=== PATIENT | male | born 1950 | race Caucasian/White ===

== ENCOUNTER 2020-01-22 09:01 | Emergency (ER) | payer MEDICARE, BC, SELFPAY ==
[2020-01-22 09:03] VITALS: BP 175/92; PULSE 66; RESP 17; TEMP 36.8; O2SAT 98; BMI 26.7
--- NOTE | 2020-01-22 09:16 | ADUL_ITS ---
Reason For Study: Cyanosis of right toes Right Velocities Ext. Iliac Artery, dist = 99.5 cm./sec. Common Femoral Artery, mid = 74.2 cm./sec. Supf Femoral Artery, prox = 31.9 cm./sec. Supf Femoral Artery, mid = 90.4 cm./sec. Supf Femoral Artery, dist. = 39.3 cm./sec. Profunda Femoral Artery = 129 cm./sec. Popliteal Artery, prox. = 30.8 cm./sec. Popliteal Artery, mid = 32.7 cm./sec. Popliteal Artery, dist = 33.6 cm./sec. Post. Tibial Artery, prox = 65.7 cm./sec. Post. Tibial Artery, mid = 44.9 cm./sec. Post. Tibial Artery, dist = 44 cm./sec. Peroneal Artery, prox = 15.9 cm./sec. Peroneal Artery, mid = 17.9 cm./sec. Peroneal artery distal, no flow noted. Ant. Tibial Artery, prox = 22 cm./sec. Ant. Tibial Artery, mid = 18.3 cm./sec. Ant. Tibial Artery, dist = 18.7 cm./sec. Procedure Prelim to Esvin. Exam performed portable in ED. Interpretation Summary Diffuse calcific disease right lower extremity arteries. 50-99% stenosis right mid superficial femoral artery 20-49% stenosis right profunda femoral artery 50-99% stenosis right peroneal artery with no flow noted distally 50-99% stenosis right anterior tibial artery 20-49% stenosis right posterior tibial artery Ordering Physician: Morgan Mcallister Referring Physician: Mahin Gomez Performed By: Susanna Felix RVT
--- NOTE | 2020-01-22 09:21 | RAD_ITS ---
STUDY: X-RAY - RIGHT FOOT CLINICAL: Male, 69 years old. 3 TOES (EXCLUDING GRT and amp; LITTLE TOE) TURNING BLUE AND PAINFUL X 3 DAYS. NKI. BORDERLINE DIABETIC TECHNIQUE: 3 view(s) of the foot. COMPARISON: None. FINDINGS: There is a plantar calcaneal spur. Normal visualized subtalar, talonavicular, calcaneocuboid, tarsal and tarsometatarsal articulations. Normal metatarsi. Normal metatarsophalangeal joint of the great toe. Normal tibial and fibular sesamoid bones. Normal interphalangeal joint of the great toe. Normal phalanges of the great toe. Normal second through fifth metatarsophalangeal joints. Normal interphalangeal joints and phalanges of the lesser toes. The soft tissue structures are unremarkable. RAD/Foot min 3 Views IMPRESSION: Plantar spur. Electronically Signed: Kaushal Joseph, at 10:57 EDT , Service support ,
--- NOTE | 2020-01-22 09:22 | ED.VISSUMM ---
- ER Visit Summary Date of Service: 01/22/20 Chief Complaint: Right foot pain History of Present Illness: The patient is a 69 M who presents with right foot pain that is been constant for the past 3 days. Patient states that his toes started turning blue 3 days ago as well. Patient states it is worse over the fourth, third, and second toes. Patient states that when he ambulates he gets pain in his calf and he has to stop. Patient states his pain improves with warm soaks. Patient does admit to some numbness and tingling in his toes. Patient describes his pain is sharp. Patient denies any trauma or injury. Physical Examination: Vital signs are stable. Patient is afebrile. Patient is in no acute distress. Musculoskeletal exam reveals some mild tenderness over the right fourth toe. There is cyanosis of the digits on the right foot, worse on the fourth toe. Capillary refill was greater than 3 seconds. Sensation was intact light touch in all digits. Pedal pulses were diminished bilaterally. There is no cyanosis of the left foot. There is full range of motion. There is no calf tenderness or edema. There is no bony crepitance, step-off, or deformity. Test Results: CBC showed slightly low platelets of 133 but was otherwise within normal limits. Comprehensive metabolic profile was essentially within normal limits. INR and PTT were normal. X-rays of the right foot were obtained. There is no evidence of osteomyelitis or acute fracture. These were interpreted by the radiologist and myself. Arterial Dopplers were obtained. There is no acute occlusion. There is some monophasic and biphasic flow from the mid femoral arteries distally. There is diminished flow from the distal superficial femoral artery distally. Emergency Department Course and Treatment: Patient was feeling better on reevaluation. Patient was started on Plavix here. Case was discussed with Dr. Akers from vascular surgery. He recommended starting the patient on Plavix and he will follow-up with the patient in the next week. Patient was also given a prescription for a short course of [place] for severe pain. Patient understood and was agreeable with the plan. All questions were answered. Disposition: Discharge home Impression: Peripheral arterial disease This note was generated with [employer] software. It may contain incorrect words, spelling, and punctuation that were not noted in review of the chart prior to signing ED Disposition - Plan for ED Patient: Disposition: Home or Assisted Living Diagnosis: Peripheral arterial disease Instructions: ED PVD Prescriptions: Hydrocodone Bitart/Apap 5-325 [[place] 5MG-325MG] 1 tab PO Q6H PRN PRN 3 Days #10 tab PRN Reason: Pain Prescription Printed Clopidogrel Bisulfate [Plavix] 75 mg PO DAILY #30 tab Prescription Printed Referrals: Rome Gomez MD [Primary Care Provider] - Manny Akers MD [STAFF PHYSICIAN] - 1-2 Weeks
[2020-01-22 09:37] LABS: Absolute Lymphocyte Count 2.14 X10^3/uL (0.83-4.51); Absolute Neutrophil Count 4.2 X10^3/uL (2.0-7.7); Basophil# 0.03 X10^3/uL; Basophil% 0.4 % (0-1); Eosinophil# 0.08 X10^3/uL; Eosinophils% 1.1 % (0-5); Hematocrit 46.6 % (40-54); Hemoglobin 15.3 g/dL (13.0-16.5); Lymphocyte # 2.14 X10^3/ul (4.0); Lymphocyte % 30.5 % (19-41); Mean Corp Hgb Conc 32.8 g/dL (32-36); Mean Corpuscular Hgb 30.4 pg (27.0-32.0); Mean Corpuscular Volume 92.5 fL (80-94); Mean Platelet Vol. 9.1 fl (6.2-12.0); Monocyte# 0.55 X10^3/uL; Monocyte% 7.8 % (0-10); NRBC Flagged by Analyzer 0 % (0-5); Neutrophil # 4.18 X10^3/uL (2.7-7.7); Neutrophil % 59.6 % (47-70); Platelet Count 133 K/mm3 (150-450); RBC Distribution Width CV 14.7 % (11.6-14.6); RBC Distribution Width SD 49.3 fl (35.1-43.9); Red Blood Count 5.04 M/mm3 (4.6-6.2)
--- NOTE | 2020-01-22 09:46 | NURSING ---
PER LAB, COAGS HEMOLIZED
[2020-01-22 09:50] LABS: AST(SGOT) 22 U/L (15-37); Alanine Aminotransfer ALT/SGPT 25 U/L (16-61); Albumin, Serum 3.9 g/dL (3.2-5.0); Alkaline Phosphatase 63 U/L (45-117); Anion Gap 7 (5-15); BUN 25 mg/dL (7-18); BUN/Creat Ratio 23.4 RATIO (10-20); Calcium,Total 9.6 mg/dL (8.5-10.1); Chloride 108 mmol/L (98-107); Creatinine, Serum 1.07 mg/dL (0.70-1.30); EST Glomerular Filtration Rate 73 mL/min (>60); Est Glom Filt Rate - Afr Amer 88 mL/min (>60); Estimated Creatinine Clearance 73.64 ml/min; Glucose 137 mg/dL (74-106); Potassium 3.9 mmol/L (3.5-5.1); Protein, Total 7.9 g/dL (6.4-8.2); Sodium Level 139 mmol/L (136-145)
[2020-01-22 10:07] LABS: Prothrombin Time (Protime)PT. 12.2 SECONDS (11.7-14.9)
[2020-01-22 10:08] LABS: Partial Thromboplast Time 31.6 Seconds (24.1-36.2)
[2020-01-22 11:42] VITALS: BP 148/88; PULSE 82; RESP 18; O2SAT 99
== END 2020-01-22 11:42 | disposition home or self-care (01) ==
PROVIDERS: Emergency Provider Emergency Medicine; PCP Family Medicine
DX: I73.9 Peripheral vascular disease, unspecified (principal); R73.03 Prediabetes; I10 Essential (primary) hypertension; D69.6 Thrombocytopenia, unspecified; Z72.0 Tobacco use; Z79.899 Other long term (current) drug therapy; Z85.6 Personal history of leukemia
CPT/HCPCS: 73630; 80053; 85025; 85610; 85730; 93926; 99283; A4216

== ENCOUNTER → 2020-02-13 07:33 | Outpatient (CLI) | payer MEDICARE, BC, SELFPAY ==
[2020-01-22 09:03] VITALS: BMI 26.7
--- NOTE | 2020-02-13 07:39 | CT_ITS ---
STUDY: CTA OF THE ABDOMINAL AORTA AND BILATERAL LOWER EXTREMITIES REASON FOR EXAM: Male, 69 years old. CLAUDICATION/ATHEROSCLEROSIS RADIATION DOSAGE (If Supplied By Facility): CTDIvol = ( 8.34 ) mGy, DLP = ( 1342.71 ) mGycm TECHNIQUE: Axial CT angiography multi-detector data acquisition was obtained from the to the following intravenous administration of 100CC ISOVUE 370. Axial images and MIP images were reconstructed from the axial data set. Post-processing of the angiographic images was performed, with multiplanar reformation and 3D reconstruction. Individualized dose optimization techniques were used for this CT. TECHNICAL QUALITY: Good COMPARISON: None. Descriptors of Narrowing: None (0%) Mild (< 50%) Moderate (50-70%) Severe (70-90%) Subtotal/Total Occlusion (90-100%) Non-Evaluable (technically non-diagnostic FINDINGS: Diffuse fatty infiltration of the liver. Small umbilical hernia containing fat. Small bilateral inguinal hernias containing fat. Abdominal aorta: Scattered atherosclerotic plaque. Fusiform infrarenal abdominal aortic aneurysm with a transverse dimension of 3.4 cm. There is evidence of a circumferential mural thrombus. Celiac and superior mesenteric arteries: No demonstrated narrowing. Inferior mesenteric artery: Not visualized. Right renal artery(arteries): No demonstrated narrowing. Left renal artery(arteries): No demonstrated narrowing. Right common iliac artery: Atherosclerotic plaque. Small amount of mural thrombus. Right external iliac artery: No demonstrated narrowing. Right internal iliac artery: No demonstrated narrowing. Left common iliac artery: Atherosclerotic plaque small amount of mural thrombus. Left external iliac artery: No demonstrated narrowing. Left internal iliac artery: No demonstrated narrowing. RIGHT LOWER EXTREMITY Right common femoral artery: No demonstrated narrowing. Right profundus femoris: No demonstrated narrowing. Right superficial femoral: There is occlusion of the right superficial femoral artery at its origin. There is reconstitution of the right superficial femoral artery in its midportion. The mid and distal portions of the superficial femoral artery show multiple areas of stenoses. Right popliteal artery: No demonstrated narrowing. Right tibioperoneal trunk: No demonstrated narrowing. Right anterior tibial artery: The vessel is patent although multiple areas of stenosis are seen worse distally. Right posterior tibial artery: No demonstrated narrowing. Right peroneal artery: No demonstrated narrowing. LEFT LOWER EXTREMITY Left common femoral artery: No demonstrated narrowing. Left profundus femoris: No demonstrated narrowing. Left superficial femoral: No demonstrated narrowing. Left popliteal artery: No demonstrated narrowing. Left tibioperoneal trunk: No demonstrated narrowing. Left anterior tibial artery: No demonstrated narrowing. Left posterior tibial artery: No demonstrated narrowing. Left peroneal artery: No demonstrated narrowing. CT/CTA Abd w/Runoff W/WO Contrast IMPRESSION: Infrarenal abdominal aortic aneurysm with a transverse dimension of 3.4 cm. Mural thrombus is seen. Occlusion of the right superficial femoral artery at its origin with reconstitution in its midportion. The mid and distal portions of the superficial femoral arteries show multiple areas of stenosis. Marked degrees of stenosis throughout the course of the right anterior tibial artery. Electronically Signed: Kaushal Joseph, at 11:20 EDT , Service support ,
--- NOTE | 2020-02-13 07:40 | ART_ITS ---
Reason For Study: Atherosclerosis Procedure A bilateral lower extremity continuous wave Doppler with analog waveform analysis and ankle brachial indexes. Left Segmental Pressures Left brachial= 137mmHg. Left posterior tibial artery = 127mmHg. Left dorsalis pedis artery = 128mmHg. Left digit = 99 mmHg. The left dorsalis pedis waveforms are biphasic. The left posterior tibial artery waveforms are biphasic. Right Segmental Pressures Right brachial= 136mmHg. Right posterior tibial artery = 73mmHg. Right dorsalis pedis artery = 65mmHg. Right digit = 48 mmHg. The right dorsalis pedis waveforms are monophasic. The right posterior tibial artery waveforms are monophasic. Indices The right ankle brachial index by the dorsalis pedis is 0.47. The right ankle brachial index by the posterior tibial artery is 0.53. The right digital-brachial index is 0.35. The left ankle brachial index by the dorsalis pedis is 0.93. The left ankle brachial index by the posterior tibial artery is 0.93. The left digital-brachial index is 0.72. Interpretation Summary Right leg monophasic with STEPHANIE 0.53 and left leg biphasic with STEPHANIE 0.9. DBI 0.35 and 0.72. Ordering Physician: Manny Akers Referring Physician: Mahin Gomez Performed By: Susanna Felix RVT
== END ==
PROVIDERS: PCP Family Medicine; Referring Provider Surgery Vascular Surgery; Visit Provider Surgery Vascular Surgery
DX: I70.213 Atherosclerosis of native arteries of extremities with intermittent claudication, bilateral legs (principal)
CPT/HCPCS: 75635; 93922; Q9967

== ENCOUNTER → 2020-07-05 12:37 | Outpatient (CLI) | payer MEDICARE, BC, SELFPAY ==
--- NOTE | 2020-07-05 12:41 | ART_ITS ---
Reason For Study: atherosclerosis Procedure A bilateral lower extremity continuous wave Doppler with analog waveform analysis and ankle brachial indexes. Left Segmental Pressures Left brachial= 124mmHg. Left posterior tibial artery = 108mmHg. Left dorsalis pedis artery = 111mmHg. Left digit = 118 mmHg. The left dorsalis pedis waveforms are biphasic. The left posterior tibial artery waveforms are biphasic. Right Segmental Pressures Right brachial= 127mmHg. Right posterior tibial artery = 118mmHg. Right dorsalis pedis artery = 101mmHg. Right digit = 110 mmHg. The right dorsalis pedis waveforms are biphasic. The right posterior tibial artery waveforms are biphasic. Indices The right ankle brachial index by the posterior tibial artery is .93. The right ankle brachial index by the dorsalis pedis is .8. The right digital-brachial index is .87. The left ankle brachial index by the posterior tibial artery is .85. The left ankle brachial index by the dorsalis pedis is .87. The left digital-brachial index is .93. Interpretation Summary Right leg triphasic and STEPHANIE 0.93. Left leg biphasic and STEPHANIE 0.87. Ordering Physician: Manny Akers Performed By: LUIS LACY Asim
--- NOTE | 2020-07-05 12:56 | ADUL_ITS ---
Reason For Study: atherosclerosis Right Velocities Ext. Iliac Artery, dist = 112.5 cm./sec. Common Femoral Artery, mid = 72.0 cm./sec. Supf Femoral Artery, prox = 71.9 cm./sec. Supf Femoral Artery, mid = 63.3 cm./sec. Supf Femoral Artery, dist. = 43.7 cm./sec. Profunda Femoral Artery = 67.0 cm./sec. Popliteal Artery, prox. = 62.1 cm./sec. Popliteal Artery, mid = 43.7 cm./sec. Popliteal Artery, dist = 38.8 cm./sec. Ant. Tibial Artery, prox = 86.6 cm./sec. Ant. Tibial Artery, mid = 32.6 cm./sec. Ant. Tibial Artery, dist = 47.3 cm./sec. Post. Tibial Artery, prox = 76.8 cm./sec. Post. Tibial Artery, mid = 40.0 cm./sec. Post. Tibial Artery, dist = 42.5. cm./sec. Peroneal Artery, prox = 35.1 cm./sec. Peroneal Artery, mid = 33.9 cm./sec. Peroneal Artery,dist = 33.9 cm./sec. Procedure The exam was diagnostic. Exam performed in department. Interpretation Summary Right leg no stenosis and triphasic flow noted throughout. Ordering Physician: Manny Akers Performed By: Ad Burns RVT
== END ==
PROVIDERS: PCP Family Medicine; Referring Provider Surgery Vascular Surgery; Visit Provider Surgery Vascular Surgery
DX: I70.211 Atherosclerosis of native arteries of extremities with intermittent claudication, right leg (principal)
CPT/HCPCS: 93922; 93926

== ENCOUNTER → 2021-01-30 08:59 | Outpatient (CLI) | payer MEDICARE, BC, SELFPAY ==
--- NOTE | 2021-01-30 09:02 | ART_ITS ---
Reason For Study: atherosclerosis with claudication Procedure A bilateral lower extremity continuous wave Doppler with analog waveform analysis and ankle brachial indexes. Left Segmental Pressures Left brachial= 134mmHg. Left posterior tibial artery = 135mmHg. Left dorsalis pedis artery = 115mmHg. The left posterior tibial artery waveforms are triphasic. The left dorsalis pedis waveforms are biphasic. Right Segmental Pressures Right brachial= 140mmHg. Right posterior tibial artery = 126mmHg. Right dorsalis pedis artery = 103mmHg. The right dorsalis pedis waveforms are biphasic. The right posterior tibial artery waveforms are triphasic. Indices The right ankle brachial index by the dorsalis pedis is .74. The right ankle brachial index by the posterior tibial artery is .9. The left ankle brachial index by the posterior tibial artery is .96. The left ankle brachial index by the dorsalis pedis is .82. VL/Ankle Brachial Index Interpretation Summary Right leg with no significant occlusive disease at rest with an STEPHANIE 0.9 and tri phasic l flow of the posterior tibial. Left leg with no evidence of significant occlusive disease at rest with an STEPHANIE 0.96 and triphasic flow in the posterior tibial. Ordering Physician: Manny Akers Performed By: LUIS LACY Asim
--- NOTE | 2021-01-30 09:02 | ADUL_ITS ---
Reason For Study: atherosclerosis with claudication Right Velocities Ext. Iliac Artery, dist = 95.1 cm./sec. Common Femoral Artery, mid = 65.4 cm./sec. Supf Femoral Artery, prox = 55.5 cm./sec. Supf Femoral Artery, mid = 43.5 cm./sec. Supf Femoral Artery, dist. = 43.7 cm./sec. Profunda Femoral Artery = 50.0 cm./sec. Popliteal Artery, prox. = 40.0 cm./sec. Popliteal Artery, mid = 42.5 cm./sec. Popliteal Artery, dist = 32.7 cm./sec. Post. Tibial Artery, prox = 42.5 cm./sec. Post. Tibial Artery, mid = 44.9 cm./sec. Post. Tibial Artery, dist = 49.8 cm./sec. Peroneal Artery, prox = 37.6 cm./sec. Peroneal Artery, mid = 51.1 cm./sec. Peroneal Artery,dist = 37.6 cm./sec. Ant. Tibial Artery, prox = 21.6 cm./sec. Ant. Tibial Artery, mid = 14.5 cm./sec. Ant. Tibial Artery, dist = 16.2 cm./sec. Procedure The exam was diagnostic. Exam performed in department. /US Art Duplex Unilat Lower Ext Interpretation Summary Right leg with no evidence of significant occlusive disease with triphasic flow noted throughout except decreased flow noted in the anterior tibial artery. Ordering Physician: Manny Akers Performed By: Ad Burns, RVT
== END ==
PROVIDERS: PCP Family Medicine; Referring Provider Surgery Vascular Surgery; Visit Provider Surgery Vascular Surgery
DX: Z48.812 Encounter for surgical aftercare following surgery on the circulatory system (principal); I70.211 Atherosclerosis of native arteries of extremities with intermittent claudication, right leg; Z72.0 Tobacco use
CPT/HCPCS: 93922; 93926

== ENCOUNTER → 2022-05-13 | Outpatient (CLI) | payer MEDICARE, BC, SELFPAY ==
--- NOTE | 2022-05-13 08:43 | ADUL_ITS ---
Reason For Study: AAA, Tobacco use Right Velocities Ext. Iliac Artery, dist = 65 cm./sec. Common Femoral Artery, mid = 62 cm./sec. Supf Femoral Artery, prox = 33 cm./sec. Supf Femoral Artery, mid = 34 cm./sec. Supf Femoral Artery, dist. = 12 cm./sec. Profunda Femoral Artery = 71 cm./sec. Popliteal Artery, prox. = 449 cm./sec. Rt Pop A prox pre stenosis: 28 cm/s Rt Pop A prox at stenosis: 449 cm/s Rt Pop A prox post stenosis: 178 cm/s Rt IGNACIO mid no flow noted. Popliteal Artery, mid = 42 cm./sec. Popliteal Artery, dist = 13 cm./sec. Post. Tibial Artery, prox = 13 cm./sec. Post. Tibial Artery, mid = 13 cm./sec. Post. Tibial Artery, dist = 11 cm./sec. Peroneal Artery, prox = 19 cm./sec. Peroneal Artery, mid = 18 cm./sec. Peroneal Artery,dist = 16 cm./sec. Ant. Tibial Artery, prox = 6 cm./sec. Ant. Tibial Artery, dist = 8 cm./sec. /US Art Duplex Unilat Lower Ext Interpretation Summary Right popliteal artery with severe stenosis. Ordering Physician: Manny Akers Referring Physician: Mahin Gomez Performed By: Galilea Bennett, BARBARA, RVT
--- NOTE | 2022-05-13 08:44 | ART_ITS ---
Reason For Study: AAA, Tobacco use Procedure A bilateral lower extremity continuous wave Doppler with analog waveform analysis and ankle brachial indexes. Left Segmental Pressures Left brachial= 162mmHg. Left posterior tibial artery = 161mmHg. Left dorsalis pedis artery = 163mmHg. Left digit = 152 mmHg. Right Segmental Pressures Right brachial= 157mmHg. Right posterior tibial artery = 106mmHg. Right dorsalis pedis artery = 78mmHg. Right digit = 110 mmHg. Indices The right ankle brachial index by the posterior tibial artery is 0.65. The right ankle brachial index by the dorsalis pedis is 0.48. The right digital-brachial index is 0.68. The left ankle brachial index by the posterior tibial artery is 0.99. The left ankle brachial index by the dorsalis pedis is 1.01. The left digital-brachial index is 0.94. VL/Ankle Brachial Index Interpretation Summary Right moderate occlussive disease at rest with STEPHANIE 0.65. Left leg normal at res t with STEPHANIE 1.01. Ordering Physician: Manny Akers Referring Physician: Mahin Gomez Performed By: Galilea Bennett RDCS/RVT
--- NOTE | 2022-05-13 08:44 | AAVD_ITS ---
Reason For Study: AAA, Tobacco use Aorta Measurements Aorta Doppler Measurements Proximal aorta measures2.57cm x 2.36cm. in cross- Peak systolic flow velocities within the proximal sectional axis. aorta measure 54 cm/sec. Proximal aorta measures2.50cm. in longitudinal Peak systolic flow velocities within the mid aorta axis. measure 45 cm/sec. Mid aorta measures2.34cm x 2.40cm. in cross- Peak systolic flow velocities within the distal sectional axis. aorta measure 45 cm/sec. Mid aorta measures1.99cm. in longitudinal axis. Distal aorta measures3.35cm x 3.68cm. in cross- sectional axis. Distal aorta measures3.29cm. in longitudinal axis. Distal aorta true lumen measures 2.24cm x 2.10cm with mural thrombus noted. Left Iliac Artery Left iliac artery measures 0.86cm x 0.91 cm. in the cross-sectional axis. Left iliac artery measures 0.88 cm. in the longitudinal axis. Peak systolic velocity in the left iliac artery measures 181 cm/sec. Right Iliac Artery Right iliac artery measures 1.17cm x 1.20 cm. in the cross-sectional axis. Right iliac artery measures 1.11 cm. in the longitudinal axis. Peak systolic velocity in the right iliac artery measures 266 cm/sec. Procedure Aorta IVC Iliac vasculature or bypass grafts [id number]. Exam performed in department. VL/Abd Aortic/IVC Duplex scan Interpretation Summary Aorticv aneurysm at 3.3cm. Moderate right JAYLA stenosis. Ordering Physician: Manny Akers Referring Physician: Mahin Gomez Performed By: Galilea Bennett RDCS, RVT
== END | disposition home or self-care (01) ==
PROVIDERS: PCP Family Medicine; Referring Provider Surgery Vascular Surgery; Visit Provider Surgery Vascular Surgery
DX: I70.211 Atherosclerosis of native arteries of extremities with intermittent claudication, right leg (principal); I71.4 Abdominal aortic aneurysm, without rupture; Z48.812 Encounter for surgical aftercare following surgery on the circulatory system; Z72.0 Tobacco use
CPT/HCPCS: 93922; 93926; 93978

== ENCOUNTER → 2023-01-04 | Outpatient (CLI) | payer MEDICARE, BC, SELFPAY ==
--- NOTE | 2023-01-04 08:52 | ART_ITS ---
Reason For Study: Atherosclerosis Procedure A bilateral lower extremity continuous wave Doppler with analog waveform analysis and ankle brachial indexes. Left Segmental Pressures Left brachial= 147mmHg. Left posterior tibial artery = 166mmHg. Left dorsalis pedis artery = 157mmHg. Left digit = 126 mmHg. The left dorsalis pedis waveforms are biphasic. The left posterior tibial artery waveforms are triphasic. Right Segmental Pressures Right brachial= 146mmHg. Right posterior tibial artery = 157mmHg. Right dorsalis pedis artery = 132mmHg. Right digit = 126 mmHg. The right dorsalis pedis waveforms are triphasic. The right posterior tibial artery waveforms are triphasic. Indices The right ankle brachial index by the dorsalis pedis is 0.90. The right ankle brachial index by the posterior tibial artery is 1.07. The right digital-brachial index is 0.86. The left ankle brachial index by the dorsalis pedis is 1.07. The left ankle brachial index by the posterior tibial artery is 1.13. The left digital-brachial index is 0.86. VL/Ankle Brachial Index Interpretation Summary Bilateral normal with triphasic flow and STEPHANIE 1.07 and 1.13. Ordering Physician: Manny Akers Referring Physician: Mahin Gomez Performed By: Susanna Felix RVT
--- NOTE | 2023-01-04 08:52 | AAVD_ITS ---
Reason For Study: AAA Aorta Measurements Aorta Doppler Measurements Proximal aorta measures2.32 x 2.30cm. in cross- Peak systolic flow velocities within the proximal sectional axis. aorta measure 59.6 cm/sec. Proximal aorta measures2.30cm. in longitudinal Peak systolic flow velocities within the mid aorta axis. measure 37.3 cm/sec. Mid aorta measures2.50 x 2.52cm. in cross- Peak systolic flow velocities within the distal sectional axis. aorta measure 28.5 cm/sec. Mid aorta measures2.54cm. in longitudinal axis. Distal aorta measures3.26 x 3.81cm. in cross- sectional axis. Distal aorta measures3.29cm. in longitudinal axis. Distal aorta true lumen measures 2.03 x 2.05 x 2.02 cm with mural thrombus noted. Left Iliac Artery Left iliac artery measures 0.73 x 0.77 cm. in the cross-sectional axis. Left iliac artery measures 0.73 cm. in the longitudinal axis. Peak systolic velocity in the left iliac artery measures 203.4 cm/sec. Right Iliac Artery Right iliac artery measures 0.89 x 0.88 cm. in the cross-sectional axis. Right iliac artery measures 0.86 cm. in the longitudinal axis. Peak systolic velocity in the right iliac artery measures 251.9 cm/sec. Procedure Aorta IVC Iliac vasculature or bypass grafts [id number]. Exam performed in department. 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 Right common iliac moderate stenosis. Ordering Physician: Manny Akers Referring Physician: Mahin Gomez Performed By: Susanna Felix RVT
--- NOTE | 2023-01-04 08:52 | ADUL_ITS ---
Reason For Study: Atherosclerosis Right Velocities Ext. Iliac Artery, dist = 122.7 cm./sec. Common Femoral Artery, mid = 85.7 cm./sec. Supf Femoral Artery, prox = 133.2 cm./sec. Supf Femoral Artery, mid = 94.8 cm./sec. SFA distal, prox to stent, 74.7 cm/sec. SFA distal, Prox Stent, 60.1 cm/sec. SFA distal, Mid Stent, 91.1 cm/sec. Uyen prox, Distal Stent, 65.6 cm/sec. Uyen prox, distal to stent, 60.1 cm/sec. Profunda Femoral Artery = 83.8 cm./sec. Popliteal Artery, mid = 56.4 cm./sec. Popliteal Artery, dist = 51.5 cm./sec. Post. Tibial Artery, prox = 60.3 cm./sec. Post. Tibial Artery, mid = 64.7 cm./sec. Post. Tibial Artery, dist = 41.7 cm./sec. Peroneal Artery, prox = 43.9 cm./sec. Peroneal Artery, mid = 69.1 cm./sec. Peroneal Artery,dist = 55.9 cm./sec. Ant. Tibial Artery, prox = 16.6 cm./sec. Ant. Tibial Artery, mid = 60.4 cm./sec. Ant. Tibial Artery, dist = 53.8 cm./sec. Procedure Exam performed in department. /US Art Duplex Unilat Lower Ext Interpretation Summary Right leg no stenosis. Ordering Physician: Manny Akers Referring Physician: Mahin Gomez Performed By: Susanna Felix RVT
== END | disposition home or self-care (01) ==
LOC: CVS 08:49
PROVIDERS: PCP Family Medicine; Referring Provider Surgery Vascular Surgery; Visit Provider Surgery Vascular Surgery
DX: Z48.812 Encounter for surgical aftercare following surgery on the circulatory system (principal); I70.211 Atherosclerosis of native arteries of extremities with intermittent claudication, right leg; I71.43 Infrarenal abdominal aortic aneurysm, without rupture; Z72.0 Tobacco use
CPT/HCPCS: 93922; 93926; 93978

== ENCOUNTER → 2023-06-04 | Outpatient (CLI) | payer MEDICARE, BC, SELFPAY ==
[2023-06-04 17:58] LABS: Bacteria 0 SEEN /hpf (None Seen); Mucous, Urine 0 SEEN /hpf (<or=2+); White Blood Cells 0 SEEN /hpf (0-5)
[2023-06-04 18:46] LABS: Color, Urine Amber (Yellow); Glucose, Dipstick Normal (Normal); Ketone-Dipstick 5 mg/dl (Negative); Leukocyte Esterase-Dipstick Negative /ul (Negative); Nitrite-Dipstick Negative (Negative); Occult Blood-Urine 250 /ul (Negative); Protein-Dipstick 500 mg/dl (Negative); Urine Bilirubin Dipstick Negative (Negative); Urine Clarity Turbid (Clear); Urine Urobilinogen Normal (Normal)
[2023-06-04 19:42] LABS: Amorphous Sediment 1+ PHOS; Red Blood Cells-Urine > 100 SEEN /hpf (0-5); Squamous Epithelial Cells - UA 5-10 SEEN /hpf (0-5)
== END | disposition home or self-care (01) ==
PROVIDERS: PCP Family Medicine; Visit Provider Physician Assistant Surgical
DX: R30.9 Painful micturition, unspecified (principal)
CPT/HCPCS: 81001; 87086

== ENCOUNTER → 2023-09-29 | Outpatient (CLI) | payer MEDICARE, BC, SELFPAY ==
[2023-09-29 11:08] LABS: Albumin, Serum 3.6 g/dL (3.2-5.0); BUN 27 mg/dL (7-18); BUN/Creat Ratio 19.6 RATIO (10-20); Calcium,Total 10.2 mg/dL (8.5-10.1); Chloride 112 mmol/L (98-107); Creatinine, Serum 1.38 mg/dL (0.70-1.30); EST Glomerular Filtration Rate 54 mL/min (>60); Est Glom Filt Rate - Afr Amer 65 mL/min (>60); Glucose 220 mg/dL (74-106); Phosphorus 2.6 mg/dL (2.5-4.9); Potassium 3.9 mmol/L (3.5-5.1); Sodium Level 141 mmol/L (136-145)
== END | disposition home or self-care (01) ==
LOC: LAB 10:01
PROVIDERS: PCP Family Medicine; Referring Provider Internal Medicine Nephrology; Visit Provider Internal Medicine Nephrology
DX: N18.2 Chronic kidney disease, stage 2 (mild) (principal)
CPT/HCPCS: 36415; 80069

== ENCOUNTER → 2023-10-05 | Outpatient (CLI) | payer MEDICARE, BC, SELFPAY ==
[2023-10-05 13:53] LABS: Bacteria 0 SEEN /hpf (None Seen); Mucous, Urine 0 SEEN /hpf (<or=2+); Squamous Epithelial Cells - UA 0 SEEN /hpf (0-5)
[2023-10-05 16:01] LABS: Protein, Urine (Random) 83.2 mg/dL (<11.9); Protein:Creat Ratio 999 mg/g CRE (0-200)
[2023-10-05 16:08] LABS: Color, Urine Yellow (Yellow); Glucose, Dipstick Normal (Normal); Ketone-Dipstick Negative (Negative); Leukocyte Esterase-Dipstick Negative /ul (Negative); Nitrite-Dipstick Negative (Negative); Occult Blood-Urine 10 /ul (Negative); Protein-Dipstick 100 mg/dl (Negative); Urine Bilirubin Dipstick Negative (Negative); Urine Clarity Clear (Clear); Urine Urobilinogen Normal (Normal)
[2023-10-05 16:49] LABS: Red Blood Cells-Urine 0-5 SEEN /hpf (0-5); White Blood Cells 0-5 SEEN /hpf (0-5)
== END | disposition home or self-care (01) ==
LOC: POLAB3 13:42
PROVIDERS: PCP Family Medicine; Visit Provider Internal Medicine Nephrology
DX: R80.9 Proteinuria, unspecified (principal)
CPT/HCPCS: 36415; 81001; 82570; 84156

== ENCOUNTER → 2023-12-17 | Outpatient (CLI) | payer MEDICARE, BC, SELFPAY ==
[2023-12-17 11:28] LABS: Protein:Creat Ratio 891 mg/g CRE (0-200)
[2023-12-17 11:31] LABS: BUN 27 mg/dL (7-18); Calcium,Total 9.7 mg/dL (8.5-10.1); Chloride 112 mmol/L (98-107); Creatinine, Serum 1.35 mg/dL (0.70-1.30); EST Glomerular Filtration Rate 55 mL/min (>60); Est Glom Filt Rate - Afr Amer 67 mL/min (>60); Glucose 118 mg/dL (74-106); Phosphorus 2.6 mg/dL (2.5-4.9); Potassium 4.2 mmol/L (3.5-5.1); Sodium Level 141 mmol/L (136-145)
== END | disposition home or self-care (01) ==
LOC: POLAB3 10:35
PROVIDERS: PCP Family Medicine; Visit Provider Internal Medicine Nephrology
DX: R80.9 Proteinuria, unspecified (principal); N18.2 Chronic kidney disease, stage 2 (mild)
CPT/HCPCS: 36415; 80069; 82570; 84156

== ENCOUNTER → 2024-03-06 | Outpatient (CLI) | payer MEDICARE, BC, SELFPAY ==
--- NOTE | 2024-03-06 07:50 | ART_ITS ---
Reason For Study: ATHEROSCLEROSIS Procedure A bilateral lower extremity continuous wave Doppler with analog waveform analysis and ankle brachial indexes. Left Segmental Pressures Left posterior tibial artery = 180mmHg. Left dorsalis pedis artery = 171mmHg. Left brachial= 163mmHg. Left digit = 152 mmHg. The left dorsalis pedis waveforms are triphasic. The left posterior tibial artery waveforms are triphasic. Right Segmental Pressures Right brachial= 179mmHg. Right posterior tibial artery = 128mmHg. Right dorsalis pedis artery = 127mmHg. Right digit = 145 mmHg. The right dorsalis pedis waveforms are biphasic. The right posterior tibial artery waveforms are biphasic. Indices The right ankle brachial index by the dorsalis pedis is 0.71. The right ankle brachial index by the posterior tibial artery is 0.72. The right digital-brachial index is 0.81. The left ankle brachial index by the dorsalis pedis is 0.96. The left ankle brachial index by the posterior tibial artery is 1.01. The left digital-brachial index is 0.85. VL/Ankle Brachial Index Interpretation Summary Right mild disease with STEPHANIE 0.72 and left normal at 1.01. digits 0.81 and 0.85. Ordering Physician: Manny Akers Referring Physician: KASH EDMONDSON MD Performed By: Susanna Felix RVT and Student
--- NOTE | 2024-03-06 07:50 | ADUL_ITS ---
Reason For Study: Atherosclerosis Right Velocities Ext. Iliac Artery, dist = 70.9 cm./sec. Common Femoral Artery, mid = 67.4 cm./sec. SFA prox, prox to stenosis, 43.7 cm/sec. SFA prox, stenosis, 194.1 cm/sec. SFA prox, dist to stenosis, 96.4 cm/sec. SFA mid, 53.9 cm/sec. SFA distal, prox to stent, 34.9 cm/sec. SFA distal, Prox Stent, 36.7 cm/sec. SFA distal, Mid Stent, 446.1 cm/sec. Uyen prox, Distal Stent, 186.2 cm/sec. Uyen prox, distal to stent, 28.9 cm/sec. Profunda Femoral Artery = 85.8 cm./sec. Post. Tibial Artery, prox = 42.1 cm./sec. Post. Tibial Artery, mid = 34.6 cm./sec. Post. Tibial Artery, dist = 38.4 cm./sec. Peroneal Artery, prox = 27.6 cm./sec. Peroneal Artery, mid = 44.1 cm./sec. Peroneal Artery,dist = 32.8 cm./sec. Ant. Tibial Artery, prox = 9.6 cm./sec. Ant. Tibial Artery, mid = 9.6 cm./sec. Ant. Tibial Artery, dist = 21.6 cm./sec. Procedure Exam performed in department. /US Art Duplex Unilat Lower Ext Interpretation Summary Right mid stent severe stenosis but maintained triphasic flow distally. Ordering Physician: Manny Akers Referring Physician: Mahin Gomez Performed By: Susanna Felix RVT
--- NOTE | 2024-03-06 07:50 | AAVD_ITS ---
Reason For Study: AAA Aorta Measurements Aorta Doppler Measurements Proximal aorta measures2.25 x 2.21cm. in cross- Peak systolic flow velocities within the proximal sectional axis. aorta measure 43.3 cm/sec. Proximal aorta measures2.25cm. in longitudinal Peak systolic flow velocities within the mid aorta axis. measure 52.7 cm/sec. Mid aorta measures2.33 x 2.33cm. in cross- Peak systolic flow velocities within the distal sectional axis. aorta measure 33 cm/sec. Mid aorta measures2.28cm. in longitudinal axis. Distal aorta measures3.59 x 3.56cm. in cross- sectional axis. Distal aorta measures3.50cm. in longitudinal axis. 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 True lumen measures 1.63x 2.16 x 1.78 cm. Left Iliac Artery Left iliac artery measures 0.69 x 0.70 cm. in the cross-sectional axis. Left iliac artery measures 0.72 cm. in the longitudinal axis. Peak systolic velocity in the left iliac artery measures 187.2 cm/sec. Right Iliac Artery Right iliac artery measures 0.97 x 0.97 cm. in the cross-sectional axis. Right iliac artery measures 0.94 cm. in the longitudinal axis. Peak systolic velocity in the right iliac artery measures 213.1 cm/sec. VL/Abd Aortic/IVC Duplex scan Interpretation Summary Aortic aneurysm at 3.6cm. Ordering Physician: Manny Akers Referring Physician: Mahin Gomez Performed By: Susanna Felix RVT
== END | disposition home or self-care (01) ==
LOC: CVS 07:40
PROVIDERS: PCP Family Medicine; Referring Provider Surgery Vascular Surgery; Visit Provider Surgery Vascular Surgery
DX: Z48.812 Encounter for surgical aftercare following surgery on the circulatory system (principal); I70.211 Atherosclerosis of native arteries of extremities with intermittent claudication, right leg; I71.43 Infrarenal abdominal aortic aneurysm, without rupture; Z72.0 Tobacco use
CPT/HCPCS: 93922; 93926; 93978

== ENCOUNTER → 2024-04-05 | Outpatient (CLI) | payer MEDICARE, BC, SELFPAY ==
[2024-04-05 12:33] LABS: Protein, Urine (Random) 137.4 mg/dL (<11.9); Protein:Creat Ratio 1216 mg/g CRE (0-200)
[2024-04-05 12:42] LABS: Albumin, Serum 3.9 g/dL (3.2-5.0); BUN 27 mg/dL (7-18); BUN/Creat Ratio 23.9 RATIO (10-20); Calcium,Total 10.1 mg/dL (8.5-10.1); Chloride 108 mmol/L (98-107); Creatinine, Serum 1.13 mg/dL (0.70-1.30); EST Glomerular Filtration Rate 68 mL/min (>60); Est Glom Filt Rate - Afr Amer 82 mL/min (>60); Glucose 111 mg/dL (74-106); Phosphorus 2.6 mg/dL (2.5-4.9); Potassium 3.7 mmol/L (3.5-5.1); Sodium Level 141 mmol/L (136-145)
== END | disposition home or self-care (01) ==
LOC: LAB 11:04
PROVIDERS: PCP Family Medicine; Visit Provider Internal Medicine Nephrology
DX: N18.2 Chronic kidney disease, stage 2 (mild) (principal)
CPT/HCPCS: 36415; 80069; 82570; 84156

== ENCOUNTER → 2024-11-15 | Outpatient (CLI) | payer MEDICARE, BC, SELFPAY ==
[2024-11-15 11:36] LABS: Albumin, Serum 4.5 g/dL (3.4-4.8); Anion Gap 14 (5-15); BUN 22 mg/dL (4-19); BUN/Creat Ratio 21.5 RATIO (10-20); Carbon Dioxide 21.9 mmol/L (21.0-32.0); Chloride 105 mmol/L (98-108); Creatinine, Serum 1.02 mg/dL (0.70-1.20); EST Glomerular Filtration Rate 77 (>60); Glucose 140 mg/dL (70-99); Phosphorus 2.8 mg/dL (2.7-4.5); Potassium 4.2 mmol/L (3.3-5.1); Sodium Level 141 mmol/L (133-145)
[2024-11-15 12:08] LABS: Protein:Creat Ratio 1106 mg/g CRE (0-200)
== END | disposition home or self-care (01) ==
LOC: POLAB3 09:49
PROVIDERS: PCP Family Medicine; Visit Provider Internal Medicine Nephrology
DX: E11.22 Type 2 diabetes mellitus with diabetic chronic kidney disease (principal); N18.2 Chronic kidney disease, stage 2 (mild)
CPT/HCPCS: 36415; 80069; 82570; 84156

== ENCOUNTER → 2025-02-22 | Outpatient (CLI) | payer MEDICARE, BC, SELFPAY ==
--- NOTE | 2025-02-22 13:52 | ADU_ITS ---
Reason For Study Reason For Study: Atherosclerosis Right Velocities Left Velocities Ext. Iliac Artery, dist = 86.1 cm./sec. Ext Iliac Artery, mid = 119.4 cm./sec. Common Femoral Artery, mid = 84.6 cm./sec. Common Femoral Artery, mid = 92.4 cm./sec. SFA prox, prox to stenosis, 27.3 cm/sec. Supf. Femoral Artery, prox = 76 cm./sec. SFA prox, stenosis, 122.2 cm/sec. Supf. Femoral Artery, mid = 138.1 cm./sec. SFA prox, dist to stenosis, 47.1 cm/sec. Supf. Femoral Artery, dist = 83.3 cm./sec. SFA mid, 36.7 cm/sec. Profunda Femoral Artery = 81.5 cm./sec. SFA mid - Uyen prox, No Flow detected. Popliteal Artery, mid = 75.6 cm./sec. SFA distal stent, No Flow detected. Post. Tibial Artery, prox = 130.8 cm./sec. Uyen mid, 13.5 cm/sec. Post Tibial Artery, mid = 89.1 cm./sec. Popliteal Artery, prox. = 129.3 cm./sec. Post Tibial Artery, dist. = 63.4 cm./sec. Post. Tibial Artery, prox = 21.3 cm./sec. Peroneal Artery, prox = 44.6 cm./sec. Post. Tibial Artery, mid = 22.7 cm./sec. Peroneal Artery, mid = 62.2 cm./sec. Post. Tibial Artery, dist = 21.3 cm./sec. Peroneal Artery,dist. = 50.1 cm./sec. Peroneal Artery, prox = 15.6 cm./sec. Ant.Tibial Artery, prox = 24.1 cm./sec. Peroneal Artery, mid = 19.1 cm./sec. Ant Tibial Artery, mid = 11.9 cm./sec. Peroneal Artery,dist = 12 cm./sec. Ant. Tibial Artery, distal = 25.8 cm./sec. Ant. Tibial Artery, prox = 6.9 cm./sec. IGNACIO mid, No Flow detected. IGNACIO distal, Retrograde flow. DPA, 7 cm/sec. Procedure Exam performed in department. Preliminary report given to Beba. /US Art Duplex Bilat Lower Ext Interpretation Summary Right femoral occluded distally. Left leg normal and no stenosis. Ordering Physician: Manny Akers Referring Physician: Mahin Gomez Performed By: Susanna Felix RVT
--- NOTE | 2025-02-22 13:52 | ART_ITS ---
Reason For Study Reason For Study: Pain Procedure A bilateral lower extremity continuous wave Doppler with analog waveform analysis and ankle brachial indexes. Left Segmental Pressures Left brachial= 139mmHg. Left posterior tibial artery = 150mmHg. Left dorsalis pedis artery = 108mmHg. Left digit = 157 mmHg. The left dorsalis pedis waveforms are biphasic. The left posterior tibial artery waveforms are triphasic. Right Segmental Pressures Right brachial= 150mmHg. Right posterior tibial artery = 63mmHg. Flow visualized on ultrasound. Unable to obtain doppler and pressure in right DP using PVR. Indices The right ankle brachial index by the posterior tibial artery is 0.42. The left ankle brachial index by the dorsalis pedis is 0.72. The left ankle brachial index by the posterior tibial artery is 1.00. The left digital-brachial index is 1.05. VL/Ankle Brachial Index Interpretation Summary The right resting ankle-brachial index appears moderately abnormal. The left re sting ankle-brachial index appears normal. Ordering Physician: Pedrito Pitts Referring Physician: PEDRITO PITTS DR. Performed By: ULISES CHINCHILLA T
== END | disposition home or self-care (01) ==
LOC: CVS 13:51
PROVIDERS: PCP Family Medicine; Referring Provider Surgery Vascular Surgery; Visit Provider Surgery Vascular Surgery
DX: M79.604 Pain in right leg (principal); Z48.812 Encounter for surgical aftercare following surgery on the circulatory system; I70.213 Atherosclerosis of native arteries of extremities with intermittent claudication, bilateral legs; I10 Essential (primary) hypertension; Z72.0 Tobacco use
CPT/HCPCS: 93922; 93925

== ENCOUNTER → 2025-04-16 | Outpatient (CLI) | payer MEDICARE, BC, SELFPAY ==
--- NOTE | 2025-04-16 06:32 | ECHOD_ITS ---
Reason For Study Reason For Study: CHEST PAIN Procedure This was a 2D Doppler, Color Flow transthoracic echocardiogram. Myocardial strain analysis was performed in this exam to aid in the assessment of cardiac function. Exam performed in department. Left Ventricle Normal LV size. Mild concentric left ventricular hypertrophy. Left ventricular systolic function is normal. The left ventricular ejection fraction is 55 %. Stage 1 diastolic dysfunction. No regional wall motion abnormalities noted. Right Ventricle Normal RV size. Normal systolic function. Atria Normal left atrium. Normal right atrium. Mitral Valve Normal mitral valve. Aortic Valve Trisinus/trileaflet aortic valve. Mild (1+) eccentric aortic valve insufficiency. Pulmonic Valve Normal pulmonic valve. Great Vessels Normal aortic root. Pericardium/Pleural No pericardial effusion. MMode/2D Measurements & Calculations LVIDd: 4.9 cm IVSd: 1.4 cm LVOT diam: 2.2 cm LVIDs: 2.6 cm LVPWd: 1.2 cm LVOT area: 3.8 cm2 RVDd: 3.8 cm FS: 47.1 % asc Aorta Diam: 3.9 cm LAV(MOD-bp): 41.7 ml LVAd ap4: 25.5 cm2 LAV(MOD-bp) Indexed: 20.1 ml/m2 LVLd ap4: 8.3 cm LAV(MOD-sp2): 61.7 ml EDV(MOD-sp4): 66.5 ml LAV(MOD-sp4): 26.3 ml EDV(sp4-el): 66.9 ml LVAs ap4: 15.6 cm2 LVLs ap4: 7.1 cm ESV(MOD-sp4): 30.9 ml ESV(sp4-el): 29.3 ml EF(MOD-sp4): 53.6 % EF(sp4-el): 56.3 % SV(MOD-sp4): 35.6 ml SV(MOD-sp2): 39.0 ml LVAd ap2: 25.3 cm2 LVLd ap2: 8.4 cm SI(MOD-sp4): 17.2 ml/m2 SI(MOD-sp2): 18.8 ml/m2 EDV(MOD-sp2): 65.6 ml EDV(sp2-el): 64.8 ml LVAs ap2: 14.1 cm2 LVLs ap2: 6.9 cm ESV(MOD-sp2): 26.6 ml ESV(sp2-el): 24.5 ml EF(MOD-sp2): 59.4 % SV(sp4-el): 37.7 ml Ao sinus diam: 3.[address] Junction: 3.2 cm LA A4 area: 13.2 cm2 LA dimension(2D): 3.2 cm RA A4 area: 13.0 cm2 TAPSE: 2.8 cm Time Measurements MV dec time: 0.26 sec Doppler Measurements & Calculations MV E max parveen: 44.9 cm/sec Lat Peak E' Parveen: 10.0 cm/sec Med Peak E' Parveen: 8.4 cm/sec MV A max parveen: 62.0 cm/sec E/E' lat: 4.5 E/E' med: 5.4 MV E/A: 0.72 Ao V2 max: 120.8 cm/sec AI max parveen: 471.0 cm/sec MV dec slope: 171.8 cm/sec2 Ao max P.8 mmHg AI max P.7 mmHg Ao V2 mean: 79.9 cm/sec Ao mean P.0 mmHg AI dec slope: 169.6 cm/sec2 Ao V2 VTI: 27.6 cm AI P1/2t: 813.6 msec AV (velocity ratio): 0.68 SYEDA(I,D): 2.5 cm2 SYEDA(V,D): 2.6 cm2 LV V1 max: 84.2 cm/sec SV(LVOT): 70.1 ml PA V2 max: 71.7 cm/sec LV V1 max P.8 mmHg LV V1 mean P.3 mmHg LV V1 mean: 53.2 cm/sec LV V1 VTI: 18.7 cm PI end-d parveen: 93.8 cm/sec ECHO/Echo Complete Interpretation Summary Normal LV size. Left ventricular systolic function is normal. The left ventricular ejection fraction is 55 %. Mild concentric left ventricular hypertrophy. Stage 1 diastolic dysfunction. Mild (1+) eccentric aortic valve insufficiency. The global longitudinal strain is normal. The global longitudinal strain = -16. 5 % (normal). Ordering Physician: Bryce Seo Referring Physician: Bryce Seo MD Performed By: Radha Leonardo RDCS
--- OUTSIDE RECORDS SUMMARY | 2025-04-16 06:48 | XMS RPT_ITS | CCD ---
Author Organization [facility] Care Team Providers Care Wireline Field Operator Name Role Phone Melia MCKINNEY, Dean Montano Unavailable Alexi RN, Jey Unavailable Lambert Gomez MD Primary Care Provider Flor GLASS SILVERER.Tosha SHEPHERD Unavailable PEDRITO PITTS Admitting Unavailable PEDRITO PITTS Attending Unavailable LAMBERT GOMEZ Primary Care Unavailab Dean Caba MD Unavailable Alexi RN, Jey Unavailable Lambert Gomez MD Primary Care Provider Flor GLASS SILVERER.Tosha SHEPHERD Unavailable Dean Cárdenas MD Unavailable Alexi RN, Jey Unavailable Lambert Gomez MD Primary Care Provider Flor GLASS SILVERER.Tosha SHEPHERD Unavailable Alexi LAUREANO, Jey Unavailable Isabella LAUREANO, Zenaida Unavailable Unavailable Lambert Gomez MD Primary Care Provider PROVIDER, UNKNOWN Referring Unavailable LAMBERT GOMEZ Primary Care Unavailab sita Podlogar GLASS SILVERER.Cleopatra SHEPHERD Unavailable Dr. Rome Gomez MD Primary Care Provider Dr. Tania Ortiz DO Attending Provider Knoble GLASS SILVERER.LINEN ROOM SUPERVISOR, Ariadna Unavailable LAMBERT GOMEZ Primary Care Unavailab le GANGEL JR, TAMI GENE Referring Unavaila ble BURSKATIE, TADER B Primary Care Unavailab le GANGEL JR, TAMI GENE Referring Unavaila ble [facility] Primary Care Unavailab le GANGEL JR, TAMI GENE Attending Unavaila ble GANGEL JR, TAMI GENE Referring Unavaila ble [facility], [facility] Primary Care Unavailab le GANGEL JR, TAMI GENE Referring [facility]availa ble [facility] Care Unavailab le GANGEL JR, TAMI GENE Referring Unavaila ble [facility] Primary Care Unavailab le GANGEL JR, TAMI GENE Referring Unavaila ble GANGEL JR, TAMI GENE Attending Unavaila ble JASON, TADER B Primary Care Unavailab le GANGEL JR, TAMI GENE Referring Unavaila ble GANGEL JR, TAMI GENE Attending Unavaila ble BURSKATIE, TADER B Primary Care Unavailab le GANGEL JR, TAMI GENE Admitting Unavaila ble GANGEL JR, TAMI GENE Attending Unavaila ble [place], [place] B Primary Care Unavailab sita Pitts MD, Dr. Pedrito Mckeon Attending Provider Delphine MCKINNEY, Dr. Pedrito Mckeon Referring Provider Jason MCKINNEY, Dr. Peter Primary Care Provider Jason MCKINNEY, Dr. Peter Referring Provider [phone] Dr. Tami Seo MD Attending Provider Jeri GLASS SILVERER.LINEN ROOM SUPERVISOR, Ariadna Unavailable JASON MCKINNEY, LAMBERT Primary Care Physician [phone] JASON MCKINNEY, LAMBERT Primary Care UnavailPEDRITO Robertson MD Attending Unavailable PEDRITO PITTS MD Admitting Unavailable LAMBERT GOMEZ MD Primary Care UnavailPEDRITO Robertson MD Attending Unavailable Rome Gomez Primary Care Unavailable Tania Ortiz Attending Unavailable Rome Gomez Primary Care Unavailable Pedrito Pitts Attending Unavailable Pedrito Pitts Referring Unavailable Tami Seo Referring Unavailable Rome Gomez Primary Care Unavailable Tami Seo Attending Unavailable Rome Gomez Primary Care Unavailable Rome Gomez Referring Unavailable Tami Seo Attending Unavailable PODCLEOPATRA MARIO Referring LAMBERT Hidalgo Primary Care Unavailab LAMBERT Haq Primary Care Unavailab REJI Hargrove Attending Unavailable LAMBERT GOMEZ Primary Care Unavailab le POOL SIGALA, TAMI PEREZ Referring Unavaila ble LAMBERT GOMEZ Primary Care Unavailab sita ANNE JR, TAMI GENE Referring Unavaila ble LAMBERT GOMEZ Primary Care Unavailab le POOL SIGALA, TAMI GENE Referring Unavaila ble SHEELA VERA Attending Unavailable RACHAEL ENGLISH Referring Unavailabl e LAMBERT GOMEZ Primary Care Unavailab LAMBERT Haq Primary Care Unavailab LAMBERT Haq Attending LAMBERT Larsen Referring Unavailab LAMBERT Haq Primary Care Unavailab le PODLOGCLEOPATRA UMAÑA Attending Unavailable LAMBERT GOMEZ Primary Care Unavailab le Medications Current Medications Medication Drug Class(es) Dates Sig (Normalized) Sig (Original) amLODIPine 10 mg oral tablet (20 sources) Dihydropyridine Calcium Channel Lisette Start: 07-24-2022 End: 07-22-2025 take 1 tablet by mouth once daily amLODIPine (NORVASC) 10 mg tablet Indications: Primary hypertension Take 1 tablet by mouth once daily. 90 tablet 1 01/23/2025 07/22/2025 Active Start: 07-30-2021 End: 07-19-2022 take 1 tablet by mouth once daily amLODIPine (NORVASC) 10 mg tablet Indications: S/P allogeneic bone marrow transplant (HCC) , Immunodeficiency (HCC) Take 1 tablet by mouth once daily. 90 tablet 1 01/20/2022 07/19/2022 Active Start: 01-27-2016 End: 06-04-2023 take 1 tablet by mouth once daily Amlodipine 2.5 MG tablet Discontinued 2.5 mg PO DAILY January 27, 2016 12:00am June 04, 2023 7:43am Comment on above: Take 1 tablet by bishnu th once daily. cholecalciferol 0.05 mg chewable tablet (20 sources) Vitamin D Start: 06-04-20 take 1 tablet by mouth once daily Cholecalciferol (Vitamin D3) 50 mcg (2,000 unit) tablet,chewable Active 50 ug PO DAILY June 04, 2023 12:00am Start: 11-25-2018 take 1 capsule by [facility] twice daily Cholecalciferol, Vitamin D3, (VITAMIN D) 1,000 unit cap Take 1 capsule by mouth twice daily. 11/25/2018 Active Comment on above: Take 1 capsule by [facility] twice daily. clopidogrel 75 mg oral tablet (20 sources) P2Y12 Platelet Inhibitor Start: 01-22-20 take 1 tablet by mouth once daily clopidogrel (PLAVIX) 75 mg tablet Take 75 mg by mouth once daily. 05/10/2020 Active Comment on above: Take 75 mg by mouth once daily. fenofibrate 145 mg oral tablet (20 sources) Peroxisome Proliferator Receptor alpha Agonist Start: 07-24-20 End: 07-22-20 take 1 tablet by mouth once daily fenofibrate nanocrystallized (TRICOR) 145 mg tablet Indications: Mixed hyperlipidemia Take 1 tablet by mouth once daily. 90 tablet 1 01/23/2025 07/22/2025 Active Start: 07-31-2021 End: 07-19-2022 take 1 tablet by mouth once daily fenofibrate nanocrystallized (TRICOR) 145 mg tablet Indications: Mixed hyperlipidemia Take 1 tablet by mouth once daily. 90 tablet 1 01/20/2022 07/19/2022 Active Comment on above: Take 1 tablet by [facility] once daily. ferrous sulfate 325 mg oral tablet (4 sources) Start: 07-27-2023 End: 10-27-2023 take 1 tablet by mouth once daily ferrous sulfate 325 mg (65 mg iron) tablet Indications: Normocytic anemia due to blood loss Take 1 tablet by mouth once daily. 30 tablet 2 07/29/2023 10/27/2023 Active Comment on above: Take 1 tablet by bishnu once daily. finasteride 5 mg oral tablet (20 sources) 5-alpha Reductase Inhibitor Start: 07-24-2022 End: 01-23-2025 take 1 tablet by mouth once daily finasteride (PROSCAR) 5 mg tablet Indications: Benign prostatic hyperplasia without lower urinary tract symptoms Take 1 tablet by mouth once daily. 90 tablet 1 01/23/2025 Active Start: 07-30-2021 End: 01-20-2022 take 1 tablet by mouth once daily finasteride (PROSCAR) 5 mg tablet Take 1 tablet by mouth once daily. 90 tablet 1 01/20/2022 Active Comment on above: Take 1 tablet by bishnu th once daily. lisinopril 20 mg oral tablet (20 sources) Angiotensin Converting Enzyme Inhibitor Start: 03-29-2025 lisinopril 20 mg oral tablet Dose : 10 mg = 0.5 tab(s), Oral, qDay, 0 Refill(s) Start Date: 03/29/25 Status: Ordered Repeat number: 1 Start: 03-05-2025 take 10 mg by mouth once daily Lisinopril 20 mg tablet Active 10 mg PO DAILY March 05, 2025 2:09pm Start: 02-08-2024 End: 07-22-2025 take 0.5 tablet by mouth once daily lisinopril (ZESTRIL) 20 mg tablet Indications: Primary hypertension Take 0.5 tablets by mouth once daily. 45 tablet 1 01/23/2025 07/22/2025 Active Start: 07-24-2022 End: 03-05-2025 take 1 tablet by mouth once daily Lisinopril 20 mg tablet Discontinued 20 mg PO DAILY June 04, 2023 12:00am March 05, 2025 2:10pm Comment on above: Take 1 tablet by bishnu th once daily. metFORMIN hydrochloride 500 mg oral tablet (20 sources) Biguanide Start: End: take 1 tablet by mouth twice daily at mealtime metFORMIN (GLUCOPHAGE) 500 mg tablet Indications: Prediabetes Take 1 tablet by mouth two times a day with meals. 180 tablet 1 01/23/2025 07/22/2025 Active Start: 07-31-2021 End: 07-19-2022 take 1 tablet by mouth twice daily at mealtime metFORMIN (GLUCOPHAGE) 500 mg tablet Indications: Prediabetes Take 1 tablet by mouth twice daily with meals. 180 tablet 1 01/20/2022 07/19/2022 Active Comment on above: Take 1 tablet by bishnu th twice daily with meals. Take 1 tablet by bishnu th two times a day with meals. Multivitamin capsule (20 sources) take 1 capsule by mouth once daily Multivitamin capsule Take 1 capsule by mouth once daily. Active take 1 capsule by mouth once alejandra ly Multivitamin capsule Take 1 capsule by mouth once daily. 0 Active Comment on above: Take 1 capsule by mo ut once daily. Multivitamin preparation (4 sources) Start: 03-29-2025 take 1 tablet by mouth once daily Multivitamin Dose = 1 tab(s), Oral, Daily, 0 Refill(s) Start Date: 03/29/25 Status: Ordered Repeat number: 1 Start: 06-04-2023 take 1 tablet by bishnu th once daily Multivitamin Active 1 TABLET PO DAILY June 04, 2023 12:00am Start: 06-04-2023 take 1 tablet by bishnu th once daily Multivitamin Active 1 TABLET PO DAILY June 03, 2023 11:00pm Multivitamin tablet (3 sources) Start: 06-04-2023 Multivitamin t ablet Active 1 {tbl} PO DAILY June 04, 2023 12:00am rosuvastatin calcium 10 mg oral tablet (20 sources) HMG-CoA Reductase Inhibitor Start: 07-24-2022 End: 01-23-2025 take 1 tablet by mouth once daily rosuvastatin (CRESTOR) 10 mg tablet Indications: Mixed hyperlipidemia Take 1 tablet by mouth once daily. 90 tablet 1 01/23/2025 Active Start: 09-27-2020 End: 01-20-2022 take 1 tablet by mouth once daily rosuvastatin (CRESTOR) 10 mg tablet Take 1 tablet by mouth once daily. 90 tablet 1 01/20/2022 Active Comment on above: Take 1 tablet by bishnu once daily. TAKE 1 TABLET BY BISHNU TH EVERYDAY AT BEDTIME sulfamethoxazole 800 mg / trimethoprim 160 mg oral tablet (1 source) Dihydrofolate Reductase Inhibitor Antibacterial, Sulfonamide Antimicrobial Start: 2 End: 2 take 1 tablet by mouth twice daily sulfamethoxazol e-trimethoprim (BACTRIM DS) 800-160 mg per tablet Take 1 tablet by mouth twice daily for 3 days. 6 tablet 0 02/13/2022 02/16/2022 Active Comment on above: Take 1 tablet by bishnu th twice daily for 3 days. Vitamin D3 50 mcg (2000 intl units) oral capsule (1 source) Start: 5 Vitamin D3 50 mcg (2000 intl units) oral capsule Dose : 50 mcg = 1 cap(s), Oral, Daily, 0 Refill(s) Start Date: 03/29/25 Status: Ordered Repeat number: 1 Completed/Discontinued Medications Medication Drug Class(es) Dates Sig (Normalized) Sig (Original) acetaminophen 325 mg / HYDROcodone bitartrate 5 mg oral tablet (8 sources) Opioid Agonist Start: 01-22-2020 End: 01-25-2020 Hydrocodone-Acetami nophen 1 TABLET tablet Discontinued 1 {tbl} PO EVERY 6 HOURS NEEDED as needed for Pain 10 3 January 22, 2020 January 24, 2020 12:00am January 25, 2020 12:02am Peripheral arterial disease Peripheral vascular disease, unspecified Start: 01-22-2020 End: 01-25-2020 take 1 tablet by mouth every six hours as needed Hydrocodone-Acetaminophen Discontinued 1 TABLET PO EVERY 6 HOURS NEEDED 10 3 January 22, 2020 January 25, 2020 12:02am Atenolol (20 sources) beta-Adrenergic Lisette Start: 03-31-2025 End: 03-31-2025 take 1 tablet by mouth in the morning atenolol Start: 03/31/25 9:00:00 AM EDT, Dose = 100 mg, = 2 tab(s), Oral, 03/29/25 11:20:00 EDT Start Date: 03/31/25 Stop Date: 03/31/25 Status: Completed Repeat number: 1 Start: 03-30-2025 End: 03-30-2025 take 1 tablet by mouth in the morning atenolol Start: 03/30/25 9:00:00 AM EDT, Dose = 100 mg, = 2 tab(s), Oral, 03/29/25 11:20:00 EDT Start Date: 03/30/25 Stop Date: 03/30/25 Status: Completed Repeat number: 1 Start: 01-27-2016 End: 01-23-2025 take 1 tablet by mouth once daily atenolol (TENORMIN) 100 mg tablet Indications: Primary hypertension Take 1 tablet by mouth once daily. 90 tablet 1 01/23/2025 Active Comment on above: Take 1 tablet by bishnu th once daily. bcg (ELÍAS BCG) 50 mg in NaCl (PF) 0.9% 50 mL (3 sources) Start: 04-12-2025 End: 04-12-2025 50 mg, INTRAVESICAL, ONCE, 1 dose, On Juliette 04/12/25 at 0900, Instill into bladder via catheter and retain for 120 minutes, followed by bladder drainage. PROTECT FROM LIGHT Hazardous Chemotherapy Drug: Use appropriate PPE. Protect from Light. Start: 04-05-2025 End: 04-05-2025 50 mg, INTRAVESICAL, ONCE, 1 dose, On Juliette 04/05/25 at 0930, Instill into bladder via catheter and retain for 120 minutes, followed by bladder drainage. PROTECT FROM LIGHT Hazardous Chemotherapy Drug: Use appropriate PPE. Protect from Light. Start: 03-22-2025 End: 03-22-2025 50 mg, INTRAVESICAL, ONCE, 1 dose, On Juliette 03/22/25 at 0930, Instill into bladder via catheter and retain for 120 minutes, followed by bladder drainage. PROTECT FROM LIGHT Hazardous Chemotherapy Drug: Use appropriate PPE. Protect from Light. bcg 50 mg in NaCl (PF) 0.9% 50 mL (6 sources) Start: 08-31-2024 End: 08-31-2024 bcg 50 mg in NaCl (PF) 0.9% 50 mL Start: 08-31-2024 End: 08-31-2024 50 mg, INTRAVESICAL, ONCE, 1 dose, On Juliette 08/31/24 at 0830, Instill into bladder via catheter and retain for 120 minutes, followed by bladder drainage Hazardous Chemotherapy Drug: Use appropriate PPE. Protect from Light., AMB MED ORDERS Start: 08-24-2024 End: 08-24-2024 bcg 50 mg in NaCl (PF) 0.9% 50 mL Start: 08-24-2024 End: 08-24-2024 50 mg, INTRAVESICAL, ONCE, 1 dose, On Juliette 08/24/24 at 0830, Instill into bladder via catheter and retain for 120 minutes, followed by bladder drainage Hazardous Chemotherapy Drug: Use appropriate PPE. Protect from Light., AMB MED ORDERS Start: 08-17-2024 End: 08-17-2024 bcg 50 mg in NaCl (PF) 0.9% 50 mL Start: 08-17-2024 End: 08-17-2024 50 mg, INTRAVESICAL, ONCE, 1 dose, On Juliette 08/17/24 at 0830, Instill into bladder via catheter and retain for 120 minutes, followed by bladder drainage Hazardous Chemotherapy Drug: Use appropriate PPE. Protect from Light., AMB MED ORDERS bcg 50 mg in NaCl 0.9% 50 mL (6 sources) Start: 01-26-2024 End: 01-26-2024 bcg 50 mg in NaCl 0.9% 50 mL Start: 01-19-2024 End: 01-19-2024 bcg 50 mg in NaCl 0.9% 50 mL Start: 01-12-2024 End: 01-12-2024 bcg 50 mg in NaCl 0.9% 50 mL 12 hr buPROPion hydrochloride 150 mg extended release oral tablet (6 sources) Aminoketone Start: 01-27-2021 take 1 tablet by mouth twice daily buPROPion SR (WELLBUTRIN SR) 150 mg 12 hr tablet Indications: Tobacco use Take 1 tablet by mouth twice daily. 60 tablet 2 01/27/2021 Active Comment on above: Take 1 tablet by [facility] twice daily. ciprofloxacin 500 mg oral tablet (12 sources) Quinolone Antimicrobial Start: 11-23-2024 End: 11-23-2024 ciprofloxacin HCl 500 mg tab(s) (CIPRO) Start: 11-23-2024 End: 11-23-2024 take 1 dose by mouth once at mealtime 500 mg, ORAL, ONCE, 1 dose, On Juliette 11/23/24 at 0930, Administer 2 hours before or 4 hours after medications containing calcium, magnesium, aluminum, iron, or zinc (including antacids and sucralfate), and sevelamer. May be administered without regard to meals. Tube feedings should be held 1 hour before and 1 hour after administration., Antimicrobial indication: Prophylaxis Start: 05-25-2024 End: 05-25-2024 ciprofloxacin HCl 500 mg tab (s) (CIPRO) Start: 05-25-2024 End: 05-25-2024 take 1 dose by mouth once at mealtime 500 mg, ORAL, ONCE, 1 dose, On Juliette 05/25/24 at 0900, Administer 2 hours before or 4 hours after medications containing calcium, magnesium, aluminum, iron, or zinc (including antacids and sucralfate), and sevelamer. May be administered without regard to meals. Tube feedings should be held 1 hour before and 1 hour after administration., Antimicrobial indication: Prophylaxis Start: 11-04-2023 End: 11-04-2023 ciprofloxacin HCl 500 mg tab (s) (CIPRO) Start: 07-07-2023 End: 07-07-2023 ciprofloxacin HCl 500 mg tab (s) (CIPRO) Start: 06-04-2023 End: 06-11-2023 take 1 tablet by mouth every twelve hours Ciprofloxacin Hcl 500 mg tablet Discontinued 500 mg PO Q12H 14 7 0 June 04, 2023 12:00am June 10, 2023 12:00am June 11, 2023 12:05am DOCEtaxel 37.5 mg in NaCl 0. 9% 50 mL (TAXOTERE) (3 sources) Start: 10-29-2023 End: 10-29-2023 DOCEtaxel 37.5 mg in NaCl 0. 9% 50 mL (TAXOTERE) Start: 10-22-2023 End: 10-22-2023 DOCEtaxel 37.5 mg in NaCl 0. 9% 50 mL (TAXOTERE) Start: 10-15-2023 End: 10-15-2023 DOCEtaxel 37.5 mg in NaCl 0. 9% 50 mL (TAXOTERE) 26.3 ml gemcitabine 38 mg/ml injection (3 sources) Nucleoside Metabolic Inhibitor Start: 10-29-2023 End: 10-29-2023 gemcitabine 1,000 mg intravesical (GEMZAR) Start: 10-22-2023 End: 10-22-2023 gemcitabine 1,000 mg intrave sical (GEMZAR) Start: 10-15-2023 End: 10-15-2023 gemcitabine 1,000 mg intrave sical (GEMZAR) iv contrast (will be provide d with radiology test) (20 sources) Start: 06-18-2023 End: 01-26-2025 iv contrast (will be provide d with radiology test) CT Urogram WO/W Inject, intravenously, once for 1 dose.No IV access, insert saline lock prior to the beginning of sedation, infusion, injection of imaging exam. Discontinue saline lock post exam. If Pt. has a central line or IVAD, may access for administration according to line specific nursing protocol. Once exam is complete flush line and de-access according to line specific nursing protocol in the CT contrast administration guidelines link. 1 Each 06/18/2023 01/26/2025 Discontinued Start: 06-18-2023 iv contrast (w ill be provided with radiology test) CT Urogram WO/W Inject, intravenously, once for 1 dose.No IV access, insert saline lock prior to the beginning of sedation, infusion, injection of imaging exam. Discontinue saline lock post exam. If Pt. has a central line or IVAD, may access for administration according to line specific nursing protocol. Once exam is complete flush line and de-access according to line specific nursing protocol in the CT contrast administration guidelines link. 1 Each 06/18/2023 Active Start: 06-18-2023 iv contrast (w ill be provided with radiology test) CT Urogram WO/W Inject, intravenously, once for 1 dose.No IV access, insert saline lock prior to the beginning of sedation, infusion, injection of imaging exam. Discontinue saline lock post exam. If Pt. has a central line or IVAD, may access for administration according to line specific nursing protocol. Once exam is complete flush line and de-access according to line specific nursing protocol in the CT contrast administration guidelines link. 1 Each 0 06/18/2023 Active Comment on above: CT Urogram WO/W Inje ct, intravenously, once for 1 dose.No IV access, insert saline lock prior to the beginning of sedation, infusion, injection of imaging exam. Discontinue saline lock post exam. If Pt. has a central line or IVAD, may access for administration according to line specific nursing protocol. Once exam is complete flush line and de-access according to line specific nursing protocol in the CT contrast administration guidelines link. lidocaine hydrochloride 0.02 mg/mg topical gel (20 sources) Antiarrhythmic, Amide Local Anesthetic Start: 04-12-2025 End: 04-12-2025 11 mL, OTHER, ONCE, 1 dose, On Juliette 04/12/25 at 0900, Intravesical administration Start: 04-05-2025 End: 04-05-2025 11 mL, OTHER, ONCE, 1 dose, On Juliette 04/05/25 at 0930, Intravesical administration Start: 11-23-2024 End: 11-23-2024 lidocaine urojet 2 % 6 mL to pical gel (GLYDO) Start: 11-23-2024 End: 11-23-2024 6 mL, URETHRAL, ONCE, 1 dose , On Juliette 11/23/24 at 0930 Start: 08-31-2024 End: 08-31-2024 11 mL, OTHER, ONCE, 1 dose, On Juliette 08/31/24 at 0830, FOR EXTERNAL USE ONLY Intravesical administration, AMB MED ORDERS Start: 08-31-2024 End: 08-31-2024 lidocaine urojet 2 % 11 mL t opical gel (GLYDO) Start: 08-24-2024 End: 08-24-2024 11 mL, OTHER, ONCE, 1 dose, On Juliette 08/24/24 at 0830, FOR EXTERNAL USE ONLY Intravesical administration, AMB MED ORDERS Start: 08-24-2024 End: 08-24-2024 lidocaine urojet 2 % 11 mL t opical gel (GLYDO) Start: 08-17-2024 End: 08-17-2024 11 mL, OTHER, ONCE, 1 dose, On Juliette 08/17/24 at 0830, FOR EXTERNAL USE ONLY Intravesical administration, AMB MED ORDERS Start: 08-17-2024 End: 08-17-2024 lidocaine urojet 2 % 11 mL t opical gel (GLYDO) Start: 05-25-2024 End: 05-25-2024 lidocaine urojet 2 % 6 mL to pical gel (GLYDO) Start: 05-25-2024 End: 05-25-2024 6 mL, URETHRAL, ONCE, 1 dose , On Juliette 05/25/24 at 0900 Start: 01-26-2024 End: 01-26-2024 lidocaine urojet 2 % 11 mL t opical gel (GLYDO) Start: 01-19-2024 End: 01-19-2024 lidocaine urojet 2 % 11 mL t opical gel (GLYDO) Start: 01-12-2024 End: 01-12-2024 lidocaine urojet 2 % 11 mL t opical gel (GLYDO) Start: 11-04-2023 End: 11-04-2023 lidocaine urojet 2 % 6 mL to pical gel (GLYDO) Start: 10-29-2023 End: 10-29-2023 lidocaine urojet 2 % 11 mL t opical gel (GLYDO) Start: 10-22-2023 End: 10-22-2023 lidocaine urojet 2 % 11 mL t opical gel (GLYDO) Start: 10-15-2023 End: 10-15-2023 lidocaine urojet 2 % 11 mL t opical gel (GLYDO) Start: 07-07-2023 End: 07-07-2023 lidocaine urojet 2 % 6 mL to pical gel (GLYDO) nicotine 4 mg oral lozenge (16 sources) Cholinergic Nicotinic Agonist Start: 07-30-2022 End: 07-26-2023 Nicotine Polacrilex 4 mg lozenge Indications: Tobacco use Place 1 Lozenge between cheek and gum as needed (smoking). 270 Lozenge 3 07/30/2022 07/26/2023 Discontinued Comment on above: Place 1 Lozenge between cheek and gum as needed (smoking). 1000 ml sodium chloride 9 mg/ml injection (1 source) Start: 06-18-2023 End: 06-18-2023 inject 1 dose intravenously once 0.9 % sodium chloride (NACL 0.9%) infusion Indications: Benign prostatic hyperplasia with lower urinary tract symptoms, symptom details unspecified , Gross hematuria Inject 150 mL/hr intravenously one time only for 1 dose. Administer at rate defined per CT contrast administration specifications. To be provided with radiology test. 1 Each 0 06/18/2023 06/18/2023 Comment on above: Inject 150 mL/hr intravenously one time only for 1 dose. Administer at rate defined per CT contrast administration specifications. To be provided with radiology test. varenicline 1 mg oral tablet (20 sources) Partial Cholinergic Nicotinic Agonist Start: 08-23-2022 End: 07-26-2023 take 1 tablet by mouth twice daily varenicline (CHANTIX) 1 mg tablet Indications: Tobacco use Take 1 tablet by mouth twice daily. 60 tablet 1 08/23/2022 07/26/2023 Discontinued Start: 07-24-2022 End: 07-26-2023 take 0.5 tablet by mouth once daily, then take 0.5 tablet by mouth twice daily, then take 1 tablet by mouth twice daily varenicline (CHANTIX) 1 mg tablet Indications: Tobacco use Take 0.5 tablets by mouth once daily for 3 days, THEN 0.5 tablets twice daily for 4 days, THEN 1 tablet twice daily for 23 days. 52 tablet 0 07/24/2022 07/26/2023 Discontinued Comment on above: Take 0.5 tablets by mouth once daily for 3 days, THEN 0.5 tablets twice daily for 4 days, THEN 1 tablet twice daily for 23 days. Take 1 tablet by bishnu th twice daily. Problems Active Problems Problem Classification Problem Date Documented Date Episodic/Chronic Acute and unspecified renal failure (2 sources) Acute injury of kidney; Translations: [Acute kidney failure, unspecified] Episodic Administrative/socia l admission (10 sources) Patient encounter status; Translations: [Tobacco abuse counseling] Episodic Aortic and peripheral arterial embolism or thrombosis (1 source) Embolism and thrombosis of arteries of the lower extremities; Translations: [Embolism and thrombosis of arteries of the lower extremities] Onset: 5 Chronic Aortic; peripheral; and visceral artery aneurysms (20 sources) Abdominal aortic aneurysm without rupture; Translations: [Abdominal aortic aneurysm (AAA) without rupture] 07-19-2023 Chronic Cancer of bladder (20 sources) Malignant tumor of urinary bladder; Translations: [Malignant neoplasm of bladder, unspecified] Onset: 3 07-30-2023 Chronic Chronic kidney disease (20 sources) Chronic kidney disease stage 3A ; Translations: [Stage 3a chronic kidney disease (HCC)] Onset: 4 04-22-2023 Chronic Chronic kidney disease (2 sources) Chronic kidney disease; Translations: [Stage 3 chronic kidney disease, unspecified whether stage 3a or 3b CKD (HCC)] Onset: 3 Complication of device; implant or graft (1 source) Stenosis of peripheral vascular stent, initial encounter; Translations: [Stenosis of peripheral vascular stent, initial encounter] Onset: 5 Episodic Coronary atherosclerosis and other heart disease (4 sources) Calcification of coronary artery; Translations: [Atherosclerotic heart disease of [place] coronary artery without angina pectoris] Onset: 5 06-23-2023 Chronic Deficiency and other anemia (2 sources) Anemia due to blood loss; Translations: [Iron deficiency anemia secondary to blood loss (chronic)] 07-27-2023 Chronic Diabetes mellitus with complications (16 sources) Chronic kidney disease due to type 2 diabetes mellitus; Translations: [Type 2 diabetes mellitus with diabetic chronic kidney disease] Onset: 5 12-26-2024 Chronic Diabetes mellitus without complication (2 sources) Type 2 diabetes mellitus; Translations: [Type 2 diabetes mellitus without complications] Onset: 5 06-23-2025 Chronic Disorders of lipid metabolism (20 sources) Mixed hyperlipidemia; Translations: [Mixed hyperlipidemia] Onset: 7 Resolved: 0 Chronic Essential hypertension (20 sources) Essential hypertension; Translations: [Essential (primary) hypertension] Onset: 7 Resolved: 0 Chronic Hyperplasia of prostate (20 sources) Benign prostatic hyperplasia; Translations: [Benign prostatic hyperplasia without lower urinary tract symptoms] Onset: 2 Chronic Immunity disorders (20 sources) Immunodeficiency disorder; Translations: [Immunodeficiency, unspecified] Onset: 8 Resolved: 9 Chronic Leukemias (20 sources) Chronic myeloid leukemia; Translations: [Chronic myeloid leukemia, BCR/ABL-positive, not having achieved remission] Onset: 7 Chronic Malaise and fatigue (20 sources) Asthenia; Translations: [Weakness] Onset: 8 Resolved: 8 08-08-2018 Episodic Neoplasms of unspecified nature or uncertain behavior (20 sources) Myeloproliferative disorder; Translations: [Chronic myeloproliferative disease] Onset: 7 Resolved: 0 07-18-2020 Episodic Nutritional deficiencies (20 sources) Vitamin D deficiency; Translations: [Vitamin D deficiency, unspecified] Onset: 4 01-24-2024 Chronic Other connective tissue disease (1 source) Pain in right leg; Translations: [Pain in right leg] Onset: 5 Episodic Other diseases of bladder and urethra (2 sources) Mass of urinary bladder; Translations: [Other specified disorders of bladder] 07-19-2023 Chronic Other lower respiratory disease (1 source) Other nonspecific abnormal finding of lung field; Translations: [Lung nodules] Onset: 5 Episodic Other nervous system disorders (1 source) Left arm peripheral neuropathy; Translations: [Unspecified mononeuropathy of left upper limb] 01-26-2025 Chronic Other nervous system disorders (1 source) Unspecified mononeuropathy of left upper limb; Translations: [Neuropathy, arm, left] Onset: 5 Chronic Other screening for suspected conditions (not mental disorders or infectious disease) (9 sources) Encounter for screening for malignant neoplasm of respiratory organs; Translations: [Electrocardiogram abnormal] Onset: 4 01-26-2025 Episodic Other skin disorders (1 source) Skin lesion; Translations: [Disorder of the skin and subcutaneous tissue, unspecified] Episodic Peripheral and visceral atherosclerosis (20 sources) Peripheral vascular disease, unspecified; Translations: [Peripheral vascular disease, unspecified] Onset: 0 07-18-2020 Chronic Residual codes; unclassified (7 sources) H/O: tissue/organ recipient; Translations: [Bone marrow transplant status] Onset: 8 Chronic Residual codes; unclassified (20 sources) History of allotransplantation of bone marrow; Translations: [Bone marrow transplant status] Onset: 8 01-10-2020 Chronic Residual codes; unclassified (1 source) Bone marrow transplant status; Translations: [S/P allogeneic bone marrow transplant (HCC)] Onset: 0 Chronic Residual codes; unclassified (2 sources) Tobacco use and exposure - finding; Translations: [Tobacco use] Episodic Residual codes; unclassified (1 source) Tobacco use; Translations: [Tobacco use] Onset: 5 Episodic Substance-related disorders (20 sources) Tobacco user; Translations: [Nicotine dependence, unspecified, uncomplicated] Onset: 3 01-22-2023 Chronic Unclassified (1 source) Abdominal aortic aneurysm (AAA) without rupture, unspecified part; Translations: [Abdominal aortic aneurysm (AAA) without rupture, unspecified part] Onset: 3 Past or Other Problems Problem Classification Problem Date Documented Da te Episodic/Chronic Bacterial infection; unspecified site (20 sources) Bacteremia caused by Gram-negative bacteria; Translations: [Bacteremia] Onset: 8 Resolved: 8 05-11-2018 Episodic Cardiac dysrhythmias (20 sources) Atrial fibrillation; Translations: [Unspecified atrial fibrillation] Onset: 8 Resolved: 8 07-19-2023 Chronic Coagulation and hemorrhagic disorders (20 sources) Thrombocytopenic disorder; Translations: [Thrombocytopenia, unspecified] Onset: 8 Resolved: 0 08-16-2020 Chronic Complication of device; implant or graft (20 sources) Graft versus host disease; Translations: [Zcgvl-smtpop-xqdl disease, unspecified] Onset: 8 Resolved: 9 11-25-2018 Chronic Diabetes mellitus without complication (20 sources) Prediabetes; Translations: [Prediabetes] Onset: 1 Episodic Diseases of white blood cells (20 sources) Leukocytosis; Translations: [Elevated white blood cell count, unspecified] Onset: 4 Resolved: 8 11-22-2017 Chronic Fluid and electrolyte disorders (20 sources) Disorder of fluid AND/OR electrolyte; Translations: [Other disorders of electrolyte and fluid balance, not elsewhere classified] Onset: 8 12-31-2017 Episodic Genitourinary symptoms and ill-defined conditions (20 sources) Charles hematuria; Translations: [Gross hematuria] Onset: 8 Resolved: 8 06-18-2023 Episodic Intestinal infection (20 sources) Clostridium difficile diarrhea; Translations: [Enterocolitis due to Clostridium difficile, not specified as recurrent] Onset: 8 Resolved: 9 12-30-2017 Episodic Nausea and vomiting (20 sources) Chemotherapy-induced nausea and vomiting; Translations: [Nausea with vomiting, unspecified] Resolved: 8 12-30-2017 Episodic Other aftercare (20 sources) History of bone marrow transplant; Translations: [Encounter for aftercare following bone marrow transplant] Onset: 9 Resolved: 0 01-10-2020 Chronic Other aftercare (20 sources) Post-discharge follow-up; Translations: [Encounter for follow-up examination after completed treatment for conditions other than malignant neoplasm] Onset: 8 Resolved: 8 05-11-2018 Episodic Other connective tissue disease (20 sources) Decreased muscle tone; Translations: [Other symptoms and signs involving the musculoskeletal system] Onset: 8 Resolved: 8 02-08-2018 Episodic Other gastrointestinal disorders (20 sources) Dysphagia; Translations: [Dysphagia, unspecified] Onset: 8 Resolved: 8 12-30-2017 Episodic Other lower respiratory disease (15 sources) Multiple nodules of lung; Translations: [Other nonspecific abnormal finding of lung field] Onset: 5 06-23-2023 Episodic Other lower respiratory disease (20 sources) Hypoxia; Translations: [Hypoxemia] Onset: 8 Resolved: 8 12-30-2017 Episodic Other nutritional; endocrine; and metabolic disorders (20 sources) Hypercalcemia; Translations: [Hypercalcemia] Onset: 4 Resolved: 8 11-22-2017 Chronic Other nutritional; endocrine; and metabolic disorders (20 sources) Hypomagnesemia; Translations: [Hypomagnesemia] Onset: 8 Resolved: 8 08-08-2018 Chronic Other upper respiratory disease (20 sources) Nasal congestion; Translations: [Nasal congestion] Onset: 8 Resolved: 8 12-30-2017 Episodic Respiratory failure; insufficiency; arrest (adult) (20 sources) Acute hypoxemic respiratory failure; Translations: [Acute respiratory failure with hypoxia] Onset: 8 Resolved: 8 12-30-2017 Episodic Screening and history of mental health and substance abuse codes (2 sources) Encounter for screening for depression; Translations: [Encounter for screening examination for other mental health and behavioral disorders] Onset: Episodic Septicemia (except in labor) (20 sources) Sepsis; Translations: [Sepsis, unspecified organism] Onset: 8 Resolved: 8 02-08-2018 Episodic Urinary tract infections (20 sources) Hemorrhagic cystitis; Translations: [Cystitis, unspecified with hematuria] Onset: 8 Resolved: 8 08-08-2018 Episodic Viral infection (20 sources) Cytomegalovirus viremia; Translations: [Cytomegaloviral disease, unspecified] Onset: 8 Resolved: 8 05-11-2018 Episodic Results Test Name Value Interpretation Reference Range Facility [facility] 04-12-2025 CNNURSE Nurse Visit (UROLMD) TRAYC GORMAN ([id number]) 1950 M Date Time Provider Department 04/12/25 9:00 AM NURSE YVONNE HIGGINS MAX During your visit today, we recorded the following information about you: Gail Shipman RN 04/12/2025 9:03 AM Signed BLADDER INSTILLATION Patient ID with two (2) identifiers verified by: Yes Allergies reviewed and updated: Yes Medication ordered for bladder instillation: BCG Current pain intensity is: 0 on a 0-10 pain scale. Have you seen any blood in the last 24 hours: No Have you had a temperature greater than 101F in the last 24 hours: No Do you have foul smelling urine or severe burning/urgency that has worsened since the last bladder instillation treatment: No No, Proceed with BCG Any concerns about safety in the home/falls: Not at risk for falls Start Date: 03-22-2025 Treatment number: 3 of 6 Retention Time Last RX: 2 hours Symptoms Post Last RX: None Catheter Used: 16 fr. coude BCG instilled at: 0850 Drained at: 1050 Residual TX: Yes 15 cc. Return to Clinic on : 1 week Patient tolerated treatment well. Patient presents for 3rd BCG treatment. Prepped with betadine and 1 vial in 50 ml of saline instilled in the bladder via #16 Coude' red Mortensen catheter without difficulty. Patient tolerated well. Patient instructed not to void for 2 hours. Printed instructions given to patient. GEORGI Santos Janelle, RN 04/12/2025 1:41 PM Signed Addended by: GAIL SHIPMAN on: 04/12/2025 01:41 PM Modules accepted: Orders Referring Provider: TAMI ANNE JR [[id number]] Allergies As of Date: 04/12/2025 (No Known Allergies) Date Reviewed: 04/12/2025 Reviewed by: Gail Shipman RN - Fully Assessed Reason for Visit: Nurse Visit [792] Primary Visit Diagnosis:Malignant neoplasm of urinary bladder, unspecified site (HCC) [C67.9] Order(s):[] lidocaine urojet 2 % 11 mL topical gel (GLYDO)Disp: Rfl: [] bcg (ELÍAS BCG) 50 mg in NaCl (PF) 0.9% 50 mLDisp: Rfl: Prescriptions as of 04/12/2025 - fenofibrate nanocrystallized (TRICOR) 145 mg tablet Take 1 tablet by mouth once daily. - amLODIPine (NORVASC) 10 mg tablet Take 1 tablet by mouth once daily. - atenolol (TENORMIN) 100 mg tablet Take 1 tablet by mouth once daily. - lisinopril (ZESTRIL) 20 mg tablet Take 0.5 tablets by mouth once daily. - metFORMIN (GLUCOPHAGE) 500 mg tablet Take 1 tablet by mouth two times a day with meals. - rosuvastatin (CRESTOR) 10 mg tablet Take 1 tablet by mouth once daily. - finasteride (PROSCAR) 5 mg tablet Take 1 tablet by mouth once daily. - clopidogrel (PLAVIX) 75 mg tablet Take 75 mg by mouth once daily. - Cholecalciferol, Vitamin D3, (VITAMIN D) 1,000 unit cap Take 1 capsule by mouth twice daily. - Multivitamin capsule Take 1 capsule by mouth once daily. Problem List As Of Date 04/12/2025 Noted Resolved Leukocytosis [D72.829] 05/16/2014 11/22/2017 Hypercalcemia [E83.52] 05/16/2014 11/22/2017 Leucocytosis [D72.829] 04/07/2017 11/22/2017 MPN (myeloproliferative neoplasm) (HCC) [D47.1] 04/28/2017 01/10/2020 Essential hypertension [I10] 04/28/2017 08/16/2020 Hypertriglyceridemia [E78.1] 04/28/2017 08/16/2020 CML (chronic myeloid leukemia) (HCC) [C92.10] 06/28/2017 Thrombocytopenia (HCC) [D69.6] 11/22/2017 08/16/2020 Immunosuppression (HCC) [D84.9] 11/22/2017 11/25/2018 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 Normal [facility] CNNURSEon 04-05-2025 CNNURSE Nurse Visit (UROLMD) SHERIFTRACY Zaina ([id number]) 1950 M Date Time Provider Department 04/05/25 8:00 AM NURSE YVONNE HERNANDEZ During your visit today, we recorded the following information about you: Gail Shipman RN 04/05/2025 9:28 AM Signed BLADDER INSTILLATION Patient ID with two (2) identifiers verified by: Yes Allergies reviewed and updated: Yes Medication ordered for bladder instillation: BCG Current pain intensity is: 0 on a 0-10 pain scale. Have you seen any blood in the last 24 hours: No Have you had a temperature greater than 101F in the last 24 hours: No Do you have foul smelling urine or severe burning/urgency that has worsened since the last bladder instillation treatment: No No, Proceed with BCG Any concerns about safety in the home/falls: Not at risk for falls Start Date: 03-22-2025 Treatment number: 2 of 6 Retention Time Last RX: 2 hours Symptoms Post Last RX: None Catheter Used: 16 fr. coude BCG instilled at: 0825 Drained at: 1025 Residual TX: Yes 75 cc. Return to Clinic on : 1 week Patient tolerated treatment well. Patient presents for 2nd BCG treatment. Prepped with betadine and 1 vial in 50 ml of saline instilled in the bladder via #16 Coude' red Mortensen catheter without difficulty. Patient tolerated well. Patient instructed not to void for 2 hours. Printed instructions given to patient. See MAR for medication sign off. Gail Shipman RN Referring Provider: TAMI ANNE JR [[id number]] Allergies As of Date: 04/05/2025 (No Known Allergies) Date Reviewed: 03/22/2025 Reviewed by: Gail Shipman RN - Fully Assessed Reason for Visit: Nurse Visit [792] Primary Visit Diagnosis:Malignant neoplasm of urinary bladder, unspecified site (HCC) [C67.9] Order(s):[] lidocaine urojet 2 % 11 mL topical gel (GLYDO)Disp: Rfl: [] bcg (ELÍAS BCG) 50 mg in NaCl (PF) 0.9% 50 mLDisp: Rfl: Prescriptions as of 04/05/2025 - fenofibrate nanocrystallized (TRICOR) 145 mg tablet Take 1 tablet by mouth once daily. - amLODIPine (NORVASC) 10 mg tablet Take 1 tablet by mouth once daily. - atenolol (TENORMIN) 100 mg tablet Take 1 tablet by mouth once daily. - lisinopril (ZESTRIL) 20 mg tablet Take 0.5 tablets by mouth once daily. - metFORMIN (GLUCOPHAGE) 500 mg tablet Take 1 tablet by mouth two times a day with meals. - rosuvastatin (CRESTOR) 10 mg tablet Take 1 tablet by mouth once daily. - finasteride (PROSCAR) 5 mg tablet Take 1 tablet by mouth once daily. - clopidogrel (PLAVIX) 75 mg tablet Take 75 mg by mouth once daily. - Cholecalciferol, Vitamin D3, (VITAMIN D) 1,000 unit cap Take 1 capsule by mouth twice daily. - Multivitamin capsule Take 1 capsule by mouth once daily. 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 Normal [facility] APTTon 03-30-2025 aPTT Coag (Bld) [Time] 31.8 s Normal 25.0-35.0 [facility] Comment on above: Result Comment: For Heparin anticoagulation therapy, the recommended therapeutic range is: 54-77 seconds (APTT Correlation with Anti-Xa therapeutic range of 0.3-0.7 units/ml). PLEASE REFERENCE THE PHARMACY PROTOCOL FOR DOSING. Performed By: #### A BOB, ADIFF, CBC, GFR, BMP #### [address] [address] FIBon 03-30-2025 Fibrinogen 351 mg/dL Normal 250-560 [facility] Comment on above: Performed By: #### A BOB, ADIFF, CBC, GFR, BMP #### [address] [address] HHon 03-30-2025 Hematocrit (Bld) [Volume fraction] 44.3 % Normal 40.0-52.0 [facility] Comment on above: Performed By: #### A BOB, ADIFF, CBC, GFR, BMP #### [place] [address] Hgb 15.2 G/dL Normal 13.0-17.5 [facility] Comment on above: Performed By: #### A BOB, ADIFF, CBC, GFR, BMP #### [place] [address] IR ARTERIOGRAM EXTREMITY LOW ER RIGHTon 03-30-2025 IR ARTERIOGRAM EXTREMITY LOWER RIGHT ORIGINAL Images acquired, not reported on this accession number. Normal [facility] LABORATORYOrdered By: SYSTEM SYSTEM on 03-30-2025 aPTT Coag (Bld) [Time] 31.8 s Normal 25.0 - 35.0 seconds [facility] SS Comment on above: Interpretive Data: F or Heparin anticoagulation therapy, the recommended therapeutic range is: 54-77 seconds (APTT Correlation with Anti-Xa therapeutic range of 0.3-0.7 units/ml). PLEASE REFERENCE THE PHARMACY PROTOCOL FOR DOSING. Fibrinogen 351 mg/dL Normal 250 - 560 mg/dL AH [facility] Hematocrit (Bld) [Volume fraction] 44.3 % Normal 40.0 - 52.0 % AH Workflow SS Hemoglobin (Bld) [Mass/Vol] 15.2 G/dL Normal 13.0 - 17.5 G/dL Workflow SS Platelets (Bld) [#/Vol] 143 103/mcL Low 150 - 450 10^3/mcL Workflow SS PT Coag (PPP) [Time] 11.8 s Normal 9.0 - 1 4.4 seconds [facility] Comment on above: Interpretive Data: E ffective 03/27/08, Protime results may be affected by some antibiotics (i.e. Ciprofloxacin, Azithromycin, Bactrim) which may potentiate the action of oral anticoagulants, with further increases in Protime/INR. PT International Ratio 1.0 ratio Invalid Interpretation Code [facility] Comment on above: Interpretive Data: [employer] a[employer] (CHEST, 1991, 102:312S-25S) recommended therapeutic range for oral anticoagulant therapy is: LOW RISK: Prophylaxis of venous thrombosis INR: 2.0-3.0 Treatment of pulmonary embolism 2.0-3.0 Prevention of systemic embolism 2.0-3.0 HIGH RISK: Mechanical prosthetic valves 2.5-3.5 PLTon 03-30-2025 Platelet 143 10 3/mcL Low 150-450 [facility] Comment on above: Performed By: #### A BOB, ADIFF, CBC, GFR, BMP #### [facility] [address] [place] [id number] PROon 03-30-2025 INR Coag (PPP) [Relative time] 1.0 {INR} Normal [facility] Comment on above: Result Comment: [employer] (CHEST, 1991, 102:312S-25S) recommended therapeutic range for oral anticoagulant therapy is: LOW RISK: Prophylaxis of venous thrombosis INR: 2.0-3.0 Treatment of pulmonary embolism 2.0-3.0 Prevention of systemic embolism 2.0-3.0 HIGH RISK: Mechanical prosthetic valves 2.5-3.5 Performed By: #### A BOB, ADIFF, CBC, GFR, BMP #### [address] [id number] PT Coag (PPP) [Time] 11.8 s Normal 9.0-14.4 [facility] Comment on above: Result Comment: Effe ctive 03/27/08, Protime results may be affected by some antibiotics (i.e. Ciprofloxacin, Azithromycin, Bactrim) which may potentiate the action of oral anticoagulants, with further increases in Protime/INR. Performed By: #### A BOB, ADIFF, CBC, GFR, BMP #### [address] [address] .Auto Diffon 03-29-2025 Basophil, Absolute 0.1 10 3/mcL Normal 0.0-0.3 [facility] Comment on above: Performed By: #### A BOB, ADIFF, CBC, GFR, BMP #### [address] [address] Basophils/100 WBC (Bld) 0.7 % Normal 0.0-2.5 [facility] Comment on above: Performed By: #### A BOB, ADIFF, CBC, GFR, BMP #### [address] [address] Eosinophil, Absolute 0.2 10 3/mcL Normal 0.0-0.7 [facility] Comment on above: Performed By: #### A BOB, ADIFF, CBC, GFR, BMP #### [address] [address] Eosinophils/100 WBC (Bld) 2.4 % Normal 0.0-6.0 [facility] Comment on above: Performed By: #### A BOB, ADIFF, CBC, GFR, BMP #### [address] [address] Lymphocyte, Absolute 1.7 10 3/mcL Normal 0.9-4.3 [facility] Comment on above: Performed By: #### A BOB, ADIFF, CBC, GFR, BMP #### [address] [address] Lymphocytes/100 WBC (Bld) 24.1 % Normal 20.0-40.0 [facility] Comment on above: Performed By: #### A BOB, ADIFF, CBC, GFR, BMP #### [address] [address] Monocyte, Absolute 0.5 10 3/mcL Normal 0.1-1.4 [facility] Comment on above: Performed By: #### A BOB, ADIFF, CBC, GFR, BMP #### [address] [address] Monocytes/100 WBC (Bld) 7.9 % Normal 2.0-13.0 [facility] Comment on above: Performed By: #### A BOB, ADIFF, CBC, GFR, BMP #### [address] [address] Neutrophils/100 WBC (Bld) 64.9 % Normal 50.0-75.0 [facility] Comment on above: Performed By: #### A BOB, ADIFF, CBC, GFR, BMP #### [address] [address] .GFRon 03-29-2025 Estimated Glomerular Filtration Rate 78 ml/min/1.73sqm Normal [facility] Comment on above: Result Comment: Stages of Chronic Kidney Disease (CKD) Stage Description eGFR(ml/min/1.73 sq.m.) CKD 1 Normal kidney function or >=90 normal kindney function with possible kidney damage (ex. Proteinuria) CKD 2 Kidney damage with mild loss 60-89 of kidney function CKD 3a Mild to moderate loss of kidney 45-59 function CKD 3b Moderate to severe loss of 30-44 of kindey function CKD 4 Severe loss of kidney function 15-29 CKD 5 Kidney failure <15 Note: (go live 2024) the eGFR calculation was updated to the 2020 CKD-EPI creatinine equation without a race factor to calculate the eGFR results. Performed By: #### A BOB, ADIFF, CBC, GFR, BMP #### [address] [address] .NEUABSon 03-29-2025 Neutrophil, Absolute 4.5 10 3/mcL Normal 2.3-8.1 [facility] Comment on above: Performed By: #### A BOB, ADIFF, CBC, GFR, BMP #### [address] [address] APTTon 03-29-2025 aPTT Coag (Bld) [Time] 30.4 s Normal 25.0-35.0 [facility] Comment on above: Result Comment: For Heparin anticoagulation therapy, the recommended therapeutic range is: 54-77 seconds (APTT Correlation with Anti-Xa therapeutic range of 0.3-0.7 units/ml). PLEASE REFERENCE THE PHARMACY PROTOCOL FOR DOSING. Performed By: #### A BOB, ADIFF, CBC, GFR, BMP #### [address] [address] aPTT Coag (Bld) [Time] 29.3 s Normal 25.0-35.0 [facility] Comment on above: Result Comment: For Heparin anticoagulation therapy, the recommended therapeutic range is: 54-77 seconds (APTT Correlation with Anti-Xa therapeutic range of 0.3-0.7 units/ml). PLEASE REFERENCE THE PHARMACY PROTOCOL FOR DOSING. Performed By: #### A BOB, ADIFF, CBC, GFR, BMP #### [address] [address] aPTT Coag (Bld) [Time] 73.4 s High 25.0-35.0 [facility] Comment on above: Result Comment: For Heparin anticoagulation therapy, the recommended therapeutic range is: 54-77 seconds (APTT Correlation with Anti-Xa therapeutic range of 0.3-0.7 units/ml). PLEASE REFERENCE THE PHARMACY PROTOCOL FOR DOSING. Performed By: #### F IB, PRO, APTT, PLT #### [address] [address] [facility] 03-29-2025 BUN/Creatinine Ratio 23.8 ratio High 10.0-22.0 [facility] Comment on above: Performed By: #### A BOB, ADIFF, CBC, GFR, BMP #### [address] [address] Calcium [Mass/Vol] 10.2 mg/dL Normal 8.7-10.[address] [facility] Comment on above: Performed By: #### A BOB, ADIFF, CBC, GFR, BMP #### [address] [address] Chloride [Moles/Vol] 109 mmol/L Normal 98-110 [facility] Comment on above: Performed By: #### A BOB, ADIFF, CBC, GFR, BMP #### [address] [address] CO2 [Moles/Vol] 25 mmol/L Normal 22-32 [facility] Comment on above: Performed By: #### A BOB, ADIFF, CBC, GFR, BMP #### [address] [address] Creatinine [Mass/Vol] 1.01 mg/dL Normal 0.60-1.40 [facility] Comment on above: Result Comment: Test ing performed on Penboost analyzer using enzymatic creatinine methodology. Performed By: #### A BOB, ADIFF, CBC, GFR, BMP #### [address] [address] Electrolyte Balance 12.0 mEq/L Normal 4.0-15.0 [facility] Comment on above: Performed By: #### A BOB, ADIFF, CBC, GFR, BMP #### [address] [address] Glucose [Mass/Vol] 131 mg/dL High 82-[address] [facility] Comment on above: Performed By: #### A BOB, ADIFF, CBC, GFR, BMP #### [address] [address] Potassium [Moles/Vol] 4.0 mmol/L Normal 3.5-5.0 [facility] Comment on above: Performed By: #### A BOB, ADIFF, CBC, GFR, BMP #### [address] [address] Sodium [Moles/Vol] 146 mmol/L High 136-[address] [facility] Comment on above: Performed By: #### A BOB, ADIFF, CBC, GFR, BMP #### [address] [address] Urea nitrogen [Mass/Vol] 24.0 mg/dL High 8.0-22.0 [facility] Comment on above: Performed By: #### A BOB, ADIFF, CBC, GFR, BMP #### [address] [address] [facility] 03-29-2025 Erythrocyte distribution width (RBC) [Ratio] 14.6 % Normal 11.5-15.5 [facility] Comment on above: Performed By: #### A BOB, ADIFF, CBC, GFR, BMP #### [place] [address] Hematocrit (Bld) [Volume fraction] 46.6 % Normal 40.0-52.0 [facility] Comment on above: Performed By: #### A BOB, ADIFF, CBC, GFR, BMP #### [place] [address] Hgb 15.9 G/dL Normal 13.0-17.5 [facility] Comment on above: Performed By: #### A BOB, ADIFF, CBC, GFR, BMP #### [place] [address] MCH (RBC) [Entitic mass] 30.1 pg Normal 27.0-33.0 [facility] Comment on above: Performed By: #### A BOB, ADIFF, CBC, GFR, BMP #### [place] [address] MCHC 34.1 G/dL Normal 32.0-36.0 [facility] Comment on above: Performed By: #### A BOB, ADIFF, CBC, GFR, BMP #### [place] [address] MCV (RBC) [Entitic vol] 88.1 fL Normal 81.0-100.0 [facility] Comment on above: Performed By: #### A BOB, ADIFF, CBC, GFR, BMP #### [place] [id number] Platelet 161 10 3/mcL Normal 150-450 [facility] Comment on above: Performed By: #### A BOB, ADIFF, CBC, GFR, BMP #### [place] [address] Platelet mean volume (Bld) [Entitic vol] 7.4 fL Normal 6.4-10.5 [facility] Comment on above: Performed By: #### A BOB, ADIFF, CBC, GFR, BMP #### [place] [address] RBC 5.29 10 6/mcL Normal 4.50-6.00 [facility] Comment on above: Performed By: #### A BOB, ADIFF, CBC, GFR, BMP #### [place] [address] WBC 6.9 10 3/mcL Normal 4.5-10.8 [facility] Comment on above: Performed By: #### A BOB, ADIFF, CBC, GFR, BMP #### [address] 03-29-2025 Fibrinogen 340 mg/dL Normal 250-560 [facility] Comment on above: Performed By: #### A BOB, ADIFF, CBC, GFR, BMP #### [place] [address] Fibrinogen 369 mg/dL Normal 250-560 [facility] Comment on above: Performed By: #### A BOB, ADIFF, CBC, GFR, BMP #### [place] [address] Fibrinogen 396 mg/dL Normal 250-560 [facility] Comment on above: Performed By: #### F IB, PRO, APTT, PLT #### [address] 03-29-2025 Hematocrit (Bld) [Volume fraction] 44.6 % Normal 40.0-52.0 [facility] Comment on above: Performed By: #### A BOB, ADIFF, CBC, GFR, BMP #### [place] [address] Hgb 15.1 G/dL Normal 13.0-17.5 [facility] Comment on above: Performed By: #### A BOB, ADIFF, CBC, GFR, BMP #### [place] [address] Hematocrit (Bld) [Volume fraction] 47.4 % Normal 40.0-52.0 [facility] Comment on above: Performed By: #### A BOB, ADIFF, CBC, GFR, BMP #### [place] [address] Hgb 15.7 G/dL Normal 13.0-17.5 [facility] Comment on above: Performed By: #### A BOB, ADIFF, CBC, GFR, BMP #### [address] [address] Hematocrit (Bld) [Volume fraction] 45.5 % Normal 40.0-52.0 [facility] Comment on above: Performed By: #### A BOB, ADIFF, CBC, GFR, BMP #### [address] [address] Hgb 15.7 G/dL Normal 13.0-17.5 [facility] Comment on above: Performed By: #### A BOB, ADIFF, CBC, GFR, BMP #### [address] [address] IR ARTERIOGRAM EXTREMITY LOW ER RIGHTon 03-29-2025 IR ARTERIOGRAM EXTREMITY LOWER RIGHT ORIGINAL Images acquired, not reported on this accession number. Normal [facility] LABORATORYOrdered By: SYSTEM SYSTEM on 03-29-2025 aPTT Coag (Bld) [Time] 30.4 s Normal 25.0 - 35.0 seconds [facility] Comment on above: Interpretive Data: F or Heparin anticoagulation therapy, the recommended therapeutic range is: 54-77 seconds (APTT Correlation with Anti-Xa therapeutic range of 0.3-0.7 units/ml). PLEASE REFERENCE THE PHARMACY PROTOCOL FOR DOSING. Fibrinogen 340 mg/dL Normal 250 - 560 mg/dL [facility] SS Hematocrit (Bld) [Volume fraction] 44.6 % Normal 40.0 - 52.0 % Workflow SS Hemoglobin (Bld) [Mass/Vol] 15.1 G/dL Normal 13.0 - 17.5 G/dL Workflow SS Platelets (Bld) [#/Vol] 132 103/mcL Low 150 - 450 10^3/mcL Workflow SS PT Coag (PPP) [Time] 11.9 s Normal 9.0 - 1 4.4 seconds [facility] Comment on above: Interpretive Data: E ffective 03/27/08, Protime results may be affected by some antibiotics (i.e. Ciprofloxacin, Azithromycin, Bactrim) which may potentiate the action of oral anticoagulants, with further increases in Protime/INR. PT International Ratio 1.0 ratio Invalid Interpretation Code AH [facility] SS Comment on above: Interpretive Data: [employer] a[employer] (CHEST, 1991, 102:312S-25S) recommended therapeutic range for oral anticoagulant therapy is: LOW RISK: Prophylaxis of venous thrombosis INR: 2.0-3.0 Treatment of pulmonary embolism 2.0-3.0 Prevention of systemic embolism 2.0-3.0 HIGH RISK: Mechanical prosthetic valves 2.5-3.5 aPTT Coag (Bld) [Time] 29.3 s Normal 25.0 - 35.0 seconds [facility] Comment on above: Interpretive Data: F or Heparin anticoagulation therapy, the recommended therapeutic range is: 54-77 seconds (APTT Correlation with Anti-Xa therapeutic range of 0.3-0.7 units/ml). PLEASE REFERENCE THE PHARMACY PROTOCOL FOR DOSING. Fibrinogen 369 mg/dL Normal 250 - 560 mg/dL [facility] Hematocrit (Bld) [Volume fraction] 47.4 % Normal 40.0 - 52.0 % Workflow SS Hemoglobin (Bld) [Mass/Vol] 15.7 G/dL Normal 13.0 - 17.5 G/dL Workflow SS Platelets (Bld) [#/Vol] 150 103/mcL Normal 150 - 450 10^3/mcL Workflow SS PT Coag (PPP) [Time] 11.6 s Normal 9.0 - 1 4.4 seconds [facility] Comment on above: Interpretive Data: E ffective 03/27/08, Protime results may be affected by some antibiotics (i.e. Ciprofloxacin, Azithromycin, Bactrim) which may potentiate the action of oral anticoagulants, with further increases in Protime/INR. PT International Ratio 1.0 ratio Invalid Interpretation Code [facility] Comment on above: Interpretive Data: [employer] (CHEST, 1991, 102:312S-25S) recommended therapeutic range for oral anticoagulant therapy is: LOW RISK: Prophylaxis of venous thrombosis INR: 2.0-3.0 Treatment of pulmonary embolism 2.0-3.0 Prevention of systemic embolism 2.0-3.0 HIGH RISK: Mechanical prosthetic valves 2.5-3.5 Basophils (Bld) [#/Vol] 0.1 103/mcL Normal 0.0 - 0.3 10^3/mcL Workflow SS Basophils/100 WBC (Bld) 0.7 % Normal 0.0 - 2.5 % Workflow SS Calcium [Mass/Vol] 10.2 mg/dL Normal 8.7 - 10. 4 mg/dL ADM SS Chloride [Moles/Vol] 109 mmol/L Normal 98 - 11 0 mEq/L ADM SS CO2 [Moles/Vol] 25 mmol/L Normal 22 - 32 mEq/L ADM SS Creatinine [Mass/Vol] 1.01 mg/dL Normal 0.60 - 1.40 mg/dL ADM SS Comment on above: Interpretive Data: T esting performed on Penboost analyzer using enzymatic creatinine methodology. Electrolyte Balance 12.0 mEq/L Normal 4.0 - 15 .0 mEq/L ADM SS Eosinophils (Bld) [#/Vol] 0.2 103/mcL Normal 0.0 - 0.7 10^3/mcL Workflow SS Eosinophils/100 WBC (Bld) 2.4 % Normal 0.0 - 6.0 % Workflow SS Erythrocyte distribution width (RBC) [Ratio] 14.6 % Normal 11.5 - 15.5 % Workflow SS Estimated Glomerular Filtration Rate 78 ml/min/1.73sqm Invalid Interpretation Code Chemistry S Comment on above: Interpretive Data: Stages of Chronic Kidney Disease (CKD) Stage Description eGFR(ml/min/1.73 sq.m.) CKD 1 Normal kidney function or >=90 normal kindney function with possible kidney damage (ex. Proteinuria) CKD 2 Kidney damage with mild loss 60-89 of kidney function CKD 3a Mild to moderate loss of kidney 45-59 function CKD 3b Moderate to severe loss of 30-44 of kindey function CKD 4 Severe loss of kidney function 15-29 CKD 5 Kidney failure <15 Note: (go live 2024) the eGFR calculation was updated to the 2020 CKD-EPI creatinine equation without a race factor to calculate the eGFR results. Glucose [Mass/Vol] 131 mg/dL High 82 - 115 mg/dL ADM SS Lymphocytes (Bld) [#/Vol] 1.7 103/mcL Normal 0.9 - 4.3 10^3/mcL Workflow SS Lymphocytes/100 WBC (Bld) 24.1 % Normal 20.0 - 40.0 % Workflow SS MCH (RBC) [Entitic mass] 30.1 pg Normal 27. 0 - 33.0 pg AH Workflow SS MCHC 34.1 G/dL Normal 32.0 - 36.0 G/dL AH Workflow SS MCV (RBC) [Entitic vol] 88.1 fL Normal 81.0 - 100.0 fL AH Workflow SS Monocytes (Bld) [#/Vol] 0.5 103/mcL Normal 0.1 - 1.4 10^3/mcL AH Workflow SS Monocytes/100 WBC (Bld) 7.9 % Normal 2.0 - 13.0 % AH Workflow SS Neutrophils (Bld) [#/Vol] 4.5 103/mcL Normal 2.3 - 8.1 10^3/mcL AH Workflow SS Neutrophils/100 WBC (Bld) 64.9 % Normal 50.0 - 75.0 % AH Workflow SS Platelet mean volume (Bld) [Entitic vol] 7.4 fL Normal 6.4 - 10.5 fL AH Workflow SS Potassium [Moles/Vol] 4.0 mmol/L Normal 3.5 - 5.0 mEq/L AH ADM SS RBC (Bld) [#/Vol] 5.29 106/mcL Normal 4.50 - 6.0 0 10^6/mcL AH Workflow SS Sodium [Moles/Vol] 146 mmol/L High 136 - 145 mEq/L AH ADM SS Urea nitrogen [Mass/Vol] 24.0 mg/dL High 8.0 - 22.0 mg/dL AH ADM SS Urea nitrogen/Creatinine [Mass ratio] 23.8 ratio High 10.0 - 22.0 ratio AH ADM SS WBC (Bld) [#/Vol] 6.9 103/mcL Normal 4.5 - 10.8 10^3/mcL Workflow SS LABORATORYOrdered By: Gabriela Shay on 03-29-2025 Glucose [Mass/Vol] 168 mg/dL High 82 - 115 mg/dL [facility] Work Phone: PLTon 03-29-2025 Platelet 132 10 3/mcL Low 150-450 [facility] Comment on above: Performed By: #### A BOB, ADIFF, CBC, GFR, BMP #### [facility] [address] [place] [address] Platelet 150 10 3/mcL Normal 150-450 [facility] Comment on above: Performed By: #### H H, PRO, APTT, PLT, FIB #### [facility] [address] [place] [address] Platelet 150 10 3/mcL Normal 150-450 [facility] Comment on above: Performed By: #### F IB, PRO, APTT, PLT #### [place] [address] [address] [place] [address] PROon 03-29-2025 INR Coag (PPP) [Relative time] 1.0 {INR} Normal [facility] Comment on above: Result Comment: [employer] (CHEST, 1991, 102:312S-25S) recommended therapeutic range for oral anticoagulant therapy is: LOW RISK: Prophylaxis of venous thrombosis INR: 2.0-3.0 Treatment of pulmonary embolism 2.0-3.0 Prevention of systemic embolism 2.0-3.0 HIGH RISK: Mechanical prosthetic valves 2.5-3.5 Performed By: #### A BOB, ADIFF, CBC, GFR, BMP #### [address] [address] PT Coag (PPP) [Time] 11.9 s Normal 9.0-14.4 [facility] Comment on above: Result Comment: Effe ctive 03/27/08, Protime results may be affected by some antibiotics (i.e. Ciprofloxacin, Azithromycin, Bactrim) which may potentiate the action of oral anticoagulants, with further increases in Protime/INR. Performed By: #### A BOB, ADIFF, CBC, GFR, BMP #### [address] [address] INR Coag (PPP) [Relative time] 1.0 {INR} Normal [facility] Comment on above: Result Comment: [employer] (CHEST, 1991, 102:312S-25S) recommended therapeutic range for oral anticoagulant therapy is: LOW RISK: Prophylaxis of venous thrombosis INR: 2.0-3.0 Treatment of pulmonary embolism 2.0-3.0 Prevention of systemic embolism 2.0-3.0 HIGH RISK: Mechanical prosthetic valves 2.5-3.5 Performed By: #### A BOB, ADIFF, CBC, GFR, BMP #### [address] [address] PT Coag (PPP) [Time] 11.6 s Normal 9.0-14.4 [facility] Comment on above: Result Comment: Effe ctive 03/27/08, Protime results may be affected by some antibiotics (i.e. Ciprofloxacin, Azithromycin, Bactrim) which may potentiate the action of oral anticoagulants, with further increases in Protime/INR. Performed By: #### A BOB, ADIFF, CBC, GFR, BMP #### [place] [address] [address] [place] [address] INR Coag (PPP) [Relative time] 1.0 {INR} Normal [facility] Comment on above: Result Comment: [employer] (CHEST, 1992, 102:312S-25S) recommended therapeutic range for oral anticoagulant therapy is: LOW RISK: Prophylaxis of venous thrombosis INR: 2.0-3.0 Treatment of pulmonary embolism 2.0-3.0 Prevention of systemic embolism 2.0-3.0 HIGH RISK: Mechanical prosthetic valves 2.5-3.5 Performed By: #### F IB, PRO, APTT, PLT #### [address] [address] PT Coag (PPP) [Time] 11.5 s Normal 9.0-14.4 [facility] Comment on above: Result Comment: Effe ctive 03/27/08, Protime results may be affected by some antibiotics (i.e. Ciprofloxacin, Azithromycin, Bactrim) which may potentiate the action of oral anticoagulants, with further increases in Protime/INR. Performed By: #### F IB, PRO, APTT, PLT #### [address] [address] [facility] 03-23-2025 JOAON Telephone (UROGEORGIANA) TRACY GORMAN ([id number]) 1950 Date Time Provider Department 03/23/25 TAMI ANNE JR During your visit today, we recorded the following information about you: Gail Shipman RN 03/23/2025 11:53 AM Signed Patient is scheduled for 2nd BCG on , but he has a vascular surgery scheduled that day. He was requesting to get 2nd BCG a day early on Wednesday. You good with Wednesday or should we hold a week to not have any symptoms or immunosuppression for surgery? He states it is outpatient and local numbing, not general anesthesia. Please Advise. Gail Shipman RN 03/23/2025 12:52 PM Signed Spoke with , patient doing fine but pretty tired today. Resting. Please advise on below. Gail Shipman RN 03/26/2025 9:23 AM Signed Should we hold for a week to not immunosuppress? Gail Shipman RN 03/27/2025 8:41 AM Signed Spoke with Dr. Anne and he is advising waiting a week and holding BCG this week. Spoke with patient and he will hold. Scheduled another at the end of the treatments. Patient agreeable. Closing. Allergies As of Date: 03/23/2025 (No Known Allergies) Date Reviewed: 03/22/2025 Reviewed by: Gail Shipman, GEORGI - Fully Assessed Reason for Visit: BCG Question, Vascular surgery [Other] Prescriptions as of 03/27/2025 - fenofibrate nanocrystallized (TRICOR) 145 mg tablet Take 1 tablet by mouth once daily. - amLODIPine (NORVASC) 10 mg tablet Take 1 tablet by mouth once daily. - atenolol (TENORMIN) 100 mg tablet Take 1 tablet by mouth once daily. - lisinopril (ZESTRIL) 20 mg tablet Take 0.5 tablets by mouth once daily. - metFORMIN (GLUCOPHAGE) 500 mg tablet Take 1 tablet by mouth two times a day with meals. - rosuvastatin (CRESTOR) 10 mg tablet Take 1 tablet by mouth once daily. - finasteride (PROSCAR) 5 mg tablet Take 1 tablet by mouth once daily. - clopidogrel (PLAVIX) 75 mg tablet Take 75 mg by mouth once daily. - Cholecalciferol, Vitamin D3, (VITAMIN D) 1,000 unit cap Take 1 capsule by mouth twice daily. - Multivitamin capsule Take 1 capsule by mouth once daily. 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]02/08/2018 11/25/2018 Encounter for aftercare following bone marrow t*11/17/2018 01/10/2020 PAD (peripheral artery disease) ([facility]) [I73.9] MPN (myeloproliferative neoplasm) ([facility]) [D47.1] Hyperlipidemia [E78.5] HTN (hypertension) [I10] Prediabetes [R73.03] Benign prostatic hyperplasia without lower urin*01/20/2022 Abdominal aortic aneurysm (AAA) without rupture* Chronic kidney disease (CKD), stage III (modera* Preoperative examination [Z01.818] Malignant neoplasm of urinary bladder (HCC) [C6*07/30/2023 Vitamin D insufficiency [E55.9] 01/24/2024 Atypical chronic myeloid leukemia, 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 Stage 2 chronic kidney disease [N18.2] 12/18/2023 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 Have you seen any blood in the last 24 hours: No Have you had a temperature greater than 101F in the last 24 hours: No Do you have foul smelling urine or severe burning/urgency that has worsened since the last bladder instillation treatment: No No, Proceed with BCG Any concerns about safety in the home/falls: Not at risk for falls Start Date: 03-22-2025 Treatment number: 1 of 6 Retention Time Last RX: Hold for 2 hours, first dose Symptoms Post Last RX: first dose Catheter Used: 16 fr. coude BCG instilled at: 0840 Drained at: 1040 Residual TX: Yes 100 cc. Return to Clinic on : 1 week Patient tolerated treatment well. Patient presents for 1st BCG treatment. Prepped with betadine and 1 vial in 50 ml of saline instilled in the bladder via #16 Coude' red Mortensen catheter without difficulty. Patient tolerated well. Patient instructed not to void for 2 hours. Printed instructions given to patient. Gail Shipman RN Referring Provider: TAMI ANNE JR [[id number]] Allergies As of Date: 03/22/2025 (No Known Allergies) Date Reviewed: 03/22/2025 Reviewed by: Gail Shipman RN - Fully Assessed Primary Visit Diagnosis:Screening for genitourinary condition [Z13.89] Other Visit Diagnosis:Malignant neoplasm of urinary bladder, unspecified site (HCC) [C67.9] Order(s):UA DIP, URINE (POC) [[id number]] Order #: [id number]. #:[id number] [] bcg (ELÍAS BCG) 50 mg in NaCl (PF) 0.9% 50 mLDisp: Rfl: Prescriptions as of 03/23/2025 - fenofibrate nanocrystallized (TRICOR) 145 mg tablet Take 1 tablet by mouth once daily. - amLODIPine (NORVASC) 10 mg tablet Take 1 tablet by mouth once daily. - atenolol (TENORMIN) 100 mg tablet Take 1 tablet by mouth once daily. - lisinopril (ZESTRIL) 20 mg tablet Take 0.5 tablets by mouth once daily. - metFORMIN (GLUCOPHAGE) 500 mg tablet Take 1 tablet by mouth two times a day with meals. - rosuvastatin (CRESTOR) 10 mg tablet Take 1 tablet by mouth once daily. - finasteride (PROSCAR) 5 mg tablet Take 1 tablet by mouth once daily. - clopidogrel (PLAVIX) 75 mg tablet Take 75 mg by mouth once daily. - Cholecalciferol, Vitamin D3, (VITAMIN D) 1,000 unit cap Take 1 capsule by mouth twice daily. - Multivitamin capsule Take 1 capsule by mouth once daily. 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 Normal [facility] UA DIP, URINE (POC)on 2024 BILIRUBIN UA (POCT) Negative Negative [facility] CLARITY UA (POCT) Clear [facility] COLOR UA (POCT) Yellow [facility] GLUCOSE UA (POCT) Negative Negative mg/dL [facility] Hemoglobin Ql (U) Negative Negative [facility] Interpretation and review of laboratory results Abnormal [facility] KETONE UA (POCT) Negative Negative mg/dL [facility] LEUKOCYTES UA (POCT) Negative Negative [facility] NITRITE UA (POCT) Negative Negative [facility] PH UA (POCT) 5.5 4.5 - 8.0 [facility] Protein Ql (U) >=300 Abnormal Negative mg/dL [facility] SPECIFIC GRAVITY UA (POCT) 1.025 1.005 - 1.030 [facility] UROBILINOGEN UA (POCT) 0.2 Simin l E.U./dL [facility] Location:[facility], [address] [place], [address] [facility] POINT OF CARE [facility] Cardiology Visit Reporton Cardiology Visit Report [facility] [address] [place], [place] [address] OFFICE VISIT Date of Service: 03/19/25 MR#: [id number] Acct: [id number] Name: TRACY GORMAN Rep #: [id number] : 1950 Provider: Dr. Tami marsh MD Age/Sex: 74/M Location: [facility] Status: Signed HPI HPI History of Present Illness Details: Patient 74-year-old white male that comes in today for new patient visit for an abnormal ECG and preop clearance. Patient was referred due to an EKG done January 26, 2025 which showed normal sinus rhythm at 60 bpm right bundle branch block and left anterior fascicular block with LVH. The ECG was repeated in our office today and looks almost identical the heart rate is 59 right bundle branch block left anterior fascicular block minimal voltage criteria for LVH. The patient does report that Dr. Pitts found an old EKG from 2019 that was very similar. I do not have a copy of it for comparison. The patient is diabetic his hemoglobin A1c runs around 6.3 he has a history of peripheral arterial disease in his right lower extremity has recurred with claudication and he is scheduled for an angiogram and possible intervention with Dr. Pitts March 29. He has a history of chronic kidney disease his last creatinine was in normal range in November 2024. The patient just recently quit smoking. He does have a history of atrial fibrillation in the past. He also has a history of hyperlipidemia which is mixed with both triglycerides and LDL being elevated he is on rosuvastatin 10 mg daily. Patient's blood pressure was elevated in the office today at 180/100. However January 2025 it was 106/62 in his primary care's office. Patient carries a history of CML status post bone marrow transplant 2017 at the [facility]. He is considered cured. He also had a history of bladder cancer remotely that was treated with chemotherapy. The patient reports that his quality of life is limited by his right lower extremity claudication he can only walk about 10 minutes he cuts his grass can make about 2 laps and has to stop and rest and then go again. The patient also reports that he has left arm numbness that occurs with activity. This is primarily with activity when he is using his arms and he does not notice it when he is walking although he is limited by his right lower extremity when he tries to walk. The patient describes this as a tingling numbness in his right upper arm that sometimes radiates down to his hand. This started about 2 months ago that occurred after his last bladder surgical intervention. He tolerated that without incident by his report. The patient did have an echocardiogram November 2017 which was technically limited that was the time when he was having atrial fibrillation around the time of his bone marrow transplant. The LV was normal in size and function EF 57% right ventricle was normal in size and function the valves were not well-visualized. There was no mention of atrial sizes. Patient also had an abdominal aortic ultrasound done in February 2024 which showed a 3.6 cm aorta. Currently the patient denies any PND orthopnea denies any lower extremity edema. 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: No Accompanied by: Self Is patient in pain?: No Allergies No Known Allergies Allergy (Verified 03/19/25 08:51) Medications ???Medication ???Instructions ???Recorded ???Confirmed ???Type atenolol 100 mg tablet 100 mg PO DAILY 01/27/16 03/19/25 History clopidogrel 75 mg tablet 75 mg PO DAILY #30 tabs 01/22/20 0 03/19/25 Rx amlodipine 10 mg tablet 10 mg PO DAILY 06/04/23 03/19/25 H istory cholecalciferol (vitamin D3) 50 50 mcg PO DAILY 06/04/23 03/19/25 History mcg (2,000 unit) chewable tablet fenofibrate nanocrystallized 145 145 mg PO DAILY 06/04/23 03/19/25 History mg tablet finasteride 5 mg tablet 5 mg PO DAILY 06/04/23 03/19/25 Hi story metformin 500 mg tablet 500 mg PO BID 06/04/23 03/19/25 Hi story multivitamin 1 tab PO DAILY 06/04/23 03/19/25 H istory rosuvastatin 10 mg tablet 10 mg PO DAILY 06/04/23 03/19/25 H istory lisinopril 20 mg tablet 10 mg PO DAILY 03/05/25 03/19/25 H istory Ejection fraction %: 57 Have you fallen in the past year?: No [facility] Medical History (Updated 03/19/25 @ 09:[address] Tami Seo MD) Peripheral arterial disease Bladder cancer Immunodeficiency Type 2 diabetes mellitus Chronic kidney disease (CKD) Basal cell carcinoma of skin of left ear Abdominal aortic a (more content not included)... Normal [facility] Ankle Brachial Indexon 02-22 Ankle Brachial Index [facility] [address] [place] [address] Ankle Brachial Index 02/22/25 1355 MR#: [id number] Acct: [id number] Name: TRACY GORMAN Rep #: [id number] : 1950 74 From: Pedrito Pitts MD Attending Dr: Dr. Pedrito Pitts MD Status: DE P CLI Ordering Dr: Pedrito Pitts MD Date: 02/22/25 Location: [facility] Sex: M C Admitted: Reason For Study Reason For Study: Pain Procedure A bilateral lower extremity continuous wave Doppler with analog waveform analysis and ankle brachial indexes. Left Segmental Pressures Left brachial= 139mmHg. Left posterior tibial artery = 150mmHg. Left dorsalis pedis artery = 108mmHg. Left digit = 157 mmHg. The left dorsalis pedis waveforms are biphasic. The left posterior tibial artery waveforms are triphasic. Right Segmental Pressures Right brachial= 150mmHg. Right posterior tibial artery = 63mmHg. Flow visualized on ultrasound. Unable to obtain doppler and pressure in right DP using PVR. Indices The right ankle brachial index by the posterior tibial artery is 0.42. The left ankle brachial index by the dorsalis pedis is 0.72. The left ankle brachial index by the posterior tibial artery is 1.00. The left digital-brachial index is 1.05. VL/Ankle Brachial Index Interpretation Summary The right resting ankle-brachial index appears moderately abnormal. The left resting ankle-brachial index appears normal. Ordering Physician: Pedrito Pitts Referring Physician: PEDRITO PITTS DR. Performed By: ULISES CHINCHILLA T 03/07/25 0834 Date Pedrito Pitts MD CC: Dr. Pedrito Pitts MD; Dr. Rome Gomez MD Date Dictated: 02/22/25 1355 Date Transcribed: 03/07/25 0834 Fermentation Operator: Signed Normal [facility] US Art Duplex Bilat Lower Ex ton 02-22-2025 US Art Duplex Bilat Lower Ext [facility] [address] [place] [address] US Art Duplex Bilat Lower Ext 02/22/25 1359 MR#: [id number] Acct: [id number] Name: TRACY GORMAN Rep #: [id number] : 1950 74 From: Pedrito Pitts MD Attending Dr: Dr. Pedrito Pitts MD Status: DE P CLI Ordering Dr: Pedrito Pitts MD Date: 02/22/25 Location: [facility] Sex: M C Admitted: Reason For Study Reason For Study: Atherosclerosis Right Velocities Left Velocities Ext. Iliac Artery, dist = 86.1 cm./sec. Ext Iliac Artery, mid = 119.4 cm./sec. Common Femoral Artery, mid = 84.6 cm./sec. Common Femoral Artery, mid = 92.4 cm./sec. SFA prox, prox to stenosis, 27.3 cm/sec. Supf. Femoral Artery, prox = 76 cm./sec. SFA prox, stenosis, 122.2 cm/sec. Supf. Femoral Artery, mid = 138.1 cm./sec. SFA prox, dist to stenosis, 47.1 cm/sec. Supf. Femoral Artery, dist = 83.3 cm./sec. SFA mid, 36.7 cm/sec. Profunda Femoral Artery = 81.5 cm./sec. SFA mid - Uyen prox, No Flow detected. Popliteal Artery, mid = 75.6 cm./sec. SFA distal stent, No Flow detected. Post. Tibial Artery, prox = 130.8 cm./sec. Uyen mid, 13.5 cm/sec. Post Tibial Artery, mid = 89.1 cm./sec. Popliteal Artery, prox. = 129.3 cm./sec. Post Tibial Artery, dist. = 63.4 cm./sec. Post. Tibial Artery, prox = 21.3 cm./sec. Peroneal Artery, prox = 44.6 cm./sec. Post. Tibial Artery, mid = 22.7 cm./sec. Peroneal Artery, mid = 62.2 cm./sec. Post. Tibial Artery, dist = 21.3 cm./sec. Peroneal Artery,dist. = 50.1 cm./sec. Peroneal Artery, prox = 15.6 cm./sec. Ant.Tibial Artery, prox = 24.1 cm./sec. Peroneal Artery, mid = 19.1 cm./sec. Ant Tibial Artery, mid = 11.9 cm./sec. Peroneal Artery,dist = 12 cm./sec. Ant. Tibial Artery, distal = 25.8 cm./sec. Ant. Tibial Artery, prox = 6.9 cm./sec. IGNACIO mid, No Flow detected. IGNACIO distal, Retrograde flow. DPA, 7 cm/sec. Procedure Exam performed in department. Preliminary report given to Beba. VL/US Art Duplex Bilat Lower Ext Interpretation Summary Right femoral occluded distally. Left leg normal and no stenosis. Ordering Physician: Pedrito Pitts Referring Physician: Lambert Gomez Performed By: Susanna Felix RVT 03/07/25 0834 Date Pedrito Pitts MD CC: Dr. Pedrito Pitts MD; Dr. Rome Gomez MD Date Dictated: 02/22/25 1359 Date Transcribed: 03/07/25 08 Fermentation Operator: Kit [facility] 02-01-2025 [facility] Office Visit (AKURFL) TRACY GORMAN ([id number]) 1950 M Date Time Provider Department 02/01/25 11:45 AM TAMI ANNE JR During your visit today, we recorded the following information about you: Pulse Blood pressure 61/minute 128/86 Tami Anne Jr., MD 02/01/2025 11:45 AM Signed ESTABLISHED PATIENT OFFICE VISIT HPI Tracy Gorman is a 74 year old male who presents sp bladder biopsy. Path low grade Ta. First recurrence. Initial path was high grade T1. Has done and tolerated bcg well. Doing well after surgery LAB: Creatinine Date Value Ref Range Status 01/23/2025 1.08 0.73 - 1.22 mg/dL Final PSA (ng/mL) Date Value 07/30/2021 0.8 Glucose, Urine Date Value 01/26/2022 Negative 07/30/2021 Negative mg/dL Bilirubin, Urine (no units) Date Value 01/26/2022 Negative 07/30/2021 Negative Ketones, Urine (no units) Date Value 01/26/2022 Negative 07/30/2021 Negative Specific [place], Ur (no units) Date Value 01/26/2022 1.017 07/30/2021 1.025 Hemoglobin/Blood,Ur Date Value 01/26/2022 3+ 07/30/2021 3+ pH, Urine (no units) Date Value 01/26/2022 6.0 07/30/2021 5.0 Protein, Urine (no units) Date Value 01/26/2022 2+ 07/30/2021 3+ Nitrites (no units) Date Value 01/26/2022 Negative 07/30/2021 Negative WBC, Urine Date Value 01/26/2022 0-5 /HPF 07/30/2021 0-5 /HPF MEDICATIONS: fenofibrate nanocrystallized (TRICOR) 145 mg tablet Take 1 tablet by mouth once daily. amLODIPine (NORVASC) 10 mg tablet Take 1 tablet by mouth once daily. atenolol (TENORMIN) 100 mg tablet Take 1 tablet by mouth once daily. lisinopril (ZESTRIL) 20 mg tablet Take 0.5 tablets by mouth once daily. metFORMIN (GLUCOPHAGE) 500 mg tablet Take 1 tablet by mouth two times a day with meals. rosuvastatin (CRESTOR) 10 mg tablet Take 1 tablet by mouth once daily. finasteride (PROSCAR) 5 mg tablet Take 1 tablet by mouth once daily. clopidogrel (PLAVIX) 75 mg tablet Take 75 mg by mouth once daily. Cholecalciferol, Vitamin D3, (VITAMIN D) 1,000 unit cap Take 1 capsule by mouth twice daily. Multivitamin capsule Take 1 capsule by mouth once daily. REVIEW OF SYSTEMS Review of Systems Constitutional: Negative. Respiratory: Negative. Cardiovascular: Negative. Gastrointestinal: Negative. Genitourinary: Negative. Skin: Negative. Neurological: Negative. Psychiatric/Behavior al: Negative. HISTORIES PAST MEDICAL HISTORY Diagnosis Date Abdominal aortic aneurysm (AAA) without rupture CT flank 01/21/21 Basal cell carcinoma (BCC) of skin of left ear 01/2022 Benign prostatic hyperplasia without lower urinary tract symptoms Chronic kidney disease (CKD), stage III (moderate) (HCC) Dr. Ortiz CML (chronic myeloid leukemia) (HCC) Dr. Cárdenas Hemorrhoid HTN (hypertension) Hyperlipidemia Leukocytosis Malignant neoplasm of bladder (HCC) Dr. Anne MPN (myeloproliferative neoplasm) (HCC) PAD (peripheral artery disease) Dr. Pitts Prediabetes Tobacco use disorder Vitamin D insufficiency FAMILY HISTORY Problem Relation Age of Onset Cancer Mother 80 Lung Cancer Hypertension Mother Lipids Mother Lipids Father Heart Failure Father Prostate Cancer Brother SOCIAL HISTORY Social History Tobacco Use Smoking status: Former Current packs/day: 0.00 Average packs/day: 0.5 packs/day for 48.8 years (24.4 ttl pk-yrs) Types: Cigarettes Start date: 09/1975 Quit date: 06/27/2024 Years since quittin.6 Smokeless tobacco: Never Vaping Use Vaping status: Never Used Substance Use Topics Alcohol use: No Drug use: No PHYSICAL EXAMINATION General appearance: Well appearing, alert, in no acute distress, and well-hydrated, well nourished Skin: Skin color, texture, turgor normal, no suspicious rashes or lesions Respiratory:+ effort Cardiovascular: Not examined GI: Normal abdominal exam, Abdomen soft, non-tender. No masses, organomegaly Musculoskeletal: Negative Neuro: Negative Genitourinary: not examined Impression: (C67.9) Malignant neoplasm of urinary bladder, unspecified site (HCC) (primary encounter diagnosis) Plan: Induction bcg 3 months cysto Tami Anne Jr, MD 02/01/2025 Allergies As of Date: 02/01/2025 (No Known Allergies) Date Reviewed: 02/01/2025 Reviewed by: Leona Flores MA - Fully Assessed Reason for Visit: Post-Op Visit [1236] Primary Visit Diagnosis:Malignant neoplasm of urinary bladder, unspecified site (HCC) [C67.9] Order(s):UA DIP B/O [[id number]] Order #: [id number] UA DIP, URINE (POC) [[id number]] Order #: [id number]. #:[id number] Prescriptions as of 02/01/2025 - fenofibrate nanocrystallized (TRICOR) 145 mg tablet Take 1 tablet by mouth once daily. - amLODIPine (NORVASC) 10 mg tablet Take 1 tablet by mouth once daily. - atenolol (TENORMIN) 100 mg tablet (more content not included)... Normal [facility] TRAC[facility] ([id number]) 1950 Date Time Provider Department 02/01/25 TAMI ANNE JR During your visit today, we recorded the following information about you: Tami Anne Jr., MD 02/01/2025 11:43 AM Signed 6 treatments induction BCG Start late february Allergies As of Date: 02/01/2025 (No Known Allergies) Date Reviewed: 02/01/2025 Reviewed by: Leona Flores MA - Fully Assessed Reason for Visit: Appointment [186] Prescriptions as of 02/01/2025 - fenofibrate nanocrystallized (TRICOR) 145 mg tablet Take 1 tablet by mouth once daily. - amLODIPine (NORVASC) 10 mg tablet Take 1 tablet by mouth once daily. - atenolol (TENORMIN) 100 mg tablet Take 1 tablet by mouth once daily. - lisinopril (ZESTRIL) 20 mg tablet Take 0.5 tablets by mouth once daily. - metFORMIN (GLUCOPHAGE) 500 mg tablet Take 1 tablet by mouth two times a day with meals. - rosuvastatin (CRESTOR) 10 mg tablet Take 1 tablet by mouth once daily. - finasteride (PROSCAR) 5 mg tablet Take 1 tablet by mouth once daily. - clopidogrel (PLAVIX) 75 mg tablet Take 75 mg by mouth once daily. - Cholecalciferol, Vitamin D3, (VITAMIN D) 1,000 unit cap Take 1 capsule by mouth twice daily. - Multivitamin capsule Take 1 capsule by mouth once daily. Problem List As Of Date 02/01/2025 Noted Resolved Leukocytosis [D72.829] 05/16/2014 11/22/2017 Hypercalcemia [E83.52] 05/16/2014 11/22/2017 Leucocytosis [D72.829] 04/07/2017 11/22/2017 MPN (myeloproliferative neoplasm) (HCC) [D47.1] 04/28/2017 01/10/2020 Essential hypertension [I10] 04/28/2017 08/16/2020 Hypertriglyceridemia [E78.1] 04/28/2017 08/16/2020 CML (chronic myeloid leukemia) (HCC) [C92.10] 06/28/2017 Thrombocytopenia (HCC) [D69.6] 11/22/2017 08/16/2020 Immunosuppression ([facility]) [D84.9] 11/22/2017 11/25/2018 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]02/08/2018 11/25/2018 Encounter for aftercare following bone marrow t*11/17/2018 01/10/2020 PAD (peripheral artery disease) (HCC) [I73.9] MPN (myeloproliferative neoplasm) (HCC) [D47.1] Hyperlipidemia [E78.5] HTN (hypertension) [I10] Prediabetes [R73.03] Benign prostatic hyperplasia without lower urin*01/20/2022 Abdominal aortic aneurysm (AAA) without rupture* Chronic kidney disease (CKD), stage III (modera* Preoperative examination [Z01.818] Malignant neoplasm of urinary bladder (HCC) [C6*07/30/2023 Vitamin D insufficiency [E55.9] 01/24/2024 Atypical chronic myeloid leukemia, 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 Stage 2 chronic kidney disease [N18.2] 12/18/2023 Type 2 diabetes mellitus with diabetic chronic *11/26/2024 Lung nodules [R91.8] 12/26/2024 Encounter Status:Closed by TAMI ANNE on 02/01/25 [facility]ACHNAOV[facility] 01-26-2025 [facility] Office Visit (INTMWS) TRACY GORMAN ([id number]) 1950 M Date Time Provider Department 01/26/25 2:40 PM REJI SMITH INTMWS During your visit today, we recorded the following information about you: Pulse Blood pressure Weight Height 67/minute 106/62 86 kg 1.854 m Reji Smith MD 01/26/2025 3:31 PM Signed This note was created using [employer]. Subjective Patient presents with: Numbness: L upper part of arm. Ongoing X 2 days. Comes and goes. Fatigue Tracy Gorman is a 74 year old male. Recording using liveBooks software for draft documentation of the visit was discussed with the patient/authorized route service representative; all questions welcomed and answered. Patient/authorized route service representative agreed to proceed Left Arm Paresthesia: - Onset 3 days ago, described as intermittent numbness and tingling. - Primarily localized to the upper arm, with occasional involvement of the fingers. - No associated weakness or pain; able to perform tasks such as moving mulch without difficulty. - No symptoms upon waking; symptoms develop during daily activities. - Denies headaches, dizziness, or neck pain. - Recent blood draw and IV placement in the left arm. Fatigue: - Onset 3 days ago, following recent bladder surgery for lesion removal. - Noted increased fatigue during usual yard work activities, requiring more frequent breaks. - Denies dyspnea, chest pain, or pedal edema. - No fever reported. - History of bone marrow transplant in 2018; under regular monitoring by oncologist and intake rn. DM: - Recent blood work showed elevated glucose levels and HbA1c. - Working on reducing soda intake. Review of Systems Constitutional: (-) fever, (+) fatigue Head: (-) headaches Neck: (-) neck pain Cardiovascular: (-) chest pain, (-) pedal edema Respiratory: (-) shortness of breath Musculoskeletal: (+) leg discomfort Neurological: (+) left arm numbness, (+) left arm tingling, (-) dizziness, (-) weakness ACTIVE PROBLEM LIST Cml (Chronic Myeloid Leukemia) (Hcc) S/P Allogeneic Bone Marrow Transplant (Hcc) Tobacco Use Disorder Electrolyte and Fluid Disorder Immunodeficiency (Hcc) Pad (Peripheral Artery Disease) Mpn (Myeloproliferative Neoplasm) (Hcc) Hyperlipidemia Htn (Hypertension) Prediabetes Benign Prostatic Hyperplasia Without Lower Urinary Tract Symptoms Abdominal Aortic Aneurysm (Aaa) Without Rupture Chronic Kidney Disease (Ckd), Stage Iii (Moderate) (Hcc) Preoperative Examination Malignant Neoplasm of Urinary Bladder (Hcc) Vitamin D Insufficiency Atypical Chronic Myeloid Leukemia, 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 amLODIPine (NORVASC) 10 mg tablet Take 1 tablet by mouth once daily. atenolol (TENORMIN) 100 mg tablet Take 1 tablet by mouth once daily. lisinopril (ZESTRIL) 20 mg tablet Take 0.5 tablets by mouth once daily. metFORMIN (GLUCOPHAGE) 500 mg tablet Take 1 tablet by mouth two times a day with meals. rosuvastatin (CRESTOR) 10 mg tablet Take 1 tablet by mouth once daily. finasteride (PROSCAR) 5 mg tablet Take 1 tablet by mouth once daily. iv contrast (will be provided with radiology test) CT Urogram WO/W Inject, intravenously, once for 1 dose.No IV access, insert saline lock prior to the beginning of sedation, infusion, injection of imaging exam. Discontinue saline lock post exam. If Pt. has a central line or IVAD, may access for administration according to line specific nursing protocol. Once exam is complete flush line and de-access according to line specific nursing protocol in the CT contrast administration guidelines link. clopidogrel (PLAVIX) 75 mg tablet Take 75 mg by mouth once daily. Cholecalciferol, Vitamin D3, (VITAMIN D) 1,000 unit cap Take 1 capsule by mouth twice daily. Multivitamin capsule Take 1 capsule by mouth once daily. No current facility-administere d medications for this visit. Objective BP 106/62 Pulse 67 Ht 185.4 cm (6' 1) Wt 86 kg (189 lb 9.5 oz) SpO2 98% BMI 25.01 kg/m? Physical Exam Constitutional: General: He is not in acute distress. Appearance: He is not ill-appearing or diaphoretic. HENT: Head: Normocephalic. Mouth/Throat: Mouth: Mucous membranes are moist. Eyes: Conjunctiva/sclera: (more content not included)... Normal [facility] 01-26-2025 [facility] Telephone (FAMPWS) TRACY GORMAN ([id number]) 1950 M Date Time Provider Department 01/26/25 [facility] During your visit today, we recorded the following information about you: Yusef Veloz RN 01/26/2025 10:25 AM Signed Patient reports he is having left upper arm numbness off and on for 2 days now, and feeling more fatigued. States he did not have these symptoms when he saw Cleopatra on 01/23/25. No CP, No SOB, No edema, No neck issues, No shoulder issues, No dizziness. States he feels perfectly fine. Asking pcp to place a referral for him to see a records and tape recordings engineer. States he has not seen a records and tape recordings engineer, and would like to establish with one. Advised patient if he develops CP, SOB, more numbness or tingling, dizziness to go to ER. Pt is agreeable and states he would do that. Lambert Gomez MD 01/26/2025 10:47 AM Signed Needs triaged. I would like to know when he is getting this. If it occurs with exertion, I would recommend ER now. I would recommend additional OV to evaluate. He does have several risk factors for his heart and if he is having pain in his chest with radiation to neck/jaw/arm, SOB, lightheadedness, nausea, sweating, or palpitations he needs to call 911 immediately. Otherwise, would have him rest and take OTC analgesics for pain and see us next week. Rebecca Biggs LPN 01/26/2025 1:29 PM Signed Scheduled appt with triage nurse schedule. MISSY Atwood M Robin, RN 01/26/2025 1:46 PM Signed Called pt on the triage scheduled for 1:40. reports pt got that message on his [employer] and thought Dr. Gomez wanted to see him at 1:40 and will be here any minute. Lambert Gomez MD 01/26/2025 1:55 PM Signed I do not have appointments available at this time. Can go to if he does show up. Rebecca Biggs LPN 01/26/2025 2:08 PM Signed Patient placed with Dr Smith for 240p today. Rebecca Biggs LPN Allergies As of Date: 01/26/2025 (No Known Allergies) Date Reviewed: 01/23/2025 Reviewed by: Madie Costello LPN - Fully Assessed Reason for Visit: Patient Question [1477] Prescriptions as of 01/26/2025 - fenofibrate nanocrystallized (TRICOR) 145 mg tablet Take 1 tablet by mouth once daily. - amLODIPine (NORVASC) 10 mg tablet Take 1 tablet by mouth once daily. - atenolol (TENORMIN) 100 mg tablet Take 1 tablet by mouth once daily. - lisinopril (ZESTRIL) 20 mg tablet Take 0.5 tablets by mouth once daily. - metFORMIN (GLUCOPHAGE) 500 mg tablet Take 1 tablet by mouth two times a day with meals. - rosuvastatin (CRESTOR) 10 mg tablet Take 1 tablet by mouth once daily. - finasteride (PROSCAR) 5 mg tablet Take 1 tablet by mouth once daily. - iv contrast (will be provided with radiology test) CT Urogram WO/W Inject, intravenously, once for 1 dose.No IV access, insert saline lock prior to the beginning of sedation, infusion, injection of imaging exam. Discontinue saline lock post exam. If Pt. has a central line or IVAD, may access for administration according to line specific nursing protocol. Once exam is complete flush line and de-access according to line specific nursing protocol in the CT contrast administration guidelines link. - clopidogrel (PLAVIX) 75 mg tablet Take 75 mg by mouth once daily. - Cholecalciferol, Vitamin D3, (VITAMIN D) 1,000 unit cap Take 1 capsule by mouth twice daily. - Multivitamin capsule Take 1 capsule by mouth once daily. 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 Normal [facility] AXO31ab 01-26-2025 ECG01 Ventricular Rate : 60 BPM Atrial Rate : 60 BPM P-R Interval : 160 ms QRS Duration : 140 ms Q-T Interval : 442 ms QTC Calculation(Bazett) : 442 ms Calculated P Rutledge : 32 degrees Calculated R Rutledge : -64 degrees Calculated T Rutledge : -64 degrees NORMAL SINUS RHYTHM COMPLETE RIGHT BUNDLE BRANCH BLOCK LEFT ANTERIOR FASCICULAR BLOCK BIFASCICULAR BLOCK LEFT VENTRICULAR HYPERTROPHY WITH REPOLARIZATION ABNORMALITY ( R in aVL , Romhilt-Peterson ) ABNORMAL ECG Confirmed by FANNY HUDSON MD ([id number]) on 02/16/2025 4:23:04 PM NAME : TRACY GORMAN PID : [id number] : 1950 Gender : Male Race : ORD : Procedure Date : Jan 26 2025 15:11:42 Edit Date : Feb 16 2025 16:23:08 Diagnosis: NORMAL SINUS RHYTHM COMPLETE RIGHT BUNDLE BRANCH BLOCK LEFT ANTERIOR FASCICULAR BLOCK BIFASCICULAR BLOCK LEFT VENTRICULAR HYPERTROPHY WITH REPOLARIZATION ABNORMALITY ( R in aVL , Romhilt-Peterson ) ABNORMAL ECG Confirmed by FANNY HUDSON MD ([id number]) on 02/16/2025 4:23:04 PM Test Reason : Location : 185 : [facility] Overread By : FANNY HUDSON MD Edited By : FANNY HUDSON MD Referred By : , Acquired by : eb, Normal [facility] ALBUMIN/CREATININE RATIO, UR INEon 01-23-2025 Albumin DL <= 20 mg/L (U) [Mass/Vol] 996.4 mg/L Normal [facility] Comment on above: Order Comment: Speci men Type: URINE SPECIMENOrdering Facility: [facility] Address: [address] [place] [address] Performed By: #### U ACR ####[facility] LABCLIA [id number] [place] [address] [place] Albumin/Creatinine (U) [Mass ratio] 501 mg/g High <30 [facility] Comment on above: Order Comment: Speci men Type: URINE SPECIMENOrdering Facility: [facility] Address: [address] [place] [address] Result Comment: Adul t Male and Female Nephrotic Criteria: <30 mg/g is considered normal to mildly increased 30-300 mg/g is considered moderately increased >300 mg/g is considered severely increased KDIGO. (2013). KDIGO 2012 Clinical Practice Guideline for the Evaluation and Management of Chronic Kidney Disease. Official Journal of the International Society of Nephrology, 3(1), 1-150. Performed By: #### U ACR ####[facility] LABIA [id number] [place] [address] [place] Creatinine (U) [Mass/Vol] 198.7 mg/dL Normal 20.0-300.0 [facility] Comment on above: Order Comment: Speci men Type: URINE SPECIMENOrdering Facility: [facility] Address: [address] [place] [address] Performed By: #### U ACR ####[facility] LABCLIA [id number] [place] [address] [place] CBC W Auto Differential pane l (Bld)on 01-23-2025 Basophils (Bld) [#/Vol] 0.03 10*3/uL Normal <0.11 [facility] Comment on above: Order Comment: Speci men Type: BLOOD SPECIMENOrdering Facility: [facility] Address: [address] [place] [address] Performed By: #### 5 7021-8 ####[facility] LABIA [id number] [place] [address] [place] Basophils/100 WBC (Bld) 0.4 % Normal [facility] Comment on above: Order Comment: Speci men Type: BLOOD SPECIMENOrdering Facility: [facility] Address: [address] [place] [address] Performed By: #### 5 7021-8 ####[facility] LABCLIA [id number] [place] [address] [place] Differential cell count method Nom (Bld) Auto Normal [facility] Comment on above: Order Comment: Speci men Type: BLOOD SPECIMENOrdering Facility: [facility] Address: [address] [place] [address] Performed By: #### 5 7021-8 ####[facility] LABCLIA [id number] [place] [address] [place] Eosinophils (Bld) [#/Vol] 0.15 10*3/uL Normal <0.46 [facility] Comment on above: Order Comment: Speci men Type: BLOOD SPECIMENOrdering Facility: [facility] Address: [address] [place] [address] Performed By: #### 5 7021-8 ####[facility] LABCLIA [id number] [place] [address] [place] Eosinophils/100 WBC (Bld) 1.8 % Normal [facility] Comment on above: Order Comment: Speci men Type: BLOOD SPECIMENOrdering Facility: [facility] Address: [address] [place] [address] Performed By: #### 5 7021-8 ####[facility] LABCLIA [id number] [place] [address] [place] Erythrocyte distribution width (RBC) [Ratio] 14.6 % Normal 11.5-15.0 [facility] Comment on above: Order Comment: Speci men Type: BLOOD SPECIMENOrdering Facility: [facility] Address: [address] [place] [address] Performed By: #### 5 7021-8 ####[facility] LABCLIA [id number] [place] [id number] [place] Hematocrit (Bld) [Volume fraction] 50.8 % Normal 39.0-51.0 [facility] Comment on above: Order Comment: Speci men Type: BLOOD SPECIMENOrdering Facility: [facility] Address: [address] [place] [address] Performed By: #### 5 7021-8 ####[facility] LABCLIA [id number] [place] [address] [place] Hemoglobin (Bld) [Mass/Vol] 16.1 g/dL Normal 13.0-17.0 [facility] Comment on above: Order Comment: Speci men Type: BLOOD SPECIMENOrdering Facility: [facility] Address: [address] [place] [address] Performed By: #### 5 7021-8 ####[facility] LABCLIA [id number] [place] [address] [place] Immature granulocytes (Bld) [#/Vol] 0.03 10*3/uL Normal <0.10 [facility] Comment on above: Order Comment: Speci men Type: BLOOD SPECIMENOrdering Facility: [facility] Address: [address] [place] [address] Performed By: #### 5 7021-8 ####[facility] LABCLIA [id number] [place] [address] [place] Immature granulocytes/100 WBC (Bld) 0.4 % Normal [facility] Comment on above: Order Comment: Speci men Type: BLOOD SPECIMENOrdering Facility: [facility] Address: [address] [place] [address] Performed By: #### 5 7021-8 ####[facility] LABCLIA [id number] [place] [address] [place] Lymphocytes (Bld) [#/Vol] 2.18 10*3/uL Normal 1.00-4.00 [facility] Comment on above: Order Comment: Speci men Type: BLOOD SPECIMENOrdering Facility: [facility] Address: [address] [place] [address] Performed By: #### 5 7021-8 ####[facility] LABCLIA [id number] [place] [address] [place] Lymphocytes/100 WBC (Bld) 26.7 % Normal [facility] Comment on above: Order Comment: Speci men Type: BLOOD SPECIMENOrdering Facility: [facility] Address: [address] [place] [address] Performed By: #### 5 7021-8 ####[facility] LABCLIA [id number] [place] [address] [place] MCH (RBC) [Entitic mass] 29.3 pg Normal 26.0-34.0 [facility] Comment on above: Order Comment: Speci men Type: BLOOD SPECIMENOrdering Facility: [facility] Address: [address] [place] [address] Performed By: #### 5 7021-8 ####[facility] LABIA [id number] [place] [address] [place] MCHC (RBC) [Mass/Vol] 31.7 g/dL Normal 30.5-36.0 [facility] Comment on above: Order Comment: Speci men Type: BLOOD SPECIMENOrdering Facility: [facility] Address: [address] [place] [address] Performed By: #### 5 7021-8 ####[facility] LABCLIA [id number] [place] [address] [place] MCV (RBC) [Entitic vol] 92.4 fL Normal 80.0-100.0 [facility] Comment on above: Order Comment: Speci men Type: BLOOD SPECIMENOrdering Facility: [facility] Address: [address] [place] [address] Performed By: #### 5 7021-8 ####[facility] LABCLIA [id number] [facility] [address] [place] [address] [place] Monocytes (Bld) [#/Vol] 0.67 10*3/uL Normal <0.87 [facility] Comment on above: Order Comment: Speci men Type: BLOOD SPECIMENOrdering Facility: [facility] Address: [address] [place] [address] Performed By: #### 5 7021-8 ####[facility] LABCLIA [id number] [facility] [address], [facility] [place] Monocytes/100 WBC (Bld) 8.2 % Normal [facility] Comment on above: Order Comment: Speci men Type: BLOOD SPECIMENOrdering Facility: [facility] Address: [address] [place] [address] Performed By: #### 5 7021-8 ####[facility] LABCLIA [id number] [facility] [address] [place] Neutrophils (Bld) [#/Vol] 5.11 10*3/uL Normal 1.45-7.50 [facility] Comment on above: Order Comment: Speci men Type: BLOOD SPECIMENOrdering Facility: [facility] Address: [address] [place] [address] Performed By: #### 5 7021-8 ####[facility] LABCLIA [id number] [address], [facility] [place] Neutrophils/100 WBC (Bld) 62.5 % Normal [facility] Comment on above: Order Comment: Speci men Type: BLOOD SPECIMENOrdering Facility: [facility] Address: [address] [place] [address] Performed By: #### 5 7021-8 ####[facility] LABCLIA [id number] [facility] [address], [facility] [place] Nucleated RBC (Bld) [#/Vol] 10*3/uL Normal <0.01 [facility] Comment on above: Order Comment: Speci men Type: BLOOD SPECIMENOrdering Facility: [facility] Address: [address] [place] [address] Performed By: #### 5 7021-8 ####[facility] LABIA [id number] [place] [address] [place] Nucleated RBC/100 WBC (Bld) [Ratio] 0.0 /100 WBC Normal [facility] Comment on above: Order Comment: Speci men Type: BLOOD SPECIMENOrdering Facility: [facility] Address: [address] [place] [address] Performed By: #### 5 7021-8 ####[facility] LABIA [id number] [place] [address] [place] Platelet mean volume (Bld) [Entitic vol] 10.0 fL Normal 9.0-12.7 [facility] Comment on above: Order Comment: Speci men Type: BLOOD SPECIMENOrdering Facility: [facility] Address: [address] [place] [address] Performed By: #### 5 7021-8 ####[facility] [id number] [place] [address] [place] Platelets (Bld) [#/Vol] 170 10*3/uL Normal 150-400 [facility] Comment on above: Order Comment: Speci men Type: BLOOD SPECIMENOrdering Facility: [facility] Address: [address] [place] [address] Performed By: #### 5 7021-8 ####[facility] LABIA [id number] [place] [id number] [place] RBC (Bld) [#/Vol] 5.50 10*6/uL Normal 4.20-6.00 [facility] Comment on above: Order Comment: Speci men Type: BLOOD SPECIMENOrdering Facility: [facility] Address: [address] [place] [address] Performed By: #### 5 7021-8 ####[facility] LABCLIA [id number] [place] [id number] [place] WBC (Bld) [#/Vol] 8.17 10*3/uL Normal 3.70-11.00 [facility] Comment on above: Order Comment: Speci men Type: BLOOD SPECIMENOrdering Facility: [facility] Address: [address] [place] [address] Performed By: #### 5 7021-8 ####[facility] LABCLIA [id number] [place] [id number] [place] CNOVon 01-23-2025 CNOV Office Visit (TAMARA) TRACY GORMAN ([id number]) 1950 M Date Time Provider Department 01/23/25 8:40 AM CLEOPATRA GREENWOOD During your visit today, we recorded the following information about you: Pulse Respiration Blood pressure Weight 57/minute 18/minute 131/84 85.8 kg Cleopatra Greenwood APRN.CNP 01/23/2025 9:23 AM Signed 01/22/2025 Patient presents with: F/U 6 months SUBJECTIVE: This is a 74 year old that is here today for Above Complaints. HTN: Patient is compliant with meds Yes Monitors bp at home: occasional . Denies side effects: Yes. Chest pain: No. Dyspnea: No. Edema: No. Palpitations: No. Syncope: No. Headache: No. Dizziness: No. HYPERLIPIDEMIA: Patient is taking medications: Yes. Patient is watching diet: Yes. Patient denies myalgias: Yes. Patient denies gi upset: Yes Prediabetes: taking Metformin as prescribed without side effects. Denies visual changes, polyuria or polydipsia BPH: taking Proscar as prescribed but has been out for about three months. Denies nocturia, straining to urinate, incomplete emptying, dysuria or hematuria Bladder cancer: Following with Dr. Anne with last office visit on Wednesday. Had biopsy to bladder lesion - awaiting results PAST MEDICAL HISTORY Diagnosis Date Abdominal aortic aneurysm (AAA) without rupture CT flank 01/21/21 Basal cell carcinoma (BCC) of skin of left ear 01/2022 Benign prostatic hyperplasia without lower urinary tract symptoms Chronic kidney disease (CKD), stage III (moderate) (HCC) Dr. Ortiz CML (chronic myeloid leukemia) (HCC) Dr. Cárdenas Hemorrhoid HTN (hypertension) Hyperlipidemia Leukocytosis Malignant neoplasm of bladder (HCC) Dr. Anne MPN (myeloproliferative neoplasm) (HCC) PAD (peripheral artery disease) Dr. Pitts Prediabetes Tobacco use disorder Vitamin D insufficiency ALLERGIES Patient has no known allergies. MEDICATIONS Current Outpatient Medications Medication Sig amLODIPine (NORVASC) 10 mg tablet Take 1 tablet by mouth once daily. atenolol (TENORMIN) 100 mg tablet Take 1 tablet by mouth once daily. fenofibrate nanocrystallized (TRICOR) 145 mg tablet Take 1 tablet by mouth once daily. finasteride (PROSCAR) 5 mg tablet Take 1 tablet by mouth once daily. lisinopril (ZESTRIL) 20 mg tablet Take 0.5 tablets by mouth once daily. metFORMIN (GLUCOPHAGE) 500 mg tablet Take 1 tablet by mouth two times a day with meals. rosuvastatin (CRESTOR) 10 mg tablet Take 1 tablet by mouth once daily. iv contrast (will be provided with radiology test) CT Urogram WO/W Inject, intravenously, once for 1 dose.No IV access, insert saline lock prior to the beginning of sedation, infusion, injection of imaging exam. Discontinue saline lock post exam. If Pt. has a central line or IVAD, may access for administration according to line specific nursing protocol. Once exam is complete flush line and de-access according to line specific nursing protocol in the CT contrast administration guidelines link. clopidogrel (PLAVIX) 75 mg tablet Take 75 mg by mouth once daily. Cholecalciferol, Vitamin D3, (VITAMIN D) 1,000 unit cap Take 1 capsule by mouth twice daily. Multivitamin capsule Take 1 capsule by mouth once daily. No current facility-administere d medications for this visit. Medications and allergies reviewed by this provider. SOCIAL HISTORY Social History Tobacco Use Smoking status: Former Current packs/day: 0.00 Average packs/day: 0.5 packs/day for 48.8 years (24.4 ttl pk-yrs) Types: Cigarettes Start date: 09/1975 Quit date: 06/27/2024 Years since quittin.5 Smokeless tobacco: Never Vaping Use Vaping status: Never Used Substance Use Topics Alcohol use: No Drug use: No REVIEW OF SYSTEMS All other reviewed and negative other than HPI. OBJECTIVE: BP 131/84 Pulse (!) 57 Resp 18 Wt 85.8 kg (189 lb 3.2 oz) SpO2 96% BMI 24.96 kg/m? . Vital signs reviewed by this provider. APPEARANCE Well appearing, alert, in no acute distress, well-hydrated, well nourished. EYES conjunctiva and sclera normal. HEART RRR with normal S1 and S2, no murmurs, no gallops, no JVD appreciated LUNG clear to auscultation. No wheezes, rhonchi or rales EXTREMITIES Extremities normal, No deformities, No skin discoloration, and No edema SKIN Skin color, texture, turgor normal, no suspicious rashes or lesions to exposed skin Latest Ref Rng 07/26/2024 Protein, Total 6.3 - 8.0 g/dL 7.5 Albumin 3.9 - 4.9 g/dL 4.6 Calcium 8.5 - 10.2 mg/dL 10.2 Bilirubin, Total 0.2 - 1.3 mg/dL 0.4 Alkaline Phosphatase 38 - 113 U/L 56 AST 14 - 40 U/L 23 ALT 10 - 54 U/L 12 Glucose 74 - 99 mg/dL 129 (H) BUN 9 - 24 mg/dL 25 (H) Creatinine 0.73 - 1.22 mg/dL 1.10 Sodium 136 - 144 mmol/L 142 Potassium 3.7 - 5.1 mmol/L 4.5 Chloride 98 - 107 mmol/L 106 CO2 22 - 30 mmol/L 25 Anion Gap 8 - 15 mmol/ (more content not included)... Normal [facility] metabolic 2000 panelon 01-23-2025 Albumin [Mass/Vol] 4.4 g/dL Normal 3.9-4.9 [facility] Comment on above: Order Comment: Speci men Type: BLOOD SPECIMENOrdering Facility: [facility] Address: [address] [place] [id number] Performed By: #### 2 4323-8, 26351-4 ####[facility] LABCLIA [id number] [place] [id number] [place] ALP [Catalytic activity/Vol] 51 U/L Normal 38-113 [facility] Comment on above: Order Comment: Speci men Type: BLOOD SPECIMENOrdering Facility: [facility] Address: [address] [place] [address] Performed By: #### 2 4323-8, 88688-7 ####[facility] LABCLIA [id number] [place] [address] [place] ALT [Catalytic activity/Vol] 15 U/L Normal 10-54 [facility] Comment on above: Order Comment: Speci men Type: BLOOD SPECIMENOrdering Facility: [facility] Address: [address] [place] [address] Performed By: #### 2 4323-8, 04663-7 ####[facility] LABCLIA [id number] [place] [address] [place] Anion gap [Moles/Vol] 11 mmol/L Normal 8-15 [facility] Comment on above: Order Comment: Speci men Type: BLOOD SPECIMENOrdering Facility: [facility] Address: [address] [place], [place] [id number] Performed By: #### 2 4323-8, 46883-4 ####[facility] LABCLIA [id number] [place] [id number] [place] AST [Catalytic activity/Vol] 22 U/L Normal 14-40 [facility] Comment on above: Order Comment: Speci men Type: BLOOD SPECIMENOrdering Facility: [facility] Address: [address] [place], [place] [id number] Performed By: #### 2 4323-8, 94446-4 ####[facility] LABCLIA [id number] [address] [address] [place] Bilirubin [Mass/Vol] 0.5 mg/dL Normal 0.2-1.3 [facility] Comment on above: Order Comment: Speci men Type: BLOOD SPECIMENOrdering Facility: [facility] Address: [address] [place], [place] [id number] Performed By: #### 2 4323-8, 97907-6 ####[facility] LABCLIA [id number] [place] [id number] [place] Calcium [Mass/Vol] 10.1 mg/dL Normal 8.5-10.2 [facility] Comment on above: Order Comment: Speci men Type: BLOOD SPECIMENOrdering Facility: [facility] Address: [address] [place] [address] Performed By: #### 2 4323-8, 43597-2 ####[facility] LABCLIA [id number] [place] [id number] [place] Chloride [Moles/Vol] 104 mmol/L Normal 98-107 [facility] Comment on above: Order Comment: Speci men Type: BLOOD SPECIMENOrdering Facility: [facility] Address: [address] [place] [address] Performed By: #### 2 4323-8, 20090-4 ####[facility] LABCLIA [id number] [place] [id number] [place] CO2 [Moles/Vol] 24 mmol/L Normal 22-30 [facility] Comment on above: Order Comment: Speci men Type: BLOOD SPECIMENOrdering Facility: [facility] Address: [address] [place], [place] [address] Performed By: #### 2 4323-8, 43525-3 ####[facility] LABCLIA [id number] [address] [address] [place] Creatinine [Mass/Vol] 1.08 mg/dL Normal 0.73-1.22 [facility] Comment on above: Order Comment: Norma rouse Type: BLOOD SPECIMENOrdering Facility: [facility] Address: [address] [place] [address] Performed By: #### 2 4323-8, 77811-5 ####[facility] LABCLIA [id number] [place] [address] [place] Creatinine and Glomerular filtration rate.predicted panel (S/P/Bld) 72 mL/min/1.73m??? Normal >=60 [facility] Comment on above: Order Comment: Norma rouse Type: BLOOD SPECIMENOrdering Facility: [facility] Address: [address] [place] [address] Result Comment: Madeline mated Glomerular Filtration Rate (eGFR) is calculated using the 2020 CKD-EPI creatinine equation. This equation utilizes serum creatinine, sex, and age as parameters. The creatinine assay has traceable calibration to isotope dilution-mass spectrometry. Refer to KDIGO guidelines for clinical interpretation. In patients with unstable renal function, e.g. those with acute kidney injury, the eGFR may not accurately reflect actual GFR. Performed By: #### 2 4323-8, 78830-1 ####[facility]CLIA [id number] [place] [address] [place] Glucose [Mass/Vol] 141 mg/dL High 74-99 [facility] Comment on above: Order Comment: Norma rouse Type: BLOOD SPECIMENOrdering Facility: [facility] Address: [address] [place] [address] Result Comment: The [place] Diabetes Association (ADA) provides guidance for cutoff values for fasting glucose and random glucose. The ADA defines fasting as no caloric intake for at least 8 hours. Fasting plasma glucose results between 100 to 125 mg/dL indicate increased risk for diabetes (prediabetes). Fasting plasma glucose results greater than or equal to 126 mg/dL meet the criteria for diagnosis of diabetes. In the absence of unequivocal hyperglycemia, results should be confirmed by repeat testing. In a patient with classic symptoms of hyperglycemia or hyperglycemic crisis, random plasma glucose results greater than or equal to 200 mg/dL meet the criteria for diagnosis of diabetes. Reference: Standards of Medical Care in Diabetes 2016, [place] Diabetes Association. Diabetes Care. 2016.39(Suppl 1). Performed By: #### 2 4323-8, 17964-0 ####[facility]CLIA [id number] [address] [address] [place] Potassium [Moles/Vol] 4.7 mmol/L Normal 3.7-5.1 [facility] Comment on above: Order Comment: Speci men Type: BLOOD SPECIMENOrdering Facility: [facility] Address: [address] [place] [address] Performed By: #### 2 4323-8, 84611-3 ####[facility] LABIA [id number] [address] [address] [place] Protein [Mass/Vol] 7.2 g/dL Normal 6.3-8.0 [facility] Comment on above: Order Comment: Speci men Type: BLOOD SPECIMENOrdering Facility: [facility] Address: [address] [place] [phone] Performed By: #### 2 4323-8, ####[facility] LABIA [id number] [address] [address] [place] Sodium [Moles/Vol] 139 mmol/L Normal 136-144 [facility] Comment on above: Order Comment: Speci men Type: BLOOD SPECIMENOrdering Facility: [facility] Address: [address] [place] [id number] Performed By: #### 2 4323-8, 66694-1 ####[facility] LABIA [id number] [address] [address] [place] Urea nitrogen [Mass/Vol] 24 mg/dL Normal 9-24 [facility] Comment on above: Order Comment: Speci men Type: BLOOD SPECIMENOrdering Facility: [facility] Address: [address] [place] [id number] Performed By: #### 2 4323-8, 96057-3 ####[facility] LABCLIA [id number] [address] OF [facility] HbA1c (Bld)on 01-23-2025 Average glucose Estimated from glycated hemoglobin (Bld) [Mass/Vol] 137 mg/dL Normal [facility] Comment on above: Order Comment: Norma rouse Type: BLOOD SPECIMENOrdering Facility: [facility] Address: [address] [place] [address] Result Comment: eAG: (Estimated average glucose) is a calculated value from HgbA1c and is route service representative of the average blood glucose level in the last 2-3 month period. Performed By: #### 5 5454-3 ####[facility] [id number] [address] HbA1c (Bld) [Mass fraction] 6.4 % High 4.3-5.6 [facility] Comment on above: Order Comment: Norma rouse Type: BLOOD SPECIMENOrdering Facility: [facility] Address: [address] [place] [address] Result Comment: [place] Diabetes Association guidelines indicate that patients with HgbA1c in the range 5.7-6.4% are at increased risk for development of diabetes, and intervention by lifestyle modification may be beneficial. HgbA1c greater or equal to 6.5% is considered diagnostic of diabetes. Performed By: #### 5 5454-3 ####[facility] LABIA [id number] [address] [place] Lipid 1996 panelon 5 Cholesterol [Mass/Vol] 122 mg/dL Normal <200 [facility] Comment on above: Order Comment: Norma rouse Type: BLOOD SPECIMENOrdering Facility: [facility] Address: [address] [place] [address] Result Comment: <200 mg/dL, Desirable 200-239 mg/dL, Borderline high >239 mg/dL, High Performed By: #### 2 4323-8, 12672-2 ####[facility] LABCLIA [id number] [place] [id number] [facility] [place] Cholesterol in HDL [Mass/Vol] 25 mg/dL Low >39 [facility] Comment on above: Order Comment: Speci men Type: BLOOD SPECIMENOrdering Facility: [facility] Address: [address] [place] [address] Result Comment: 40-5 9 mg/dL, Acceptable >59 mg/dL, High: Negative risk factor for coronary heart disease <40 mg/dL, Low: Positive risk factor for coronary heart disease Performed By: #### 2 4323-8, 08716-2 ####[facility]CLIA [id number] [address] Cholesterol in LDL [Mass/Vol] 50 mg/dL Normal <100 [facility] Comment on above: Order Comment: Speci men Type: BLOOD SPECIMENOrdering Facility: [facility] Address: [address] [place] [address] Result Comment: <100 mg/dL, Optimal 100-129 mg/dL, Near optimal/above optimal 130-159 mg/dL, Borderline high 160-189 mg/dL, High >189 mg/dL, Very high Secondary prevention optimal LDL Cholesterol levels are recommended to be <70 mg/dL LDL cholesterol is calculated using the [place]-NIH equation. Performed By: #### 2 4323-8, 86103-1 ####[facility]CLIA [id number] [address] OF [facility] Cholesterol in LDL/Cholesterol in HDL [Mass ratio] 2.00 {ratio} Normal <2.54 [facility] Comment on above: Order Comment: Speci men Type: BLOOD SPECIMENOrdering Facility: [facility] Address: [address] [place] [address] Result Comment: Jasvir cardenas: 1. National Cholesterol Education Program ATP III Guideline At-A-Glance Quick Desk Reference: National Heart, Lung, and Blood [place]. National Institutes of Health. 2001: NIH Publication No. 01-3305. 2. An International Atherosclerosis Society position paper: global recommendations for the management of dyslipidemia: executive summary, Atherosclerosis. 2014: 232(2):410-413. Performed By: #### 2 4323-8, 58213-4 ####[facility] LABCLIA [id number] [facility] [address] [place] [address] [place] Cholesterol in VLDL [Mass/Vol] 43 mg/dL High <30 [facility] Comment on above: Order Comment: Speci men Type: BLOOD SPECIMENOrdering Facility: [facility] Address: [address] [place] [address] Performed By: #### 2 4323-8, 28610-5 ####[facility]CLIA [id number] [facility] [address] [place] [address] [place] Cholesterol non HDL [Mass/Vol] 97 mg/dL Normal <130 [facility] Comment on above: Order Comment: Speci men Type: BLOOD SPECIMENOrdering Facility: [facility] Address: [address] [place] [address] Result Comment: <130 mg/dL, Optimal 130-159 mg/dL, Near optimal/above optimal 160-189 mg/dL, Borderline high 190-219 mg/dL, High >219 mg/dL, Very high Secondary prevention optimal non HDL Cholesterol levels are recommended to be <100 mg/dL Performed By: #### 2 4323-8, 75020-3 ####[facility]CLIA [id number] [facility] [address] [place] [address] [place] Cholesterol.total/Choles terol in HDL [Mass ratio] 4.88 {ratio} Normal <5.10 [facility] Comment on above: Order Comment: Speci men Type: BLOOD SPECIMENOrdering Facility: [facility] Address: [address] [place] [phone] Performed By: #### 2 4323-8, ####[facility] [id number] [facility] [address] [place] [address] [place] FASTING TIME 12 hrs Normal [facility] Comment on above: Order Comment: Speci men Type: BLOOD SPECIMENOrdering Facility: [facility] Address: [address] [place] [address] Performed By: #### 2 4323-8, 40372-1 ####[facility] LABCLIA [id number] [address] Triglyceride [Mass/Vol] 302 mg/dL High <150 [facility] Comment on above: Order Comment: Speci men Type: BLOOD SPECIMENOrdering Facility: [facility] Address: [address] [place] [address] Result Comment: <150 mg/dL, Normal 150-199 mg/dL, Borderline high 200-499 mg/dL, High >499 mg/dL, Very high Performed By: #### 2 4323-8, 04943-0 ####[facility]CLIA [id number] [address] OF [facility] OPERATIVE NOon 01-22-2025 OPERATIVE NO HNO ID: [id number] Author: TAMI ANNE JR, MD Service: Urology Author Type: Physician Type: Operative Report Filed: 01/22/2025 11:17 Note Text: [facility] - Operative Report TRACY GORMAN : 1950 AGE: 74. SEX: M PATIENT TYPE: A HOSP SVC: URO LOCATION: [facility] ATTENDING PHYSICIAN: Tami Anne Jr, MD CSN NUMBER: [id number] DATE OF SURGERY/PROCEDURE: 01/19/2025 INCISION/PROCEDURE START TIME: 9:32 AM INCISION CLOSE/PROCEDURE END TIME: 9:40 AM PREOPERATIVE DIAGNOSIS: Bladder cancer. POSTOPERATIVE DIAGNOSIS: Bladder cancer. SURGEON: Tami Anne Jr, MD SHRINKING MACHINE OPERATOR: No Additional Staff SURGERY/PROCEDURE: Cystoscopy, bladder biopsy, and fulguration for hemostasis. ANESTHESIA: MAC. COMPLICATIONS: None. HISTORY: Tracy Goramn is a 74-year-old gentleman with a history of bladder cancer. Recent cystoscopy showed a couple areas of recurrence. The patient is now taken for biopsy. DESCRIPTION OF PROCEDURE: After being explained the risks, benefits, and alternatives of procedure, the patient was correctly identified, taken to the operative suite, and placed on the table in a dorsal lithotomy position. After MAC anesthesia was induced, prepped and draped in a normal sterile fashion. The 21- Martiniquais cystoscope was inserted transurethrally into the bladder. The entire bladder was visualized. There were a couple of small areas. These were biopsied and left for pathologic analysis. The Bugbee electrode was then used to cauterize the base of these lesions. At this point, the patient's bladder was drained. The scope was removed. The patient was reversed from anesthesia and tolerated the procedure well and afterward was taken to postoperative care unit for recovery. Tami Anne Jr, MD MG:[id number] /[id number] Normal [facility] ANES POSTPROC EVALon 025 ANES POSTPROC EVAL HNO ID: [id number] Author: YANG VALENZUELA MD Service: Anesthesiology Author Type: Physician Type: Anesthesia Postprocedure Evaluation Filed: 01/19/2025 15:12 Note Text: POST ANESTHESIA EVALUATION NOTE : 1950 Procedure Summary Date: 01/19/25 Room / Location: [address] Anesthesia Start: 921 Anesthesia Stop: 946 Procedures: BIOPSY BLADDER (Bladder) CYSTOSCOPY (Bladder) Diagnosis: Malignant neoplasm of urinary bladder, unspecified site (HCC) (Malignant neoplasm of urinary bladder, unspecified site (HCC) [C67.9]) Surgeons: Tami Anne Jr., MD Responsible Provider: Yang Valenzuela MD Anesthesia Type: MAC ASA Status: 3 Anesthesia Type: MAC Last Vitals Vitals Value Taken Time BP 153/98 01/19/25 1011 Temp 36 ?C (96.8 ?F) 01/19/25 0947 HR SpO2 53 01/19/25 1014 Resp 16 01/19/25 1007 SpO2 94 % 01/19/25 1014 Vitals shown include unfiled device data. Post Anesthesia Patient Status Patient Evaluation: PACU. PACU/ICU Patient Condition: stable. Anticipated Disposition: phase 2 then home. Neurological Status: aware and responsive. Pulmonary Status: breathing comfortably on room air Airway Control: returned to baseline unsupported. Cardiovascular Status: stable. Pain Management: clinically adequate Postoperative Hydration: acceptable. Intraoperative Events: no significant anesthesia events Post Operative Nausea/Vomiting Status: no significant post operative nausea or vomiting Recommendation: continue current plan of care. Anesthesia Observations No Documentation SIGNATURE: Yang Valenzuela MD PATIENT NAME: Tracy Gorman DATE: January 19, 2025 TIME: 3:12 PM CSN: [id number] Normal [facility] ANES PRE-OPon 01-19-2025 ANES PRE-OP HNO ID: [id number] Author: YANG VALENZUELA MD Service: Anesthesiology Author Type: Physician Type: Anesthesia Preprocedure Evaluation Filed: 01/19/2025 08:14 Note Text: ANESTHESIOLOGY DAY OF SURGERY NOTE : 1950 Procedure Information Date/Time: 01/19/25 0900 Procedures: BIOPSY BLADDER (Bladder) CYSTOSCOPY (Bladder) Location: [place] [address] / [facility] Surgeons: Tami Anne Jr., MD Estimated body mass index is 24.94 kg/m? as calculated from the following: Height as of 01/05/25: 185.4 cm (6' 1). Weight as of 01/05/25: 85.7 kg (189 lb). 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 Tracheostomy tube not present Mallampati: II. TM distance: >3 FB. Neck ROM: full ROM without neurological symptoms. Mouth opening: adequate. Short neck: no. Thick neck: no DENTAL Dental findings: edentulous. Additional exam findings: no II - ANESTHESIA PLAN ASA Score: 3 Anesthetic Plan: MAC The patient is not a current smoker. NPO Status: adequate Anesthetic plan additional comments: PAD/PVD - plavix held CKD HTN CML DM2 . Beta Lisette Monitoring Plan Monitoring plan: standard ASA. Post Procedure Analgesic Plan Postoperative analgesic plan: multimodal analgesia and parenteral or oral opioids. Informed Consent Anesthetic risks, benefits, alternatives, personnel and consent discussed: yes. Patient / Responsible Republican agrees to proceed: yes Patient / Surrogate agrees to blood products: blood products not planned Significant changes in the patient condition since the History and Physical, not otherwise documented in primary service progress note: no. Potential Anesthesia issues that may suggest increased risk of complications or contraindication to planned procedure: none. Vitals Value Taken Time BP 132/88 01/19/25736 Pulse 57 01/19/25736 Resp 18 01/19/25736 Temp 36.2 ?C (97.2 ?F) 01/19/25736 SpO2 98 % 01/19/25736 Facility-Administere d Medications as of 01/19/2025 Medication Dose Route Frequency lidocaine 10 mg/mL (1 %) 1-2 mg injection (XYLOCAINE) 0.1-0.2 mL INTRADERMAL PRN lactated ringers iv infusion 5-30 mL/hr INTRAVENOUS CONTINUOUS NaCl 0.9% iv flush bag 20 mL INTRAVENOUS PRN [COMPLETED] acetaminophen 975 mg tab(s) (TYLENOL) 975 mg ORAL Pre-Op Once [COMPLETED] celecoxib 400 mg cap(s) (CeleBREX) 400 mg ORAL Pre-Op Once ceFAZolin iv piggyback 2 g in D5W (iso-osmotic) 100 mL (ANCEF) 2 g INTRAVENOUS ONCE Outpatient Medications as of 01/19/2025 Medication Sig amLODIPine (NORVASC) 10 mg tablet Take 1 tablet by mouth once daily. atenolol (TENORMIN) 100 mg tablet Take 1 tablet by mouth once daily. fenofibrate nanocrystallized (TRICOR) 145 mg tablet Take 1 tablet by mouth once daily. finasteride (PROSCAR) 5 mg tablet Take 1 tablet by mouth once daily. lisinopril (ZESTRIL) 20 mg tablet Take 0.5 tablets by mouth once daily. metFORMIN (GLUCOPHAGE) 500 mg tablet Take 1 tablet by mouth two times a day with meals. rosuvastatin (CRESTOR) 10 mg tablet Take 1 tablet by mouth once daily. clopidogrel (PLAVIX) 75 mg tablet Take 75 mg by mouth once daily. Cholecalciferol, Vitamin D3, (VITAMIN D) 1,000 unit cap Take 1 capsule by mouth twice daily. Multivitamin capsule Take 1 capsule by mouth once daily. iv contrast (will be provided with radiology test) CT Urogram WO/W Inject, intravenously, once for 1 dose.No IV access, insert saline lock prior to the beginning of sedation, infusion, injection of imaging exam. Discontinue saline lock post exam. If Pt. has a central line or IVAD, may access for administration according to line specific nursing protocol. Once exam is complete flush line and de-access according to line specific nursing protocol in the CT contrast administration guidelines link. I have interviewed and examined the patient. I have reviewed the medical record and/or the pre-anesthesia evaluation, pertinent labs, and test results. This contains updated information obtained within 48 hours of Surgery/Procedure. SIGNATURE: Yang Valenzuela MD PATIENT NAME: Tracy Gorman DATE: January 19, 2025 TIME: 8:12 AM CSN: [id number] [facility] BRIEF OP NOTon 01-19-2025 BRIEF OP NOT HNO ID: [id number] Author: TAMI ANNE JR, MD Service: Urology Author Type: Physician Type: Brief Op Note Filed: 01/19/2025 09:47 Note Text: BRIEF OPERATIVE / PROCEDURE NOTE LOG ID: * No surgery found * Surgery/Procedure Date: * No surgery found * Incision/Procedure Start Time: Incision Close/Procedure End Time: Surgeon(s)/Procedura list(s) and Reserve Officer(s): * Surgery not found * * Surgery not found * Procedure(s): cysto, bladder biopsy, fulguration Anesthesia: * No surgery found * Findings: as dx suggests Estimated Blood Loss: 0 ml Specimens: None Complications: None Pre-Op/Pre-Procedure Diagnosis: bladder mass Post-Op/Post-Procedu re Diagnosis: * No surgery found * same SIGNATURE: Tami Anne Jr, MD PATIENT NAME: @patient name@ DATE: January 19, 2025 TIME: @BASIL@ PAGER/CONTACT #: [phone] [facility] CNPNon 01-19-2025 JOAON Telephone (AKPRAD) TRACY GORMAN ([id number]) 1950 M Date Time Provider Department 01/19/25 TAMI ANNE JR During your visit today, we recorded the following information about you: Tami Anne Jr., MD 01/19/2025 9:48 AM Signed HANDW OR 01/19/25 Fu with me 2-3 weeks Shawna Guzman 01/19/2025 10:10 AM Signed Called and left vox Patient scheduled on February 01, 2025 at 11:45 am, [facility] location Thank you Shawna Allergies As of Date: 01/19/2025 (No Known Allergies) Date Reviewed: 01/19/2025 Reviewed by: Geo Hernandez, RN - Fully Assessed Reason for Visit: Appointment [186] Prescriptions as of 01/19/2025 - amLODIPine (NORVASC) 10 mg tablet Take 1 tablet by mouth once daily. - atenolol (TENORMIN) 100 mg tablet Take 1 tablet by mouth once daily. - fenofibrate nanocrystallized (TRICOR) 145 mg tablet Take 1 tablet by mouth once daily. - finasteride (PROSCAR) 5 mg tablet Take 1 tablet by mouth once daily. - lisinopril (ZESTRIL) 20 mg tablet Take 0.5 tablets by mouth once daily. - metFORMIN (GLUCOPHAGE) 500 mg tablet Take 1 tablet by mouth two times a day with meals. - rosuvastatin (CRESTOR) 10 mg tablet Take 1 tablet by mouth once daily. - iv contrast (will be provided with radiology test) CT Urogram WO/W Inject, intravenously, once for 1 dose.No IV access, insert saline lock prior to the beginning of sedation, infusion, injection of imaging exam. Discontinue saline lock post exam. If Pt. has a central line or IVAD, may access for administration according to line specific nursing protocol. Once exam is complete flush line and de-access according to line specific nursing protocol in the CT contrast administration guidelines link. - clopidogrel (PLAVIX) 75 mg tablet Take 75 mg by mouth once daily. - Cholecalciferol, Vitamin D3, (VITAMIN D) 1,000 unit cap Take 1 capsule by mouth twice daily. - Multivitamin capsule Take 1 capsule by mouth once daily. Facility-Administere d Medications as of 01/19/2025 - lactated ringers iv infusion - fentaNYL 50 mcg/mL 25 mcg injection (SUBLIMAZE) - oxyCODONE IR 5 mg tab(s) (ROXICODONE) Problem List As Of Date 01/19/2025 Noted Resolved Leukocytosis [D72.829] 05/16/2014 11/22/2017 Hypercalcemia [E83.52] 05/16/2014 11/22/2017 Leucocytosis [D72.829] 04/07/2017 11/22/2017 MPN (myeloproliferative neoplasm) (HCC) [D47.1] 04/28/2017 01/10/2020 Essential hypertension [I10] 04/28/2017 08/16/2020 Hypertriglyceridemia [E78.1] 04/28/2017 08/16/2020 CML (chronic myeloid leukemia) (HCC) [C92.10] 06/28/2017 Thrombocytopenia (HCC) [D69.6] 11/22/2017 08/16/2020 Immunosuppression (HCC) [D84.9] 11/22/2017 11/25/2018 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]02/08/2018 11/25/2018 Encounter for aftercare following bone marrow t*11/17/2018 01/10/2020 PAD (peripheral artery disease) (HCC) [I73.9] MPN (myeloproliferative neoplasm) (HCC) [D47.1] Hyperlipidemia [E78.5] HTN (hypertension) [I10] Prediabetes [R73.03] Benign prostatic hyperplasia without lower urin*01/20/2022 Abdominal aortic aneurysm (AAA) without rupture* Chronic kidney disease (CKD), stage III (modera* Preoperative examination [Z01.818] Malignant neoplasm of urinary bladder (HCC) [C6*07/30/2023 Vitamin D insufficiency [E55.9] 01/24/2024 Atypical chronic myeloid leukemia, 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 Stage 2 chronic kidney disease [N18.2] 12/18/2023 Type 2 diabetes mellitus with diabetic chronic *11/26/2024 Lung nodules [R91.8] 12/26/2024 Encounter Status:Closed by TAMI ANNE on 01/19/25 [facility] NURSING PROGon 01-19-2025 NURSING PROG HNO ID: [id number] Author: GEO HERNANDEZ, GEORGI Service: ? Author Type: Registered Nurse Type: Nursing Progress Note Filed: 01/19/2025 10:32 Note Text: Discharge instructions given to , Mel and patient Patient dressed self, denied help. patient ambulated to restroom and surgery discharge exit Normal [facility] Pathology biopsy report Alexander (Tiss)on 01-19-2025 AP DISCLAIMER Normal [facility] Comment on above: Order Comment: Norma rouse Type: TISSUE SPECIMEN Ordering Facility: [facility] Address: [address] [place] [address] Result Comment: Parag araya Developed Test (LDT) Disclaimer: Performance characteristics of immunohistochemical, immunofluorescent, and chromogenic in-situ hybridization tests have been determined by the performing laboratory within [facility] Pathology and Laboratory Medicine Department ([facility], [facility], [facility], [facility], [facility], [facility], or [facility]) in a manner consistent with CLIA requirements. One or more of these tests may not have been cleared or approved by the FDA. [facility] is regulated under CLIA as qualified to perform high-complexity testing. These tests are used for clinical purposes. These should not be regarded as investigational or for research. Positive and negative controls stain appropriately. Performed By: #### 6 6121-5 #### [facility] CLIA [id number] [address] STATES OF [facility] CASE REPORT Normal [facility] Comment on above: Order Comment: Norma rouse Type: TISSUE SPECIMEN Ordering Facility: [facility] Address: [address] [place], [place] [address] Result Comment: Surg ical Pathology Report Case: [id number] Authorizing Provider: Tami Anne Jr., Collected: 01/19/2025 09:34 AM MD Ordering Location: [facility] Received: 01/19/2025 10:56 AM Pathologist: Amee Hemphill MD Specimen: Bladder, Biopsy Performed By: #### 6 6121-5 #### [facility] CLIA [id number] [address] CLINICAL HISTORY Normal [facility] Comment on above: Order Comment: Speci men Type: TISSUE SPECIMEN Ordering Facility: [facility] Address: [address] [place] [address] Result Comment: Pre- op diagnosis: Malignant neoplasm of urinary bladder, unspecified site (HCC) [C67.9] Performed By: #### 6 6121-5 #### [facility] CLIA [id number] [address] DIAGNOSIS COMMENT This case has been reviewed by Dr. Julio Gottlieb, who concurs with the above findings. [facility] Comment on above: Order Comment: Speci men Type: TISSUE SPECIMEN Ordering Facility: [facility] Address: [address] [place] [address] Performed By: #### 6 6121-5 #### [facility] CLIA [id number] [address] FINAL DIAGNOSIS Normal [facility] Comment on above: Order Comment: Speci men Type: TISSUE SPECIMEN Ordering Facility: [facility] Address: [address] [place] [address] Result Comment: Anton resendiz, biopsy: -- Low-grade noninvasive papillary urothelial carcinoma, see comment. -- Muscularis propria (detrusor muscle) is not present for evaluation. at 0830 EDT Performed By: #### 6 6121-5 #### [facility] CLIA [id number] [address] FINAL PERFORMING LAB Normal [facility] Comment on above: Order Comment: Speci men Type: TISSUE SPECIMEN Ordering Facility: [facility] Address: [address] [place] [address] Result Comment: Diag nostic interpretation performed at: [facility], [address] [address] CLIA# [id number] [employer] Child[employer]ide Classroom: Morgan Dang MD Performed By: #### 6 6121-5 #### [facility] CLIA [id number] [address] GROSS DESCRIPTION Normal [facility] Comment on above: Order Comment: Speci men Type: TISSUE SPECIMEN Ordering Facility: [facility] Address: [address] [place] [address] Result Comment: AKayley B ladder, Biopsy Received in formalin labeled bladder biopsy are multiple pieces of [place], soft tissue aggregating to 0.5 x 0.5 x 0.1cm. Totally submitted in one cassette. Gross examination performed at [facility], [address] [place] [address] [facility] January 22, 2025 2:27 PM Performed By: #### 6 6121-5 #### [facility] CLIA [id number] [address] Bacteria Ur Culton 5 Bacteria identified Cx Nom (U) CULTURE, URINE: No growth (<1,000 CFU/ml) Normal [facility] Comment on above: Performed By: #### 6 30-4 #### [facility] CLIA [id number] [address] HISTORY PHYSICALon 5 HISTORY PHYSICAL HNO ID: [id number] Author: SCOTT GRIFFIN APRN.LINEN ROOM SUPERVISOR Service: ? Author Type: Nurse Practitioner Type: H&P Filed: 01/05/2025 09:54 Note Text: [facility] HISTORY AND PHYSICAL EXAMINATION SERVICE DATE: 01/05/2025 SERVICE TIME:07:45 AM PRIMARY CARE PHYSICIAN: Lambert Gomez MD Assessment Patient has the following medical conditions which may affect marielena-operative course: Problem List Items Addressed This Visit Cardiovascular PAD (peripheral artery disease) Overview Dr. Pitts Current Assessment AND Plan - Plavix. - Pt had angioplasty 2x. (2020, 2022) Hyperlipidemia Current Assessment AND Plan Managed by PCP and Controlled with meds. Cholesterol, Total (mg/dL) Date Value 07/26/2023 120 11/03/2021 132 HTN (hypertension) Current Assessment AND Plan Managed by PCP and Controlled with meds. Last 14 BP Last 14 Encounter BP Readings: Date: BP: 01/05/2025 143/94 Took his BP meds this am right before he arrived to PAT 11/23/2024 142/90 08/31/2024 139/90 08/24/2024 126/87 08/17/2024 162/97 07/26/2024 126/84 06/27/2024 138/88 05/25/2024 164/102 01/26/2024 150/88 01/24/2024 130/82[recheck[ 01/19/2024 157/84 01/12/2024 134/85 11/04/2023 124/88 10/29/2023 161/94 Abdominal aortic aneurysm (AAA) without rupture - Primary Overview CT flank 01/21/21 Current Assessment AND Plan Managed by Vascular CT 06/23/23 CT Lung Screen No enlarged thoracic lymph nodes. Mild ectasia the ascending thoracic aorta measuring 4.2 cm, unchanged. Scattered mild atherosclerotic calcification present within the thoracic and visualized upper abdominal aorta and within the proximal arch branch vessels. The central pulmonary arteries are upper normal in caliber with the main pulmonary artery measuring 29 mm. Normal heart size. Pulmonary Tobacco use disorder Overview H/o 1 PPD for 40 years of cigarette smoking --offered nicotine replacement, declined Current Assessment AND Plan Hx 1PPD X 47 years Down to 8 cig. Daily x 9 months Lung nodules Current Assessment AND Plan Managed by Pulmonary Monitoring for now next visit 06/202506/27/24 CT Lung Multiple scattered calcified and noncalcified pulmonary nodules are noted, all unchanged since prior exam. For example, there is a 6 mm nodule close to the right major fissure, likely a lymph node, image 229. Another 4 mm groundglass nodule is noted along the left major fissure at image 277. Some of the upper lobe predominant nodules may be related to smoking. Nephrology Chronic kidney disease (CKD), stage III (moderate) (HCC) Current Assessment AND Plan Managed by Nephrology and Controlled Creatinine Date Value Ref Range Status 07/26/2024 1.10 0.73 - 1.22 mg/dL Final 08/27/2023 1.21 0.73 - 1.22 mg/dL Final 07/26/2023 1.37 (H) 0.73 - 1.22 mg/dL Final 06/25/2023 1.14 0.73 - 1.22 mg/dL Final Malignant neoplasm of urinary bladder (HCC) Current Assessment AND Plan Scheduled for OR [facility] 01/19/25 Type 2 diabetes mellitus with diabetic chronic kidney disease (HCC) Current Assessment AND Plan Managed by PCP and Controlled with Meds Hemoglobin A1C (%) Date Value 07/26/2024 6.0 01/24/2024 6.1 07/26/2023 5.6 01/20/2023 5.7 07/21/2022 5.8 11/03/2021 6.1 07/30/2021 6.4 01/27/2021 6.1 07/18/2020 5.9 01/08/2020 5.8 Other Preoperative examination Current Assessment AND Plan Patient has the following medical conditions which may affect marielena-operative course addressed in assessment and plan today ANESTHESIA FINDINGS: Intubation History: No history of difficult intubation. No abnormal airway history Significant Anesthesia Considerations: none Airway History: No history of difficult airway No abnormal airway history Cavazos Activity Status Index: METS: Climb a flight of stairs or walk up a hill (5.50 METs) DASI Score: 5.5 Patient denies any chest pain or undue shortness of breath with the above physical activity. ARISCAT Score: Age: 51-80 Preoperative SpO2: >=96% Preoperative anemia: Yes Duration of surgery: <2 hrs Emergency procedure: No ARISCAT Score: I - PHYSICAL EVALUATION AIRWAY Patient intubated: No. DENTAL Dentures, upper: complete. Dentures, lower: complete. II - ANESTHESIA PLAN Anesthetic Plan: general Beta Lisette Monitoring Plan Post Procedure Analgesic Plan Prepared for Surgery: . Last OR 2022 with no issues with anesthesia in ASC CONSULTS: Planned Anesthetic: general The Following Tests/Procedures Have Been Initiated: No orders of the defined types were placed in this encounter. REASON FOR VISIT: Tracy Gorman is a 74 year old male who is scheduled for Procedure(s): BIOPSY BLADDER (N/A) CYSTOSCOPY (N/A) at the request of Dr. Anne, Tami Perez Jr., MD for routine HANDP. My final recommendation will be communicated back to the reque (more content not included)... Normal [facility] CNOVon 11-23-2024 CNOV Office Visit (AKURFL) TRACY GORMAN ([id number]) 1950 M Date Time Provider Department 11/23/24 9:30 AM TAMI ANNE JR AKURFIsaac During your visit today, we recorded the following information about you: Pulse Blood pressure 65/minute 142/90 Tami Anne Jr., MD 11/23/2024 9:25 AM Signed CYSTOSCOPY PROCEDURE NOTE: Tracy Gorman is a 74 year old male who presents with follow up bladder tumor for cystoscopy. Pt ID verified with patient: Yes Fire risk assessment done Procedure verified with patient: Yes Procedure confirmed with physician and collection support specialist: Yes UNIVERSAL PROTOCOL / SAFETY CHECKLIST Procedure to be Performed: cysto Sign In: A Moment of CARE was completed. Appropriate PPE (Personal Protective Equipment) worn by all providers involved with the procedure. Special equipment not required. Patient/Surrogate Stated/Verified: Patient name, Date of , Relevant allergies, and The intended procedure Time Out: Relevant labs, photos, and/or imaging studies have been reviewed. Intended patient and procedure match the source document(s) (e.g. consent, HANDP, associated studies [imaging, pathology]) match the intended patient and procedure. Consent obtained and matches the intended procedure. Yes. Correct side/site is not applicable. Medications required for this procedure are verified. Fire risk assessed and interventions discussed. Implants: are not applicable. Sign Out: Specimens are all correctly labeled and sent. All instruments, equipment, possible retained foreign bodies are accounted for. Yes. The post-procedure plan of care has been communicated to the patient or surrogate. Pre procedure dx: bladder cancer Post procedure dx: same A urinalysis was performed revealing no evidence of infection. The benefits, risks, alternatives of the cystoscopy procedure and personnel were discussed with the patient. The verbal consent was obtained and the patient agrees to proceed. Procedure: The patient was placed on the procedure table in the supine position and prepped and draped in the usual sterile fashion. 2% Lidocaine Jelly was placed per urethra as an anesthetic in the standard fashion. Once adequate local anesthesia was achieved, the tip of the flexible cystoscope was carefully placed into the urethra under direct visual guidance. The scope was negotiated through the pendulous urethra to the level of the bulbar urethra with no evidence of stricture. The verumontanum came into view and the scope was negotiated through the prostatic urethra which showed evidence of a patent prostatic urethra. The bladder was entered and careful mercer endoscopy was carried out. The posterior, superior and lateral benz and dome of the bladder were all well visualized and the scope was retroflexed upon itself. The findings were consistent with small lesion R lateral wall. At the conclusion of the procedure, the flexible cystoscope was removed atraumatically. The patient tolerated the procedure without complications. Patient was given standard post-procedure instructions, and was directed to complete the course of oral antibiotics and increase oral fluid intake as directed. ASSESSMENT/PLAN: Cystoscopy, bladder biopsy All r/b/a of surgery discussed, infection, bleeding, damage to nearby structures, repeat surgery, stent pain/symptoms, , heart attack, stroke, deep vein thrombosis, pulmonary embolus. Patient verbalized understanding and agrees to proceed. Tami Anne Jr, MD Referring Provider: TAMI ANNE JR [[id number]] Allergies As of Date: 11/23/2024 (No Known Allergies) Date Reviewed: 11/23/2024 Reviewed by: Leona Flores MA - Fully Assessed Reason for Visit: Cystoscopy-1 [303] Primary Visit Diagnosis:Malignant neoplasm of urinary bladder, unspecified site (HCC) [C67.9] Order(s):UA DIP, URINE (POC) [1348700] Order #: [id number]. #:[id number] [] ciprofloxacin HCl 500 mg tab(s) (CIPRO)Disp: Rfl: [] lidocaine urojet 2 % 6 mL topical gel (GLYDO)Disp: Rfl: Prescriptions as of 11/23/2024 - amLODIPine (NORVASC) 10 mg tablet Take 1 tablet by mouth once daily. - atenolol (TENORMIN) 100 mg tablet Take 1 tablet by mouth once daily. - fenofibrate nanocrystallized (TRICOR) 145 mg tablet Take 1 tablet by mouth once daily. - finasteride (PROSCAR) 5 mg tablet Take 1 tablet by mouth once daily. - lisinopril (ZESTRIL) 20 mg tablet Take 0.5 tablets by mouth once daily. - metFORMIN (GLUCOPHAGE) 500 mg tablet Take 1 tablet by mouth two times a day with meals. - rosuvastatin (CRESTOR) 10 mg tablet Take 1 tablet by mouth once daily. - iv contrast (will be provided with radiology test) CT Urogram WO/W Inject, intravenously, once for 1 dose.No IV access, insert saline lock prior to the beginning of se (more content not included)... Normal [facility] UA DIP, URINE (POC)on 2024 BILIRUBIN UA (POCT) Negative Negative [facility] CLARITY UA (POCT) Clear [facility] COLOR UA (POCT) Yellow [facility] GLUCOSE UA (POCT) Negative Negative mg/dL [facility] Hemoglobin Ql (U) Negative Negative [facility] Interpretation and review of laboratory results Abnormal [facility] KETONE UA (POCT) Negative Negative mg/dL [facility] LEUKOCYTES UA (POCT) Negative Negative [facility] NITRITE UA (POCT) Negative Negative [facility] PH UA (POCT) 6 4.5 - 8.0 [facility] Protein Ql (U) >=300 Abnormal Negative mg/dL [facility] SPECIFIC GRAVITY UA (POCT) >=1.030 1.005 - 1.030 [facility] UROBILINOGEN UA (POCT) 0.2 Simin l E.U./dL [facility] Location:[facility], [address] [place] [address] POINT OF CARE [facility] Anion gap in Serum or Plasma Ordered By: Tania Ortiz on 11-15-2024 Anion gap [Moles/Vol] 14 mmol/L 5-15 [facility] BUN/creatinine ratioOrdered By: Tania Ortiz on 11-15-2024 Urea nitrogen/Creatinine [Mass ratio] 21.5 mg/mg High 10-[address] [facility] Carbon dioxide, total [Moles /volume] in Central venous bloodOrdered By: Tania Ortiz on 11-15-2024 CO2 [Moles/Vol] 21.9 mmol/L 21.0-32.[address] [facility] Chloride assayOrdered By: Jonas Ortiz on 11-15-2024 Chloride [Moles/Vol] 105 mmol/L 98-108 [facility] Creatinine Unsp time (U) [Ma ss/Vol]Ordered By: Tania Ortiz on 11-15-2024 Creatinine (U) [Mass/Vol] 104.00 mg/dL 39-[address] [facility] GFR/1.73 sq M.predicted mark g non-blacks MDRD (S/P/Bld) [Vol rate/Area]Ordered By: Tania Ortiz on 11-15-2024 Estimated GFR (MDRD) Non-Af Amer 77 >[address] [facility] Comment on above: mL/min/1.73m2 CKD-EP I Creatinine Equation (2020) Glomerular filtration rate ( GFR) estimation/1.73 sq m using serum, plasma, or whole bOrdered By: Tania Ortiz on 11-15-2024 GFR/1.73 sq M.predicted among non-blacks MDRD (S/P/Bld) [Vol rate/Area] 77 mL/min/{1.73_m2} >[address] [facility] Comment on above: mL/min/1.73m2 CKD-EP I Creatinine Equation (2020) Potassium (Unsp spec) [Mass/ Vol]Ordered By: Tania Ortiz on 11-15-2024 Potassium [Moles/Vol] 4.2 mmol/L 3.3-5.1 [facility] Potassium measurement (mass/ volume)Ordered By: Tania Ortiz on 11-15-2024 Potassium (Unsp spec) [Mass/Vol] 4.2 mmol/L 3.3-5.[address] [facility] Protein+Creatinine Ratio,Uri neon 11-15-2024 PROT:CRE RATIO 1106 mg/g CRE High 0-[address] [facility] Comment on above: Performed By: #### L 500.3600, L501.0900 #### [facility] [address] [place], [address] Protein (U) [Mass/Vol] 115.0 mg/dL High 0.0-12.0 [facility] Comment on above: Performed By: #### L 500.3600, L501.0900 #### [facility] [address] [place], [address] UR CREAT 104.00 mg/dL Normal 39-[address] [facility] Comment on above: Performed By: #### L 500.3600, L501.0900 #### [facility] [address] [place], [address] Protein/Creatinine (U) [Mass ratio]Ordered By: Tania Ortiz on 11-15-2024 Urine Protein/Creatinine Ratio 1106 mg/g CRE High 0-[address] [facility] Random urine creatinine michael urement (mass/volume)Ordered By: Tania Ortiz on 11-15-2024 Creatinine Unsp time (U) [Mass/Vol] 104.00 mg/dL 39-[address] [facility] Renal Profileon 11-15-2024 Albumin [Mass/Vol] 4.5 g/dL Normal 3.4-4.8 [facility] Comment on above: Performed By: #### L 500.3600, L501.0900 #### [facility] [address] [place], [address] BUN/CRE 21.5 RATIO High 10-[address] [facility] Comment on above: Performed By: #### L 500.3600, L501.0900 #### [facility] [address] [place], [address] Calcium [Mass/Vol] 10.0 mg/dL Normal 7.6-11.0 [facility] Comment on above: Performed By: #### L 500.3600, L501.0900 #### [facility] [address] [place], [address] Chloride [Moles/Vol] 105 mmol/L Normal 98-108 [facility] Comment on above: Performed By: #### L 500.3600, L501.0900 #### [facility] [address] [place], [address] CO2 [Moles/Vol] 21.9 mmol/L Normal 21.0-32.[address] [facility] Comment on above: Performed By: #### L 500.3600, L501.0900 #### [facility] [address] [place], [address] Creatinine [Mass/Vol] 1.02 mg/dL Normal 0.70-1.20 [facility] Comment on above: Performed By: #### L 500.3600, L501.0900 #### [facility] [address] [place], [address] GAP 14 Normal 5-[address] [facility] Comment on above: Performed By: #### L 500.3600, L501.0900 #### [facility] [address] [place], [address] GFR/1.73 sq M.predicted among non-blacks MDRD (S/P/Bld) [Vol rate/Area] 77 mL/min/{1.73_m2} Normal >[address] [facility] Comment on above: Result Comment: mL/m in/1.73m2 CKD-EPI Creatinine Equation (2020) Performed By: #### L 500.3600, L501.0900 #### [facility] [address] [place], [address] Glucose [Mass/Vol] 140 mg/dL High 70-99 [facility] Comment on above: Performed By: #### L 500.3600, L501.0900 #### [facility] [address] [place], [address] Phosphate [Mass/Vol] 2.8 mg/dL Normal 2.7-4.5 [facility] Comment on above: Performed By: #### L 500.3600, L501.0900 #### [facility] [address] [place], [address] Potassium [Moles/Vol] 4.2 mmol/L Normal 3.3-5.1 [facility] Comment on above: Performed By: #### L 500.3600, L501.0900 #### [facility] [address] [place], [address] Sodium [Moles/Vol] 141 mmol/L Normal 133-145 [facility] Comment on above: Performed By: #### L 500.3600, L501.0900 #### [facility] [address] [place], [address] Urea nitrogen [Mass/Vol] 22 mg/dL High 12-[address] [facility] Comment on above: Performed By: #### L 500.3600, L501.0900 #### [facility] [address] [place], [address] Serum creatinine measurement (mass/volume)Ordered By: Tania Ortiz on 11-15-2024 Creatinine [Mass/Vol] 1.02 mg/dL 0.70-1.20 [facility] Serum glucose measurement (m ass/volume)Ordered By: Tania Ortiz on 11-15-2024 Glucose [Mass/Vol] 140 mg/dL High 70-99 [facility] Serum or plasma albumin michael urement (mass/volume)Ordered By: Tania Ortiz on 11-15-2024 Albumin [Mass/Vol] 4.5 g/dL 3.4-4.8 [facility] Serum or plasma calcium michael urement (mass/volume)Ordered By: Tania Ortiz on 11-15-2024 Calcium [Mass/Vol] 10.0 mg/dL 7.6-11.0 [facility] Serum or plasma urea nitroge n measurement (mass/volume)Ordered By: Tania Ortiz on 11-15-2024 Urea nitrogen [Mass/Vol] 22 mg/dL High 12-[address] [facility] Serum phosphorus measurement Ordered By: Tania Ortiz on 11-15-2024 Phosphorus Level 2.8 mg/dL 2.7-4.[address] [facility] Sodium levelOrdered By: Son Ortiz on 11-15-2024 Sodium [Moles/Vol] 141 mmol/L 133-145 [facility] Urine protein measurement (m ass/volume)Ordered By: Tania Ortiz on 11-15-2024 Protein (U) [Mass/Vol] 115.0 mg/dL High 0.0-12.0 [facility] Urine protein/creatinine mas s ratioOrdered By: Tania Ortiz on 11-15-2024 Protein/Creatinine (U) [Mass ratio] 1106 mg/g CRE High 0-[address] [facility] [facility] CNOV Office Visit (FAMPWS) TRACY GORMAN ([id number]) 1950 Date Time Provider Department 07/26/24 8:40 AM [facility] During your visit today, we recorded the following information about you: Pulse Respiration Blood pressure Weight 60/minute 16/minute 126/84 84.9 kg Lambert Gomez MD 07/27/2024 10:17 AM Signed Michael Mahajan Gorman is a 73 year old male here for a Medicare wellness visit. Patient has been in good health without recent hospitalizations, ER visits, or falls. No concerns today. Patient following up with Dr. Anne for history of bladder cancer s/p TURBT with plan for BCG therapy. Up to date on cancer screening, COVID and influenza vaccination. Due for routine labs. Medicare Health Risk Assessment General Health Excellent Exercise: Minutes/Day 40 min Exercise: Days/Week 4 days Alcohol: Daily Use Never Alcohol: Drinks/Day Patient does not drink Alcohol: 6 or more drinks Never Feel off balance No Concerns: Teeth/Dentures No Concerns: Sexual function No Troubled by feelings None of the above Frequency: Eating healthy diet More than half the days ADLs requiring help None of the above Safety precautions in home/vehicle Yes Smoke, vape, chews tobacco No Difficulty hearing No Difficulty seeing No Current Providers Specialists: I have reviewed specialist-related care of the patient in the medical record. Current care team: Patient Care Team: Lambert Gomez MD as PCP - General (Family Medicine) Jey Truong, RN as Specialty Multi Craft Maintenance Technician (Blood and Marrow Transplant) Tosha Ray APRN.LINEN ROOM SUPERVISOR as Nurse Practitioner (Blood and Marrow Transplant) Outside specialists seen: Nephrology: Dr. Ortiz, Oncology: Tania Ray, Dr Anne: Urology, Dr. Pitts: vascular surgery, Pulmonology: Joel Mccann located in [place], but cannot recall their name. Medical/Family history review Reviewed and updated problem list, medical/surgical/fam yrn/social history, medications, and allergies. Opioid use review Opioid Medications (last 90 days) No data to display Anxiety/Depression screening PHQ-2 Score: 0 AVINASH-7 Score: 0. Recommendation: no further intervention at this time Cognitive screening Mini Cog Score: 4 Cognitive screening reviewed and No further action needed (score 3-5). Functional Observation Was the patient's Timed Up AND Go test unsteady or >= 12 seconds? No Advance Care Planning Patient did not wish or was not able to name a surrogate decision maker or provide an advance care plan FULL CODE Measurements BP 126/84 Pulse 60 Resp 16 Wt 84.9 kg (187 lb 3.2 oz) SpO2 99% BMI 24.70 kg/m? Vision Screening: Right: 20/25 Left: 20/ 50 Both: 20/30 with correction Latest Ref Rng 01/24/2024 WBC 3.70 - 11.00 k/uL 8.57 RBC 4.20 - 6.00 m/uL 5.44 Hemoglobin 13.0 - 17.0 g/dL 15.8 Hematocrit 39.0 - 51.0 % 50.1 MCV 80.0 - 100.0 fL 92.1 MCH 26.0 - 34.0 pg 29.0 MCHC 30.5 - 36.0 g/dL 31.5 RDW-CV 11.5 - 15.0 % 16.1 (H) Platelet Count 150 - 400 k/uL 272 MPV 9.0 - 12.7 fL 10.1 Neut% % 62.6 Abs Neut (ANC) 1.45 - 7.50 k/uL 5.38 Lymph% % 26.4 Abs Lymph 1.00 - 4.00 k/uL 2.26 [place]% % 7.4 Abs [place] <0.87 k/uL 0.63 Eosin% % 2.5 Abs Eosin <0.46 k/uL 0.21 Baso% % 0.5 Abs Baso <0.11 k/uL 0.04 Immature Gran % % 0.6 IMMATURE GRANS (ABS) <0.10 k/uL 0.05 NRBC /100 WBC 0.0 Absolute nRBC <0.01 k/uL <0.01 DTYPE Auto Iron 41 - 186 ug/dL 77 TIBC 232 - 386 ug/dL 371 Transferrin Saturation 15.0 - 57.0 % 20.8 Hemoglobin A1C 4.3 - 5.6 % 6.1 (H) Estimated Average Glucose mg/dL 128 Ferritin 30.3 - 565.7 ng/mL 80.4 Vitamin D 25 Hydroxy 31.0 - 80.0 ng/mL 31.6 Legend: (H) High Latest Ref Rng 07/26/2023 Cholesterol, Total <200 mg/dL 120 Triglyceride <150 mg/dL 219 (H) HDL Cholesterol >39 mg/dL 26 (L) Non HDL Cholesterol <130 mg/dL 94 Fasting Time hrs 14 VLDL Cholesterol <30 mg/dL 44 (H) TC:HDL Ratio <5.10 4.62 LDL Cholesterol <100 mg/dL 50 LDL:HDL Ratio <2.54 1.92 Legend: (H) High (L) Low ASSESSMENT/PLAN: 1. Medicare annual wellness visit, subsequent - ICD9: V70.0, ICD10: Z00.00 (primary diagnosis) Medicare annual wellness visit, subsequent (Z00.00) - Counseled on healthy diet and regular exercise - Fall avoidance information provided - Personalized prevention plan provided 2. Primary hypertension - ICD9: 401.9, ICD10: I10 - Controlled - Continue current medications - Recommend home blood pressure monitoring, to bring results to next visit - Encouraged sodium restriction, DASH or Mediterranean diet - Recommend regular aerobic exercise - ATENOLOL 100 MG TABLET - LISINOPRIL 20 MG TABLET 3. Mixed hyperlipidemia - ICD9: 272.2, ICD10: E78.2 - Controlled - Continue current medications - Counseled on healthy diet and regular exercise - FENOFIBRATE NANOCRYSTALLIZED 145 MG TAB (more content not included)... Normal [facility] metabolic 2000 panelon 07-26-2024 Albumin [Mass/Vol] 4.6 g/dL 3.9 - 4.9 g/dL [facility] ALP [Catalytic activity/Vol] 56 U/L 38 - 113 U/L [facility] ALT [Catalytic activity/Vol] 12 U/L 10 - 54 U/L [facility] Anion gap [Moles/Vol] 11 mmol/L 8 - 15 mmol/L [facility] AST [Catalytic activity/Vol] 23 U/L 14 - 40 U/L [facility] Bilirubin [Mass/Vol] 0.4 mg/dL 0.2 - 1 .3 mg/dL [facility] Calcium [Mass/Vol] 10.2 mg/dL 8.5 - 10. 2 mg/dL [facility] Chloride [Moles/Vol] 106 mmol/L 98 - 10 7 mmol/L [facility] CO2 [Moles/Vol] 25 mmol/L 22 - 30 mmol/L [facility] Creatinine [Mass/Vol] 1.10 mg/dL 0.73 - 1.22 mg/dL [facility] GFR/1.73 sq M.predicted among non-blacks MDRD (S/P/Bld) [Vol rate/Area] 71 mL/min/{1.73_m2} - PINF [facility] Comment on above: Estimated Glomerular Filtration Rate (eGFR) is calculated using the 2020 CKD-EPI creatinine equation. This equation utilizes serum creatinine, sex, and age as parameters. The creatinine assay has traceable calibration to isotope dilution-mass spectrometry. Refer to KDIGO guidelines for clinical interpretation. In patients with unstable renal function, e.g. those with acute kidney injury, the eGFR may not accurately reflect actual GFR. Glucose [Mass/Vol] 129 mg/dL High 74 - 99 mg/dL [facility] Comment on above: The [place] Diabete s Association (ADA) provides guidance for cutoff values for fasting glucose and random glucose. The ADA defines fasting as no caloric intake for at least 8 hours. Fasting plasma glucose results between 100 to 125 mg/dL indicate increased risk for diabetes (prediabetes). Fasting plasma glucose results greater than or equal to 126 mg/dL meet the criteria for diagnosis of diabetes. In the absence of unequivocal hyperglycemia, results should be confirmed by repeat testing. In a patient with classic symptoms of hyperglycemia or hyperglycemic crisis, random plasma glucose results greater than or equal to 200 mg/dL meet the criteria for diagnosis of diabetes. Reference: Standards of Medical Care in Diabetes 2016, [place] Diabetes Association. Diabetes Care. 2016.39(Suppl 1). Interpretation and review of laboratory results Abnormal [facility] Potassium [Moles/Vol] 4.5 mmol/L 3.7 - 5.1 mmol/L [facility] Protein [Mass/Vol] 7.5 g/dL 6.3 - 8.0 g/dL [facility] Sodium [Moles/Vol] 142 mmol/L 136 - 144 mmol/L [facility] Urea nitrogen [Mass/Vol] 25 mg/dL High 9 - 24 mg/d L [facility] Albumin [Mass/Vol] 4.6 g/dL Normal 3.9-4.9 [facility] Comment on above: Order Comment: Waii men Type: BLOOD SPECIMENOrdering Facility: [facility] Address: [address] [place] [address] Performed By: #### 2 4323-8 ####[facility] LABCLIA [id number] [place] [address] [place] ALP [Catalytic activity/Vol] 56 U/L Normal 38-113 [facility] Comment on above: Order Comment: Norma rouse Type: BLOOD SPECIMENOrdering Facility: [facility] Address: [address] [place] [address] Performed By: #### 2 4323-8 ####[facility] LABCLIA [id number] [place] [address] [place] ALT [Catalytic activity/Vol] 12 U/L Normal 10-54 [facility] Comment on above: Order Comment: Speci men Type: BLOOD SPECIMENOrdering Facility: [facility] Address: [address] [place] [address] Performed By: #### 2 4323-8 ####[facility] LABCLIA [id number] [place] [address] [place] Anion gap [Moles/Vol] 11 mmol/L Normal 8-15 [facility] Comment on above: Order Comment: Speci men Type: BLOOD SPECIMENOrdering Facility: [facility] Address: [address] [place], [place] [id number] Performed By: #### 2 4323-8 ####[facility] LABCLIA [id number] [place] [id number] [place] AST [Catalytic activity/Vol] 23 U/L Normal 14-40 [facility] Comment on above: Order Comment: Speci men Type: BLOOD SPECIMENOrdering Facility: [facility] Address: [address] [place] [address] Performed By: #### 2 4323-8 ####[facility] LABCLIA [id number] [place] [address] [place] Bilirubin [Mass/Vol] 0.4 mg/dL Normal 0.2-1.3 [facility] Comment on above: Order Comment: Speci men Type: BLOOD SPECIMENOrdering Facility: [facility] Address: [address] [place] [address] Performed By: #### 2 4323-8 ####[facility] LABCLIA [id number] [place] [address] [place] Calcium [Mass/Vol] 10.2 mg/dL Normal 8.5-10.2 [facility] Comment on above: Order Comment: Speci men Type: BLOOD SPECIMENOrdering Facility: [facility] Address: [address] [place] [address] Performed By: #### 2 4323-8 ####[facility] LABCLIA [id number] [place] [id number] [place] Chloride [Moles/Vol] 106 mmol/L Normal 98-107 [facility] Comment on above: Order Comment: Speci men Type: BLOOD SPECIMENOrdering Facility: [facility] Address: [address] [place], [place] [id number] Performed By: #### 2 4323-8 ####[facility] LABCLIA [id number] [place] [address] [place] CO2 [Moles/Vol] 25 mmol/L Normal 22-30 [facility] Comment on above: Order Comment: Speci men Type: BLOOD SPECIMENOrdering Facility: [facility] Address: [address] [place] [address] Performed By: #### 2 4323-8 ####[facility] LABIA [id number] [place] [address] [place] Creatinine [Mass/Vol] 1.10 mg/dL Normal 0.73-1.22 [facility] Comment on above: Order Comment: Speci men Type: BLOOD SPECIMENOrdering Facility: [facility] Address: [address] [place] [address] Performed By: #### 2 4323-8 ####[facility] LABIA [id number] [place] [address] [place] Creatinine and Glomerular filtration rate.predicted panel (S/P/Bld) 71 mL/min/1.73m??? Normal >=60 [facility] Comment on above: Order Comment: Speci men Type: BLOOD SPECIMENOrdering Facility: [facility] Address: [address] [place] [address] Result Comment: Madeline mated Glomerular Filtration Rate (eGFR) is calculated using the 2020 CKD-EPI creatinine equation. This equation utilizes serum creatinine, sex, and age as parameters. The creatinine assay has traceable calibration to isotope dilution-mass spectrometry. Refer to KDIGO guidelines for clinical interpretation. In patients with unstable renal function, e.g. those with acute kidney injury, the eGFR may not accurately reflect actual GFR. Performed By: #### 2 4323-8 ####[facility] LABIA [id number] [place] [address] [place] Glucose [Mass/Vol] 129 mg/dL High 74-99 [facility] Comment on above: Order Comment: Speci men Type: BLOOD SPECIMENOrdering Facility: [facility] Address: [address] [place] [address] Result Comment: The [place] Diabetes Association (ADA) provides guidance for cutoff values for fasting glucose and random glucose. The ADA defines fasting as no caloric intake for at least 8 hours. Fasting plasma glucose results between 100 to 125 mg/dL indicate increased risk for diabetes (prediabetes). Fasting plasma glucose results greater than or equal to 126 mg/dL meet the criteria for diagnosis of diabetes. In the absence of unequivocal hyperglycemia, results should be confirmed by repeat testing. In a patient with classic symptoms of hyperglycemia or hyperglycemic crisis, random plasma glucose results greater than or equal to 200 mg/dL meet the criteria for diagnosis of diabetes. Reference: Standards of Medical Care in Diabetes 2016, [place] Diabetes Association. Diabetes Care. 2016.39(Suppl 1). Performed By: #### 2 4323-8 ####[facility] LABIA [id number] [place] [address] [place] Potassium [Moles/Vol] 4.5 mmol/L Normal 3.7-5.1 [facility] Comment on above: Order Comment: Speci men Type: BLOOD SPECIMENOrdering Facility: [facility] Address: [address] [place] [address] Performed By: #### 2 4323-8 ####[facility] LABIA [id number] [place] [address] [place] Protein [Mass/Vol] 7.5 g/dL Normal 6.3-8.0 [facility] Comment on above: Order Comment: Speci men Type: BLOOD SPECIMENOrdering Facility: [facility] Address: [address] [place] [address] Performed By: #### 2 4323-8 ####[facility] LABIA [id number] [place] [address] [place] Sodium [Moles/Vol] 142 mmol/L Normal 136-144 [facility] Comment on above: Order Comment: Speci men Type: BLOOD SPECIMENOrdering Facility: [facility] Address: [address] [place] [address] Performed By: #### 2 4323-8 ####[facility] LABCLIA [id number] [place] [address] [place] Urea nitrogen [Mass/Vol] 25 mg/dL High 9-24 [facility] Comment on above: Order Comment: Norma rouse Type: BLOOD SPECIMENOrdering Facility: [facility] Address: [address] [place] [address] Performed By: #### 2 4323-8 ####[facility] LABCLIA [id number] [place] [address] [place] HbA1c (Bld)on 07-26-2024 Average glucose Estimated from glycated hemoglobin (Bld) [Mass/Vol] 126 mg/dL [facility] Comment on above: eAG: (Estimated aver age glucose) is a calculated value from HgbA1c and is route service representative of the average blood glucose level in the last 2-3 month period. HbA1c (Bld) [Mass fraction] 6.0 % High 4.3 - 5.6 % [facility] Comment on above: [place] Diabetes As sociation guidelines indicate that patients with HgbA1c in the range 5.7-6.4% are at increased risk for development of diabetes, and intervention by lifestyle modification may be beneficial. HgbA1c greater or equal to 6.5% is considered diagnostic of diabetes. Interpretation and review of laboratory results Abnormal [facility] Average glucose Estimated from glycated hemoglobin (Bld) [Mass/Vol] 126 mg/dL Normal [facility] Comment on above: Order Comment: Norma rouse Type: BLOOD SPECIMENOrdering Facility: [facility] Address: [address] [place] [address] Result Comment: eAG: (Estimated average glucose) is a calculated value from HgbA1c and is route service representative of the average blood glucose level in the last 2-3 month period. Performed By: #### 5 5454-3 ####[facility] LABCLIA [id number] [place] [address] [place] HbA1c (Bld) [Mass fraction] 6.0 % High 4.3-5.6 [facility] Comment on above: Order Comment: Speci men Type: BLOOD SPECIMENOrdering Facility: [facility] Address: [address] [place] [address] Result Comment: Michael [place] Diabetes Association guidelines indicate that patients with HgbA1c in the range 5.7-6.4% are at increased risk for development of diabetes, and intervention by lifestyle modification may be beneficial. HgbA1c greater or equal to 6.5% is considered diagnostic of diabetes. Performed By: #### 5 5454-3 ####[facility] LABCLIA [id number] [facility] [id number] [id number] [facility] ALLIED HEALTHon 06-27-2024 ALLIED HEALTH HNO ID: [id number] Author: REBECCA EMERSON CT Service: Radiology Author Type: Technologist Type: Allied Health Filed: 06/27/2024 08:47 Note Text: Radiology Service Progress Note PATIENT NAME: Tracy Mahajan Sherif DATE OF SERVICE: June 27, 2024 TIME: 8:46 AM PATIENT IDENTITY VERIFICATION COMPLETED USING TWO (2) IDENTIFIERS: Name and Date of confirmed by patient verbally and Name and Date of confirmed by identification band. FALL SCREENING: Has the patient had 2 falls in the last year or 1 fall with injury or currently using an Ambulatory Assistive Device (Walker, Cane, Wheelchair, Crutches, etc.)? No PATIENT GENDER DATA: Male PATIENT RELEVANT IMPLANT DATA REVIEWED: Not Applicable PATIENT PRESENTS WITH AN IMPLANTABLE OR ATTACHED FARMWORKER: No RADIOLOGY DEPARTMENT: CT; Exam(s) Completed: Lung Screening PERIPHERAL IV DATA: Not applicable SIGNED BY: KI Arvizu June 27, 2024 8:46 AM [facility] CNOVon 06-27-2024 CNOV Office Visit ([facility]) TRACY GORMAN ([id number]) 1950 M Date Time Provider Department 06/27/24 9:30 AM SHEELA VERA [facility] During your visit today, we recorded the following information about you: Pulse Blood pressure Weight 65/minute 138/88 86.4 kg Sheela Vera APRNMARKEL 06/27/2024 9:54 AM Signed LUNG SCREENING ANNUAL VISIT PRIMARY CARE PHYSICIAN: Lambert Gomez MD PULMONARY PROVIDER: Leia Shaw PA-C Results will be communicated via letter or electronic record if applicable. Visit Delivery: In Person Patient Visit Type: established Current or Ex-smoker? [Current Exam Type: annual LDCT Number of Pack Years: 49 Current smoker (=0) The patient's smoking history is similar to prior year shared decision visit. The reason for the discrepancy is NA Chief Complaint: Established patient in lung cancer screening program here for annual follow-up. Impression / Recommendations Tracy Gorman presents for annual lung cancer screening annual exam and nodule evaluation. Plan: Indeterminate pulmonary nodules: Previously identified nodules appear stable and no new nodules of concern were seen on the exam. Low dose CT Scan to be repeated in one year. Plan subject to change pending final radiology report and recommendations. Nature of the lung nodule(s) and the options for further evaluation discussed in detail with patient. Tracy Gorman expressed understanding and is in agreement with plan. 2. Encounter for screening for malignant neoplasm of respiratory organs I have determined that the patient is eligible for continued low dose CT screening based on age, absence of signs or symptoms of lung cancer, smoking history and total pack years. The patient was counseled on the importance of adherence to annual LDCT lung cancer screening, impact of comorbidities and ability or willingness to undergo diagnosis and treatment. The patient understands and feels comfortable with it: Yes. 3. Nicotine Dependence The patient was counseled on the importance of smoking cessation if current smoker and, if appropriate, offered additional tobacco cessation counseling services - Smoking Cessation Counseling. SMOKING CESSATION COUNSELING Smoking cessation methods including Behavior Modification were discussed with the patient and assistance offered. The medical conditions adversely affected by cigarette use include:COPD, Emphysema, and Lung Cancer. Counseled on benefits of quitting smoking, recommended cessation or reduction to prevent development and/or progression of emphysema. The patient is currently not ready to quit. I personally spent 2 minutes in counseling. The time spent in smoking cessation counseling is exclusive of any other counseling during this visit. I spent a total of 30 minutes on the date of the service which included preparing to see the patient, [id number] patient care, completing clinical documentation, performing a medically appropriate examination, counseling and educating the patient/family/careg iver, ordering medications, tests, or procedures, communicating with other HCPs (not separately reported), independently interpreting results (not separately reported), communicating results to the patient/family/careg iver, and care coordination (not separately reported). Sheela Vera APRN.[facility] June 27, 2024 9:37 AM History of Present Illness: Tracy Gorman is a 73 year old male who is presenting today for annual lung cancer screening LDCT and nodule surveillance/managem ent. Patient has multiple nodules found on previous lung cancer screening LDCT. Last LDCT was performed on 06/23/2023 and was LUNG RADS Category 2. Previous potentially significant incidental findings on imaging: Moderate CAC Patient is a current smoker with a 24 pack year history. Patient is currently still smoking 8 cigarettes daily. Patient will continue to be eligible for lung cancer screening until age 77. The patient does not have any symptoms or signs of lung cancer. Patient denies SOB with their daily activity. No wheezing or dyspnea. Patient denies feeling of chest tightness/congestion in the chest. Patient does not have a new or concerning cough, and denies hemoptysis. Patient does not have a chronic daily cough. Denies regular or recent fevers/chills. Patient does not have any significant unintentional weight loss. Patient denies having any respiratory infections or COVID-19 in the past few months. Does not use any maintenance inhaler for COPD. 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 Last check 05/25/2024, and was all clear. Plan for maintenance BCG treatment 08/2024. Modified M (more content not included)... Normal [facility] CT Chest for screening WO co [place] 06-27-2024 IMPRESSION: LungRADS category: 2 LungRADS modifier: Significant other (S), coronary artery calcification, moderate or severe LungRADS 0 reason: n/a Recommendations: Continue annual screening with LDCT in 12 months. Other actionable findings: -Coronary artery calcification. Reference: [place] [employer]. Lung CT Screening Reporting and Data System (Lung-RADS). Available at: [email or web address].org/Q uality-Safety/Resour titus/LungRADS Fermentation Operator: ANKIT Transcribe Date/Time: Jun 27 2024 10:16A Dictated by : LORRAINE MORLEY MD This examination was interpreted and the report reviewed and electronically signed by: LORRAINE MORLEY MD on Jun 27 2024 10:34AM [facility] RADIOLOGY * * *Final Report* * * DATE OF EXAM: Jun 27 2024 8:49AM [facility] [id number] - CT LUNG SCREEN WO IVCON / PROCEDURE REASON: multiple diagnoses * * * * Physician Interpretation * * * * EXAMINATION: CHEST CT WITHOUT CONTRAST (LOW-DOSE CT LUNG CANCER SCREENING PROTOCOL) CLINICAL HISTORY: Lung cancer LDCT screening ? absence of signs or symptoms of lung cancer. Nicotine dependence (cigarettes). Subsequent (annual) Technique: Spiral CT acquisition of the chest from the thoracic inlet to the upper abdomen without contrast. MQ: [id number]_6 Patient characteristics: * Fjbk-rq-[id number]: 1950; Age at exam: 73 years * Gender: Male * Lung Disease: Asymptomatic (no signs or symptoms of lung disease) * Number of Pack Years: 49 * Current smoker (=0) or Number of Years since Quit: 0 * Ordering provider and NPI: RACHAEL ENGLISH [id number] * Interpreting radiologist and NPI: Jacobo [id number] Exam acquisition parameters: * Exam Date: 06/27/2024 8:49 AM * Site: [facility] * * CT System Sales Engagement Executive: [employer] * CT System Model: [facility] * Tube Current-Time (mA-sec): 100 * Peak Voltage (kV): 120V * Scan Time (sec): 4.85 * Scan Volume (z-length, cm): 33.60 * Pitch: .984 * Slice Thickness (mm): 1.25 * CT Dose-Length Product: 155 mGy*cm * CT Dose Index: 4.19mGy * CT Dose Reduction Method: Iterative recon and mAs-kVp adjusted using patient size-age COMPARISON: 06/23/2023 RESULT: Are nodules present? Yes, 6 or more nodules If No, go to IMPRESSION. If yes, proceed with characterization of the FIVE largest nodules. Multiple scattered calcified and noncalcified pulmonary nodules are noted, all unchanged since prior exam. For example, there is a 6 mm nodule close to the right major fissure, likely a lymph node, image 229. Another 4 mm groundglass nodule is noted along the left major fissure at image 277. Some of the upper lobe predominant nodules may be related to smoking. Other findings: Mild biapical scarring is likely postinflammatory. There is mild central and peripheral bronchial wall thickening. Linear bands of atelectasis/scarring are noted at the lung bases. No pleural effusion. The thyroid gland is unremarkable. Few subcentimeter mediastinal and hilar lymph nodes are nonspecific. The esophagus is nondistended. The aortic root is mildly ectatic measuring 3.8 cm in the mid segment. Also noted is mild to moderate ectasia of the ascending thoracic aorta, measuring 4.3 cm in the mid segment. There is mild calcified atherosclerotic disease of the thoracic aorta. Central pulmonary arteries are at the upper limits of normal size. The left ventricle is at the upper limits of normal size. No pericardial effusion is noted. Hepatic steatosis is noted. Emphysema: Mild (5-25%), centrilobular, diffuse Coronary Artery Calcifications: Circumflex mild; Left Anterior Descending moderate; Right Coronary moderate Incidental coronary calcium as automatically processed and calculated using AI: Total Coronary Calcium Score = [100+] Agatston Units Percentile Rank (age and gender matched relative to reference population): [25th-75th] percentile* [* https://www.nath-nhl bi.org/calcium/input .aspx] Localizer images: No additional findings. - [facility] Provider, [facility] [place] - 06/27/2024 * * *Final Report* * * DATE OF EXAM: Jun 27 2024 8:49AM [facility] [id number] - CT LUNG SCREEN WO IVCON / PROCEDURE REASON: multiple diagnoses * * * * Physician Interpretation * * * * EXAMINATION: CHEST CT WITHOUT CONTRAST (LOW-DOSE CT LUNG CANCER SCREENING PROTOCOL) CLINICAL HISTORY: Lung cancer LDCT screening ? absence of signs or symptoms of lung cancer. Nicotine dependence (cigarettes). Subsequent (annual) Technique: Spiral CT acquisition of the chest from the thoracic inlet to the upper abdomen without contrast. MQ: CTLCS_6 Patient characteristics: * Zuou-fc-Ruelp: 1950; Age at exam: 73 years * Gender: Male * Lung Disease: Asymptomatic (no signs or symptoms of lung disease) * Number of Pack Years: 49 * Current smoker (=0) or Number of Years since Quit: 0 * Ordering provider and NPI: RACHAEL ENGLISH [id number] * Interpreting radiologist and NPI: Jacobo [id number] Exam acquisition parameters: * Exam Date: 06/27/2024 8:49 AM * Site: [facility] * * CT System Sales Engagement Executive: [employer] * CT System Model: [facility] * Tube Current-Time (mA-sec): 100 * Peak Voltage (kV): 120V * Scan Time (sec): 4.85 * Scan Volume (z-length, cm): 33.60 * Pitch: .984 * Slice Thickness (mm): 1.25 * CT Dose-Length Product: 155 mGy*cm * CT Dose Index: 4.19mGy * CT Dose Reduction Method: Iterative recon and mAs-kVp adjusted using patient size-age COMPARISON: 06/23/2023 RESULT: Are nodules present? Yes, 6 or more nodules If No, go to IMPRESSION. If yes, proceed with characterization of the FIVE largest nodules. Multiple scattered calcified and noncalcified pulmonary nodules are noted, all unchanged since prior exam. For example, there is a 6 mm nodule close to the right major fissure, likely a lymph node, image 229. Another 4 mm groundglass nodule is noted along the left major fissure at image 277. Some of the upper lobe predominant nodules may be related to smoking. Other findings: Mild biapical scarring is likely postinflammatory. There is mild central and peripheral bronchial wall thickening. Linear bands of atelectasis/scarring are noted at the lung bases. No pleural effusion. The thyroid gland is unremarkable. Few subcentimeter mediastinal and hilar lymph nodes are nonspecific. The esophagus is nondistended. The aortic root is mildly ectatic measuring 3.8 cm in the mid segment. Also noted is mild to moderate ectasia of the ascending thoracic aorta, measuring 4.3 cm in the mid segment. There is mild calcified atherosclerotic disease of the thoracic aorta. Central pulmonary arteries are at the upper limits of normal size. The left ventricle is at the upper limits of normal size. No pericardial effusion is noted. Hepatic steatosis is noted. Emphysema: Mild (5-25%), centrilobular, diffuse Coronary Artery Calcifications: Circumflex mild; Left Anterior Descending moderate; Right Coronary moderate Incidental coronary calcium as automatically processed and calculated using AI: Total Coronary Calcium Score = [100+] Agatston Units Percentile Rank (age and gender matched relative to reference population): [25th-75th] percentile* [* https://www.nath-nhl bi.org/calcium/input .aspx] Localizer images: No additional findings. - IMPRESSION IMPRESSION: LungRADS category: 2 LungRADS modifier: Significant other (S), coronary artery calcification, moderate or severe LungRADS 0 reason: n/a Recommendations: Continue annual screening with LDCT in 12 months. Other actionable findings: -Coronary artery calcification. Reference: [employer]. Lung CT Screening Reporting and Data System (Lung-RADS). Available at: http://www.acr.org/Q uality-Safety/Resour titus/LungRADS Fermentation Operator: ANKIT Transcribe Date/Time: Jun 27 2024 10:16A Dictated by : LORRAINE MORLEY MD This examination was interpreted and the report reviewed and electronically signed by: LORRAINE MORLEY MD on Jun 27 2024 10:34AM EST [facility] Radiology Study observation (narrative) [facility] CT Chest for screening WO co ntrastOrdered By: [facility] Provider on 06-27-[address] [facility] [address] LUNG SCREEN WO IVCONon CT LUNG SCREEN WO IVCON * * *Final Repor t* * * DATE OF EXAM: Jun 27 2024 8:49AM [facility] [address]562 - CT LUNG SCREEN WO IVCON / PROCEDURE REASON: multiple diagnoses * * * * Physician Interpretation * * * * EXAMINATION: CHEST CT WITHOUT CONTRAST (LOW-DOSE CT LUNG CANCER SCREENING PROTOCOL) CLINICAL HISTORY: Lung cancer LDCT screening ? absence of signs or symptoms of lung cancer. Nicotine dependence (cigarettes). Subsequent (annual) Technique: Spiral CT acquisition of the chest from the thoracic inlet to the upper abdomen without contrast. MQ: CTLCS_6 Patient characteristics: * Vang-ok-Tvear: 1950; Age at exam: 73 years * Gender: Male * Lung Disease: Asymptomatic (no signs or symptoms of lung disease) * Number of Pack Years: 49 * Current smoker (=0) or Number of Years since Quit: 0 * Ordering provider and NPI: RACHAEL ENGLISH [id number] * Interpreting radiologist and NPI: Jacobo [id number] Exam acquisition parameters: * Exam Date: 06/27/2024 8:49 AM * Site: [facility] * * CT System Sales Engagement Executive: [employer] * CT System Model: [facility] * Tube Current-Time (mA-sec): 100 * Peak Voltage (kV): 120V * Scan Time (sec): 4.85 * Scan Volume (z-length, cm): 33.60 * Pitch: .984 * Slice Thickness (mm): 1.25 * CT Dose-Length Product: 155 mGy*cm * CT Dose Index: 4.19mGy * CT Dose Reduction Method: Iterative recon and mAs-kVp adjusted using patient size-age COMPARISON: 06/23/2023 RESULT: Are nodules present? Yes, 6 or more nodules If No, go to IMPRESSION. If yes, proceed with characterization of the FIVE largest nodules. Multiple scattered calcified and noncalcified pulmonary nodules are noted, all unchanged since prior exam. For example, there is a 6 mm nodule close to the right major fissure, likely a lymph node, image 229. Another 4 mm groundglass nodule is noted along the left major fissure at image 277. Some of the upper lobe predominant nodules may be related to smoking. Other findings: Mild biapical scarring is likely postinflammatory. There is mild central and peripheral bronchial wall thickening. Linear bands of atelectasis/scarring are noted at the lung bases. No pleural effusion. The thyroid gland is unremarkable. Few subcentimeter mediastinal and hilar lymph nodes are nonspecific. The esophagus is nondistended. The aortic root is mildly ectatic measuring 3.8 cm in the mid segment. Also noted is mild to moderate ectasia of the ascending thoracic aorta, measuring 4.3 cm in the mid segment. There is mild calcified atherosclerotic disease of the thoracic aorta. Central pulmonary arteries are at the upper limits of normal size. The left ventricle is at the upper limits of normal size. No pericardial effusion is noted. Hepatic steatosis is noted. Emphysema: Mild (5-25%), centrilobular, diffuse Coronary Artery Calcifications: Circumflex mild; Left Anterior Descending moderate; Right Coronary moderate Incidental coronary calcium as automatically processed and calculated using AI: Total Coronary Calcium Score = [100+] Agatston Units Percentile Rank (age and gender matched relative to reference population): [25th-75th] percentile* [* https://www.nath-nhl bi.org/calcium/input .aspx] Localizer images: No additional findings. - IMPRESSION: LungRADS category: 2 LungRADS modifier: Significant other (S), coronary artery calcification, moderate or severe LungRADS 0 reason: n/a Recommendations: Continue annual screening with LDCT in 12 months. Other actionable findings: -Coronary artery calcification. Reference: [employer]. Lung CT Screening Reporting and Data System (Lung-RADS). Available at: http://www.acr.org/Q uality-Safety/Resour titus/LungRADS Fermentation Operator: ANKIT Transcribe Date/Time: Jun 27 2024 10:16A Dictated by : LORRAINE MORLEY MD This examination was interpreted and the report reviewed and electronically signed by: LORRAINE MORLEY MD on Jun 27 2024 10:34AM EST [id number] [facility] CNOVon 05-25-2024 [facility] Office Visit (AKURFL) SHERIFTRACY Mahajan ([id number]) 1950 M Date Time Provider Department 05/25/24 8:30 AM TAMI ANNE JR During your visit today, we recorded the following information about you: Pulse Blood pressure 60/minute 164/102 Tami Anne Jr., MD 05/25/2024 9:08 AM Signed CYSTOSCOPY PROCEDURE NOTE: Tracy Mahajan Sherif is a 73 year old male who presents with follow up bladder tumor for cystoscopy. Pt ID verified with patient: Yes Fire risk assessment done Procedure verified with patient: Yes Procedure confirmed with physician and collection support specialist: Yes UNIVERSAL PROTOCOL / SAFETY CHECKLIST Procedure to be Performed: Cystoscopy Sign In: A Moment of CARE was completed. Personnel directly involved with the procedure wore the appropriate PPE (Personal Protective Equipment). Patient/Surrogate Stated/Verified: PATIENT VERIFIED(optional for EMERGENT procedures): Patient name, Date of , Relevant allergies, and The intended procedure Time Out Communication: Intended patient and procedure match the source documents. Consent documented and matches the intended procedure. Sign Out: SIGN OUT (optional for EMERGENT procedures): No specimen collected. Tami Anne Jr, MD Pre procedure dx: History of bladder cancer high grade T1 s/p BCG induction and maintenance Post procedure dx: no sign of bladder cancer A urinalysis was performed revealing no evidence of infection. The benefits, risks, alternatives of the cystoscopy procedure and personnel were discussed with the patient. The verbal consent was obtained and the patient agrees to proceed. Procedure: The patient was placed on the procedure table in the supine position and prepped and draped in the usual sterile fashion. 2% Lidocaine Jelly was placed per urethra as an anesthetic in the standard fashion. Once adequate local anesthesia was achieved, the tip of the flexible cystoscope was carefully placed into the urethra under direct visual guidance. The scope was negotiated through the pendulous urethra to the level of the bulbar urethra with no evidence of stricture. The verumontanum came into view and the scope was negotiated through the prostatic urethra which showed evidence of bi lobar occlusive disease. The bladder was entered and careful mercer endoscopy was carried out. The posterior, superior and lateral benz and dome of the bladder were all well visualized and the scope was retroflexed upon itself. The findings were consistent with no evidence of bladder mucosal pathology. At the conclusion of the procedure, the flexible cystoscope was removed atraumatically. The patient tolerated the procedure without complications. Patient was given standard post-procedure instructions, and was directed to complete the course of oral antibiotics and increase oral fluid intake as directed. ASSESSMENT/PLAN: Repeat maintenance BCG Follow up for cystoscopy Cat Guevara MD Urology PGY-4 Pager #[phone] 05/25/2024 8:45 AM I was present for the entire procedure and directly participated in the critical and hogue portions of the surgery. I was immediately available to provide assistance throughout the entire case. Tami Anne Jr, MD Referring Provider: TAMI ANNE JR [[id number]] Allergies As of Date: 05/25/2024 (No Known Allergies) Date Reviewed: 05/25/2024 Reviewed by: Tami Anne Jr., MD - Fully Assessed Reason for Visit: Cystoscopy-1 [303] Primary Visit Diagnosis:Malignant neoplasm of urinary bladder, unspecified site (HCC) [C67.9] Order(s):[] ciprofloxacin HCl 500 mg tab(s) (CIPRO)Disp: Rfl: [] lidocaine urojet 2 % 6 mL topical gel (GLYDO)Disp: Rfl: UA DIP, URINE (POC) [[id number]] Order #: [id number]. #:[id number] Prescriptions as of 05/25/2024 - amLODIPine (NORVASC) 10 mg tablet Take 1 tablet by mouth once daily. - atenolol (TENORMIN) 100 mg tablet Take 1 tablet by mouth once daily. - fenofibrate nanocrystallized (TRICOR) 145 mg tablet Take 1 tablet by mouth once daily. - finasteride (PROSCAR) 5 mg tablet Take 1 tablet by mouth once daily. - lisinopril (ZESTRIL) 20 mg tablet Take 0.5 tablets by mouth once daily. - metFORMIN (GLUCOPHAGE) 500 mg tablet Take 1 tablet by mouth two times a day with meals. - rosuvastatin (CRESTOR) 10 mg tablet Take 1 tablet by mouth once daily. - iv contrast (will be provided with radiology test) CT Urogram WO/W Inject, intravenously, once for 1 dose.No IV access, insert saline lock prior to the beginning of sedation, infusion, injection of imaging exam. Discontinue saline lock post exam. If Pt. has a central line or IVAD, may access for administration according to line specific nursing protocol. Once exam is complete flush line and de-access according to line specific nursing protocol in the (more content not included)... Normal [facility] CNPRobina 05-25-2024 CNPN Telephone (AKURFL) TRACY GORMAN ([id number]) 1950 M Date Time Provider Department 05/25/24 TAMI ANNE JR During your visit today, we recorded the following information about you: Tami Anne Jr., MD 05/25/2024 8:43 AM Signed Set up 3 rounds maintenance bcg in August Leona Floers MA 05/25/2024 10:27 AM Signed Orders pended for review and signature MARTHA Garcia Kris, MA 05/25/2024 10:27 AM Signed Addended by: LEONA FLORES on: 05/25/2024 10:27 AM Modules accepted: Orders Tami Anne Jr., MD 05/25/2024 10:43 AM Signed Addended by: TAMI ANNE on: 05/25/2024 10:43 AM Modules accepted: Orders Leona Flores MA 05/25/2024 2:29 PM Signed Appts, set patient informed. Leona Flores MA Allergies As of Date: 05/25/2024 (No Known Allergies) Date Reviewed: 05/25/2024 Reviewed by: Tami Anne Jr., MD - Fully Assessed Reason for Visit: Orders [681] Prescriptions as of 05/25/2024 - amLODIPine (NORVASC) 10 mg tablet Take 1 tablet by mouth once daily. - atenolol (TENORMIN) 100 mg tablet Take 1 tablet by mouth once daily. - fenofibrate nanocrystallized (TRICOR) 145 mg tablet Take 1 tablet by mouth once daily. - finasteride (PROSCAR) 5 mg tablet Take 1 tablet by mouth once daily. - lisinopril (ZESTRIL) 20 mg tablet Take 0.5 tablets by mouth once daily. - metFORMIN (GLUCOPHAGE) 500 mg tablet Take 1 tablet by mouth two times a day with meals. - rosuvastatin (CRESTOR) 10 mg tablet Take 1 tablet by mouth once daily. - iv contrast (will be provided with radiology test) CT Urogram WO/W Inject, intravenously, once for 1 dose.No IV access, insert saline lock prior to the beginning of sedation, infusion, injection of imaging exam. Discontinue saline lock post exam. If Pt. has a central line or IVAD, may access for administration according to line specific nursing protocol. Once exam is complete flush line and de-access according to line specific nursing protocol in the CT contrast administration guidelines link. - clopidogrel (PLAVIX) 75 mg tablet Take 75 mg by mouth once daily. - Cholecalciferol, Vitamin D3, (VITAMIN D) 1,000 unit cap Take 1 capsule by mouth twice daily. - Multivitamin capsule Take 1 capsule by mouth once daily. 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]02/08/2018 11/25/2018 Encounter for aftercare following bone marrow t*11/17/2018 01/10/2020 PAD (peripheral artery disease) ([facility]) [I73.9] MPN (myeloproliferative neoplasm) ([facility]) [D47.1] Hyperlipidemia [E78.5] HTN (hypertension) [I10] Prediabetes [R73.03] Benign prostatic hyperplasia without lower urin*01/20/2022 Abdominal aortic aneurysm (AAA) without rupture* Chronic kidney disease (CKD), stage III (modera* Preop examination [Z01.818] Bladder cancer ([facility]) [C67.9] 07/30/2023 Vitamin D insufficiency [E55.9] 01/24/2024 Encounter Status:Closed by TAMI ANNE on 05/25/24 Normal [facility] UA DIP, URINE (POC)on 2023 BILIRUBIN UA (POCT) Negative Negative [facility] CLARITY UA (POCT) Clear [facility] COLOR UA (POCT) Yellow [facility] GLUCOSE UA (POCT) Negative Negative mg/dL [facility] Hemoglobin Ql (U) Negative Negative [facility] Interpretation and review of laboratory results Abnormal [facility] KETONE UA (POCT) Negative Negative mg/dL [facility] LEUKOCYTES UA (POCT) Negative Negative [facility] NITRITE UA (POCT) Negative Negative [facility] PH UA (POCT) 6.0 4.5 - 8.0 [facility] Protein Ql (U) >=300 Abnormal Negative mg/dL [facility] SPECIFIC GRAVITY UA (POCT) >=1.030 1.005 - 1.030 [facility] UROBILINOGEN UA (POCT) 0.2 Simin l E.U./dL [facility] Location:[facility], [address] [place] [address], [id number] [facility] POINT OF CARE [facility] 25-hydroxyvitamin D3 [Mass/V ol]on 01-24-2024 Interpretation and review of laboratory results Normal [facility] CBC W Auto Differential pane l (Bld)on 01-24-2024 Basophils (Bld) [#/Vol] 0.04 10*3/uL [facility] Basophils/100 WBC (Bld) 0.5 % C [facility] Differential cell count method Nom (Bld) Auto [facility] Eosinophils (Bld) [#/Vol] 0.21 10*3/uL [facility] Eosinophils/100 WBC (Bld) 2.5 % [facility] Erythrocyte distribution width (RBC) [Ratio] 16.1 % High 11.5 - 15.0 % [facility] Hematocrit (Bld) [Volume fraction] 50.1 % 39.0 - 51.0 % [facility] Hemoglobin (Bld) [Mass/Vol] 15.8 g/dL 13.0 - 17.0 g/dL [facility] Immature granulocytes (Bld) [#/Vol] 0.05 10*3/uL [facility] Immature granulocytes/100 WBC (Bld) 0.6 % [facility] Interpretation and review of laboratory results Abnormal [facility] Lymphocytes (Bld) [#/Vol] 2.26 10*3/uL [facility] Lymphocytes/100 WBC (Bld) 26.4 % [facility] MCH (RBC) [Entitic mass] 29.0 pg 26. 0 - 34.0 pg [facility] MCHC (RBC) [Mass/Vol] 31.5 g/dL 30.5 - 36.0 g/dL [facility] MCV (RBC) [Entitic vol] 92.1 fL 80.0 - 100.0 fL [facility] Monocytes (Bld) [#/Vol] 0.63 10*3/uL [facility] Monocytes/100 WBC (Bld) 7.4 % [facility] Neutrophils (Bld) [#/Vol] 5.38 10*3/uL [facility] Neutrophils/100 WBC (Bld) 62.6 % [facility] Nucleated RBC (Bld) [#/Vol] [facility] Nucleated RBC/100 WBC (Bld) [Ratio] 0.0 % /100 WBC [facility] Platelet mean volume (Bld) [Entitic vol] 10.1 fL 9.0 - 12.7 fL [facility] Platelets (Bld) [#/Vol] 272 10*3/uL [facility] RBC (Bld) [#/Vol] 5.44 10*6/uL 4.20 - 6.0 0 m/uL [facility] WBC (Bld) [#/Vol] 8.57 10*3/uL [facility] FERRITINon 01-24-2024 Ferritin [Mass/Vol] 80.4 ng/mL 30.3 - 5 65.7 ng/mL [facility] Ferritin [Mass/Vol]on 2023 Interpretation and review of laboratory results Normal [facility] HbA1c (Bld)on 01-24-2024 Average glucose Estimated from glycated hemoglobin (Bld) [Mass/Vol] 128 mg/dL [facility] Comment on above: eAG: (Estimated aver age glucose) is a calculated value from HgbA1c and is route service representative of the average blood glucose level in the last 2-3 month period. HbA1c (Bld) [Mass fraction] 6.1 % High 4.3 - 5.6 % [facility] Comment on above: [employer] guidelines indicate that patients with HgbA1c in the range 5.7-6.4% are at increased risk for development of diabetes, and intervention by lifestyle modification may be beneficial. HgbA1c greater or equal to 6.5% is considered diagnostic of diabetes. Interpretation and review of laboratory results Abnormal [facility] Iron and Iron binding capaci ty panelon 01-24-2024 Interpretation and review of laboratory results Normal [facility] Iron [Mass/Vol] 77 ug/dL 41 - 186 ug/dL [facility] Iron binding capacity [Mass/Vol] 371 ug/dL 232 - 386 ug/dL [facility] Iron/TIBC [Molar ratio] 20.8 % 15.0 - 57.0 % [facility] VITAMIN D 25 HYDROXYon 01-23 25-hydroxyvitamin D3 [Mass/Vol] 31.6 ng/mL 31.0 - 80.0 ng/mL [facility] Basophil percentageOrdered B y: Tania Ortiz on 12-17-2023 Basophil percentage 2.6 mg/dL 2.5-4.9 [facility] Chloride [Moles/Vol] 112 mmol/L 98-107 [facility] Glucose [Mass/Vol] 118 mg/dL 74-106 [facility] Comment on above: Fasting Glucose resu lt from 100 to 125 mg/dL suggests IMPAIRED HOMEOSTASIS per A.D.A. criteria. Potassium [Moles/Vol] 4.2 mmol/L 3.5-5.1 [facility] Sodium [Moles/Vol] 141 mmol/L 136-145 [facility] Laboratory - Chemistry and C hemistry - challengeOrdered By: Tania Ortiz on 12-17-2023 CO2 [Moles/Vol] 24.0 mmol/L 21.0-32.[address] [facility] Urea nitrogen/Creatinine [Mass ratio] 20.0 mg/mg 10-[address] [facility] No Panel InformationOrdered By: Tania Ortiz on 12-17-2023 Estimated GFR (MDRD) Amer 67 mL/min >[address] [facility] Comment on above: GFR Calc Estimated GFR (MDRD) Non-Af Amer 55 mL/min >[address] [facility] Comment on above: Non- GFR Calc Serum or plasma calcium michael urement (mass/volume)Ordered By: Tania Ortiz on 12-17-2023 Calcium [Mass/Vol] 9.7 mg/dL 8.5-10.1 [facility] Serum or plasma creatinine m easurement (mass/volume)Ordered By: Tania Ortiz on 12-17-2023 Creatinine [Mass/Vol] 1.35 mg/dL 0.70-1.30 [facility] Comment on above: The validity of the calculated GFR & GFRAA in patients over 70 years has not been determined. Clinical correlation is essential. Serum or plasma urea nitroge n measurement (mass/volume)Ordered By: Tania Ortiz on 12-17-2023 Urea nitrogen [Mass/Vol] 27 mg/dL 7-[address] [facility] Thin prep Papanicolaou smear with manual screeningOrdered By: Tania Ortiz on 12-17-2023 Protein (U) [Mass/Vol] 221.0 mg/dL 0.0-11.8 [facility] Thin prep Papanicolaou smear with manual screening 4.0 g/dL 3.2-5.[address] [facility] Urine creatinine measurement (mass/volume)Ordered By: Tania Ortiz on 12-17-2023 Creatinine (U) [Mass/Vol] 248.00 mg/dL NO RANGE EST. [facility] Urine protein/creatinine mas s ratioOrdered By: Tania Ortiz on 12-17-2023 Protein/Creatinine (U) [Mass ratio] 891 mg/g CRE 0-[address] [facility] UA DIP, URINE (POC)on 2023 BILIRUBIN UA (POCT) Negative Negative [facility] CLARITY UA (POCT) Clear [facility] COLOR UA (POCT) Yellow [facility] GLUCOSE UA (POCT) Negative Negative mg/dL [facility] Hemoglobin Ql (U) Moderate Abnormal Negative [facility] KETONE UA (POCT) Negative Negative mg/dL [facility] LEUKOCYTES UA (POCT) Negative Negative [facility] NITRITE UA (POCT) Negative Negative [facility] PH UA (POCT) 6.0 4.5 - 8.0 [facility] Protein Ql (U) >=300 Abnormal Negative mg/dL [facility] SPECIFIC GRAVITY UA (POCT) >=1.030 1.005 - 1.030 [facility] UROBILINOGEN UA (POCT) 0.2 E.U./dL Simin l E.U./dL [facility] Basophil percentageOrdered B y: Tania Ortiz on 10-05-2023 Basophil percentage 0-5 SEEN /hpf 0-5 [facility] Bilirubin Test strip Ql (U)O rdered By: Tania Ortiz on 10-05-2023 Bilirubin Ql (U) Negative Negative [facility] Ketones Test strip Ql (U)Ord ered By: Tania Ortiz on 10-05-2023 Ketones Ql (U) Negative Negative [facility] Mucus LM Ql (Urine sed)Order ed By: Tania Ortiz on 10-05-2023 Mucus Ql (Urine sed) 0 SEEN /hpf [facility] Nitrite Test strip Ql (U)Ord ered By: Tania Ortiz on 10-05-2023 Nitrite Ql (U) Negative Negative [facility] No Panel InformationOrdered By: Tania Ortiz on 10-05-2023 Urine RBC 0-5 SEEN /hpf 0-[address] [facility] Protein Test strip Ql (U)Ord ered By: Tania Ortiz on 10-05-2023 Protein Ql (U) 100 mg/dl Negative [facility] Squamous epithelial cells de tection in urine sediment by light microscopyOrdered By: Tania Ortiz on 10-05-2023 Epithelial cells.squamous LM Ql (Urine sed) 0 SEEN /hpf 0-[address] [facility] Thin prep Papanicolaou smear with manual screeningOrdered By: Tania Ortiz on 10-05-2023 Protein (U) [Mass/Vol] 83.2 mg/dL 0.0-11.8 [facility] Urine blood detectionOrdered By: Tania Ortiz on 10-05-2023 RBC Ql (U) 10 /ul Negative [facility] Urine clarityOrdered By: Elsa Ortiz on 10-05-2023 Clarity (U) Clear Clear [facility] Urine color determinationOrd ered By: Tania Ortiz on 10-05-2023 Color (U) Yellow Yellow [facility] Urine creatinine measurement (mass/volume)Ordered By: Tania Ortiz on 10-05-2023 Creatinine (U) [Mass/Vol] 83.30 mg/dL NO RANGE EST. [facility] Urine glucose detectionOrder ed By: Tania Ortiz on 10-05-2023 Glucose Ql (U) Normal mg/dl Normal [facility] Urine leukocyte esterase det ection by dipstickOrdered By: Tania Ortiz on 10-05-2023 Leukocyte esterase Test strip Ql (U) Negative Negative [facility] Urine pHOrdered By: Stephany Ortiz on 10-05-2023 pH (U) 6.0 [pH] 5.0 - 8.[address] [facility] Urine protein/creatinine mas s ratioOrdered By: Tania Ortiz on 10-05-2023 Protein/Creatinine (U) [Mass ratio] 999 mg/g CRE 0-[address] [facility] Urine sediment bacteria coun t by microscopy (number/high power field)Ordered By: Tania Ortiz on 10-05-2023 Bacteria LM.HPF (Urine sed) [#/Area] 0 /[HPF] None Seen [facility] Urine specific gravity measu rementOrdered By: Tania Ortiz on 10-05-2023 Specific gravity (U) [Rel density] 1.020 1.002-1.[address] [facility] Urine urobilinogen measureme ntOrdered By: Tania Ortiz on 10-05-2023 Urobilinogen Ql (U) Normal mg/dl Normal [facility] Basophil percentageOrdered B y: Tania Ortiz on 09-29-2023 Basophil percentage 2.6 mg/dL 2.5-4.9 [facility] Chloride [Moles/Vol] 112 mmol/L 98-107 [facility] Glucose [Mass/Vol] 220 mg/dL 74-106 [facility] Comment on above: Glucose result great er than or equal to 200 mg/dLsuggests DIABETES MELLITUS per A.D.A. criteria. Potassium [Moles/Vol] 3.9 mmol/L 3.5-5.1 [facility] Sodium [Moles/Vol] 141 mmol/L 136-145 [facility] Laboratory - Chemistry and C hemistry - challengeOrdered By: Tania Ortiz on 09-29-2023 CO2 [Moles/Vol] 24.0 mmol/L 21.0-32.[address] [facility] Urea nitrogen/Creatinine [Mass ratio] 19.6 mg/mg 10-[address] [facility] No Panel InformationOrdered By: Tania Ortiz on 09-29-2023 Estimated GFR (MDRD) Amer 65 mL/min >[address] [facility] Comment on above: GFR Calc Estimated GFR (MDRD) Non-Af Amer 54 mL/min >[address] [facility] Comment on above: Non- GFR Calc Serum or plasma calcium michael urement (mass/volume)Ordered By: Tania Ortiz on 09-29-2023 Calcium [Mass/Vol] 10.2 mg/dL 8.5-10.1 [facility] Serum or plasma creatinine m easurement (mass/volume)Ordered By: Tania Ortiz on 09-29-2023 Creatinine [Mass/Vol] 1.38 mg/dL 0.70-1.30 [facility] Comment on above: The validity of the calculated GFR & GFRAA in patients over 70 years has not been determined. Clinical correlation is essential. Serum or plasma urea nitroge n measurement (mass/volume)Ordered By: Tania Ortiz on 09-29-2023 Urea nitrogen [Mass/Vol] 27 mg/dL 7-[address] [facility] Thin prep Papanicolaou smear with manual screeningOrdered By: Tania Ortiz on 09-29-2023 Thin prep Papanicolaou smear with manual screening 3.6 g/dL 3.2-5.[address] [facility] UA DIP, URINE (POC)on 2022 BILIRUBIN UA (POCT) Negative Negative [facility] CLARITY UA (POCT) Clear [facility] COLOR UA (POCT) Yellow [facility] GLUCOSE UA (POCT) Negative Negative mg/dL [facility] Hemoglobin Ql (U) Moderate Abnormal Negative [facility] KETONE UA (POCT) Negative Negative mg/dL [facility] LEUKOCYTES UA (POCT) Small Abnormal Negative [facility] NITRITE UA (POCT) Negative Negative [facility] PH UA (POCT) 6.0 4.5 - 8.0 [facility] Protein Ql (U) 100 mg/dL Abnormal Negative mg/dL [facility] SPECIFIC GRAVITY UA (POCT) 1.025 1.005 - 1.030 [facility] UROBILINOGEN UA (POCT) 0.2 E.U./dL Simin l E.U./dL [facility] CBC W Auto Differential pane l (Bld)on 07-26-2023 Basophils (Bld) [#/Vol] 0.05 10*3/uL <0.11 k/uL [facility] Basophils/100 WBC (Bld) 0.6 % [facility] Differential cell count method Nom (Bld) Auto [facility] Eosinophils (Bld) [#/Vol] 0.14 10*3/uL <0.46 k/uL [facility] Eosinophils/100 WBC (Bld) 1.6 % [facility] Erythrocyte distribution width (RBC) [Ratio] 14.8 % 11.5 - 15.0 % [facility] Hematocrit (Bld) [Volume fraction] 28.7 % Low 39.0 - 51.0 % [facility] Hemoglobin (Bld) [Mass/Vol] 8.5 g/dL Low 13.0 - 17.0 g/dL [facility] Immature granulocytes (Bld) [#/Vol] 0.03 10*3/uL <0.10 k/uL [facility] Immature granulocytes/100 WBC (Bld) 0.4 % [facility] Lymphocytes (Bld) [#/Vol] 1.93 10*3/uL 1.00 - 4.00 k/uL [facility] Lymphocytes/100 WBC (Bld) 22.7 % [facility] MCH (RBC) [Entitic mass] 26.2 pg 26. 0 - 34.0 pg [facility] MCHC (RBC) [Mass/Vol] 29.6 g/dL Low 30.5 - 36.0 g/dL [facility] MCV (RBC) [Entitic vol] 88.3 fL 80.0 - 100.0 fL [facility] Monocytes (Bld) [#/Vol] 0.34 10*3/uL <0.87 k/uL [facility] Monocytes/100 WBC (Bld) 4.0 % [facility] Neutrophils (Bld) [#/Vol] 6.03 10*3/uL 1.45 - 7.50 k/uL [facility] Neutrophils/100 WBC (Bld) 70.7 % [facility] Nucleated RBC (Bld) [#/Vol] <0.01 k/uL [facility] Nucleated RBC/100 WBC (Bld) [Ratio] 0.0 /100 WBC [facility] Platelet mean volume (Bld) [Entitic vol] 11.7 fL 9.0 - 12.7 fL [facility] Platelets (Bld) [#/Vol] 224 10*3/uL 150 - 400 k/uL [facility] RBC (Bld) [#/Vol] 3.25 10*6/uL Low 4.20 - 6.0 0 m/uL [facility] WBC (Bld) [#/Vol] 8.52 10*3/uL 3.70 - 11. 00 k/uL [facility] Comprehensive metabolic 2000 panelon 07-26-2023 Albumin [Mass/Vol] 4.2 g/dL 3.9 - 4.9 g/dL [facility] ALP [Catalytic activity/Vol] 44 U/L 38 - 113 U/L [facility] ALT [Catalytic activity/Vol] 8 U/L Low 10 - 54 U/L [facility] Anion gap [Moles/Vol] 10 mmol/L 9 - 18 mmol/L [facility] AST [Catalytic activity/Vol] 19 U/L 14 - 40 U/L [facility] Bilirubin [Mass/Vol] 0.2 mg/dL 0.2 - 1 .3 mg/dL [facility] Calcium [Mass/Vol] 10.4 mg/dL High 8.5 - 10. 2 mg/dL [facility] Chloride [Moles/Vol] 107 mmol/L High 97 - 10 5 mmol/L [facility] CO2 [Moles/Vol] 23 mmol/L 22 - 30 mmol/L [facility] Creatinine [Mass/Vol] 1.37 mg/dL High 0.73 - 1.22 mg/dL [facility] Estimated Glomerular Filtration Rate 55 mL/min/1.73m Low >=60 mL/min/1.73m [facility] Glucose [Mass/Vol] 126 mg/dL High 74 - 99 mg/dL [facility] Potassium [Moles/Vol] 4.6 mmol/L 3.7 - 5.1 mmol/L [facility] Protein [Mass/Vol] 6.9 g/dL 6.3 - 8.0 g/dL [facility] Sodium [Moles/Vol] 140 mmol/L 136 - 144 mmol/L [facility] Urea nitrogen [Mass/Vol] 26 mg/dL High 9 - 24 mg/d L [facility] HbA1c (Bld)on 07-26-2023 Average glucose Estimated from glycated hemoglobin (Bld) [Mass/Vol] 114 mg/dL [facility] HbA1c (Bld) [Mass fraction] 5.6 % 4.3 - 5.6 % [facility] Lipid 1996 panelon 3 Cholesterol [Mass/Vol] 120 mg/dL <200 mg/dL [facility] Cholesterol in HDL [Mass/Vol] 26 mg/dL Low >39 mg/dL [facility] Cholesterol in LDL [Mass/Vol] 50 mg/dL <100 mg/dL [facility] Cholesterol in LDL/Cholesterol in HDL [Mass ratio] 1.92 {ratio} <2.54 [facility] Cholesterol in VLDL [Mass/Vol] 44 mg/dL High <30 mg/dL [facility] Cholesterol non HDL [Mass/Vol] 94 mg/dL <130 mg/dL [facility] Cholesterol.total/Choles terol in HDL [Mass ratio] 4.62 {ratio} <5.10 [facility] Fasting Time 14 hrs [facility] Triglyceride [Mass/Vol] 219 mg/dL High <150 mg/dL [facility] UA DIP, URINE (POC)on 2022 BILIRUBIN UA (POCT) Large Abnormal Negative [facility] CLARITY UA (POCT) Clear [facility] COLOR UA (POCT) Yellow [facility] GLUCOSE UA (POCT) Negative Negative mg/dL [facility] Hemoglobin Ql (U) Large Abnormal Negative [facility] KETONE UA (POCT) 15 mg/dL Abnormal Negative mg/dL [facility] LEUKOC[facility]TES UA (POCT) Large Abnormal Negative [facility] NITRITE UA (POCT) Negative Negative [facility] PH UA (POCT) 5.5 4.5 - 8.0 [facility] Protein Ql (U) >=300 Abnormal Negative mg/dL [facility] SPECIFIC GRAVITY UA (POCT) 1.025 1.005 - 1.030 [facility] UROBILINOGEN UA (POCT) 2.0 E.U./dL Abnormal Simin l E.U./dL [facility] CT UROGRAM WO/W IVCONon 06-13 Radiology Result ACTIONABLE Abnormal [facility] CT LUNG SCREEN WO IVCONon [facility] URINE CULTUREon 06-19-2023 Bacteria identified Cx Nom (U) No growth (<1,000 CFU/ml) [facility] UA DIP, URINE (POC)on 2022 BILIRUBIN UA (POCT) Large Abnormal Negative [facility] CLARITY UA (POCT) Cloudy [facility] COLOR UA (POCT) Red [facility] GLUCOSE UA (POCT) 250 mg/dL Abnormal Negative mg/dL [facility] Hemoglobin Ql (U) Large Abnormal Negative [facility] KETONE UA (POCT) 15 mg/dL Abnormal Negative mg/dL [facility] LEUKOCYTES UA (POCT) Large Abnormal Negative [facility] NITRITE UA (POCT) Positive Abnormal Negative [facility] PH UA (POCT) 5.0 4.5 - 8.0 [facility] Protein Ql (U) >=300 Abnormal Negative mg/dL [facility] SPECIFIC GRAVITY UA (POCT) 1.020 1.005 - 1.030 [facility] UROBILINOGEN UA (POCT) 2.0 E.U./dL Abnormal Simin l E.U./dL [facility] Basic metabolic 2000 panelon 06-02-2022 Anion gap [Moles/Vol] 10 mmol/L Normal 5-16 [facility] Comment on above: Order Comment: Speci men Type: BLOOD SPECIMEN Ordering Facility: [facility] Address: [address] [place] [address] Performed By: #### 2 4321-2 #### [facility] CLIA [id number] [address] [place] [address] [place] Calcium [Mass/Vol] 10.2 mg/dL Normal 8.5-10.5 [facility] Comment on above: Order Comment: Speci men Type: BLOOD SPECIMEN Ordering Facility: [facility] Address: [address] [place] [address] Performed By: #### 2 4321-2 #### [facility] CLIA [id number] [address] [place] [address] [place] Chloride [Moles/Vol] 108 mmol/L High 98-107 [facility] Comment on above: Order Comment: Speci men Type: BLOOD SPECIMEN Ordering Facility: [facility] Address: [address] [place] [address] Performed By: #### 2 4321-2 #### [facility] CLIA [id number] [address] [place] [address] [place] CO2 [Moles/Vol] 26 mmol/L Normal 21-32 [facility] Comment on above: Order Comment: Speci men Type: BLOOD SPECIMEN Ordering Facility: [facility] Address: [address] [place] [address] Performed By: #### 2 4321-2 #### [facility] CLIA [id number] [address] [place] [address] [place] Creatinine [Mass/Vol] 1.09 mg/dL Normal 0.50-1.40 [facility] Comment on above: Order Comment: Speci men Type: BLOOD SPECIMEN Ordering Facility: [facility] Address: [address] [place] [address] Result Comment: Yuli ents receiving either N-Acetylcysteine (NAC) or Metamizole prior to venipuncture, may have falsely depressed results. Performed By: #### 2 4321-2 #### [facility] CLIA [id number] [address] [place] [address] [place] ESTIMATED GLOMERULAR FILTRATION RATE 73 mL/min/1.73m??? Normal >=60 [facility] Comment on above: Order Comment: Norma rouse Type: BLOOD SPECIMEN Ordering Facility: [facility] Address: [address] [place] [address] Result Comment: Madeline mated Glomerular Filtration Rate (eGFR) is calculated using the 2020 CKD-EPI creatinine equation. This equation utilizes serum creatinine, sex, and age as parameters. The creatinine assay has traceable calibration to isotope dilution-mass spectrometry. Refer to KDIGO guidelines for clinical interpretation. In patients with unstable renal function, e.g. those with acute kidney injury, the eGFR may not accurately reflect actual GFR. Performed By: #### 2 4321-2 #### [facility] CLIA [id number] [address] [place] [address] [place] Glucose [Mass/Vol] 114 mg/dL High 70-100 [facility] Comment on above: Order Comment: Norma rouse Type: BLOOD SPECIMEN Ordering Facility: [facility] Address: [address] [place] [address] Result Comment: The [place] Diabetes Association (ADA) provides guidance for cutoff values for fasting glucose and random glucose. The ADA defines fasting as no caloric intake for at least 8 hours. Fasting plasma glucose results between 100 to 125 mg/dL indicate increased risk for diabetes (prediabetes). Fasting plasma glucose results greater than or equal to 126 mg/dL meet the criteria for diagnosis of diabetes. In the absence of unequivocal hyperglycemia, results should be confirmed by repeat testing. In a patient with classic symptoms of hyperglycemia or hyperglycemic crisis, random plasma glucose results greater than or equal to 200 mg/dL meet the criteria for diagnosis of diabetes. Reference: Standards of Medical Care in Diabetes 2016, [place] [employer]. Diabetes Care. 2016.39(Suppl 1). Results may be falsely elevated after the administration of Sulfapyridine. Results may be falsely depressed after the administration of Sulfasalazine. Performed By: #### 2 4321-2 #### [facility] CLIA [id number] [address] [place] [address] [place] Potassium [Moles/Vol] 3.8 mmol/L Normal 3.5-5.1 [facility] Comment on above: Order Comment: Speci men Type: BLOOD SPECIMEN Ordering Facility: [facility] Address: [address] [place] [address] Result Comment: Slig ht Hemolysis, Result may be affected. Performed By: #### 2 4321-2 #### [facility] CLIA [id number] [address] [place] [address] [place] Sodium [Moles/Vol] 144 mmol/L Normal 136-145 [facility] Comment on above: Order Comment: Speci men Type: BLOOD SPECIMEN Ordering Facility: [facility] Address: [address] [place] [address] Performed By: #### 2 4321-2 #### [facility] CLIA [id number] [address] [place] [address] [place] Urea nitrogen [Mass/Vol] 23 mg/dL Normal 7-26 [facility] Comment on above: Order Comment: Speci men Type: BLOOD SPECIMEN Ordering Facility: [facility] Address: [address] [place] [address] Performed By: #### 2 4321-2 #### [facility] CLIA [id number] [address] [place] [address] [place] CBC W Auto Differential pane l (Bld)on 06-02-2022 Basophils (Bld) [#/Vol] 0.05 10*3/uL Normal <0.11 [facility] Comment on above: Order Comment: Speci men Type: BLOOD SPECIMEN Ordering Facility: [facility] Address: [address] [place] [address] Performed By: #### 5 7021-8 #### [facility] CLIA [id number] [address] [place], [place] [address] [place] Basophils/100 WBC (Bld) 0.7 % Normal [facility] Comment on above: Order Comment: Speci men Type: BLOOD SPECIMEN Ordering Facility: [facility] Address: [address] [place] [address] Performed By: #### 5 7021-8 #### [facility] CLIA [id number] [address] [place] [address] [place] Differential cell count method Nom (Bld) Auto Normal [facility] Comment on above: Order Comment: Speci men Type: BLOOD SPECIMEN Ordering Facility: [facility] Address: [address] [place] [address] Performed By: #### 5 7021-8 #### [facility] CLIA [id number] [address] [place] [address] [place] Eosinophils (Bld) [#/Vol] 0.15 10*3/uL Normal <0.46 [facility] Comment on above: Order Comment: Speci men Type: BLOOD SPECIMEN Ordering Facility: [facility] Address: [address] [place] [address] Performed By: #### 5 7021-8 #### [facility] CLIA [id number] [address] [place] [address] [place] Eosinophils/100 WBC (Bld) 2.0 % Normal [facility] Comment on above: Order Comment: Speci men Type: BLOOD SPECIMEN Ordering Facility: [facility] Address: [address] [place] [address] Performed By: #### 5 7021-8 #### [facility] CLIA [id number] [address] [place] [address] [place] [place] Erythrocyte distribution width (RBC) [Ratio] 13.7 % Normal 11.5-15.0 [facility] Comment on above: Order Comment: Speci men Type: BLOOD SPECIMEN Ordering Facility: [facility] Address: [address] [place] [address] Performed By: #### 5 7021-8 #### [facility] CLIA [id number] [address] [place] [address] [place] Hematocrit (Bld) [Volume fraction] 47.9 % Normal 39.0-51.0 [facility] Comment on above: Order Comment: Speci men Type: BLOOD SPECIMEN Ordering Facility: [facility] Address: [address] [place] [address] Performed By: #### 5 7021-8 #### [facility] CLIA [id number] [address] [place] [address] [place] Hemoglobin (Bld) [Mass/Vol] 15.5 g/dL Normal 13.0-17.0 [facility] Comment on above: Order Comment: Speci men Type: BLOOD SPECIMEN Ordering Facility: [facility] Address: [address] [place] [address] Performed By: #### 5 7021-8 #### [facility] CLIA [id number] [address] [place] [address] [place] IMMATURE GRAN % 0.4 % Normal [facility] Comment on above: Order Comment: Speci men Type: BLOOD SPECIMEN Ordering Facility: [facility] Address: [address] [place] [address] Performed By: #### 5 7021-8 #### [facility] [place] [id number] [address] [place] [address] [place] IMMATURE GRAN ABS 0.03 k/uL Normal <0.10 [facility] Comment on above: Order Comment: Speci men Type: BLOOD SPECIMEN Ordering Facility: [facility] Address: [address] [place] [address] Performed By: #### 5 7021-8 #### [facility] [place] [id number] [address] [place] [address] [place] Lymphocytes (Bld) [#/Vol] 2.39 10*3/uL Normal 1.00-4.00 [facility] Comment on above: Order Comment: Speci men Type: BLOOD SPECIMEN Ordering Facility: [facility] Address: [address] [place] [address] Performed By: #### 5 7021-8 #### [facility] CLIA [id number] [address] [place] [address] [place] Lymphocytes/100 WBC (Bld) 31.9 % Normal [facility] Comment on above: Order Comment: Speci men Type: BLOOD SPECIMEN Ordering Facility: [facility] Address: [address] [place] [address] Performed By: #### 5 7021-8 #### [facility] CLIA [id number] [address] [place] [address] [place] MCH (RBC) [Entitic mass] 29.3 pg Normal 26.0-34.0 [facility] Comment on above: Order Comment: Speci men Type: BLOOD SPECIMEN Ordering Facility: [facility] Address: [address] [place] [address] Performed By: #### 5 7021-8 #### [facility] CLIA [id number] [address] [place] [place], [place] [address] [place] MCHC (RBC) [Mass/Vol] 32.4 g/dL Normal 30.5-36.0 [facility] Comment on above: Order Comment: Speci men Type: BLOOD SPECIMEN Ordering Facility: [facility] Address: [address] [place] [address] Performed By: #### 5 7021-8 #### [facility] CLIA [id number] [address] [place] [address] [place] MCV (RBC) [Entitic vol] 90.5 fL Normal 80.0-100.0 [facility] Comment on above: Order Comment: Speci men Type: BLOOD SPECIMEN Ordering Facility: [facility] Address: [address] [place] [address] Performed By: #### 5 7021-8 #### [facility] CLIA [id number] [address] [place] [address] [place] Monocytes (Bld) [#/Vol] 0.59 10*3/uL Normal <0.87 [facility] Comment on above: Order Comment: Speci men Type: BLOOD SPECIMEN Ordering Facility: [facility] Address: [address] [place], [place] [address] Performed By: #### 5 7021-8 #### [facility] CLIA [id number] [address] [place] [address] [place] Monocytes/100 WBC (Bld) 7.9 % Normal [facility] Comment on above: Order Comment: Speci men Type: BLOOD SPECIMEN Ordering Facility: [facility] Address: [address] [place], [place] [address] Performed By: #### 5 7021-8 #### [facility] CLIA [id number] [address] [place] [address] [place] Neutrophils (Bld) [#/Vol] 4.28 10*3/uL Normal 1.45-7.50 [facility] Comment on above: Order Comment: Speci men Type: BLOOD SPECIMEN Ordering Facility: [facility] Address: [address] [place], [place] [address] Performed By: #### 5 7021-8 #### [facility] CLIA [id number] [address] [place] [address] [place] Neutrophils/100 WBC (Bld) 57.1 % Normal [facility] Comment on above: Order Comment: Speci men Type: BLOOD SPECIMEN Ordering Facility: [facility] Address: [address] [place], [place] [address] Performed By: #### 5 7021-8 #### [facility] CLIA [id number] [address] [place] [address] [place] Nucleated RBC (Bld) [#/Vol] 10*3/uL Normal <0.01 [facility] Comment on above: Order Comment: Speci men Type: BLOOD SPECIMEN Ordering Facility: [facility] Address: [address] [place], [place] [address] Performed By: #### 5 7021-8 #### [facility] CLIA [id number] [address] [place], [place] [address] [place] Nucleated RBC/100 WBC (Bld) [Ratio] 0.0 /[address] [facility] Comment on above: Order Comment: Speci men Type: BLOOD SPECIMEN Ordering Facility: [facility] Address: [address] [place] [address] Performed By: #### 5 7021-8 #### [facility] CLIA [id number] [address] [place] [address] [place] Platelet mean volume (Bld) [Entitic vol] 8.7 fL Low 9.0-12.7 [facility] Comment on above: Order Comment: Speci men Type: BLOOD SPECIMEN Ordering Facility: [facility] Address: [address] [place] [address] Performed By: #### 5 7021-8 #### [facility] CLIA [id number] [address] [place] [address] [place] Platelets (Bld) [#/Vol] 178 10*3/uL Normal 150-400 [facility] Comment on above: Order Comment: Speci men Type: BLOOD SPECIMEN Ordering Facility: [facility] Address: [address] [place] [address] Performed By: #### 5 7021-8 #### [facility] CLIA [id number] [address] [place] [address] [place] RBC (Bld) [#/Vol] 5.29 10*6/uL Normal 4.20-6.00 [facility] Comment on above: Order Comment: Speci men Type: BLOOD SPECIMEN Ordering Facility: [facility] Address: [address] [place] [address] Performed By: #### 5 7021-8 #### [facility] CLIA [id number] [address] [place] [address] [place] WBC (Bld) [#/Vol] 7.49 10*3/uL Normal 3.70-11.00 [facility] Comment on above: Order Comment: Speci men Type: BLOOD SPECIMEN Ordering Facility: [facility] Address: [address] [place] [address] Performed By: #### 5 7021-8 #### [facility] CLIA [id number] [address] [place] [address] [place] HISTORY PHYSICALon HISTORY PHYSICAL HNO ID: [id number] Author: Pedrito Pitts MD Service: Vascular Surgery Author Type: Physician Type: HANDP Filed: 06/02/2022 8:49 AM Note Text: See HANDP, no change Plan: right leg angiogram with intervention Pedrito Pitts MD [facility] OPERATIVE NOon 06-02-2022 OPERATIVE NO HNO ID: [id number] Author: Pedrito Pitts MD Service: Vascular Surgery Author Type: Physician Type: Operative Report Filed: 06/02/2022 10:15 AM Note Text: OPERATIVE/PROCEDURE REPORT LOG ID: [id number] SURGERY/PROCEDURE DATE: 06/02/2022 INCISION/PROCEDURE START TIME: INCISION CLOSE/PROCEDURE END TIME: SURGEON(S)/PROCEDURA LIST(S) AND SHRINKING MACHINE OPERATOR(S): Surgeon(s) and Role: * Pedrito Pitts MD - Primary No Additional Staff SURGERY/PROCEDURE(S) : 1. Ultrasound-guided access retrograde left common femoral artery. 2. Angiogram with right lower extremity angiogram catheter placed into the third order popliteal artery. 3. Balloon angioplasty of the right common iliac artery with a 7 mm drug-coated balloon. Balloon angioplasty of the femoral artery with a 5 x 150 [place]. Stent the proximal to mid popliteal artery with a 6 x 40 [place] and drug-eluting stent 4. Closure with Vascade ANESTHESIA: Procedural Sedation SURGERY/PROCEDURE DETAILS: Patient brought to the operating room. Underwent appropriate timeout consent. Underwent sedation. Was prepped and draped in a sterile fashion. We did ultrasound-guided cyst retrograde left common femoral artery. Put a wire up into the aorta and put in a 6 Martiniquais sheath. We gave 5000 units of heparin. We did an aortogram that showed the moderate stenosis right common iliac artery. We got up and over the bifurcation image from the right iliac. Showed the common femoral artery through the profunda was widely patent. Proximal femoral and into the mid femoral with moderate stenosis. We then imaged further down and brought out a long 6 Martiniquais sheath. The popliteal artery had a subtotal occlusion. Below this there was runoff into 3 vessels. We did not image all the way to the foot though. We got the wire through the subtotal occlusion. We ballooned that also with a 5 mm [place] for over 2 minutes. We brought that 5 x 150 [place] back and ballooned it through the femoral artery for over 2-1/2 to 3 minutes. We then stented that popliteal lesion was just above the patellar with a 6 x 40 [place] drug-eluting stent. We post balloon with a 5 x 40 [place] over inflating. Completion angiogram showed the femoral to be improving better flow. And great flow through the stent. We pulled the sheath back and imaged above and ballooned that right common iliac artery with a 7 x 40 Medtronic drug-coated balloon for over 2-1/2 minutes. Completion was much improved and better flow. We removed out the sheath and put a shorter sheath. We deployed a Vascade with good hemostasis. Is brought to recovery then in stable condition. Sedation: This 71-year-old gentleman with moderate sedation given by Dr. Pedrito Pitts. He was monitored EKG blood pressure and pulse ox for over the 30 minutes of the procedure. See the EMR for the complete record. Fluoroscopy: Fluoroscopy: 8.6 minutes Dose: 311 mGy Contrast dye: 29 cc PRE-OP/PRE-PROCEDURE DIAGNOSIS: PAD with right leg claudication POST-OP/POST-PROCEDU RE DIAGNOSIS: The same ESTIMATED BLOOD LOSS: None SPECIMENS: None IMPLANTABLE DEVICES: Drug-eluting stent right popliteal artery DRAINS: None COMPLICATIONS: None SIGNATURE: Pedrito Pitts MD PATIENT NAME: Tracy Gorman DATE: June 02, 2022 TIME: 9:[address] [facility] NURSING PROGon 06-01-2022 NURSING PROG HNO ID: [id number] Author: Mary Anderson, GEOGRI Service: ? Author Type: Registered Nurse Type: Nursing Progress Note Filed: 06/01/2022 3:15 PM Note Text: PRE-PROCEDURE INSTRUCTIONS TO PREPARE FOR YOUR PROCEDURE: Your arrival time for your procedure is 0600. Do NOT eat any solid foods after MIDNIGHT the night prior to your procedure - this includes gum or mints. You can drink clear liquids* up until NPO, which is 2 hours before your arrival time. *Clear liquids = water, carbohydrate drink (sports drink that is clear or yellow in color), Ensure Pre-Surgery (given by KRISTIN or your DrKayley), fruit juice without pulp (apple/cranberry), clear tea, black coffee (no cream). NO ALCOHOL. Shower the morning of the procedure, put on clean clothes, and have clean sheets for your bed to help prevent infection after your procedure. Leave all valuables such as jewelry including rings, piercings, wallets, and purses at home. Wear comfortable, loose-fitting clothing. If you wear glasses or contacts, please bring a case. SPECIAL INSTRUCTIONS: If instructed, bring your first voided urine specimen with you. If you were provided skin preparation to use prior to your procedure, complete this as directed. If you were provided Ensure Pre-Surgery drink, you need to drink this at NPO. This should be consumed quickly (in less than 5 minutes, rather than sipped over time) If you use crutches or a walker, bring them with you. If you have a home CPAP/BIPAP machine, bring it with you. If you were instructed to complete a fleets enema or bowel prep, complete as directed. Bring copy of Living Will/Power of Pharmacy Data Analyst. Do not smoke or chew. If you use tobacco, quit or at least cut down before surgery. Do not smoke or chew after midnight the day before your surgery. This effects bleeding, infection, healing, and so much more. Do not take any Diet or Herbal Supplements 2 weeks prior to your surgery date. Please notify your physician if there is any change in your physical condition such as a cold, cough, fever, sore throat, or skin irritation near the surgical site. Visitors under the age of 14 are restricted in the Surgery Center. UPON ARRIVAL: Access to [facility]) is located on [address] [employer] parking is available for your convenience from 5am-5pm- there is a $5.00 charge for this service. Take the elevators directly inside the entrance to the 1st Floor Surgery Lobby. Sign in at the podium located to the left when you get off the elevators. A payment may be expected at the time of service. One visitor may come back to the preoperative area with you. The preoperative staff will be reviewing your medical history, please let them know if you prefer not to have a visitor with you during this time. Once you are ready for surgery, two visitors at a time are permitted in your preoperative room. Normal [facility] CBCon 02-20-2020 Erythrocyte distribution width (RBC) [Ratio] 14.8 % High 11-14.5 [facility] Comment on above: Order Comment: Campu s: M Performed By: #### L 200.17528 #### [facility] [address] [place] [address] Hematocrit (Bld) [Volume fraction] 47.0 % Normal 41.0-53.0 [facility] Comment on above: Order Comment: Campu s: M Performed By: #### L 200.12057 #### [facility] [address] [place] [address] Hemoglobin (Bld) [Mass/Vol] 14.9 g/dL Normal 13.5-17.5 [facility] Comment on above: Order Comment: Campu s: M Performed By: #### L 200.75740 #### [facility] [address] [place] [address] MCHC (RBC) [Mass/Vol] 31.7 g/dL Low 32.0-36.0 [facility] Comment on above: Order Comment: Campu s: M Performed By: #### L 200.14771 #### [facility] [address] [place] [address] MCV (RBC) [Entitic vol] 95.3 fL Normal 80.0-99.0 [facility] Comment on above: Order Comment: Campu s: M Performed By: #### L 200.89658 #### [facility] [address] [place] [address] Nucleated RBC/100 WBC (Bld) [Ratio] 0.0 % Normal Less than 1 [facility] Comment on above: Order Comment: Campu s: M Performed By: #### L 200.92131 #### [facility] [address] [place], [place] [id number] Platelet mean volume (Bld) [Entitic vol] 9.2 fL Low 9.4-12.4 [facility] Comment on above: Order Comment: Campu s: M Performed By: #### L 200.04043 #### [facility] [address] [place] [address] Platelets (Bld) [#/Vol] 133 K/CU MM Low 150-450 [facility] Comment on above: Order Comment: Campu s: M Performed By: #### L 200.03810 #### [facility] [address] [place] [address] RBC (Bld) [#/Vol] 4.93 M/CU MM Normal 4.50-6.00 [facility] Comment on above: Order Comment: Campu s: M Performed By: #### L 200.65492 #### [facility] [address] [place], [place] [id number] WBC (Bld) [#/Vol] 6.0 K/CUMM Normal 4.5-11.0 [facility] Comment on above: Order Comment: Campu s: M Performed By: #### L 200.89151 #### [facility] [address] [place] [address] GFR ESTon 02-20-2020 IF AMER Greater than 60 Normal [facility] Comment on above: Order Comment: Campu s: M Performed By: #### L 500.50536, L500.49610 #### [facility] [address] [place] [address] IF non-AFR AMER 58 ML/MIN Normal [facility] Comment on above: Order Comment: Heather s: M Performed By: #### L 500.59061, L500.63664 #### [facility] [address] [place] [address] OR.OPRPTon 02-20-2020 Operative Report Normal [facility] OR.OPRPT [facility] Patient Name: TRACY GORMAN [address] [place] [address] [place] Date of : [address] [address] Unit Number: [id number] Operative Report Patient Status: REG SD Attending Doctor: Pedrito Pitts MD Service Date: 02/20/20 1226 Operative Report Procedure Date: 02/20/20 Attending Physician: Pedrito Pitts MD Procedure: Preoperative Diagnosis: PAD with claudication Postoperative Diagnosis: Same Procedure Type: 1. Ultrasound-guided access retrograde left common femoral artery. 2. Aortogram with bilateral iliofemoral angiogram. Right lower extremity angiogram catheter placed into the popliteal artery. 3. Balloon angioplasty the right SFA into the popliteal with a 4 mm [place]. Post balloon with a 5 x 220 drug-coated balloon with 2 different inflations. 4. Closure with Vascade. Anesthesia: Sedation Complications: None Procedure Details: Patient brought to the operating room. Underwent the appropriate timeout consent. Underwent sedation. Prepped and draped in a sterile fashion. We did also guide access retrograde left common femoral artery. Put a Glidewire and then a 5 Martiniquais sheath. We got up and over the bifurcation. We then did an angiogram showing the right common femoral profunda was widely patent. Collateral flow filling the possible popliteal artery. Brought in a long 6 Martiniquais sheath gave 5000 units of heparin. Using a quick cross we got through the occlusion confirm her back into the [place] popliteal artery. We imaged from there and it showed the rest of the popliteal artery was widely patent. There is three-vessel runoff into the foot with the posterior tibial artery being the dominant vessel. We then brought it up balloon through the occlusion with a 4 x 200 [place] and inflated it from the proximal popliteal up to the common femoral artery, with 2 different inflations each for over a minute. We then brought in a 5 x 220 drug-coated balloon from the very proximal femoral artery all the way to the adductor inflated for over 2-1/2 minutes. We then advanced this down into the popliteal artery and inflated there for another 2 to 2-1/2 minutes. Completion was markedly improved with brisk flow through this. Some areas of dissection but no flow limiting areas. We then pulled the sheath back did an aortogram with bilateral iliofemoral imaging which showed some common iliac artery stenosis but good flow through it. We left this intact. We removed out the sheath put a shorter sheath and then deployed a Vascade with good hemostasis. He was then brought to recovery stable condition. Sedation: This 69-year-old gentleman underwent moderate sedation given by Dr. Pedrito Pitts. He was monitored EKG blood pressure and pulse ox for over the 30 minutes of the procedure. See the EMR for the complete record. Fluoroscopy: Fluoroscopy: 7.3 minutes Dose: 456 mGy Contrast dye: 26 cc Disclaimer This dictation was created using voice recognition software. Phonetic and/or minor grammatical errors may exist. eSign Date and Time Pedrito Pitts MD Verified/Reviewed by 02/20/20 1230 Normal [facility] RENALon 02-20-2020 Albumin [Mass/Vol] 4.0 g/dL Normal 3.2-5.0 [facility] Comment on above: Order Comment: Campu s: M Performed By: #### L 500.37558, L500.86577 #### [facility] [address] [place] [address] Anion gap [Moles/Vol] 5 mmol/L Normal 5-16 [facility] Comment on above: Order Comment: Campu s: M Performed By: #### L 500.99261, L500.64958 #### [facility] [address] [place] [address] Calcium [Mass/Vol] 9.5 mg/dL Normal 8.5-10.1 [facility] Comment on above: Order Comment: Campu s: M Performed By: #### L 500.38262, L500.83623 #### [facility] [address] [place] [address] Chloride [Moles/Vol] 109 mmol/L High 98-107 [facility] Comment on above: Order Comment: Campu s: M Performed By: #### L 500.55412, L500.75018 #### [facility] [address] [place] [address] CO2 [Moles/Vol] 26 mmol/L Normal 21-32 [facility] Comment on above: Order Comment: Campu s: M Performed By: #### L 500.26611, L500.36133 #### [facility] [place] [address] Creatinine [Mass/Vol] 1.240 mg/dL High 0.670-1.170 [facility] Comment on above: Order Comment: Campu s: M Result Comment: Yuli ents receiving either N-Acetylcysteine (NAC) or Metamizole prior to venipuncture, may have falsely depressed results. Performed By: #### L 500.38969, L500.70073 #### [facility] [address] [place] [address] Glucose [Mass/Vol] 113 mg/dL High 70-100 [facility] Comment on above: Order Comment: Campu s: M Result Comment: 70-1 00- Normal Fasting; 100-125 Impaired Fasting; greater than 126 on more than one result- Diabetes. ADA guidelines. Results may be falsely elevated after the administration of Sulfapyridine. Results may be falsely depressed after the administration of Sulfasalazine. Performed By: #### L 500.99821, L500.09432 #### [facility] [place] [address] Phosphate [Mass/Vol] 2.8 mg/dL Normal 2.5-4.9 [facility] Comment on above: Order Comment: Campu s: M Performed By: #### L 500.79299, L500.45480 #### [facility] [address] [place] [address] Potassium [Moles/Vol] 4.4 mmol/L Normal 3.5-5.1 [facility] Comment on above: Order Comment: Campu s: M Performed By: #### L 500.76568, L500.95973 #### [facility] [place] [address] Sodium [Moles/Vol] 139 mmol/L Normal 136-145 [facility] Comment on above: Order Comment: Campu s: M Performed By: #### L 500.27897, L500.10432 #### [facility] [address] [place] [address] Urea nitrogen [Mass/Vol] 28 mg/dL High 7-26 [facility] Comment on above: Order Comment: Campu s: M Performed By: #### L 500.42554, L500.36722 #### [facility] [address] [place] [address] Urea nitrogen/Creatinine [Mass ratio] 22 mg/mg Normal 15-24 [facility] Comment on above: Order Comment: Campu s: M Performed By: #### L 500.96774, L500.02624 #### [facility] [address] [place] [address] Vital Signs Date Time Vital Sign Value Performing Clinician Ray euceda 03-19-2025 08:51-0400 Body height 186.[address] Rome Gomez MD Work Phone: [facility] 03-19-2025 08:51-0400 Body mass index (BMI) [Ratio] 24 kg/m2 Dr. Rome Gomez MD Work Phone: [facility] 03-19-2025 08:51-0400 Body weight 83.[address] Rome Gomez MD Work Phone: [facility] 03-19-2025 08:51-0400 Diastolic blood pressure 101 mm[Hg] Dr. Rome Gomez MD Work Phone: [facility] 03-19-2025 08:51-0400 Heart rate 61 /min Dr. Rome Gomez MD Work Phone: [facility] 03-19-2025 08:51-0400 Respiratory rate 18 /min Dr. Rome Gomez MD Work Phone: [facility] 03-19-2025 08:51-0400 SaO2% (BldA) [Mass fraction] 98 % Dr. Rome Gomez MD Work Phone: [facility] 03-19-2025 08:51-0400 Systolic blood pressure 179 mm[Hg] Dr. Rome Gomez MD Work Phone: [facility] 01-26-2025 14:26-0400 Body height 185.4 cm Reji Smith MD Work Phone: [facility] 01-26-2025 14:26-0400 Body mass index (BMI) [Ratio] 25.01 kg/m2 Reji Smith MD Work Phone: [facility] 01-26-2025 14:26-0400 Body weight 86 kg Reji Smith MD Work Phone: [facility] 01-26-2025 14:26-0400 Diastolic blood pressure 62 mm[Hg] Reji Smith MD Work Phone: [facility] 01-26-2025 14:26-0400 Heart rate 67 /min Reji Smith MD Work Phone: [facility] 01-26-2025 14:26-0400 SaO2% (BldA) [Mass fraction] 98 % Reji Smith MD Work Phone: [facility] 01-26-2025 14:26-0400 Systolic blood pressure 106 mm[Hg] Reji Smith MD Work Phone: [facility] 01-23-2025 09:08-0400 Diastolic blood pressure 84 mm[Hg] Cleopatra Podlogar GLASS SILVERER.LINEN ROOM SUPERVISOR Work Phone: [facility] Comment on above: JAKE BP average 01-23-2025 09:08-0400 Heart rate 57 /min Cleopatra Podlogar GLASS SILVERER.LINEN ROOM SUPERVISOR Work Phone: [facility] 01-23-2025 09:08-0400 Systolic blood pressure 131 mm[Hg] Cleopatra Podlogar GLASS SILVERER.LINEN ROOM SUPERVISOR Work Phone: [facility] Comment on above: JAKE BP average 01-23-2025 08:38-0400 Body mass index (BMI) [Ratio] 24.96 kg/m2 Cleopatra Podlogar GLASS SILVERER.LINEN ROOM SUPERVISOR Work Phone: [facility] 01-23-2025 08:38-0400 Body weight 85.82 kg Cleopatra Podlogar GLASS SILVERER.LINEN ROOM SUPERVISOR Work Phone: [facility] 01-23-2025 08:38-0400 Respiratory rate 18 /min Cleopatra Podlogar GLASS SILVERER.LINEN ROOM SUPERVISOR Work Phone: [facility] 01-23-2025 08:38-0400 SaO2% (BldA) [Mass fraction] 96 % Cleopatra Podlogar GLASS SILVERER.LINEN ROOM SUPERVISOR Work Phone: [facility] 11-23-2024 09:14-0400 Diastolic blood pressure 90 mm[Hg] Tami Anne Jr., MD Work Phone: [facility] 11-23-2024 09:14-0400 Heart rate 65 /min Tami Anne Jr., MD Work Phone: [facility] 11-23-2024 09:14-0400 SaO2% (BldA) [Mass fraction] 97 % Tami Anne Jr., MD Work Phone: [facility] 11-23-2024 09:14-0400 Systolic blood pressure 142 mm[Hg] Tami Anne Jr., MD Work Phone: [facility] 08-31-2024 08:45-0500 Body mass index (BMI) [Ratio] 25.23 kg/m2 [facility] Work Phone: [facility] 08-31-2024 08:45-0500 Body temperature 98.2 [degF] [facility] Work Phone: [facility] 08-31-2024 08:45-0500 Body weight 86.73 kg [facility] Work Phone: [facility] 08-31-2024 08:45-0500 Diastolic blood pressure 90 mm[Hg] [facility] Work Phone: [facility] 08-31-2024 08:45-0500 Heart rate 61 /min [facility] Work Phone: [facility] 08-31-2024 08:45-0500 Respiratory rate 16 /min [facility] Work Phone: [facility] 08-31-2024 08:45-0500 SaO2% (BldA) [Mass fraction] 99 % [facility] Work Phone: [facility] 08-31-2024 08:45-0500 Systolic blood pressure 139 mm[Hg] [facility] Work Phone: [facility] 08-24-2024 08:19-0500 Body mass index (BMI) [Ratio] 25.12 kg/m2 [facility] Work Phone: [facility] 08-24-2024 08:19-0500 Body temperature 98.2 [degF] [facility] Work Phone: [facility] 08-24-2024 08:19-0500 Body weight 86.36 kg [facility] Work Phone: [facility] 08-24-2024 08:19-0500 Diastolic blood pressure 87 mm[Hg] [facility] Work Phone: [facility] 08-24-2024 08:19-0500 Heart rate 65 /min [facility] Work Phone: [facility] 08-24-2024 08:19-0500 Respiratory rate 16 /min [facility] Work Phone: [facility] 08-24-2024 08:19-0500 SaO2% (BldA) [Mass fraction] 99 % [facility] Work Phone: [facility] 08-24-2024 08:19-0500 Systolic blood pressure 126 mm[Hg] [facility] Work Phone: [facility] 08-17-2024 08:18-0500 Body mass index (BMI) [Ratio] 24.87 kg/m2 [facility] Work Phone: [facility] 08-17-2024 08:18-0500 Body temperature 96.8 [degF] [facility] Work Phone: [facility] 08-17-2024 08:18-0500 Body weight 85.5 kg [facility] Work Phone: [facility] 08-17-2024 08:18-0500 Diastolic blood pressure 97 mm[Hg] [facility] Work Phone: [facility] 08-17-2024 08:18-0500 Heart rate 61 /min [facility] Work Phone: [facility] 08-17-2024 08:18-0500 Respiratory rate 16 /min [facility] Work Phone: [facility] 08-17-2024 08:18-0500 SaO2% (BldA) [Mass fraction] 99 % [facility] Work Phone: [facility] 08-17-2024 08:18-0500 Systolic blood pressure 162 mm[Hg] [facility] Work Phone: [facility] 07-26-2024 08:33-0500 Body mass index (BMI) [Ratio] 24.7 kg/m2 Lambert Gomez MD Work Phone: [facility] 07-26-2024 08:33-0500 Body weight 84.91 kg Lambert Gomez MD Work Phone: [facility] 07-26-2024 08:33-0500 Diastolic blood pressure 84 mm[Hg] Lambert Gomez MD Work Phone: [facility] 07-26-2024 08:33-0500 Heart rate 60 /min Lambert Gomez MD Work Phone: [facility] 07-26-2024 08:33-0500 Respiratory rate 16 /min Lambert Gomez MD Work Phone: [facility] 07-26-2024 08:33-0500 SaO2% (BldA) [Mass fraction] 99 % Lambert Gomez MD Work Phone: [facility] 07-26-2024 08:33-0500 Systolic blood pressure 126 mm[Hg] Lambert Gomez MD Work Phone: [facility] 06-27-2024 09:17-0400 Body mass index (BMI) [Ratio] 25.13 kg/m2 Sheela [place] GLASS SILVERER.LINEN ROOM SUPERVISOR Work Phone: [facility] 06-27-2024 09:17-0400 Body weight 86.4 kg Sheela Hidalgoter GLASS SILVERER.LINEN ROOM SUPERVISOR Work Phone: [facility] 06-27-2024 09:17-0400 Diastolic blood pressure 88 mm[Hg] Sheela [place] GLASS SILVERER.LINEN ROOM SUPERVISOR Work Phone: [facility] 06-27-2024 09:17-0400 Heart rate 65 /min Sheela [place] GLASS SILVERER.LINEN ROOM SUPERVISOR Work Phone: [facility] 06-27-2024 09:17-0400 SaO2% (BldA) [Mass fraction] 98 % Sheela Hidalgoter GLASS SILVERER.LINEN ROOM SUPERVISOR Work Phone: [facility] 06-27-2024 09:17-0400 Systolic blood pressure 138 mm[Hg] Sheela [place] GLASS SILVERER.LINEN ROOM SUPERVISOR Work Phone: [facility] 05-25-2024 08:09-0400 Diastolic blood pressure 102 mm[Hg] Tami Anne Jr., MD Work Phone: [facility] 05-25-2024 08:09-0400 Heart rate 60 /min Tami Anne Jr., MD Work Phone: [facility] 05-25-2024 08:09-0400 SaO2% (BldA) [Mass fraction] 98 % Tami Anne Jr., MD Work Phone: [facility] 05-25-2024 08:09-0400 Systolic blood pressure 164 mm[Hg] Tami Anne Jr., MD Work Phone: [facility] 01-26-2024 08:43-0400 Body mass index (BMI) [Ratio] 24.65 kg/m2 [facility] Work Phone: [facility] 01-26-2024 08:43-0400 Body temperature 96.8 [degF] [facility] Work Phone: [facility] 01-26-2024 08:43-0400 Body weight 84.73 kg [facility] Work Phone: [facility] 01-26-2024 08:43-0400 Diastolic blood pressure 88 mm[Hg] [facility] Work Phone: [facility] 01-26-2024 08:43-0400 Heart rate 65 /min [facility] Work Phone: [facility] 01-26-2024 08:43-0400 Respiratory rate 16 /min [facility] Work Phone: [facility] 01-26-2024 08:43-0400 SaO2% (BldA) [Mass fraction] 98 % [facility] Work Phone: [facility] 01-26-2024 08:43-0400 Systolic blood pressure 150 mm[Hg] [facility] Work Phone: [facility] 01-24-2024 09:35-0400 Diastolic blood pressure 82 mm[Hg] Lambert Gomez MD Work Phone: [facility] Comment on above: recheck 01-24-2024 09:35-0400 Systolic blood pressure 130 mm[Hg] Lambert Gomez MD Work Phone: [facility] Comment on above: recheck 01-24-2024 08:31-0400 Body mass index (BMI) [Ratio] 24.7 kg/m2 Lambert Gomez MD Work Phone: [facility] 01-24-2024 08:31-0400 Body weight 84.91 kg Lambert Gomez MD Work Phone: [facility] 01-24-2024 08:31-0400 Heart rate 63 /min Lambert Gomez MD Work Phone: [facility] 01-24-2024 08:31-0400 Respiratory rate 16 /min Lambert Gomez MD Work Phone: [facility] 01-24-2024 08:31-0400 SaO2% (BldA) [Mass fraction] 98 % Lambert Gomez MD Work Phone: [facility] 01-19-2024 08:42-0400 Body mass index (BMI) [Ratio] 24.65 kg/m2 [facility] Work Phone: [facility] 01-19-2024 08:42-0400 Body temperature 97.7 [degF] [facility] Work Phone: [facility] 01-19-2024 08:42-0400 Body weight 84.73 kg [facility] Work Phone: [facility] 01-19-2024 08:42-0400 Diastolic blood pressure 84 mm[Hg] [facility] Work Phone: [facility] 01-19-2024 08:42-0400 Heart rate 63 /min [facility] Work Phone: [facility] 01-19-2024 08:42-0400 Respiratory rate 16 /min [facility] Work Phone: [facility] 01-19-2024 08:42-0400 SaO2% (BldA) [Mass fraction] 97 % [facility] Work Phone: [facility] 01-19-2024 08:42-0400 Systolic blood pressure 157 mm[Hg] [facility] Work Phone: [facility] 01-12-2024 08:47-0400 Body temperature 97 [degF] [facility] Work Phone: [facility] 01-12-2024 08:47-0400 Diastolic blood pressure 85 mm[Hg] [facility] Work Phone: [facility] 01-12-2024 08:47-0400 Heart rate 69 /min [facility] Work Phone: [facility] 01-12-2024 08:47-0400 Respiratory rate 18 /min [facility] Work Phone: [facility] 01-12-2024 08:47-0400 Systolic blood pressure 134 mm[Hg] [facility] Work Phone: [facility] 11-04-2023 14:10-0500 Diastolic blood pressure 88 mm[Hg] Tami Anne Jr., MD Work Phone: [facility] 11-04-2023 14:10-0500 Heart rate 69 /min Tami Anne Jr., MD Work Phone: [facility] 11-04-2023 14:10-0500 SaO2% (BldA) [Mass fraction] 99 % Tami Anne Jr., MD Work Phone: [facility] 11-04-2023 14:10-0500 Systolic blood pressure 124 mm[Hg] Tami Anne Jr., MD Work Phone: [facility] 10-29-2023 08:38-0500 Body temperature 97.2 [degF] [facility] Work Phone: [facility] 10-29-2023 08:38-0500 Body weight 87.91 kg [facility] Work Phone: [facility] 10-29-2023 08:38-0500 Diastolic blood pressure 94 mm[Hg] [facility] Work Phone: [facility] 10-29-2023 08:38-0500 Heart rate 85 /min [facility] Work Phone: [facility] 10-29-2023 08:38-0500 Respiratory rate 18 /min [facility] Work Phone: [facility] 10-29-2023 08:38-0500 SaO2% (BldA) [Mass fraction] 97 % [facility] Work Phone: [facility] 10-29-2023 08:38-0500 Systolic blood pressure 161 mm[Hg] [facility] Work Phone: [facility] 10-22-2023 08:56-0500 Body temperature 97.3 [degF] [facility] Work Phone: [facility] 10-22-2023 08:56-0500 Body weight 87.82 kg [facility] Work Phone: [facility] 10-22-2023 08:56-0500 Diastolic blood pressure 98 mm[Hg] [facility] Work Phone: [facility] 10-22-2023 08:56-0500 Heart rate 61 /min [facility] Work Phone: [facility] 10-22-2023 08:56-0500 Respiratory rate 18 /min [facility] Work Phone: [facility] 10-22-2023 08:56-0500 Systolic blood pressure 159 mm[Hg] [facility] Work Phone: [facility] 10-15-2023 08:46-0500 Body temperature 96.8 [degF] [facility] Work Phone: [facility] 10-15-2023 08:46-0500 Body weight 87.73 kg [facility] Work Phone: [facility] 10-15-2023 08:46-0500 Diastolic blood pressure 107 mm[Hg] [facility] Work Phone: [facility] 10-15-2023 08:46-0500 Heart rate 68 /min [facility] Work Phone: [facility] 10-15-2023 08:46-0500 Respiratory rate 18 /min [facility] Work Phone: [facility] 10-15-2023 08:46-0500 SaO2% (BldA) [Mass fraction] 99 % [facility] Work Phone: [facility] 10-15-2023 08:46-0500 Systolic blood pressure 172 mm[Hg] [facility] Work Phone: [facility] 08-04-2023 12:20-0500 Diastolic blood pressure 98 mm[Hg] Tami Anne Jr., MD Work Phone: [facility] 08-04-2023 12:20-0500 Heart rate 77 /min Tami Anne Jr., MD Work Phone: [facility] 08-04-2023 12:20-0500 SaO2% (BldA) [Mass fraction] 98 % Tami Anne Jr., MD Work Phone: [facility] 08-04-2023 12:20-0500 Systolic blood pressure 152 mm[Hg] Tami Anne Jr., MD Work Phone: [facility] 07-26-2023 08:29-0500 Body weight 85.19 kg Lambert Gomez MD Work Phone: [facility] 07-26-2023 08:29-0500 Diastolic blood pressure 74 mm[Hg] Lambert Gomez MD Work Phone: [facility] 07-26-2023 08:29-0500 Heart rate 61 /min Lambert Gomez MD Work Phone: [facility] 07-26-2023 08:29-0500 Respiratory rate 16 /min Lambert Gomez MD Work Phone: [facility] 07-26-2023 08:29-0500 SaO2% (BldA) [Mass fraction] 93 % Lambert Gomez MD Work Phone: [facility] 07-26-2023 08:29-0500 Systolic blood pressure 122 mm[Hg] Lambert Gomez MD Work Phone: [facility] 07-19-2023 10:46-0500 Body height 185.4 cm Pst 1 [facility] 07-19-2023 10:46-0500 Body temperature 97 [degF] [facility] 07-19-2023 10:46-0500 Body weight 83.92 kg Pst 1 [facility] 07-19-2023 10:46-0500 Diastolic blood pressure 86 mm[Hg] Pst 1 [facility] 07-19-2023 10:46-0500 Heart rate 67 /min Pst 1 [facility] 07-19-2023 10:46-0500 Respiratory rate 18 /min Pst 1 [facility] 07-19-2023 10:46-0500 SaO2% (BldA) [Mass fraction] 98 % Pst 1 [facility] 07-19-2023 10:46-0500 Systolic blood pressure 138 mm[Hg] Pst 1 [facility] 07-07-2023 12:30-0400 Diastolic blood pressure 96 mm[Hg] Tami Anne Jr., MD Work Phone: [facility] 07-07-2023 12:30-0400 Heart rate 111 /min Tami Anne Jr., MD Work Phone: [facility] 07-07-2023 12:30-0400 SaO2% (BldA) [Mass fraction] 82 % Tami Anne Jr., MD Work Phone: [facility] 07-07-2023 12:30-0400 Systolic blood pressure 140 mm[Hg] Tami Anne Jr., MD Work Phone: [facility] 06-23-2023 08:52-0400 Body weight 84.32 kg Rachael English APRN.LINEN ROOM SUPERVISOR Work Phone: [facility] 06-23-2023 08:52-0400 Diastolic blood pressure 89 mm[Hg] Rachael English APRN.LINEN ROOM SUPERVISOR Work Phone: [facility] 06-23-2023 08:52-0400 Heart rate 60 /min Rachael English APRN.LINEN ROOM SUPERVISOR Work Phone: [facility] 06-23-2023 08:52-0400 SaO2% (BldA) [Mass fraction] 98 % Rachael English APRN.LINEN ROOM SUPERVISOR Work Phone: [facility] 06-23-2023 08:52-0400 Systolic blood pressure 139 mm[Hg] Rachael English APRN.LINEN ROOM SUPERVISOR Work Phone: [facility] 01-22-2023 08:28-0400 Body weight 85 kg Lambert Gomez MD Work Phone: [facility] 01-22-2023 08:28-0400 Diastolic blood pressure 84 mm[Hg] Lambert Gomez MD Work Phone: [facility] 01-22-2023 08:28-0400 Heart rate 62 /min Lambert Gomez MD Work Phone: [facility] 01-22-2023 08:28-0400 Respiratory rate 18 /min Lambert Gomez MD Work Phone: [facility] 01-22-2023 08:28-0400 SaO2% (BldA) [Mass fraction] 97 % Lambert Gomez MD Work Phone: [facility] 01-22-2023 08:28-0400 Systolic blood pressure 128 mm[Hg] Lambert Gomez MD Work Phone: [facility] 08-27-2022 13:21-0500 Body weight 86.18 kg Leia Colin PA-C Work Phone: [facility] 08-27-2022 13:21-0500 Diastolic blood pressure 62 mm[Hg] Leia Colin PA-C Work Phone: [facility] 08-27-2022 13:21-0500 Heart rate 79 /min Leia Colin PA-C Work Phone: [facility] 08-27-2022 13:21-0500 Respiratory rate 19 /min Leia Colin PA-C Work Phone: [facility] 08-27-2022 13:21-0500 SaO2% (BldA) [Mass fraction] 97 % Leia Colin PA-C Work Phone: [facility] 08-27-2022 13:21-0500 Systolic blood pressure 122 mm[Hg] Leia Colin PA-C Work Phone: [facility] 08-10-2022 09:59-0500 Diastolic blood pressure 86 mm[Hg] Cleopatra Podlogar GLASS SILVERER.LINEN ROOM SUPERVISOR Work Phone: [facility] 08-10-2022 09:59-0500 Heart rate 57 /min Cleopatra Podlogar GLASS SILVERER.LINEN ROOM SUPERVISOR Work Phone: [facility] 08-10-2022 09:59-0500 Systolic blood pressure 129 mm[Hg] Cleopatra Podlogar GLASS SILVERER.LINEN ROOM SUPERVISOR Work Phone: [facility] 08-10-2022 09:38-0500 Body weight 86.91 kg Cleopatra Podlogar GLASS SILVERER.LINEN ROOM SUPERVISOR Work Phone: [facility] 08-10-2022 09:38-0500 Respiratory rate 18 /min Cleopatra Podlogar GLASS SILVERER.LINEN ROOM SUPERVISOR Work Phone: [facility] 08-10-2022 09:38-0500 SaO2% (BldA) [Mass fraction] 97 % Cleopatra Podlogar GLASS SILVERER.LINEN ROOM SUPERVISOR Work Phone: [facility] 01-20-2022 15:57-0400 Body weight 87.36 kg Lambert Gomez MD Work Phone: [facility] 01-20-2022 15:57-0400 Diastolic blood pressure 84 mm[Hg] Lambert Gomez MD Work Phone: [facility] 01-20-2022 15:57-0400 Heart rate 64 /min Lambert Gomez MD Work Phone: [facility] 01-20-2022 15:57-0400 Respiratory rate 16 /min Lambert Gomez MD Work Phone: [facility] 01-20-2022 15:57-0400 SaO2% (BldA) [Mass fraction] 96 % Lambert Gomez MD Work Phone: [facility] 01-20-2022 15:57-0400 Systolic blood pressure 132 mm[Hg] Lambert Gomez MD Work Phone: [facility] Encounters Encounter Date Encounter Type Care Provider Facility Start: 04-16-2025 [facility] Facility :[facility] Start: 04-12-2025 End: 04-12-2025 Nursing evaluation of patient and report Nurse Yvonne Higgins Work Phone: Urology Comment on above: Malignant neoplasm o f urinary bladder, unspecified site (HCC) (Primary Dx) Start: 04-12-2025 End: 04-12-2025 ambulatory LAMBERT GOMEZ Facility:[facility] Start: 04-11-2025 End: 04-11-2025 ambulatory Ruth Mckeon MA [facility] Start: 04-11-2025 End: 04-11-2025 Patient encounter procedure Ruth Mckeon MA [facility] Comment on above: Population Health Na vigation Outreach (ACO OSCAR ISAACSA ) Start: 04-05-2025 End: 04-05-2025 Nursing evaluation of patient and report Nurse Casiel Higgins Work Phone: Urology Comment on above: Malignant neoplasm o f urinary bladder, unspecified site (HCC) (Primary Dx) Start: 04-05-2025 End: 04-05-2025 [facility] Start: 03-29-2025 End: 03-31-2025 Evaluation and management of inpatient PEDRITO PITTS MD [facility] Start: 03-23-2025 End: 03-27-2025 Telephone encounter Tami Anne MD Work Phone: Urology Comment on above: BCG Question, Vascul ar surgery Start: 03-23-2025 ambulatory LAMBERT GOMEZ MD Facility:[facility] Start: 03-22-2025 End: 03-22-2025 Nursing evaluation of patient and report Nurse Casiel Higgins Mc Work Phone: Urology Comment on above: Screening for genito urinary condition (Primary Dx); Malignant neoplasm of urinary bladder, unspecified site (HCC) Start: 03-22-2025 End: 03-22-2025 ambulatory LAMBERT GOMEZ Facility:[facility] Start: 03-20-2025 End: 03-20-2025 ambulatory Tami Anne MD Work Phone: Urology Comment on above: BCG instructions Start: 03-20-2025 End: 03-20-2025 E-mail encounter from caregiver Tami Anne Jr., MD Work Phone: Urology Start: 03-19-2025 End: 03-19-[address] Tami Seo MD -[facility] Work Phone: Start: 03-19-2025 End: 03-19-[address] Rome Gomez MD Work Phone: -[facility] Start: 02-22-2025 End: 02-22-[address] Rome Gomez MD Work Phone: [facility] Work Phone: Start: 02-22-2025 End: 02-22-[address] Pedrito Pitts MD -[facility] Work Phone: Start: 02-22-2025 End: 02-22-2025 ambulatory Rome Gomez Facility:[facility] Start: 02-01-2025 End: 02-01-2025 ambulatory TAMI ANNE JR Facility:[facility] Start: 01-26-2025 End: 01-26-2025 Office outpatient visit 25 minutes Reji Smith MD Work Phone: [facility] [place] Comment on above: Fatigue, unspecified type (Primary Dx); Neuropathy, arm, left; Type 2 diabetes mellitus with diabetic chronic kidney disease, unspecified CKD stage, unspecified whether alf insulin use (HCC); Abnormal EKG Start: 01-26-2025 End: 01-26-2025 ambulatory LAMBERT GOMEZ Facility:[facility] Start: 01-26-2025 End: 01-26-2025 Follow-up encounter Madie Costello LPN [facility] [place] Start: 01-26-2025 End: 01-26-2025 Telephone encounter Lambert Gomez MD Work Phone: [facility] Comment on above: Patient Question Start: 01-23-2025 End: 01-23-2025 Patient encounter procedure Cleopatra Greenwood APRN.CNP Work Phone: [facility] Comment on above: Prediabetes (Primary Dx); Benign prostatic hyperplasia without lower urinary tract symptoms; Mixed hyperlipidemia; Primary hypertension; Malignant neoplasm of urinary bladder, unspecified site (HCC) Start: 01-23-2025 End: 01-23-2025 ambulatory CLEOPATRA PODLOGCHASIDY Facility:[facility] Start: 01-19-2025 End: 01-19-2025 Telephone encounter Tami Anne MD Work Phone: [facility] Comment on above: Appointment Start: 01-19-2025 End: 01-19-2025 ambulatory TAMI ANNE JR Facility:[facility] Start: 01-17-2025 End: 01-17-2025 ambulatory Ruth Mckeon MA [facility] Start: 01-17-2025 End: 01-17-2025 Patient encounter procedure Ruth Mckeon MA [facility] Comment on above: Population Health Na vigation Outreach (NATHANAEL TURNER MEENU PCSA ) Start: 01-05-2025 End: 01-05-2025 ambulatory LAMBERT GOMEZ Facility:[facility] Start: 12-26-2024 Preprocedural examination done Ruth Mckeon MA [facility] Work Phone: Start: 12-26-2024 Encounter for other preprocedural examination LAMBERT GOMEZ [facility] Start: 11-23-2024 End: 11-23-2024 Patient encounter procedure Tami Anne MD Work Phone: [facility] Comment on above: Malignant neoplasm o f urinary bladder, unspecified site (HCC) (Primary Dx) Start: 11-23-2024 End: 11-23-2024 ambulatory LAMBERT GOMEZ Facility:[facility] Start: 11-22-2024 End: 11-22-2024 E-mail encounter from caregiver Tami Anne Jr., MD Work Phone: [facility] Start: 11-22-2024 End: 11-22-2024 Patient encounter procedure Tami Anne MD Work Phone: [facility] Comment on above: upcoming appointment Start: 11-15-2024 End: 11-15-[address] Rome Gomez MD Work Phone: [facility] Work Phone: Start: 11-15-2024 End: 11-15-[address] Tania Ortiz DO -Laboratory, Phy Office 3rd Flr Start: 11-15-2024 End: 11-15-2024 ambulatory Rome Gomez Facility:[facility] Start: 08-31-2024 End: 08-31-2024 ambulatory Bed 1 [facility] Work Phone: Hematology/Oncology Comment on above: Malignant neoplasm o f other specified sites of bladder (HCC) (Primary Dx) Start: 08-24-2024 End: 08-24-2024 ambulatory Bed 1 [facility] Work Phone: Hematology/Oncology Comment on above: Malignant neoplasm o f urinary bladder, unspecified site (HCC) (Primary Dx) Start: 08-17-2024 End: 08-17-2024 ambulatory Bed 1 [facility] Work Phone: Hematology/Oncology Comment on above: Malignant neoplasm o f urinary bladder, unspecified site (HCC) (Primary Dx) Start: 07-26-2024 End: 07-26-2024 ambulatory LAMBERT GOMEZ Facility:[facility] Start: 07-26-2024 End: 07-26-2024 ambulatory LAMBERT GOMEZ Facility:[facility] Start: 07-26-2024 End: 07-26-2024 Patient encounter procedure Lambert Gomez MD Work Phone: [facility] Comment on above: Medicare annual well ness visit, subsequent (Primary Dx); Primary hypertension; Mixed hyperlipidemia; Prediabetes; Immunodeficiency (HCC); S/P allogeneic bone marrow transplant (HCC); Benign prostatic hyperplasia without lower urinary tract symptoms; Stage 3 chronic kidney disease, unspecified whether stage 3a or 3b CKD (HCC); Atypical chronic myeloid leukemia, 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, in remission (HCC); Screening for depression; Encounter for screening examination for other mental health and behavioral disorders Start: 06-27-2024 End: 06-27-2024 Patient encounter procedure Sheela Chuy YOO Work Phone: Pulmonary Medicine Comment on above: Lung nodules (Primar y Dx); Encounter for screening for malignant neoplasm of lung; Tobacco use Start: 06-27-2024 End: 06-27-2024 ambulatory UNKNOWN PROVIDER Facility:[facility] Start: 06-27-2024 End: 06-27-2024 Subsequent hospital visit by physician Ct [facility] Comment on above: Encounter for screen ing for malignant neoplasm of lung [Z12.2] Start: 05-25-2024 End: 05-25-2024 E-mail encounter from caregiver Tami Anne Jr., MD Work Phone: [facility] Start: 05-25-2024 End: 05-25-2024 Telephone encounter Tami Anne MD Work Phone: [facility] Comment on above: Orders Start: 05-25-2024 End: 05-25-2024 Patient encounter procedure Tami Anne MD Work Phone: [facility] Comment on above: Malignant neoplasm o f urinary bladder, unspecified site (HCC) (Primary Dx) Start: 05-25-2024 End: 05-25-2024 ambulatory Tami Anne MD Work Phone: [facility] Comment on above: BCG treatments Start: 05-23-2024 End: 05-23-2024 E-mail encounter from caregiver Tami Anne Jr., MD Work Phone: Urology Start: 05-23-2024 End: 05-23-2024 Patient encounter procedure Tami Anne MD Work Phone: Urology Comment on above: upcoming appointment Start: 02-07-2024 Refill Lambert Gomez MD Work Phone: [facility] [place] Comment on above: Refill Request Start: 01-26-2024 End: 01-26-2024 ambulatory Bed 1 [facility] Work Phone: Hematology/Oncology Comment on above: Malignant neoplasm o f urinary bladder, unspecified site (HCC) (Primary Dx) Start: 01-24-2024 End: 01-24-2024 Patient encounter procedure Lambert Gomez MD Work Phone: [facility] [place] Comment on above: Primary hypertension (Primary Dx); Mixed hyperlipidemia; Stage 3a chronic kidney disease (HCC); Prediabetes; Malignant neoplasm of urinary bladder, unspecified site (HCC); Normocytic anemia due to blood loss; CML (chronic myeloid leukemia) (HCC); MPN (myeloproliferative neoplasm) (HCC); S/P allogeneic bone marrow transplant (HCC); Immunodeficiency (HCC); Benign prostatic hyperplasia without lower urinary tract symptoms; PAD (peripheral artery disease) (HCC); Vitamin D insufficiency; Atypical chronic myeloid leukemia, 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 Work Phone: Start: 12-17-2023 End: 12-17-2023 Patient encounter procedure [facility]-Laboratory, Phy Office 3rd Flr Start: 11-04-2023 End: 11-04-2023 Patient encounter procedure Tami Anne MD Work Phone: [facility] Comment on above: Malignant neoplasm o f urinary bladder, unspecified site (HCC) (Primary Dx) Start: 11-04-2023 Telephone encounter Tami Anne MD Work Phone: [facility] Comment on above: Appointment Start: 11-02-2023 E-mail encounter fro m caregiver Tami Anne Jr., MD Work Phone: [facility] [phone] Start: 11-02-2023 Patient encounter procedure Tami Anne MD Work Phone: [facility] Comment on above: upcoming appointment Start: 10-29-2023 End: 10-29-2023 ambulatory Bed 1 [facility] Work Phone: Hematology/Oncology Comment on above: Malignant neoplasm o f other specified sites of bladder (HCC) (Primary Dx) Start: 10-22-2023 End: 10-22-2023 ambulatory Bed 1 [facility] Work Phone: Hematology/Oncology Comment on above: Malignant neoplasm o f other specified sites of bladder (HCC) (Primary Dx) Start: 10-15-2023 End: 10-15-2023 ambulatory Bed 1 [facility] Work Phone: Hematology/Oncology Comment on above: Malignant neoplasm o f other specified sites of bladder (HCC) (Primary Dx) Start: 10-05-2023 End: 10-05-[address] [facility] Work Phone: Start: 10-05-2023 End: 10-05-2023 Patient encounter procedure [facility]-Laboratory, Phy Office 3rd Flr Start: 09-29-2023 End: 09-29-[address] [facility] Work Phone: Start: 09-29-2023 End: 09-29-2023 Patient encounter procedure [facility]-Laboratory Work Phone: Start: 08-04-2023 Telephone encounter Tami Anne MD Work Phone: [facility] Comment on above: Appointment Start: 08-04-2023 End: 08-04-2023 Patient encounter procedure Tami Anne MD Work Phone: [facility] Comment on above: Malignant neoplasm o f urinary bladder, unspecified site (HCC) (Primary Dx); Dysuria Start: 07-27-2023 Telephone encounter Rome Gomez MD Work Phone: [facility] Comment on above: Results Start: 07-26-2023 End: 07-26-2023 Patient encounter procedure Lambert Gomez MD Work Phone: [facility] Comment on above: Primary hypertension (Primary Dx); Mixed hyperlipidemia; Stage 3a chronic kidney disease (HCC); Bladder mass; Hematuria, unspecified type; Prediabetes; CML (chronic myeloid leukemia) (HCC); S/P allogeneic bone marrow transplant (HCC); Immunodeficiency (HCC); Benign prostatic hyperplasia without lower urinary tract symptoms; MPN (myeloproliferative neoplasm) (HCC) Start: 07-23-2023 Telephone encounter Tami Anne MD Work Phone: [facility] Comment on above: Appointment Start: 07-19-2023 End: 07-19-2023 Admission to [facility] Start: 07-19-2023 End: 07-19-2023 [address] Pst 1 [facility] Comment on above: Primary hypertension (Primary Dx); Mixed hyperlipidemia; PAD (peripheral artery disease) (HCC); Atrial fibrillation, unspecified type (HCC); Stage 3 chronic kidney disease, unspecified whether stage 3a or 3b CKD (HCC); Preop examination; Prediabetes; Bladder mass [N32.89] Start: 07-19-2023 End: 07-19-2023 Preprocedural examination done Pst 1 [facility] Work Phone: Start: 07-07-2023 End: 07-07-2023 Patient encounter procedure Tami Anne MD Work Phone: [facility] Comment on above: BPH with obstruction /lower urinary tract symptoms (Primary Dx); Gross hematuria Start: 07-06-2023 E-mail encounter fro m caregiver Tami Anne Jr., MD Work Phone: [employer] Start: 07-06-2023 Patient encounter procedure Tami Anne MD Work Phone: [facility] Comment on above: upcoming appointment Start: 07-01-2023 End: 07-01-2023 Subsequent hospital visit by physician [facility] (I-Stat) Work Phone: Cat Scan Comment on above: Benign prostatic hyp erplasia with lower urinary tract symptoms, symptom details unspecified [N40.1] Start: 06-23-2023 End: 06-23-2023 Patient encounter procedure Rachael English APRN.LINEN ROOM SUPERVISOR Work Phone: Pulmonary Medicine Comment on above: Lung nodules (Primar y Dx); Encounter for screening for malignant neoplasm of lung; Smoker; Coronary artery calcification seen on CT scan Start: 06-23-2023 End: 06-23-2023 Subsequent hospital visit by physician [facility] Comment on above: Smoker [F17.200] Start: 06-18-2023 End: 06-18-2023 Patient encounter procedure Wood Fitzgerald PA-C Work Phone: Urology Comment on above: Benign prostatic hyp erplasia with lower urinary tract symptoms, symptom details unspecified (Primary Dx); Gross hematuria; CML (chronic myeloid leukemia) (HCC); Screening for genitourinary condition Start: 06-01-2023 Telephone encounter Rome Gomez MD Work Phone: [facility] Comment on above: Patient Question (Wendy grant called in on 06/01/2023 and asked if the office could please call him when the Covid boosters come in. He would like to schedule his flu shot at the sametime. Call [phone]) Start: 04-22-2023 Telephone encounter Rome Gomez MD Work Phone: [facility] Comment on above: Results Start: 04-01-2023 Orders Only Rachael boogie APRN.LINEN ROOM SUPERVISOR Work Phone: Pulmonary Medicine Comment on above: Smoker (Primary Dx); Encounter for screening for malignant neoplasm of lung Start: 01-22-2023 End: 01-22-2023 Patient encounter procedure Lambert Gomez MD Work Phone: [facility] Comment on above: GABRIELA (acute kidney in jury) (HCC) (Primary Dx); Primary hypertension; Mixed hyperlipidemia; PAD (peripheral artery disease) (HCC); Benign prostatic hyperplasia without lower urinary tract symptoms; Prediabetes; CML (chronic myeloid leukemia) (HCC); S/P allogeneic bone marrow transplant (HCC); Immunodeficiency (HCC); MPN (myeloproliferative neoplasm) (HCC) Start: 01-15-2023 Telephone encounter Rome Gomez MD Work Phone: [facility] Comment on above: Lab Orders Start: 01-04-2023 End: 01-04-[address] [facility] Work Phone: Start: 01-04-2023 End: 01-04-2023 Patient encounter procedure [facility]Cardi[facility] Start: 08-27-2022 End: 08-27-2022 Patient encounter procedure Leia Shaw PA-C Work Phone: Pulmonary Medicine Comment on above: Tobacco use (Primary Dx); Encounter for smoking cessation counseling Start: 08-10-2022 End: 08-10-2022 Patient encounter procedure Cleopatra Greenwood APRN.LINEN ROOM SUPERVISOR Work Phone: [facility] Comment on above: Hypertension, essent ial (Primary Dx) Start: 07-24-2022 Telephone encounter Rome Gomez MD Work Phone: [facility] Comment on above: Patient Question Start: 07-15-2022 Telephone encounter Rome Gomez MD Work Phone: [facility] Comment on above: Lab Orders Start: 06-02-2022 End: 06-02-2022 [facility] PEDRITO PITTS Facility:[id number] Start: 05-13-2022 End: 05-13-2022 [facility] Work Phone: Start: 05-13-2022 End: 05-13-2022 Patient encounter procedure 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 Start: 02-16-2022 Telephone encounter Wood salguero PA-C Work Phone: Urology Comment on above: Results Start: 01-21-2022 Telephone encounter Rome Gomez MD Work Phone: [facility] Comment on above: Results Start: 01-20-2022 End: 01-20-2022 Patient encounter procedure Lambert Gomez MD Work Phone: [facility] Comment on above: Skin lesion (Primary Dx); Prediabetes; Primary hypertension; Mixed hyperlipidemia; CML (chronic myeloid leukemia) (HCC); S/P allogeneic bone marrow transplant (HCC); Immunodeficiency (HCC); Benign prostatic hyperplasia without lower urinary tract symptoms Procedures Date Procedure Procedure Detail Performing Clinician Start: 03-29-2025 Angiography PEDRITO RAMON MD Start: 03-22-2025 Urnls dip stick/tabl et rgnt auto w/o microscopy Tami Anne MD Work Phone: Start: 11-23-2024 Urnls dip stick/tabl et rgnt auto w/o microscopy Tami Anne MD Work Phone: Start: 11-15-2024 Serum inorganic phos phate measurement Dr. Rome Gomez MD Work Phone: Start: 09-13-2024 Urinary bladder stru cture (body structure) PEDRITO PITTS MD Start: 07-26-2024 Adult depression screening assessment Lambert Gomez MD Work Phone: Start: 06-27-2024 CT LUNG SCREEN WO HECTOR English APRN.LINEN ROOM SUPERVISOR Work Phone: Start: 05-25-2024 Urnls dip stick/tabl et rgnt auto w/o microscopy Tami Anne MD Work Phone: Start: 11-04-2023 Urnls dip stick/tabl et rgnt auto w/o microscopy Tami Anne MD Work Phone: Start: 08-04-2023 Urnls dip stick/tabl et rgnt auto w/o microscopy Tami Anne MD Work Phone: Start: 07-26-2023 Lipid 1996 panel - S francisca or Plasma Lambert Gomez MD Work Phone: Start: 07-07-2023 Urnls dip stick/tabl et rgnt auto w/o microscopy Tami Anne MD Work Phone: Start: 07-01-2023 Ct abdomen & pelvis w/o contrst 1/> body re Wood Fitzgerald PA-C Work Phone: Start: 06-23-2023 CT LUNG SCREEN WO HECTOR Starkey Tameka MAYERS.LINEN ROOM SUPERVISOR Work Phone: Start: 06-18-2023 Culture bacterial quanttative colony count urine Wood Fitzgerald PA-C Work Phone: Start: 06-18-2023 Urnls dip stick/tabl et rgnt auto w/o microscopy Wood Fitzgerald PA-C Work Phone: Start: 07-21-2022 Lipid 1996 panel - S francisca or Plasma Lambert Gomez MD Work Phone: Start: 05-14-2022 Stent, device (physi mika object) PEDRITO PITTS MD Comment on above: right lower extremit y Start: 01-20-2022 Adult depression screening assessment Lambert Gomez MD Work Phone: Start: 01-27-2016 Colonoscopy Rome Gomez MD Work Phone: Plan of Treatment Date Care Activity Detail Author Start: 09-21-2028 Urine microalbumin profile [facility] Start: 07-26-2028 Lipid 1996 panel - S francisca or Plasma Lipid Screening [facility] Start: 07-26-2028 Lipid panel Lipid Screening [facility] Start: 07-26-2027 Diabetes Screening Diabetes Screenin g [facility] Start: 07-21-2027 Lipid 1996 panel - S francisca or Plasma Lipid Screening [facility] Start: 07-21-2027 LIPID SCREEN LIPID SCREEN [facility] Start: 01-23-2027 Diabetes Screening Diabetes Screenin g [facility] Start: 11-03-2026 LIPID SCREEN LIPID SCREEN [facility] Start: 08-27-2026 Diabetes Screening Diabetes Screenin g [facility] Start: 07-26-2026 Diabetes Screening Diabetes Screenin g [facility] Start: 04-20-2026 DIABETES SCREEN DIABETES SCREEN [facility] Start: 04-20-2026 Diabetes Screening Diabetes Screenin g [facility] Start: 01-26-2026 Annual PCP Team Brewer Helper fabrice Disease Visit Annual PCP Team Chronic Disease Visit [facility] Start: 01-26-2026 BP Controlled (<130/80) BP Controlle d (<130/80) [facility] Start: 01-26-2026 Colonoscopy COLONOSCOPY [facility] Start: 01-26-2026 COLORECTAL CANCER SCREENING COLORECTAL CANCER SCREENING [facility] Start: 01-26-2026 Screening for malign ant neoplasm of colon [facility] Start: 01-23-2026 Annual PCP Team Brewer Helper fabrice Disease Visit Annual PCP Team Chronic Disease Visit [facility] Start: 01-23-2026 Creatinine measurement Serum Creatin ine [facility] Start: 01-23-2026 Hepatitis B screening Urine Albumin:Creatinine Ratio [facility] Start: 01-23-2026 Hepatitis B surface antibody level LDL Cholesterol [facility] Start: 01-20-2026 DIABETES SCREEN DIABETES SCREEN [facility] Start: 07-26-2025 Annual PCP Team Brewer Helper fabrice Disease Visit Annual PCP Team Chronic Disease Visit [facility] Start: 07-26-2025 Anxiety Screening Anxiety Screening [facility] Start: 07-26-2025 Creatinine measurement Serum Creatin ine [facility] Start: 07-26-2025 Depression Screening Depression Scre ening [facility] Start: 07-26-2025 Hemoglobin A1c measurement HbA1C [facility] Start: 07-26-2025 Medicare Annual Well ness Visit Medicare Annual Wellness Visit [facility] Start: 07-26-2025 End: 07-26-2025 Patient encounter procedure 07/26/2025 12:40 PM EST Office Visit [facility] [address] [place] [address] Lambert Gomez MD [address] [place] [address] 6 month follow up [facility] Comment on above: 6 month follow up Start: 07-21-2025 DIABETES SCREEN DIABETES SCREEN [facility] Start: 07-03-2025 End: 07-03-2025 Patient encounter procedure Radiology Comment on above: Encounter for screen ing for malignant neoplasm of lung [Z12.2] Start: 06-27-2025 Screening for malign ant neoplasm of lung Lung Cancer Screening [facility] Start: 06-05-2025 End: 06-05-2025 Patient encounter procedure 06/05/2025 9:30 AM EDT Office Visit Urology [address] [id number] Tami Anne Jr., MD [address] [place], [place] [id number] Cyst[facility] Urology Comment on above: Cysto Start: 06-02-2025 DIABETES SCREEN DIABETES SCREEN [facility] Start: 05-14-2025 Influenza vaccination Influenza Vacc ine (#1) [facility] Start: 05-10-2025 End: 05-10-2025 Patient encounter procedure 05/10/2025 9:30 AM EDT Office Visit [facility] [address] [place] [id number] [place] [address] [place] [id number] cysto [facility] Comment on above: cysto Start: 05-03-2025 End: 05-03-2025 Nursing evaluation of patient and report 05/03/2025 8:00 AM EDT Nurse Visit Urology [address] [id number] Mc, Nurse Urol [place] [address] [place], [place] [id number] BCG, from hold week Urology Comment on above: BCG, from hold week Start: 04-26-2025 End: 04-26-2025 Nursing evaluation of patient and report 04/26/2025 8:00 AM EDT Nurse Visit Urology [address] [address] Mc, Nurse Urol [place] [address] [place] [address] BCG 6 Urology Comment on above: BCG 6 Start: 04-19-2025 End: 04-19-2025 Nursing evaluation of patient and report 04/19/2025 8:00 AM EDT Nurse Visit Urology [address] [place] [address] Mc, Nurse Urol Higgins [address] [place] [address] BCG 5 Urology Comment on above: BCG 5 Start: 04-12-2025 End: 04-12-2025 Nursing evaluation of patient and report 04/12/2025 9:00 AM EDT Nurse Visit Urology [address] [address] Mc, Nurse Urol Higgins [address] [place] [address] BCG 4 Urology Comment on above: BCG 4 Start: 04-05-2025 End: 04-05-2025 Nursing evaluation of patient and report 04/05/2025 8:00 AM EDT Nurse Visit Urology [address] [place] [address] Mc, Nurse Urol Higgins [address] [place] [address] BCG 3 Urology Comment on above: BCG 3 Start: 03-22-2025 End: 03-22-2025 Nursing evaluation of patient and report 03/22/2025 8:00 AM EDT Nurse Visit Urology [address] [address] Mc, Nurse Urol Higgins [address] [place] [address] BCG 1 Urology Comment on above: BCG 1 Start: 03-19-2025 Evaluation of diagno stic study results [facility] Start: 02-01-2025 End: 02-01-2025 Patient encounter procedure 02/01/2025 11:45 AM EDT Office Visit [facility] [address] [place] [phone] Tami Anne Jr., MD [address] [place], [place] [id number] post-op [facility] Comment on above: post-op Start: 01-26-2025 DIABETES SCREEN DIABETES SCREEN [facility] Start: 01-23-2025 Annual PCP Team Brewer Helper fabrice Disease Visit Annual PCP Team Chronic Disease Visit [facility] Start: 01-23-2025 End: 04-24-2025 CBC W Auto Differential panel - Blood [facility] Comment on above: Expected: 01/23/2025 , Expires: 04/24/2025 Start: 01-23-2025 End: 04-24-2025 Comprehensive metabolic 2000 panel - Serum or Plasma [facility] Comment on above: Expected: 01/23/2025 , Expires: 04/24/2025 Start: 01-23-2025 Covid-19 Vaccine () Covid-19 Vaccine () [facility] Comment on above: Postponed from 08/07 (Declined at this time) Start: 01-23-2025 End: 04-24-2025 Hemoglobin A1c in Blood [facility] Comment on above: Expected: 01/23/2025 , Expires: 04/24/2025 Start: 01-23-2025 Hemoglobin A1c measurement HbA1C [facility] Start: 01-23-2025 End: 04-24-2025 Lipid 1996 panel - Serum or Plasma [facility] Comment on above: Expected: 01/23/2025 , Expires: 04/24/2025 Start: 01-23-2025 End: 04-24-2025 Microalbumin/Creatinine [Mass Ratio] in Urine [facility] Work Phone: Comment on above: Expected: 01/23/2025 , Expires: 04/24/2025 Start: 01-23-2025 End: 01-23-2025 Patient encounter procedure 01/23/2025 8:40 AM EDT Office Visit [facility] [address] [place] [address] PodlogarCleopatra APRN.LINEN ROOM SUPERVISOR [address] [facility] [place] [address] 6 month follow up [facility] Comment on above: 6 month follow up Start: 01-20-2025 DIABETES SCREEN DIABETES SCREEN [facility] Start: 01-19-2025 End: 01-19-2025 Admission to same day surgery center 01/19/2025 10:50 AM EDT - 01/19/2025 11:40 AM EDT Surgery [facility] [address] [facility] [address] [place] [address] [place] [address] [place] [id number] BIOPSY BLADDER [facility] Comment on above: BIOPSY BLADDER Start: 01-19-2025 End: 01-19-2025 Cystourethroscopy CYSTOSCOPY Malignant neoplasm of urinary bladder, unspecified site (HCC) 01/19/2025 10:50 AM EDT [facility] Start: 01-19-2025 End: 01-19-2025 Cystourethroscopy with biopsy BIOPSY BLADDER Malignant neoplasm of urinary bladder, unspecified site (HCC) 01/19/2025 10:50 AM EDT [facility] Start: 01-19-2025 Subsequent hospital visit by physician 01/19/2025 10:50 AM EDT Hospital [facility] [address] [facility] [address] [place] [address] [place] [address] [place] [id number] Malignant neoplasm of urinary bladder, unspecified site (HCC) [C67.9] [facility] Comment on above: Malignant neoplasm o f urinary bladder, unspecified site (HCC) [C67.9] Start: 01-19-2025 End: 01-19-2025 Cystourethroscopy CYSTOSCOPY Malignant neoplasm of urinary bladder, unspecified site (HCC) 01/19/2025 9:22 AM EDT [facility] Start: 01-19-2025 End: 01-19-2025 Cystourethroscopy with biopsy BIOPSY BLADDER Malignant neoplasm of urinary bladder, unspecified site (HCC) 01/19/2025 9:22 AM EDT [facility] Start: 11-23-2024 End: 11-23-2024 Patient encounter procedure 11/23/2024 9:30 AM EDT Office Visit [facility] [address] [place] [id number] Tami Anne Jr., MD [address] [place], [place] [id number] cysto [facility] Comment on above: cysto Start: 11-03-2024 DIABETES SCREEN DIABETES SCREEN [facility] Start: 09-13-2024 Advance Directive Discussion Advance Directive Discussion [facility] Start: 08-31-2024 End: 08-31-2024 ambulatory Hematology/Oncology Comment on above: /// BED 1st tx - BCG x 3 *BED 1st tx - BCG x 3 Start: 08-27-2024 Creatinine measurement Serum Creatin ine [facility] Start: 08-24-2024 End: 08-24-2024 ambulatory Hematology/Oncology Comment on above: /// BED 1st tx - BCG x 3 * BED 1st tx - BCG x 3 Start: 08-17-2024 End: 08-17-2024 ambulatory Hematology/Oncology Comment on above: /// BED 1st tx - BCG x 3 * BED 1st tx - BCG x 3 Start: 08-07-2024 Covid-19 Vaccine ( season) Covid-19 Vaccine ( season) [facility] Start: 07-26-2024 Annual PCP Team Brewer Helper fabrice Disease Visit Annual PCP Team Chronic Disease Visit [facility] Start: 07-26-2024 BP Controlled (<130/80) BP Controlle d (<130/80) [facility] Start: 07-26-2024 Hemoglobin/Hematocrit Hemoglobin/Hem atocrit [facility] Start: 07-26-2024 Hepatitis B surface antibody level LDL Cholesterol [facility] Start: 07-26-2024 RSV Vaccine (1 - 1-d ose 60+ series) RSV Vaccine (1 - 1-dose 60+ series) [facility] Comment on above: Postponed from 10/25 (Declined at this time) Start: 07-26-2024 RSV Vaccine (1 - Ris k 60-74 years 1-dose series) RSV Vaccine (1 - Risk 60-74 years 1-dose series) [facility] Comment on above: Postponed from 10/25 (Declined at this time) Start: 07-26-2024 Serum Creatinine Serum Creatinine Cl [facility] Start: 07-26-2024 End: 07-26-2024 Patient encounter procedure 07/26/2024 8:40 AM EST Office Visit [facility] [address] [place] [address] Lambert Gmoez MD [address] [place], [place] [id number] medicare wellness [facility] Comment on above: medicare wellness Start: 07-10-2024 Covid-19 Vaccine (3 - Pfizer risk series) Covid-19 Vaccine (3 - Pfizer risk series) [facility] Start: 06-27-2024 End: 06-27-2024 Patient encounter procedure Radiology Comment on above: Encounter for screen ing for malignant neoplasm of lung [Z12.2] annual Start: 06-25-2024 Serum Creatinine Serum Creatinine Cl [facility] Start: 06-23-2024 Influenza vaccination Lung Cancer Sc reening [facility] Start: 06-23-2024 Screening for malign ant neoplasm of lung Lung Cancer Screening [facility] Start: 05-25-2024 End: 05-25-2024 Patient encounter procedure 05/25/2024 8:30 AM EDT Office Visit [facility] [address] [place] [address] Tami Anne Jr., MD [address] [place] [address] cysto [facility] Comment on above: [facility]sto Start: 05-14-2024 Covid-19 Vaccine () Covid-19 Vaccine () [facility] Start: 05-14-2024 Influenza vaccination Influenza Vacc ine (#1) [facility] Start: 05-04-2024 End: 05-04-2024 Patient encounter procedure 05/04/2024 8:30 AM EDT Office Visit [facility] [address] [place] [address] Tami Anne Jr., MD [address] [place], [place] [id number] cysto [facility] Comment on above: cysto Start: 01-26-2024 End: 01-26-2024 Infusion Center 01/26/2024 9:00 AM EDT Infusion Center Hematology/Oncology [address] [place] [id number] *BED - BCG x 3- orders exp 01/28/2024 Hematology/Oncology Comment on above: *BED - BCG x 3- orde rs exp 01/28/2024 Start: 01-24-2024 End: 01-24-2024 Patient encounter procedure 01/24/2024 8:40 AM EDT Office Visit [facility] [address] [id number] Lambert Gomez MD [address] [place] [address] 6 month follow up [facility] Comment on above: 6 month follow up Start: 01-23-2024 ANNUAL PCP TEAM 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 SUPERVISOR FABRICE DISEASE VISIT ANNUAL PCP TEAM CHRONIC DISEASE VISIT [facility] Start: 01-19-2024 End: 01-19-2024 Infusion Center 01/19/2024 9:00 AM EDT Infusion Center Hematology/Oncology [address] [place] [address] * BED - BCG x 3- orders exp 01/28/2024 Hematology/Oncology Comment on above: * BED - BCG x 3- ord ers exp 01/28/2024 Start: 09-13-2023 Advance Directive Discussion Advance Directive Discussion [facility] Start: 09-13-2023 Behavioral Health Screening Behavioral Health Screening [facility] Start: 09-13-2023 Depression Assessment Depression Ass essment [facility] Start: 08-27-2023 BP CONTROLLED (<130/80) BP CONTROLLE D (<130/80) [facility] Start: 08-26-2023 End: 11-25-2023 CBC W Auto Differential panel - Blood CBC + DIFF Lab Routine Normocytic anemia due to blood loss Expected: 08/26/2023 (Approximate), Expires: 11/25/2023 [facility] Work Phone: Comment on above: Expected: 08/26/2023 (Approximate), Expires: 11/25/2023 Start: 08-26-2023 End: 11-25-2023 Ferritin [Mass/volume] in Serum or Plasma FERRITIN BLD Lab Routine Normocytic anemia due to blood loss Expected: 08/26/2023 (Approximate), Expires: 11/25/2023 [facility] Work Phone: Comment on above: Expected: 08/26/2023 (Approximate), Expires: 11/25/2023 Start: 08-26-2023 End: 11-25-2023 Iron and Iron binding capacity panel - Serum or Plasma IRON + TIBC Lab Routine Normocytic anemia due to blood loss Expected: 08/26/2023 (Approximate), Expires: 11/25/2023 [facility] Work Phone: Comment on above: Expected: 08/26/2023 (Approximate), Expires: 11/25/2023 Start: 08-10-2023 ANNUAL PCP TEAM 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 SUPERVISOR FABRICE DISEASE VISIT ANNUAL PCP TEAM CHRONIC DISEASE VISIT [facility] Start: 08-07-2023 Covid-19 Vaccine (7 - Moderna risk series) Covid-19 Vaccine (7 - Moderna risk series) [facility] Start: 08-07-2023 Covid-19 Vaccine ( season) Covid-19 Vaccine ( season) [facility] Start: 07-24-2023 ANNUAL PCP TEAM 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 FABRICE DISEASE VISIT ANNUAL PCP TEAM CHRONIC DISEASE VISIT [facility] Start: 07-02-2023 Cystourethroscopy CYSTO.PANEND O Procedures Routine Benign prostatic hyperplasia with lower urinary tract symptoms, symptom details unspecified Gross hematuria Expected: 07/02/2023 (Approximate) [facility] Work Phone: Comment on above: Expected: 07/02/2023 (Approximate) Start: 06-25-2023 End: 08-25-2023 CREATININE BLD CREATININE BLD Lab Routine Benign prostatic hyperplasia with lower urinary tract symptoms, symptom details unspecified Gross hematuria Expected: 06/25/2023 (Approximate), Expires: 08/25/2023 [facility] Work Phone: Comment on above: Expected: 06/25/2023 (Approximate), Expires: 08/25/2023 Start: 06-25-2023 End: 07-19-2024 Ct abdomen & pelvis w/o contrst 1/ body re CT UROGRAM WO/W IVCON Radiology Routine Benign prostatic hyperplasia with lower urinary tract symptoms, symptom details unspecified Gross hematuria Expected: 06/25/2023 (Approximate), Expires: 07/19/2024 [facility] Work Phone: Comment on above: Expected: 06/25/2023 (Approximate), Expires: 07/19/2024 Start: 06-18-2023 End: 08-18-2023 Bacteria identified in Urine by Culture URINE CULTURE Microbiology Routine Benign prostatic hyperplasia with lower urinary tract symptoms, symptom details unspecified Gross hematuria Expected: 06/18/2023 (Approximate), Expires: 08/18/2023 [facility] Work Phone: Comment on above: Expected: 06/18/2023 (Approximate), Expires: 08/18/2023 Start: 05-14-2023 Influenza vaccination [facility] Start: 04-28-2023 Influenza vaccination LUNG CANCER SC [facility] Start: 02-22-2023 End: 04-24-2023 Comprehensive metabolic 2000 panel - Serum or Plasma COMP METABOLIC PANEL Lab Routine GABRIELA (acute kidney injury) (HCC) Expected: 02/22/2023, Expires: 04/24/2023 [facility] Work Phone: Comment on above: Expected: 02/22/2023 , Expires: 04/24/2023 Start: 01-20-2023 Adult depression scr eening assessment DEPRESSION SCREENING [facility] Start: 01-20-2023 ANNUAL PCP TEAM 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 SUPERVISOR FABRICE DISEASE VISIT ANNUAL PCP TEAM CHRONIC DISEASE VISIT [facility] Start: 01-15-2023 End: 03-17-2023 CBC W Auto Differential panel - Blood CBC + DIFF Lab Routine Mixed hyperlipidemia Prediabetes Expected: 01/15/2023, Expires: 03/17/2023 [facility] Work Phone: Comment on above: Expected: 01/15/2023 , Expires: 03/17/2023 Start: 01-15-2023 End: 03-17-2023 Comprehensive metabolic 2000 panel - Serum or Plasma COMP METABOLIC PANEL Lab Routine Mixed hyperlipidemia Prediabetes Expected: 01/15/2023, Expires: 03/17/2023 [facility] Work Phone: Comment on above: Expected: 01/15/2023 , Expires: 03/17/2023 Start: 01-15-2023 End: 03-17-2023 Hemoglobin A1c in Blood HGB A1C Lab Routine Mixed hyperlipidemia Prediabetes Expected: 01/15/2023, Expires: 03/17/2023 [facility] Work Phone: Comment on above: Expected: 01/15/2023 , Expires: 03/17/2023 Start: 09-18-2022 Covid-19 Vaccine (7 - Moderna risk series) Covid-19 Vaccine (7 - Moderna risk series) [facility] Start: 09-13-2022 ADVANCE DIRECTIVE DISCUSSION ADVANCE DIRECTIVE DISCUSSION [facility] Start: 09-13-2022 DEPRESSION ASSESSMENT DEPRESSION ASS ESSMENT [facility] Start: 07-30-2022 ANNUAL PCP TEAM 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 SUPERVISOR FABRICE DISEASE VISIT ANNUAL PCP TEAM CHRONIC DISEASE VISIT [facility] Start: 07-15-2022 End: 09-14-2022 Hemoglobin A1c in Blood HGB A1C Lab Routine Prediabetes Expected: 07/15/2022, Expires: 09/14/2022 [facility] Work Phone: Comment on above: Expected: 07/15/2022 , Expires: 09/14/2022 Start: 07-15-2022 End: 09-14-2022 Lipid 1996 panel - Serum or Plasma LIPID PANEL BASIC Lab Routine Mixed hyperlipidemia Expected: 07/15/2022, Expires: 09/14/2022 [facility] Work Phone: Comment on above: Expected: 07/15/2022 , Expires: 09/14/2022 Start: 06-29-2022 COVID-19 VACCINE (6 - Booster for Moderna series) COVID-19 VACCINE (6 - Booster for Moderna series) [facility] Start: 04-23-2022 Influenza vaccination LUNG CANCER SC REENING [facility] Start: 04-02-2022 COVID-19 VACCINE (5 - Booster for Moderna series) COVID-19 VACCINE (5 - Booster for Moderna series) [facility] Start: 03-04-2022 End: 05-04-2022 BM ENGRAFTMENT MINI BM ENGRAFTMENT MINI Lab Routine Electrolyte and fluid disorder 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) Expected: 03/04/2022, Expires: 05/04/2022 [facility] Work Phone: Comment on above: Expected: 03/04/2022 , Expires: 05/04/2022 Start: 03-04-2022 End: 05-04-2022 CBC W Auto Differential panel - Blood CBC + DIFF Lab Routine Electrolyte and fluid disorder 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) Expected: 03/04/2022, Expires: 05/04/2022 [facility] Work Phone: Comment on above: Expected: 03/04/2022 , Expires: 05/04/2022 Start: 03-04-2022 End: 05-04-2022 CMV DNA DETECTION AND QUANT CMV DNA DETECTION AND QUANT Lab Routine Electrolyte and fluid disorder 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) Expected: 03/04/2022, Expires: 05/04/2022 [facility] Work Phone: Comment on above: Expected: 03/04/2022 , Expires: 05/04/2022 Start: 03-04-2022 End: 05-04-2022 Comprehensive metabolic 2000 panel - Serum or Plasma COMP METABOLIC PANEL Lab Routine Electrolyte and fluid disorder 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) Expected: 03/04/2022, Expires: 05/04/2022 [facility] Work Phone: Comment on above: Expected: 03/04/2022 , Expires: 05/04/2022 Start: 03-04-2022 End: 05-04-2022 Magnesium [Mass/volume] in Serum or Plasma MAGNESIUM BLD Lab Routine Electrolyte and fluid disorder 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) Expected: 03/04/2022, Expires: 05/04/2022 [facility] Work Phone: Comment on above: Expected: 03/04/2022 , Expires: 05/04/2022 Start: 03-04-2022 End: 05-04-2022 T-cell helper (CD4) subset panel - Blood CD4 ABSOLUTE COUNT Lab Routine Electrolyte and fluid disorder 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) Expected: 03/04/2022, Expires: 05/04/2022 [facility] Work Phone: Comment on above: Expected: 03/04/2022 , Expires: 05/04/2022 Start: 01-24-2022 Adult depression scr eening assessment DEPRESSION SCREENING [facility] Start: 01-21-2022 End: 03-23-2022 Comprehensive metabolic 2000 panel - Serum or Plasma COMP METABOLIC PANEL Lab Routine GABRIELA (acute kidney injury) (HCC) Expected: 01/21/2022, Expires: 03/23/2022 [facility] Work Phone: Comment on above: Expected: 01/21/2022 , Expires: 03/23/2022 Start: 01-21-2022 End: 03-23-2022 Urinalysis complete panel - Urine URINALYSIS, WITH MICROSCOPIC Lab Routine GABRIELA (acute kidney injury) (HCC) Expected: 01/21/2022, Expires: 03/23/2022 [facility] Work Phone: Comment on above: Expected: 01/21/2022 , Expires: 03/23/2022 Start: 01-20-2022 End: 03-22-2022 CBC W Auto Differential panel - Blood [facility] Work Phone: Comment on above: Expected: 01/20/2022 , Expires: 03/22/2022 Start: 01-20-2022 End: 03-22-2022 Comprehensive metabolic 2000 panel - Serum or Plasma [facility] Work Phone: Comment on above: Expected: 01/20/2022 , Expires: 03/22/2022 Start: 01-20-2022 End: 03-22-2022 Hemoglobin A1c/Hemoglobin.total in Blood [facility] Work Phone: Comment on above: Expected: 01/20/2022 , Expires: 03/22/2022 Start: 09-13-2021 ADVANCE DIRECTIVE DISCUSSION ADVANCE DIRECTIVE DISCUSSION [facility] Start: 09-13-2021 DEPRESSION ASSESSMENT DEPRESSION ASS ESSMENT [facility] Start: 11-26-2019 Glaucoma screening Dilated Retinal E xam [facility] Start: 2010 RSV Vaccine (1 - 1-d ose 60+ series) RSV Vaccine (1 - 1-dose 60+ series) [facility] Start: 2010 RSV Vaccine (1 - Ris k 60-74 years 1-dose series) RSV Vaccine (1 - Risk 60-74 years 1-dose series) [facility] Start: 1995 COLOGUARD (FIT-DNA) COLOGUARD (FIT-D NA) [facility] Start: [address] [facility]HY [facility] Start: 1995 FECAL OCCULT BLOOD FECAL OCCULT BLOO D [facility] Start: 1995 Screening for malign ant neoplasm of colon [facility] Start: 1995 SIGMOIDOSCOPY SIGMOIDOSCOPY [facility] Start: 1968 Anxiety Screening Anxiety Screening [facility] Start: 1968 BP CONTROLLED (<130/80) BP CONTROLLE D (<130/80) [facility] Start: 1968 Depression Screening Depression Scre ening [facility] Start: 1960 Diabetic foot examination Diabetic F oot Exam [facility] Start: 1960 Hepatitis B screening Urine Albumin:Creatinine Ratio [facility] Bacteria identified in Urine by Culture URINE CULTURE Microbiology Routine Gross hematuria 07/07/2023 2:41 PM EDT [facility] Work Phone: Bacteria identified in Urine by Culture URINE CULTURE Microbiology Routine Malignant neoplasm of urinary bladder, unspecified site (HCC) Dysuria 08/04/2023 1:17 PM EST [facility] Work Phone: End: 07-27-2025 CT Chest for screening WO contrast CT LUNG SCREEN WO IVCON Radiology Routine Encounter for screening for malignant neoplasm of lung Tobacco use 1 Occurrences starting 06/27/2024 until 07/27/2025 [facility] Work Phone: Comment on above: 1 Occurrences starti ng 06/27/2024 until 07/27/2025 End: 02-11-2024 CT LUNG SCREEN WO IVCON CT LUNG SCREEN WO IVCON Radiology Routine Smoker Encounter for screening for malignant neoplasm of lung 1 Occurrences starting 04/01/2023 until 02/11/2024 [facility] Work Phone: Comment on above: 1 Occurrences starti ng 04/01/2023 until 02/11/2024 End: 07-24-2024 CT LUNG SCREEN WO IVCON CT LUNG SCREEN WO IVCON Radiology Routine Encounter for screening for malignant neoplasm of lung Smoker 1 Occurrences starting 06/23/2023 until 07/24/2024 [facility] Work Phone: Comment on above: 1 Occurrences starti ng 06/23/2023 until 07/24/2024 CYTOLOGY NON-FLITCH HANGER CYTOLOGY NON-GY N Lab Routine Benign prostatic hyperplasia with lower urinary tract symptoms, symptom details unspecified Gross hematuria 06/18/2023 10:05 AM EDT [facility] Work Phone: End: 01-26-2026 ECG COMPLETE ECG COMPLETE ECG Routine Fatigue, unspecified type 1 Occurrences starting 01/26/2025 until 01/26/2026 [facility] Work Phone: Comment on above: 1 Occurrences starti ng 01/26/2025 until 01/26/2026 NM Heart Views W str ess and W radionuclide IV [facility] Heart [facility] c [facility] c [facility] c [facility] c [facility] c [facility] Immunizations Immunization Date Immunization Notes Care Provider [facility] 06-12-2024 COVID-19 original vaccine, booster dose, monovalent (MODERNA) Sheela Vera GLASS SILVERER.LINEN ROOM SUPERVISOR Work Phone: [facility] 06-12-2024 COVID-19 vaccine, ag e 12+ yr (MODERNA) Madie Costello LPN [facility] 06-12-2024 influenza, high dose seasonal, preservative-free Sheela Vera GLASS SILVERER.LINEN ROOM SUPERVISOR Work Phone: [facility] 06-12-2024 influenza virus vaccine, unspecified formulation Tami Anne Jr., MD Work Phone: [facility] 06-12-2023 COVID-19 vaccine, ag e 12+ yr, season (PFIZER-BIONTECH) Wood Fitzgerald PA-C Work Phone: [facility] Work Phone: 06-12-2023 influenza (HD-IIV4) vaccine, age 65+ yr, high dose, quadrivalent, PF (FLUZONE HIGH-DOSE) Wood Fitzgerald PA-C Work Phone: [facility] 06-12-2023 influenza virus vaccine, unspecified formulation Tami Anne Jr., MD Work Phone: [facility] 07-24-2022 COVID-19 booster vaccine, age 12+ yr, bivalent (PFIZER-BIONTECH) Lmabert Gomez MD Work Phone: [facility] 05-19-2022 influenza, high-dose , quadrivalent vaccine (FLUZONE HIGH DOSE QUADRIVALENT) Lambert Gomez MD Work Phone: [facility] 05-19-2022 influenza virus vaccine, unspecified formulation Lambert Gomez MD Work Phone: [facility] 12-01-2021 COVID-19 vaccine, fu ll dose (MODERNA) Lambert Gomez MD Work Phone: [facility] 11-03-2021 zoster vaccine recombinant Lambert Gomez MD Work Phone: [facility] 08-04-2021 zoster vaccine recombinant Lambert Gomez MD Work Phone: [facility] 07-18-2021 COVID-19 vaccine, fu ll dose (MODERNA) Lambert Gomez MD Work Phone: [facility] 05-14-2021 influenza, high dose seasonal, preservative-free Lambert Gomez MD Work Phone: [facility] 05-14-2021 influenza, high-dose , quadrivalent vaccine (FLUZONE HIGH DOSE QUADRIVALENT) Lambert Gomez MD Work Phone: [facility] 12-18-2020 COVID-19 vaccine, fu ll dose (MODERNA) Lambert Gomez MD Work Phone: [facility] Work Phone: 11-20-2020 COVID-19 vaccine, fu ll dose (MODERNA) Lambert Gomez MD Work Phone: [facility] Work Phone: 05-26-2020 influenza virus vaccine, unspecified formulation Lambert Gomez MD Work Phone: [facility] Work Phone: 05-25-2020 influenza, high dose seasonal, preservative-free Lambert Gomez MD Work Phone: [facility] 05-25-2020 unknown vaccine or immune globulin Madie Costello LPN [facility] 06-14-2019 influenza, high dose seasonal, preservative-free Lambert Gomez MD Work Phone: [facility] Work Phone: 11-25-2018 hepatitis A and hepatitis B vaccine Lambert Gomez MD Work Phone: [facility] 11-25-2018 meningococcal polysaccharide (groups A, C, Y and W-135) diphtheria toxoid conjugate vaccine (MCV4P) Lambert Gomez MD Work Phone: [facility] 11-25-2018 pneumococcal polysaccharide vaccine, 23 valent Lambert Gomez MD Work Phone: [facility] 09-21-2018 haemophilus influenz ae type b vaccine, PRP-OMP conjugate Lambert Gomez MD Work Phone: [facility] 09-21-2018 meningococcal B vaccine, recombinant, OMV, adjuvanted Lambert Gomez MD Work Phone: [facility] 09-21-2018 pneumococcal conjuga te vaccine, 13 valent Lambert Gomez MD Work Phone: [facility] 09-21-2018 poliovirus vaccine, inactivated Lambert Gomez MD Work Phone: [facility] 09-21-2018 tetanus and diphther ia toxoids, adsorbed, preservative free, for adult use (5 Lf of tetanus toxoid and 2 Lf of diphtheria toxoid) Lambert Gomez MD Work Phone: [facility] 08-08-2018 haemophilus influenz ae type b vaccine, PRP-OMP conjugate Lambert Gomez MD Work Phone: [facility] 08-08-2018 hepatitis A and hepatitis B vaccine Lambert Gomez MD Work Phone: [facility] 08-08-2018 pneumococcal conjuga te vaccine, 13 valent Lambert Gomez MD Work Phone: [facility] 08-08-2018 poliovirus vaccine, inactivated Lambert Gomez MD Work Phone: [facility] 08-08-2018 tetanus and diphther ia toxoids, adsorbed, preservative free, for adult use (5 Lf of tetanus toxoid and 2 Lf of diphtheria toxoid) Lambert Gomez MD Work Phone: [facility] 06-08-2018 haemophilus influenz ae type b vaccine, PRP-OMP conjugate Lambert Gomez MD Work Phone: [facility] 06-08-2018 hepatitis A and hepatitis B vaccine Lambert Gomez MD Work Phone: [facility] 06-08-2018 influenza, high dose seasonal, preservative-free Lambert Gomez MD Work Phone: [facility] 06-08-2018 pneumococcal conjuga te vaccine, 13 valent Lambert Gomez MD Work Phone: [facility] 06-08-2018 poliovirus vaccine, inactivated Lambert Gomez MD Work Phone: [facility] 06-08-2018 tetanus toxoid, redu cathy diphtheria toxoid, and acellular pertussis vaccine, adsorbed Lambert Gomez MD Work Phone: [facility] 06-10-2017 influenza, injectabl e, quadrivalent, preservative free Lambert Gomez MD Work Phone: [facility] Work Phone: 02-17-2017 pneumococcal polysaccharide vaccine, 23 valent Lambert Gomez MD Work Phone: [facility] Work Phone: 01-01-2016 pneumococcal conjuga te vaccine, 13 valent Lambert Gomez MD Work Phone: [facility] Work Phone: 10-02-2008 TD(adult) unspecifie d formulation Lambert Gomez MD Work Phone: [facility] Work Phone: 04-15-2007 tetanus toxoid, redu cathy diphtheria toxoid, and acellular pertussis vaccine, adsorbed Lambert Gomez MD Work Phone: [facility] Work Phone: Payers Date Payer Category Payer Private Health Insurance 64e [id number] 2024 Self-pay [id number] 2017 [employer] ANTHEM ME DICARE SUPPLEMENT [id number] 2017 Unknown ANTHEM ANTHEM ME DICARE SUPPLEMENT [id number] 2017-Present [phone] [id number] [place] [id number] Indemnity [id number] 2017 Unknown ANTHEM ANTHEM ME DICARE SUPPLEMENT [id number] 2017-Present [id number] [place] [id number] Indemnity [id number] 2017 Unknown [id number] 2015 Medicare MEDICARE MEDICAR E A AND B [id number] 2015-Present [phone] [place] [address] Medicare [id number] 2015 Medicare [id number] 2015 Medicare [id number] 1950 Unknown [id number] 1950 Unknown [id number] Unknown [id number] Unknown [id number] Unknown [id number] Unknown [id number] Social History Date Type Detail Facility Start: 09-13-1975 End: 06-27-2024 Tobacco smoking status IAIS Smokes tobacco daily [facility] Work Phone: Start: 09-13-1975 End: 06-27-2024 History of tobacco use Cigarette Smoker [facility] Work Phone: Start: 08-01-2021 End: 01-22-2023 Cigarettes smoked current (pack per day) - Reported 0.5 [facility] Start: 08-01-2021 End: 07-26-2024 Tobacco use and exposure Smokeless tobacco non-user [facility] Work Phone: Start: 01-20-2022 End: 02-01-2025 Alcohol intake Current non-drinker of alcohol (finding) [facility] Start: 01-25-2021 End: 08-03-2022 History SDOH Alcohol Frequency 1 [facility] Start: 01-25-2021 End: 08-03-2022 History SDOH Alcohol Std Drinks 98 [facility] Start: 01-25-2021 End: 08-03-2022 History SDOH Social Connections Phone 5 [facility] Start: 01-25-2021 End: 08-03-2022 History SDOH Social Connections Get Together 4 [facility] Start: 01-25-2021 End: 07-20-2022 History SDOH Social Connections Jain 2 [facility] Start: 01-25-2021 End: 08-03-2022 History SDOH Social Connections Living 3 [facility] Start: 01-25-2021 History SDOH Physica l Activity MPS 11 [facility] Start: 01-09-2020 Education 17 [facility] Start: 1950 Sex Assigned At Not on file [facility] Start: 01-09-2022 End: 07-24-2022 Exposure to SARS-CoV-2 (event) Not sure [facility] Start: 02-08-2022 End: 02-18-2022 Exposure to SARS-CoV-2 (event) Unable to assess [facility] Start: 01-22-2020 End: 06-04-2023 Tobacco smoking status NHIS Unknown if ever smoked [facility] Start: 1950 Sex Assigned At Male [facility] Start: 06-01-2022 [facility] Start: 08-03-2022 History SDOH Alcohol Std Drinks 0 [facility] Start: 07-30-2022 Tobacco Comment Currently at 1 /2ppd 07/30/22 [facility] Start: 08-27-2022 Tobacco Comment Less than 1/2p pd, does not finish the cigarette 08/27/22 [facility] Start: 08-03-2022 End: 01-22-2023 Social connection and isolation panel [facility] How often do you att end evangelical or roman catholic services? Patient refused [facility] Do you belong to any clubs or organizations such as evangelical groups, unions, fraternal or athletic groups, or school groups? No [facility] Are you now , , , , never or living with a partner? [facility] How often to you hav e a drink containing alcohol? Never [facility] Do you feel stress - tense, restless, nervous, or anxious, or unable to sleep at night because your mind is troubled all the time - these days [OSQ] Not at all [facility] (I/We) worried wheth er (my/our) food would run out before (I/we) got money to buy more. Never true [facility] Start: 06-23-2023 Tobacco Comment Less than 1/2p pd, does not finish the cigarette 08/27/22, start age 25 [facility] Start: 01-24-2024 Tobacco smoking stat us IAIS Occasional tobacco smoker [facility] Start: 07-26-2024 End: 03-05-2025 Tobacco smoking status NHIS Ex-smoker [facility] Start: 09-13-1975 End: 06-27-2024 History of tobacco use Current smoker [facility] Start: 06-04-2023 Tobacco smoking stat [facility] Never smoked tobacco (finding) [facility] Start: 11-26-2024 Sex Male (finding) [facility] Do you feel stress - tense, restless, nervous, or anxious, or unable to sleep at night because your mind is troubled all the time - these days [OSQ] Only a little [facility] Medical Equipment Procedure Code Equipment Code Equipment Origin al Text Equipment Identifier Dates System Vascade 6 /7fr Collagen Compression Bioabsorbable Vascular - [id number] Start: 06-02-2022 Stent Sophie 6mm 40mm 130cm Vascular Delivery System - [id number] Start: 06-02-2022 Functional Status Date Assessment Result Facility 02-05-2018 Are you deaf, or do you have serious difficulty hearing No 02/05/2018 12:12 PM Aminata [facility], [place] No [facility] 02-05-2018 Are you blind, or do you have serious difficulty seeing, even when wearing glasses No 02/05/2018 12:12 PM Aminata Hall RN No [facility] 02-05-2018 Do you have serious difficulty walking or climbing stairs No 02/05/2018 12:12 PM Aminata [facility], [place] No [facility] 02-05-2018 Do you have difficul ty dressing or bathing No 02/05/2018 12:12 PM [facility], [place] No [facility] 02-05-2018 Because of a physica l, mental, or emotional condition, do you have difficulty doing errands alone such as visiting a physician's office or shopping No 02/05/2018 12:12 PM Aminata Hall RN No [facility] Mental Status Date Assessment Result Facility 02-05-2018 Because of a physica l, mental, or emotional condition, do you have serious difficulty concentrating, remembering, or making decisions No 02/05/2018 12:12 PM EDT Aminata Batista RN No [facility] Clinical Notes 11-17-2018 to 04-12-2025 Addendum Note - Gail Shipman RN - 04/12/2025 1:41 PM EDTAddendum Note - Gail Shipman RN - 04/12/2025 1:41 PM EDTSGail mendoza RN - 04/12/2025 9:01 AM EDT Note Date & Type Note Facility 04-12-2025 Note Addended by: GAIL SHIPMAN on: 04/12/2025 01:41 PM Modules accepted: Orders [facility] 04-12-2025 Miscellaneous Notes Addended by: GAIL SHIPMAN on: 04/12/2025 01:41 PM Modules accepted: Orders documented in this encounter [facility] 04-12-2025 Note HNO ID: [id number] Author: GAIL SHIPMAN RN Service: ? Author Type: Registered Nurse Type: Progress Notes Filed: 04/12/2025 09:03 Note Text: BLADDER INSTILLATION Patient ID with two (2) identifiers verified by: Yes Allergies reviewed and updated: Yes Medication ordered for bladder instillation: BCG Current pain intensity is: 0 on a 0-10 pain scale. Have you seen any blood in the last 24 hours: No Have you had a temperature greater than 101F in the last 24 hours: No Do you have foul smelling urine or severe burning/urgency that has worsened since the last bladder instillation treatment: No No, Proceed with BCG Any concerns about safety in the home/falls: Not at risk for falls Start Date: 03-22-2025 Treatment number: 3 of 6 Retention Time Last RX: 2 hours Symptoms Post Last RX: None Catheter Used: 16 fr. coude BCG instilled at: 0850 Drained at: 1050 Residual TX: Yes 15 cc. Return to Clinic on : 1 week Patient tolerated treatment well. Patient presents for 3rd BCG treatment. Prepped with betadine and 1 vial in 50 ml of saline instilled in the bladder via #16 Coude' red Mortensen catheter without difficulty. Patient tolerated well. Patient instructed not to void for 2 hours. Printed instructions given to patient. Gail Shipman RN [facility] 04-12-2025 History of Presen t illness Narrative BLADDER INSTILLATION Patient ID with two (2) identifiers verified by: Yes Allergies reviewed and updated: Yes Medication ordered for bladder instillation: BCG Current pain intensity is: 0 on a 0-10 pain scale. Have you seen any blood in the last 24 hours: No Have you had a temperature greater than 101F in the last 24 hours: No Do you have foul smelling urine or severe burning/urgency that has worsened since the last bladder instillation treatment: No No, Proceed with BCG Any concerns about safety in the home/falls: Not at risk for falls Start Date: 03-22-2025 Treatment number: 3 of 6 Retention Time Last RX: 2 hours Symptoms Post Last RX: None Catheter Used: 16 fr. coude BCG instilled at: 0850 Drained at: 1050 Residual TX: Yes 15 cc. Return to Clinic on : 1 week Patient tolerated treatment well. Patient presents for 3rd BCG treatment. Prepped with betadine and 1 vial in 50 ml of saline instilled in the bladder via #16 Coude' red Mortensen catheter without difficulty. Patient tolerated well. Patient instructed not to void for 2 hours. Printed instructions given to patient. Gail Shipman RN documented in this encounter [facility] 04-11-2025 Note HNO ID: [id number] Author: RUTH MCKEON MA Service: ? Author Type: Damage Prevention Coordinator Type: Progress Notes Filed: 04/11/2025 12:22 Note Text: POPULATION HEALTH NAVIGATION OUTREACH Action/FYI UPDATED APPOINTMENT NOTE HCC CLSOURE Topic Due (Y or N) Comments Medicare Wellness Y PCP Follow up Colorectal Cancer Screening Controlling Blood Pressure A1C HCC Y Flu Vaccine Care Everywhere Reviewed MyChart Activation Updated Appointment Note Reason for Outreach Care Gap/HCC or Scheduling Wellness Visits Care Gaps due: Medicare Annual Wellness Visit Patient Contacted: Unable or unnecessary to reach patient: HCC related Patient already scheduled Updated appointment notes Navigation Signature: Ruth Mckeon MA April 11, 2025 12:18 PM [facility] 04-11-2025 History of Presen t illness Narrative POPULATION HEALTH NAVIGATION OUTREACH Action/FYI UPDATED APPOINTMENT NOTE HCC CLSOURE Topic Due (Y or N) Comments Medicare Wellness Y PCP Follow up Colorectal Cancer Screening Controlling Blood Pressure A1C HCC Y Flu Vaccine Care Everywhere Reviewed MyChart Activation Updated Appointment Note Reason for Outreach Care Gap/HCC or Scheduling Wellness Visits Care Gaps due: Medicare Annual Wellness Visit Patient Contacted: Unable or unnecessary to reach patient: HCC related Patient already scheduled Updated appointment notes Navigation Signature: Ruth Mckeon MA April 11, 2025 12:18 PM documented in this encounter [facility] 04-11-2025 Note Patient Outreach (NE TNAV) TRACY GORMAN ([id number]) 1950 M Date Time Provider Department 04/11/25 RUTH MCKEON NETNAV During your visit today, we recorded the following information about you: Ruth Mckeon MA 04/11/2025 12:22 PM Signed POPULATION HEALTH NAVIGATION OUTREACH Action/FYI UPDATED APPOINTMENT NOTE HCC CLSOURE Topic Due (Y or N) Comments Medicare Wellness Y PCP Follow up Colorectal Cancer Screening Controlling Blood Pressure A1C HCC Y Flu Vaccine Care Everywhere Reviewed MyChart Activation Updated Appointment Note Reason for Outreach Care Gap/HCC or Scheduling Wellness Visits Care Gaps due: Medicare Annual Wellness Visit Patient Contacted: Unable or unnecessary to reach patient: HCC related Patient already scheduled Updated appointment notes Navigation Signature: Ruth Mckeon MA April 11, 2025 12:18 PM Allergies As of Date: 04/11/2025 (No Known Allergies) Date Reviewed: 03/22/2025 Reviewed by: Gail Shipman RN - Fully Assessed Reason for Visit: Population Health Navigation Outreach [3910] Cmt: NATHANAEL VAZQUEZ [facility] Prescriptions as of 04/11/2025 - fenofibrate nanocrystallized (TRICOR) 145 mg tablet Take 1 tablet by mouth once daily. - amLODIPine (NORVASC) 10 mg tablet Take 1 tablet by mouth once daily. - atenolol (TENORMIN) 100 mg tablet Take 1 tablet by mouth once daily. - lisinopril (ZESTRIL) 20 mg tablet Take 0.5 tablets by mouth once daily. - metFORMIN (GLUCOPHAGE) 500 mg tablet Take 1 tablet by mouth two times a day with meals. - rosuvastatin (CRESTOR) 10 mg tablet Take 1 tablet by mouth once daily. - finasteride (PROSCAR) 5 mg tablet Take 1 tablet by mouth once daily. - clopidogrel (PLAVIX) 75 mg tablet Take 75 mg by mouth once daily. - Cholecalciferol, Vitamin D3, (VITAMIN D) 1,000 unit cap Take 1 capsule by mouth twice daily. - Multivitamin capsule Take 1 capsule by mouth once daily. 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]02/08/2018 11/25/2018 Encounter for aftercare following bone marrow t*11/17/2018 01/10/2020 PAD (peripheral artery disease) (HCC) [I73.9] MPN (myeloproliferative neoplasm) (HCC) [D47.1] Hyperlipidemia [E78.5] HTN (hypertension) [I10] Prediabetes [R73.03] Benign prostatic hyperplasia without lower urin*01/20/2022 Abdominal aortic aneurysm (AAA) without rupture* Chronic kidney disease (CKD), stage III (modera* Preoperative examination [Z01.818] Malignant neoplasm of urinary bladder (HCC) [C6*07/30/2023 Vitamin D insufficiency [E55.9] 01/24/2024 Atypical chronic myeloid leukemia, 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 Author Type: Registered Nurse Type: Progress Notes Filed: 04/05/2025 09:28 Note Text: BLADDER INSTILLATION Patient ID with two (2) identifiers verified by: Yes Allergies reviewed and updated: Yes Medication ordered for bladder instillation: BCG Current pain intensity is: 0 on a 0-10 pain scale. Have you seen any blood in the last 24 hours: No Have you had a temperature greater than 101F in the last 24 hours: No Do you have foul smelling urine or severe burning/urgency that has worsened since the last bladder instillation treatment: No No, Proceed with BCG Any concerns about safety in the home/falls: Not at risk for falls Start Date: 03-22-2025 Treatment number: 2 of 6 Retention Time Last RX: 2 hours Symptoms Post Last RX: None Catheter Used: 16 fr. coude BCG instilled at: 0825 Drained at: 1025 Residual TX: Yes 75 cc. Return to Clinic on : 1 week Patient tolerated treatment well. Patient presents for 2nd BCG treatment. Prepped with betadine and 1 vial in 50 ml of saline instilled in the bladder via #16 Coude' red Mortensen catheter without difficulty. Patient tolerated well. Patient instructed not to void for 2 hours. Printed instructions given to patient. See MAR for medication sign off. Gail Shipman RN [facility] 04-05-2025 History of Presen t illness Narrative BLADDER INSTILLATION Patient ID with two (2) identifiers verified by: Yes Allergies reviewed and updated: Yes Medication ordered for bladder instillation: BCG Current pain intensity is: 0 on a 0-10 pain scale. Have you seen any blood in the last 24 hours: No Have you had a temperature greater than 101F in the last 24 hours: No Do you have foul smelling urine or severe burning/urgency that has worsened since the last bladder instillation treatment: No No, Proceed with BCG Any concerns about safety in the home/falls: Not at risk for falls Start Date: 03-22-2025 Treatment number: 2 of 6 Retention Time Last RX: 2 hours Symptoms Post Last RX: None Catheter Used: 16 fr. coude BCG instilled at: 0825 Drained at: 1025 Residual TX: Yes 75 cc. Return to Clinic on : 1 week Patient tolerated treatment well. Patient presents for 2nd BCG treatment. Prepped with betadine and 1 vial in 50 ml of saline instilled in the bladder via #16 Coude' red Mortensen catheter without difficulty. Patient tolerated well. Patient instructed not to void for 2 hours. Printed instructions given to patient. See [facility] for medication sign off. Gail Shipman RN documented in this encounter [facility] 03-31-2025 Hospital Discharg e instructions Patient Education 03/31/2025 09:53:34 Catheter-Directed Thrombolysis, Care After Catheter-Directed Thrombolysis, Care After This sheet gives you information about how to care for yourself after your procedure. Your health care provider may also give you more specific instructions. If you have problems or questions, contact your health care provider. What can I expect after the procedure? After the procedure, it is common to have mild pain around your incision. Follow these instructions at home: Incision care Follow instructions from your health care provider about how to take care of your incision. Make sure you: ?Wash your hands with soap and water before you change your bandage (dressing). If soap and water are not available, use hand staff home therapy rn. ?Change your dressing as told by your health care provider. Check your incision area every day for signs of infection. Check for: ?Redness, swelling, or more pain. ?Fluid or blood. ?Warmth. ?Pus or a bad smell. Medicines Take lhnq-hel-yzkfbnf and prescription medicines only as told by your health care provider. If you are taking blood thinners: ?Talk with your health care provider before you take any medicines that contain aspirin or NSAIDs. These medicines increase your risk for dangerous bleeding. ?Take your medicine exactly as told, at the same time every day. ?Avoid activities that could cause injury or bruising, and follow instructions about how to prevent falls. ?Wear a medical alert bracelet or carry a card that lists what medicines you take. Activity Return to your normal activities as told by your health care provider. Ask your health care provider what activities are safe for you. Do not drive until your health care provider approves. General instructions When sitting or lying down, raise (elevate) your legs above the level of your heart. You can do this by putting pillows under your legs. Wear compression garments on your legs or arm as told by your health care provider. These garments help to prevent blood clots and reduce swelling. Drink enough fluid to keep your urine pale yellow. Do not use any products that contain nicotine or tobacco, such as cigarettes and e-cigarettes. If you need help quitting, ask your health care provider. Do not take baths, swim, or use a hot tub until your health care provider approves. Ask your health care provider if you may take showers. Keep all follow-up visits as told by your health care provider. This is important. Contact a health care provider if: You have redness, swelling, or more pain around your incision. You have fluid or blood coming from your incision. Your incision feels warm to the touch. You have pus or a bad smell coming from your incision. You have chills or a fever. You bleed or bruise easily. You have blood in your urine or stool. Get help right away if: You have any symptoms of a stroke. BE FAST is an easy way to remember the main warning signs of a stroke: ?B - Balance. Signs are dizziness, sudden trouble walking, or loss of balance. ?E - Eyes. Signs are trouble seeing or a sudden change in vision. ?F - Face. Signs are sudden weakness or numbness of the face, or the face or eyelid drooping on one side. ?A - Arms. Signs are weakness or numbness in an arm. This happens suddenly and usually on one side of the body. ?S - Speech. Signs are sudden trouble speaking, slurred speech, or trouble understanding what people say. ?T - Time. Time to call emergency services. Write down what time symptoms started. You have other signs of a stroke, such as: ? A sudden, severe headache with no known cause. ? Nausea or vomiting. ?Seizure. You have bleeding that does not stop after applying pressure with your hands for several minutes. You have chest pain. You have difficulty breathing. You cough up blood. You have redness, warmth, swelling, and pain in an arm or leg. These symptoms may represent a serious problem that is an emergency. Do not wait to see if the symptoms will go away. Get medical help right away. Call your local emergency services (911 in the [place] Do not drive yourself to the hospital. Summary Follow instructions from your health care provider about how to take care of your incision. Contact your health care provider if you have signs of an infected incision, such as redness, swelling, or more pain. If you are taking blood thinners, talk with your health care provider before you take any medicines that contain aspirin or NSAIDs. Follow instructions about how to prevent falls. This information is not intended to replace advice given to you by your health care provider. Make sure you discuss any questions you have with your health care provider. Document Released: 04/26/2018 Document Revised: 05/19/2019 Document Reviewed: 04/26/2018 [employer] Patient Education 2020 [employer] Follow Up Care 03/15/2025 10:20:13 With:LAMBERT GOMEZ Address: [address] [place] [phone] Business (1) When:1-2 days With:LORENA GARG Address: [facility] [address] [place] [phone] Business (1) When:1-2 days [facility] 03-31-2025 Note Discharge Instructions Thank you for allowing [facility] to assist you with your healthcare needs. The following is important discharge information regarding your hospital visit. Your Care Team LAMBERT GOMEZ MD What to do next Follow Up Appointments Follow Up with LAMBERT GOMEZ When:Within 1-2 days Where:[address] [place] [phone] Business (1) Follow Up with LORENA GARG When:Within 1-2 days Where:[facility] [address] [facility] [address] [place] [phone] Business (1) The Following Activity and Diet Have Been Ordered for You Discharge Activity - Ordered -- Lifting Restricted less than 10 pounds, For 1 week, 03/30/25 12:46:00 EDT Discharge Diet - Ordered -- Follow the post-operative/post-procedure diet instructions provided by your physician's office., 03/30/25 12:46:00 EDT The Following Equipment Has Been Ordered for You Discharge Home Equipment Discharge Wound Care - Ordered -- Follow the post-operative/post-procedure wound care instructions provided by your physician's office., 03/30/25 12:46:00 EDT The Following Treatments Have Been Ordered for You Discharge Labs No qualifying data available. Discharge Radiology No qualifying data available. Other Therapies No qualifying data available. Post Acute Orders No qualifying data available. Someone Will Contact You Regarding These Home Health Referrals No home referrals have been ordered for you. No one will call you. Allergies NKA Medications Please ask your primary doctor or pharmacist before taking any other medication not listed, including over the counter drugs, herbal medications, vitamins and or supplements as they may interact with your home medications. What How Much When Instructions Last Dose Unchanged amLODIPine (amLODIPine 10 mg oral tablet) 1 tab(s) by mouth Once a day Unchanged atenolol (atenolol 100 mg oral tablet) 1 tab(s) by mouth Every day Unchanged cholecalciferol (Vitamin D3 50 mcg (2000 intl units) oral capsule) 1 cap by mouth Every day Unchanged clopidogrel (clopidogrel 75 mg oral tablet) 1 tab(s) by mouth Every day Unchanged fenofibrate (fenofibrate 145 mg oral tablet) 1 tab(s) by mouth Once a day Unchanged finasteride (finasteride 5 mg oral tablet) 1 tab(s) by mouth Every day Unchanged lisinopril (lisinopril 20 mg oral tablet) 0.5 tab(s) by mouth Once a day Unchanged metFORMIN (metFORMIN 500 mg oral tablet (IR)) 1 tab(s) by mouth Two (2) times a day Unchanged multivitamin (Multivitamin) 1 tab(s) by mouth Every day Unchanged rosuvastatin (rosuvastatin 10 mg oral tablet) 1 tab(s) by mouth Once a day Please take this list to your next doctor s visit. Bring all medications you take, including over the counter medications, herbals and other supplements with you to your doctor s visit. Patients and families are reminded to discard old lists and to update any records with all medication providers or retail pharmacies. Education Materials Catheter-Directed Thrombolysis, Care After This sheet gives you information about how to care for yourself after your procedure. Your health care provider may also give you more specific instructions. If you have problems or questions, contact your health care provider. What can I expect after the procedure? After the procedure, it is common to have mild pain around your incision. Follow these instructions at home: Incision care Follow instructions from your health care provider about how to take care of your incision. Make sure you: ? Wash your hands with soap and water before you change your bandage (dressing). If soap and water are not available, use hand staff home therapy rn. ? Change your dressing as told by your health care provider. Check your incision area every day for signs of infection. Check for: ? Redness, swelling, or more pain. ? Fluid or blood. ? Warmth. ? Pus or a bad smell. Medicines Take ugai-hjz-quzwjyf and prescription medicines only as told by your health care provider. If you are taking blood thinners: ? Talk with your health care provider before you take any medicines that contain aspirin or NSAIDs. These medicines increase your risk for dangerous bleeding. ? Take your medicine exactly as told, at the same time every day. ? Avoid activities that could cause injury or bruising, and follow instructions about how to prevent falls. ? Wear a medical alert bracelet or carry a card that lists what medicines you take. Activity Return to your normal activities as told by your health care provider. Ask your health care provider what activities are safe for you. Do not drive until your health care provider approves. General instructions When sitting or lying down, raise (elevate) your legs above the level of your heart. You can do this by putting pillows under your legs. Wear compression garments on your legs or arm as told by your health care provider. These garments help to prevent blood clots and reduce swelling. Drink enough fluid to keep your urine pale yellow. Do not use any products that contain nicotine or tobacco, such as cigarettes and e-cigarettes. If you need help quitting, ask your health care provider. Do not take baths, swim, or use a hot tub until your health care provider approves. Ask your health care provider if you may take showers. Keep all follow-up visits as told by your health care provider. This is important. Contact a health care provider if: You have redness, swelling, or more pain around your incision. You have fluid or blood coming from your incision. Your incision feels warm to the touch. You have pus or a bad smell coming from your incision. You have chills or a fever. You bleed or bruise easily. You have blood in your urine or stool. Get help right away if: You have any symptoms of a stroke. BE FAST is an easy way to remember the main warning signs of a stroke: ? B - Balance. Signs are dizziness, sudden trouble walking, or loss of balance. ? E - Eyes. Signs are trouble seeing or a sudden change in vision. ? F - Face. Signs are sudden weakness or numbness of the face, or the face or eyelid drooping on one side. ? A - Arms. Signs are weakness or numbness in an arm. This happens suddenly and usually on one side of the body. ? S - Speech. Signs are sudden trouble speaking, slurred speech, or trouble understanding what people say. ? T - Time. Time to call emergency services. Write down what time symptoms started. You have other signs of a stroke, such as: ? A sudden, severe headache with no known cause. ? Nausea or vomiting. ? Seizure. You have bleeding that does not stop after applying pressure with your hands for several minutes. You have chest pain. You have difficulty breathing. You cough up blood. You have redness, warmth, swelling, and pain in an arm or leg. These symptoms may represent a serious problem that is an emergency. Do not wait to see if the symptoms will go away. Get medical help right away. Call your local emergency services (911 in the [place] Do not drive yourself to the hospital. Summary Follow instructions from your health care provider about how to take care of your incision. Contact your health care provider if you have signs of an infected incision, such as redness, swelling, or more pain. If you are taking blood thinners, talk with your health care provider before you take any medicines that contain aspirin or NSAIDs. Follow instructions about how to prevent falls. This information is not intended to replace advice given to you by your health care provider. Make sure you discuss any questions you have with your health care provider. Document Released: 04/26/2018 Document Revised: 05/19/2019 Document Reviewed: 04/26/2018 [employer] Patient Education 2020 [employer]. Additional Information VACCINATE! IT SAVES LIVES! Members of the community who have not yet received the COVID-19 vaccine and would like to receive it can visit one of [facility] vaccine clinics. There are many vaccine clinic locations within the [facility]. For locations and available times, please visit https://gettheshot.coronavirus.o nvo.gov/. It is important to note that some COVID mobile vaccine clinics are held outdoors and may be canceled in rainy or stormy conditions. To learn more about pediatric vaccinations (ages 5-11), we invite you to visit the [employer] webpage. [email or web address]/p [email or web address]-Nbuqc-Yepthyzhxwm-Freq [email or web address]-[email or web address] To learn more about the COVID-19 vaccine, we invite you to visit the CDC website for a list of frequently asked questions.https://www.cdc.gov/co ronavirus/2019-ncov/vaccines/faq .html isango! Patient Portal Access Instructions: Stay connected with your healthcare team and access your personal medical information anytime with the isango! Patient Portal. Please follow the directions below to create your isango! account: 1.Access the email account you provided upon registration to the hospital/physician office.2.Look for an invitation email from [facility].3.Open the email and access the invitation link: Accept Invitation to isango!.4.Fill in the required arshad to create your account. To access your account, visit [employer]. Click the blue button labeled Access Patient Portal and then log in with the username and password that you created in the steps above. You will be able to view your test results, lab results, a summary of your visits, upcoming appointments and more. There is also a convenient messaging option where you can send secure messages to your provider. In addition, you will have the ability to download any documents or summaries to your computer and/or send the information securely to a physician. Remember that your healthcare information is confidential, so carefully consider who you will allow to register on the [facility] for access to your information. You can also access the [facility] on the [facility] mohamud. Simply click on Patient Portal and then log into your account. If you would like to receive a full copy of your medical records, please contact the [facility] Medical Records Department by calling [phone], Wednesday through Wednesday between 8 a.m. and 4:30 p.m. HOW TO SAFELY DISPOSE OF PRESCRIPTION MEDICATIONS Please use one of the following methods to safely dispose of your unused medications. 1.Use a drug disposal kit: the drug disposal pouch allows you to safely discard your old and unused drugs. Ask your nurse to give you one when you are discharged.2.Visit a local take-back location: Many local pharmacies and police departments have programs that collect old and unwanted prescription drugs. Call your local pharmacy or go to http://[employer].Dimmi/9V1Cg2d to find one close to you.3.Make use of household items: Use cat litter or old coffee grounds to dispose medications if other options are not available. Mix your drugs with these household products, seal them in an airtight container and throw it into the garbage. Call [facility]: [phone] to be sure your drugs can be disposed of in this way. Some medicines may require a different approach.4.Never flush your medications down the toilet. IF YOU HAVE BEEN PRESCRIBED AN OPIOID FOR PAIN If you have been prescribed an opioid (such as hydrocodone, oxycodone or morphine), it is critical to understand the possible side effects and risks of opioid pain medications. Even when taken as directed, opioids can have several side effects including: Tolerance, meaning you might need to take more of a medication for the same pain relief. Nausea, vomiting and/or constipation. Sleepiness, dizziness, dry mouth, confusion, depression or itching. Physical dependence, meaning you have withdrawal symptoms when a medication is stopped, can develop within a few days. KNOW YOUR RESPONSIBILITIES It is important to know exactly how much and how often to take the opioid pain medications you are prescribed. Never take opioids in higher amounts or more often than prescribed. Do not combine opioids with alcohol or other drugs that cause drowsiness, such as benzodiazepines, also known as benzos, including diazepam and alprazolam, muscle relaxants or sleep aids. Never sell or share prescription opioids. This is illegal. Store opioids in a secure place and out of reach of others (including children, family, friends and visitors). The last page of this document has been signed and retained as a CHART COPY. Signatures Patient Education Materials Catheter-Directed Thrombolysis, Care After Medication Leaflets My discharge plan and instructions have been reviewed and explained to me and I,TRACY GORMAN understand my current condition and have read and understand these discharge instructions. I have received a written copy of the plan/instructions. If I have questions, I am aware that I should contact my doctor. Patient/Real Estate Marketing Coordinator Signature: Date/Time: Relationship to Patient: Witness Name/Signature: Date/Time: [facility] 03-29-2025 Note Exam Date Time Procedure Performing Provider Status 03/29/25 11:23 AM IR Arteriogram Extremity Lower Right Modified [id number] ORIGINAL Images acquired, not reported on this accession number. [id number] Note* Exam Date Time Procedure Performing Provider Status 03/29/25 7:35 AM Electrocardiogram - EKG - CV CHANTAL THURSTON MD; Auth (Verified) ECG Final Report SINUS RHYTHM RIGHT BUNDLE BRANCH BLOCK LVH WITH IVCD AND SECONDARY REPOL ABNRM Electronic Signature: CHANTAL THURSTON MD 03/30/2025 17:52:41 [id number] Telephone encounter Note* Telephone Encounter - Gail Shipman RN - 03/27/2025 8:40 AM EDT Spoke with Dr. Anne and he is advising waiting a week and holding BCG this week. Spoke with patient and he will hold. Scheduled another at the end of the treatments. Patient agreeable. Closing. [facility]07-15-2025 Miscellaneous Notes* Telephone Encounter - Gail Shipman RN - 03/27/2025 8:40 AM EDT Spoke with Dr. Anne and he is advising waiting a week and holding BCG this week. Spoke with patient and he will hold. Scheduled another at the end of the treatments. Patient agreeable. Closing. * Telephone Encounter - Gail Shipman RN - 03/26/2025 9:22 AM EDT Should we hold for a week to not immunosuppress? * Telephone Encounter - Gail Shipman RN - 03/23/2025 12:51 PM EDT Spoke with , patient doing fine but pretty tired today. Resting. Please advise on below. * Telephone Encounter - Gail Shipman RN - 03/23/2025 11:51 AM EDT Patient is scheduled for 2nd BCG on , but he has a vascular surgery scheduled that day. He was requesting to get 2nd BCG a day early on Wednesday. You good with Wednesday or should we hold a week to not have any symptoms or immunosuppression for surgery? He states it is outpatient and local numbing, not general anesthesia. Please Advise. documented in [facility]-2025 Telephone encounter Note * Telephone Encounter - Gail Shipman RN - 03/26/2025 9:22 AM EDT Should we hold for a week to not immunosuppress? [facility]07-11-2025 Telephone encounter Note* Telephone Encounter - Gail Shipman RN - 03/23/2025 12:51 PM EDT Spoke with , patient doing fine but pretty tired today. Resting. Please advise on below. [facility]07-11-2025 Telephone encounter Note* Telephone Encounter - Gail Shipman RN - 03/23/2025 11:51 AM EDT Patient is scheduled for 2nd BCG on , but he has a vascular surgery scheduled that day. He was requesting to get 2nd BCG a day early on Wednesday. You good with Wednesday or should we hold a week to not have any symptoms or immunosuppression for surgery? He states it is outpatient and local numbing, not general anesthesia. Please Advise. T [facility]07-10-2025 NoteHNO ID: [id number] Author: GAIL SHIPMAN RN Service: ? Author Type: Registered Nurse Type: Progress Notes Filed: 03/22/2025 09:35 Note Text: BLADDER INSTILLATION Patient ID with two (2) identifiers verified by: Yes Allergies reviewed and updated: Yes Medication ordered for bladder instillation: BCG Current pain intensity is: 0 on a 0-10 pain scale. Have you seen any blood in the last 24 hours: No Have you had a temperature greater than 101F in the last 24 hours: No Do you have foul smelling urine or severe burning/urgency that has worsened since the last bladder instillation treatment: No No, Proceed with BCG Any concerns about safety in the home/falls: Not at risk for falls Start Date: 03-22-2025 Treatment number: 1 of 6 Retention Time Last RX: Hold for 2 hours, first dose Symptoms Post Last RX: first dose Catheter Used: 16 fr. coude BCG instilled at: 0840 Drained at: 1040 Residual TX: Yes 100 cc. Return to Clinic on : 1 week Patient tolerated treatment well. Patient presents for 1st BCG treatment. Prepped with betadine and 1 vial in 50 ml of saline instilled in the bladder via #16 Coude' red Mortensen catheter without difficulty. Patient tolerated well. Patient instructed not to void for 2 hours. Printed instructions given to patient. [facility] History of Present illness Narrative* Gail Shipman RN - 03/22/2025 9:20 AM EDT BLADDER INSTILLATION Patient ID with two (2) identifiers verified by: Yes Allergies reviewed and updated: Yes Medication ordered for bladder instillation: BCG Current pain intensity is: 0 on a 0-10 pain scale. Have you seen any blood in the last 24 hours: No Have you had a temperature greater than 101F in the last 24 hours: No Do you have foul smelling urine or severe burning/urgency that has worsened since the last bladder instillation treatment: No No, Proceed with BCG Any concerns about safety in the home/falls: Not at risk for falls Start Date: 03-22-2025 Treatment number: Retention Time Last RX: Hold for 2 hours, first dose Symptoms Post Last RX: first dose Catheter Used: 16 fr. coude BCG instilled at: 0840 Drained at: 1040 Residual TX: Yes 100 cc. Return to Clinic on : 1 week Patient tolerated treatment well. Patient presents for 1st BCG treatment. Prepped with betadine and 1 vial in 50 ml of saline instilled in the bladder via #16 Coude' red Mortensen catheter without difficulty. Patient tolerated well. Patient instructed not to void for 2 hours. Printed instructions given to patient. Gail Shipman RN documented in this encounterUniversity [facility]-2025 Telephone encounter Note * Telephone Encounter - Gail Shipman RN - 03/20/2025 11:06 AM EDT Spoke with Mel and went over instructions and they will be able to review the My Chart message sent. Aware to call me if any questions. Verbalizes understanding. [facility]07-08-2025 Miscellaneous Notes* Telephone Encounter - Gail Shipman RN - 03/20/2025 11:06 AM EDT Spoke with Mel and went over instructions and they will be able to review the My Chart message sent. Aware to call me if any questions. Verbalizes understanding. documented in this encounterUniversity [facility]als [facility] System05-22-2025 NoteHNO ID: [id number] Author: TAMI ANNE JR, MD Service: ? Author Type: Physician Type: Progress Notes Filed: 02/01/2025 11:45 Note Text: ESTABLISHED PATIENT OFFICE VISIT HPI Tracy Gorman is a 74 year old male who presents sp bladder biopsy. Path low grade Ta. First recurrence. Initial path was high grade T1. Has done and tolerated bcg well. Doing well after surgery LAB: Creatinine Date Value Ref Range Status 01/23/2025 1.08 0.73 - 1.22 mg/dL Final PSA (ng/mL) Date Value 07/30/2021 0.8 Glucose, Urine Date Value 01/26/2022 Negative 07/30/2021 Negative mg/dL Bilirubin, Urine (no units) Date Value 01/26/2022 Negative 07/30/2021 Negative Ketones, Urine (no units) Date Value 01/26/2022 Negative 07/30/2021 Negative Specific [place], Ur (no units) Date Value 01/26/2022 1.017 07/30/2021 1.025 Hemoglobin/Blood,Ur Date Value 01/26/2022 3+ 07/30/2021 3+ pH, Urine (no units) Date Value 01/26/2022 6.0 07/30/2021 5.0 Protein, Urine (no units) Date Value 01/26/2022 2+ 07/30/2021 3+ Nitrites (no units) Date Value 01/26/2022 Negative 07/30/2021 Negative WBC, Urine Date Value 01/26/2022 0-5 /HPF 07/30/2021 0-5 /HPF MEDICATIONS: fenofibrate nanocrystallized (TRICOR) 145 mg tablet Take 1 tablet by mouth once daily. amLODIPine (NORVASC) 10 mg tablet Take 1 tablet by mouth once daily. atenolol (TENORMIN) 100 mg tablet Take 1 tablet by mouth once daily. lisinopril (ZESTRIL) 20 mg tablet Take 0.5 tablets by mouth once daily. metFORMIN (GLUCOPHAGE) 500 mg tablet Take 1 tablet by mouth two times a day with meals. rosuvastatin (CRESTOR) 10 mg tablet Take 1 tablet by mouth once daily. finasteride (PROSCAR) 5 mg tablet Take 1 tablet by mouth once daily. clopidogrel (PLAVIX) 75 mg tablet Take 75 mg by mouth once daily. Cholecalciferol, Vitamin D3, (VITAMIN D) 1,000 unit cap Take 1 capsule by mouth twice daily. Multivitamin capsule Take 1 capsule by mouth once daily. REVIEW OF SYSTEMS Review of Systems Constitutional: Negative. Respiratory: Negative. Cardiovascular: Negative. Gastrointestinal: Negative. Genitourinary: Negative. Skin: Negative. Neurological: Negative. Psychiatric/Behavioral: Negative. HISTORIES PAST MEDICAL HISTORY Diagnosis Date Abdominal aortic aneurysm (AAA) without rupture CT flank 01/21/21 Basal cell carcinoma (BCC) of skin of left ear 01/2022 Benign prostatic hyperplasia without lower urinary tract symptoms Chronic kidney disease (CKD), stage III (moderate) (HCC) Dr. Ortiz CML (chronic myeloid leukemia) (HCC) Dr. Cárdenas Hemorrhoid HTN (hypertension) Hyperlipidemia Leukocytosis Malignant neoplasm of bladder (HCC) Dr. Anne MPN (myeloproliferative neoplasm) (HCC) PAD (peripheral artery disease) Dr. iPtts Prediabetes Tobacco use disorder Vitamin D insufficiency FAMILY HISTORY Problem Relation Age of Onset Cancer Mother 80 Lung Cancer Hypertension Mother Lipids Mother Lipids Father Heart Failure Father Prostate Cancer Brother SOCIAL HISTORY Social History Tobacco Use Smoking status: Former Current packs/day: 0.00 Average packs/day: 0.5 packs/day for 48.8 years (24.4 ttl pk-yrs) Types: Cigarettes Start date: 09/1975 Quit date: 06/27/2024 Years since quittin.6 Smokeless tobacco: Never Vaping Use Vaping status: Never Used Substance Use Topics Alcohol use: No Drug use: No PHYSICAL EXAMINATION General appearance: Well appearing, alert, in no acute distress, and well-hydrated, well nourished Skin: Skin color, texture, turgor normal, no suspicious rashes or lesions Respiratory:+ effort Cardiovascular: Not examined GI: Normal abdominal exam, Abdomen soft, non-tender. No masses, organomegaly Musculoskeletal: Negative Neuro: Negative Genitourinary: not examined Impression: (C67.9) Malignant neoplasm of urinary bladder, unspecified site (HCC) (primary encounter diagnosis) Plan: Induction bcg 3 months cysto Tami Anne Jr, MD 02/01/2025[facility]05-16-2025 Instructions* Patient Instructions* Reji Smith MD - 01/26/2025 3:21 PM EDT An EKG was performed today to check your heart s rhythm and help understand your increased fatigue. You are being referred to Dr. Seo at the [facility] for a cardiology evaluation. Please monitor your symptoms (such as numbness or worsening fatigue) and let our office know if younotice any significant changes. documented in this encounterUniversity [facility]als Health System05-16-2025 History of Present illness Narrative* Reji Smith MD - 01/26/2025 2:51 PM EDT This note was created using AfterYesriter. Subjective Patient presents with: Numbness: L upper part of arm. Ongoing X 2 days. Comes and goes. Fatigue Tracy Gorman is a 74 year old male. Recording using liveBooks software for draft documentation of the visit was discussed with the patient/authorized route service representative; all questions welcomed and answered. Patient/authorized route service representative agreed to proceed Left Arm Paresthesia: - Onset 3 days ago, described as intermittent numbness and tingling. - Primarily localized to the upper arm, with occasional involvement of the fingers. - No associated weakness or pain; able to perform tasks such as moving mulch without difficulty. - No symptoms upon waking; symptoms develop during daily activities. - Denies headaches, dizziness, or neck pain. - Recent blood draw and IV placement in the left arm. Fatigue: - Onset 3 days ago, following recent bladder surgery for lesion removal. - Noted increased fatigue during usual yard work activities, requiring more frequent breaks. - Denies dyspnea, chest pain, or pedal edema. - No fever reported. - History of bone marrow transplant in 2018; under regular monitoring by oncologist and intake rn. DM: - Recent blood work showed elevated glucose levels and HbA1c. - Working on reducing soda intake. Review of Systems Constitutional: (-) fever, (+) fatigue Head: (-) headaches Neck: (-) neck pain Cardiovascular: (-) chest pain, (-) pedal edema Respiratory: (-) shortness of breath Musculoskeletal: (+) leg discomfort Neurological: (+) left arm numbness, (+) left arm tingling, (-) dizziness, (-) weakness ACTIVE PROBLEM LIST Cml (Chronic Myeloid Leukemia) ([facility]) S/P Allogeneic Bone Marrow Transplant (Hcc) Tobacco Use Disorder Electrolyte and Fluid Disorder Immunodeficiency (Hcc) Pad (Peripheral Artery Disease) Mpn (Myeloproliferative Neoplasm) (Hcc) Hyperlipidemia Htn (Hypertension) Prediabetes Benign Prostatic Hyperplasia Without Lower Urinary Tract Symptoms Abdominal Aortic Aneurysm (Aaa) Without Rupture Chronic Kidney Disease (Ckd), Stage Iii (Moderate) ([facility]) Preoperative Examination Malignant Neoplasm of Urinary Bladder (Hcc) Vitamin D Insufficiency Atypical Chronic Myeloid Leukemia, 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 amLODIPine (NORVASC) 10 mg tablet Take 1 tablet by mouth once daily. atenolol (TENORMIN) 100 mg tablet Take 1 tablet by mouth once daily. lisinopril (ZESTRIL) 20 mg tablet Take 0.5 tablets by mouth once daily. metFORMIN (GLUCOPHAGE) 500 mg tablet Take 1 tablet by mouth two times a day with meals. rosuvastatin (CRESTOR) 10 mg tablet Take 1 tablet by mouth once daily. finasteride (PROSCAR) 5 mg tablet Take 1 tablet by mouth once daily. iv contrast (will be provided with radiology test) CT Urogram WO/W Inject, intravenously, once for 1 dose.No IV access, insert saline lock prior to the beginning of sedation, infusion, injection of imaging exam. Discontinue saline lock post exam. If Pt. has a central line or IVAD, may access for administration according to line specific nursing protocol. Once exam is complete flush line and de-access according to line specific nursing protocol in the CT contrast administration guidelines link. clopidogrel (PLAVIX) 75 mg tablet Take 75 mg by mouth once daily. Cholecalciferol, Vitamin D3, (VITAMIN D) 1,000 unit cap Take 1 capsule by mouth twice daily. Multivitamin capsule Take 1 capsule by mouth once daily. No current facility-administered medications for this visit. Objective BP 106/62 Pulse 67 Ht 185.4 cm (6' 1) Wt 86 kg (189 lb 9.5 oz) SpO2 98% BMI 25.01 kg/m Physical Exam Constitutional: General: He is not in acute distress. Appearance: He is not ill-appearing or diaphoretic. HENT: Head: Normocephalic. Mouth/Throat: Mouth: Mucous membranes are moist. Eyes: Conjunctiva/sclera: Conjunctivae normal. Cardiovascular: Rate and Rhythm: Normal rate and regular rhythm. Pulses: Normal pulses. Heart sounds: No murmur heard. No gallop. Pulmonary: Effort: No respiratory distress. Breath sounds: No wheezing or rales. Musculoskeletal: Cervical back: Neck supple. No tenderness. Right lower leg: No edema. Left lower leg: No edema. Neurological: Mental Status: He is alert. Cranial Nerves: No cranial nerve deficit. Sensory: Sensory deficit present. Motor: No weakness. Gait: Gait normal. Deep Tendon Reflexes: Reflexes normal. Comments: Decreased sensation left lateral arm (C5, C6). Negative Tinel's test. Equivocal Phalen's test. Negative for any weakness. EKG RESULTS: sinus bradycardia, LBBB, RBBB, left axis deviation, LVH, septal infarct pattern. Inferolateral asymmetric T inversions appear new compared to 2018. Assessment and Plan 1. Fatigue, unspecified type - ICD9: 780.79, ICD10: R53.83 (primary diagnosis) Post surgery? Silent ischemia? - ECG COMPLETE - CONSULT TO CARDIOLOGY 2. Neuropathy, arm, left - ICD9: 354.9, ICD10: G56.92 Etiology not clear. 3. Type 2 diabetes mellitus with diabetic chronic kidney disease, unspecified CKD stage, unspecified whether roasterman insulin use (HCC) - ICD9: 250.40, 585.9, ICD10: E11.22 - Controlled 4. Abnormal EKG - ICD9: 794.31, ICD10: R94.31 - He has significant risk factors for ASCVD. - CONSULT TO CARDIOLOGY - Patient indicated understanding and willingness to follow recommendations. - See printed instructions or information. Reji Smith MD documented in this encounterUniversity Hospitals Health System05-16-2025 NoteHNO ID: [id number] Author: REJI SMITH MD Service: ? Author Type: Physician Type: Progress Notes Filed: 01/26/2025 15:31 Note Text: This note was created using [employer]. Subjective Patient presents with: Numbness: L upper part of arm. Ongoing X 2 days. Comes and goes. Fatigue Tracy Gorman is a 74 year old male. Recording using liveBooks software for draft documentation of the visit was discussed with the patient/authorized route service representative; all questions welcomed and answered. Patient/authorized route service representative agreed to proceed Left Arm Paresthesia: - Onset 3 days ago, described as intermittent numbness and tingling. - Primarily localized to the upper arm, with occasional involvement of the fingers. - No associated weakness or pain; able to perform tasks such as moving mulch without difficulty. - No symptoms upon waking; symptoms develop during daily activities. - Denies headaches, dizziness, or neck pain. - Recent blood draw and IV placement in the left arm. Fatigue: - Onset 3 days ago, following recent bladder surgery for lesion removal. - Noted increased fatigue during usual yard work activities, requiring more frequent breaks. - Denies dyspnea, chest pain, or pedal edema. - No fever reported. - History of bone marrow transplant in 2018; under regular monitoring by oncologist and intake rn. DM: - Recent blood work showed elevated glucose levels and HbA1c. - Working on reducing soda intake. Review of Systems Constitutional: (-) fever, (+) fatigue Head: (-) headaches Neck: (-) neck pain Cardiovascular: (-) chest pain, (-) pedal edema Respiratory: (-) shortness of breath Musculoskeletal: (+) leg discomfort Neurological: (+) left arm numbness, (+) left arm tingling, (-) dizziness, (-) weakness ACTIVE PROBLEM LIST Cml (Chronic Myeloid Leukemia) (Hcc) S/P Allogeneic Bone Marrow Transplant (Hcc) Tobacco Use Disorder Electrolyte and Fluid Disorder Immunodeficiency (Hcc) Pad (Peripheral Artery Disease) Mpn (Myeloproliferative Neoplasm) (Hcc) Hyperlipidemia Htn (Hypertension) Prediabetes Benign Prostatic Hyperplasia Without Lower Urinary Tract Symptoms Abdominal Aortic Aneurysm (Aaa) Without Rupture Chronic Kidney Disease (Ckd), Stage Iii (Moderate) (Hcc) Preoperative Examination Malignant Neoplasm of Urinary Bladder (Hcc) Vitamin D Insufficiency Atypical Chronic Myeloid Leukemia, 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 amLODIPine (NORVASC) 10 mg tablet Take 1 tablet by mouth once daily. atenolol (TENORMIN) 100 mg tablet Take 1 tablet by mouth once daily. lisinopril (ZESTRIL) 20 mg tablet Take 0.5 tablets by mouth once daily. metFORMIN (GLUCOPHAGE) 500 mg tablet Take 1 tablet by mouth two times a day with meals. rosuvastatin (CRESTOR) 10 mg tablet Take 1 tablet by mouth once daily. finasteride (PROSCAR) 5 mg tablet Take 1 tablet by mouth once daily. iv contrast (will be provided with radiology test) CT Urogram WO/W Inject, intravenously, once for 1 dose.No IV access, insert saline lock prior to the beginning of sedation, infusion, injection of imaging exam. Discontinue saline lock post exam. If Pt. has a central line or IVAD, may access for administration according to line specific nursing protocol. Once exam is complete flush line and de-access according to line specific nursing protocol in the CT contrast administration guidelines link. clopidogrel (PLAVIX) 75 mg tablet Take 75 mg by mouth once daily. Cholecalciferol, Vitamin D3, (VITAMIN D) 1,000 unit cap Take 1 capsule by mouth twice daily. Multivitamin capsule Take 1 capsule by mouth once daily. No current facility-administered medications for this visit. Objective BP 106/62 Pulse 67 Ht 185.4 cm (6' 1) Wt 86 kg (189 lb 9.5 oz) SpO2 98% BMI 25.01 kg/m? Physical Exam Constitutional: General: He is not in acute distress. Appearance: He is not ill-appearing or diaphoretic. HENT: Head: Normocephalic. Mouth/Throat: Mouth: Mucous membranes are moist. Eyes: Conjunctiva/sclera: Conjunctivae normal. Cardiovascular: Rate and Rhythm: Normal rate and regular rhythm. Pulses: Normal pulses. Heart sounds: No murmur heard. No gallop. Pulmonary: Effort: No respiratory distress. Breath sounds: No wheezing or rales. Musculoskeletal: Ce (more content not included)...[facility]05-16-2025 Telephone encounter Note* Telephone Encounter - Rebecca Biggs LPN - 01/26/2025 2:08 PM EDT Patient placed with Dr Smith for 240p today. Rebecca Biggs LPN [facility]05-16-2025 Miscellaneous Notes* Telephone Encounter - Rebecca Biggs LPN - 01/26/2025 2:08 PM EDT Patient placed with Dr Smith for 240p today. Rebecca Biggs LPN * Telephone Encounter - Lambert Gomez MD - 01/26/2025 1:54 PM EDT I do not have appointments available at this time. Can go to if he does show up. * Telephone Encounter - Yusef Veloz, GEORGI - 01/26/2025 1:45 PM EDT Called pt on the triage scheduled for 1:40. reports pt got that message on his MyChart and thought Dr. Gomez wanted to see him at 1:40 and will be here any minute. * Telephone Encounter - Rebecca Biggs LPN - 01/26/2025 1:28 PM EDT Scheduled appt with triage nurse schedule. Rebecca Biggs LPN * Telephone Encounter - Lambert Gomez MD - 01/26/2025 10:45 AM EDT Needs triaged. I would like to know when he is getting this. If it occurs with exertion, I would recommend ER now. I would recommend additional OV to evaluate. He does have several risk factors for his heart and ifhe is having pain in his chest with radiation to neck/jaw/arm, SOB, lightheadedness, nausea, sweating, or palpitations he needs to call 911 immediately. Otherwise, would have him rest and take OTC analgesics for pain and see us next week. * Telephone Encounter - Yusef Veloz RN - 01/26/2025 10:20 AM EDT Patient reports he is having left upper arm numbness off and on for 2 days now, and feeling more fatigued. States he did not have these symptoms when he saw Cleopatra on 01/23/25. No CP, No SOB, No edema, No neck issues, No shoulder issues, No dizziness. States he feels perfectly fine. Asking pcp to place a referral for him to see a records and tape recordings engineer. States he has not seen a records and tape recordings engineer, and would like to establish with one. Advised patient if he develops CP, SOB, more numbness or tingling, dizziness to go to ER. Pt is agreeable and states he would do that. documented in this encounterUniversity Hospitals Health System05-16-2025 Telephone encounter Note * Telephone Encounter - Lambert Gomez MD - 01/26/2025 1:54 PM EDT I do not have appointments available at this time. Can go to EC if he does show up. [facility] Telephone encounter Note* Telephone Encounter - Yusef Veloz RN - 01/26/2025 1:45 PM EDT Called pt on the triage scheduled for 1:40. reports pt got that message on his MyChart and thought Dr. Gomez wanted to see him at 1:40 and will be here any minute. [facility]05-16-[facility] Telephone encounter Note* Telephone Encounter - Rebecca Biggs LPN - 01/26/2025 1:28 PM EDT Scheduled appt with triage nurse schedule. Rebecca Biggs LPN [facility]05-16-[facility] Telephone encounter Note* Telephone Encounter - Lambert Gomez MD - 01/26/2025 10:45 AM EDT Needs triaged. I would like to know when he is getting this. If it occurs with exertion, I would recommend ER now. I would recommend additional OV to evaluate. He does have several risk factors for his heart and ifhe is having pain in his chest with radiation to neck/jaw/arm, SOB, lightheadedness, nausea, sweating, or palpitations he needs to call 911 immediately. Otherwise, would have him rest and take OTC analgesics for pain and see us next week. [facility] Telephone encounter Note* Telephone Encounter - Madie Costello LPN - 01/26/2025 10:38 AM EDT Patient telephoned and notified of results and recommendations.Voices understanding. Madie Costello LPN [facility]05-16-[facility]25 Miscellaneous Notes* Telephone Encounter - Madie Costello LPN - 01/26/2025 10:38 AM EDT Patient telephoned and notified of results and recommendations.Voices understanding. Madie Costello LPN * Telephone Encounter - Madie Costello LPN - 01/26/2025 10:36 AM EDT ----- Message from Cleopatra Greenwood APRN.LINEN ROOM SUPERVISOR sent at 01/26/2025 6:46 AM EDT ----- A1c has increased- recommend working on eating lower carbohydrate diet and aiming for at least 150 minutes of exercise per week. Continue Metformin. Triglycerides have increased as well- continue theTricor, Crestor, diet and exercise as mentioned. U dank shows increased albumin/creat ration likely due to increase in blood sugars. The rest of his blood work is in acceptable ranges. Cleopatra Greenwood APRN.LINEN ROOM SUPERVISOR documented in [place] encounterPatricia [place] [id number] Telephone encounter Note * Telephone Encounter - Madie Costello LPN - 01/26/2025 10:36 AM EDT ----- Message from Cleopatra Greenwood APRN.CNP sent at 01/26/2025 6:46 AM EDT ----- A1c has increased- recommend working on eating lower carbohydrate diet and aiming for at least 150 minutes of exercise per week. Continue Metformin. Triglycerides have increased as well- continue theTricor, Crestor, diet and exercise as mentioned. U rine shows increased albumin/creat ration likely due to increase in blood sugars. The rest of his blood work is in acceptable ranges. Cleopatra Greenwood APRN.JOAO [facility]05-16-[facility] Telephone encounter Note* Telephone Encounter - Yusef Veloz RN - 01/26/2025 10:20 AM EDT Patient reports he is having left upper arm numbness off and on for 2 days now, and feeling more fatigued. States he did not have these symptoms when he saw Cleopatra on 01/23/25. No CP, No SOB, No edema, No neck issues, No shoulder issues, No dizziness. States he feels perfectly fine. Asking pcp to place a referral for him to see a records and tape recordings engineer. States he has not seen a records and tape recordings engineer, and would like to establish with one. Advised patient if he develops CP, SOB, more numbness or tingling, dizziness to go to ER. Pt is agreeable and states he would do that. [facility]05-[facility] History of Present illness Narrative* Cleopatra Greenwood APRN.CNP - 01/23/2025 8:40 AM EDT 01/22/2025 Patient presents with: F/U 6 months SUBJECTIVE: This is a 74 year old that is here today for Above Complaints. HTN: Patient is compliant with meds Yes Monitors bp at home: occasional . Denies side effects: Yes. Chest pain: No. Dyspnea: No. Edema: No. Palpitations: No. Syncope: No. Headache: No. Dizziness: No. HYPERLIPIDEMIA: Patient is taking medications: Yes. Patient is watching diet: Yes. Patient denies myalgias: Yes. Patient denies gi upset: Yes Prediabetes: taking Metformin as prescribed without side effects. Denies visual changes, polyuria or polydipsia BPH: taking Proscar as prescribed but has been out for about three months. Denies nocturia, straining to urinate, incomplete emptying, dysuria or hematuria Bladder cancer: Following with Dr. Anne with last office visit on Wednesday. Had biopsy to bladder lesion - awaiting results PAST MEDICAL HISTORY Diagnosis Date Abdominal aortic aneurysm (AAA) without rupture CT flank 01/21/21 Basal cell carcinoma (BCC) of skin of left ear 01/2022 Benign prostatic hyperplasia without lower urinary tract symptoms Chronic kidney disease (CKD), stage III (moderate) (HCC) Dr. Ortiz CML (chronic myeloid leukemia) (HCC) Dr. Cárdenas Hemorrhoid HTN (hypertension) Hyperlipidemia Leukocytosis Malignant neoplasm of bladder (HCC) Dr. Anne MPN (myeloproliferative neoplasm) (HCC) PAD (peripheral artery disease) Dr. Ptits Prediabetes Tobacco use disorder Vitamin D insufficiency ALLERGIES Patient has no known allergies. MEDICATIONS Current Outpatient Medications Medication Sig amLODIPine (NORVASC) 10 mg tablet Take 1 tablet by mouth once daily. atenolol (TENORMIN) 100 mg tablet Take 1 tablet by mouth once daily. fenofibrate nanocrystallized (TRICOR) 145 mg tablet Take 1 tablet by mouth once daily. finasteride (PROSCAR) 5 mg tablet Take 1 tablet by mouth once daily. lisinopril (ZESTRIL) 20 mg tablet Take 0.5 tablets by mouth once daily. metFORMIN (GLUCOPHAGE) 500 mg tablet Take 1 tablet by mouth two times a day with meals. rosuvastatin (CRESTOR) 10 mg tablet Take 1 tablet by mouth once daily. iv contrast (will be provided with radiology test) CT Urogram WO/W Inject, intravenously, once for 1 dose.No IV access, insert saline lock prior to the beginning of sedation, infusion, injection of imaging exam. Discontinue saline lock post exam. If Pt. has a central line or IVAD, may access for administration according to line specific nursing protocol. Once exam is complete flush line and de-access according to line specific nursing protocol in the CT contrast administration guidelines link. clopidogrel (PLAVIX) 75 mg tablet Take 75 mg by mouth once daily. Cholecalciferol, Vitamin D3, (VITAMIN D) 1,000 unit cap Take 1 capsule by mouth twice daily. Multivitamin capsule Take 1 capsule by mouth once daily. No current facility-administered medications for this visit. Medications and allergies reviewed by this provider. SOCIAL HISTORY Social History Tobacco Use Smoking status: Former Current packs/day: 0.00 Average packs/day: 0.5 packs/day for 48.8 years (24.4 ttl pk-yrs) Types: Cigarettes Start date: 09/1975 Quit date: 06/27/2024 Years since quittin.5 Smokeless tobacco: Never Vaping Use Vaping status: Never Used Substance Use Topics Alcohol use: No Drug use: No REVIEW OF SYSTEMS All other reviewed and negative other than HPI. OBJECTIVE: BP 131/84 Pulse (!) 57 Resp 18 Wt 85.8 kg (189 lb 3.2 oz) SpO2 96% BMI 24.96 kg/m . Vitalsigns reviewed by this provider. APPEARANCE Well appearing, alert, in no acute distress, well-hydrated, well nourished. EYES conjunctiva and sclera normal. HEART RRR with normal S1 and S2, no murmurs, no gallops, no JVD appreciated LUNG clear to auscultation. No wheezes, rhonchi or rales EXTREMITIES Extremities normal, No deformities, No skin discoloration, and No edema SKIN Skin color, texture, turgor normal, no suspicious rashes or lesions to exposed skin Latest Ref Rng 07/26/2024 Protein, Total 6.3 - 8.0 g/dL 7.5 Albumin 3.9 - 4.9 g/dL 4.6 Calcium 8.5 - 10.2 mg/dL 10.2 Bilirubin, Total 0.2 - 1.3 mg/dL 0.4 Alkaline Phosphatase 38 - 113 U/L 56 AST 14 - 40 U/L 23 ALT 10 - 54 U/L 12 Glucose 74 - 99 mg/dL 129 (H) BUN 9 - 24 mg/dL 25 (H) Creatinine 0.73 - 1.22 mg/dL 1.10 Sodium 136 - 144 mmol/L 142 Potassium 3.7 - 5.1 mmol/L 4.5 Chloride 98 - 107 mmol/L 106 CO2 22 - 30 mmol/L 25 Anion Gap 8 - 15 mmol/L 11 eGFR >=60 mL/min/1.73m 71 Hemoglobin A1C 4.3 - 5.6 % 6.0 (H) Estimated Average Glucose mg/dL 126 Latest Ref Rng 07/26/2023 Cholesterol, Total <200 mg/dL 120 Triglyceride <150 mg/dL 219 (H) HDL Cholesterol >39 mg/dL 26 (L) Non HDL Cholesterol <130 mg/dL 94 Fasting Time hrs 14 VLDL Cholesterol <30 mg/dL 44 (H) TC:HDL Ratio <5.10 4.62 LDL Cholesterol, Calculated <100 mg/dL 50 LDL:HDL Ratio <2.54 1.92 Urine Albumin:Creatinine Ratio Never done Diabetic Foot Exam Never done BP Controlled (<130/80) Never done RSV Vaccine(1 - Risk 60-74 years 1-dose series) Never done Dilated Retinal Exam due on 11/26/2019 LDL Cholesterol due on 07/26/2024 Covid-19 Vaccine( season) due on 08/07/2024 Advance Directive Discussion Never done HbA1C due on 01/23/2025 Lung Cancer Screening due on 06/27/2025 Depression Screening due on 07/26/2025 Anxiety Screening due on 07/26/2025 Serum Creatinine due on 07/26/2025 Annual PCP Team Chronic Disease Visit due on 01/23/2026 Colorectal Cancer Screening due on 01/26/2026 DTaP,Tdap,Td Vaccine(6 - Td or Tdap) due on 09/21/2028 Abdominal Aortic Aneurysm Screening Completed Influenza Vaccine Completed Hepatitis C Screening Completed Shingrix Vaccine Completed Pneumococcal Vaccine: 50+ Completed ASSESSMENT/PLAN: 1. Prediabetes - ICD9: 790.29, ICD10: R73.03 (primary diagnosis) - Continue Metformin, diet and exercise - METFORMIN 500 MG TABLET - ALBUMIN/CREATININE RATIO, URINE - HEMOGLOBIN A1C - LIPID PANEL, FASTING - COMPLETE BLOOD COUNT AND DIFFERENTIAL - COMPREHENSIVE METABOLIC PANEL 2. Benign prostatic hyperplasia without lower urinary tract symptoms - ICD9: 600.00, ICD10: N40.0 - stable on current regime - follow-up with urology as recommended 3. Mixed hyperlipidemia - ICD9: 272.2, ICD10: E78.2 - Control undetermined, due for labs - Continue current medications - Counseled on healthy diet and regular exercise - Follow up in 6 months, sooner should any other issues arise. - FENOFIBRATE NANOCRYSTALLIZED 145 MG TABLET - ROSUVASTATIN 10 MG TABLET - LIPID PANEL, FASTING 4. Primary hypertension - ICD9: 401.9, ICD10: I10 - Controlled - Continue current medications - Recommend home blood pressure monitoring, to bring results to next visit - Encouraged sodium restriction, DASH or Mediterranean diet - Recommend regular aerobic exercise - Follow up in 6 months for hypertension visit - AMLODIPINE 10 MG TABLET - ATENOLOL 100 MG TABLET - LISINOPRIL 20 MG TABLET 5. Malignant neoplasm of urinary bladder, unspecified site (HCC) - ICD9: 188.9, ICD10: C67.9 - follow-up with urology as scheduled Cleopatra Greenwood APRN.JOAO Prescription instructions reviewed with patient as applicable. Patient advised if symptoms do not improve or if symptoms worsen sooner, to contact their primary care physician. Potential red flag symptoms discussed with the patient. Reviewed appropriate action plan to take if red flag symptoms occur. Patient agreeable to treatment plan. Medical Decision Making: Problems: Moderate: 2+ stable chronic illnesses Data: Unique test(s) ordered: 3+ Risk: Moderate: Moderate risk from testing/treatment and Drug management Medical Decision Making Level: 4 - Moderate documented in this encounterUniversity Hospitals Health System05-13-2025 NoteHNO ID: [id number] Author: CLEOPATRA GREENWOOD APRN.CNP Service: ? Author Type: Nurse Practitioner Type: Progress Notes Filed: 01/23/2025 09:23 Note Text: 01/22/2025 Patient presents with: F/U 6 months SUBJECTIVE: This is a 74 year old that is here today for Above Complaints. HTN: Patient is compliant with meds Yes Monitors bp at home: occasional . Denies side effects: Yes. Chest pain: No. Dyspnea: No. Edema: No. Palpitations: No. Syncope: No. Headache: No. Dizziness: No. HYPERLIPIDEMIA: Patient is taking medications: Yes. Patient is watching diet: Yes. Patient denies myalgias: Yes. Patient denies gi upset: Yes Prediabetes: taking Metformin as prescribed without side effects. Denies visual changes, polyuria or polydipsia BPH: taking Proscar as prescribed but has been out for about three months. Denies nocturia, straining to urinate, incomplete emptying, dysuria or hematuria Bladder cancer: Following with Dr. Anne with last office visit on Wednesday. Had biopsy to bladder lesion - awaiting results PAST MEDICAL HISTORY Diagnosis Date Abdominal aortic aneurysm (AAA) without rupture CT flank 01/21/21 Basal cell carcinoma (BCC) of skin of left ear 01/2022 Benign prostatic hyperplasia without lower urinary tract symptoms Chronic kidney disease (CKD), stage III (moderate) (HCC) Dr. Ortiz CML (chronic myeloid leukemia) (HCC) Dr. Cárdenas Hemorrhoid HTN (hypertension) Hyperlipidemia Leukocytosis Malignant neoplasm of bladder (HCC) Dr. Anne MPN (myeloproliferative neoplasm) (HCC) PAD (peripheral artery disease) Dr. Pitts Prediabetes Tobacco use disorder Vitamin D insufficiency ALLERGIES Patient has no known allergies. MEDICATIONS Current Outpatient Medications Medication Sig amLODIPine (NORVASC) 10 mg tablet Take 1 tablet by mouth once daily. atenolol (TENORMIN) 100 mg tablet Take 1 tablet by mouth once daily. fenofibrate nanocrystallized (TRICOR) 145 mg tablet Take 1 tablet by mouth once daily. finasteride (PROSCAR) 5 mg tablet Take 1 tablet by mouth once daily. lisinopril (ZESTRIL) 20 mg tablet Take 0.5 tablets by mouth once daily. metFORMIN (GLUCOPHAGE) 500 mg tablet Take 1 tablet by mouth two times a day with meals. rosuvastatin (CRESTOR) 10 mg tablet Take 1 tablet by mouth once daily. iv contrast (will be provided with radiology test) CT Urogram WO/W Inject, intravenously, once for 1 dose.No IV access, insert saline lock prior to the beginning of sedation, infusion, injection of imaging exam. Discontinue saline lock post exam. If Pt. has a central line or IVAD, may access for administration according to line specific nursing protocol. Once exam is complete flush line and de-access according to line specific nursing protocol in the CT contrast administration guidelines link. clopidogrel (PLAVIX) 75 mg tablet Take 75 mg by mouth once daily. Cholecalciferol, Vitamin D3, (VITAMIN D) 1,000 unit cap Take 1 capsule by mouth twice daily. Multivitamin capsule Take 1 capsule by mouth once daily. No current facility-administered medications for this visit. Medications and allergies reviewed by this provider. SOCIAL HISTORY Social History Tobacco Use Smoking status: Former Current packs/day: 0.00 Average packs/day: 0.5 packs/day for 48.8 years (24.4 ttl pk-yrs) Types: Cigarettes Start date: 09/1975 Quit date: 06/27/2024 Years since quittin.5 Smokeless tobacco: Never Vaping Use Vaping status: Never Used Substance Use Topics Alcohol use: No Drug use: No REVIEW OF SYSTEMS All other reviewed and negative other than HPI. OBJECTIVE: BP 131/84 Pulse (!) 57 Resp 18 Wt 85.8 kg (189 lb 3.2 oz) SpO2 96% BMI 24.96 kg/m? . Vital signs reviewed by this provider. APPEARANCE Well appearing, alert, in no acute distress, well-hydrated, well nourished. EYES conjunctiva and sclera normal. HEART RRR with normal S1 and S2, no murmurs, no gallops, no JVD appreciated LUNG clear to auscultation. No wheezes, rhonchi or rales EXTREMITIES Extremities normal, No deformities, No skin discoloration, and No edema SKIN Skin color, texture, turgor normal, no suspicious rashes or lesions to exposed skin Latest Ref Rng 07/26/2024 Protein, Total 6.3 - 8.0 g/dL 7.5 Albumin 3.9 - 4.9 g/dL 4.6 Calcium 8.5 - 10.2 mg/dL 10.2 Bilirubin, Total 0.2 - 1.3 mg/dL 0.4 Alkaline Phosphatase 38 - 113 U/L 56 AST 14 - 40 U/L 23 ALT 10 - 54 U/L 12 Glucose 74 - 99 mg/dL 129 (H) BUN 9 - 24 mg/dL 25 (H) Creatinine 0.73 - 1.22 mg/dL 1.10 Sodium 136 - 144 mmol/L 142 Potassium 3.7 - 5.1 mmol/L 4.5 Chloride 98 - 107 mmol/L 106 CO2 22 - 30 mmol/L 25 Anion Gap 8 - 15 mmol/L 11 eGFR >=60 mL/min/1.73m? 71 Hemoglobin A1C 4.3 - 5.6 % 6.0 (H) Estimated Average Glucose mg/dL 126 Latest Ref Rng 07/26/2023 Cholesterol, Total <200 mg/dL 120 Triglyceride <150 mg/dL 219 (H) HDL Cholesterol >39 mg/dL 26 (L) Non HDL Cholesterol <13 (more content not included)...[facility] 01-19-2025 Telephone encounter Note* Telephone Encounter - Shawna Guzman - 01/19/2025 10:10 AM EDT Called and left vox Patient scheduled on February 01, 2025 at 11:45 am, [facility] location Thank you Shawna [facility]05-[facility] Miscellaneous Notes* Telephone Encounter - Shawna Guzman - 01/19/2025 10:10 AM EDT Called and left vox Patient scheduled on February 01, 2025 at 11:45 am, [facility] location Thank you Shawna * Telephone Encounter - Tami Anne Jr., MD - 01/19/2025 9:47 AM EDT [facility] OR 01/19/25 Fu with me 2-3 weeks documented in this encounterUniversity Hospitals Health System05-09-2025 Telephone encounter Note * Telephone Encounter - Tami Anne Jr., MD - 01/19/2025 9:47 AM EDT [facility] OR 01/19/25 Fu with me 2-3 weeks [facility] Work Phone: [phone] 390-890005-07-2025 NoteHNO ID: [id number] Author: RUTH MCKEON MA Service: ? Author Type: Damage Prevention Coordinator Type: Progress Notes Filed: 01/17/2025 09:39 Note Text: POPULATION HEALTH NAVIGATION OUTREACH Action/FYI Updated appointment note HCC CLOSURE Topic Due (Y or N) Comments Medicare Wellness y PCP Follow up Colorectal Cancer Screening Controlling Blood Pressure y A1C HCC y Flu Vaccine Care Everywhere Reviewed MyChart Activation Updated Appointment Note Reason for Outreach Care Gap/HCC or Scheduling Wellness Visits Care Gaps due: Medicare Annual Wellness Visit Controlling Blood Pressure Patient Contacted: Unable or unnecessary to reach patient: HCC related Patient already scheduled Updated appointment notes Navigation Signature: Ruth Mckeon MA January 17, 2025 9:37 [facility]05-07-2025 History of Present illness Narrative* Ruth Mckeon MA - 01/17/2025 9:37 AM EDT POPULATION HEALTH NAVIGATION OUTREACH Action/FYI Updated appointment note HCC CLOSURE Topic Due (Y or N) Comments Medicare Wellness y PCP Follow up Colorectal Cancer Screening Controlling Blood Pressure y A1C HCC y Flu Vaccine Care Everywhere Reviewed MyChart Activation Updated Appointment Note Reason for Outreach Care Gap/HCC or Scheduling Wellness Visits Care Gaps due: Medicare Annual Wellness Visit Controlling Blood Pressure Patient Contacted: Unable or unnecessary to reach patient: HCC related Patient already scheduled Updated appointment notes Navigation Signature: Ruth Mckeon MA January 17, 2025 9:37 AM documented in this encounterUniversity Hospitals Health System05-07-2025 NotePatient Outreach (NETNAV) TRACY GORMAN ([id number]) 1950 M Date Time Provider Department 01/17/25 RUTH MCKEON During your visit today, we recorded the following information about you: Ruth Mckeon MA 01/17/2025 9:39 AM Signed POPULATION HEALTH NAVIGATION OUTREACH Action/FYI Updated appointment note HCC CLOSURE Topic Due (Y or N) Comments Medicare Wellness y PCP Follow up Colorectal Cancer Screening Controlling Blood Pressure y A1C HCC y Flu Vaccine Care Everywhere Reviewed MyChart Activation Updated Appointment Note Reason for Outreach Care Gap/HCC or Scheduling Wellness Visits Care Gaps due: Medicare Annual Wellness Visit Controlling Blood Pressure Patient Contacted: Unable or unnecessary to reach patient: HCC related Patient already scheduled Updated appointment notes Navigation Signature: Ruth Mckeon MA January 17, 2025 9:37 AM Allergies As of Date: 01/17/2025 (No Known Allergies) Date Reviewed: 01/05/2025 Reviewed by: Scott Griffin APRN.LINEN ROOM SUPERVISOR - Fully Assessed Reason for Visit: Population Health Navigation Outreach [3910] Cmt: [employer]CO [employer]ENU PCSA Prescriptions as of 01/17/2025 - amLODIPine (NORVASC) 10 mg tablet Take 1 tablet by mouth once daily. - atenolol (TENORMIN) 100 mg tablet Take 1 tablet by mouth once daily. - fenofibrate nanocrystallized (TRICOR) 145 mg tablet Take 1 tablet by mouth once daily. - finasteride (PROSCAR) 5 mg tablet Take 1 tablet by mouth once daily. - lisinopril (ZESTRIL) 20 mg tablet Take 0.5 tablets by mouth once daily. - metFORMIN (GLUCOPHAGE) 500 mg tablet Take 1 tablet by mouth two times a day with meals. - rosuvastatin (CRESTOR) 10 mg tablet Take 1 tablet by mouth once daily. - iv contrast (will be provided with radiology test) CT Urogram WO/W Inject, intravenously, once for 1 dose.No IV access, insert saline lock prior to the beginning of sedation, infusion, injection of imaging exam. Discontinue saline lock post exam. If Pt. has a central line or IVAD, may access for administration according to line specific nursing protocol. Once exam is complete flush line and de-access according to line specific nursing protocol in the CT contrast administration guidelines link. - clopidogrel (PLAVIX) 75 mg tablet Take 75 mg by mouth once daily. - Cholecalciferol, Vitamin D3, (VITAMIN D) 1,000 unit cap Take 1 capsule by mouth twice daily. - Multivitamin capsule Take 1 capsule by mouth once daily. 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]02/08/2018 11/25/2018 Encounter for aftercare following bone marrow t*11/17/2018 01/10/2020 PAD (peripheral artery disease) (HCC) [I73.9] MPN (myeloproliferative neoplasm) (HCC) [D47.1] Hyperlipidemia [E78.5] HTN (hypertension) [I10] Prediabetes [R73.03] Benign prostatic hyperplasia without lower urin*01/20/2022 Abdominal aortic aneurysm (AAA) without rupture* Chronic kidney disease (CKD), stage III (modera* Preoperative examination [Z01.818] Malignant neoplasm of urinary bladder (HCC) [C6*07/30/2023 Vitamin D insuffic (more content not included)...[facility] 01-05-2025 NoteHNO ID: [id number] Author: SCOTT GRIFFIN APRN.CNP Service: Anesthesiology Author Type: Nurse Practitioner Type: Progress Notes Filed: 01/05/2025 10:03 Note Text: Reviewed PAT visit with anesthesia. Reviewed cardiac, vascular, and pulmonary history. Last OR done in [facility] in 2022. AAA stable at this time. Ok to proceed with planned procedure at this time. Will assess further DOS.[facility]03-13-2025 NoteHNO ID: [id number] Author: TAMI ANNE JR, MD Service: ? Author Type: Physician Type: Procedures Filed: 11/23/2024 09:25 Note Text: CYSTOSCOPY PROCEDURE NOTE: Tracy Gorman is a 74 year old male who presents with follow up bladder tumor for cystoscopy. Pt ID verified with patient: Yes Fire risk assessment done Procedure verified with patient: Yes Procedure confirmed with physician and collection support specialist: Yes UNIVERSAL PROTOCOL / SAFETY CHECKLIST Procedure to be Performed: cysto Sign In: A Moment of CARE was completed. Appropriate PPE (Personal Protective Equipment) worn by all providers involved with the procedure. Special equipment not required. Patient/Surrogate Stated/Verified: Patient name, Date of , Relevant allergies, and The intended procedure Time Out: Relevant labs, photos, and/or imaging studies have been reviewed. Intended patient and procedure match the source document(s) (e.g. consent, HANDP, associated studies [imaging, pathology]) match the intended patient and procedure. Consent obtained and matches the intended procedure. Yes. Correct side/site is not applicable. Medications required for this procedure are verified. Fire risk assessed and interventions discussed. Implants: are not applicable. Sign Out: Specimens are all correctly labeled and sent. All instruments, equipment, possible retained foreign bodies are accounted for. Yes. The post-procedure plan of care has been communicated to the patient or surrogate. Pre procedure dx: bladder cancer Post procedure dx: same A urinalysis was performed revealing no evidence of infection. The benefits, risks, alternatives of the cystoscopy procedure and personnel were discussed with the patient. The verbal consent was obtained and the patient agrees to proceed. Procedure: The patient was placed on the procedure table in the supine position and prepped and draped in the usual sterile fashion. 2% Lidocaine Jelly was placed per urethra as an anesthetic in the standard fashion. Once adequate local anesthesia was achieved, the tip of the flexible cystoscope was carefully placed into the urethra under direct visual guidance. The scope was negotiated through the pendulous urethra to the level of the bulbar urethra with no evidence of stricture. The verumontanum came into view and the scope was negotiated through the prostatic urethra which showed evidence of a patent prostatic urethra. The bladder was entered and careful mercer endoscopy was carried out. The posterior, superior and lateral benz and dome of the bladder were all well visualized and the scope was retroflexed upon itself. The findings were consistent with small lesion R lateral wall. At the conclusion of the procedure, the flexible cystoscope was removed atraumatically. The patient tolerated the procedure without complications. Patient was given standard post-procedure instructions, and was directed to complete the course of oral antibiotics and increase oral fluid intake as directed. ASSESSMENT/PLAN: Cystoscopy, bladder biopsy All r/b/a of surgery discussed, infection, bleeding, damage to nearby structures, repeat surgery, stent pain/symptoms, , heart attack, stroke, deep vein thrombosis, pulmonary embolus. Patient verbalized understanding and agrees to proceed. Tami Anne Jr, [facility]03-13-2025 Procedure note* Tami Anne Jr., MD - 11/23/2024 9:24 AM EDT CYSTOSCOPY PROCEDURE NOTE: Tracy Gorman is a 74 year old male who presents with follow up bladder tumor for cystoscopy. Pt ID verified with patient: Yes Fire risk assessment done Procedure verified with patient: Yes Procedure confirmed with physician and collection support specialist: Yes UNIVERSAL PROTOCOL / SAFETY CHECKLIST Procedure to be Performed: cysto Sign In: A Moment of CARE was completed. Appropriate PPE (Personal Protective Equipment) worn by all providers involved with the procedure. Special equipment not required. Patient/Surrogate Stated/Verified: Patient name, Date of , Relevant allergies, and The intended procedure Time Out: Relevant labs, photos, and/or imaging studies have been reviewed. Intended patient and procedure match the source document(s) (e.g. consent, H&P, associated studies [imaging, pathology]) match the intended patient and procedure. Consent obtained and matches the intended procedure. Yes. Correct side/site is not applicable. Medications required for this procedure are verified. Fire risk assessed and interventions discussed. Implants: are not applicable. Sign Out: Specimens are all correctly labeled and sent. All instruments, equipment, possible retained foreign bodies are accounted for. Yes. The post-procedure plan of care has been communicated to the patient or surrogate. Pre procedure dx: bladder cancer Post procedure dx: same A urinalysis was performed revealing no evidence of infection. The benefits, risks, alternatives of the cystoscopy procedure and personnel were discussed with thepatient. The verbal consent was obtained and the patient agrees to proceed. Procedure: The patient was placed on the procedure table in the supine position and prepped and draped in the usual sterile fashion. 2% Lidocaine Jelly was placed per urethra as an anesthetic in the standard fashion. Once adequate local anesthesia was achieved, the tip of the flexible cystoscope was carefully placed into the urethra under direct visual guidance. The scope was negotiated through the pendulous urethra to the level of the bulbar urethra with no evidence of stricture. The verumontanum came into view and the scope was negotiated through the prostatic urethra which showed evidence of a patent prostatic urethra. The bladder was entered and careful mercer endoscopy was carried out. The posterior, superior and lateral benz and dome of the bladder were all well visualized and the scope was retroflexed upon itself. The findings were consistent with small lesion R lateral wall. At the conclusion of the procedure, the flexible cystoscope was removed atraumatically. The patienttolerated the procedure without complications. Patient was given standard post-procedure instructions, and was directed to complete the course of oral antibiotics and increase oral fluid intake as directed. ASSESSMENT/PLAN: Cystoscopy, bladder biopsy All r/b/a of surgery discussed, infection, bleeding, damage to nearby structures, repeat surgery, stent pain/symptoms, , heart attack, stroke, deep vein thrombosis, pulmonary embolus. Patient verbalized understanding and agrees to proceed. Tami Anne Jr, MD [facility]03-13-[facility] Procedure note* Tami Anne Jr., MD - 11/23/2024 9:24 AM EDT CYSTOSCOPY PROCEDURE NOTE: Tracy Gorman is a 74 year old male who presents with follow up bladder tumor for cystoscopy. Pt ID verified with patient: Yes Fire risk assessment done Procedure verified with patient: Yes Procedure confirmed with physician and collection support specialist: Yes UNIVERSAL PROTOCOL / SAFETY CHECKLIST Procedure to be Performed: cysto Sign In: A Moment of CARE was completed. Appropriate PPE (Personal Protective Equipment) worn by all providers involved with the procedure. Special equipment not required. Patient/Surrogate Stated/Verified: Patient name, Date of , Relevant allergies, and The intended procedure Time Out: Relevant labs, photos, and/or imaging studies have been reviewed. Intended patient and procedure match the source document(s) (e.g. consent, H&P, associated studies [imaging, pathology]) match the intended patient and procedure. Consent obtained and matches the intended procedure. Yes. Correct side/site is not applicable. Medications required for this procedure are verified. Fire risk assessed and interventions discussed. Implants: are not applicable. Sign Out: Specimens are all correctly labeled and sent. All instruments, equipment, possible retained foreign bodies are accounted for. Yes. The post-procedure plan of care has been communicated to the patient or surrogate. Pre procedure dx: bladder cancer Post procedure dx: same A urinalysis was performed revealing no evidence of infection. The benefits, risks, alternatives of the cystoscopy procedure and personnel were discussed with thepatient. The verbal consent was obtained and the patient agrees to proceed. Procedure: The patient was placed on the procedure table in the supine position and prepped and draped in the usual sterile fashion. 2% Lidocaine Jelly was placed per urethra as an anesthetic in the standard fashion. Once adequate local anesthesia was achieved, the tip of the flexible cystoscope was carefully placed into the urethra under direct visual guidance. The scope was negotiated through the pendulous urethra to the level of the bulbar urethra with no evidence of stricture. The verumontanum came into view and the scope was negotiated through the prostatic urethra which showed evidence of a patent prostatic urethra. The bladder was entered and careful mercer endoscopy was carried out. The posterior, superior and lateral benz and dome of the bladder were all well visualized and the scope was retroflexed upon itself. The findings were consistent with small lesion R lateral wall. At the conclusion of the procedure, the flexible cystoscope was removed atraumatically. The patienttolerated the procedure without complications. Patient was given standard post-procedure instructions, and was directed to complete the course of oral antibiotics and increase oral fluid intake as directed. ASSESSMENT/PLAN: Cystoscopy, bladder biopsy All r/b/a of surgery discussed, infection, bleeding, damage to nearby structures, repeat surgery, stent pain/symptoms, , heart attack, stroke, deep vein thrombosis, pulmonary embolus. Patient verbalized understanding and agrees to proceed. Tami Anne Jr, MD documented in this encounterUniversity Hospitals Health System12-05-2024 Nurse Note* Su Gilbert RN - 08/17/2024 8:36 AM EST @0834 straight cath placed with ~100 cc clear yellow urine obtained. BCG instilled and catheter removed. Homegoing instructions reviewed with pt- pt verbalized understanding. Linens provided for pt self pericare. [facility] Nurse Note* Su Gilbert RN - 08/17/2024 8:36 AM EST @0834 straight cath placed with ~100 cc clear yellow urine obtained. BCG instilled and catheter removed. Homegoing instructions reviewed with pt- pt verbalized understanding. Linens provided for pt self pericare. documented in this encounterUniversity Hospitals Health System11-13-2024 Instructions* Patient Instructions* Rebecca Biggs LPN - 07/26/2024 8:38 AM EST Screening schedule The following prevention plan is recommended: Depression Screening Never done Anxiety Screening Never done BP Controlled (<130/80) Never done Advance Directive Discussion Never done WHAT YOU CAN DO TO PREVENT FALLS Many falls can be prevented. By making some changes, you can lower your chances of falling. Four things YOU can do to prevent falls for you* and your caregiver 1. Begin a regular exercise program Exercise is one of the most important ways to lower your chances of falling. It makes you stronger and helps you feel better. Exercises that improve balance and coordination (like Amrit Chi) are the most helpful. Lack of exercise leads to weakness and increases your chances of falling. Ask your doctor or health care provider about the best type of exercise program for you. 2. Have your health care provider review your medicines Have your doctor or pharmacist review all the medicines you take, even [id number] medicines. As you get older, the way medicines work in your body can change. Some medicines, or combinations of medicines, can make you sleepy or dizzy andcan cause you to fall. 3. Have your vision checked Have your eyes checked by an eye doctor at least once a year. You may be wearing the wrong glasses or have a condition like glaucoma or cataracts that limits your vision. Poor vision can increase your chances of falling. 4. Make your home safer About half of all falls happen at home. To make your home safer: Remove things you can trip over (like papers, books, clothes, and shoes) from stairs and places where you walk. Remove small throw rugs or use double-sided tape to keep the rugs from slipping. Keep items you use often in cabinets you can reach easily without using a step stool. Have grab bars put in next to your toilet and in the tub or shower. Use non-slip mats in the bathtub and on shower floors. Improve the lighting in your home. As you get older, you need brighter lights to see well. Hang light-weight curtains or shades to reduce glare. Have handrails and lights put in on all staircases. Wear shoes both inside and outside the house. Avoid going barefoot or wearing slippers. For more information, contact: Centers for Disease Control and Prevention www.cdc.gov/injury * This information may not apply if you have certain medical conditions. documented in this encounterUniversity Hospitals Health System11-13-2024 NoteHNO ID: [id number] Author: LAMBERT GOMEZ MD Service: ? Author Type: Physician Type: Progress Notes Filed: 07/27/2024 10:17 Note Text: Michael Gorman is a 73 year old male here for a Medicare wellness visit. Patient has been in good health without recent hospitalizations, ER visits, or falls. No concerns today. Patient following up with Dr. Anne for history of bladder cancer s/p TURBT with plan for BCG therapy. Up to date on cancer screening, COVID and influenza vaccination. Due for routine labs. Medicare Health Risk Assessment General Health Excellent Exercise: Minutes/Day 40 min Exercise: Days/Week 4 days Alcohol: Daily Use Never Alcohol: Drinks/Day Patient does not drink Alcohol: 6 or more drinks Never Feel off balance No Concerns: Teeth/Dentures No Concerns: Sexual function No Troubled by feelings None of the above Frequency: Eating healthy diet More than half the days ADLs requiring help None of the above Safety precautions in home/vehicle Yes Smoke, vape, chews tobacco No Difficulty hearing No Difficulty seeing No Current Providers Specialists: I have reviewed specialist-related care of the patient in the medical record. Current care team: Patient Care Team: Lambert Gomez MD as PCP - General (Family Medicine) Jey Truong, RN as Specialty Multi Craft Maintenance Technician (Blood and Marrow Transplant) Tosha Ray APRN.LINEN ROOM SUPERVISOR as Nurse Practitioner (Blood and Marrow Transplant) Outside specialists seen: Nephrology: Dr. Ortiz, Oncology: Tania Ray, Dr Anne: Urology, Dr. Pitts: vascular surgery, Pulmonology: Joel Mccann located in [place], but cannot recall their name. Medical/Family history review Reviewed and updated problem list, medical/surgical/family/social history, medications, and allergies. Opioid use review Opioid Medications (last 90 days) No data to display Anxiety/Depression screening PHQ-2 Score: 0 AVINASH-7 Score: 0. Recommendation: no further intervention at this time Cognitive screening Mini Cog Score: 4 Cognitive screening reviewed and No further action needed (score 3-5). Functional Observation Was the patient's Timed Up AND Go test unsteady or >= 12 seconds? No Advance Care Planning Patient did not wish or was not able to name a surrogate decision maker or provide an advance care plan FULL CODE Measurements BP 126/84 Pulse 60 Resp 16 Wt 84.9 kg (187 lb 3.2 oz) SpO2 99% BMI 24.70 kg/m? Vision Screening: Right: 2025 Left: 20/ 50 Both: 2030 with correction Latest Ref [facility] 01/24/2024 WBC 3.70 - 11.00 k/uL 8.57 RBC 4.20 - 6.00 m/uL 5.44 Hemoglobin 13.0 - 17.0 g/dL 15.8 Hematocrit 39.0 - 51.0 % 50.1 MCV 80.0 - 100.0 fL 92.1 MCH 26.0 - 34.0 pg 29.0 MCHC 30.5 - 36.0 g/dL 31.5 RDW-CV 11.5 - 15.0 % 16.1 (H) Platelet Count 150 - 400 k/uL 272 MPV 9.0 - 12.7 fL 10.1 Neut% % 62.6 Abs Neut (ANC) 1.45 - 7.50 k/uL 5.38 Lymph% % 26.4 Abs Lymph 1.00 - 4.00 k/uL 2.26 [place]% % 7.4 Abs [place] <0.87 k/uL 0.63 Eosin% % 2.5 Abs Eosin <0.46 k/uL 0.21 Baso% % 0.5 Abs Baso <0.11 k/uL 0.04 Immature Gran % % 0.6 IMMATURE GRANS (ABS) <0.10 k/uL 0.05 NRBC /100 WBC 0.0 Absolute nRBC <0.01 k/uL <0.01 DTYPE Auto Iron 41 - 186 ug/dL 77 TIBC 232 - 386 ug/dL 371 Transferrin Saturation 15.0 - 57.0 % 20.8 Hemoglobin A1C 4.3 - 5.6 % 6.1 (H) Estimated Average Glucose mg/dL 128 Ferritin 30.3 - 565.7 ng/mL 80.4 Vitamin D 25 Hydroxy 31.0 - 80.0 ng/mL 31.6 Legend: (H) High Latest Ref Rng 07/26/2023 Cholesterol, Total <200 mg/dL 120 Triglyceride <150 mg/dL 219 (H) HDL Cholesterol >39 mg/dL 26 (L) Non HDL Cholesterol <130 mg/dL 94 Fasting Time hrs 14 VLDL Cholesterol <30 mg/dL 44 (H) TC:HDL Ratio <5.10 4.62 LDL Cholesterol <100 mg/dL 50 LDL:HDL Ratio <2.54 1.92 Legend: (H) High (L) Low ASSESSMENT/PLAN: 1. Medicare annual wellness visit, subsequent - ICD9: V70.0, ICD10: Z00.00 (primary diagnosis) Medicare annual wellness visit, subsequent (Z00.00) - Counseled on healthy diet and regular exercise - Fall avoidance information provided - Personalized prevention plan provided 2. Primary hypertension - ICD9: 401.9, ICD10: I10 - Controlled - Continue current medications - Recommend home blood pressure monitoring, to bring results to next visit - Encouraged sodium restriction, DASH or Mediterranean diet - Recommend regular aerobic exercise - ATENOLOL 100 MG TABLET - LISINOPRIL 20 MG TABLET 3. Mixed hyperlipidemia - ICD9: 272.2, ICD10: E78.2 - Controlled - Continue current medications - Counseled on healthy diet and regular exercise - FENOFIBRATE NANOCRYSTALLIZED 145 MG TABLET - ROSUVASTATIN 10 MG TABLET 4. Prediabetes - ICD9: 790.29, ICD10: R73.03 Due for repeat labs. Work on low carb diet and exercise. Continue current regimen. - COMPREHENSIVE METABOLIC PANEL - HEMOGLOBIN A1C - METFORMIN 500 MG TABLET 5. Immunodeficiency (HCC) - ICD9: 2 (more content not included)...[facility]11-13-[facility] History of Present illness Narrative* Lambert Gomez MD - 07/26/2024 8:33 AM EST Images from the original note were not included. Michael Gorman is a 73 year old male here for a Medicare wellness visit. Patient has been in good health without recent hospitalizations, ER visits, or falls. No concerns today. Patient following up with Dr. Anne for history of bladder cancer s/p TURBT with plan for BCG therapy. Up to date on cancer screening, COVID and influenza vaccination. Due for routine labs. Medicare Health Risk Assessment General Health Excellent Exercise: Minutes/Day 40 min Exercise: Days/Week 4 days Alcohol: Daily Use Never Alcohol: Drinks/Day Patient does not drink Alcohol: 6 or more drinks Never Feel off balance No Concerns: Teeth/Dentures No Concerns: Sexual function No Troubled by feelings None of the above Frequency: Eating healthy diet More than half the days ADLs requiring help None of the above Safety precautions in home/vehicle Yes Smoke, vape, chews tobacco No Difficulty hearing No Difficulty seeing No Current Providers Specialists: I have reviewed specialist-related care of the patient in the medical record. Current care team: Patient Care Team: Lambert Gomez MD as PCP - General (Family Medicine) Jey Truong RN as Specialty Multi Craft Maintenance Technician (Blood and Marrow Transplant) Tosha Ray APRN.LINEN ROOM SUPERVISOR as Nurse Practitioner (Blood and Marrow Transplant) Outside specialists seen: Nephrology: Dr. Ortiz, Oncology: Tania Ray, Dr Anne: Urology, : vascular surgery, Pulmonology: Joel Mccann located in [place], but cannot recall their name. Medical/Family history review Reviewed and updated problem list, medical/surgical/family/social history, medications, and allergies. Opioid use review Opioid Medications (last 90 days) No data to display Anxiety/Depression screening PHQ-2 Score: 0 AVINASH-7 Score: 0. Recommendation: no further intervention at this time Cognitive screening Mini Cog Score: 4 Cognitive screening reviewed and No further action needed (score 3-5). Functional Observation Was the patient's Timed Up & Go test unsteady or >= 12 seconds? No Advance Care Planning Patient did not wish or was not able to name a surrogate decision maker or provide an advance care plan FULL CODE Measurements BP 126/84 Pulse 60 Resp 16 Wt 84.9 kg (187 lb 3.2 oz) SpO2 99% BMI 24.70 kg/m Vision Screening: Right: 20/25 Left: 20/ 50 Both: with correction Latest Ref Rng 01/24/2024 WBC 3.70 - 11.00 k/uL 8.57 RBC 4.20 - 6.00 m/uL 5.44 Hemoglobin 13.0 - 17.0 g/dL 15.8 Hematocrit 39.0 - 51.0 % 50.1 MCV 80.0 - 100.0 fL 92.1 MCH 26.0 - 34.0 pg 29.0 MCHC 30.5 - 36.0 g/dL 31.5 RDW-CV 11.5 - 15.0 % 16.1 (H) Platelet Count 150 - 400 k/uL 272 MPV 9.0 - 12.7 fL 10.1 Neut% % 62.6 Abs Neut (ANC) 1.45 - 7.50 k/uL 5.38 Lymph% % 26.4 Abs Lymph 1.00 - 4.00 k/uL 2.26 [place]% % 7.4 Abs [place] <0.87 k/uL 0.63 Eosin% % 2.5 Abs Eosin <0.46 k/uL 0.21 Baso% % 0.5 Abs Baso <0.11 k/uL 0.04 Immature Gran % % 0.6 IMMATURE GRANS (ABS) <0.10 k/uL 0.05 NRBC /100 WBC 0.0 Absolute nRBC <0.01 k/uL <0.01 DTYPE Auto Iron 41 - 186 ug/dL 77 TIBC 232 - 386 ug/dL 371 Transferrin Saturation 15.0 - 57.0 % 20.8 Hemoglobin A1C 4.3 - 5.6 % 6.1 (H) Estimated Average Glucose mg/dL 128 Ferritin 30.3 - 565.7 ng/mL 80.4 Vitamin D 25 Hydroxy 31.0 - 80.0 ng/mL 31.6 Legend: (H) High Latest Ref Rng 07/26/2023 Cholesterol, Total <200 mg/dL 120 Triglyceride <150 mg/dL 219 (H) HDL Cholesterol >39 mg/dL 26 (L) Non HDL Cholesterol <130 mg/dL 94 Fasting Time hrs 14 VLDL Cholesterol <30 mg/dL 44 (H) TC:HDL Ratio <5.10 4.62 LDL Cholesterol <100 mg/dL 50 LDL:HDL Ratio <2.54 1.92 Legend: (H) High (L) Low ASSESSMENT/PLAN: 1. Medicare annual wellness visit, subsequent - ICD9: V70.0, ICD10: Z00.00 (primary diagnosis) Medicare annual wellness visit, subsequent (Z00.00) - Counseled on healthy diet and regular exercise - Fall avoidance information provided - Personalized prevention plan provided 2. Primary hypertension - ICD9: 401.9, ICD10: I10 - Controlled - Continue current medications - Recommend home blood pressure monitoring, to bring results to next visit - Encouraged sodium restriction, DASH or Mediterranean diet - Recommend regular aerobic exercise - ATENOLOL 100 MG TABLET - LISINOPRIL 20 MG TABLET 3. Mixed hyperlipidemia - ICD9: 272.2, ICD10: E78.2 - Controlled - Continue current medications - Counseled on healthy diet and regular exercise - FENOFIBRATE NANOCRYSTALLIZED 145 MG TABLET - ROSUVASTATIN 10 MG TABLET 4. Prediabetes - ICD9: 790.29, ICD10: R73.03 Due for repeat labs. Work on low carb diet and exercise. Continue current regimen. - COMPREHENSIVE METABOLIC PANEL - HEMOGLOBIN A1C - METFORMIN 500 MG TABLET 5. Immunodeficiency (HCC) - ICD9: 279.3, ICD10: D84.9 History of CML in remission. F/u with urology for recent bladder cancer diagnosis. - AMLODIPINE 10 MG TABLET 6. S/P allogeneic bone marrow transplant (HCC) - ICD9: V42.81, ICD10: Z94.81 - AMLODIPINE 10 MG TABLET 7. Benign prostatic hyperplasia without lower urinary tract symptoms - ICD9: 600.00, ICD10: N40.0 Continue finasteride daily. Requesting refill. - FINASTERIDE 5 MG TABLET 8. Stage 3 chronic kidney disease, unspecified whether stage 3a or 3b CKD (HCC) - ICD9: 585.3, ICD10: N18.30 Recheck CMP. - Counseled on avoiding NSAIDs, adequate hydration - Counseled on low sodium diet 9. 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 10. Screening for depression - ICD9: V79.0, ICD10: Z13.31 - DEPRESSION SCREENING 11. Encounter for screening examination for other mental health and behavioral disorders - ICD9: V79.8, ICD10: Z13.39 - ANXIETY SCREENING Lambert Gomez MD documented in this encounterUniversity Hospitals Health System10-15-2024 Instructions* Patient Instructions* Sheela Vera APRN.CNP - 06/27/2024 9:46 AM EDT Lung nodule/s: all previously seen nodule/s have not changed in size or characteristic/resolved andthere are no new nodules of concern. Please return in one year for the following 2 visits on the same day: Annual low-dose CT chest Lung cancer screening Provider visit. This recommendation is subject to change pending the final report from radiology. I will notify you of the final radiology report recommendations when available by Ignytahart message, letter, or phone call. We will also notify your referring provider/PCP of the results and recommendations. If you didn t schedule this before you left the office or need to reschedule, you can call in to schedule it anytime: [facility] [phone] [facility] [phone] All other [facility] locations [phone] Feel free to reach out for any questions or concerns, Sheela Vera APRN.CNP Lung Cancer Screening [phone] documented in this encounterUniversity Hospitals Health System10-15-2024 NoteHNO ID: [id number] Author: SHEELA VERA APRN.CNP Service: ? Author Type: Nurse Practitioner Type: Progress Notes Filed: 06/27/2024 09:54 Note Text: LUNG SCREENING ANNUAL VISIT PRIMARY CARE PHYSICIAN: Lambert Gomez MD PULMONARY PROVIDER: Leia Shaw PA-C Results will be communicated via letter or electronic record if applicable. Visit Delivery: In Person Patient Visit Type: established Current or Ex-smoker? [Current Exam Type: annual LDCT Number of Pack Years: 49 Current smoker (=0) The patient's smoking history is similar to prior year shared decision visit. The reason for the discrepancy is NA Chief Complaint: Established patient in lung cancer screening program here for annual follow-up. Impression / Recommendations Tracy Gorman presents for annual lung cancer screening annual exam and nodule evaluation. Plan: Indeterminate pulmonary nodules: Previously identified nodules appear stable and no new nodules of concern were seen on the exam. Low dose CT Scan to be repeated in one year. Plan subject to change pending final radiology report and recommendations. Nature of the lung nodule(s) and the options for further evaluation discussed in detail with patient. Tracy Gorman expressed understanding and is in agreement with plan. 2. Encounter for screening for malignant neoplasm of respiratory organs I have determined that the patient is eligible for continued low dose CT screening based on age, absence of signs or symptoms of lung cancer, smoking history and total pack years. The patient was counseled on the importance of adherence to annual LDCT lung cancer screening, impact of comorbidities and ability or willingness to undergo diagnosis and treatment. The patient understands and feels comfortable with it: Yes. 3. Nicotine Dependence The patient was counseled on the importance of smoking cessation if current smoker and, if appropriate, offered additional tobacco cessation counseling services - Smoking Cessation Counseling. SMOKING CESSATION COUNSELING Smoking cessation methods including Behavior Modification were discussed with the patient and assistance offered. The medical conditions adversely affected by cigarette use include:COPD, Emphysema, and Lung Cancer. Counseled on benefits of quitting smoking, recommended cessation or reduction to prevent development and/or progression of emphysema. The patient is currently not ready to quit. I personally spent 2 minutes in counseling. The time spent in smoking cessation counseling is exclusive of any other counseling during this visit. I spent a total of 30 minutes on the date of the service which included preparing to see the patient, [id number] patient care, completing clinical documentation, performing a medically appropriate examination, counseling and educating the patient/family/caregiver, ordering medications, tests, or procedures, communicating with other HCPs (not separately reported), independently interpreting results (not separately reported), communicating results to the patient/family/caregiver, and care coordination (not separately reported). Sheela Vera APRN.[facility] June 27, 2024 9:37 AM History of Present Illness: Tracy Gorman is a 73 year old male who is presenting today for annual lung cancer screening LDCT and nodule surveillance/management. Patient has multiple nodules found on previous lung cancer screening LDCT. Last LDCT was performed on 06/23/2023 and was LUNG RADS Category 2. Previous potentially significant incidental findings on imaging: Moderate CAC Patient is a current smoker with a 24 pack year history. Patient is currently still smoking 8 cigarettes daily. Patient will continue to be eligible for lung cancer screening until age 77. The patient does not have any symptoms or signs of lung cancer. Patient denies SOB with their daily activity. No wheezing or dyspnea. Patient denies feeling of chest tightness/congestion in the chest. Patient does not have a new or concerning cough, and denies hemoptysis. Patient does not have a chronic daily cough. Denies regular or recent fevers/chills. Patient does not have any significant unintentional weight loss. Patient denies having any respiratory infections or COVID-19 in the past few months. Does not use any maintenance inhaler for COPD. 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 Last check 05/25/2024, and was all clear. Plan for maintenance BCG treatment 08/2024. Modified Medical Research [place] Dyspnea Scale (MMRC) I only get breathless with strenous exercise 0 Last 12 Encounter Wt Readings: Date: Wt: 06/27/2024 86.4 kg (190 lb 7.6 oz) 01/26/2024 84.7 kg (186 lb 12.8 oz) 01/24/2024 84.9 kg (187 lb 3.2 o (more content not included)...[facility]10-15-20[facility] History of Present illness Narrative* Sheela Vera APRN.LINEN ROOM SUPERVISOR - 06/27/2024 9:31 AM EDT Images from the original note were not included. LUNG SCREENING ANNUAL VISIT PRIMARY CARE PHYSICIAN: Lambert Gomez MD PULMONARY PROVIDER: Leia Shaw PA-C Results will be communicated via letter or electronic record if applicable. Visit Delivery: In Person Patient Visit Type: established Current or Ex-smoker? [Current Exam Type: annual LDCT Number of Pack Years: 49 Current smoker (=0) The patient's smoking history is similar to prior year shared decision visit. The reason for the discrepancy is NA Chief Complaint: Established patient in lung cancer screening program here for annual follow-up. Impression / Recommendations Tracy Gorman presents for annual lung cancer screening annual exam and nodule evaluation. Plan: Indeterminate pulmonary nodules: Previously identified nodules appear stable and no new nodules of concern were seen on the exam. Low dose CT Scan to be repeated in one year. Plan subject to change pending final radiology report and recommendations. Nature of the lung nodule(s) and the options for further evaluation discussed in detail with patient. Tracy Gorman expressed understanding and is in agreement with plan. 2. Encounter for screening for malignant neoplasm of respiratory organs I have determined that the patient is eligible for continued low dose CT screening based on age, absence of signs or symptoms of lung cancer, smoking history and total pack years. The patient was counseled on the importance of adherence to annual LDCT lung cancer screening, impact of comorbidities and ability or willingness to undergo diagnosis and treatment. The patient understands and feels comfortable with it: Yes. 3. Nicotine Dependence The patient was counseled on the importance of smoking cessation if current smoker and, if appropriate, offered additional tobacco cessation counseling services - Smoking Cessation Counseling. SMOKING CESSATION COUNSELING Smoking cessation methods including Behavior Modification were discussed with the patient and assistance offered. The medical conditions adversely affected by cigarette use include:COPD, Emphysema, and Lung Cancer. Counseled on benefits of quitting smoking, recommended cessation or reduction to prevent development and/or progression of emphysema. The patient is currently not ready to quit. I personally spent 2 minutes in counseling. The time spent in smoking cessation counseling is exclusive of any other counseling during this visit. I spent a total of 30 minutes on the date of the service which included preparing to see the patient, [id number] patient care, completing clinical documentation, performing a medically appropriate examination, counseling and educating the patient/family/caregiver, ordering medications, tests, or p rocedures, communicating with other HCPs (not separately reported), independently interpreting results (not separately reported), communicating results to the patient/family/caregiver, and care coordination (not separately reported). Sheela Vera APRN.LINEN ROOM SUPERVISOR June 27, 2024 9:37 AM History of Present Illness: Tracy Gorman is a 73 year old male who is presenting today for annual lung cancer screening LDCT and nodule surveillance/management. Patient has multiple nodules found on previous lung cancer screening LDCT. Last LDCT was performed on 06/23/2023 and was LUNG RADS Category 2. Previous potentially significant incidental findings on imaging: Moderate CAC Patient is a current smoker with a 24 pack year history. Patient is currently still smoking 8 cigarettes daily. Patient will continue to be eligible for lung cancer screening until age 77. The patient does not have any symptoms or signs of lung cancer. Patient denies SOB with their dailyactivity. No wheezing or dyspnea. Patient denies feeling of chest tightness/congestion in the chest. Patient does not have a new or concerning cough, and denies hemoptysis. Patient does not have a chronic daily cough. Denies regular or recent fevers/chills. Patient does not have any significant unintentional weight loss. Patient denies having any respiratory infections or COVID-19 in the past fewmonths. Does not use any maintenance inhaler for COPD. 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 Last check 05/25/2024, and was all clear. Plan for maintenance BCG treatment 08/2024. Modified Medical Research [place] Dyspnea Scale (MMRC) I only get breathless with strenous exercise 0 Last 12 Encounter Wt Readings: Date: Wt: 06/27/2024 86.4 kg (190 lb 7.6 oz) 01/26/2024 84.7 kg (186 lb 12.8 oz) 01/24/2024 84.9 kg (187 lb 3.2 oz) 01/19/2024 84.7 kg (186 lb 12.8 oz) 10/29/2023 87.9 kg (193 lb 12.8 oz) 10/22/2023 87.8 kg (193 lb 9.6 oz) 10/15/2023 87.7 kg (193 lb 6.4 oz) 10/08/2023 88.1 kg (194 lb 3.2 oz) 09/24/2023 86 kg (189 lb 9.6 oz) 09/17/2023 87.2 kg (192 lb 3.2 oz) 08/27/2023 85.6 kg (188 lb 11.4 oz) 07/26/2023 85.2 kg (187 lb 12.8 oz) Social History Tobacco Use: Types: Cigarettes Past Medical History: PAST MEDICAL HISTORY Diagnosis Date Abdominal aortic aneurysm (AAA) without rupture (HCC) CT flank 01/21/21 Basal cell carcinoma (BCC) of skin of left ear 01/2022 Benign prostatic hyperplasia without lower urinary tract symptoms Bladder mass Dr. Anne Chronic kidney disease (CKD), stage III (moderate) (HCC) Dr. Ortiz CML (chronic myeloid leukemia) (HCC) Dr. Cárdenas Hemorrhoid HTN (hypertension) Hyperlipidemia Leukocytosis Malignant neoplasm of bladder (HCC) MPN (myeloproliferative neoplasm) (HCC) PAD (peripheral artery disease) (HCC) Dr. Pitts Prediabetes Tobacco use disorder Vitamin D insufficiency Family Hx: FAMILY HISTORY Problem Relation Age of Onset Cancer Mother 80 Lung Cancer Hypertension Mother Lipids Mother Lipids Father Prostate Cancer Brother Surgical Hx: PAST SURGICAL HISTORY Procedure Laterality Date ANGIOPLASTY Right 2019 right leg for claudication and toe discoloration B[place] M[place]OW [place] [facility] [place]2017 [facility]OSCOPY [facility] . COLONOSCOPY 2016 HEMORRHOID SURGERY HX PAST SURGICAL HISTORY OF Left 03/2022 Mohs for BCC behind left ear Allergies: ALLERGIES No Known Allergies Review Of Systems: See HPI for ROS All of the remainder systems were reviewed and negative. PHYSICAL EXAMINATION: BP 138/88 Pulse 65 Wt 190 lb 7.6 oz (86.4kg) SpO2 98% General appearance: well appearing, in no acute distress, and alert Skin: skin color, texture, turgor normal, no rashes or lesions Neck: Supple, no adenopathy; thyroid symmetric, normal size Respiratory: lungs clear to auscultation no wheezing or rhonchi Cardiovascular: Negative. RRR without murmur, gallop, or rubs. No ectopy Musculoskeletal: Extremities normal. No deformities, edema, or skin discoloration. Neuro: Oriented X 3 Data Review I have visually reviewed imaging and testing below CT imaging done today was reviewed and analyzed independently and compared to prior CT chest imaging by practitioner and awaiting radiology review. All previously noted lung nodules are stable. No new lung nodules noted. Imaging * * *Final Report* * * DATE OF EXAM: Jun 23 2023 7:07AM [facility] [place] - CT LUNG SCREEN WO IVCON / PROCEDURE REASON: multiple diagnoses * * * * Physician Interpretation * * * * EXAMINATION: CHEST CT WITHOUT CONTRAST (LOW-DOSE CT LUNG CANCER SCREENING PROTOCOL) CLINICAL HISTORY: Lung cancer LDCT screening ? absence of signs or symptoms of lung cancer. Nicotine dependence (cigarettes). Subsequent (annual) Technique: Spiral CT acquisition of the chest from the thoracic inlet to the upper abdomen without contrast. MQ: [id number]_6 Patient characteristics: * Sjnk-ys-Mwmce: 1950; Age at exam: 72 years * Gender: Male * Lung Disease: Asymptomatic (no signs or symptoms of lung disease) * Number of Pack Years: 47 * Current smoker (=0) or Number of Years since Quit: 0 * Ordering provider and NPI: RACHAEL ENGLISH [id number] * Interpreting radiologist and NPI: Toby [id number] Exam acquisition parameters: * Exam Date: 06/23/2023 7:07 AM * Site: [facility] * * CT System Sales Engagement Executive: [employer] * CT System Model: [employer] * Tube Current-Time (mA-sec): 100 * Peak Voltage (kV): 120V * Scan Time (sec): 5.6 * Scan Volume (z-length, cm): 36.30 * Pitch: .984 * Slice Thickness (mm): 1.25 * CT Dose-Length Product: 179 mGy*cm * CT Dose Index: 4.19mGy * CT Dose Reduction Method: Automated exposure control(AEC) and iterative recon COMPARISON: Prior lung screening CTs including most recent dated 04/28/2022 RESULT: Are nodules present? Yes, 6 or more nodules Nodule 1: This solid nodule is located in the left lower lobe on slice number 360 with an average diameter of 3 mm. Stable from 04/28/2022 Nodule 2: This solid nodule is located in the right upper lobe on slice number 107 with an average diameter of 2 mm . Stable from 04/28/2022mm Nodule 3: This nonsolid nodule is located in the right upper lobe on slice number 109 with an average diameter of 2.5 mm ). Stable from 04/28/2022 Nodule 4: This solid nodule is located in the left upper lobe on slice number 151 with an average diameter of 3 mm . Stable from 04/28/2022 Nodule 5: This solid nodule is located in the right lower lobe on slice number 332 with an average diameter of 7 mm (10 mm x 4 mm). Stable perivascular nodular opacity, seen on CTs dating back to at least 05/18/2014, unchanged. Other lung nodule comments: Multiple additional scattered tiny (less than 3 mm) stable pulmonary nodules noted bilaterally (upper lobe predominant) and most likely postinflammatory, for example within the anterior left upper lobe at 232, 239. Stable numerous scattered calcified granulomata, the largest within the right middle lobe (3:354). No suspicious new or enlarging pulmonary nodules. Other findings: Diffuse bronchial wall thickening consistent with chronic airway inflammatory changes. Trace retained mucous/secretions noted within the isaac, mainstem bronchi and bronchus intermedius. Mild bibasilar dependent atelectasis. No enlarged thoracic lymph nodes. Mild ectasia the ascending thoracic aorta measuring 4.2 cm, unchanged. Scattered mild atherosclerotic calcification present within the thoracic and visualized upper abdominal aorta and within the proximal arch branch vessels. The central pulmonary arteries are upper normal in caliber with the main pulmonary artery measuring 29 mm. Normal heart size. Fusion of the right first and second ribs. Thoracic vertebral body heights are preserved. No destructive lytic or blastic bone lesion. Degenerative changes noted within the visualized inferior cervical spine. Relatively decreased attenuation of the hepatic parenchyma in relation to the spleen suggests mild hepatic steatosis. Upper abdominal vascular calcifications. No acute process in the imaged upper abdomen. Emphysema: Mild (5-25%), centrilobular, diffuse Coronary Artery Calcifications: Circumflex mild; Left Anterior Descending moderate; Right Coronary moderate Passenger Representative (topogram) images: No additional findings. Last XR Chest - Impression Only XR CHEST 1V FRONTAL PORT Collected: 12/22/2017 9:55 AM (Final result) Impression: IMPRESSION: Lines, tubes, and devices: Right IJ venous catheter terminates in the right atrium. Lungs and pleura: Diffuse reticular and airspace opacities are noted bilaterally, likely related to pulmonary edema. Small left pleural effusion is noted. A calcified granuloma is noted in the right midlung. No pneumothorax. ... Pulmonary Function Testing: SPIROMETRY BASELINE ONLY ([id number]) - ordered on 09/22/18 [facility] [address] [place] [address] Test Date: 2018-11-25 Pat Name: TRACY GORMAN Department: Room: Gender: Male Gas Operations Analyst: DOROTHY Osorio : 1950 Requested By: Order Number: [id number] Reading MD: Cristhian Fowler MD Interpretive Statements Test no. 1 11/25/2018 12:25:46PM ATS acceptability and repeatability standards for spirometry met. ATS acceptability and repeatability standards for DLCO met. DLCO is not hemoglobin corrected. //DOROTHY IMPRESSION: Spirometry is normal. The diffusing capacity is mildly reduced. The presence of a reduced DLCO that normalizes when corrected for volume is consistent with a nonparenchymal disorder but does not rule out parenchymal or pulmonary vascular disease. Electronically Signed On 11-25-2018 16:44:12 EDT by Fellow Suma Noonan MD Electronically Signed On 11-28-2018 15:41:52 EDT by Cristhian Fowler MD [facility] [place] Pulmonary Function Lab Pred N ULN Pre % Date [id number] Time 10:56AM Height 184.8 Weight 90.4 FVC 4.97 3.97 5.98 4.51 91 FEV 1 3.69 2.84 4.54 3.02 82 FEV1%F 74.02 64.34 83.70 67.08 91 FEV 2 4.08 3.04 5.12 3.57 88 FEV 3 4.53 3.52 5.55 3.81 84 FEV3%E 90.64 86.00 95.28 84.61 93 MEF 50 4.61 2.99 6.23 2.21 48 FIF 50 7.40 F25/75 2.84 1.11 4.56 1.75 62 FE%FIF 29.90 FEV6 4.21 PEF 9.00 6.64 11.36 7.87 88 FET 9.41 FETPEF 0.07 VBe%FV 3.28 VBEex 0.15 DLCO 27.76 19.75 35.76 18.94 68 DL/VA 3.84 2.64 5.04 2.72 71 VA 7.35 5.98 8.72 6.96 95 YARITZA 4.97 3.97 5.98 4.50 90 BHT 10.60 documented in this encounterUniversity Hospitals Health System10-15-2024 Miscellaneous Notes* [facility] - [facility] [address] CT - 06/27/2024 9:00 AM EDT Radiology Service Progress Note PATIENT NAME: Tracy Gorman DATE OF SERVICE: June 27, 2024 TIME: 8:46 AM PATIENT IDENTITY VERIFICATION COMPLETED USING TWO (2) IDENTIFIERS: Name and Date of confirmedby patient verbally and Name and Date of confirmed by identification band. FALL SCREENING: Has the patient had 2 falls in the last year or 1 fall with injury or currently using an Ambulatory Assistive Device (Walker, Cane, Wheelchair, Crutches, etc.)? No PATIENT GENDER DATA: Male PATIENT RELEVANT IMPLANT DATA REVIEWED: Not Applicable PATIENT PRESENTS WITH AN IMPLANTABLE OR ATTACHED FARMWORKER: No RADIOLOGY DEPARTMENT: CT; Exam(s) Completed: Lung Screening PERIPHERAL IV DATA: Not applicable SIGNED BY: KI Arvizu June 27, 2024 8:46 AM documented in this encounterUniversity Hospitals Health System10-15-2024 Progress note* [facility] - [facility] [address] CT - 06/27/2024 9:00 AM EDT Radiology Service Progress Note PATIENT NAME: Tracy Gorman DATE OF SERVICE: June 27, 2024 TIME: 8:46 AM PATIENT IDENTITY VERIFICATION COMPLETED USING TWO (2) IDENTIFIERS: Name and Date of confirmedby patient verbally and Name and Date of confirmed by identification band. FALL SCREENING: Has the patient had 2 falls in the last year or 1 fall with injury or currently using an Ambulatory Assistive Device (Walker, Cane, Wheelchair, Crutches, etc.)? No PATIENT GENDER DATA: Male PATIENT RELEVANT IMPLANT DATA REVIEWED: Not Applicable PATIENT PRESENTS WITH AN IMPLANTABLE OR ATTACHED FARMWORKER: No RADIOLOGY DEPARTMENT: CT; Exam(s) Completed: Lung Screening PERIPHERAL IV DATA: Not applicable SIGNED BY: KI Arvizu June 27, 2024 8:46 AM [facility]-12-[facility] Note* Addendum Note - Tami Anne Jr., MD - 05/25/2024 10:43 AM EDTAddended by: TAMI ANNE on: 05/25/2024 10:43 AM Modules accepted: Orders [facility]09-12-2024 Miscellaneous Notes* Addendum Note - Tami Anne Jr., MD - 05/25/2024 10:43 AM EDTAddended by: TAMI ANNE on: 05/25/2024 10:43 AM Modules accepted: Orders * Addendum Note - Leona Flores MA - 05/25/2024 10:27 AM EDTAddended by: LEONA FLORES on: 05/25/2024 10:27 AM Modules accepted: Orders * Telephone Encounter - Leona Flores MA - 05/25/2024 10:27 AM EDT Orders pended for review and signature Leona Flores MA * Telephone Encounter - Tami Anne Jr., MD - 05/25/2024 8:43 AM EDT Set up 3 rounds maintenance bcg in August documented in this encounterUniversity Hospitals Health System09-12-2024 Note* Addendum Note - Leona Flores MA - 05/25/2024 10:27 AM EDTAddended by: LEONA FLORES on: 05/25/2024 10:27 AM Modules accepted: Orders [facility]09-12-2024 Telephone encounter Note* Telephone Encounter - Leona Flores MA - 05/25/2024 10:27 AM EDT Orders pended for review and signature Leona Flores MA [facility]09-12-2024 Telephone encounter Note* Telephone Encounter - Tami Anne Jr., MD - 05/25/2024 8:43 AM EDT Set up 3 rounds maintenance bcg in August [facility]09-12-2024 NoteHNO ID: [id number] Author: TAMI ANNE JR, MD Service: ? Author Type: Physician Type: Procedures Filed: 05/25/2024 09:08 Note Text: CYSTOSCOPY PROCEDURE NOTE: Tracy Gorman is a 73 year old male who presents with follow up bladder tumor for cystoscopy. Pt ID verified with patient: Yes Fire risk assessment done Procedure verified with patient: Yes Procedure confirmed with physician and collection support specialist: Yes UNIVERSAL PROTOCOL / SAFETY CHECKLIST Procedure to be Performed: Cystoscopy Sign In: A Moment of CARE was completed. Personnel directly involved with the procedure wore the appropriate PPE (Personal Protective Equipment). Patient/Surrogate Stated/Verified: PATIENT VERIFIED(optional for EMERGENT procedures): Patient name, Date of , Relevant allergies, and The intended procedure Time Out Communication: Intended patient and procedure match the source documents. Consent documented and matches the intended procedure. Sign Out: SIGN OUT (optional for EMERGENT procedures): No specimen collected. Tami Anne Jr, MD Pre procedure dx: History of bladder cancer high grade T1 s/p BCG inductionand maintenance Post procedure dx: no sign of bladder cancer A urinalysis was performed revealing no evidence of infection. The benefits, risks, alternatives of the cystoscopy procedure and personnel were discussed with the patient. The verbal consent was obtained and the patient agrees to proceed. Procedure: The patient was placed on the procedure table in the supine position and prepped and draped in the usual sterile fashion. 2% Lidocaine Jelly was placed per urethra as an anesthetic in the standard fashion. Once adequate local anesthesia was achieved, the tip of the flexible cystoscope was carefully placed into the urethra under direct visual guidance. The scope was negotiated through the pendulous urethra to the level of the bulbar urethra with no evidence of stricture. The verumontanum came into view and the scope was negotiated through the prostatic urethra which showed evidence of bi lobar occlusive disease. The bladder was entered and careful mercer endoscopy was carried out. The posterior, superior and lateral benz and dome of the bladder were all well visualized and the scope was retroflexed upon itself. The findings were consistent with no evidence of bladder mucosal pathology. At the conclusion of the procedure, the flexible cystoscope was removed atraumatically. The patient tolerated the procedure without complications. Patient was given standard post-procedure instructions, and was directed to complete the course of oral antibiotics and increase oral fluid intake as directed. ASSESSMENT/PLAN: Repeat maintenance BCG Follow up for cystoscopy Cat Guevara MD Urology PGY-4 Pager #[phone] 05/25/2024 8:45 AM I was present for the entire procedure and directly participated in the critical and hogue portions of the surgery. I was immediately available to provide assistance throughout the entire case. Tami Anne Jr, [facility]09-12-2024 Procedure note* Tami Anne Jr., MD - 05/25/2024 8:35 AM EDT CYSTOSCOPY PROCEDURE NOTE: Tracy Gorman is a 73 year old male who presents with follow up bladder tumor for cystoscopy. Pt ID verified with patient: Yes Fire risk assessment done Procedure verified with patient: Yes Procedure confirmed with physician and collection support specialist: Yes UNIVERSAL PROTOCOL / SAFETY CHECKLIST Procedure to be Performed: Cystoscopy Sign In: A Moment of CARE was completed. Personnel directly involved with the procedure wore the appropriate PPE (Personal Protective Equipment). Patient/Surrogate Stated/Verified: PATIENT VERIFIED(optional for EMERGENT procedures): Patient name, Date of , Relevant allergies, and The intended procedure Time Out Communication: Intended patient and procedure match the source documents. Consent documented and matches the intended procedure. Sign Out: SIGN OUT (optional for EMERGENT procedures): No specimen collected. Tami Anne Jr, MD Pre procedure dx: History of bladder cancer high grade T1 s/p BCG induction and maintenance Post procedure dx: no sign of bladder cancer A urinalysis was performed revealing no evidence of infection. The benefits, risks, alternatives of the cystoscopy procedure and personnel were discussed with thepatient. The verbal consent was obtained and the patient agrees to proceed. Procedure: The patient was placed on the procedure table in the supine position and prepped and draped in the usual sterile fashion. 2% Lidocaine Jelly was placed per urethra as an anesthetic in the standard fashion. Once adequate local anesthesia was achieved, the tip of the flexible cystoscope was carefully placed into the urethra under direct visual guidance. The scope was negotiated through the pendulous urethra to the level of the bulbar urethra with no evidence of stricture. The verumontanum came into view and the scope was negotiated through the prostatic urethra which showed evidence of bi lobar occlusive disease. The bladder was entered and careful mercer endoscopy was carried out. The posterior, superior and lateral benz and dome of the bladder were all well visualized and the scope was retroflexed upon itself. The findings were consistent with no evidence of bladder mucosal pathology. At the conclusion of the procedure, the flexible cystoscope was removed atraumatically. The patienttolerated the procedure without complications. Patient was given standard post-procedure instructions, and was directed to complete the course of oral antibiotics and increase oral fluid intake as directed. ASSESSMENT/PLAN: Repeat maintenance BCG Follow up for cystoscopy Cat Guevara MD Urology PGY-4 Pager #[phone] 05/25/2024 8:45 AM I was present for the entire procedure and directly participated in the critical and hogue portions of the surgery. I was immediately available to provide assistance throughout the entire case. Tami Anne Jr, MD [facility]09-12-2024 Procedure note* Tami Anne Jr., MD - 05/25/2024 8:35 AM EDT CYSTOSCOPY PROCEDURE NOTE: Tracy Gorman is a 73 year old male who presents with follow up bladder tumor for cystoscopy. Pt ID verified with patient: Yes Fire risk assessment done Procedure verified with patient: Yes Procedure confirmed with physician and collection support specialist: Yes UNIVERSAL PROTOCOL / SAFETY CHECKLIST Procedure to be Performed: Cystoscopy Sign In: A Moment of CARE was completed. Personnel directly involved with the procedure wore the appropriate PPE (Personal Protective Equipment). Patient/Surrogate Stated/Verified: PATIENT VERIFIED(optional for EMERGENT procedures): Patient name, Date of , Relevant allergies, and The intended procedure Time Out Communication: Intended patient and procedure match the source documents. Consent documented and matches the intended procedure. Sign Out: SIGN OUT (optional for EMERGENT procedures): No specimen collected. Tami Anne Jr, MD Pre procedure dx: History of bladder cancer high grade T1 s/p BCG induction and maintenance Post procedure dx: no sign of bladder cancer A urinalysis was performed revealing no evidence of infection. The benefits, risks, alternatives of the cystoscopy procedure and personnel were discussed with thepatient. The verbal consent was obtained and the patient agrees to proceed. Procedure: The patient was placed on the procedure table in the supine position and prepped and draped in the usual sterile fashion. 2% Lidocaine Jelly was placed per urethra as an anesthetic in the standard fashion. Once adequate local anesthesia was achieved, the tip of the flexible cystoscope was carefully placed into the urethra under direct visual guidance. The scope was negotiated through the pendulous urethra to the level of the bulbar urethra with no evidence of stricture. The verumontanum came into view and the scope was negotiated through the prostatic urethra which showed evidence of bi lobar occlusive disease. The bladder was entered and careful mercer endoscopy was carried out. The posterior, superior and lateral benz and dome of the bladder were all well visualized and the scope was retroflexed upon itself. The findings were consistent with no evidence of bladder mucosal pathology. At the conclusion of the procedure, the flexible cystoscope was removed atraumatically. The patienttolerated the procedure without complications. Patient was given standard post-procedure instructions, and was directed to complete the course of oral antibiotics and increase oral fluid intake as directed. ASSESSMENT/PLAN: Repeat maintenance BCG Follow up for cystoscopy Cat Guevara MD Urology PGY-4 Pager #[phone] 05/25/2024 8:45 AM I was present for the entire procedure and directly participated in the critical and hogue portions of the surgery. I was immediately available to provide assistance throughout the entire case. Tami Anne Jr, MD documented in this encounterUniversity Hospitals Health System05-28-2024 Telephone encounter Note * Telephone Encounter - Jey Mandujano LPN - 02/08/2024 2:50 PM EDT Patient has been identified by name and date of : Yes Patient phones for refill(s): Requested Prescriptions Pending Prescriptions Disp Refills amLODIPine (NORVASC) 10 mg tablet 90 tablet 1 Sig: Take 1 tablet by mouth once daily. atenolol (TENORMIN) 100 mg tablet 90 tablet 1 Sig: Take 1 tablet by mouth once daily. fenofibrate nanocrystallized (TRICOR) 145 mg tablet 90 tablet 1 Sig: Take 1 tablet by mouth once daily. finasteride (PROSCAR) 5 mg tablet 90 tablet 1 Sig: Take 1 tablet by mouth once daily. lisinopril (ZESTRIL) 20 mg tablet 90 tablet 1 Sig: Take 1 tablet by mouth once daily. metFORMIN (GLUCOPHAGE) 500 mg tablet 180 tablet 1 Sig: Take 1 tablet by mouth two times a day with meals. rosuvastatin (CRESTOR) 10 mg tablet 90 tablet 1 Sig: Take 1 tablet by mouth once daily. Date of last office visit in primary care: 01/24/2024 Date of next office visit in primary care: 07/26/2024 Please advise. Thank you. Jey Mandujano LPN. [facility]05-28-2024 Miscellaneous Notes* Telephone Encounter - Jey Mandujano LPN - 02/08/2024 2:50 PM EDT Patient has been identified by name and date of : Yes Patient phones for refill(s): Requested Prescriptions Pending Prescriptions Disp Refills amLODIPine (NORVASC) 10 mg tablet 90 tablet 1 Sig: Take 1 tablet by mouth once daily. atenolol (TENORMIN) 100 mg tablet 90 tablet 1 Sig: Take 1 tablet by mouth once daily. fenofibrate nanocrystallized (TRICOR) 145 mg tablet 90 tablet 1 Sig: Take 1 tablet by mouth once daily. finasteride (PROSCAR) 5 mg tablet 90 tablet 1 Sig: Take 1 tablet by mouth once daily. lisinopril (ZESTRIL) 20 mg tablet 90 tablet 1 Sig: Take 1 tablet by mouth once daily. metFORMIN (GLUCOPHAGE) 500 mg tablet 180 tablet 1 Sig: Take 1 tablet by mouth two times a day with meals. rosuvastatin (CRESTOR) 10 mg tablet 90 tablet 1 Sig: Take 1 tablet by mouth once daily. Date of last office visit in primary care: 01/24/2024 Date of next office visit in primary care: 07/26/2024 Please advise. Thank you. Jey Mandujano LPN. documented in this encounterUniversity Hospitals Health System05-15-2024 History of Present illness Narrative* Caprice Gamino RN - 01/26/2024 9:05 AM EDT 0900- Straight catheter placed, ~150 ml clear urine drained. 0905- BCG instilled and catheter removed. Reminded patient to rotate every 15 minutes. Marielena care per patient. No complaints at this time. documented in this encounterUniversity Hospitals Health System05-13-2024 History of Present illness Narrative* Lambert Gomez MD - 01/24/2024 8:43 AM EDT Chief Complaint Patient presents with: Follow Up: 6 month HPI Tracy Gorman is a 73 year old male who presents here today for Above Complaints.. Patient s/p multiple bladder masses removed on 07/23 after having gross hematuria and CT urogram showing multiple lesions. Started on chemotherapy by urology and completed last round this week. Grosshematuria has resolved since surgery. Nocturia has improved. Has f/u on 05/[address] Anne. Prediabetes: Taking metformin as prescribed. Asymptomatic. Working on low carb diet and trying to keep weight down to 185 lbs. Exercising by push mowing his lawn. Walking in stores. Due for repeat labs. BP elevated on initial check today. Not checking BP at home. Has had some higher readings at appointments in the last 3-4 months. Denies HTN symptoms. Noted Lisinopril dose decreased to 10 mg daily by nephrology Dr. Ortiz. Has f/u in March. PAD: taking Plavix and statin as prescribed. Managed by Dr. Pitts's office. Has US regularly. No claudication, cold extremities, cyanosis. AAA US completed 12/2022 and appeared stable. Repeat to be ordered by vascular. CML in remission. Has been off treatment since 2017. F/u with oncology in May. Working on quitting smoking. Last cigarette was 2 weeks ago. Quitting cold turkey. Discussed risks of continue smoking and benefits of cessation. Past medical history, appointments, medications, allergies reviewed. Previous Medical History PAST MEDICAL HISTORY Diagnosis Date Abdominal aortic aneurysm (AAA) without rupture (HCC) CT flank 01/21/21 Basal cell carcinoma (BCC) of skin of left ear 01/2022 Benign prostatic hyperplasia without lower urinary tract symptoms Bladder mass Dr. Anne Chronic kidney disease (CKD), stage III (moderate) (HCC) Dr. Ortiz CML (chronic myeloid leukemia) (HCC) Dr. Cárdenas Hemorrhoid HTN (hypertension) Hyperlipidemia Leukocytosis Malignant neoplasm of bladder (HCC) MPN (myeloproliferative neoplasm) (HCC) PAD (peripheral artery disease) (HCC) Dr. Pitts Prediabetes Tobacco use disorder Vitamin D insufficiency Previous Surgical History PAST SURGICAL HISTORY Procedure Laterality Date ANGIOPLASTY Right 2019 right leg for claudication and toe discoloration [place] [facility] [place] [facility] . COLONOSCOPY 2016 HEMORRHOID SURGERY HX PAST SURGICAL HISTORY OF Left 03/2022 Mohs for BCC behind left ear Family History FAMILY HISTORY Problem Relation Age of Onset Cancer Mother 80 Lung Cancer Hypertension Mother Lipids Mother Lipids Father Prostate Cancer Brother Patient Allergies ALLERGIES No Known Allergies Current Medications Current Outpatient Medications on File Prior to Visit Medication Sig atenolol (TENORMIN) 100 mg tablet Take 1 tablet by mouth once daily. finasteride (PROSCAR) 5 mg tablet Take 1 tablet by mouth once daily. rosuvastatin (CRESTOR) 10 mg tablet Take 1 tablet by mouth once daily. clopidogrel (PLAVIX) 75 mg tablet Take 75 mg by mouth once daily. Cholecalciferol, Vitamin D3, (VITAMIN D) 1,000 unit cap Take 1 capsule by mouth twice daily. Multivitamin capsule Take 1 capsule by mouth once daily. amLODIPine (NORVASC) 10 mg tablet Take 1 tablet by mouth once daily. fenofibrate nanocrystallized (TRICOR) 145 mg tablet Take 1 tablet by mouth once daily. lisinopril (ZESTRIL) 20 mg tablet Take 1 tablet by mouth once daily. (Patient taking differently: Take 10 mg by mouth once daily.) metFORMIN (GLUCOPHAGE) 500 mg tablet Take 1 tablet by mouth two times a day with meals. iv contrast (will be provided with radiology test) CT Urogram WO/W Inject, intravenously, once for 1 dose.No IV access, insert saline lock prior to the beginning of sedation, infusion, injection of imaging exam. Discontinue saline lock post exam. If Pt. has a central line or IVAD, may access for administration according to line specific nursing protocol. Once exam is complete flush line and de-access according to line specific nursing protocol in the CT contrast administration guidelines link. No current facility-administered medications on file prior to visit. Social History Social History Tobacco Use Smoking status: Some Days Packs/day: 0.50 Years: 47.00 Additional pack years: 0.00 Total pack years: 23.50 Types: Cigarettes Smokeless tobacco: Never Tobacco comments: Less than 1/2ppd, does not finish the cigarette 08/27/22, start age 25 Vaping Use Vaping Use: Never used Substance Use Topics Alcohol use: No Drug use: No Review of Symptoms REVIEW OF SYSTEMS GENERAL: No weight loss, malaise or fevers RESPIRATORY: Negative for cough, hemoptysis, wheezing, COPD, dyspnea or shortness of breath CARDIOVASCULAR: Negative for chest pain, leg swelling, hypertension, CHF or palpitations GI: No nausea, vomiting, or diarrhea SKIN: Negative for lesions, rash, and itching EXAM: BP 140/90 Pulse 63 Resp 16 Wt 84.9 kg (187 lb 3.2 oz) SpO2 98% BMI 24.70 kg/m General Appearance: Well appearing, alert, in no acute distress, well-hydrated, well nourished.. Skin: Skin color, texture, turgor normal, no suspicious rashes or lesions. Lungs: Lungs clear to auscultation. No wheezing, rhonchi, rales.. Heart: RRR without murmur, gallop, or rubs. No ectopy. Abdomen: Normal abdominal exam, Abdomen soft, non-tender. Bowel sounds normal. No masses, organomegaly. Extremities: No deformities, edema, skin discoloration, clubbing or cyanosis. Good capillary refill. . Health Maintenance List BP Controlled (<130/80) Never done Covid-19 Vaccine(2022- season) due on 08/07/2023 Advance Directive Discussion Never done Behavioral Health Screening Never done RSV Vaccine(1 - 1-dose 60+ series) due on 07/26/2024 Lung Cancer Screening due on 06/23/2024 Annual PCP Team Chronic Disease Visit due on 07/26/2024 Serum Creatinine due on 08/27/2024 Colorectal Cancer Screening due on 01/26/2026 Diabetes Screening due on 08/27/2026 Lipid Screening due on 07/26/2028 DTaP,Tdap,Td Vaccine(6 - Td or Tdap) due on 09/21/2028 Abdominal Aortic Aneurysm Screening Completed Influenza Vaccine Completed Hepatitis C Screening Completed Shingrix Vaccine Completed Pneumococcal Vaccine: 65+ Completed HPV Vaccine Aged Out Data reviewed Latest Ref Rng 07/26/2023 08/27/2023 11/04/2023 WBC 3.70 - 11.00 k/uL 7.25 RBC 4.20 - 6.00 m/uL 5.00 Hemoglobin 13.0 - 17.0 g/dL 12.2 (L) Hematocrit 39.0 - 51.0 % 42.8 MCV 80.0 - 100.0 fL 85.6 MCH 26.0 - 34.0 pg 24.4 (L) MCHC 30.5 - 36.0 g/dL 28.5 (L) RDW-CV 11.5 - 15.0 % 17.2 (H) Platelet Count 150 - 400 k/uL 184 MPV 9.0 - 12.7 fL 9.7 Neut% % 65.5 Abs Neut (ANC) 1.45 - 7.50 k/uL 4.75 Lymph% % 22.5 Abs Lymph 1.00 - 4.00 k/uL 1.63 [place]% % 8.1 Abs [place] <0.87 k/uL 0.59 Eosin% % 2.8 Abs Eosin <0.46 k/uL 0.20 Baso% % 0.7 Abs Baso <0.11 k/uL 0.05 Immature Gran % % 0.4 IMMATURE GRANS (ABS) <0.10 k/uL 0.03 NRBC /100 WBC 0.0 Absolute nRBC <0.01 k/uL <0.01 DTYPE Auto Protein, Total 6.3 - 8.0 g/dL 7.1 Albumin 3.9 - 4.9 g/dL 4.5 Calcium 8.5 - 10.2 mg/dL 10.8 (H) Bilirubin, Total 0.2 - 1.3 mg/dL 0.2 Alkaline Phosphatase 38 - 113 U/L 53 AST 14 - 40 U/L 17 ALT 10 - 54 U/L 7 (L) Glucose 74 - 99 mg/dL 117 (H) BUN 9 - 24 mg/dL 28 (H) Creatinine 0.73 - 1.22 mg/dL 1.21 Sodium 136 - 144 mmol/L 142 Potassium 3.7 - 5.1 mmol/L 4.9 Chloride 97 - 105 mmol/L 107 (H) CO2 22 - 30 mmol/L 23 Anion Gap 9 - 18 mmol/L 12 eGFR >=60 mL/min/1.73m 64 GLUCOSE UA (POCT) Negative mg/dL Negative BILIRUBIN UA (POCT) Negative Negative KETONE UA (POCT) Negative mg/dL Negative SPECIFIC GRAVITY UA (POCT) 1.005 - 1.030 >=1.030 HEMOGLOBIN/BLOOD UA (POCT) Negative Moderate ! PH UA (POCT) 4.5 - 8.0 6.0 PROTEIN UA (POCT) Negative mg/dL >=300 ! UROBILINOGEN UA (POCT) Normal E.U./dL 0.2 NITRITE UA (POCT) Negative Negative LEUKOCYTES UA (POCT) Negative Negative COLOR UA (POCT) Yellow CLARITY UA (POCT) Clear Iron 41 - 186 ug/dL 356 (H) TIBC 232 - 386 ug/dL 443 (H) Transferrin Saturation 15.0 - 57.0 % 80.4 (H) Hemoglobin A1C 4.3 - 5.6 % 5.6 Estimated Average Glucose mg/dL 114 Ferritin 30.3 - 565.7 ng/mL 30.5 Latest Ref Rng 07/26/2023 Cholesterol, Total <200 mg/dL 120 Triglyceride <150 mg/dL 219 (H) HDL Cholesterol >39 mg/dL 26 (L) Non HDL Cholesterol <130 mg/dL 94 Fasting Time hrs 14 VLDL Cholesterol <30 mg/dL 44 (H) TC:HDL Ratio <5.10 4.62 LDL Cholesterol <100 mg/dL 50 LDL:HDL Ratio <2.54 1.92 Legend: (L) Low (H) High ! Abnormal ASSESSMENT/PLAN: 1. Primary hypertension - ICD9: 401.9, ICD10: I10 (primary diagnosis) - Controlled - Continue current medications - Recommend home blood pressure monitoring, to bring results to next visit - Encouraged sodium restriction, DASH or Mediterranean diet - Recommend regular aerobic exercise 2. Mixed hyperlipidemia - ICD9: 272.2, ICD10: E78.2 - Controlled - Continue current medications - Counseled on healthy diet and regular exercise 3. Stage 3a chronic kidney disease (HCC) - ICD9: 585.3, ICD10: N18.31 Recheck CMP. - Counseled on avoiding NSAIDs, adequate hydration - Counseled on low sodium diet 4. Prediabetes - ICD9: 790.29, ICD10: R73.03 Repeat A1c. Discussed low carb diet and exercise as able. - HEMOGLOBIN A1C 5. Malignant neoplasm of urinary bladder, unspecified site (HCC) - ICD9: 188.9, ICD10: C67.9 S/p removal. Symptoms resolved. Completed chemo. F/u with urology recommendations. 6. Normocytic anemia due to blood loss - ICD9: 280.0, ICD10: D50.0 Recheck CBC. Denies bleeding or bruising symptoms. - COMPLETE BLOOD COUNT AND DIFFERENTIAL - IRON AND TIBC - FERRITIN 7. CML (chronic myeloid leukemia) (HCC) - ICD9: 205.10, ICD10: C92.10 In remission since treatment in 2018. F/u with oncology recommendations. 8. MPN (myeloproliferative neoplasm) (HCC) - ICD9: 238.79, ICD10: D47.1 In remission since treatment in 2018. F/u with oncology recommendations. 9. S/P allogeneic bone marrow transplant (HCC) - ICD9: V42.81, ICD10: Z94.81 10. Immunodeficiency (HCC) - ICD9: 279.3, ICD10: D84.9 Recommendations per heme/onc. 11. Benign prostatic hyperplasia without lower urinary tract symptoms - ICD9: 600.00, ICD10: N40.0 Improved nocturia. Continue proscar and recommendations per urology. 12. PAD (peripheral artery disease) (HCC) - ICD9: 443.9, ICD10: I73.9 Asymptomatic on current regimen. Continue Plavix and Crestor. 13. Vitamin D insufficiency - ICD9: 268.9, ICD10: E55.9 Recheck. - VITAMIN D 25 HYDROXY Lambert Gomez MD documented in this encounterUniversity [facility]als [facility] System05-08-2024 Nurse Note* Su Gilbert RN - 01/19/2024 9:23 AM EDT @ 0918 coude straight cath placed with ~25cc clear yellow urine obtained. BCG instilled without incident at 0920 and catheter removed. Linens provided for pt self pericare. Homegoing instructions reviewed with pt- pt verbalized understanding. Pt aware to hold bladder until 1120. [facility] Nurse Note* Su Gilbert RN - 01/19/2024 9:23 AM EDT @ 0918 coude straight cath placed with ~25cc clear yellow urine obtained. BCG instilled without incident at 0920 and catheter removed. Linens provided for pt self pericare. Homegoing instructions reviewed with pt- pt verbalized understanding. Pt aware to hold bladder until 1120. documented in this encounterUniversity Hospitals Health System05-01-2024 History of Present illness Narrative* Cheryl Pedersen RN - 01/12/2024 9:30 AM EDT 0930 Pt educated and provided handout on BCG bladder instillation. Straight cathed for 60ml clear yellow urine. BCG bladder instilled. Cath removed. Pt reminded to hold bladder and change positions every 15 minutes until 1130 today. 0940 pt d/c home documented in this encounterUniversity Hospitals Health System02-23-2024 Procedure note* Tami Anne Jr., MD - 11/05/2023 10:40 AM EST CYSTOSCOPY PROCEDURE NOTE: Trcay Gorman is a 73 year old male who presents with follow up bladder tumor for cystoscopy. Pt ID verified with patient: Yes Fire risk assessment done Procedure verified with patient: Yes Procedure confirmed with physician and collection support specialist: Yes UNIVERSAL PROTOCOL / SAFETY CHECKLIST Procedure to be Performed: cystoscopy Sign In: A Moment of CARE was completed. Personnel directly involved with the procedure wore the appropriate PPE (Personal Protective Equipment). Patient/Surrogate Stated/Verified: PATIENT VERIFIED(optional for EMERGENT procedures): Patient name, Date of , Relevant allergies, and The intended procedure Time Out Communication: Intended patient and procedure match the source documents. Consent documented and matches the intended procedure. Sign Out: SIGN OUT (optional for EMERGENT procedures): No specimen collected. Tami Anne Jr, MD Pre procedure dx: bladder cancer Post procedure dx: same A urinalysis was performed revealing no evidence of infection. The benefits, risks, alternatives of the cystoscopy procedure and personnel were discussed with thepatient. The verbal consent was obtained and the patient agrees to proceed. Procedure: The patient was placed on the procedure table in the supine position and prepped and draped in the usual sterile fashion. 2% Lidocaine Jelly was placed per urethra as an anesthetic in the standard fashion. Once adequate local anesthesia was achieved, the tip of the flexible cystoscope was carefully placed into the urethra under direct visual guidance. The scope was negotiated through the pendulous urethra to the level of the bulbar urethra with no evidence of stricture. The verumontanum came into view and the scope was negotiated through the prostatic urethra which showed evidence of a patent prostatic urethra. The bladder was entered and careful mercer endoscopy was carried out. The posterior, superior and lateral benz and dome of the bladder were all well visualized and the scope was retroflexed upon itself. The findings were consistent with no evidence of bladder mucosal pathology. At the conclusion of the procedure, the flexible cystoscope was removed atraumatically. The patienttolerated the procedure without complications. Patient was given standard post-procedure instructions, and was directed to complete the course of oral antibiotics and increase oral fluid intake as directed. ASSESSMENT/PLAN: 6 months Cysto Maintenance gem/tax Tami Anne Jr, MD documented in this encounterUniversity Hospitals Health System02-22-2024 Nurse Note* Leona Flores Ma - 11/04/2023 2:32 PM EST Wooden Fence Erector present: Leona Flores Ma documented in this [facility]02-16-2024 Nurse Note* Su Gilbert RN - 10/29/2023 11:30 AM EST @0848 coude catheter placed with 100cc yellow urine obtained. @ 0902 gemzar instilled and catheter clamped. Pt instructed to turn Q15 minutes- pt verbalized understanding. @ 1032 catheter unclamped and drained. @ 1044 taxotere instilled and catheter removed. Linens provided for pt self pericare. Homegoing instructions reviewed with pt- pt verbalized understanding. documented in this [facility]02-09-2024 History of Present illness Narrative* Cheryl Pedersen, GEORGI - 10/22/2023 9:10 AM EST 0910 coude cath placed. Clear yellow urine draining. 0925 cath clamped. Gemzar bladder instilled. Pt reminded to turn all sides every 15 minutes for thenext 90 minutes. 1055 cath unclamped and draining. 1100 cath clamped. Taxotere bladder instilled. Cath removed. Pt reminded to hold bladder for 2 hours and continue moving/changing positions every 15 minutes. Pt ok to d/c home. documented in this encounterUniversity Hospitals Health System02-02-2024 History of Present illness Narrative* Olga Park RN - 10/15/2023 8:44 AM EST Difficult time getting by the prostate, changed to Coude cath and had immediate success. documented in this encounterUniversity Hospitals Health System11-22-2023 Miscellaneous Notes* Telephone Encounter - Leona Flores Ma - 08/04/2023 3:25 PM EST Tasia Anne would like these to start Early September Leona Flores Ma * Addendum Note - Leona Flores Ma - 08/04/2023 3:24 PM ESTAddended by: LEONA FLORES MA on: 08/04/2023 03:24 PM Modules accepted: Orders * Telephone Encounter - Leona Flores Ma - 08/04/2023 3:23 PM EST Orders pended for review and signature. Leona Floers Ma * Telephone Encounter - Tasia Mitchell - 08/04/2023 3:21 PM EST Received call from Xena at Dr. Anne's office. Informed that we do treatments in [place]. Once provider enters orders, please review and advise. Informed we would contact patient for scheduling. * Telephone Encounter - Tami Anne Jr., MD - 08/04/2023 1:13 PM EST Induction gem/tax 6 rounds See if can do in [place] documented in this encounterUniversity Hospitals Health System11-22-2023 History of Present illness Narrative* Jan Jaquez MD - 08/04/2023 1:09 PM EST ESTABLISHED PATIENT OFFICE VISIT HPI Tracy Gorman is a 72 year old male who presents for follow up after TURBT 07/23, which demonstrated T1 disease. Muscle not involved. Patient reports frequency and dysuria without hematuria. Current smoker. History of leukemia. LAB: Creatinine Date Value Ref Range Status 07/26/2023 1.37 (H) 0.73 - 1.22 mg/dL Final PSA (ng/mL) Date Value 07/30/2021 0.8 Glucose, Urine Date Value 01/26/2022 Negative 07/30/2021 Negative mg/dL Bilirubin, Urine (no units) Date Value 01/26/2022 Negative 07/30/2021 Negative Ketones, Urine (no units) Date Value 01/26/2022 Negative 07/30/2021 Negative Specific [place], Ur (no units) Date Value 01/26/2022 1.017 07/30/2021 1.025 Hemoglobin/Blood,Ur Date Value 01/26/2022 3+ 07/30/2021 3+ pH, Urine (no units) Date Value 01/26/2022 6.0 07/30/2021 5.0 Protein, Urine (no units) Date Value 01/26/2022 2+ 07/30/2021 3+ Nitrites (no units) Date Value 01/26/2022 Negative 07/30/2021 Negative WBC, Urine Date Value 01/26/2022 0-5 /HPF 07/30/2021 0-5 /HPF MEDICATIONS: ferrous sulfate 325 mg (65 mg iron) tablet Take 1 tablet by mouth once daily. amLODIPine (NORVASC) 10 mg tablet Take 1 tablet by mouth once daily. atenolol (TENORMIN) 100 mg tablet Take 1 tablet by mouth once daily. fenofibrate nanocrystallized (TRICOR) 145 mg tablet Take 1 tablet by mouth once daily. finasteride (PROSCAR) 5 mg tablet Take 1 tablet by mouth once daily. lisinopril (ZESTRIL) 20 mg tablet Take 1 tablet by mouth once daily. metFORMIN (GLUCOPHAGE) 500 mg tablet Take 1 tablet by mouth two times a day with meals. rosuvastatin (CRESTOR) 10 mg tablet Take 1 tablet by mouth once daily. iv contrast (will be provided with radiology test) CT Urogram WO/W Inject, intravenously, once for 1 dose.No IV access, insert saline lock prior to the beginning of sedation, infusion, injection of imaging exam. Discontinue saline lock post exam. If Pt. has a central line or IVAD, may access for administration according to line specific nursing protocol. Once exam is complete flush line and de-access according to line specific nursing protocol in the CT contrast administration guidelines link. clopidogrel (PLAVIX) 75 mg tablet Take 75 mg by mouth once daily. Cholecalciferol, Vitamin D3, (VITAMIN D) 1,000 unit cap Take 1 capsule by mouth twice daily. Multivitamin capsule Take 1 capsule by mouth once daily. REVIEW OF SYSTEMS Review of Systems Constitutional: Negative for activity change and appetite change. Genitourinary: Positive for dysuria and frequency. Negative for hematuria. Psychiatric/Behavioral: Negative for agitation. HISTORIES PAST MEDICAL HISTORY Diagnosis Date Abdominal aortic aneurysm (AAA) without rupture (HCC) CT flank 01/21/21 Basal cell carcinoma (BCC) of skin of left ear 01/2022 Benign prostatic hyperplasia without lower urinary tract symptoms Bladder mass Dr. Anne Chronic kidney disease (CKD), stage III (moderate) (HCC) CML (chronic myeloid leukemia) (HCC) Dr. Cárdenas Hemorrhoid HTN (hypertension) Hyperlipidemia Leukocytosis MPN (myeloproliferative neoplasm) (HCC) PAD (peripheral artery disease) (HCC) Dr. Pitts Prediabetes Tobacco use disorder Vitamin D insufficiency FAMILY HISTORY Problem Relation Age of Onset Cancer Mother 80 Lung Cancer Hypertension Mother Lipids Mother Lipids Father Prostate Cancer Brother SOCIAL HISTORY Social History Tobacco Use Smoking status: Every Day Packs/day: 0.50 Years: 47.00 Additional pack years: 0.00 Total pack years: 23.50 Types: Cigarettes Smokeless tobacco: Never Tobacco comments: Less than 1/2ppd, does not finish the cigarette 08/27/22, start age 25 Vaping Use Vaping Use: Never used Substance Use Topics Alcohol use: No Drug use: No PHYSICAL EXAMINATION General appearance: Well appearing, alert, in no acute distress, and well- hydrated, well nourished Skin: Skin color, texture, turgor normal, no suspicious rashes or lesions Respiratory:+ effort Cardiovascular: Not examined GI: Normal abdominal exam, Abdomen soft, non-tender. No masses, organomegaly Musculoskeletal: Negative Neuro: Negative Genitourinary: deferred Pathology 07/23/2023 TURBT large: FINAL DIAGNOSIS A. Bladder, transurethral resection: - High-grade papillary urothelial carcinoma. - Foci suspicious for lamina propria (subepithelial connective tissue) invasion. See comment. - Muscularis propria (detrusor muscle) is present and is not involved by tumor. Impression: (C67.9) Malignant neoplasm of urinary bladder, unspecified site (HCC) (primary encounter diagnosis) (R30.0) Dysuria Plan: -Start induction gem/tax -follow up with cystoscopy after Jan Jaquez MD I saw and evaluated the patient. Discussed with resident and agree with resident's findings and plan as documented in the resident's note. Tami Anne Jr, MD documented in this encounterUniversity Hospitals Health System11-14-2023 Miscellaneous Notes* Telephone Encounter - Millie Dao Ma - 07/27/2023 9:45 AM EST Pt notified. Millie Dao Ma * Telephone Encounter - Lambert Gomez MD - 07/27/2023 8:46 AM EST A1c has improved to normal range from prediabetic range. Continue to work on low carb diet. Kidney function stable in CKD stage III range. Recommend low sodium diet <2,000 mg per day, avoidance of NSAIDs, and increased water intake. New anemia compared to 6 months ago which is likely related to his recurrent blood in urine and recent bladder surgery. Recommend starting daily iron supplement with recheck in 1 month. Push PO fluids and may take OTC stool softener and/or miralax to prevent constipation from iron. Cholesterol in good range. Continue current regimen. documented in this encounterUniversity Hospitals Health System11-13-2023 History of Present illness Narrative* Lambert Gomez MD - 07/26/2023 8:45 AM EST Chief Complaint Patient presents with: Follow Up: 6 month HPI Tracy Gorman is a 72 year old male who presents here today for Above Complaints.. Patient states that he had multiple bladder masses removed on 07/23 after having gross hematuria and CT urogram showing multiple lesions. Pathology results still pending. Gross hematuria has resolvedsince surgery. Has f/u on 08/[address] Anne. Prediabetes: Taking metformin as prescribed. Asymptomatic. Due for repeat labs. BP well controlled on current regimen. PAD: taking Plavix and statin as prescribed. Managed by Dr. Pitts's office. Has US regularly. No claudication, cold extremities, cyanosis. AAA US completed 12/2022 and appeared stable. Due for f/u with hematology/oncology for CML. Still smoking <1/2 pack. Not interested in cessation. Discussed risks of continue smoking and benefits of cessation. Past medical history, appointments, medications, allergies reviewed. Previous Medical History PAST MEDICAL HISTORY Diagnosis Date Abdominal aortic aneurysm (AAA) without rupture (HCC) CT flank 01/21/21 Basal cell carcinoma (BCC) of skin of left ear 01/2022 Benign prostatic hyperplasia without lower urinary tract symptoms Bladder mass Dr. Anne Chronic kidney disease (CKD), stage III (moderate) (HCC) CML (chronic myeloid leukemia) (HCC) Dr. Cárdenas Hemorrhoid HTN (hypertension) Hyperlipidemia Leukocytosis MPN (myeloproliferative neoplasm) (HCC) PAD (peripheral artery disease) (HCC) Dr. Pitts Prediabetes Tobacco use disorder Vitamin D insufficiency Previous Surgical History PAST SURGICAL HISTORY Procedure Laterality Date ANGIOPLASTY Right 2019 right leg for claudication and toe discoloration [place] [facility] [place] [facility]COPY [facility] . COLONOSCOPY 2016 HEMORRHOID SURGERY HX PAST SURGICAL HISTORY OF Left 03/2022 Mohs for BCC behind left ear Family History FAMILY HISTORY Problem Relation Age of Onset Cancer Mother 80 Lung Cancer Hypertension Mother Lipids Mother Lipids Father Prostate Cancer Brother Patient Allergies ALLERGIES No Known Allergies Current Medications Current Outpatient Medications on File Prior to Visit Medication Sig finasteride (PROSCAR) 5 mg tablet Take 1 tablet by mouth once daily. rosuvastatin (CRESTOR) 10 mg tablet Take 1 tablet by mouth once daily. atenolol (TENORMIN) 100 mg tablet Take 1 tablet by mouth once daily. clopidogrel (PLAVIX) 75 mg tablet Take 75 mg by mouth once daily. Cholecalciferol, Vitamin D3, (VITAMIN D) 1,000 unit cap Take 1 capsule by mouth twice daily. Multivitamin capsule Take 1 capsule by mouth once daily. iv contrast (will be provided with radiology test) CT Urogram WO/W Inject, intravenously, once for 1 dose.No IV access, insert saline lock prior to the beginning of sedation, infusion, injection of imaging exam. Discontinue saline lock post exam. If Pt. has a central line or IVAD, may access for administration according to line specific nursing protocol. Once exam is complete flush line and de-access according to line specific nursing protocol in the CT contrast administration guidelines link. fenofibrate nanocrystallized (TRICOR) 145 mg tablet Take 1 tablet by mouth once daily. lisinopril (ZESTRIL) 20 mg tablet Take 1 tablet by mouth once daily. metFORMIN (GLUCOPHAGE) 500 mg tablet Take 1 tablet by mouth twice daily with meals. amLODIPine (NORVASC) 10 mg tablet Take 1 tablet by mouth once daily. Nicotine Polacrilex [address] 1 Lozenge between cheek and gum as needed (smoking). (Patient not taking: Reported on 07/19/2023) varenicline (CHANTIX) 1 mg tablet Take 0.5 tablets by mouth once daily for 3 days, THEN 0.5 tabletstwice daily for 4 days, THEN 1 tablet twice daily for 23 days. varenicline (CHANTIX) 1 mg tablet Take 1 tablet by mouth twice daily. No current facility-administered medications on file prior to visit. Social History Social History Tobacco Use Smoking status: Every Day Packs/day: 0.50 Years: 47.00 Additional pack years: 0.00 Total pack years: 23.50 Types: Cigarettes Smokeless tobacco: Never Tobacco comments: Less than 1/2ppd, does not finish the cigarette 08/27/22, start age 25 Vaping Use Vaping Use: Never used Substance Use Topics Alcohol use: No Drug use: No Review of Symptoms REVIEW OF SYSTEMS GENERAL: No weight loss, malaise or fevers RESPIRATORY: Negative for cough, hemoptysis, wheezing, COPD, dyspnea or shortness of breath CARDIOVASCULAR: Negative for chest pain, leg swelling, hypertension, CHF or palpitations GI: No nausea, vomiting, or diarrhea SKIN: Negative for lesions, rash, and itching EXAM: BP 122/74 Pulse 61 Resp 16 Wt 85.2 kg (187 lb 12.8 oz) SpO2 93% BMI 24.78 kg/m General Appearance: Well appearing, alert, in no acute distress, well-hydrated, well nourished.. Skin: Skin color, texture, turgor normal, no suspicious rashes or lesions. Lungs: Lungs clear to auscultation. No wheezing, rhonchi, rales.. Heart: RRR without murmur, gallop, or rubs. No ectopy. Abdomen: Normal abdominal exam, Abdomen soft, non-tender. Bowel sounds normal. No masses, organomegaly. Extremities: No deformities, edema, skin discoloration, clubbing or cyanosis. Good capillary refill. . Health Maintenance List BP Controlled (<130/80) Never done RSV Vaccine(1 - 1-dose 60+ series) Never done Advance Directive Discussion Never done Covid-19 Vaccine(2022- season) due on 08/07/2023 Annual PCP Team Chronic Disease Visit due on 01/23/2024 Lung Cancer Screening due on 06/23/2024 Serum Creatinine due on 06/25/2024 Colorectal Cancer Screening due on 01/26/2026 Diabetes Screening due on 04/20/2026 Lipid Screening due on 07/21/2027 DTaP,Tdap,Td Vaccine(6 - Td or Tdap) due on 09/21/2028 Abdominal Aortic Aneurysm Screening Completed Influenza Vaccine Completed Depression Assessment Completed Hepatitis C Screening Completed Shingrix Vaccine Completed Pneumococcal Vaccine: 65+ Completed HPV Vaccine Aged Out Data reviewed Component Latest Ref Rng & Units 01/20/2023 04/20/2023 WBC 3.70 - 11.00 k/uL 8.80 RBC 4.20 - 6.00 m/uL 5.24 Hemoglobin 13.0 - 17.0 g/dL 15.7 Hematocrit 39.0 - 51.0 % 47.9 MCV 80.0 - 100.0 fL 91.4 MCH 26.0 - 34.0 pg 30.0 MCHC 30.5 - 36.0 g/dL 32.8 RDW-CV 11.5 - 15.0 % 14.6 Platelet Count 150 - 400 k/uL 163 MPV 9.0 - 12.7 fL 9.0 Neut% % 64.8 Abs Neut (ANC) 1.45 - 7.50 k/uL 5.70 Lymph% % 25.5 Abs Lymph 1.00 - 4.00 k/uL 2.24 [place]% % 7.7 Abs [place] <0.87 k/uL 0.68 Eosin% % 1.5 Abs Eosin <0.46 k/uL 0.13 Baso% % 0.3 Abs Baso <0.11 k/uL 0.03 Immature Gran % % 0.2 IMMATURE GRANS (ABS) <0.10 k/uL <0.03 NRBC /100 WBC 0.0 Absolute nRBC <0.01 k/uL <0.01 DTYPE Auto Protein, Total 6.3 - 8.0 g/dL 7.0 7.2 Albumin 3.9 - 4.9 g/dL 4.7 4.7 Calcium 8.5 - 10.2 mg/dL 9.8 10.1 Bilirubin, Total 0.2 - 1.3 mg/dL 0.4 0.3 Alkaline Phosphatase 38 - 113 U/L 45 46 AST 14 - 40 U/L 15 23 ALT 10 - 54 U/L 9 (L) 12 Glucose 74 - 99 mg/dL 131 (H) 110 (H) BUN 9 - 24 mg/dL 36 (H) 29 (H) Creatinine 0.73 - 1.22 mg/dL 1.37 (H) 1.30 (H) Sodium 136 - 144 mmol/L 141 143 Potassium 3.7 - 5.1 mmol/L 4.4 4.6 Chloride 97 - 105 mmol/L 106 (H) 107 (H) CO2 22 - 30 mmol/L 28 24 Anion Gap 9 - 18 mmol/L 7 (L) 12 eGFR >=60 mL/min/1.73m 55 (L) 58 (L) Hemoglobin A1C 4.3 - 5.6 % 5.7 (H) Estimated Average Glucose mg/dL 117 ASSESSMENT/PLAN: 1. Primary hypertension - ICD9: 401.9, ICD10: I10 (primary diagnosis) - Controlled - Continue current medications - Recommend home blood pressure monitoring, to bring results to next visit - Encouraged sodium restriction, DASH or Mediterranean diet - Recommend regular aerobic exercise - ATENOLOL 100 MG TABLET - LISINOPRIL 20 MG TABLET 2. Mixed hyperlipidemia - ICD9: 272.2, ICD10: E78.2 - Control undetermined, due for labs - Continue current medications - Counseled on healthy diet and regular exercise - LIPID PANEL BASIC - FENOFIBRATE NANOCRYSTALLIZED 145 MG TABLET - ROSUVASTATIN 10 MG TABLET 3. Stage 3a chronic kidney disease (HCC) - ICD9: 585.3, ICD10: N18.31 - eGFR: 55 Stable - Counseled on avoiding NSAIDs, adequate hydration - Counseled on low sodium diet 4. Bladder mass - ICD9: 596.89, ICD10: N32.89 S/p cystoscopy with removal. F/u results and recommendations from urology 5. Hematuria, unspecified type - ICD9: 599.70, ICD10: R31.9 2/ #4. See above. Recheck CBC. 6. Prediabetes - ICD9: 790.29, ICD10: R73.03 Recheck A1c. Continue current regimen. - HGB A1C - METFORMIN 500 MG TABLET 7. CML (chronic myeloid leukemia) (HCC) - ICD9: 205.10, ICD10: C92.10 Repeat labs, f/u with hematology recommendations. - CBC + DIFF - COMP METABOLIC PANEL 8. S/P allogeneic bone marrow transplant (HCC) - ICD9: V42.81, ICD10: Z94.81 - AMLODIPINE 10 MG TABLET 9. Immunodeficiency (HCC) - ICD9: 279.3, ICD10: D84.9 - AMLODIPINE 10 MG TABLET 10. Benign prostatic hyperplasia without lower urinary tract symptoms - ICD9: 600.00, ICD10: N40.0 - FINASTERIDE 5 MG TABLET Lambert Gomez MD documented in this encounterUniversity [facility]als [facility]11-10-2023 Miscellaneous Notes* Telephone Encounter - Shawna Guzman - 07/23/2023 11:06 AM EST Patient still in hospital--left vox Patient on schedule: August 04, 2023 at 12: 30pm, [facility] location--ok'd by leona Will follow up once patient has been discharged. Thank you Shawna * Telephone Encounter - Tami Anne Jr., MD - 07/23/2023 10:27 AM EST [facility] OR 07/23/23 Fu with me 2-3 weeks documented in this encounterUniversity Hospitals Health System11-06-2023 History and physical note * Morgan Ingram PA - 07/19/2023 10:40 AM EST HISTORY AND PHYSICAL EXAMINATION SERVICE DATE: 07/19/2023 SERVICE TIME: 10:55 AM PRIMARY CARE PHYSICIAN: Lambert Gomez MD Assessment Patient has the following medical conditions which may affect marielena-operative course: Preop examination - Please see A&P for list of pertinent health issues. HTN (hypertension) - Amlodipine 10mg, Atenolol 100mg, Lisinopril 20mg. Instructed to take DOS. Hyperlipidemia - Rosuvastatin 10mg, Tricor. Continue as prescribed. Atrial fibrillation (HCC) - Plavix, Atenolol 100mg. - Pt denies diagnosis. PAD (peripheral artery disease) (HCC) - Plavix. - Pt had angioplasty 2x. Last procedure done about 1.5 years ago. Prediabetes - Metformin - A1C 5.7 Chronic kidney disease (CKD), stage III (moderate) ([facility]) - Cr 1.30. ECHO 12/06/17 CONCLUSIONS: - Technically difficult exam due to suboptimal positioning. - Exam indication: Atrial Fibrillation - The left ventricle is normal in size. Left ventricular systolic function is normal. EF = 57 5% (2D 4-ch.) Left ventricular diastolic function was not evaluated due to E/A fusion. - The right ventricle is normal in size. Right ventricular systolic function is normal. - AV anatomy not well visualized on current exam. - Exam was compared with the prior CC echocardiographic exam performed on 11/03/17. Higher HR today. Cavazos Activity Status Index: METS: Climb a flight of stairs or walk up a hill (5.50 METs) DASI Score: 5.5 Patient denies any chest pain or undue shortness of breath with the above physical activity. Clinical Frailty Scale: 3. Well, with treated comorbid disease ARISCAT Score: Age: 51-80 Preoperative SpO2: >=96% Respiratory infection in the last month: No Preoperative anemia: No Surgical incision: peripheral Duration of surgery: <2 hrs Emergency procedure: No ARISCAT Score: 3 ANESTHESIA FINDINGS: Intubation History: No prior intubation Significant Anesthesia Considerations: none Airway History: No prior intubation I - PHYSICAL EVALUATION AIRWAY Patient intubated: No. DENTAL Dentures, upper: complete. Dentures, lower: complete. II - ANESTHESIA PLAN Anesthetic Plan: general Beta Lisette Monitoring Plan Post Procedure Analgesic Plan REASON FOR VISIT: Tracy Gorman is a 72 year old male who is scheduled for Procedure(s): CYSTOSCOPY (N/A) RESECTION BLADDER TUMOR TRANSURETHRAL (N/A) INSTILL ANTICARCINOGENIC AGENT IN BLADDER (N/A) at the request of Dr. Tami Anne Jr. for routine H&P. My final recommendation will be communicated back to the requesting physician by wayof shared medical record or letter. Subjective The patient has the following: ACTIVE PROBLEM LIST Cml (Chronic Myeloid Leukemia) (Hcc) S/P Allogeneic Bone Marrow Transplant (Hcc) Tobacco Use Disorder Electrolyte and Fluid Disorder Immunodeficiency (Hcc) Pad (Peripheral Artery Disease) (Hcc) Mpn (Myeloproliferative Neoplasm) (Hcc) Hyperlipidemia Htn (Hypertension) Prediabetes Benign Prostatic Hyperplasia Without Lower Urinary Tract Symptoms Abdominal Aortic Aneurysm (Aaa) Without Rupture (Hcc) Chronic Kidney Disease (Ckd), Stage Iii (Moderate) (Hcc) Preop Examination COVID-19 Immunization Status Covid-19 Vaccine ( season) Next due on 08/07/2023 06/12/2023 Imm Admin: COVID-19 vaccine, age 12+ yr, season (PFIZER-BIONTECH) 07/24/2022 Imm Admin: COVID-19 vaccine, age 12+ yr, bivalent (AdThe[employer]-BIONTECH) 05/04/2022 Imm Admin: COVID-19 original vaccine, full dose, monovalent (MODERNA) Only the first 3 history entries have been loaded, but more history exists. CHIEF COMPLAINT: The reason for this visit is To perform a comprehensive review of the patients past medical history, assess their current health status and obtain any additional testing required based on anesthesia guidelines. To assess and identify potential anesthesia problems, particularly those that may suggest potential complications or contraindications to the planned procedure. HPI: Patient presents for Procedure(s): CYSTOSCOPY (N/A) RESECTION BLADDER TUMOR TRANSURETHRAL (N/A) INSTILL ANTICARCINOGENIC AGENT IN BLADDER (N/A). Pt states he has multiple lesions in his bladder. Pt states they were not determined as cancerous. Pt states they were discovered on a CT and scope that was done due to recurrent hematuria. Pt statesincreased frequency, urgency, nocturia. Patient denies any other problems or concerns at this time.Risks and benefits of the procedure discussed by Surgeon and patient agreed to proceed with plannedprocedure. REVIEW OF SYSTEMS: General: No weight loss, malaise or fevers. Neurological: Negative for: headaches, seizures and strokes. Respiratory: Negative for: asthma, COPD, current cough, dyspnea, tobacco use and obstructive sleep apnea. Cardiovascular: Positive for: hyperlipidemia and hypertension Negative for: AICD/PPM, angina, anticoagulation therapy, atrial fibrillation, CAD, chest pain, CHF and DVT/PE. GI: Negative for: abdominal pain, dysphagia, nausea and vomiting. : See HPI. Endocrine: Negative for: diabetes mellitus, hyperthyroidism and hypothyroidism. Hematology: Negative for: anemia, bruises/bleeds easily and chronic anti- coagulation/platelet meds. Oncology: See HPI. Psych: Negative for: anxiety and depression. Musculoskeletal: Negative for joint pain or swelling, back pain or muscle pain. Skin: Negative for lesions, rash and itching. PAST MEDICAL HISTORY Diagnosis Date Abdominal aortic aneurysm (AAA) without rupture (HCC) CT flank 01/21/21 Basal cell carcinoma (BCC) of skin of left ear 01/2022 Benign prostatic hyperplasia without lower urinary tract symptoms Chronic kidney disease (CKD), stage III (moderate) (HCC) CML (chronic myeloid leukemia) (HCC) Dr. Cárdenas Hemorrhoid HTN (hypertension) Hyperlipidemia Leukocytosis MPN (myeloproliferative neoplasm) (HCC) PAD (peripheral artery disease) (HCC) Dr. Pitts Prediabetes Tobacco use disorder Vitamin D insufficiency PAST SURGICAL HISTORY Procedure Laterality Date ANGIOPLASTY Right 2019 right leg for claudication and toe discoloration [place] [facility] [place] [facility]COPY [facility] . COLONOSCOPY 2016 HEMORRHOID SURGERY HX PAST SURGICAL HISTORY OF Left 03/2022 Mohs for BCC behind left ear FAMILY HISTORY Problem Relation Age of Onset Cancer Mother 80 Lung Cancer Hypertension Mother Lipids Mother Lipids Father Prostate Cancer Brother Social History Tobacco Use Smoking status: Every Day Packs/day: 0.50 Years: 47.00 Additional pack years: 0.00 Total pack years: 23.50 Types: Cigarettes Smokeless tobacco: Never Tobacco comments: Less than 1/2ppd, does not finish the cigarette 08/27/22, start age 25 Vaping Use Vaping Use: Never used Substance Use Topics Alcohol use: No Drug use: No Prior to Admission medications as of 07/19/23 1038 Medication Sig Last Dose Taking fenofibrate nanocrystallized (TRICOR) 145 mg tablet Take 1 tablet by mouth once daily. Taking Yes finasteride (PROSCAR) 5 mg tablet Take 1 tablet by mouth once daily. Taking Yes lisinopril (ZESTRIL) 20 mg tablet Take 1 tablet by mouth once daily. Taking Yes metFORMIN (GLUCOPHAGE) 500 mg tablet Take 1 tablet by mouth twice daily with meals. Taking Yes rosuvastatin (CRESTOR) 10 mg tablet Take 1 tablet by mouth once daily. Taking Yes amLODIPine (NORVASC) 10 mg tablet Take 1 tablet by mouth once daily. Taking Yes atenolol (TENORMIN) 100 mg tablet Take 1 tablet by mouth once daily. Taking Yes clopidogrel (PLAVIX) 75 mg tablet Take 75 mg by mouth once daily. Taking Yes Cholecalciferol, Vitamin D3, (VITAMIN D) 1,000 unit cap Take 1 capsule by mouth twice daily. TakingYes Multivitamin capsule Take 1 capsule by mouth once daily. Taking Yes iv contrast (will be provided with radiology test) CT Urogram WO/W Inject, intravenously, once for 1 dose.No IV access, insert saline lock prior to the beginning of sedation, infusion, injection of imaging exam. Discontinue saline lock post exam. If Pt. has a central line or IVAD, may access for administration according to line specific nursing protocol. Once exam is complete flush line and de-access according to line specific nursing protocol in the CT contrast administration guidelines link. Nicotine Polacrilex [address] 1 Lozenge between cheek and gum as needed (smoking). Patient not taking: Reported on 07/19/2023 Not Taking varenicline (CHANTIX) 1 mg tablet Take 0.5 tablets by mouth once daily for 3 days, THEN 0.5 tabletstwice daily for 4 days, THEN 1 tablet twice daily for 23 days. varenicline (CHANTIX) 1 mg tablet Take 1 tablet by mouth twice daily. No medication comments found. ALLERGIES No Known Allergies Objective PHYSICAL EXAM: General: alert and oriented and healthy appearance. Pertinent negatives noted - not distressed. Skin: normal color, no rash or lesions. HEENT: EOM intact and pupils equal round. Cardiovascular: regular rate and rhythm, normal S1 and S2, no rub, murmurs, or gallop. Respiratory: normal breath sounds, no wheezes or crackles. No chest wall deformity or tenderness. Abdomen: bowel sounds present. Pertinent negatives noted - no abnormal bowel sounds. Extremities: no deformity, no edema or tenderness, no joint swelling or clubbing. Neurological: normal cognition and motor skills. Gait normal. No weakness or sensory deficit. PAIN ASSESSMENT: Pain Pain Level: 0 VITALS: BP 138/86 Pulse 67 Temp 97 Resp 18 Ht 6' 1 (1.85m) Wt 185 lb (83.9kg) SpO2 98% BMI 24.41 kg/(m^2). Diagnostic tests reviewed for today's visit: Lab Value Units Date High Low HB 15.7 g/dL 01/20/2023 17.0 13.0 HCT 47.9 % 01/20/2023 51.0 39.0 WBC 8.80 k/uL 01/20/2023 11.00 3.70 PLT 163 k/uL 01/20/2023 400 150 NA 143 mmol/L 04/20/2023 144 136 K 4.6 mmol/L 04/20/2023 5.1 3.7 GLUC 110 mg/dL 04/20/2023 99 74 BUN 29 mg/dL 04/20/2023 24 9 CREAT 1.14 mg/dL 06/25/2023 1.22 0.73 PTSEC No results within date range. INR No results within date range. APTT No results within date range. ALT 12 U/L 04/20/2023 54 10 AST 23 U/L 04/20/2023 40 14 TBILI 0.3 mg/dL 04/20/2023 1.3 0.2 TSH No results within date range. Lab Value Units Date High Low HCGQT No results within date range. UHCG No results within date range. HCG, BODY* No results within date range. Lab Value Units Date High Low ABORHD No results within date range. ABSCREEN No results within date range. Hemoglobin A1C (%) Date Value 01/20/2023 5.7 07/21/2022 5.8 01/20/2022 5.9 11/03/2021 6.1 07/30/2021 6.4 01/27/2021 6.1 07/18/2020 5.9 01/08/2020 5.8 No results found for this or any previous visit (from the past 8760 hour(s)). No results found for this or any previous visit (from the past 94153 hour(s)). Prepared for Surgery: CONSULTS: Patient does not require consults for optimization at this time Planned Anesthetic: general The Following Tests/Procedures Have Been Initiated: No orders of the defined types were placed in this encounter. Implantable Devices: None The Following Tests/Procedures Have Been Initiated: UC ordered per surgeon. Assessment/Plan Bladder mass [N32.89] PLAN Diagnosis: Planned Procedure: Procedure(s): CYSTOSCOPY (N/A) RESECTION BLADDER TUMOR TRANSURETHRAL (N/A) INSTILL ANTICARCINOGENIC AGENT IN BLADDER (N/A) I spent a total of 50 minutes on the date of the service which included preparing to see the patient, [id number] patient care, completing clinical documentation, performing a medically appropriate examination, and counseling and educating the patient/family/caregiver. Instructions Given to Patient: Instructions located in the after visit summary. Patient given verbal and written preop instructions and voices comprehension and compliance. SIGNATURE: WENDY Aquino PATIENT NAME: Tracy Gorman DATE: July 19, 2023 TIME: 8:55 AM PAGER/CONTACT #: documented in this encounterUniversity Hospitals Health System11-06-2023 Instructions* Patient Instructions* Morgan Ingram PA - 07/19/2023 8:55 AM EST PATIENT PREOPERATIVE INSTRUCTIONS Your surgeon has scheduled for your procedure at this surgery center: [facility] [address], [address], [place], [address] Current Outpatient Medications on File Prior to Visit Medication Sig fenofibrate nanocrystallized (TRICOR) 145 mg tablet Take 1 tablet by mouth once daily. Continue as prescribed. finasteride (PROSCAR) 5 mg tablet Take 1 tablet by mouth once daily. Continue as prescribed. lisinopril (ZESTRIL) 20 mg tablet Take 1 tablet by mouth once daily. Take morning of procedure. metFORMIN (GLUCOPHAGE) 500 mg tablet Take 1 tablet by mouth twice daily with meals. Hold morning of procedure. rosuvastatin (CRESTOR) 10 mg tablet Take 1 tablet by mouth once daily. Continue as prescribed. amLODIPine (NORVASC) 10 mg tablet Take 1 tablet by mouth once daily. Take morning of procedure. atenolol (TENORMIN) 100 mg tablet Take 1 tablet by mouth once daily. Take morning of procedure. clopidogrel (PLAVIX) 75 mg tablet Take 75 mg by mouth once daily. Follow instructions provided. Cholecalciferol, Vitamin D3, (VITAMIN D) 1,000 unit cap Take 1 capsule by mouth twice daily. Hold 7 days prior. Multivitamin capsule Take 1 capsule by mouth once daily. Hold 7 days prior. Please read below carefully for your personalized instructions. Arrival Time for Surgery: DATE: 07/23/23 Your surgeon's office will provide you with your ARRIVAL TIME for surgery. - If you have not received an arrival time by the afternoon before your surgery date, please followup with your surgeon's office. - If you are scheduled for a Wednesday surgery, please make sure you have your arrival time by Wednesday afternoon. - Please be aware that emergency situations arise, which may delay or change your surgical time. Ifthis happens, your surgeon's office will notify you as soon as possible and regret any inconvenience. Requirement for Vaccinations : 72-hour period between getting vaccine and date of surgery. Dietary Restrictions: - Nothing to eat after midnight. - You may have 12 ounces of clear liquids ( water, Gatorade, apple juice, carbonated beverage, clear tea or black coffee) until 4 hours before your surgery. This is important because if you do, your surgery may have to be cancelled Blood Thinning Medications: - Stop NSAIDS (Ibuprofen, Advil, Aleve, Motrin, Celebrex, Mobic, etc.) 7 days before surgery, as directed by your surgeon. You may take Tylenol (Acetaminophen) or any of your pain medications that do not contain aspirin orNSAIDS as needed. IF YOU TAKE ANY OF THE FOLLOWING BLOOD THINNERS, PLEASE CONTACT YOUR SURGEON AND THE PHYSICIAN WHO PRESCRIBES IT FOR YOU IN ORDER TO GET PERIOPERATIVE INSTRUCTIONS SOON POSSIBLE. BLOOD THINNERS: Aspirin , Coumadin, Plavix, Eliquis, Pradaxa, Xarelto, Lovenox, Brilinta, Effient, Savaysa, Arixtra, etc - Stop Vitamin E, fish oil, multivitamins, Marijuana, CBD oil and other over the counter herbals and dietary supplements 7 days before surgery. -This would not apply to cancer patients who are prescribed Marinol or any other prescription form on marijuana or CBD. -exception Dr. Gallardo and Dr. Mcdonnell want their patients npo at midnight. Medications: Approved medications to take the morning of surgery with a sip of water: BP, HCTZ, Heart, thyroid, psych, seizure, and pain medications excluding NSAIDS. Use inhalers as prescribed. Please bring inhalers. - If you take Phentermine anesthesia recommends you hold Phentermine 4 days before surgery. Preoperative Instructions for Patients with Diabetes Mellitus: Please follow up with the provider that manages your diabetes and how to prepare you for surgery and provide you with insulin instructions. Do not take the morning of surgery; Trajenta, Metformin, Actos/Pioglitazone and Amaryl/Glimepiride. For the following Medications, please HOLD 2 DAYS PRIOR TO SURGERY: Glucotrol/Glipizide, Januvia/Sitagliptin, Glyburide, Prandin/Repaglinide, Starlix/Nateglinide, Symlin/Pramlintide, For the following Medications, please HOLD 3 DAYS PRIOR TO SURGERY: Canagliflozin/Invokana, Dapagliflozin/Farxiga ,Empagliflozin/Jardiance, Invokamet/canagliflozin and metformin, Xigduo XR/ dapagliglozin and metformin, Glyxambi/ empagliflozin and metformin, Syndardy/ empagliflozin and metformin For the following Medications, please HOLD 4 DAYS PRIOR TO SURGERY: Ertugliflozin/Steglatro For the following Medications, please HOLD 7 DAYS PRIOR TO SURGERY: GLP-1 AGONIST: Adlyxin (lixisenatide), Bydureon BCise (exenatide suspension), Byetta (exenatide), Mounjaro (tirzepatide), Ozempic (semaglutide injection), Rybelsus (semaglutide tablets), Tanzeum (albiglutide), Trulicity (dulaglutide), Victoza (liraglutide), Wegovy (semaglutide), Saxenda (liraglutide) Pain Medications: Tylenol for pain as needed and if you are not allergic to. If you start any new medications after today's visit, please contact the surgeon's office. Important Reminders: - If you use CPAP/BIPAP, bring the machine with you to the surgery center. - If you are prescribed inhalers for breathing, continue using them AND bring them to the surgery center. - Candy, mints, gum and tobacco products are NOT permitted the morning of surgery. - Hearing aids, dentures and glasses may be worn the morning of surgery. - NO jewelry, body piercings, makeup, hairpins or contacts are to be worn the day of surgery. -Oral hygiene and a shower or bath is required the evening before or the morning of surgery. Use the Hibiclens body wash supplied to you along with the instruction. - NO lotion, creams, powders or deodorants on the skin the day of surgery -Wear loose, comfortable clothing that will accommodate bandages. -Your length of stay will be determined by your surgeon - You will need to have someone else (Family or friend) drive you home once discharged from the hospital. You are not allowed to drive yourself home after surgery. - YOU MUST HAVE A RESPONSIBLE MANAGER BUSINESS BANKING TAKE YOU HOME. A INORGANIC CHEMISTRY TEACHER, CAB OR UBER MANAGER BUSINESS BANKING CANNOT BE [employer] RESPONSIBLE MANAGER BUSINESS BANKING. - You cannot stay in a hotel alone after outpatient surgery. You will not be permitted to have yoursurgery, if you do not have someone to take care of you. --IF you are having a TOTAL KNEE, HIP REPLACEMENT OR ORTHOPEDIC SURGERY: -Orthopedic patients having surgery [facility] listed as outpatient should bring their walker into the building. -Orthopedic patients having surgery [facility] listed as to be admitted should leave their walkers in the car or with a family member -IF you are having a TOTAL KNEE OR HIP REPLACEMENT or Orthopedic surgery at [facility], please bring your walker into the building with you. Visitors to any [facility] facility: An individual who is sick should not visit. Visitors to patients with COVID-19 must follow these guidelines, which include wearing a mask, eye protection, gown and gloves. [facility]: Given COVID 19 pandemic, one visitor is allowed in the hospital. They may wait in the surgerywaiting room while you are in surgery but must wear a mask. Only one visitor will be permitted to visit you while your admitted after surgery. If you develop symptoms such as a fever, cold, or flu, or have other changes to your health within TWO DAYS of scheduled surgery or the morning of surgery, please contact the surgery center above. [facility]- Visitations are: Visitation hours are from 7 a.m. to 9 p.m. Pre- Surgery-Patients may have up to two visitors at a time. PACU-Patients may have up to 1-2 visitors at a time. [facility] Surgery Center: Any individual who is sick should not visit. [facility] Pre surgery- One visitor in Pre-surgery due to limited spaced ASC PACU- No visitors in PACU unless it's a minor due to limited spaced. Personal Belongings: - Leave ALL valuables and money at home or with family members. - You will need a form of ID and insurance card to check in the morning of surgery. - You will have to wear a hospital gown during your stay but if you wish to bring undergarments forafter surgery you may. Ambulatory surgery center [place]- orthopedic patients needing a walker should bring the walker into the building day of surgery. Orthopedic patients having surgery [facility] listed as outpatient should bring their walker into the building. Orthopedic patients having surgery [facility] listed as to be admitted should leave their walkers in the car or with a family member. If you already have an Advance Directive, please fax a copy to [phone] or email to for it to be added to your chart. If you do not have an Advance Directive, you can find the appropriate form and more information at [email or web address]. We recommend that youcomplete the Advance Directive form found on the website and bring it with you the day of your surgery. It can be witnessed and scanned into your chart that day. WENDY Aquino 07/19/23 documented in this encounterUniversity Hospitals Health System2023 Miscellaneous Notes* Addendum Note - Leona Flores Ma - 07/07/2023 2:41 PM EDTAddended by: LEONA FLORES MA on: 07/07/2023 02:41 PM Modules accepted: Orders documented in this encounterUniversity Hospitals Health System2023 Procedure note* Tami Anne Jr., MD - 07/07/2023 12:57 PM EDT CYSTOSCOPY PROCEDURE NOTE: Tracy Gorman is a 72 year old male who presents with hematuria gross for cystoscopy. Pt ID verified with patient: Yes Fire risk assessment done Procedure verified with patient: Yes Procedure confirmed with physician and collection support specialist: Yes UNIVERSAL PROTOCOL / SAFETY CHECKLIST Procedure to be Performed: cystoscopy Sign In: A Moment of CARE was completed. Personnel directly involved with the procedure wore the appropriate PPE (Personal Protective Equipment). Patient/Surrogate Stated/Verified: PATIENT VERIFIED(optional for EMERGENT procedures): Patient name, Date of , Relevant allergies, and The intended procedure Time Out Communication: Intended patient and procedure match the source documents. Consent documented and matches the intended procedure. Sign Out: SIGN OUT (optional for EMERGENT procedures): No specimen collected. Tami Anne Jr, MD Pre procedure dx: gross hematuria Post procedure dx: same A urinalysis was performed revealing no evidence of infection. The benefits, risks, alternatives of the cystoscopy procedure and personnel were discussed with thepatient. The verbal consent was obtained and the patient agrees to proceed. Procedure: The patient was placed on the procedure table in the supine position and prepped and draped in the usual sterile fashion. 2% Lidocaine Jelly was placed per urethra as an anesthetic in the standard fashion. Once adequate local anesthesia was achieved, the tip of the flexible cystoscope was carefully placed into the urethra under direct visual guidance. The scope was negotiated through the pendulous urethra to the level of the bulbar urethra with no evidence of stricture. The verumontanum came into view and the scope was negotiated through the prostatic urethra which showed evidence of a patent prostatic urethra. The bladder was entered and careful mercer endoscopy was carried out. The posterior, superior and lateral benz and dome of the bladder were all well visualized and the scope was retroflexed upon itself. The findings were consistent with several papillary lesions. At the conclusion of the procedure, the flexible cystoscope was removed atraumatically. The patienttolerated the procedure without complications. Patient was given standard post-procedure instructions, and was directed to complete the course of oral antibiotics and increase oral fluid intake as directed. ASSESSMENT/PLAN: Cystoscopy, pyelogram, turbt, instillation gemcitabine All r/b/a of surgery discussed, infection, bleeding, damage to nearby structures, possibility of hole in bladder, repeat surgery, lower urinary tract symptoms, the possibility of stents,catheterizations, possibility of going home with catheter. , heart attack, stroke, deep vein thrombosis, pulmonary embolus. Patient verbalized understanding and agrees to proceed. Tami Anne Jr, MD documented in this encounterUniversity Hospitals Health System10-19-2023 History of Present illness Narrative* Candy Bailey, RT(R) - 07/01/2023 1:00 PM EDT Radiology Service Progress Note DATE OF SERVICE: July 01, 2023 TIME: 3:27 PM PATIENT IDENTITY VERIFICATION COMPLETED USING TWO (2) STANDARD IDENTIFIERS: Name and Date of confirmed by patient verbally. FALL SCREENING: Has the patient had 2 falls in the last year or 1 fall with injury or currently using an Ambulatory Assistive Device (Walker, Cane, Wheelchair, Crutches, etc.)? No PATIENT GENDER DATA: Male PATIENT RELEVANT IMPLANT DATA REVIEWED: Yes ALLERGIES: Reviewed and unchanged CONTRAST ALLERGY: NO. EXAM: CT -CONTRAST INDUCED NEPHROPATHY RISK FACTORS: Patient age > 60 years CREATININE: Creatinine Date Value Ref Range Status 06/25/2023 1.14 0.73 - 1.22 mg/dL Final 04/20/2023 1.30 (H) 0.73 - 1.22 mg/dL Final 01/20/2023 1.37 (H) 0.73 - 1.22 mg/dL Final Estimated Glomerular Filtration Rate Date Value Ref Range Status 06/25/2023 68 >=60 mL/min/1.73m Final Comment: Estimated Glomerular Filtration Rate (eGFR) is calculated using the 2020 CKD-EPI creatinine equation. This equation utilizes serum creatinine, sex, and age as parameters. The creatinine assay has traceable calibration to isotope dilution- mass spectrometry. Refer to KDIGO guidelines for clinical interpretation. In patients with unstable renal function, e.g. those with acute kidney injury, the eGFRmay not accurately reflect actual GFR. eGFR- Date Value Ref Range Status 07/30/2021 >60 Final P.O.C.T. RESULTS: POC done: Yes, See Lab Tab July 01, 2023 TREATMENT: N/A PERIPHERAL IV DATA: Ambulatory: A peripheral IV was started in the Left antecubital site with a Angio cath: 22 gauge. RADIOLOGY DEPARTMENT: CT; Exam(s) Completed: Chest Abdomen Pelvis SIGNATURE: RT Janel(R) PATIENT NAME: Tracy Gorman DATE: July 01, 2023 TIME: 3:27 PM documented in this encounterUniversity Hospitals Health System10-11-2023 Instructions* Patient Instructions* Rachael English, TALIB.LINEN ROOM SUPERVISOR - 06/23/2023 9:18 AM EDT Previous multiple right and left lung nodules identified on your last CT 04/2022 have are stable (unchanged), and no new nodules of concern were seen on the exam. These nodules are now considered to be a LUNG-RADS CAT 2 due to their stability, and the likelihood of these representing a cancer are less than 1%. I would like to see you back in one year to re-assess these lung nodules. This recommendation is subject to change, pending final radiology report. It is important to continue with yearly lung cancer screening to ensure that these nodules do not change or grow, as well as to monitor for new nodules that could be concerning. Cigarette Logs : Record every single smoked cigarette on a cigarette log (either on their smartphone or with paper and pencil) contiguous to the smoking. Logging your smoked cigarettes in real-time (while smoking) helps quantify consumption accurately and helps you and your act of smoking become more mindful versus automatically, habitually without thought or cognizance. You can't change something if you can't measure the change. We discussed behavioral modification methods in order to unpair certain habits of smoking with specific activities and to help wean down the patient's smoking over time in order to minimize withdrawal effects of reduction in nicotine intake. Patient was instructed to smoke every hour on the hour during waking hours and not pair the cigarette with a normal activity such as coffee or driving as he or she normally would have. Patient was instructed to do this for a week and then cut back to smoking one cigarette every other hour for the second week, then cut back to smoking a cigarette every third hour on the third week, and quit on week 4. I instructed patient when starting this method to not smoke any more cigarettes than they normally would have smoked in a day and if they smoke less than 10 cigarettes per day to set those cigarettesout ahead of time and space them out evenly throughout the day to ensure they aren't increasing their cigarette consumption. Oral Substitutes/Hydration Drinking water is a superb coping technique. Snacking on crunchy, nutrient dense, low calorie foodssuch as chopped peppers, celery, or carrots can be extremely helpful. Using cinnamon sticks, plastic straws, and sugarless gum/ candy are also excellent oral substitutes. Phone [phone] ([phone]) as additional resource. Rachael English APRN.JOAO June 23, 2023 9:16 AM Lung Cancer Screening Scheduling Number: [phone] Billing Questions: or [email or web address] documented in this encounterUniversity Hospitals Health System10-11-2023 History of Present illness Narrative* Rachael English APRN.JOAO - 06/23/2023 9:00 AM EDT [facility] Lung Cancer Screening Annual Visit Chief Complaint: Established patient in lung cancer screening program here for annual follow-up. Current Exam Type: annual LDCT Number of Pack Years: 47 Current smoker (=0 The patient's smoking history is similar to prior year shared decision visit. Impression / Recommendations Tracy Gorman presents for annual lung cancer screening annual exam and nodule evaluation. Plan: 1.Lung nodules - ICD9: 793.19, ICD10: R91.8 Previous multiple tiny RUL, MOON, LLL lung nodules < 5 mm identified on the last CT 04/2022 are stable (unchanged), and no new nodules of concern were seen on the exam. Plan; Recommended follow-up in one year. This recommendation is subject to change, pending final radiology report. The patient was counseled on the importance of adherence to annual LDCT lung cancer screening, impact of comorbidities and ability or willingness to undergo diagnosis and treatment. Nature of the lung nodule(s) and the options for further evaluation discussed in detail with patient. Tracy Gorman expressed understanding and is in agreement with plan. 2.Encounter for screening for malignant neoplasm of lung - ICD9: V76.0, ICD10: Z12.2 (primary diagnosis)I have determined that the patient is eligible for continued low dose CT screening based on age, absence of signs or symptoms of lung cancer, smoking history and total pack years. The patient was counseled on the importance of adherence to annual LDCT lung cancer screening, impact of comorbidities and ability or willingness to undergo diagnosis and treatment. The patient understands and feels comfortable with it: Yes. 3. Smoker - ICD9: 305.1, ICD10: F17.200 - Cessation encouraged. - Physiologic and physical aspects of tobacco addiction as well as strategies for quitting were discussed. - Counseling was given focusing on the harmful effects of this addiction especially given the patient's medical condition(s) which will be worsened because of the chemicals in tobacco. - Recommended to called 1-800-QUIT NOW The patient was counseled on the importance of smoking cessation if current smoker and, if appropriate, offered additional tobacco cessation counseling services - Smoking Cessation Counseling. SMOKING CESSATION COUNSELING Smoking cessation methods including Nicotine Replacement Therapies and Behavior Modification were discussed with the patient and assistance offered. The medical conditions adversely affected by cigarette use include:Emphysema and CAD. Counseled on benefits of quitting smoking, recommended cessation or reduction to prevent development and/or progression of emphysema. Smokes 0.5 ppd Advised to set a quit date. Discussed NRTs nicotine lozenges/nicotine patch, side effects, dosage and administration. Cigarette Logs : Record every single smoked cigarette on a cigarette log (either on their smartphone or with paper and pencil) contiguous to the smoking. Logging your smoked cigarettes in real-time (while smoking) helps quantify consumption accurately and helps you and your act of smoking become more mindful versus automatically, habitually without thought or cognizance. You can't change something if you can't measure the change. We discussed behavioral modification methods in order to unpair certain habits of smoking with specific activities and to help wean down the patient's smoking over time in order to minimize withdrawal effects of reduction in nicotine intake. Patient was instructed to smoke every hour on the hour during waking hours and not pair the cigarette with a normal activity such as coffee or driving as he or she normally would have. Patient was instructed to do this for a week and then cut back to smoking one cigarette every other hour for the second week, then cut back to smoking a cigarette every third hour on the third week, and quit on week 4. I instructed patient when starting this method to not smoke any more cigarettes than they normally would have smoked in a day and if they smoke less than 10 cigarettes per day to set those cigarettesout ahead of time and space them out evenly throughout the day to ensure they aren't increasing their cigarette consumption. Oral Substitutes/Hydration Drinking water is a superb coping technique. Snacking on crunchy, nutrient dense, low calorie foodssuch as chopped peppers, celery, or carrots can be extremely helpful. Using cinnamon sticks, plastic straws, and sugarless gum/ candy are also excellent oral substitutes. Phone [phone] ([phone]) as additional resource. The patient is currently not ready to quit. I personally spent 6 minutes in counseling. The time spent in smoking cessation counseling is exclusive of any other counseling during this visit. 4. Coronary artery calcification seen on CT scan - ICD9: 414.00, ICD10: I25.10 Moderate CAD noted on last Ldct Plans to follow up with PCP During this patient visit I spent approximately 30 minutes including over 50% of the total time spent in [id number] encounter, and the remaining time spent in counseling and care coordination, review of consult notes, prior labs/imaging and coordinating future care for this patient; questions andconcerns for the patient and their family member (if present) were addressed during this visit. Rachael English APRN.[facility] June 23, 2023 8:16 AM History of Present Illness: Tracy Gorman is a 72 year old male who is presenting today for annual lung cancer screening LDCT and nodule follow-up. Patient has nodules found on lung cancer screening LDCT. Last LDCT was performed on 04/2022 and was LUNG RADS Category 2. 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 Patient is a active smoker with a 47 pack year history, currently still smoking 10 cigarettes daily. Patient will continue to be eligible for lung cancer screening until age 77. The patient does not have any B symptoms or signs of lung cancer. Notes sob with climbing > 2 flight of stairs, however limited due to right leg pain. Very seldom cough with clear mucus. Intentional weight loss cut down on sugar. Denies recent URIs, hospitalization for pneumonia, hemoptysis, fevers/chills, wheezing, chest tightness, chest palpitations, use of inhalers, chest pain, LE edema,unintentional wt loss, altered appetite or neck axillary lumps. ECOG PERFORMANCE STATUS: 1- Restricted in physically strenuous activity. Carries out light duty. Last 12 Encounter Wt Readings: Date: Wt: 01/22/2023 85 kg (187 lb 6.4 oz) 08/27/2022 86.2 kg (190 lb) 08/10/2022 86.9 kg (191 lb 9.6 oz) 07/30/2022 84.8 kg (187 lb) 07/24/2022 85.6 kg (188 lb 12.8 oz) 05/28/2022 88.4 kg (194 lb 12.8 oz) 04/28/2022 88 kg (194 lb) 03/06/2022 87.9 kg (193 lb 12.8 oz) 02/13/2022 88.9 kg (196 lb) 01/20/2022 87.4 kg (192 lb 9.6 oz) 08/01/2021 91.6 kg (202 lb) 07/30/2021 91.6 kg (202 lb) Family Hx: FAMILY HISTORY Problem Relation Age of Onset Cancer Mother 80 Lung Cancer Hypertension Mother Lipids Mother Lipids Father Prostate Cancer Brother Past Medical History: PAST MEDICAL HISTORY Diagnosis Date Abdominal aortic aneurysm (AAA) without rupture (HCC) CT flank 01/21/21 Basal cell carcinoma (BCC) of skin of left ear 01/2022 Benign prostatic hyperplasia without lower urinary tract symptoms Chronic kidney disease (CKD), stage III (moderate) (HCC) CML (chronic myeloid leukemia) (HCC) Dr. Cárdenas Hemorrhoid HTN (hypertension) Hyperlipidemia Leukocytosis MPN (myeloproliferative neoplasm) (HCC) PAD (peripheral artery disease) (HCC) Dr. Pitts Prediabetes Tobacco use disorder Vitamin D insufficiency Surgical Hx: PAST SURGICAL HISTORY Procedure Laterality Date ANGIOPLASTY Right 2019 right leg for claudication and toe discoloration [place] [facility] [place]2017 COLONOSCOPY [facility] . COLONOSCOPY 2016 HEMORRHOID SURGERY HX PAST SURGICAL HISTORY OF Left 03/2022 Mohs for BCC behind left ear Allergies: ALLERGIES No Known Allergies Social History Tobacco Use: 1 packs/day, for 50 years. Types: Cigarettes Review Of Systems: See HPI for ROS All of the remainder systems were reviewed and negative. PHYSICAL EXAMINATION: BP 139/89 Pulse 60 Wt 185 lb 14.4 oz (84.3kg) SpO2 98% General appearance: Well appearing, alert, in no acute distress, well-hydrated, well nourished. Skin: Skin color normal, no suspicious rashes or lesions Oropharynx: Lips, mucosa normal, oropharynx normal Neck: Supple, no adenopathy Lungs: Lungs clear to auscultation. No wheezing, rhonchi, rales. Heart: RRR without murmur, gallop, or rubs. No ectopy Musculoskeletal: No joint swelling, deformity, or tenderness Peripheral pulses: Pulses palpable, radial=4/4 Neuro: Alert & oriented X 3 Data Review I have visually reviewed imaging and testing below CT imaging done today was reviewed independently and compared to prior CT chest imaging by practitioner and awaiting radiology review. Ct chest 06/23/[address] chest 04/2022 Previous multiple tiny RUL, MOON, LLL lung nodules < 5 mm identified on the last CT 04/2022 are stable (unchanged), and no new nodules of concern were seen on the exam. Imaging Last CT/CTA Chest/Lungs CT LUNG SCREEN WO IVCON Exam End: 06/23/2023 7:07 AM (In process) LDC 04/28/2022 LungRADS category: 2 LungRADS modifier: Significant other (S), coronary artery calcification, moderate or severe LungRADS 0 reason: n/a Recommendations: Continue annual screening with LDCT in 12 months. Other actionable findings: Nodule 1: This solid nodule is located in the left lower lobe on slice number 202 with an average diameter of 3 mm . Nodule 2: This calcified nodule is located in the left lower lobe on slice number 230 with an average diameter of 3 mm . Nodule 3: This solid nodule is located in the left upper lobe on slice number 121 with an average diameter of 2 mm . Nodule 4: This calcified nodule is located in the right middle lobe on slice number 204 with an average diameter of 6 mm . Nodule 5: This solid nodule is located in the right upper lobe on slice number 53 with an average diameter of 2 mm . If this is an ANNUAL LDCT for LCS, please ensure nodule number is the same as in the prior evaluation. Other lung nodule comments: Multiple bilateral calcified granulomas are unchanged. Other findings: The central airways are patent without evidence of endobronchial lesion. Mild diffuse bronchial wall thickening is seen. There is no new focal lung consolidation. There is no pleural effusion or pneumothorax. No enlarged supraclavicular, axillary, mediastinal or hilar lymph nodes are seen. The ascending aorta is ectatic measuring 4.0 cm in diameter. The main pulmonary artery is normal in course and caliber. The heart size is normal. There is no pericardial effusion. The thyroid gland is unremarkable. The esophagus is nondilated. The soft tissues of the chest wall are unremarkable. The visible portion of the upper abdomen is unremarkable. No destructive bone lesion is seen. Emphysema: Mild (5-25%), centrilobular, upper lobe Coronary Artery Calcifications: Circumflex mild; Left Anterior Descending moderate; Right Coronary mild Last CT Chest - Impression Only CT CHEST W CONTRAST Collected: 05/18/2014 9:12 AM (Final result) Last XR Chest - Impression Only XR CHEST 1V FRONTAL PORT Collected: 12/22/2017 9:55 AM (Final result) Impression: IMPRESSION: Lines, tubes, and devices: Right IJ venous catheter terminates in the right atrium. Lungs and pleura: Diffuse reticular and airspace opacities are noted bilaterally, likely related to pulmonary edema. Small left pleural effusion is noted. A calcified granuloma is noted in the right midlung. No pneumothorax. ... Pulmonary Function Testing: SPIROMETRY BASELINE ONLY ([id number]) - ordered on 09/22/18 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 1 11/25/2018 12:25:46PM ATS acceptability and repeatability standards for spirometry met. ATS acceptability and repeatability standards for DLCO met. DLCO is not hemoglobin corrected. //DOROTHY IMPRESSION: Spirometry is normal. The diffusing capacity is mildly reduced. The presence of a reduced DLCO that normalizes when corrected for volume is consistent with a nonparenchymal disorder but does not rule out parenchymal or pulmonary vascular disease. Electronically Signed On 11-25-2018 16:44:12 EDT by Fellow Suma Noonan MD Electronically Signed On 11-28-2018 15:41:52 EDT by Cristhian Fowler MD [facility] [place] Pulmonary Function Lab Pred LLN ULN Pre % Date [id number] Time 10:56AM Height 184.8 Weight 90.4 FVC 4.97 3.97 5.98 4.51 91 FEV 1 3.69 2.84 4.54 3.02 82 FEV1%F 74.02 64.34 83.70 67.08 91 FEV 2 4.08 3.04 5.12 3.57 88 FEV 3 4.53 3.52 5.55 3.81 84 FEV3%E 90.64 86.00 95.28 84.61 93 MEF 50 4.61 2.99 6.23 2.21 48 FIF 50 7.40 F25/75 2.84 1.11 4.56 1.75 62 FE%FIF 29.90 FEV6 4.21 PEF 9.00 6.64 11.36 7.87 88 FET 9.41 FETPEF 0.07 VBe%FV 3.28 VBEex 0.15 DLCO 27.76 19.75 35.76 18.94 68 DL/VA 3.84 2.64 5.04 2.72 71 VA 7.35 5.98 8.72 6.96 95 YARITZA 4.97 3.97 5.98 4.50 90 BHT 10.60 documented in this encounterUniversity Hospitals Health System10-11-2023 History of Present illness Narrative* Rebecca Emerson CT - 06/23/2023 7:00 AM EDT Radiology Service Progress Note PATIENT NAME: Tracy Gorman DATE OF SERVICE: June 23, 2023 TIME: 7:05 AM PATIENT IDENTITY VERIFICATION COMPLETED USING TWO (2) IDENTIFIERS: Name and Date of confirmedby patient verbally and Name and Date of confirmed by identification band. FALL SCREENING: Has the patient had 2 falls in the last year or 1 fall with injury or currently using an Ambulatory Assistive Device (Walker, Cane, Wheelchair, Crutches, etc.)? No PATIENT GENDER DATA: Male PATIENT RELEVANT IMPLANT DATA REVIEWED: Not Applicable RADIOLOGY DEPARTMENT: CT; Exam(s) Completed: Chest PERIPHERAL IV DATA: Not applicable SIGNED BY: KI Arvizu June 23, 2023 7:05 AM documented in this encounterUniversity Hospitals Health System10-11-2023 Miscellaneous Notes* [facility] - Rebecca Emerson CT - 06/23/2023 7:00 AM EDT Radiology Service Progress Note PATIENT NAME: Tracy Gorman DATE OF SERVICE: June 23, 2023 TIME: 7:03 AM PATIENT IDENTITY VERIFICATION COMPLETED USING TWO (2) IDENTIFIERS: Name and Date of confirmedby patient verbally and Name and Date of confirmed by identification band. FALL SCREENING: Has the patient had 2 falls in the last year or 1 fall with injury or currently using an Ambulatory Assistive Device (Walker, Cane, Wheelchair, Crutches, etc.)? No PATIENT GENDER DATA: Male PATIENT RELEVANT IMPLANT DATA REVIEWED: Not Applicable RADIOLOGY DEPARTMENT: CT; Exam(s) Completed: Chest PERIPHERAL IV DATA: Not applicable SIGNED BY: KI Arvizu June 23, 2023 7:03 AM documented in this encounterUniversity Hospitals Health System10-06-2023 Instructions* Patient Instructions* Wood Fitzgerald PA-C - 06/18/2023 9:[address] Urogram to be scheduled at [facility] Cystoscopy to scheduled at [facility]-will contact patient # [phone] Urine Culture -Pending Urine Cytology- Pending documented in this encounterUniversity Hospitals Health System10-06-2023 History of Present illness Narrative* Wood Fitzgerald PA-C - 06/18/2023 9:21 AM EDT Images from the original note were not included. [facility] ESTABLISHED PATIENT CLINIC NOTE Some elements copied from his previous note, which have been updated where appropriate, and all reflect current medical decision making from date of this visit. SERVICE DATE: 06/18/2023 SERVICE TIME: 9:22 AM NAME: Tracy Gorman CHIEF COMPLAINT: Hematuria HISTORY OF PRESENT ILLNESS: Tracy Gorman is a 72 year old male an established patient following up for Hematuria The patient reports was seen in [facility] after 3 weeks of gross hematuria and not being able to clear clots out of there bladder and in Cipro Was given and culture sent, ended JOEY and now following up , he has had his last Hematuria work-up in 2018 And now needs a new on We discussed the need for full hematuria workup due to the Gross Blood in the urine. These tests and procedures will be ordered today. Clots - reminded him to keep well hydrated He will continue to follow with Nephrology for Proteinuria LUTS: GROSS HEMATURIA: yes Other symptoms: LABS: Hematocrit (%) Date Value 01/20/2023 47.9 06/02/2022 47.9 03/05/2022 49.5 01/20/2022 52.1 07/30/2021 48.1 01/27/2021 49.5 08/16/2020 52.2 07/18/2020 51.9 PSA (ng/mL) Date Value 07/30/2021 0.8 No results found for: TESTOST PSA (ng/mL) Date Value 07/30/2021 0.8 Creatinine Date Value Ref Range Status 04/20/2023 1.30 (H) 0.73 - 1.22 mg/dL Final 01/20/2023 1.37 (H) 0.73 - 1.22 mg/dL Final 06/02/2022 1.09 0.50 - 1.40 mg/dL Final Comment: Patients receiving either N-Acetylcysteine (NAC) or Metamizole prior to venipuncture, may have falsely depressed results. 03/05/2022 1.00 0.73 - 1.22 mg/dL Final MEDICATIONS: fenofibrate nanocrystallized (TRICOR) 145 mg tablet Take 1 tablet by mouth once daily. finasteride (PROSCAR) 5 mg tablet Take 1 tablet by mouth once daily. lisinopril (ZESTRIL) 20 mg tablet Take 1 tablet by mouth once daily. metFORMIN (GLUCOPHAGE) 500 mg tablet Take 1 tablet by mouth twice daily with meals. rosuvastatin (CRESTOR) 10 mg tablet Take 1 tablet by mouth once daily. amLODIPine (NORVASC) 10 mg tablet Take 1 tablet by mouth once daily. atenolol (TENORMIN) 100 mg tablet Take 1 tablet by mouth once daily. clopidogrel (PLAVIX) 75 mg tablet Take 75 mg by mouth once daily. Cholecalciferol, Vitamin D3, (VITAMIN D) 1,000 unit cap Take 1 capsule by mouth twice daily. Multivitamin capsule Take 1 capsule by mouth once daily. Nicotine Polacrilex [address] 1 Lozenge between cheek and gum as needed (smoking). (Patient not taking: Reported on 06/18/2023) varenicline (CHANTIX) 1 mg tablet Take 0.5 tablets by mouth once daily for 3 days, THEN 0.5 tabletstwice daily for 4 days, THEN 1 tablet twice daily for 23 days. varenicline (CHANTIX) 1 mg tablet Take 1 tablet by mouth twice daily. PAST MEDICAL HISTORY: PAST MEDICAL HISTORY Diagnosis Date Abdominal aortic aneurysm (AAA) without rupture (HCC) CT flank 01/21/21 Basal cell carcinoma (BCC) of skin of left ear 01/2022 Benign prostatic hyperplasia without lower urinary tract symptoms Chronic kidney disease (CKD), stage III (moderate) (HCC) CML (chronic myeloid leukemia) (HCC) Dr. Cárdenas Hemorrhoid HTN (hypertension) Hyperlipidemia Leukocytosis MPN (myeloproliferative neoplasm) (HCC) PAD (peripheral artery disease) (HCC) Dr. Pitts Prediabetes Tobacco use disorder Vitamin D insufficiency PAST SURGICAL HISTORY: PAST SURGICAL HISTORY Procedure Laterality Date ANGIOPLASTY Right 2019 right leg for claudication and toe discoloration [place] [facility] [place] [facility] . COLONOSCOPY 2016 HEMORRHOID SURGERY HX PAST SURGICAL HISTORY OF Left 03/2022 Mohs for BCC behind left ear FAMILY HISTORY: FAMILY HISTORY Problem Relation Age of Onset Cancer Mother 80 Lung Cancer Hypertension Mother Lipids Mother Lipids Father Prostate Cancer Brother SOCIAL HISTORY: Social Connections: Unknown (08/03/2022) Social Connection and Isolation Panel [NHANES] Frequency of Communication with Friends and Family: Three times a week Frequency of Social Gatherings with Friends and Family: More than three times a week Attends Yazidi Services: Patient refused Active Member of Clubs or Organizations: No Attends Club or Organization Meetings: Never Marital Status: REVIEW OF SYSTEMS: GENERAL: No fever, chills, weight loss, or fatigue. All other systems reviewed and are negative PHYSICAL EXAMINATION: There were no vitals taken for this visit. GENERAL: WNL nutrition, no deformities, healthy appearing PROBLEM LIST REVIEW: Yes LABS: Results for orders placed or performed in visit on 06/18/23 UA DIP, URINE (POC) Result Value Ref Range GLUCOSE UA (POCT) 250 (A) Negative mg/dL BILIRUBIN UA (POCT) Large (A) Negative KETONE UA (POCT) 15 (A) Negative mg/dL SPECIFIC GRAVITY UA (POCT) 1.020 1.005 - 1.030 HEMOGLOBIN/BLOOD UA (POCT) Large (A) Negative PH UA (POCT) 5.0 4.5 - 8.0 PROTEIN UA (POCT) >=300 (A) Negative mg/dL UROBILINOGEN UA (POCT) 2.0 (A) Normal E.U./dL NITRITE UA (POCT) Positive (A) Negative LEUKOCYTES UA (POCT) Large (A) Negative COLOR UA (POCT) Red CLARITY UA (POCT) Cloudy Urine Culture - Pending Urine Cytology - Pending PROCEDURES: PVR: 43 ml IMAGING: CT Urogram -- Pending IMPRESSION/PLAN: 72 year old male with 1. Benign prostatic hyperplasia with lower urinary tract symptoms, symptom details unspecified - ICD9: 600.01, ICD10: N40.1 (primary diagnosis) 2. Gross hematuria - ICD9: 599.71, ICD10: R31.0 3. CML (chronic myeloid leukemia) (HCC) - ICD9: 205.10, ICD10: C92.10 4. Screening for genitourinary condition - ICD9: V81.6, ICD10: Z13.89 CT Urogram to be scheduled at [facility] Cystoscopy to scheduled at [facility]-will contact patient # [phone] Urine Culture -Pending Urine Cytology- Pending LESLY Swanson, DURAN ABDI documented in this encounterUniversity Hospitals Health System10-06-2023 Nurse Note* Tracy Robin LPN - 06/18/2023 9:21 AM EDT Post Void Residual done on patient with 43 cc residual volume remaining. notified. Tracy Robin LPN documented in this encounterUniversity Hospitals Health System09-19-2023 Miscellaneous Notes* Telephone Encounter - Keeley Cates Ma - 06/01/2023 3:38 PM EDT Patient was left vm that he can schedule flu shot in 2-3 weeks due to covid should be in. Aware if not it can get high dose and than check back on covid or reach out to local pharmacy Keeley Cates Ma documented in this encounterUniversity Hospitals Health System08-10-2023 Miscellaneous Notes* Telephone Encounter - Rebecca Biggs LPN - 04/22/2023 11:38 AM EDT Patient updated with additional message and referral, OV notes, labs and demographics page forwarded to Dr Ortiz's office. * Addendum Note - Lambert Gomez MD - 04/22/2023 9:29 AM EDTAddended by: LAMBERT GOMEZ on: 04/22/2023 09:29 AM Modules accepted: Orders * Telephone Encounter - Lambert Gomez MD - 04/22/2023 9:28 AM EDT Referral order placed. Please fax to Dr. Ortiz's office. Patient to call for appointment. Recommend low sodium diet <2,000 mg per day, avoidance of NSAIDs, increased PO fluids. * Telephone Encounter - Rebecca Biggs LPN - 04/22/2023 9:21 AM EDT Phoned patient and reviewed message with him. He reports he contacted Dr Ortiz's office a couple of times to make an appointment but they never returned his calls. He stated he will go if we place the referral to her office again pending they contact him. * Telephone Encounter - Rebecca Biggs LPN - 04/22/2023 9:20 AM EDT ----- Message from Lambert Gomez MD sent at 04/21/2023 4:12 PM EDT ----- Kidney function remains diminished in CKD stage III range. He has been referred to nephrology Dr. Ortiz's office in the past for blood and protein in urine. Is he following up with her office now? If not, will place referral again. documented in this encounterUniversity Hospitals Health System08-10-2023 Evaluation note* Diagnosis Stage 3a chronic kidney disease (HCC)- Primary documented in this encounter [facility]05-12-2023 History of Present illness Narrative* Lambert Gomez MD - 01/22/2023 8:23 AM EDT Chief Complaint Patient presents with: Follow Up: 6 month- Medication refills needed. HPI Tracy Gorman is a 72 year old male who presents here today for Above Complaints. Has been in good health without hospitalizations or ER visits. No falls. Noted GABRIELA on recent labs. Admits to eating more salt than he should and does not drink enough water. Denies NSAID use, urinary symptoms. HTN: Mr. Gorman indicates that he is feeling well and denies any symptoms referable to elevated blood pressure. Specifically denies headache, chest pain, palpitations, dyspnea, and peripheral edema. Patient denies any side effects of his medication(s) and is compliant with their regimen. He does check BP's away from this office with average BP's in the 130's/80's range. Tracy likes to exerciseby working in the yard. He watches his diet for sodium, low fat and low cholesterol generally not very much. Last 3 Encounter BP Readings: Date: BP: 01/22/2023 128/84 08/27/2022 122/62 08/10/2022 129/86[JAKE BP[ PAD: Has follow up appointment with vascular in about a week to f/u on US. Denies cold extremities,claudication, cyanosis. Prediabetes improving. Denies DM symptoms. Smoking 5-6 cigarettes per day. Refusing help with cessation. Has lung cancer screening in April set up. Past medical history, appointments, medications, allergies reviewed. Previous Medical History PAST MEDICAL HISTORY Diagnosis Date Abdominal aortic aneurysm (AAA) without rupture CT flank 01/21/21 Basal cell carcinoma (BCC) of skin of left ear 01/2022 Benign prostatic hyperplasia without lower urinary tract symptoms CML (chronic myeloid leukemia) (HCC) Dr. Cárdenas Hemorrhoid HTN (hypertension) Hyperlipidemia Leukocytosis MPN (myeloproliferative neoplasm) (HCC) PAD (peripheral artery disease) (HCC) Dr. Ptits Prediabetes Vitamin D insufficiency Previous Surgical History PAST SURGICAL HISTORY Procedure Laterality Date ANGIOPLASTY Right 2019 right leg for claudication and toe discoloration [place] M[place]OW [place]CTION [place] [facility] [place] [facility]COPY [facility] . COLONOSCOPY 2015 HEMORRHOID SURGERY HX PAST SURGICAL HISTORY OF Left 03/2022 Mohs for BCC behind left ear Family History FAMILY HISTORY Problem Relation Age of Onset Cancer Mother 80 Lung Cancer Hypertension Mother Lipids Mother Lipids Father Prostate Cancer Brother Patient Allergies ALLERGIES No Known Allergies Current Medications Current Outpatient Medications on File Prior to Visit Medication Sig Nicotine Polacrilex [address] 1 Lozenge between cheek and gum as needed (smoking). finasteride (PROSCAR) 5 mg tablet Take 1 tablet by mouth once daily. rosuvastatin (CRESTOR) 10 mg tablet Take 1 tablet by mouth once daily. metFORMIN (GLUCOPHAGE) 500 mg tablet Take 1 tablet by mouth twice daily with meals. fenofibrate nanocrystallized (TRICOR) 145 mg tablet Take 1 tablet by mouth once daily. amLODIPine (NORVASC) 10 mg tablet Take 1 tablet by mouth once daily. atenolol (TENORMIN) 100 mg tablet Take 1 tablet by mouth once daily. varenicline (CHANTIX) 1 mg tablet Take 0.5 tablets by mouth once daily for 3 days, THEN 0.5 tabletstwice daily for 4 days, THEN 1 tablet twice daily for 23 days. varenicline (CHANTIX) 1 mg tablet Take 1 tablet by mouth twice daily. lisinopril (ZESTRIL, PRINIVIL) 20 mg tablet Take 1 tablet by mouth once daily. clopidogrel (PLAVIX) 75 mg tablet Take 75 mg by mouth once daily. Cholecalciferol, Vitamin D3, (VITAMIN D) 1,000 unit cap Take 1 capsule by mouth twice daily. Multivitamin capsule Take 1 capsule by mouth once daily. No current facility-administered medications on file prior to visit. Social History Social History Tobacco Use Smoking status: Every Day Packs/day: 1.00 Years: 50.00 Pack years: 50.00 Types: Cigarettes Smokeless tobacco: Never Tobacco comments: Less than 1/2ppd, does not finish the cigarette 08/27/22 Vaping Use Vaping Use: Never used Substance Use Topics Alcohol use: No Drug use: No Review of Symptoms REVIEW OF SYSTEMS GENERAL: No weight loss, malaise or fevers RESPIRATORY: Negative for cough, hemoptysis, wheezing, COPD, dyspnea or shortness of breath CARDIOVASCULAR: Negative for chest pain, leg swelling, hypertension, CHF or palpitations GI: No nausea, vomiting, or diarrhea : No history of dysuria, frequency or incontinence, No difficulty urinating, nocturia > 1 timeper night or hematuria SKIN: Negative for lesions, rash, and itching EXAM: BP 128/84 Pulse 62 Resp 18 Wt 85 kg (187 lb 6.4 oz) SpO2 97% BMI 24.72 kg/m General Appearance: Well appearing, alert, in no acute distress, well-hydrated, well nourished.. Skin: Skin color, texture, turgor normal, no suspicious rashes or lesions. Lungs: Lungs clear to auscultation. No wheezing, rhonchi, rales.. Heart: RRR without murmur, gallop, or rubs. No ectopy. Abdomen: Normal abdominal exam, Abdomen soft, non-tender. Bowel sounds normal. No masses, organomegaly. Extremities: No deformities, edema, skin discoloration, clubbing or cyanosis. Good capillary refill. . Health Maintenance List ADVANCE DIRECTIVE DISCUSSION Never done DEPRESSION ASSESSMENT Never done LUNG CANCER SCREENING due on 04/28/2023 ANNUAL PCP TEAM CHRONIC DISEASE VISIT due on 08/10/2023 BP CONTROLLED (<130/80) due on 08/27/2023 DIABETES SCREEN due on 01/20/2026 COLORECTAL CANCER SCREENING due on 01/26/2026 LIPID SCREEN due on 07/21/2027 DTAP,TDAP,TD(6 - Td or Tdap) due on 09/21/2028 ABDOMINAL AORTIC ANEURYSM SCREENING Completed INFLUENZA Completed HEPATITIS C SCREENING Completed SHINGRIX VACCINE Completed COVID-19 VACCINE Completed PNEUMOCOCCAL: 65+ Completed Data reviewed Component Latest Ref Rng & Units 06/02/2022 07/21/2022 01/20/2023 WBC 3.70 - 11.00 k/uL 7.49 8.80 RBC 4.20 - 6.00 m/uL 5.29 5.24 Hemoglobin 13.0 - 17.0 g/dL 15.5 15.7 Hematocrit 39.0 - 51.0 % 47.9 47.9 MCV 80.0 - 100.0 fL 90.5 91.4 MCH 26.0 - 34.0 pg 29.3 30.0 MCHC 30.5 - 36.0 g/dL 32.4 32.8 RDW-CV 11.5 - 15.0 % 13.7 14.6 Platelet Count 150 - 400 k/uL 178 163 MPV 9.0 - 12.7 fL 8.7 (L) 9.0 Neut% % 57.1 64.8 Abs Neut (ANC) 1.45 - 7.50 k/uL 4.28 5.70 Lymph% % 31.9 25.5 Abs Lymph 1.00 - 4.00 k/uL 2.39 2.24 [place]% % 7.9 7.7 Abs [place] <0.87 k/uL 0.59 0.68 Eosin% % 2.0 1.5 Abs Eosin <0.46 k/uL 0.15 0.13 Baso% % 0.7 0.3 Abs Baso <0.11 k/uL 0.05 0.03 Immature Gran % % 0.4 0.2 IMMATURE GRANS (ABS) <0.10 k/uL 0.03 <0.03 NRBC /100 WBC 0.0 0.0 Absolute nRBC <0.01 k/uL <0.01 <0.01 DTYPE Auto Auto Protein, Total 6.3 - 8.0 g/dL 7.0 Albumin 3.9 - 4.9 g/dL 4.7 Calcium 8.5 - 10.2 mg/dL 10.2 9.8 Bilirubin, Total 0.2 - 1.3 mg/dL 0.4 Alkaline Phosphatase 38 - 113 U/L 45 AST 14 - 40 U/L 15 ALT 10 - 54 U/L 9 (L) Glucose 74 - 99 mg/dL 114 (H) 131 (H) BUN 9 - 24 mg/dL 23 36 (H) Creatinine 0.73 - 1.22 mg/dL 1.09 1.37 (H) Sodium 136 - 144 mmol/L 144 141 Potassium 3.7 - 5.1 mmol/L 3.8 4.4 Chloride 97 - 105 mmol/L 108 (H) 106 (H) CO2 22 - 30 mmol/L 26 28 Anion Gap 9 - 18 mmol/L 10 7 (L) eGFR >=60 mL/min/1.73m 73 55 (L) Cholesterol, Total <200 mg/dL 129 Triglyceride <150 mg/dL 244 (H) HDL Cholesterol >39 mg/dL 27 (L) Non HDL Cholesterol <130 mg/dL 102 Fasting Time hrs 12 VLDL Cholesterol <30 mg/dL 49 (H) TC:HDL Ratio <5.10 4.78 LDL Cholesterol <100 mg/dL 53 LDL:HDL Ratio <2.54 1.96 Hemoglobin A1C 4.3 - 5.6 % 5.8 (H) 5.7 (H) Estimated Average Glucose mg/dL 120 117 LDL Cholesterol, Direct <100 mg/dL 56 ASSESSMENT/PLAN: 1. GABRIELA (acute kidney injury) (HCC) - ICD9: 584.9, ICD10: N17.9 (primary diagnosis) Recommend low sodium diet, avoidance of NSAIDs, push PO fluids. Recheck in 1 month. - COMP METABOLIC PANEL 2. Primary hypertension - ICD9: 401.9, ICD10: I10 - good control - Continue current medication(s) - Encouraged dietary sodium restriction/DASH diet - Recommended regular aerobic exercise. - Reviewed risks of HTN and principles of treatment - Goal of BP <140/90 - LISINOPRIL 20 MG TABLET - ATENOLOL 100 MG TABLET 3. Mixed hyperlipidemia - ICD9: 272.2, ICD10: E78.2 - good control - Continue current medication. - Encouraged following a low fat, low cholesterol diet. - Discussed the benefits of regular aerobic exercise and weight loss. - FENOFIBRATE NANOCRYSTALLIZED 145 MG TABLET - ROSUVASTATIN 10 MG TABLET 4. PAD (peripheral artery disease) (HCC) - ICD9: 443.9, ICD10: I73.9 F/u with vascular as scheduled. Recommended smoking cessation. 5. Benign prostatic hyperplasia without lower urinary tract symptoms - ICD9: 600.00, ICD10: N40.0 Improved on finasteride. - FINASTERIDE 5 MG TABLET 6. Prediabetes - ICD9: 790.29, ICD10: R73.03 Stable. Continue metformin and work on low carb diet. - METFORMIN 500 MG TABLET 7. CML (chronic myeloid leukemia) (HCC) - ICD9: 205.10, ICD10: C92.10 Recommendations per oncology. 8. S/P allogeneic bone marrow transplant (HCC) - ICD9: V42.81, ICD10: Z94.81 Recommendations per oncology. - AMLODIPINE 10 MG TABLET 9. Immunodeficiency (HCC) - ICD9: 279.3, ICD10: D84.9 Recommendations per oncology. - AMLODIPINE 10 MG TABLET Lambert Gomez MD documented in this encounterUniversity Hospitals Health System05-05-2023 Miscellaneous Notes* Telephone Encounter - Madie Costello LPN - 01/15/2023 12:06 PM EDT Called and spoke with patients . Will give message to patient. Voices understanding. Madie Costello LPN * Telephone Encounter - Lambert Gomez MD - 01/15/2023 10:26 AM EDT Labs ordered. * Telephone Encounter - Gissell Peacock LPN - 01/15/2023 9:52 AM EDT Pt calls states he has appt coming up 01/22/23 next Wednesday he is asking for labs to be placed so hecan get these prior to appt. documented in this encounterUniversity Hospitals Health System12-15-2022 History of Present illness Narrative* Leia Shaw PA-C - 08/27/2022 1:33 PM EST Images from the original note were not included. [facility] SMOKING CESSATION PROGRAM FOLLOW UP VISIT August 27, 2022 HPI: Tracy Gorman is a 71 year old male who presents to the office today for a follow up visit for smoking cessation. Patient's initial visit was on 07/30/2022. Patient was prescribed Varenicline and Nicotine lozenges for smoking cessation during last visit. Patient reports side effects No. Quit? No. If no, current tobacco use 6-10 cigarettes / day and only smokes half of it which is cut down from previous visit. How many cigarettes do you smoke? 0: 10 or fewer 1: 11-20 2: 21-30 3: >=31 How soon after waking up do you smoke your first cigarette of the day? 0: after 60 minutes 1: 31-60 minutes 2: 6-30 minutes 3: within 5 minutes Level of nicotine dependence is computed by adding the scores together as follows: 0-2 = low nicotine dependence 3-4 = moderate nicotine dependence 5-6 = high nicotine dependence Heaviness of Smoking Index: low TRIGGERS: Stress and boredom smokes in her bathroom. Patient smokes outside in garage. PMH: PAST MEDICAL HISTORY Diagnosis Date Abdominal aortic aneurysm (AAA) without rupture CT flank 01/21/21 Basal cell carcinoma (BCC) of skin of left ear 01/2022 Benign prostatic hyperplasia without lower urinary tract symptoms CML (chronic myeloid leukemia) (HCC) Dr. Cárdenas Hemorrhoid HTN (hypertension) Hyperlipidemia Leukocytosis MPN (myeloproliferative neoplasm) (HCC) PAD (peripheral artery disease) (HCC) Dr. Pitts Prediabetes Vitamin D insufficiency PAST SURGICAL HX: PAST SURGICAL HISTORY Procedure Laterality Date ANGIOPLASTY Right 2019 right leg for claudication and toe discoloration [place] [facility] [place] [facility] . COLONOSCOPY 2016 HEMORRHOID SURGERY HX PAST SURGICAL HISTORY OF Left 03/2022 Mohs for BCC behind left ear MEDICATIONS: varenicline (CHANTIX) 1 mg tablet Take 1 tablet by mouth twice daily. Nicotine Polacrilex [address] 1 Lozenge between cheek and gum as needed (smoking). finasteride (PROSCAR) 5 mg tablet Take 1 tablet by mouth once daily. rosuvastatin (CRESTOR) 10 mg tablet Take 1 tablet by mouth once daily. metFORMIN (GLUCOPHAGE) 500 mg tablet Take 1 tablet by mouth twice daily with meals. fenofibrate nanocrystallized (TRICOR) 145 mg tablet Take 1 tablet by mouth once daily. amLODIPine (NORVASC) 10 mg tablet Take 1 tablet by mouth once daily. atenolol (TENORMIN) 100 mg tablet Take 1 tablet by mouth once daily. varenicline (CHANTIX) 1 mg tablet Take 0.5 tablets by mouth once daily for 3 days, THEN 0.5 tabletstwice daily for 4 days, THEN 1 tablet twice daily for 23 days. lisinopril (ZESTRIL, PRINIVIL) 20 mg tablet Take 1 tablet by mouth once daily. clopidogrel (PLAVIX) 75 mg tablet Take 75 mg by mouth once daily. Cholecalciferol, Vitamin D3, (VITAMIN D) 1,000 unit cap Take 1 capsule by mouth twice daily. Multivitamin capsule Take 1 capsule by mouth once daily. ALLERGIES: Allergies: No Known Allergies FAM HX: FAMILY HISTORY Problem Relation Age of Onset Cancer Mother 80 Lung Cancer Hypertension Mother Lipids Mother Lipids Father Prostate Cancer Brother SOCIAL HX: Social History Tobacco Use Smoking status: Every Day Packs/day: 1.00 Years: 50.00 Pack years: 50.00 Types: Cigarettes Smokeless tobacco: Never Tobacco comments: Less than 1/2ppd, does not finish the cigarette 08/27/22 Vaping Use Vaping Use: Never used Substance Use Topics Alcohol use: No Drug use: No PHYSICAL EXAM: BP 122/62 Pulse 79 Resp 19 Wt 190 lb (86.2kg) SpO2 97% Gen: No acute distress. Cooperative with examination. ENT: Oral hygeine and dentition good. Resp: No stridor, accessory respiratory muscle use, supra-sternal or intercostal retractions. No wheezes, crackles. CV: Regular rythm. Heart tones normal. Radial pulses normal. Abd: Non distended. MSK: No kyphoscoliosis. Ext: Warm and well perfused. No clubbing, cyanosis, edema. Skin: No rash, ecchymoses. Neuro: Mental status normal. Affect normal. No tremor. DATA: No new data IMPRESSION/PLAN: TOBACCO USE DISORDER/NICOTINE DEPENDENCE - Severity of nicotine dependence: Low - Smoking cessation methods including Nicotine Replacement Therapies, Varenicline, and Behavior Modification were discussed with the patient and assistance offered. The patient is currently ready to quit. I personally spent 8 minutes in counseling. - QUIT DATE: Yes. Ready to quit? Yes, Date: 09/12/2022 - Treatment plan: Nicotine Lozenge and Varenicline (Chantix) Follow Up: in 6 weeks. Leia Shaw PA-C CC No referring provider defined for this encounter. and Lambert Gomez MD via [employer] documented in this encounterUniversity Hospitals Health System11-28-2022 History of Present illness Narrative* Cleopatra Greenwood, GLASS SILVERER.LINEN ROOM SUPERVISOR - 08/10/2022 9:46 AM EST 08/10/2022 Patient presents with: Blood Pressure: Recheck SUBJECTIVE: This is a 71 year old that is here today for Above Complaints. BP elevated at last office appointment. Placed on lisinopril. Taking and tolerating without side effects. Has been checking BP at home twice a day with most readings of 120/70's. Denies headaches, vision changes, slurred speech, facial drooping, extremity numbness, tingling or weakness. PAST MEDICAL HISTORY Diagnosis Date Abdominal aortic aneurysm (AAA) without rupture CT flank 01/21/21 Basal cell carcinoma (BCC) of skin of left ear 01/2022 Benign prostatic hyperplasia without lower urinary tract symptoms CML (chronic myeloid leukemia) ([facility]) Dr. Cárdenas Hemorrhoid HTN (hypertension) Hyperlipidemia Leukocytosis MPN (myeloproliferative neoplasm) ([facility]) PAD (peripheral artery disease) ([facility]) Dr. Pitts Prediabetes Vitamin D insufficiency ALLERGIES Patient has no known allergies. MEDICATIONS Current Outpatient Medications Medication Sig Nicotine Polacrilex [address] 1 Lozenge between cheek and gum as needed (smoking). finasteride (PROSCAR) 5 mg tablet Take 1 tablet by mouth once daily. rosuvastatin (CRESTOR) 10 mg tablet Take 1 tablet by mouth once daily. metFORMIN (GLUCOPHAGE) 500 mg tablet Take 1 tablet by mouth twice daily with meals. fenofibrate nanocrystallized (TRICOR) 145 mg tablet Take 1 tablet by mouth once daily. amLODIPine (NORVASC) 10 mg tablet Take 1 tablet by mouth once daily. atenolol (TENORMIN) 100 mg tablet Take 1 tablet by mouth once daily. varenicline (CHANTIX) 1 mg tablet Take 0.5 tablets by mouth once daily for 3 days, THEN 0.5 tabletstwice daily for 4 days, THEN 1 tablet twice daily for 23 days. [START ON 08/23/2022] varenicline (CHANTIX) 1 mg tablet Take 1 tablet by mouth twice daily. lisinopril (ZESTRIL, PRINIVIL) 20 mg tablet Take 1 tablet by mouth once daily. clopidogrel (PLAVIX) 75 mg tablet Take 75 mg by mouth once daily. Cholecalciferol, Vitamin D3, (VITAMIN D) 1,000 unit cap Take 1 capsule by mouth twice daily. Multivitamin capsule Take 1 capsule by mouth once daily. No current facility-administered medications for this visit. Medications and allergies reviewed by this provider. SOCIAL HISTORY Social History Tobacco Use Smoking status: Every Day Packs/day: 1.00 Years: 50.00 Pack years: 50.00 Types: Cigarettes Smokeless tobacco: Never Tobacco comments: Currently at 1/2ppd 07/30/22 Vaping Use Vaping Use: Never used Substance Use Topics Alcohol use: No Drug use: No REVIEW OF SYSTEMS All other reviewed and negative other than HPI. OBJECTIVE: BP 129/86 Pulse (!) 57 Resp 18 Wt 86.9 kg (191 lb 9.6 oz) SpO2 97% BMI 25.28 kg/m . Vitalsigns reviewed by this provider. APPEARANCE Well appearing, alert, in no acute distress, well-hydrated, well nourished. BP CONTROLLED (<130/80) Never done ADVANCE DIRECTIVE DISCUSSION Never done DEPRESSION ASSESSMENT Never done LUNG CANCER SCREENING due on 04/28/2023 ANNUAL PCP TEAM CHRONIC DISEASE VISIT due on 08/10/2023 DIABETES SCREEN due on 07/21/2025 COLORECTAL CANCER SCREENING due on 01/26/2026 LIPID SCREEN due on 07/21/2027 DTAP,TDAP,TD(6 - Td or Tdap) due on 09/21/2028 ABDOMINAL AORTIC ANEURYSM SCREENING Completed INFLUENZA Completed HEPATITIS C SCREENING Completed SHINGRIX VACCINE Completed COVID-19 VACCINE Completed PNEUMOCOCCAL: 65+ Completed ASSESSMENT/PLAN: 1. Hypertension, essential - ICD9: 401.9, ICD10: I10 - good control - Continue current medication(s) - Encouraged dietary sodium restriction/DASH diet - Recommended regular aerobic exercise. - Recommend home blood pressure monitoring, to bring results in on next visit - Recheck in 6 months, sooner should new symptoms or problems arise. - Goal of BP <140/90 - Recommend home or pharmacy blood pressure monitoring - Recommended no refined sugar, low refined starch, healthy oil intake (olive oil), healthy protein(fish) along the lines of the Mediterranean diet. Cleopatra Greenwood APRN.JOAO Prescription instructions reviewed with patient as applicable. Patient advised if symptoms do not improve or if symptoms worsen sooner, to contact their primary care physician. Potential red flag symptoms discussed with the patient. Reviewed appropriate action plan to take if red flag symptoms occur. Patient agreeable to treatment plan. I spent a total of 20 minutes on the date of the service which included preparing to see the patient, [id number] patient care, completing clinical documentation, obtaining and/or reviewing separately obtained history, performing a medically appropriate examination, and counseling and educating the patient/family/caregiver. documented in this encounterUniversity Hospitals Health System11-11-2022 Miscellaneous Notes* Telephone Encounter - Madie Costello LPN - 07/24/2022 3:04 PM EST All paperwork faxed to Dr. Chang office. Patient telephoned and made aware. aMdie Costello LPN * Telephone Encounter - Radha Dawkins RN - 07/24/2022 10:01 AM EST Patient calls and states that he would like to see Dr. Ortiz in [place] for nephrology. Patient requesting referral, office notes, labs, and demographics to be faxed there so that he can set up appointment with her. Please review and advise, Radha Dawkins RN documented in this encounterUniversity Hospitals Health System11-02-2022 Miscellaneous Notes* Telephone Encounter - Rosio Bergman Ma - 07/15/2022 10:38 AM EDT [employer] message sent to pt notifying him of fasting labs being ordered and to complete prior to visit. Lab hours given. Rosio Bergman Ma * Telephone Encounter - Cleopatra Greenwood APRN.CNP - 07/15/2022 10:23 AM EDT Lab orders placed. Please let patient know he should fast 10-12 hours prior. Cleopatra Gerenwood APRN.CNP * Telephone Encounter - Radha Dawkins RN - 07/15/2022 10:16 AM EDT Patient calls and states that he has an appointment with provider on 07/24/2022. Patient asking about labs orders. Please review and advise, Radha Dawkins RN documented in this encounterUniversity Hospitals Health System09-20-2022 NoteHNO ID: [id number] Author: Iesha Kerr RN Service: Vascular Surgery Author Type: Registered Nurse Type: Nursing Progress Note Filed: 06/02/2022 10:23 AM Note Text: Other: Bilateral foot and ankle pulses checked by Gabriela Coe RN. Present.[facility]06-09-2022 Miscellaneous Notes* Telephone Encounter - Tosha Ray APRN.CNP - 02/19/2022 3:26 PM EDT Attempted to call patient to discuss rescheduling appt for next week as the provider will not be inthe office. Left a message for him to call back Tosha Ray APRN.CNP documented in this encounterUniversity Hospitals Health System06-06-2022 Miscellaneous Notes* Telephone Encounter - Cyndee Hobson - 02/16/2022 2:01 PM EDT Pt notified via for[MD]. Cyndee Hobson * Telephone Encounter - Candy Eagle LPN - 02/16/2022 9:54 AM EDT Called patient, no answer. Left message. Candy Eagle LPN * Telephone Encounter - Candy Eagle LPN - 02/16/2022 9:52 AM EDT ----- Message from Wood Fitzgerald PA-C sent at 02/16/2022 9:38 AM EDT ----- No infection in the urine LESLY Swanson, RIDURAN documented in this encounterUniversity Hospitals Health System05-11-2022 Miscellaneous Notes* Telephone Encounter - Keeley Cates Ma - 01/21/2022 4:44 PM EDT Patient was notified Keeley Cates Ma * Telephone Encounter - Lambert Gomez MD - 01/21/2022 4:16 PM EDT A1C remains in prediabetic range. Down from 6.1 to 5.9. recommend low carb diet as discussed. Recheck in 6 months. Kidney function is down compared to last check. Recommend low sodium diet, avoidance of NSAIDs, push PO fluids. Will recheck in 1-2 weeks with UA to look into this further. Other labs unremarkable. documented in this encounterUniversity Hospitals Health System05-10-2022 History of Present illness Narrative* Lambert Gomez MD - 01/20/2022 4:01 PM EDT Chief Complaint Patient presents with: F/U 6 months Refill Request HPI Tracy Gorman is a 71 year old male who presents here today for 6 month follow up. Prediabetes: patient states that he has been trying to cut back on pop and sweets and has lost about 10 lbs in the last 3 months. Due for recheck A1c. BP well controlled on current regimen. No recurrent hematuria in the last 6 months. Did follow up with urology who stated workup was negative and wanted him to follow up in 1 year. BPH well controlled on finasteride. Has sore behind his left ear x 6 months. States that it does get a scab which he removes and then bleeds. Attributes to mask and wearing glasses. Overdue for follow up with heme/onc for history of CML, off immunosuppression since 05/31. Patient was to have 2 year survivorship visit February 2021. Recommended he continue his acyclovir until he got his shingrix vaccine. Shingrix vaccine completed in October. Past medical history, appointments, medications, allergies reviewed. Previous Medical History PAST MEDICAL HISTORY Diagnosis Date Abdominal aortic aneurysm (AAA) without rupture (HCC) CT flank 01/21/21 CML (chronic myeloid leukemia) (HCC) Dr. Cárdenas Hemorrhoid HTN (hypertension) Hyperlipidemia Leukocytosis MPN (myeloproliferative neoplasm) (HCC) PAD (peripheral artery disease) (HCC) Dr. Pitts Prediabetes Vitamin D insufficiency Previous Surgical History PAST SURGICAL HISTORY Procedure Laterality Date ANGIOPLASTY Right 2019 right leg for claudication and toe discoloration COLONOSCOPY [facility] . COLONOSCOPY 2016 HEMORRHOID SURGERY HX Family History FAMILY HISTORY Problem Relation Age of Onset Cancer Mother 80 Lung Cancer Hypertension Mother Lipids Mother Lipids Father Prostate Cancer Brother Patient Allergies ALLERGIES No Known Allergies Current Medications Current Outpatient Medications on File Prior to Visit Medication Sig metFORMIN (GLUCOPHAGE) 500 mg tablet Take 1 tablet by mouth twice daily with meals. fenofibrate nanocrystallized (TRICOR) 145 mg tablet Take 1 tablet by mouth once daily. amLODIPine (NORVASC) 10 mg tablet Take 1 tablet by mouth once daily. atenolol (TENORMIN) 100 mg tablet Take 1 tablet by mouth once daily. finasteride (PROSCAR) 5 mg tablet Take 1 tablet by mouth once daily. rosuvastatin (CRESTOR) 10 mg tablet TAKE 1 TABLET BY MOUTH EVERYDAY AT BEDTIME clopidogrel (PLAVIX) 75 mg tablet Take 75 mg by mouth once daily. Cholecalciferol, Vitamin D3, (VITAMIN D) 1,000 unit cap Take 1 capsule by mouth twice daily. Multivitamin capsule Take 1 capsule by mouth once daily. buPROPion SR (WELLBUTRIN SR) 150 mg 12 hr tablet Take 1 tablet by mouth twice daily. (Patient not taking: Reported on 01/20/2022 ) No current facility-administered medications on file prior to visit. Social History Social History Tobacco Use Smoking status: Current Every Day Smoker Packs/day: 0.50 Years: 49.00 Pack years: 24.50 Types: Cigarettes Last attempt to quit: 07/14/2018 Years since quittin.5 Smokeless tobacco: Never Used Substance Use Topics Alcohol use: No Drug use: No Review of Symptoms REVIEW OF SYSTEMS GENERAL: No weight loss, malaise or fevers RESPIRATORY: Negative for cough, hemoptysis, wheezing, COPD, dyspnea or shortness of breath CARDIOVASCULAR: Negative for chest pain, leg swelling, hypertension, CHF or palpitations GI: No nausea, vomiting, or diarrhea SKIN: See HPI EXAM: BP 132/84 Pulse 64 Resp 16 Wt 87.4 kg (192 lb 9.6 oz) SpO2 96% BMI 25.76 kg/m General Appearance: Well appearing, alert, in no acute distress, well-hydrated, well nourished.. Skin: 1 x 0.5 cm raised skin colored nodule behind left ear with 2 areas of scabbing. Suspect BCC. Lungs: Lungs clear to auscultation. No wheezing, rhonchi, rales.. Heart: RRR without murmur, gallop, or rubs. No ectopy. Abdomen: Normal abdominal exam, Abdomen soft, non-tender. Bowel sounds normal. No masses, organomegaly. Extremities: No deformities, edema, skin discoloration, clubbing or cyanosis. Good capillary refill. . Health Maintenance List BP CONTROLLED (<130/80) Never done ADVANCE DIRECTIVE DISCUSSION Never done DEPRESSION SCREENING due on 01/24/2022 COVID-19 VACCINE(5 - Booster for Moderna series) due on 04/02/2022 LUNG CANCER SCREENING due on 04/23/2022 ANNUAL PCP TEAM CHRONIC DISEASE VISIT due on 07/30/2022 DIABETES SCREEN due on 11/03/2024 COLORECTAL CANCER SCREENING due on 01/26/2026 LIPID SCREEN due on 11/03/2026 DTAP,TDAP,TD(6 - Td or Tdap) due on 09/21/2028 ABDOMINAL AORTIC ANEURYSM SCREENING Completed INFLUENZA Completed HEPATITIS C SCREENING Completed PNEUMOVAX AGE 65 AND OVER WITH 5YR LOOKBACK Completed SHINGRIX VACCINE Completed MENINGOCOCCAL CONJUGATE Aged Out Data reviewed Component Latest Ref Rng & Units 07/30/2021 11/03/2021 WBC 3.70 - 11.00 k/uL 8.07 RBC 4.20 - 6.00 m/uL 5.22 Hemoglobin 13.0 - 17.0 g/dL 15.8 Hematocrit 39.0 - 51.0 % 48.1 MCV 80.0 - 100.0 fL 92.1 MCH 26.0 - 34.0 pG 30.3 MCHC 30.5 - 36.0 g/dL 32.8 RDW-CV 11.5 - 15.0 % 14.1 Platelet Count 150 - 400 k/uL 141 (L) MPV 9.0 - 12.7 fL 9.6 Neut% % 63.2 Abs Neut (ANC) 1.45 - 7.50 k/uL 5.10 Lymph% % 26.0 Abs Lymph 1.00 - 4.00 k/uL 2.10 [place]% % 8.2 Abs [place] <0.87 k/uL 0.66 Eosin% % 2.0 Abs Eosin <0.46 k/uL 0.16 Baso% % 0.6 Abs Baso <0.11 k/uL 0.05 Nucleated Reds 0 /100 WBC 0.0 Absolute nRBC <0.01 k/uL <0.01 Diff Type Auto Diff Color Yellow Light Su (A) Clarity Clear Slightly Cloudy (A) Glucose, Urine Negative mg/dL Negative Bilirubin, Urine Negative Negative Ketones, Urine Negative Negative Specific [place], Ur 1.005 - 1.030 1.025 Hemoglobin/Blood,Ur Negative 3+ (A) pH, Urine 5.0 - 8.0 5.0 Protein, Urine Negative 3+ (A) Urobilinogen Negative E.U./dL Negative Nitrites Negative Negative Leukest Negative Negative Comment SEE COMMENT Urine Eladio Comment SEE COMMENT WBC, Urine 0 - 5 /HPF 0-5 RBC, Urine 0 - 3 /HPF >25 (A) Cast 0 /LPF SEE COMMENT (A) Crystal 0 /HPF SEE COMMENT (A) Protein, Total 6.3 - 8.0 g/dL 6.8 Albumin 3.9 - 4.9 g/dL 4.3 Calcium 8.5 - 10.2 mg/dL 10.0 Bilirubin, Total 0.2 - 1.3 mg/dL 0.3 Alkaline Phosphatase 38 - 113 U/L 99 AST 14 - 40 U/L 18 Glucose 74 - 99 mg/dL 138 (H) BUN 9 - 24 mg/dL 22 Creatinine 0.73 - 1.22 mg/dL 0.84 Sodium 136 - 144 mmol/L 139 Potassium 3.7 - 5.1 mmol/L 4.3 Chloride 97 - 105 mmol/L 105 CO2 22 - 30 mmol/L 23 Anion Gap 9 - 18 mmol/L 11 ALT 10 - 54 U/L 13 eGFR- >60 eGFR-All Other Races . >60 Cholesterol, Total <200 mg/dL 132 Triglyceride <150 mg/dL 364 (H) HDL Cholesterol >39 mg/dL 25 (L) LDL Cholesterol <100 mg/dL 34 Non HDL Cholesterol <130 mg/dL 107 Fasting Time hrs 12 VLDL Cholesterol <30 mg/dL 73 (H) TC:HDL Ratio <5.10 5.28 (H) LDL:HDL Ratio <2.54 1.36 Total Cholesterol, Nonfasting <200 mg/dL 150 Triglycerides, Nonfasting <150 mg/dL 820 (H) HDL Cholesterol, Nonfasting >39 mg/dL 24 (L) LDL Cholesterol, Nonfasting <100 mg/dL Unable to calculate due to increased Triglycerides. A Direct LDL Cholesterol . . . Non HDL Cholesterol, Nonfasting <130 mg/dL 126 VLDL Cholesterol, Nonfasting <30 mg/dL Unable to calculate due to elevated Triglycerides. Total Chol/HDL Ratio, Nonfasting <5.10 mg/dL 6.25 (H) LDL/HDL Ratio, Nonfasting <2.54 mg/dL Unable to calculate due to elevated Triglycerides. Hemoglobin A1C 4.3 - 5.6 % 6.4 (H) 6.1 (H) Estimated Average Glucose mg/dL 137 128 PSA <2.6 ng/mL 0.8 ASSESSMENT/PLAN: 1. Skin lesion - ICD9: 709.9, ICD10: L98.9 (primary diagnosis) Lesion concerning for BCC. Will place urgent referral to dermatology for biopsy/excision. - CONSULT TO DERMATOLOGY 2. Prediabetes - ICD9: 790.29, ICD10: R73.03 Congratulated on 10 lb weight loss. Continue metformin and recheck A1C. F/u in 6 months. - METFORMIN 500 MG TABLET - CBC + DIFF - HGB A1C - COMP METABOLIC PANEL 3. Primary hypertension - ICD9: 401.9, ICD10: I10 - good control - Continue current medication(s) - Encouraged dietary sodium restriction/DASH diet - Recommended regular aerobic exercise. - Reviewed risks of HTN and principles of treatment - Goal of BP <140/90 4. Mixed hyperlipidemia - ICD9: 272.2, ICD10: E78.2 - good control - Continue current medication. - Encouraged following a low fat, low cholesterol diet. - FENOFIBRATE NANOCRYSTALLIZED 145 MG TABLET 5. CML (chronic myeloid leukemia) (HCC) - ICD9: 205.10, ICD10: C92.10 Overdue for follow up appointment with Heme/onc. Will place new referral and recheck CBC with diff.Instructed to call for f/u OV. - CONSULT TO HEMATOLOGY 6. S/P allogeneic bone marrow transplant (HCC) - ICD9: V42.81, ICD10: Z94.81 See above. - AMLODIPINE 10 MG TABLET 7. Immunodeficiency (HCC) - ICD9: 279.3, ICD10: D84.9 See above. 8. Benign prostatic hyperplasia without lower urinary tract symptoms - ICD9: 600.00, ICD10: N40.0 Symptoms improved on Finasteride. Keep 1 year follow up with urology. 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 Will need vanco po bid on discharge (sent for prior auth). Per d/c pharmacy: Pt does not have Rx coverage. Through our discount card, copay would be $50.25. He would have to have this filled at [facility] since its a compound. --02/04: Per Case Mgmt: Per infusion pharmacy, meropenem 1g IV q8h - self-pay cost is $66 per day. Ertapenem costs $94/day (total $1300 for full course). ID Recs: May switch to ertapenem depending on susceptibilities and pt may need copat. If switch to ertapenem, pt will need first dose in-hospital. ID anticipates discharge on Wednesday 02/07. Sepsis 02/02/2018 02/08/2018 Sepsis due to Klebsiella 02/02/2018 018 Bacteremia due to Klebsiella pneumoniae 02/03/20 18 05/11/2018 Overview: --Pt admitted w/ fevers/chills, increased urinary frequency. TLH BCx x3 ports positive for Gram negative bacilli, Klebsiella. CTX-M type ESBL gene detected. Peripheral BCx neg. Urine Cx (in process). --Consult to ID. Consider removal of TLH. --Meropenem IV q8h. ID Recs: if unstable, add quinolone (Cipro 400 IV q12h). --Repeat cultures ordered. --ID Recs: TLH Removal. Use peripheral IV for now --02/03: BCx from 02/02 (Prelim: TLH: Red & White lumens: +Gram neg bacilli, Blue lumen: no growth 2 days, Peripheral: No growth 2 days). Urine cx from 02/01 (Prelim: + Klebsiella pneumoniae). ID Recs: Repeat peripheral BCx x2 today. U/S kidney/bladder to r/o stricture. --02/04: Plan for PICC line placement on 02/05, if BCx neg x48 hrs. (PICC orders placed). ID Recs: May switch to ertapenem depending on susceptibilities and pt may need copat. If switch to ertapenem, pt will need first dose in-hospital. ID anticipates discharge on Wednesday 02/07. Weakness 02/02/2018 08/08/2018 Overview: PT/OT Consult C. difficile colitis history 02/02/201806/2019 Overview: --C. Diff positive on 12/04/17. --ID Recs: Add PO Vanco 125 TID for CDiff prevention --02/04: Pt w/ diarrhea today. C. Diff PCR ordered. Prn Imodium. 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 -Check lab q Wednesday Hypomagnesemia 01/03/2018 08/08/2018 Hemorrhagic cystitis 01/03/2018 08/08/2018 Severe muscle deconditioning 12/27/2017 Overview: -- d/t prolonged illness -- improved with PT -- plan DC with OP PT Dysphagia 12/23/2017 12/29/2017 Overview: --Speech/swallow eval -- Full liquid diet (adv when pt indicates desire to eat foods). Nasal congestion 12/23/2017 12/27/2017 Overview: --Afrin nasal spray x3 days with relief Hypoxia 12/21/2017 12/28/2017 Overview: -- developed post engraftment -- required 50% VM for several days -- 12/21 CXR c/w edema and or pneumonia -- treated with IV vanc and zosyn later changed to Stephane, and aggressive diuresis with good results -- Weaned off O2 -- remained stable off Antibiotics Gross hematuria 12/08/2017 12/20/2017 Overview: -- ? etiology UC neg, BK urine neg, Urine for adenovirus neg -- treated with aggressive (BID)transfuse of plt for < 30K -- received IV hydration -- urology was consulted and he received CBI -- this resolved with engraftment and CBI was DC'd Atrial fibrillation 12/05/2017 12/08/2017 Overview: -- Afib w/ RVR - New onset. CHADSVASc 2 -- treated in MICU with adenosine without success followed by amiodarone CI , metoprolol for rate control Last Assessment & Plan: - Converted back to NSR - Continue Metoprolol 50 mg q8h - no AC currently due to thrombocytopenia Acute hypoxemic respiratory failure 12/04/2017 12/09/2017 Overview: 2/2 afib with RVR and pulmonary edema -- resolved and rate controlled with metoprolol -- he then received aggressive K and mag replacement Last Assessment & Plan: - converted back to NSR. Will continue Metoprolol 50 mg q8h - lasix PRN for pulmonary edema C. difficile diarrhea 12/04/2017 12/20/2017 Overview: -- Treated with a 16 day course of oral Vanc to resolution -- semi formed stool at time of DC Thrombocytopenia 11/22/2017 08/16/2020 Overview: RBC transfusions for Hgb < / = 7 Platelet transfusions for PLT < / = 10K (Premeds not needed during past admission) Immunosuppression 11/22/2017 11/25/2018 Overview: --ACV, Bactrim MWF, Diflucan --IS: [place] MPN (myeloproliferative neoplasm) 04/28/2017 01/10/2020 Overview: Not requiring transfusions. 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 -- treated with empiric Zosyn -- recurrent with Cy infusion -- then afebrile on empiric Zosyn -- all cultures neg -- cxr nl -- neutropenia and fevers resolved -- Zosyn was DC'd CINV (chemotherapy-induced nausea and vomiting) 12/20/2017 Overview: -- treated with IV antiemetics -- supported with IVF -- resolved home with prn oral ativan, and zofran for recurrence documented as of this encounter (statuses as of 01/20/2022) [facility] History of Past illness Narrative* Problem Noted Date Resolved Date Encounter for aftercare following bone marrow tr ansplant 11/17/2018 01/10/2020 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 Will need vanco po bid on discharge (sent for prior auth). Per d/c pharmacy: Pt does not have Rx coverage. Through our discount card, copay would be $50.25. He would have to have this filled at [facility] pharmacy since its a compound. --02/04: Per Case Mgmt: Per infusion pharmacy, meropenem 1g IV q8h - self-pay cost is $66 per day. Ertapenem costs $94/day (total $1300 for full course). ID Recs: May switch to ertapenem depending on susceptibilities and pt may need copat. If switch to ertapenem, pt will need first dose in-hospital. ID anticipates discharge on Wednesday 02/07. Sepsis 02/02/2018 02/08/2018 Sepsis due to Klebsiella 02/02/2018 018 Bacteremia due to Klebsiella pneumoniae 02/03/20 18 05/11/2018 Overview: --Pt admitted w/ fevers/chills, increased urinary frequency. TLH BCx x3 ports positive for Gram negative bacilli, Klebsiella. CTX-M type ESBL gene detected. Peripheral BCx neg. Urine Cx (in process). --Consult to ID. Consider removal of TLH. --Meropenem IV q8h. ID Recs: if unstable, add quinolone (Cipro 400 IV q12h). --Repeat cultures ordered. --ID Recs: TLH Removal. Use peripheral IV for now --02/03: BCx from 02/02 (Prelim: TLH: Red & White lumens: +Gram neg bacilli, Blue lumen: no growth 2 days, Peripheral: No growth 2 days). Urine cx from 02/01 (Prelim: + Klebsiella pneumoniae). ID Recs: Repeat peripheral BCx x2 today. U/S kidney/bladder to r/o stricture. --02/04: Plan for PICC line placement on 02/05, if BCx neg x48 hrs. (PICC orders placed). ID Recs: May switch to ertapenem depending on susceptibilities and pt may need copat. If switch to ertapenem, pt will need first dose in-hospital. ID anticipates discharge on Wednesday 02/07. Weakness 02/02/2018 08/08/2018 Overview: PT/OT Consult C. difficile colitis history 02/02/201806/2019 Overview: --C. Diff positive on 12/04/17. --ID Recs: Add PO Vanco 125 TID for CDiff prevention --02/04: Pt w/ diarrhea today. C. Diff PCR ordered. Prn Imodium. 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 -Check lab q Wednesday Hypomagnesemia 01/03/2018 08/08/2018 Hemorrhagic cystitis 01/03/2018 08/08/2018 Severe muscle deconditioning 12/27/2017 Overview: -- d/t prolonged illness -- improved with PT -- plan DC with OP PT Dysphagia 12/23/2017 12/29/2017 Overview: --Speech/swallow eval -- Full liquid diet (adv when pt indicates desire to eat foods). Nasal congestion 12/23/2017 12/27/2017 Overview: --Afrin nasal spray x3 days with relief Hypoxia 12/21/2017 12/28/2017 Overview: -- developed post engraftment -- required 50% VM for several days -- 12/21 CXR c/w edema and or pneumonia -- treated with IV vanc and zosyn later changed to Stephane, and aggressive diuresis with good results -- Weaned off O2 -- remained stable off Antibiotics Gross hematuria 12/08/2017 12/20/2017 Overview: -- ? etiology UC neg, BK urine neg, Urine for adenovirus neg -- treated with aggressive (BID)transfuse of plt for < 30K -- received IV hydration -- urology was consulted and he received CBI -- this resolved with engraftment and CBI was DC'd Atrial fibrillation 12/05/2017 12/08/2017 Overview: -- Afib w/ RVR - New onset. CHADSVASc 2 -- treated in MICU with adenosine without success followed by amiodarone CI , metoprolol for rate control Last Assessment & Plan: - Converted back to NSR - Continue Metoprolol 50 mg q8h - no AC currently due to thrombocytopenia Acute hypoxemic respiratory failure 12/04/2017 12/09/2017 Overview: 2/2 afib with RVR and pulmonary edema -- resolved and rate controlled with metoprolol -- he then received aggressive K and mag replacement Last Assessment & Plan: - converted back to NSR. Will continue Metoprolol 50 mg q8h - lasix PRN for pulmonary edema C. difficile diarrhea 12/04/2017 12/20/2017 Overview: -- Treated with a 16 day course of oral Vanc to resolution -- semi formed stool at time of DC Thrombocytopenia 11/22/2017 08/16/2020 Overview: RBC transfusions for Hgb < / = 7 Platelet transfusions for PLT < / = 10K (Premeds not needed during past admission) Immunosuppression 11/22/2017 11/25/2018 Overview: --ACV, Bactrim MWF, Diflucan --IS: [place] MPN (myeloproliferative neoplasm) 04/28/2017 01/10/2020 Overview: Not requiring transfusions. 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 -- treated with empiric Zosyn -- recurrent with Cy infusion -- then afebrile on empiric Zosyn -- all cultures neg -- cxr nl -- neutropenia and fevers resolved -- Zosyn was DC'd CINV (chemotherapy-induced nausea and vomiting) 12/20/2017 Overview: -- treated with IV antiemetics -- supported with IVF -- resolved home with prn oral ativan, and zofran for recurrence documented as of this encounter (statuses as of 01/21/2022) [facility] History of Past illness Narrative* Problem Noted Date Resolved Date Encounter for aftercare following bone marrow tr ansplant 11/17/2018 01/10/2020 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 Will need vanco po bid on discharge (sent for prior auth). Per d/c pharmacy: Pt does not have Rx coverage. Through our discount card, copay would be $50.25. He would have to have this filled at [facility] pharmacy since its a compound. --02/04: Per Case Mgmt: Per infusion pharmacy, meropenem 1g IV q8h - self-pay cost is $66 per day. Ertapenem costs $94/day (total $1300 for full course). ID Recs: May switch to ertapenem depending on susceptibilities and pt may need copat. If switch to ertapenem, pt will need first dose in-hospital. ID anticipates discharge on Wednesday 02/07. Sepsis 02/02/2018 02/08/2018 Sepsis due to Klebsiella 02/02/2018 018 Bacteremia due to Klebsiella pneumoniae 02/03/20 18 05/11/2018 Overview: --Pt admitted w/ fevers/chills, increased urinary frequency. TLH BCx x3 ports positive for Gram negative bacilli, Klebsiella. CTX-M type ESBL gene detected. Peripheral BCx neg. Urine Cx (in process). --Consult to ID. Consider removal of TLH. --Meropenem IV q8h. ID Recs: if unstable, add quinolone (Cipro 400 IV q12h). --Repeat cultures ordered. --ID Recs: TLH Removal. Use peripheral IV for now --02/03: BCx from 02/02 (Prelim: TLH: Red & White lumens: +Gram neg bacilli, Blue lumen: no growth 2 days, Peripheral: No growth 2 days). Urine cx from 02/01 (Prelim: + Klebsiella pneumoniae). ID Recs: Repeat peripheral BCx x2 today. U/S kidney/bladder to r/o stricture. --02/04: Plan for PICC line placement on 02/05, if BCx neg x48 hrs. (PICC orders placed). ID Recs: May switch to ertapenem depending on susceptibilities and pt may need copat. If switch to ertapenem, pt will need first dose in-hospital. ID anticipates discharge on Wednesday 02/07. Weakness 02/02/2018 08/08/2018 Overview: PT/OT Consult C. difficile colitis history 02/02/201806/2019 Overview: --C. Diff positive on 12/04/17. --ID Recs: Add PO Vanco 125 TID for CDiff prevention --02/04: Pt w/ diarrhea today. C. Diff PCR ordered. Prn Imodium. 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 -Check lab q Wednesday Hypomagnesemia 01/03/2018 08/08/2018 Hemorrhagic cystitis 01/03/2018 08/08/2018 Severe muscle deconditioning 12/27/2017 Overview: -- d/t prolonged illness -- improved with PT -- plan DC with OP PT Dysphagia 12/23/2017 12/29/2017 Overview: --Speech/swallow eval -- Full liquid diet (adv when pt indicates desire to eat foods). Nasal congestion 12/23/2017 12/27/2017 Overview: --Afrin nasal spray x3 days with relief Hypoxia 12/21/2017 12/28/2017 Overview: -- developed post engraftment -- required 50% VM for several days -- 12/21 CXR c/w edema and or pneumonia -- treated with IV vanc and zosyn later changed to Stephane, and aggressive diuresis with good results -- Weaned off O2 -- remained stable off Antibiotics Gross hematuria 12/08/2017 12/20/2017 Overview: -- ? etiology UC neg, BK urine neg, Urine for adenovirus neg -- treated with aggressive (BID)transfuse of plt for < 30K -- received IV hydration -- urology was consulted and he received CBI -- this resolved with engraftment and CBI was DC'd Atrial fibrillation 12/05/2017 12/08/2017 Overview: -- Afib w/ RVR - New onset. CHADSVASc 2 -- treated in MICU with adenosine without success followed by amiodarone CI , metoprolol for rate control Last Assessment & Plan: - Converted back to NSR - Continue Metoprolol 50 mg q8h - no AC currently due to thrombocytopenia Acute hypoxemic respiratory failure 12/04/2017 12/09/2017 Overview: 2/2 afib with RVR and pulmonary edema -- resolved and rate controlled with metoprolol -- he then received aggressive K and mag replacement Last Assessment & Plan: - converted back to NSR. Will continue Metoprolol 50 mg q8h - lasix PRN for pulmonary edema C. difficile diarrhea 12/04/2017 12/20/2017 Overview: -- Treated with a 16 day course of oral Vanc to resolution -- semi formed stool at time of DC Thrombocytopenia 11/22/2017 08/16/2020 Overview: RBC transfusions for Hgb < / = 7 Platelet transfusions for PLT < / = 10K (Premeds not needed during past admission) Immunosuppression 11/22/2017 11/25/2018 Overview: --ACV, Bactrim MWF, Diflucan --IS: [place] MPN (myeloproliferative neoplasm) 04/28/2017 01/10/2020 Overview: Not requiring transfusions. 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 -- treated with empiric Zosyn -- recurrent with Cy infusion -- then afebrile on empiric Zosyn -- all cultures neg -- cxr nl -- neutropenia and fevers resolved -- Zosyn was DC'd CINV (chemotherapy-induced nausea and vomiting) 12/20/2017 Overview: -- treated with IV antiemetics -- supported with IVF -- resolved home with prn oral ativan, and zofran for recurrence documented as of this encounter (statuses as of 02/16/2022) [facility] History of Past illness Narrative* Problem Noted Date Resolved Date Encounter for aftercare following bone marrow tr ansplant 11/17/2018 01/10/2020 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 Will need vanco po bid on discharge (sent for prior auth). Per d/c pharmacy: Pt does not have Rx coverage. Through our discount card, copay would be $50.25. He would have to have this filled at [facility] pharmacy since its a compound. --02/04: Per Case Mgmt: Per infusion pharmacy, meropenem 1g IV q8h - self-pay cost is $66 per day. Ertapenem costs $94/day (total $1300 for full course). ID Recs: May switch to ertapenem depending on susceptibilities and pt may need copat. If switch to ertapenem, pt will need first dose in-hospital. ID anticipates discharge on Wednesday 02/07. Sepsis 02/02/2018 02/08/2018 Sepsis due to Klebsiella 02/02/2018 018 Bacteremia due to Klebsiella pneumoniae 02/03/20 18 05/11/2018 Overview: --Pt admitted w/ fevers/chills, increased urinary frequency. TLH BCx x3 ports positive for Gram negative bacilli, Klebsiella. CTX-M type ESBL gene detected. Peripheral BCx neg. Urine Cx (in process). --Consult to ID. Consider removal of TLH. --Meropenem IV q8h. ID Recs: if unstable, add quinolone (Cipro 400 IV q12h). --Repeat cultures ordered. --ID Recs: TLH Removal. Use peripheral IV for now --02/03: BCx from 02/02 (Prelim: TLH: Red & White lumens: +Gram neg bacilli, Blue lumen: no growth 2 days, Peripheral: No growth 2 days). Urine cx from 02/01 (Prelim: + Klebsiella pneumoniae). ID Recs: Repeat peripheral BCx x2 today. U/S kidney/bladder to r/o stricture. --02/04: Plan for PICC line placement on 02/05, if BCx neg x48 hrs. (PICC orders placed). ID Recs: May switch to ertapenem depending on susceptibilities and pt may need copat. If switch to ertapenem, pt will need first dose in-hospital. ID anticipates discharge on Wednesday 02/07. Weakness 02/02/2018 08/08/2018 Overview: PT/OT Consult C. difficile colitis history 02/02/201806/2019 Overview: --C. Diff positive on 12/04/17. --ID Recs: Add PO Vanco 125 TID for CDiff prevention --02/04: Pt w/ diarrhea today. C. Diff PCR ordered. Prn Imodium. 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 -Check lab q Wednesday Hypomagnesemia 01/03/2018 08/08/2018 Hemorrhagic cystitis 01/03/2018 08/08/2018 Severe muscle deconditioning 12/27/2017 Overview: -- d/t prolonged illness -- improved with PT -- plan DC with OP PT Dysphagia 12/23/2017 12/29/2017 Overview: --Speech/swallow eval -- Full liquid diet (adv when pt indicates desire to eat foods). Nasal congestion 12/23/2017 12/27/2017 Overview: --Afrin nasal spray x3 days with relief Hypoxia 12/21/2017 12/28/2017 Overview: -- developed post engraftment -- required 50% VM for several days -- 12/21 CXR c/w edema and or pneumonia -- treated with IV vanc and zosyn later changed to Stephane, and aggressive diuresis with good results -- Weaned off O2 -- remained stable off Antibiotics Gross hematuria 12/08/2017 12/20/2017 Overview: -- ? etiology UC neg, BK urine neg, Urine for adenovirus neg -- treated with aggressive (BID)transfuse of plt for < 30K -- received IV hydration -- urology was consulted and he received CBI -- this resolved with engraftment and CBI was DC'd Atrial fibrillation 12/05/2017 12/08/2017 Overview: -- Afib w/ RVR - New onset. CHADSVASc 2 -- treated in MICU with adenosine without success followed by amiodarone CI , metoprolol for rate control Last Assessment & Plan: - Converted back to NSR - Continue Metoprolol 50 mg q8h - no AC currently due to thrombocytopenia Acute hypoxemic respiratory failure 12/04/2017 12/09/2017 Overview: 2/2 afib with RVR and pulmonary edema -- resolved and rate controlled with metoprolol -- he then received aggressive K and mag replacement Last Assessment & Plan: - converted back to NSR. Will continue Metoprolol 50 mg q8h - lasix PRN for pulmonary edema C. difficile diarrhea 12/04/2017 12/20/2017 Overview: -- Treated with a 16 day course of oral Vanc to resolution -- semi formed stool at time of DC Thrombocytopenia 11/22/2017 08/16/2020 Overview: RBC transfusions for Hgb < / = 7 Platelet transfusions for PLT < / = 10K (Premeds not needed during past admission) Immunosuppression 11/22/2017 11/25/2018 Overview: --ACV, Bactrim MWF, Diflucan --IS: [place] MPN (myeloproliferative neoplasm) 04/28/2017 01/10/2020 Overview: Not requiring transfusions. 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 Will need vanco po bid on discharge (sent for prior auth). Per d/c pharmacy: Pt does not have Rx coverage. Through our discount card, copay would be $50.25. He would have to have this filled at [facility] pharmacy since its a compound. --02/04: Per Case Mgmt: Per infusion pharmacy, meropenem 1g IV q8h - self-pay cost is $66 per day. Ertapenem costs $94/day (total $1300 for full course). ID Recs: May switch to ertapenem depending on susceptibilities and pt may need copat. If switch to ertapenem, pt will need first dose in-hospital. ID anticipates discharge on Wednesday 02/07. Sepsis 02/02/2018 02/08/2018 Sepsis due to Klebsiella 02/02/2018 018 Bacteremia due to Klebsiella pneumoniae 02/03/20 18 05/11/2018 Overview: --Pt admitted w/ fevers/chills, increased urinary frequency. TLH BCx x3 ports positive for Gram negative bacilli, Klebsiella. CTX-M type ESBL gene detected. Peripheral BCx neg. Urine Cx (in process). --Consult to ID. Consider removal of TLH. --Meropenem IV q8h. ID Recs: if unstable, add quinolone (Cipro 400 IV q12h). --Repeat cultures ordered. --ID Recs: TLH Removal. Use peripheral IV for now --02/03: BCx from 02/02 (Prelim: TLH: Red & White lumens: +Gram neg bacilli, Blue lumen: no growth 2 days, Peripheral: No growth 2 days). Urine cx from 02/01 (Prelim: + Klebsiella pneumoniae). ID Recs: Repeat peripheral BCx x2 today. U/S kidney/bladder to r/o stricture. --02/04: Plan for PICC line placement on 02/05, if BCx neg x48 hrs. (PICC orders placed). ID Recs: May switch to ertapenem depending on susceptibilities and pt may need copat. If switch to ertapenem, pt will need first dose in-hospital. ID anticipates discharge on Wednesday 02/07. Weakness 02/02/2018 08/08/2018 Overview: PT/OT Consult C. difficile colitis history 02/02/201806/2019 Overview: --C. Diff positive on 12/04/17. --ID Recs: Add PO Vanco 125 TID for CDiff prevention --02/04: Pt w/ diarrhea today. C. Diff PCR ordered. Prn Imodium. 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 -Check lab q Wednesday Hypomagnesemia 01/03/2018 08/08/2018 Hemorrhagic cystitis 01/03/2018 08/08/2018 Severe muscle deconditioning 12/27/2017 Overview: -- d/t prolonged illness -- improved with PT -- plan DC with OP PT Dysphagia 12/23/2017 12/29/2017 Overview: --Speech/swallow eval -- Full liquid diet (adv when pt indicates desire to eat foods). Nasal congestion 12/23/2017 12/27/2017 Overview: --Afrin nasal spray x3 days with relief Hypoxia 12/21/2017 12/28/2017 Overview: -- developed post engraftment -- required 50% VM for several days -- 12/21 CXR c/w edema and or pneumonia -- treated with IV vanc and zosyn later changed to Stephane, and aggressive diuresis with good results -- Weaned off O2 -- remained stable off Antibiotics Gross hematuria 12/08/2017 12/20/2017 Overview: -- ? etiology UC neg, BK urine neg, Urine for adenovirus neg -- treated with aggressive (BID)transfuse of plt for < 30K -- received IV hydration -- urology was consulted and he received CBI -- this resolved with engraftment and CBI was DC'd Atrial fibrillation 12/05/2017 12/08/2017 Overview: -- Afib w/ RVR - New onset. CHADSVASc 2 -- treated in MICU with adenosine without success followed by amiodarone CI , metoprolol for rate control Last Assessment & Plan: - Converted back to NSR - Continue Metoprolol 50 mg q8h - no AC currently due to thrombocytopenia Acute hypoxemic respiratory failure 12/04/2017 12/09/2017 Overview: 2/2 afib with RVR and pulmonary edema -- resolved and rate controlled with metoprolol -- he then received aggressive K and mag replacement Last Assessment & Plan: - converted back to NSR. Will continue Metoprolol 50 mg q8h - lasix PRN for pulmonary edema C. difficile diarrhea 12/04/2017 12/20/2017 Overview: -- Treated with a 16 day course of oral Vanc to resolution -- semi formed stool at time of DC Thrombocytopenia 11/22/2017 08/16/2020 Overview: RBC transfusions for Hgb < / = 7 Platelet transfusions for PLT < / = 10K (Premeds not needed during past admission) Immunosuppression 11/22/2017 11/25/2018 Overview: --ACV, Bactrim MWF, Diflucan --IS: [place] MPN (myeloproliferative neoplasm) 04/28/2017 01/10/2020 Overview: Not requiring transfusions. 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 -- treated with empiric Zosyn -- recurrent with Cy infusion -- then afebrile on empiric Zosyn -- all cultures neg -- cxr nl -- neutropenia and fevers resolved -- Zosyn was DC'd CINV (chemotherapy-induced nausea and vomiting) 12/20/2017 Overview: -- treated with IV antiemetics -- supported with IVF -- resolved home with prn oral ativan, and zofran for recurrence documented as of this encounter (statuses as of 03/04/2022) [facility] History of Past illness Narrative* Problem Noted Date Resolved Date Encounter for aftercare following bone marrow tr ansplant 11/17/2018 01/10/2020 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 Will need vanco po bid on discharge (sent for prior auth). Per d/c pharmacy: Pt does not have Rx coverage. Through our discount card, copay would be $50.25. He would have to have this filled at [facility] pharmacy since its a compound. --02/04: Per Case Mgmt: Per infusion pharmacy, meropenem 1g IV q8h - self-pay cost is $66 per day. Ertapenem costs $94/day (total $1300 for full course). ID Recs: May switch to ertapenem depending on susceptibilities and pt may need copat. If switch to ertapenem, pt will need first dose in-hospital. ID anticipates discharge on Wednesday 02/07. Sepsis 02/02/2018 02/08/2018 Sepsis due to Klebsiella 02/02/2018 018 Bacteremia due to Klebsiella pneumoniae 02/03/20 18 05/11/2018 Overview: --Pt admitted w/ fevers/chills, increased urinary frequency. TLH BCx x3 ports positive for Gram negative bacilli, Klebsiella. CTX-M type ESBL gene detected. Peripheral BCx neg. Urine Cx (in process). --Consult to ID. Consider removal of TLH. --Meropenem IV q8h. ID Recs: if unstable, add quinolone (Cipro 400 IV q12h). --Repeat cultures ordered. --ID Recs: TLH Removal. Use peripheral IV for now --02/03: BCx from 02/02 (Prelim: TLH: Red & White lumens: +Gram neg bacilli, Blue lumen: no growth 2 days, Peripheral: No growth 2 days). Urine cx from 02/01 (Prelim: + Klebsiella pneumoniae). ID Recs: Repeat peripheral BCx x2 today. U/S kidney/bladder to r/o stricture. --02/04: Plan for PICC line placement on 02/05, if BCx neg x48 hrs. (PICC orders placed). ID Recs: May switch to ertapenem depending on susceptibilities and pt may need copat. If switch to ertapenem, pt will need first dose in-hospital. ID anticipates discharge on Wednesday 02/07. Weakness 02/02/2018 08/08/2018 Overview: PT/OT Consult C. difficile colitis history 02/02/201806/2019 Overview: --C. Diff positive on 12/04/17. --ID Recs: Add PO Vanco 125 TID for CDiff prevention --02/04: Pt w/ diarrhea today. C. Diff PCR ordered. Prn Imodium. 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 -Check lab q Wednesday Hypomagnesemia 01/03/2018 08/08/2018 Hemorrhagic cystitis 01/03/2018 08/08/2018 Severe muscle deconditioning 12/27/2017 Overview: -- d/t prolonged illness -- improved with PT -- plan DC with OP PT Dysphagia 12/23/2017 12/29/2017 Overview: --Speech/swallow eval -- Full liquid diet (adv when pt indicates desire to eat foods). Nasal congestion 12/23/2017 12/27/2017 Overview: --Afrin nasal spray x3 days with relief Hypoxia 12/21/2017 12/28/2017 Overview: -- developed post engraftment -- required 50% VM for several days -- 12/21 CXR c/w edema and or pneumonia -- treated with IV vanc and zosyn later changed to Stephane, and aggressive diuresis with good results -- Weaned off O2 -- remained stable off Antibiotics Gross hematuria 12/08/2017 12/20/2017 Overview: -- ? etiology UC neg, BK urine neg, Urine for adenovirus neg -- treated with aggressive (BID)transfuse of plt for < 30K -- received IV hydration -- urology was consulted and he received CBI -- this resolved with engraftment and CBI was DC'd Atrial fibrillation 12/05/2017 12/08/2017 Overview: -- Afib w/ RVR - New onset. CHADSVASc 2 -- treated in MICU with adenosine without success followed by amiodarone CI , metoprolol for rate control Last Assessment & Plan: - Converted back to NSR - Continue Metoprolol 50 mg q8h - no AC currently due to thrombocytopenia Acute hypoxemic respiratory failure 12/04/2017 12/09/2017 Overview: 2/2 afib with RVR and pulmonary edema -- resolved and rate controlled with metoprolol -- he then received aggressive K and mag replacement Last Assessment & Plan: - converted back to NSR. Will continue Metoprolol 50 mg q8h - lasix PRN for pulmonary edema C. difficile diarrhea 12/04/2017 12/20/2017 Overview: -- Treated with a 16 day course of oral Vanc to resolution -- semi formed stool at time of DC Thrombocytopenia 11/22/2017 08/16/2020 Overview: RBC transfusions for Hgb < / = 7 Platelet transfusions for PLT < / = 10K (Premeds not needed during past admission) Immunosuppression 11/22/2017 11/25/2018 Overview: --ACV, Bactrim MWF, Diflucan --IS: [place] MPN (myeloproliferative neoplasm) 04/28/2017 01/10/2020 Overview: Not requiring transfusions. 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 -- treated with empiric Zosyn -- recurrent with Cy infusion -- then afebrile on empiric Zosyn -- all cultures neg -- cxr nl -- neutropenia and fevers resolved -- Zosyn was DC'd CINV (chemotherapy-induced nausea and vomiting) 12/20/2017 Overview: -- treated with IV antiemetics -- supported with IVF -- resolved home with prn oral ativan, and zofran for recurrence documented as of this encounter (statuses as of 07/15/2022) [facility] History of Past illness Narrative* Problem Noted Date Resolved Date Encounter for aftercare following bone marrow tr ansplant 11/17/2018 01/10/2020 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 Will need vanco po bid on discharge (sent for prior auth). Per d/c pharmacy: Pt does not have Rx coverage. Through our discount card, copay would be $50.25. He would have to have this filled at [facility] pharmacy since its a compound. --02/04: Per Case Mgmt: Per infusion pharmacy, meropenem 1g IV q8h - self-pay cost is $66 per day. Ertapenem costs $94/day (total $1300 for full course). ID Recs: May switch to ertapenem depending on susceptibilities and pt may need copat. If switch to ertapenem, pt will need first dose in-hospital. ID anticipates discharge on Wednesday 02/07. Sepsis 02/02/2018 02/08/2018 Sepsis due to Klebsiella 02/02/2018 018 Bacteremia due to Klebsiella pneumoniae 02/03/20 18 05/11/2018 Overview: --Pt admitted w/ fevers/chills, increased urinary frequency. TLH BCx x3 ports positive for Gram negative bacilli, Klebsiella. CTX-M type ESBL gene detected. Peripheral BCx neg. Urine Cx (in process). --Consult to ID. Consider removal of TLH. --Meropenem IV q8h. ID Recs: if unstable, add quinolone (Cipro 400 IV q12h). --Repeat cultures ordered. --ID Recs: TLH Removal. Use peripheral IV for now --02/03: BCx from 02/02 (Prelim: TLH: Red & White lumens: +Gram neg bacilli, Blue lumen: no growth 2 days, Peripheral: No growth 2 days). Urine cx from 02/01 (Prelim: + Klebsiella pneumoniae). ID Recs: Repeat peripheral BCx x2 today. U/S kidney/bladder to r/o stricture. --02/04: Plan for PICC line placement on 02/05, if BCx neg x48 hrs. (PICC orders placed). ID Recs: May switch to ertapenem depending on susceptibilities and pt may need copat. If switch to ertapenem, pt will need first dose in-hospital. ID anticipates discharge on Wednesday 02/07. Weakness 02/02/2018 08/08/2018 Overview: PT/OT Consult C. difficile colitis history 02/02/201806/2019 Overview: --C. Diff positive on 12/04/17. --ID Recs: Add PO Vanco 125 TID for CDiff prevention --02/04: Pt w/ diarrhea today. C. Diff PCR ordered. Prn Imodium. 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 -Check lab q Wednesday Hypomagnesemia 01/03/2018 08/08/2018 Hemorrhagic cystitis 01/03/2018 08/08/2018 Severe muscle deconditioning 12/27/2017 Overview: -- d/t prolonged illness -- improved with PT -- plan DC with OP PT Dysphagia 12/23/2017 12/29/2017 Overview: --Speech/swallow eval -- Full liquid diet (adv when pt indicates desire to eat foods). Nasal congestion 12/23/2017 12/27/2017 Overview: --Afrin nasal spray x3 days with relief Hypoxia 12/21/2017 12/28/2017 Overview: -- developed post engraftment -- required 50% VM for several days -- 12/21 CXR c/w edema and or pneumonia -- treated with IV vanc and zosyn later changed to Stephane, and aggressive diuresis with good results -- Weaned off O2 -- remained stable off Antibiotics Gross hematuria 12/08/2017 12/20/2017 Overview: -- ? etiology UC neg, BK urine neg, Urine for adenovirus neg -- treated with aggressive (BID)transfuse of plt for < 30K -- received IV hydration -- urology was consulted and he received CBI -- this resolved with engraftment and CBI was DC'd Atrial fibrillation 12/05/2017 12/08/2017 Overview: -- Afib w/ RVR - New onset. CHADSVASc 2 -- treated in MICU with adenosine without success followed by amiodarone CI , metoprolol for rate control Last Assessment & Plan: - Converted back to NSR - Continue Metoprolol 50 mg q8h - no AC currently due to thrombocytopenia Acute hypoxemic respiratory failure 12/04/2017 12/09/2017 Overview: 2/2 afib with RVR and pulmonary edema -- resolved and rate controlled with metoprolol -- he then received aggressive K and mag replacement Last Assessment & Plan: - converted back to NSR. Will continue Metoprolol 50 mg q8h - lasix PRN for pulmonary edema C. difficile diarrhea 12/04/2017 12/20/2017 Overview: -- Treated with a 16 day course of oral Vanc to resolution -- semi formed stool at time of DC Thrombocytopenia 11/22/2017 08/16/2020 Overview: RBC transfusions for Hgb < / = 7 Platelet transfusions for PLT < / = 10K (Premeds not needed during past admission) Immunosuppression 11/22/2017 11/25/2018 Overview: --ACV, Bactrim MWF, Diflucan --IS: [place] MPN (myeloproliferative neoplasm) 04/28/2017 01/10/2020 Overview: Not requiring transfusions. 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 -- treated with empiric Zosyn -- recurrent with Cy infusion -- then afebrile on empiric Zosyn -- all cultures neg -- cxr nl -- neutropenia and fevers resolved -- Zosyn was DC'd CINV (chemotherapy-induced nausea and vomiting) 12/20/2017 Overview: -- treated with IV antiemetics -- supported with IVF -- resolved home with prn oral ativan, and zofran for recurrence documented as of this encounter (statuses as of 07/24/2022) [facility] History of Past illness Narrative* Problem Noted Date Resolved Date Encounter for aftercare following bone marrow tr ansplant 11/17/2018 01/10/2020 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 Will need vanco po bid on discharge (sent for prior auth). Per d/c pharmacy: Pt does not have Rx coverage. Through our discount card, copay would be $50.25. He would have to have this filled at [facility] pharmacy since its a compound. --02/04: Per Case Mgmt: Per infusion pharmacy, meropenem 1g IV q8h - self-pay cost is $66 per day. Ertapenem costs $94/day (total $1300 for full course). ID Recs: May switch to ertapenem depending on susceptibilities and pt may need copat. If switch to ertapenem, pt will need first dose in-hospital. ID anticipates discharge on Wednesday 02/07. Sepsis 02/02/2018 02/08/2018 Sepsis due to Klebsiella 02/02/2018 018 Bacteremia due to Klebsiella pneumoniae 02/03/20 18 05/11/2018 Overview: --Pt admitted w/ fevers/chills, increased urinary frequency. TLH BCx x3 ports positive for Gram negative bacilli, Klebsiella. CTX-M type ESBL gene detected. Peripheral BCx neg. Urine Cx (in process). --Consult to ID. Consider removal of TLH. --Meropenem IV q8h. ID Recs: if unstable, add quinolone (Cipro 400 IV q12h). --Repeat cultures ordered. --ID Recs: TLH Removal. Use peripheral IV for now --02/03: BCx from 02/02 (Prelim: [facility]: Red & White lumens: +Gram neg bacilli, Blue lumen: no growth 2 days, Peripheral: No growth 2 days). Urine cx from 02/01 (Prelim: + Klebsiella pneumoniae). ID Recs: Repeat peripheral BCx x2 today. U/S kidney/bladder to r/o stricture. --02/04: Plan for PICC line placement on 02/05, if BCx neg x48 hrs. (PICC orders placed). ID Recs: May switch to ertapenem depending on susceptibilities and pt may need copat. If switch to ertapenem, pt will need first dose in-hospital. ID anticipates discharge on Wednesday 02/07. Weakness 02/02/2018 08/08/2018 Overview: PT/OT Consult C. difficile colitis history 02/02/201806/2019 Overview: --C. Diff positive on 12/04/17. --ID Recs: Add PO Vanco 125 TID for CDiff prevention --02/04: Pt w/ diarrhea today. C. Diff PCR ordered. Prn Imodium. 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 -Check lab q Wednesday Hypomagnesemia 01/03/2018 08/08/2018 Hemorrhagic cystitis 01/03/2018 08/08/2018 Severe muscle deconditioning 12/27/2017 Overview: -- d/t prolonged illness -- improved with PT -- plan DC with OP PT Dysphagia 12/23/2017 12/29/2017 Overview: --Speech/swallow eval -- Full liquid diet (adv when pt indicates desire to eat foods). Nasal congestion 12/23/2017 12/27/2017 Overview: --Afrin nasal spray x3 days with relief Hypoxia 12/21/2017 12/28/2017 Overview: -- developed post engraftment -- required 50% VM for several days -- 12/21 CXR c/w edema and or pneumonia -- treated with IV vanc and zosyn later changed to Stephane, and aggressive diuresis with good results -- Weaned off O2 -- remained stable off Antibiotics Gross hematuria 12/08/2017 12/20/2017 Overview: -- ? etiology UC neg, BK urine neg, Urine for adenovirus neg -- treated with aggressive (BID)transfuse of plt for < 30K -- received IV hydration -- urology was consulted and he received CBI -- this resolved with engraftment and CBI was DC'd Atrial fibrillation 12/05/2017 12/08/2017 Overview: -- Afib w/ RVR - New onset. CHADSVASc 2 -- treated in MICU with adenosine without success followed by amiodarone CI , metoprolol for rate control Last Assessment & Plan: - Converted back to NSR - Continue Metoprolol 50 mg q8h - no AC currently due to thrombocytopenia Acute hypoxemic respiratory failure 12/04/2017 12/09/2017 Overview: 2/2 afib with RVR and pulmonary edema -- resolved and rate controlled with metoprolol -- he then received aggressive K and mag replacement Last Assessment & Plan: - converted back to NSR. Will continue Metoprolol 50 mg q8h - lasix PRN for pulmonary edema C. difficile diarrhea 12/04/2017 12/20/2017 Overview: -- Treated with a 16 day course of oral Vanc to resolution -- semi formed stool at time of DC Thrombocytopenia 11/22/2017 08/16/2020 Overview: RBC transfusions for Hgb < / = 7 Platelet transfusions for PLT < / = 10K (Premeds not needed during past admission) Immunosuppression 11/22/2017 11/25/2018 Overview: --ACV, Bactrim MWF, Diflucan --IS: [place] MPN (myeloproliferative neoplasm) 04/28/2017 01/10/2020 Overview: Not requiring transfusions. 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 -- treated with empiric Zosyn -- recurrent with Cy infusion -- then afebrile on empiric Zosyn -- all cultures neg -- cxr nl -- neutropenia and fevers resolved -- Zosyn was DC'd CINV (chemotherapy-induced nausea and vomiting) 12/20/2017 Overview: -- treated with IV antiemetics -- supported with IVF -- resolved home with prn oral ativan, and zofran for recurrence documented as of this encounter (statuses as of 08/10/2022) [facility] History of Past illness Narrative* Problem Noted Date Resolved Date Encounter for aftercare following bone marrow tr ansplant 11/17/2018 01/10/2020 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 Will need vanco po bid on discharge (sent for prior auth). Per d/c pharmacy: Pt does not have Rx coverage. Through our discount card, copay would be $50.25. He would have to have this filled at [facility] pharmacy since its a compound. --02/04: Per Case Mgmt: Per infusion pharmacy, meropenem 1g IV q8h - self-pay cost is $66 per day. Ertapenem costs $94/day (total $1300 for full course). ID Recs: May switch to ertapenem depending on susceptibilities and pt may need copat. If switch to ertapenem, pt will need first dose in-hospital. ID anticipates discharge on Wednesday 02/07. Sepsis 02/02/2018 02/08/2018 Sepsis due to Klebsiella 02/02/2018 018 Bacteremia due to Klebsiella pneumoniae 02/03/20 18 05/11/2018 Overview: --Pt admitted w/ fevers/chills, increased urinary frequency. TLH BCx x3 ports positive for Gram negative bacilli, Klebsiella. CTX-M type ESBL gene detected. Peripheral BCx neg. Urine Cx (in process). --Consult to ID. Consider removal of TLH. --Meropenem IV q8h. ID Recs: if unstable, add quinolone (Cipro 400 IV q12h). --Repeat cultures ordered. --ID Recs: TLH Removal. Use peripheral IV for now --02/03: BCx from 02/02 (Prelim: [facility]: Red & White lumens: +Gram neg bacilli, Blue lumen: no growth 2 days, Peripheral: No growth 2 days). Urine cx from 02/01 (Prelim: + Klebsiella pneumoniae). ID Recs: Repeat peripheral BCx x2 today. U/S kidney/bladder to r/o stricture. --02/04: Plan for PICC line placement on 02/05, if BCx neg x48 hrs. (PICC orders placed). ID Recs: May switch to ertapenem depending on susceptibilities and pt may need copat. If switch to ertapenem, pt will need first dose in-hospital. ID anticipates discharge on Wednesday 02/07. Weakness 02/02/2018 08/08/2018 Overview: PT/OT Consult C. difficile colitis history 02/02/201806/2019 Overview: --C. Diff positive on 12/04/17. --ID Recs: Add PO Vanco 125 TID for CDiff prevention --02/04: Pt w/ diarrhea today. C. Diff PCR ordered. Prn Imodium. 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 -Check lab q Wednesday Hypomagnesemia 01/03/2018 08/08/2018 Hemorrhagic cystitis 01/03/2018 08/08/2018 Severe muscle deconditioning 12/27/2017 Overview: -- d/t prolonged illness -- improved with PT -- plan DC with OP PT Dysphagia 12/23/2017 12/29/2017 Overview: --Speech/swallow eval -- Full liquid diet (adv when pt indicates desire to eat foods). Nasal congestion 12/23/2017 12/27/2017 Overview: --Afrin nasal spray x3 days with relief Hypoxia 12/21/2017 12/28/2017 Overview: -- developed post engraftment -- required 50% VM for several days -- 12/21 CXR c/w edema and or pneumonia -- treated with IV vanc and zosyn later changed to Stephane, and aggressive diuresis with good results -- Weaned off O2 -- remained stable off Antibiotics Gross hematuria 12/08/2017 12/20/2017 Overview: -- ? etiology UC neg, BK urine neg, Urine for adenovirus neg -- treated with aggressive (BID)transfuse of plt for < 30K -- received IV hydration -- urology was consulted and he received CBI -- this resolved with engraftment and CBI was DC'd Atrial fibrillation 12/05/2017 12/08/2017 Overview: -- Afib w/ RVR - New onset. CHADSVASc 2 -- treated in MICU with adenosine without success followed by amiodarone CI , metoprolol for rate control Last Assessment & Plan: - Converted back to NSR - Continue Metoprolol 50 mg q8h - no AC currently due to thrombocytopenia Acute hypoxemic respiratory failure 12/04/2017 12/09/2017 Overview: 2/2 afib with RVR and pulmonary edema -- resolved and rate controlled with metoprolol -- he then received aggressive K and mag replacement Last Assessment & Plan: - converted back to NSR. Will continue Metoprolol 50 mg q8h - lasix PRN for pulmonary edema C. difficile diarrhea 12/04/2017 12/20/2017 Overview: -- Treated with a 16 day course of oral Vanc to resolution -- semi formed stool at time of DC Thrombocytopenia 11/22/2017 08/16/2020 Overview: RBC transfusions for Hgb < / = 7 Platelet transfusions for PLT < / = 10K (Premeds not needed during past admission) Immunosuppression 11/22/2017 11/25/2018 Overview: --ACV, Bactrim MWF, Diflucan --IS: [place] MPN (myeloproliferative neoplasm) 04/28/2017 01/10/2020 Overview: Not requiring transfusions. 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 -- treated with empiric Zosyn -- recurrent with Cy infusion -- then afebrile on empiric Zosyn -- all cultures neg -- cxr nl -- neutropenia and fevers resolved -- Zosyn was DC'd CINV (chemotherapy-induced nausea and vomiting) 12/20/2017 Overview: -- treated with IV antiemetics -- supported with IVF -- resolved home with prn oral ativan, and zofran for recurrence documented as of this encounter (statuses as of 08/27/2022) [facility] History of Past illness Narrative* Problem Noted Date Resolved Date Encounter for aftercare following bone marrow tr ansplant 11/17/2018 01/10/2020 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 Will need vanco po bid on discharge (sent for prior auth). Per d/c pharmacy: Pt does not have Rx coverage. Through our discount card, copay would be $50.25. He would have to have this filled at [facility] pharmacy since its a compound. --02/04: Per Case Mgmt: Per infusion pharmacy, meropenem 1g IV q8h - self-pay cost is $66 per day. Ertapenem costs $94/day (total $1300 for full course). ID Recs: May switch to ertapenem depending on susceptibilities and pt may need copat. If switch to ertapenem, pt will need first dose in-hospital. ID anticipates discharge on Wednesday 02/07. Sepsis 02/02/2018 02/08/2018 Sepsis due to Klebsiella 02/02/2018 018 Bacteremia due to Klebsiella pneumoniae 02/03/20 18 05/11/2018 Overview: --Pt admitted w/ fevers/chills, increased urinary frequency. TLH BCx x3 ports positive for Gram negative bacilli, Klebsiella. CTX-M type ESBL gene detected. Peripheral BCx neg. Urine Cx (in process). --Consult to ID. Consider removal of TLH. --Meropenem IV q8h. ID Recs: if unstable, add quinolone (Cipro 400 IV q12h). --Repeat cultures ordered. --ID Recs: TLH Removal. Use peripheral IV for now --02/03: BCx from 02/02 (Prelim: [facility]: Red & White lumens: +Gram neg bacilli, Blue lumen: no growth 2 days, Peripheral: No growth 2 days). Urine cx from 02/01 (Prelim: + Klebsiella pneumoniae). ID Recs: Repeat peripheral BCx x2 today. U/S kidney/bladder to r/o stricture. --02/04: Plan for PICC line placement on 02/05, if BCx neg x48 hrs. (PICC orders placed). ID Recs: May switch to ertapenem depending on susceptibilities and pt may need copat. If switch to ertapenem, pt will need first dose in-hospital. ID anticipates discharge on Wednesday 02/07. Weakness 02/02/2018 08/08/2018 Overview: PT/OT Consult C. difficile colitis history 02/02/201806/2019 Overview: --C. Diff positive on 12/04/17. --ID Recs: Add PO Vanco 125 TID for CDiff prevention --02/04: Pt w/ diarrhea today. C. Diff PCR ordered. Prn Imodium. 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 -Check lab q Wednesday Hypomagnesemia 01/03/2018 08/08/2018 Hemorrhagic cystitis 01/03/2018 08/08/2018 Severe muscle deconditioning 12/27/2017 Overview: -- d/t prolonged illness -- improved with PT -- plan DC with OP PT Dysphagia 12/23/2017 12/29/2017 Overview: --Speech/swallow eval -- Full liquid diet (adv when pt indicates desire to eat foods). Nasal congestion 12/23/2017 12/27/2017 Overview: --Afrin nasal spray x3 days with relief Hypoxia 12/21/2017 12/28/2017 Overview: -- developed post engraftment -- required 50% VM for several days -- 12/21 CXR c/w edema and or pneumonia -- treated with IV vanc and zosyn later changed to Stephane, and aggressive diuresis with good results -- Weaned off O2 -- remained stable off Antibiotics Gross hematuria 12/08/2017 12/20/2017 Overview: -- ? etiology UC neg, BK urine neg, Urine for adenovirus neg -- treated with aggressive (BID)transfuse of plt for < 30K -- received IV hydration -- urology was consulted and he received CBI -- this resolved with engraftment and CBI was DC'd Atrial fibrillation 12/05/2017 12/08/2017 Overview: -- Afib w/ RVR - New onset. CHADSVASc 2 -- treated in MICU with adenosine without success followed by amiodarone CI , metoprolol for rate control Last Assessment & Plan: - Converted back to NSR - Continue Metoprolol 50 mg q8h - no AC currently due to thrombocytopenia Acute hypoxemic respiratory failure 12/04/2017 12/09/2017 Overview: 2/2 afib with RVR and pulmonary edema -- resolved and rate controlled with metoprolol -- he then received aggressive K and mag replacement Last Assessment & Plan: - converted back to NSR. Will continue Metoprolol 50 mg q8h - lasix PRN for pulmonary edema C. difficile diarrhea 12/04/2017 12/20/2017 Overview: -- Treated with a 16 day course of oral Vanc to resolution -- semi formed stool at time of DC Thrombocytopenia 11/22/2017 08/16/2020 Overview: RBC transfusions for Hgb < / = 7 Platelet transfusions for PLT < / = 10K (Premeds not needed during past admission) Immunosuppression 11/22/2017 11/25/2018 Overview: --ACV, Bactrim MWF, Diflucan --IS: [place] MPN (myeloproliferative neoplasm) 04/28/2017 01/10/2020 Overview: Not requiring transfusions. 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 -- treated with empiric Zosyn -- recurrent with Cy infusion -- then afebrile on empiric Zosyn -- all cultures neg -- cxr nl -- neutropenia and fevers resolved -- Zosyn was DC'd CINV (chemotherapy-induced nausea and vomiting) 12/20/2017 Overview: -- treated with IV antiemetics -- supported with IVF -- resolved home with prn oral ativan, and zofran for recurrence documented as of this encounter (statuses as of 01/15/2023) [facility] History of Past illness Narrative* Problem Noted Date Resolved Date Encounter for aftercare following bone marrow tr ansplant 11/17/2018 01/10/2020 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 Will need vanco po bid on discharge (sent for prior auth). Per d/c pharmacy: Pt does not have Rx coverage. Through our discount card, copay would be $50.25. He would have to have this filled at [facility] pharmacy since its a compound. --02/04: Per Case Mgmt: Per infusion pharmacy, meropenem 1g IV q8h - self-pay cost is $66 per day. Ertapenem costs $94/day (total $1300 for full course). ID Recs: May switch to ertapenem depending on susceptibilities and pt may need copat. If switch to ertapenem, pt will need first dose in-hospital. ID anticipates discharge on Wednesday 02/07. Sepsis 02/02/2018 02/08/2018 Sepsis due to Klebsiella 02/02/2018 018 Bacteremia due to Klebsiella pneumoniae 02/03/20 18 05/11/2018 Overview: --Pt admitted w/ fevers/chills, increased urinary frequency. TLH BCx x3 ports positive for Gram negative bacilli, Klebsiella. CTX-M type ESBL gene detected. Peripheral BCx neg. Urine Cx (in process). --Consult to ID. Consider removal of TLH. --Meropenem IV q8h. ID Recs: if unstable, add quinolone (Cipro 400 IV q12h). --Repeat cultures ordered. --ID Recs: TLH Removal. Use peripheral IV for now --02/03: BCx from 02/02 (Prelim: TLH: Red & White lumens: +Gram neg bacilli, Blue lumen: no growth 2 days, Peripheral: No growth 2 days). Urine cx from 02/01 (Prelim: + Klebsiella pneumoniae). ID Recs: Repeat peripheral BCx x2 today. U/S kidney/bladder to r/o stricture. --02/04: Plan for PICC line placement on 02/05, if BCx neg x48 hrs. (PICC orders placed). ID Recs: May switch to ertapenem depending on susceptibilities and pt may need copat. If switch to ertapenem, pt will need first dose in-hospital. ID anticipates discharge on Wednesday 02/07. Weakness 02/02/2018 08/08/2018 Overview: PT/OT Consult C. difficile colitis history 02/02/201806/2019 Overview: --C. Diff positive on 12/04/17. --ID Recs: Add PO Vanco 125 TID for CDiff prevention --02/04: Pt w/ diarrhea today. C. Diff PCR ordered. Prn Imodium. 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 -Check lab q Wednesday Hypomagnesemia 01/03/2018 08/08/2018 Hemorrhagic cystitis 01/03/2018 08/08/2018 Severe muscle deconditioning 12/27/2017 Overview: -- d/t prolonged illness -- improved with PT -- plan DC with OP PT Dysphagia 12/23/2017 12/29/2017 Overview: --Speech/swallow eval -- Full liquid diet (adv when pt indicates desire to eat foods). Nasal congestion 12/23/2017 12/27/2017 Overview: --Afrin nasal spray x3 days with relief Hypoxia 12/21/2017 12/28/2017 Overview: -- developed post engraftment -- required 50% VM for several days -- 12/21 CXR c/w edema and or pneumonia -- treated with IV vanc and zosyn later changed to Stephane, and aggressive diuresis with good results -- Weaned off O2 -- remained stable off Antibiotics Gross hematuria 12/08/2017 12/20/2017 Overview: -- ? etiology UC neg, BK urine neg, Urine for adenovirus neg -- treated with aggressive (BID)transfuse of plt for < 30K -- received IV hydration -- urology was consulted and he received CBI -- this resolved with engraftment and CBI was DC'd Atrial fibrillation 12/05/2017 12/08/2017 Overview: -- Afib w/ RVR - New onset. CHADSVASc 2 -- treated in MICU with adenosine without success followed by amiodarone CI , metoprolol for rate control Last Assessment & Plan: - Converted back to NSR - Continue Metoprolol 50 mg q8h - no AC currently due to thrombocytopenia Acute hypoxemic respiratory failure 12/04/2017 12/09/2017 Overview: 2/2 afib with RVR and pulmonary edema -- resolved and rate controlled with metoprolol -- he then received aggressive K and mag replacement Last Assessment & Plan: - converted back to NSR. Will continue Metoprolol 50 mg q8h - lasix PRN for pulmonary edema C. difficile diarrhea 12/04/2017 12/20/2017 Overview: -- Treated with a 16 day course of oral Vanc to resolution -- semi formed stool at time of DC Thrombocytopenia 11/22/2017 08/16/2020 Overview: RBC transfusions for Hgb < / = 7 Platelet transfusions for PLT < / = 10K (Premeds not needed during past admission) Immunosuppression 11/22/2017 11/25/2018 Overview: --ACV, Bactrim MWF, Diflucan --IS: [place] MPN (myeloproliferative neoplasm) 04/28/2017 01/10/2020 Overview: Not requiring transfusions. 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 -- treated with empiric Zosyn -- recurrent with Cy infusion -- then afebrile on empiric Zosyn -- all cultures neg -- cxr nl -- neutropenia and fevers resolved -- Zosyn was DC'd CINV (chemotherapy-induced nausea and vomiting) 12/20/2017 Overview: -- treated with IV antiemetics -- supported with IVF -- resolved home with prn oral ativan, and zofran for recurrence documented as of this encounter (statuses as of 01/22/2023) [facility] History of Past illness Narrative* Problem Noted Date Diagnosed Date Resolved Date Encounter for aftercare foll owing bone marrow transplant 11/17/2018 01/10/2020 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 Will need vanco po bid on discharge (sent for prior auth). Per d/c pharmacy: Pt does not have Rx coverage. Through our discount card, copay would be $50.25. He would have to have this filled at [facility] pharmacy since its a compound. --02/04: Per Case Mgmt: Per infusion pharmacy, meropenem 1g IV q8h - self-pay cost is $66 per day. Ertapenem costs $94/day (total $1300 for full course). ID Recs: May switch to ertapenem depending on susceptibilities and pt may need copat. If switch to ertapenem, pt will need first dose in-hospital. ID anticipates discharge on Wednesday 02/07. Sepsis 02/02/2018 02/08/2018 Sepsis due to Klebsiella 02/02/2018 Bacteremia due to Klebsiella pneumoniae 02/02/2018 05/11/2018 Overview: --Pt admitted w/ fevers/chills, increased urinary frequency. TLH BCx x3 ports positive for Gram negative bacilli, Klebsiella. CTX-M type ESBL gene detected. Peripheral BCx neg. Urine Cx (in process). --Consult to ID. Consider removal of TLH. --Meropenem IV q8h. ID Recs: if unstable, add quinolone (Cipro 400 IV q12h). --Repeat cultures ordered. --ID Recs: TLH Removal. Use peripheral IV for now --02/03: BCx from 02/02 (Prelim: TLH: Red & White lumens: +Gram neg bacilli, Blue lumen: no growth 2 days, Peripheral: No growth 2 days). Urine cx from 02/01 (Prelim: + Klebsiella pneumoniae). ID Recs: Repeat peripheral BCx x2 today. U/S kidney/bladder to r/o stricture. --02/04: Plan for PICC line placement on 02/05, if BCx neg x48 hrs. (PICC orders placed). ID Recs: May switch to ertapenem depending on susceptibilities and pt may need copat. If switch to ertapenem, pt will need first dose in-hospital. ID anticipates discharge on Wednesday 02/07. Weakness 02/02/2018 08/08/2018 Overview: PT/OT Consult C. difficile colitis history 02/02/2018 09/22/2018 Overview: --C. Diff positive on 12/04/17. --ID Recs: Add PO Vanco 125 TID for CDiff prevention --02/04: Pt w/ diarrhea today. C. Diff PCR ordered. Prn Imodium. 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 -Check lab q [place] Hypomagnesemia 01/03/2018 08/08/2018 Hemorrhagic cystitis 01/03/2018 018 Severe muscle deconditioning 12/27/2017 02/08/2018 Overview: -- d/t prolonged illness -- improved with PT -- plan DC with OP PT Dysphagia 12/23/2017 12/29/2017 Overview: --Speech/swallow eval -- Full liquid diet (adv when pt indicates desire to eat foods). Nasal congestion 12/23/2017 12/27/2017 Overview: --Afrin nasal spray x3 days with relief Hypoxia 12/21/2017 12/28/2017 Overview: -- developed post engraftment -- required 50% VM for several days -- 12/21 CXR c/w edema and or pneumonia -- treated with IV vanc and zosyn later changed to Stephane, and aggressive diuresis with good results -- Weaned off O2 -- remained stable off Antibiotics Gross hematuria 12/08/2017 12/20/2017 Overview: -- ? etiology UC neg, BK urine neg, Urine for adenovirus neg -- treated with aggressive (BID)transfuse of plt for < 30K -- received IV hydration -- urology was consulted and he received CBI -- this resolved with engraftment and CBI was DC'd Atrial fibrillation 12/05/2017 12/09/19 Overview: -- Afib w/ RVR - New onset. CHADSVASc 2 -- treated in MICU with adenosine without success followed by amiodarone CI , metoprolol for rate control Last Assessment & Plan: - Converted back to NSR - Continue Metoprolol 50 mg q8h - no AC currently due to thrombocytopenia Acute hypoxemic respiratory failure 12/04/2017 12/09/2017 Overview: 2/2 afib with RVR and pulmonary edema -- resolved and rate controlled with metoprolol -- he then received aggressive K and mag replacement Last Assessment & Plan: - converted back to NSR. Will continue Metoprolol 50 mg q8h - lasix PRN for pulmonary edema C. difficile diarrhea 12/04/20172017 Overview: -- Treated with a 16 day course of oral Vanc to resolution -- semi formed stool at time of DC Thrombocytopenia 11/22/2017 08/16/2020 Overview: RBC transfusions for Hgb < / = 7 Platelet transfusions for PLT < / = 10K (Premeds not needed during past admission) Immunosuppression 11/22/2017 11/25/2018 Overview: --ACV, Bactrim MWF, Diflucan --IS: [place] MPN (myeloproliferative neoplasm) 04/28/2017 01/10/2020 Overview: Not requiring transfusions. 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 -- treated with empiric Zosyn -- recurrent with Cy infusion -- then afebrile on empiric Zosyn -- all cultures neg -- cxr nl -- neutropenia and fevers resolved -- Zosyn was DC'd CINV (chemotherapy-induced n ausea and vomiting) 12/20/2017 Overview: -- treated with IV antiemetics -- supported with IVF -- resolved home with prn oral ativan, and zofran for recurrence documented as of this encounter (statuses as of 04/02/2023) [facility] History of Past illness Narrative* Problem Noted Date Diagnosed Date Resolved Date Encounter for aftercare foll owing bone marrow transplant 11/17/2018 01/10/2020 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 Will need vanco po bid on discharge (sent for prior auth). Per d/c pharmacy: Pt does not have Rx coverage. Through our discount card, copay would be $50.25. He would have to have this filled at [facility] pharmacy since its a compound. --02/04: Per Case Mgmt: Per infusion pharmacy, meropenem 1g IV q8h - self-pay cost is $66 per day. Ertapenem costs $94/day (total $1300 for full course). ID Recs: May switch to ertapenem depending on susceptibilities and pt may need copat. If switch to ertapenem, pt will need first dose in-hospital. ID anticipates discharge on Wednesday 02/07. Sepsis 02/02/2018 02/08/2018 Sepsis due to Klebsiella 02/02/2018 Bacteremia due to Klebsiella pneumoniae 02/02/2018 05/11/2018 Overview: --Pt admitted w/ fevers/chills, increased urinary frequency. TLH BCx x3 ports positive for Gram negative bacilli, Klebsiella. CTX-M type ESBL gene detected. Peripheral BCx neg. Urine Cx (in process). --Consult to ID. Consider removal of TLH. --Meropenem IV q8h. ID Recs: if unstable, add quinolone (Cipro 400 IV q12h). --Repeat cultures ordered. --ID Recs: TLH Removal. Use peripheral IV for now --02/03: BCx from 02/02 (Prelim: TL[facility]: Red & White lumens: +Gram neg bacilli, Blue lumen: no growth 2 days, Peripheral: No growth 2 days). Urine cx from 02/01 (Prelim: + Klebsiella pneumoniae). ID Recs: Repeat peripheral BCx x2 today. U/S kidney/bladder to r/o stricture. --02/04: Plan for PICC line placement on 02/05, if BCx neg x48 hrs. (PICC orders placed). ID Recs: May switch to ertapenem depending on susceptibilities and pt may need copat. If switch to ertapenem, pt will need first dose in-hospital. ID anticipates discharge on Wednesday 02/07. Weakness 02/02/2018 08/08/2018 Overview: PT/OT Consult C. difficile colitis history 02/02/2018 09/22/2018 Overview: --C. Diff positive on 12/04/17. --ID Recs: Add PO Vanco 125 TID for CDiff prevention --02/04: Pt w/ diarrhea today. C. Diff PCR ordered. Prn Imodium. 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 -Check lab q Wednesday Hypomagnesemia 01/03/2018 08/08/2018 Hemorrhagic cystitis 01/03/2018 018 Severe muscle deconditioning 12/27/2017 02/08/2018 Overview: -- d/t prolonged illness -- improved with PT -- plan DC with OP PT Dysphagia 12/23/2017 12/29/2017 Overview: --Speech/swallow eval -- Full liquid diet (adv when pt indicates desire to eat foods). Nasal congestion 12/23/2017 12/27/2017 Overview: --Afrin nasal spray x3 days with relief Hypoxia 12/21/2017 12/28/2017 Overview: -- developed post engraftment -- required 50% VM for several days -- 12/21 CXR c/w edema and or pneumonia -- treated with IV vanc and zosyn later changed to Stephane, and aggressive diuresis with good results -- Weaned off O2 -- remained stable off Antibiotics Gross hematuria 12/08/2017 12/20/2017 Overview: -- ? etiology UC neg, BK urine neg, Urine for adenovirus neg -- treated with aggressive (BID)transfuse of plt for < 30K -- received IV hydration -- urology was consulted and he received CBI -- this resolved with engraftment and CBI was DC'd Atrial fibrillation 12/05/2017 12/09/19 18 Overview: -- Afib w/ RVR - New onset. CHADSVASc 2 -- treated in MICU with adenosine without success followed by amiodarone CI , metoprolol for rate control Last Assessment & Plan: - Converted back to NSR - Continue Metoprolol 50 mg q8h - no AC currently due to thrombocytopenia Acute hypoxemic respiratory failure 12/04/2017 12/09/2017 Overview: 2/2 afib with RVR and pulmonary edema -- resolved and rate controlled with metoprolol -- he then received aggressive K and mag replacement Last Assessment & Plan: - converted back to NSR. Will continue Metoprolol 50 mg q8h - lasix PRN for pulmonary edema C. difficile diarrhea 12/04/20172017 Overview: -- Treated with a 16 day course of oral Vanc to resolution -- semi formed stool at time of DC Thrombocytopenia 11/22/2017 08/16/2020 Overview: RBC transfusions for Hgb < / = 7 Platelet transfusions for PLT < / = 10K (Premeds not needed during past admission) Immunosuppression 11/22/2017 11/25/2018 Overview: --ACV, Bactrim MWF, Diflucan --IS: [place] MPN (myeloproliferative neoplasm) 04/28/2017 01/10/2020 Overview: Not requiring transfusions. 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 Will need vanco po bid on discharge (sent for prior auth). Per d/c pharmacy: Pt does not have Rx coverage. Through our discount card, copay would be $50.25. He would have to have this filled at [facility] pharmacy since its a compound. --02/04: Per Case Mgmt: Per infusion pharmacy, meropenem 1g IV q8h - self-pay cost is $66 per day. Ertapenem costs $94/day (total $1300 for full course). ID Recs: May switch to ertapenem depending on susceptibilities and pt may need copat. If switch to ertapenem, pt will need first dose in-hospital. ID anticipates discharge on Wednesday 02/07. Sepsis 02/02/2018 02/08/2018 Sepsis due to Klebsiella 02/02/2018 Bacteremia due to Klebsiella pneumoniae 02/02/2018 05/11/2018 Overview: --Pt admitted w/ fevers/chills, increased urinary frequency. TLH BCx x3 ports positive for Gram negative bacilli, Klebsiella. CTX-M type ESBL gene detected. Peripheral BCx neg. Urine Cx (in process). --Consult to ID. Consider removal of TLH. --Meropenem IV q8h. ID Recs: if unstable, add quinolone (Cipro 400 IV q12h). --Repeat cultures ordered. --ID Recs: TLH Removal. Use peripheral IV for now --02/03: BCx from 02/02 (Prelim: TL[facility]: Red & White lumens: +Gram neg bacilli, Blue lumen: no growth 2 days, Peripheral: No growth 2 days). Urine cx from 02/01 (Prelim: + Klebsiella pneumoniae). ID Recs: Repeat peripheral BCx x2 today. U/S kidney/bladder to r/o stricture. --02/04: Plan for PICC line placement on 02/05, if BCx neg x48 hrs. (PICC orders placed). ID Recs: May switch to ertapenem depending on susceptibilities and pt may need copat. If switch to ertapenem, pt will need first dose in-hospital. ID anticipates discharge on Wednesday 02/07. Weakness 02/02/2018 08/08/2018 Overview: PT/OT Consult C. difficile colitis history 02/02/2018 09/22/2018 Overview: --C. Diff positive on 12/04/17. --ID Recs: Add PO Vanco 125 TID for CDiff prevention --02/04: Pt w/ diarrhea today. C. Diff PCR ordered. Prn Imodium. 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 -Check lab q Wednesday Hypomagnesemia 01/03/2018 08/08/2018 Hemorrhagic cystitis 01/03/2018 018 Severe muscle deconditioning 12/27/2017 02/08/2018 Overview: -- d/t prolonged illness -- improved with PT -- plan DC with OP PT Dysphagia 12/23/2017 12/29/2017 Overview: --Speech/swallow eval -- Full liquid diet (adv when pt indicates desire to eat foods). Nasal congestion 12/23/2017 12/27/2017 Overview: --Afrin nasal spray x3 days with relief Hypoxia 12/21/2017 12/28/2017 Overview: -- developed post engraftment -- required 50% VM for several days -- 12/21 CXR c/w edema and or pneumonia -- treated with IV vanc and zosyn later changed to Stephane, and aggressive diuresis with good results -- Weaned off O2 -- remained stable off Antibiotics Gross hematuria 12/08/2017 12/20/2017 Overview: -- ? etiology UC neg, BK urine neg, Urine for adenovirus neg -- treated with aggressive (BID)transfuse of plt for < 30K -- received IV hydration -- urology was consulted and he received CBI -- this resolved with engraftment and CBI was DC'd Atrial fibrillation 12/05/2017 12/09/19 Overview: -- Afib w/ RVR - New onset. CHADSVASc 2 -- treated in MICU with adenosine without success followed by amiodarone CI , metoprolol for rate control Last Assessment & Plan: - Converted back to NSR - Continue Metoprolol 50 mg q8h - no AC currently due to thrombocytopenia Acute hypoxemic respiratory failure 12/04/2017 12/09/2017 Overview: 2/2 afib with RVR and pulmonary edema -- resolved and rate controlled with metoprolol -- he then received aggressive K and mag replacement Last Assessment & Plan: - converted back to NSR. Will continue Metoprolol 50 mg q8h - lasix PRN for pulmonary edema C. difficile diarrhea 12/04/20172017 Overview: -- Treated with a 16 day course of oral Vanc to resolution -- semi formed stool at time of DC Thrombocytopenia 11/22/2017 08/16/2020 Overview: RBC transfusions for Hgb < / = 7 Platelet transfusions for PLT < / = 10K (Premeds not needed during past admission) Immunosuppression 11/22/2017 11/25/2018 Overview: --ACV, Bactrim MWF, Diflucan --IS: [place] MPN (myeloproliferative neoplasm) 04/28/2017 01/10/2020 Overview: Not requiring transfusions. 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 -- treated with empiric Zosyn -- recurrent with Cy infusion -- then afebrile on empiric Zosyn -- all cultures neg -- cxr nl -- neutropenia and fevers resolved -- Zosyn was DC'd CINV (chemotherapy-induced n ausea and vomiting) 12/20/2017 Overview: -- treated with IV antiemetics -- supported with IVF -- resolved home with prn oral ativan, and zofran for recurrence documented as of this encounter (statuses as of 06/02/2023) [facility] History of Past illness Narrative* Problem Noted Date Diagnosed Date Resolved Date Encounter for aftercare foll owing bone marrow transplant 11/17/2018 01/10/2020 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 Will need vanco po bid on discharge (sent for prior auth). Per d/c pharmacy: Pt does not have Rx coverage. Through our discount card, copay would be $50.25. He would have to have this filled at [facility] pharmacy since its a compound. --02/04: Per Case Mgmt: Per infusion pharmacy, meropenem 1g IV q8h - self-pay cost is $66 per day. Ertapenem costs $94/day (total $1300 for full course). ID Recs: May switch to ertapenem depending on susceptibilities and pt may need copat. If switch to ertapenem, pt will need first dose in-hospital. ID anticipates discharge on Wednesday 02/07. Sepsis 02/02/2018 02/08/2018 Sepsis due to Klebsiella 02/02/2018 Bacteremia due to Klebsiella pneumoniae 02/02/2018 05/11/2018 Overview: --Pt admitted w/ fevers/chills, increased urinary frequency. TLH BCx x3 ports positive for Gram negative bacilli, Klebsiella. CTX-M type ESBL gene detected. Peripheral BCx neg. Urine Cx (in process). --Consult to ID. Consider removal of TLH. --Meropenem IV q8h. ID Recs: if unstable, add quinolone (Cipro 400 IV q12h). --Repeat cultures ordered. --ID Recs: TLH Removal. Use peripheral IV for now --02/03: BCx from 02/02 (Prelim: TLH: Red & White lumens: +Gram neg bacilli, Blue lumen: no growth 2 days, Peripheral: No growth 2 days). Urine cx from 02/01 (Prelim: + Klebsiella pneumoniae). ID Recs: Repeat peripheral BCx x2 today. U/S kidney/bladder to r/o stricture. --02/04: Plan for PICC line placement on 02/05, if BCx neg x48 hrs. (PICC orders placed). ID Recs: May switch to ertapenem depending on susceptibilities and pt may need copat. If switch to ertapenem, pt will need first dose in-hospital. ID anticipates discharge on Wednesday 02/07. Weakness 02/02/2018 08/08/2018 Overview: PT/OT Consult C. difficile colitis history 02/02/2018 09/22/2018 Overview: --C. Diff positive on 12/04/17. --ID Recs: Add PO Vanco 125 TID for CDiff prevention --02/04: Pt w/ diarrhea today. C. Diff PCR ordered. Prn Imodium. 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 -Check lab q Wednesday Hypomagnesemia 01/03/2018 08/08/2018 Hemorrhagic cystitis 01/03/2018 018 Severe muscle deconditioning 12/27/2017 02/08/2018 Overview: -- d/t prolonged illness -- improved with PT -- plan DC with OP PT Dysphagia 12/23/2017 12/29/2017 Overview: --Speech/swallow eval -- Full liquid diet (adv when pt indicates desire to eat foods). Nasal congestion 12/23/2017 12/27/2017 Overview: --Afrin nasal spray x3 days with relief Hypoxia 12/21/2017 12/28/2017 Overview: -- developed post engraftment -- required 50% VM for several days -- 12/21 CXR c/w edema and or pneumonia -- treated with IV vanc and zosyn later changed to Stephane, and aggressive diuresis with good results -- Weaned off O2 -- remained stable off Antibiotics Gross hematuria 12/08/2017 12/20/2017 Overview: -- ? etiology UC neg, BK urine neg, Urine for adenovirus neg -- treated with aggressive (BID)transfuse of plt for < 30K -- received IV hydration -- urology was consulted and he received CBI -- this resolved with engraftment and CBI was DC'd Atrial fibrillation 12/05/2017 12/09/19 Overview: -- Afib w/ RVR - New onset. CHADSVASc 2 -- treated in MICU with adenosine without success followed by amiodarone CI , metoprolol for rate control Last Assessment & Plan: - Converted back to NSR - Continue Metoprolol 50 mg q8h - no AC currently due to thrombocytopenia Acute hypoxemic respiratory failure 12/04/2017 12/09/2017 Overview: 2/2 afib with RVR and pulmonary edema -- resolved and rate controlled with metoprolol -- he then received aggressive K and mag replacement Last Assessment & Plan: - converted back to NSR. Will continue Metoprolol 50 mg q8h - lasix PRN for pulmonary edema C. difficile diarrhea 12/04/20172017 Overview: -- Treated with a 16 day course of oral Vanc to resolution -- semi formed stool at time of DC Thrombocytopenia 11/22/2017 08/16/2020 Overview: RBC transfusions for Hgb < / = 7 Platelet transfusions for PLT < / = 10K (Premeds not needed during past admission) Immunosuppression 11/22/2017 11/25/2018 Overview: --ACV, Bactrim MWF, Diflucan --IS: [place] MPN (myeloproliferative neoplasm) 04/28/2017 01/10/2020 Overview: Not requiring transfusions. 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 -- treated with empiric Zosyn -- recurrent with Cy infusion -- then afebrile on empiric Zosyn -- all cultures neg -- cxr nl -- neutropenia and fevers resolved -- Zosyn was DC'd CINV (chemotherapy-induced n ausea and vomiting) 12/20/2017 Overview: -- treated with IV antiemetics -- supported with IVF -- resolved home with prn oral ativan, and zofran for recurrence documented as of this encounter (statuses as of 06/19/2023) [facility] History of Past illness Narrative* Problem Noted Date Diagnosed Date Resolved Date Encounter for aftercare foll owing bone marrow transplant 11/17/2018 01/10/2020 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 Will need vanco po bid on discharge (sent for prior auth). Per d/c pharmacy: Pt does not have Rx coverage. Through our discount card, copay would be $50.25. He would have to have this filled at [facility] pharmacy since its a compound. --02/04: Per Case Mgmt: Per infusion pharmacy, meropenem 1g IV q8h - self-pay cost is $66 per day. Ertapenem costs $94/day (total $1300 for full course). ID Recs: May switch to ertapenem depending on susceptibilities and pt may need copat. If switch to ertapenem, pt will need first dose in-hospital. ID anticipates discharge on Wednesday 02/07. Sepsis 02/02/2018 02/08/2018 Sepsis due to Klebsiella 02/02/2018 Bacteremia due to Klebsiella pneumoniae 02/02/2018 05/11/2018 Overview: --Pt admitted w/ fevers/chills, increased urinary frequency. [facility] BCx x3 ports positive for Gram negative bacilli, Klebsiella. CTX-M type ESBL gene detected. Peripheral BCx neg. Urine Cx (in process). --Consult to ID. Consider removal of TLH. --Meropenem IV q8h. ID Recs: if unstable, add quinolone (Cipro 400 IV q12h). --Repeat cultures ordered. --ID Recs: TLH Removal. Use peripheral IV for now --02/03: BCx from 02/02 (Prelim: [facility]: Red & White lumens: +Gram neg bacilli, Blue lumen: no growth 2 days, Peripheral: No growth 2 days). Urine cx from 02/01 (Prelim: + Klebsiella pneumoniae). ID Recs: Repeat peripheral BCx x2 today. U/S kidney/bladder to r/o stricture. --02/04: Plan for PICC line placement on 02/05, if BCx neg x48 hrs. (PICC orders placed). ID Recs: May switch to ertapenem depending on susceptibilities and pt may need copat. If switch to ertapenem, pt will need first dose in-hospital. ID anticipates discharge on Wednesday 02/07. Weakness 02/02/2018 08/08/2018 Overview: PT/OT Consult C. difficile colitis history 02/02/2018 09/22/2018 Overview: --C. Diff positive on 12/04/17. --ID Recs: Add PO Vanco 125 TID for CDiff prevention --02/04: Pt w/ diarrhea today. C. Diff PCR ordered. Prn Imodium. 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 -Check lab q Wednesday Hypomagnesemia 01/03/2018 08/08/2018 Hemorrhagic cystitis 01/03/2018 018 Severe muscle deconditioning 12/27/2017 02/08/2018 Overview: -- d/t prolonged illness -- improved with PT -- plan DC with OP PT Dysphagia 12/23/2017 12/29/2017 Overview: --Speech/swallow eval -- Full liquid diet (adv when pt indicates desire to eat foods). Nasal congestion 12/23/2017 12/27/2017 Overview: --Afrin nasal spray x3 days with relief Hypoxia 12/21/2017 12/28/2017 Overview: -- developed post engraftment -- required 50% VM for several days -- 12/21 CXR c/w edema and or pneumonia -- treated with IV vanc and zosyn later changed to Stephane, and aggressive diuresis with good results -- Weaned off O2 -- remained stable off Antibiotics Gross hematuria 12/08/2017 12/20/2017 Overview: -- ? etiology UC neg, BK urine neg, Urine for adenovirus neg -- treated with aggressive (BID)transfuse of plt for < 30K -- received IV hydration -- urology was consulted and he received CBI -- this resolved with engraftment and CBI was DC'd Atrial fibrillation 12/05/2017 12/09/19 Overview: -- Afib w/ RVR - New onset. CHADSVASc 2 -- treated in MICU with adenosine without success followed by amiodarone CI , metoprolol for rate control Last Assessment & Plan: - Converted back to NSR - Continue Metoprolol 50 mg q8h - no AC currently due to thrombocytopenia Acute hypoxemic respiratory failure 12/04/2017 12/09/2017 Overview: 2/2 afib with RVR and pulmonary edema -- resolved and rate controlled with metoprolol -- he then received aggressive K and mag replacement Last Assessment & Plan: - converted back to NSR. Will continue Metoprolol 50 mg q8h - lasix PRN for pulmonary edema C. difficile diarrhea 12/04/20172017 Overview: -- Treated with a 16 day course of oral Vanc to resolution -- semi formed stool at time of DC Thrombocytopenia 11/22/2017 08/16/2020 Overview: RBC transfusions for Hgb < / = 7 Platelet transfusions for PLT < / = 10K (Premeds not needed during past admission) Immunosuppression 11/22/2017 11/25/2018 Overview: --ACV, Bactrim MWF, Diflucan --IS: [place] MPN (myeloproliferative neoplasm) 04/28/2017 01/10/2020 Overview: Not requiring transfusions. 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 Will need vanco po bid on discharge (sent for prior auth). Per d/c pharmacy: Pt does not have Rx coverage. Through our discount card, copay would be $50.25. He would have to have this filled at [facility] pharmacy since its a compound. --02/04: Per Case Mgmt: Per infusion pharmacy, meropenem 1g IV q8h - self-pay cost is $66 per day. Ertapenem costs $94/day (total $1300 for full course). ID Recs: May switch to ertapenem depending on susceptibilities and pt may need copat. If switch to ertapenem, pt will need first dose in-hospital. ID anticipates discharge on Wednesday 02/07. Sepsis 02/02/2018 02/08/2018 Sepsis due to Klebsiella 02/02/2018 Bacteremia due to Klebsiella pneumoniae 02/02/2018 05/11/2018 Overview: --Pt admitted w/ fevers/chills, increased urinary frequency. [facility] BCx x3 ports positive for Gram negative bacilli, Klebsiella. CTX-M type ESBL gene detected. Peripheral BCx neg. Urine Cx (in process). --Consult to ID. Consider removal of TLH. --Meropenem IV q8h. ID Recs: if unstable, add quinolone (Cipro 400 IV q12h). --Repeat cultures ordered. --ID Recs: TLH Removal. Use peripheral IV for now --02/03: BCx from 02/02 (Prelim: [facility]: Red & White lumens: +Gram neg bacilli, Blue lumen: no growth 2 days, Peripheral: No growth 2 days). Urine cx from 02/01 (Prelim: + Klebsiella pneumoniae). ID Recs: Repeat peripheral BCx x2 today. U/S kidney/bladder to r/o stricture. --02/04: Plan for PICC line placement on 02/05, if BCx neg x48 hrs. (PICC orders placed). ID Recs: May switch to ertapenem depending on susceptibilities and pt may need copat. If switch to ertapenem, pt will need first dose in-hospital. ID anticipates discharge on Wednesday 02/07. Weakness 02/02/2018 08/08/2018 Overview: PT/OT Consult C. difficile colitis history 02/02/2018 09/22/2018 Overview: --C. Diff positive on 12/04/17. --ID Recs: Add PO Vanco 125 TID for CDiff prevention --02/04: Pt w/ diarrhea today. C. Diff PCR ordered. Prn Imodium. 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 -Check lab q Wednesday Hypomagnesemia 01/03/2018 08/08/2018 Hemorrhagic cystitis 01/03/2018 018 Severe muscle deconditioning 12/27/2017 02/08/2018 Overview: -- d/t prolonged illness -- improved with PT -- plan DC with OP PT Dysphagia 12/23/2017 12/29/2017 Overview: --Speech/swallow eval -- Full liquid diet (adv when pt indicates desire to eat foods). Nasal congestion 12/23/2017 12/27/2017 Overview: --Afrin nasal spray x3 days with relief Hypoxia 12/21/2017 12/28/2017 Overview: -- developed post engraftment -- required 50% VM for several days -- 12/21 CXR c/w edema and or pneumonia -- treated with IV vanc and zosyn later changed to Stephane, and aggressive diuresis with good results -- Weaned off O2 -- remained stable off Antibiotics Gross hematuria 12/08/2017 12/20/2017 Overview: -- ? etiology UC neg, BK urine neg, Urine for adenovirus neg -- treated with aggressive (BID)transfuse of plt for < 30K -- received IV hydration -- urology was consulted and he received CBI -- this resolved with engraftment and CBI was DC'd Atrial fibrillation 12/05/2017 12/09/19 Overview: -- Afib w/ RVR - New onset. CHADSVASc 2 -- treated in MICU with adenosine without success followed by amiodarone CI , metoprolol for rate control Last Assessment & Plan: - Converted back to NSR - Continue Metoprolol 50 mg q8h - no AC currently due to thrombocytopenia Acute hypoxemic respiratory failure 12/04/2017 12/09/2017 Overview: 2/2 afib with RVR and pulmonary edema -- resolved and rate controlled with metoprolol -- he then received aggressive K and mag replacement Last Assessment & Plan: - converted back to NSR. Will continue Metoprolol 50 mg q8h - lasix PRN for pulmonary edema C. difficile diarrhea 12/04/20172017 Overview: -- Treated with a 16 day course of oral Vanc to resolution -- semi formed stool at time of DC Thrombocytopenia 11/22/2017 08/16/2020 Overview: RBC transfusions for Hgb < / = 7 Platelet transfusions for PLT < / = 10K (Premeds not needed during past admission) Immunosuppression 11/22/2017 11/25/2018 Overview: --ACV, Bactrim MWF, Diflucan --IS: [place] MPN (myeloproliferative neoplasm) 04/28/2017 01/10/2020 Overview: Not requiring transfusions. 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 Will need vanco po bid on discharge (sent for prior auth). Per d/c pharmacy: Pt does not have Rx coverage. Through our discount card, copay would be $50.25. [facility] since its [facility] compound. --02/04: Per Case Mgmt: Per infusion pharmacy, meropenem 1g IV q8h - self-pay cost is $66 per day. Ertapenem costs $94/day (total $1300 for full course). ID Recs: May switch to ertapenem depending on susceptibilities and pt may need copat. If switch to ertapenem, pt will need first dose in-hospital. ID anticipates discharge on Wednesday 02/07. Sepsis 02/02/2018 02/08/2018 Sepsis due to Klebsiella 02/02/2018 Bacteremia due to Klebsiella pneumoniae 02/02/2018 05/11/2018 Overview: --Pt admitted w/ fevers/chills, increased urinary frequency. TLH BCx x3 ports positive for Gram negative bacilli, Klebsiella. CTX-M type ESBL gene detected. Peripheral BCx neg. Urine Cx (in process). --Consult to ID. Consider removal of TLH. --Meropenem IV q8h. ID Recs: if unstable, add quinolone (Cipro 400 IV q12h). --Repeat cultures ordered. --ID Recs: TLH Removal. Use peripheral IV for now --02/03: BCx from 02/02 (Prelim: [facility]: Red & White lumens: +Gram neg bacilli, Blue lumen: no growth 2 days, Peripheral: No growth 2 days). Urine cx from 02/01 (Prelim: + Klebsiella pneumoniae). ID Recs: Repeat peripheral BCx x2 today. U/S kidney/bladder to r/o stricture. --02/04: Plan for PICC line placement on 02/05, if BCx neg x48 hrs. (PICC orders placed). ID Recs: May switch to ertapenem depending on susceptibilities and pt may need copat. If switch to ertapenem, pt will need first dose in-hospital. ID anticipates discharge on Wednesday 02/07. Weakness 02/02/2018 08/08/2018 Overview: PT/OT Consult C. difficile colitis history 02/02/2018 09/22/2018 Overview: --C. Diff positive on 12/04/17. --ID Recs: Add PO Vanco 125 TID for CDiff prevention --02/04: Pt w/ diarrhea today. C. Diff PCR ordered. Prn Imodium. 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 -Check lab q Wednesday Hypomagnesemia 01/03/2018 08/08/2018 Hemorrhagic cystitis 01/03/2018 018 Severe muscle deconditioning 12/27/2017 02/08/2018 Overview: -- d/t prolonged illness -- improved with PT -- plan DC with OP PT Dysphagia 12/23/2017 12/29/2017 Overview: --Speech/swallow eval -- Full liquid diet (adv when pt indicates desire to eat foods). Nasal congestion 12/23/2017 12/27/2017 Overview: --Afrin nasal spray x3 days with relief Hypoxia 12/21/2017 12/28/2017 Overview: -- developed post engraftment -- required 50% VM for several days -- 12/21 CXR c/w edema and or pneumonia -- treated with IV vanc and zosyn later changed to Stephane, and aggressive diuresis with good results -- Weaned off O2 -- remained stable off Antibiotics Gross hematuria 12/08/2017 12/20/2017 Overview: -- ? etiology UC neg, BK urine neg, Urine for adenovirus neg -- treated with aggressive (BID)transfuse of plt for < 30K -- received IV hydration -- urology was consulted and he received CBI -- this resolved with engraftment and CBI was DC'd Atrial fibrillation 12/05/2017 12/09/19 Overview: -- Afib w/ RVR - New onset. CHADSVASc 2 -- treated in MICU with adenosine without success followed by amiodarone CI , metoprolol for rate control Last Assessment & Plan: - Converted back to NSR - Continue Metoprolol 50 mg q8h - no AC currently due to thrombocytopenia Acute hypoxemic respiratory failure 12/04/2017 12/09/2017 Overview: 2/2 afib with RVR and pulmonary edema -- resolved and rate controlled with metoprolol -- he then received aggressive K and mag replacement Last Assessment & Plan: - converted back to NSR. Will continue Metoprolol 50 mg q8h - lasix PRN for pulmonary edema C. difficile diarrhea 12/04/20172017 Overview: -- Treated with a 16 day course of oral Vanc to resolution -- semi formed stool at time of DC Thrombocytopenia 11/22/2017 08/16/2020 Overview: RBC transfusions for Hgb < / = 7 Platelet transfusions for PLT < / = 10K (Premeds not needed during past admission) Immunosuppression 11/22/2017 11/25/2018 Overview: --ACV, Bactrim MWF, Diflucan --IS: [place] MPN (myeloproliferative neoplasm) 04/28/2017 01/10/2020 Overview: Not requiring transfusions. 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 Will need vanco po bid on discharge (sent for prior auth). Per d/c pharmacy: Pt does not have Rx coverage. Through our discount card, copay would be $50.25. He would have to have this filled at [facility] pharmacy since its a compound. --02/04: Per Case Mgmt: Per infusion pharmacy, meropenem 1g IV q8h - self-pay cost is $66 per day. Ertapenem costs $94/day (total $1300 for full course). ID Recs: May switch to ertapenem depending on susceptibilities and pt may need copat. If switch to ertapenem, pt will need first dose in-hospital. ID anticipates discharge on Wednesday 02/07. Sepsis 02/02/2018 02/08/2018 Sepsis due to Klebsiella 02/02/2018 Bacteremia due to Klebsiella pneumoniae 02/02/2018 05/11/2018 Overview: --Pt admitted w/ fevers/chills, increased urinary frequency. TLH BCx x3 ports positive for Gram negative bacilli, Klebsiella. CTX-M type ESBL gene detected. Peripheral BCx neg. Urine Cx (in process). --Consult to ID. Consider removal of TLH. --Meropenem IV q8h. ID Recs: if unstable, add quinolone (Cipro 400 IV q12h). --Repeat cultures ordered. --ID Recs: TLH Removal. Use peripheral IV for now --02/03: BCx from 02/02 (Prelim: TL[facility]: Red & White lumens: +Gram neg bacilli, Blue lumen: no growth 2 days, Peripheral: No growth 2 days). Urine cx from 02/01 (Prelim: + Klebsiella pneumoniae). ID Recs: Repeat peripheral BCx x2 today. U/S kidney/bladder to r/o stricture. --02/04: Plan for PICC line placement on 02/05, if BCx neg x48 hrs. (PICC orders placed). ID Recs: May switch to ertapenem depending on susceptibilities and pt may need copat. If switch to ertapenem, pt will need first dose in-hospital. ID anticipates discharge on Wednesday 02/07. Weakness 02/02/2018 08/08/2018 Overview: PT/OT Consult C. difficile colitis history 02/02/2018 09/22/2018 Overview: --C. Diff positive on 12/04/17. --ID Recs: Add PO Vanco 125 TID for CDiff prevention --02/04: Pt w/ diarrhea today. C. Diff PCR ordered. Prn Imodium. 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 -Check lab q Wednesday Hypomagnesemia 01/03/2018 08/08/2018 Hemorrhagic cystitis 01/03/2018 018 Severe muscle deconditioning 12/27/2017 02/08/2018 Overview: -- d/t prolonged illness -- improved with PT -- plan DC with OP PT Dysphagia 12/23/2017 12/29/2017 Overview: --Speech/swallow eval -- Full liquid diet (adv when pt indicates desire to eat foods). Nasal congestion 12/23/2017 12/27/2017 Overview: --Afrin nasal spray x3 days with relief Hypoxia 12/21/2017 12/28/2017 Overview: -- developed post engraftment -- required 50% VM for several days -- 12/21 CXR c/w edema and or pneumonia -- treated with IV vanc and zosyn later changed to Stephane, and aggressive diuresis with good results -- Weaned off O2 -- remained stable off Antibiotics Gross hematuria 12/08/2017 12/20/2017 Overview: -- ? etiology UC neg, BK urine neg, Urine for adenovirus neg -- treated with aggressive (BID)transfuse of plt for < 30K -- received IV hydration -- urology was consulted and he received CBI -- this resolved with engraftment and CBI was DC'd Atrial fibrillation 12/05/2017 12/09/19 Overview: -- Afib w/ RVR - New onset. CHADSVASc 2 -- treated in MICU with adenosine without success followed by amiodarone CI , metoprolol for rate control Last Assessment & Plan: - Converted back to NSR - Continue Metoprolol 50 mg q8h - no AC currently due to thrombocytopenia Acute hypoxemic respiratory failure 12/04/2017 12/09/2017 Overview: 2/2 afib with RVR and pulmonary edema -- resolved and rate controlled with metoprolol -- he then received aggressive K and mag replacement Last Assessment & Plan: - converted back to NSR. Will continue Metoprolol 50 mg q8h - lasix PRN for pulmonary edema C. difficile diarrhea 12/04/20172017 Overview: -- Treated with a 16 day course of oral Vanc to resolution -- semi formed stool at time of DC Thrombocytopenia 11/22/2017 08/16/2020 Overview: RBC transfusions for Hgb < / = 7 Platelet transfusions for PLT < / = 10K (Premeds not needed during past admission) Immunosuppression 11/22/2017 11/25/2018 Overview: --ACV, Bactrim MWF, Diflucan --IS: [place] MPN (myeloproliferative neoplasm) 04/28/2017 01/10/2020 Overview: Not requiring transfusions. 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 Will need vanco po bid on discharge (sent for prior auth). Per d/c pharmacy: Pt does not have Rx coverage. Through our discount card, copay would be $50.25. He would have to have this filled at [facility] pharmacy since its a compound. --02/04: Per Case Mgmt: Per infusion pharmacy, meropenem 1g IV q8h - self-pay cost is $66 per day. Ertapenem costs $94/day (total $1300 for full course). ID Recs: May switch to ertapenem depending on susceptibilities and pt may need copat. If switch to ertapenem, pt will need first dose in-hospital. ID anticipates discharge on Wednesday 02/07. Sepsis 02/02/2018 02/08/2018 Sepsis due to Klebsiella 02/02/2018 Bacteremia due to Klebsiella pneumoniae 02/02/2018 05/11/2018 Overview: --Pt admitted w/ fevers/chills, increased urinary frequency. TLH BCx x3 ports positive for Gram negative bacilli, Klebsiella. CTX-M type ESBL gene detected. Peripheral BCx neg. Urine Cx (in process). --Consult to ID. Consider removal of TLH. --Meropenem IV q8h. ID Recs: if unstable, add quinolone (Cipro 400 IV q12h). --Repeat cultures ordered. --ID Recs: TLH Removal. Use peripheral IV for now --02/03: BCx from 02/02 (Prelim: TLH: Red & White lumens: +Gram neg bacilli, Blue lumen: no growth 2 days, Peripheral: No growth 2 days). Urine cx from 02/01 (Prelim: + Klebsiella pneumoniae). ID Recs: Repeat peripheral BCx x2 today. U/S kidney/bladder to r/o stricture. --02/04: Plan for PICC line placement on 02/05, if BCx neg x48 hrs. (PICC orders placed). ID Recs: May switch to ertapenem depending on susceptibilities and pt may need copat. If switch to ertapenem, pt will need first dose in-hospital. ID anticipates discharge on Wednesday 02/07. Weakness 02/02/2018 08/08/2018 Overview: PT/OT Consult C. difficile colitis history 02/02/2018 09/22/2018 Overview: --C. Diff positive on 12/04/17. --ID Recs: Add PO Vanco 125 TID for CDiff prevention --02/04: Pt w/ diarrhea today. C. Diff PCR ordered. Prn Imodium. 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 -Check lab q Wednesday Hypomagnesemia 01/03/2018 08/08/2018 Hemorrhagic cystitis 01/03/2018 018 Severe muscle deconditioning 12/27/2017 02/08/2018 Overview: -- d/t prolonged illness -- improved with PT -- plan DC with OP PT Dysphagia 12/23/2017 12/29/2017 Overview: --Speech/swallow eval -- Full liquid diet (adv when pt indicates desire to eat foods). Nasal congestion 12/23/2017 12/27/2017 Overview: --Afrin nasal spray x3 days with relief Hypoxia 12/21/2017 12/28/2017 Overview: -- developed post engraftment -- required 50% VM for several days -- 12/21 CXR c/w edema and or pneumonia -- treated with IV vanc and zosyn later changed to Stephane, and aggressive diuresis with good results -- Weaned off O2 -- remained stable off Antibiotics Gross hematuria 12/08/2017 12/20/2017 Overview: -- ? etiology UC neg, BK urine neg, Urine for adenovirus neg -- treated with aggressive (BID)transfuse of plt for < 30K -- received IV hydration -- urology was consulted and he received CBI -- this resolved with engraftment and CBI was DC'd Atrial fibrillation 12/05/2017 12/09/19 Overview: -- Afib w/ RVR - New onset. CHADSVASc 2 -- treated in MICU with adenosine without success followed by amiodarone CI , metoprolol for rate control Last Assessment & Plan: - Converted back to NSR - Continue Metoprolol 50 mg q8h - no AC currently due to thrombocytopenia Acute hypoxemic respiratory failure 12/04/2017 12/09/2017 Overview: 2/2 afib with RVR and pulmonary edema -- resolved and rate controlled with metoprolol -- he then received aggressive K and mag replacement Last Assessment & Plan: - converted back to NSR. Will continue Metoprolol 50 mg q8h - lasix PRN for pulmonary edema C. difficile diarrhea 12/04/20172017 Overview: -- Treated with a 16 day course of oral Vanc to resolution -- semi formed stool at time of DC Thrombocytopenia 11/22/2017 08/16/2020 Overview: RBC transfusions for Hgb < / = 7 Platelet transfusions for PLT < / = 10K (Premeds not needed during past admission) Immunosuppression 11/22/2017 11/25/2018 Overview: --ACV, Bactrim MWF, Diflucan --IS: [place] MPN (myeloproliferative neoplasm) 04/28/2017 01/10/2020 Overview: Not requiring transfusions. 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 Will need vanco po bid on discharge (sent for prior auth). Per d/c pharmacy: Pt does not have Rx coverage. Through our discount card, copay would be $50.25. He would have to have this filled at [facility] pharmacy since its a compound. --02/04: Per Case Mgmt: Per infusion pharmacy, meropenem 1g IV q8h - self-pay cost is $66 per day. Ertapenem costs $94/day (total $1300 for full course). ID Recs: May switch to ertapenem depending on susceptibilities and pt may need copat. If switch to ertapenem, pt will need first dose in-hospital. ID anticipates discharge on Wednesday 02/07. Sepsis 02/02/2018 02/08/2018 Sepsis due to Klebsiella 02/02/2018 Bacteremia due to Klebsiella pneumoniae 02/02/2018 05/11/2018 Overview: --Pt admitted w/ fevers/chills, increased urinary frequency. TLH BCx x3 ports positive for Gram negative bacilli, Klebsiella. CTX-M type ESBL gene detected. Peripheral BCx neg. Urine Cx (in process). --Consult to ID. Consider removal of TLH. --Meropenem IV q8h. ID Recs: if unstable, add quinolone (Cipro 400 IV q12h). --Repeat cultures ordered. --ID Recs: TLH Removal. Use peripheral IV for now --02/03: BCx from 02/02 (Prelim: [facility]: Red & White lumens: +Gram neg bacilli, Blue lumen: no growth 2 days, Peripheral: No growth 2 days). Urine cx from 02/01 (Prelim: + Klebsiella pneumoniae). ID Recs: Repeat peripheral BCx x2 today. U/S kidney/bladder to r/o stricture. --02/04: Plan for PICC line placement on 02/05, if BCx neg x48 hrs. (PICC orders placed). ID Recs: May switch to ertapenem depending on susceptibilities and pt may need copat. If switch to ertapenem, pt will need first dose in-hospital. ID anticipates discharge on Wednesday 02/07. Weakness 02/02/2018 08/08/2018 Overview: PT/OT Consult C. difficile colitis history 02/02/2018 09/22/2018 Overview: --C. Diff positive on 12/04/17. --ID Recs: Add PO Vanco 125 TID for CDiff prevention --02/04: Pt w/ diarrhea today. C. Diff PCR ordered. Prn Imodium. 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 -Check lab q Wednesday Hypomagnesemia 01/03/2018 08/08/2018 Hemorrhagic cystitis 01/03/2018 018 Severe muscle deconditioning 12/27/2017 02/08/2018 Overview: -- d/t prolonged illness -- improved with PT -- plan DC with OP PT Dysphagia 12/23/2017 12/29/2017 Overview: --Speech/swallow eval -- Full liquid diet (adv when pt indicates desire to eat foods). Nasal congestion 12/23/2017 12/27/2017 Overview: --Afrin nasal spray x3 days with relief Hypoxia 12/21/2017 12/28/2017 Overview: -- developed post engraftment -- required 50% VM for several days -- 12/21 CXR c/w edema and or pneumonia -- treated with IV vanc and zosyn later changed to Stephane, and aggressive diuresis with good results -- Weaned off O2 -- remained stable off Antibiotics Gross hematuria 12/08/2017 12/20/2017 Overview: -- ? etiology UC neg, BK urine neg, Urine for adenovirus neg -- treated with aggressive (BID)transfuse of plt for < 30K -- received IV hydration -- urology was consulted and he received CBI -- this resolved with engraftment and CBI was DC'd Atrial fibrillation 12/05/2017 12/09/19 Overview: -- Afib w/ RVR - New onset. CHADSVASc 2 -- treated in MICU with adenosine without success followed by amiodarone CI , metoprolol for rate control Last Assessment & Plan: - Plavix, Atenolol 100mg. - Pt denies diagnosis. Acute hypoxemic respiratory failure 12/04/2017 12/09/2017 Overview: 2/2 afib with RVR and pulmonary edema -- resolved and rate controlled with metoprolol -- he then received aggressive K and mag replacement Last Assessment & Plan: - converted back to NSR. Will continue Metoprolol 50 mg q8h - lasix PRN for pulmonary edema C. difficile diarrhea 12/04/20172017 Overview: -- Treated with a 16 day course of oral Vanc to resolution -- semi formed stool at time of DC Thrombocytopenia 11/22/2017 08/16/2020 Overview: RBC transfusions for Hgb < / = 7 Platelet transfusions for PLT < / = 10K (Premeds not needed during past admission) Immunosuppression 11/22/2017 11/25/2018 Overview: --ACV, Bactrim MWF, Diflucan --IS: [place] MPN (myeloproliferative neoplasm) 04/28/2017 01/10/2020 Overview: Not requiring transfusions. 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 Will need vanco po bid on discharge (sent for prior auth). Per d/c pharmacy: Pt does not have Rx coverage. Through our discount card, copay would be $50.25. He would have to have this filled at [facility] pharmacy since its a compound. --02/04: Per Case Mgmt: Per infusion pharmacy, meropenem 1g IV q8h - self-pay cost is $66 per day. Ertapenem costs $94/day (total $1300 for full course). ID Recs: May switch to ertapenem depending on susceptibilities and pt may need copat. If switch to ertapenem, pt will need first dose in-hospital. ID anticipates discharge on Wednesday 02/07. Sepsis 02/02/2018 02/08/2018 Sepsis due to Klebsiella 02/02/2018 Bacteremia due to Klebsiella pneumoniae 02/02/2018 05/11/2018 Overview: --Pt admitted w/ fevers/chills, increased urinary frequency. TLH BCx x3 ports positive for Gram negative bacilli, Klebsiella. CTX-M type ESBL gene detected. Peripheral BCx neg. Urine Cx (in process). --Consult to ID. Consider removal of TLH. --Meropenem IV q8h. ID Recs: if unstable, add quinolone (Cipro 400 IV q12h). --Repeat cultures ordered. --ID Recs: TLH Removal. Use peripheral IV for now --02/03: BCx from 02/02 (Prelim: [facility]: Red & White lumens: +Gram neg bacilli, Blue lumen: no growth 2 days, Peripheral: No growth 2 days). Urine cx from 02/01 (Prelim: + Klebsiella pneumoniae). ID Recs: Repeat peripheral BCx x2 today. U/S kidney/bladder to r/o stricture. --02/04: Plan for PICC line placement on 02/05, if BCx neg x48 hrs. (PICC orders placed). ID Recs: May switch to ertapenem depending on susceptibilities and pt may need copat. If switch to ertapenem, pt will need first dose in-hospital. ID anticipates discharge on Wednesday 02/07. Weakness 02/02/2018 08/08/2018 Overview: PT/OT Consult C. difficile colitis history 02/02/2018 09/22/2018 Overview: --C. Diff positive on 12/04/17. --ID Recs: Add PO Vanco 125 TID for CDiff prevention --02/04: Pt w/ diarrhea today. C. Diff PCR ordered. Prn Imodium. 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 -Check lab q Wednesday Hypomagnesemia 01/03/2018 08/08/2018 Hemorrhagic cystitis 01/03/2018 018 Severe muscle deconditioning 12/27/2017 02/08/2018 Overview: -- d/t prolonged illness -- improved with PT -- plan DC with OP PT Dysphagia 12/23/2017 12/29/2017 Overview: --Speech/swallow eval -- Full liquid diet (adv when pt indicates desire to eat foods). Nasal congestion 12/23/2017 12/27/2017 Overview: --Afrin nasal spray x3 days with relief Hypoxia 12/21/2017 12/28/2017 Overview: -- developed post engraftment -- required 50% VM for several days -- 12/21 CXR c/w edema and or pneumonia -- treated with IV vanc and zosyn later changed to Stephane, and aggressive diuresis with good results -- Weaned off O2 -- remained stable off Antibiotics Gross hematuria 12/08/2017 12/20/2017 Overview: -- ? etiology UC neg, BK urine neg, Urine for adenovirus neg -- treated with aggressive (BID)transfuse of plt for < 30K -- received IV hydration -- urology was consulted and he received CBI -- this resolved with engraftment and CBI was DC'd Atrial fibrillation 12/05/2017 12/09/19 18 Overview: -- Afib w/ RVR - New onset. CHADSVASc 2 -- treated in MICU with adenosine without success followed by amiodarone CI , metoprolol for rate control Last Assessment & Plan: - Plavix, Atenolol 100mg. - Pt denies diagnosis. Acute hypoxemic respiratory failure 12/04/2017 12/09/2017 Overview: 2/2 afib with RVR and pulmonary edema -- resolved and rate controlled with metoprolol -- he then received aggressive K and mag replacement Last Assessment & Plan: - converted back to NSR. Will continue Metoprolol 50 mg q8h - lasix PRN for pulmonary edema C. difficile diarrhea 12/04/20172017 Overview: -- Treated with a 16 day course of oral Vanc to resolution -- semi formed stool at time of DC Thrombocytopenia 11/22/2017 08/16/2020 Overview: RBC transfusions for Hgb < / = 7 Platelet transfusions for PLT < / = 10K (Premeds not needed during past admission) Immunosuppression 11/22/2017 11/25/2018 Overview: --ACV, Bactrim MWF, Diflucan --IS: [place] MPN (myeloproliferative neoplasm) 04/28/2017 01/10/2020 Overview: Not requiring transfusions. 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 Will need vanco po bid on discharge (sent for prior auth). Per d/c pharmacy: Pt does not have Rx coverage. Through our discount card, copay would be $50.25. He would have to have this filled at [facility] pharmacy since its a compound. --02/04: Per Case Mgmt: Per infusion pharmacy, meropenem 1g IV q8h - self-pay cost is $66 per day. Ertapenem costs $94/day (total $1300 for full course). ID Recs: May switch to ertapenem depending on susceptibilities and pt may need copat. If switch to ertapenem, pt will need first dose in-hospital. ID anticipates discharge on Wednesday 02/07. Sepsis 02/02/2018 02/08/2018 Sepsis due to Klebsiella 02/02/2018 Bacteremia due to Klebsiella pneumoniae 02/02/2018 05/11/2018 Overview: --Pt admitted w/ fevers/chills, increased urinary frequency. TLH BCx x3 ports positive for Gram negative bacilli, Klebsiella. CTX-M type ESBL gene detected. Peripheral BCx neg. Urine Cx (in process). --Consult to ID. Consider removal of TLH. --Meropenem IV q8h. ID Recs: if unstable, add quinolone (Cipro 400 IV q12h). --Repeat cultures ordered. --ID Recs: TLH Removal. Use peripheral IV for now --02/03: BCx from 02/02 (Prelim: [facility]: Red & White lumens: +Gram neg bacilli, Blue lumen: no growth 2 days, Peripheral: No growth 2 days). Urine cx from 02/01 (Prelim: + Klebsiella pneumoniae). ID Recs: Repeat peripheral BCx x2 today. U/S kidney/bladder to r/o stricture. --02/04: Plan for PICC line placement on 02/05, if BCx neg x48 hrs. (PICC orders placed). ID Recs: May switch to ertapenem depending on susceptibilities and pt may need copat. If switch to ertapenem, pt will need first dose in-hospital. ID anticipates discharge on Wednesday 02/07. Weakness 02/02/2018 08/08/2018 Overview: PT/OT Consult C. difficile colitis history 02/02/2018 09/22/2018 Overview: --C. Diff positive on 12/04/17. --ID Recs: Add PO Vanco 125 TID for CDiff prevention --02/04: Pt w/ diarrhea today. C. Diff PCR ordered. Prn Imodium. 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 -Check lab q Wednesday Hypomagnesemia 01/03/2018 08/08/2018 Hemorrhagic cystitis 01/03/2018 018 Severe muscle deconditioning 12/27/2017 02/08/2018 Overview: -- d/t prolonged illness -- improved with PT -- plan DC with OP PT Dysphagia 12/23/2017 12/29/2017 Overview: --Speech/swallow eval -- Full liquid diet (adv when pt indicates desire to eat foods). Nasal congestion 12/23/2017 12/27/2017 Overview: --Afrin nasal spray x3 days with relief Hypoxia 12/21/2017 12/28/2017 Overview: -- developed post engraftment -- required 50% VM for several days -- 12/21 CXR c/w edema and or pneumonia -- treated with IV vanc and zosyn later changed to Stephane, and aggressive diuresis with good results -- Weaned off O2 -- remained stable off Antibiotics Gross hematuria 12/08/2017 12/20/2017 Overview: -- ? etiology UC neg, BK urine neg, Urine for adenovirus neg -- treated with aggressive (BID)transfuse of plt for < 30K -- received IV hydration -- urology was consulted and he received CBI -- this resolved with engraftment and CBI was DC'd Atrial fibrillation 12/05/2017 12/09/19 Overview: -- Afib w/ RVR - New onset. CHADSVASc 2 -- treated in MICU with adenosine without success followed by amiodarone CI , metoprolol for rate control Last Assessment & Plan: - Plavix, Atenolol 100mg. - Pt denies diagnosis. Acute hypoxemic respiratory failure 12/04/2017 12/09/2017 Overview: 2/2 afib with RVR and pulmonary edema -- resolved and rate controlled with metoprolol -- he then received aggressive K and mag replacement Last Assessment & Plan: - converted back to NSR. Will continue Metoprolol 50 mg q8h - lasix PRN for pulmonary edema C. difficile diarrhea 12/04/20172017 Overview: -- Treated with a 16 day course of oral Vanc to resolution -- semi formed stool at time of DC Thrombocytopenia 11/22/2017 08/16/2020 Overview: RBC transfusions for Hgb < / = 7 Platelet transfusions for PLT < / = 10K (Premeds not needed during past admission) Immunosuppression 11/22/2017 11/25/2018 Overview: --ACV, Bactrim MWF, Diflucan --IS: [place] MPN (myeloproliferative neoplasm) 04/28/2017 01/10/2020 Overview: Not requiring transfusions. 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 -- treated with empiric Zosyn -- recurrent with Cy infusion -- then afebrile on empiric Zosyn -- all cultures neg -- cxr nl -- neutropenia and fevers resolved -- Zosyn was DC'd CINV (chemotherapy-induced n ausea and vomiting) 12/20/2017 Overview: -- treated with IV antiemetics -- supported with IVF -- resolved home with prn oral ativan, and zofran for recurrence documented as of this encounter (statuses as of 07/27/2023) [facility] History of Past illness Narrative* Problem Noted Date Diagnosed Date Resolved Date Encounter for aftercare foll owing bone marrow transplant 11/17/2018 01/10/2020 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 Will need vanco po bid on discharge (sent for prior auth). Per d/c pharmacy: Pt does not have Rx coverage. Through our discount card, copay would be $50.25. He would have to have this filled at [facility] pharmacy since its a compound. --02/04: Per Case Mgmt: Per infusion pharmacy, meropenem 1g IV q8h - self-pay cost is $66 per day. Ertapenem costs $94/day (total $1300 for full course). ID Recs: May switch to ertapenem depending on susceptibilities and pt may need copat. If switch to ertapenem, pt will need first dose in-hospital. ID anticipates discharge on Wednesday 02/07. Sepsis 02/02/2018 02/08/2018 Sepsis due to Klebsiella 02/02/2018 Bacteremia due to Klebsiella pneumoniae 02/02/2018 05/11/2018 Overview: --Pt admitted w/ fevers/chills, increased urinary frequency. TLH BCx x3 ports positive for Gram negative bacilli, Klebsiella. CTX-M type ESBL gene detected. Peripheral BCx neg. Urine Cx (in process). --Consult to ID. Consider removal of TLH. --Meropenem IV q8h. ID Recs: if unstable, add quinolone (Cipro 400 IV q12h). --Repeat cultures ordered. --ID Recs: TLH Removal. Use peripheral IV for now --02/03: BCx from 02/02 (Prelim: TLH: Red & White lumens: +Gram neg bacilli, Blue lumen: no growth 2 days, Peripheral: No growth 2 days). Urine cx from 02/01 (Prelim: + Klebsiella pneumoniae). ID Recs: Repeat peripheral BCx x2 today. U/S kidney/bladder to r/o stricture. --02/04: Plan for PICC line placement on 02/05, if BCx neg x48 hrs. (PICC orders placed). ID Recs: May switch to ertapenem depending on susceptibilities and pt may need copat. If switch to ertapenem, pt will need first dose in-hospital. ID anticipates discharge on Wednesday 02/07. Weakness 02/02/2018 08/08/2018 Overview: PT/OT Consult C. difficile colitis history 02/02/2018 09/22/2018 Overview: --C. Diff positive on 12/04/17. --ID Recs: Add PO Vanco 125 TID for CDiff prevention --02/04: Pt w/ diarrhea today. C. Diff PCR ordered. Prn Imodium. 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 -Check lab q Wednesday Hypomagnesemia 01/03/2018 08/08/2018 Hemorrhagic cystitis 01/03/2018 018 Severe muscle deconditioning 12/27/2017 02/08/2018 Overview: -- d/t prolonged illness -- improved with PT -- plan DC with OP PT Dysphagia 12/23/2017 12/29/2017 Overview: --Speech/swallow eval -- Full liquid diet (adv when pt indicates desire to eat foods). Nasal congestion 12/23/2017 12/27/2017 Overview: --Afrin nasal spray x3 days with relief Hypoxia 12/21/2017 12/28/2017 Overview: -- developed post engraftment -- required 50% VM for several days -- 12/21 CXR c/w edema and or pneumonia -- treated with IV vanc and zosyn later changed to Stephane, and aggressive diuresis with good results -- Weaned off O2 -- remained stable off Antibiotics Gross hematuria 12/08/2017 12/20/2017 Overview: -- ? etiology UC neg, BK urine neg, Urine for adenovirus neg -- treated with aggressive (BID)transfuse of plt for < 30K -- received IV hydration -- urology was consulted and he received CBI -- this resolved with engraftment and CBI was DC'd Atrial fibrillation 12/05/2017 12/09/19 Overview: -- Afib w/ RVR - New onset. CHADSVASc 2 -- treated in MICU with adenosine without success followed by amiodarone CI , metoprolol for rate control Last Assessment & Plan: - Plavix, Atenolol 100mg. - Pt denies diagnosis. Acute hypoxemic respiratory failure 12/04/2017 12/09/2017 Overview: 2/2 afib with RVR and pulmonary edema -- resolved and rate controlled with metoprolol -- he then received aggressive K and mag replacement Last Assessment & Plan: - converted back to NSR. Will continue Metoprolol 50 mg q8h - lasix PRN for pulmonary edema C. difficile diarrhea 12/04/20172017 Overview: -- Treated with a 16 day course of oral Vanc to resolution -- semi formed stool at time of DC Thrombocytopenia 11/22/2017 08/16/2020 Overview: RBC transfusions for Hgb < / = 7 Platelet transfusions for PLT < / = 10K (Premeds not needed during past admission) Immunosuppression 11/22/2017 11/25/2018 Overview: --ACV, Bactrim MWF, Diflucan --IS: [place] MPN (myeloproliferative neoplasm) 04/28/2017 01/10/2020 Overview: Not requiring transfusions. 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 -- treated with empiric Zosyn -- recurrent with Cy infusion -- then afebrile on empiric Zosyn -- all cultures neg -- cxr nl -- neutropenia and fevers resolved -- Zosyn was DC'd CINV (chemotherapy-induced n ausea and vomiting) 12/20/2017 Overview: -- treated with IV antiemetics -- supported with IVF -- resolved home with prn oral ativan, and zofran for recurrence documented as of this encounter (statuses as of 08/01/2023) [facility] History of Past illness Narrative* Problem Noted Date Diagnosed Date Resolved Date Encounter for aftercare foll owing bone marrow transplant 11/17/2018 01/10/2020 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 Will need vanco po bid on discharge (sent for prior auth). Per d/c pharmacy: Pt does not have Rx coverage. Through our discount card, copay would be $50.25. He would have to have this filled at [facility] since its a compound. --02/04: Per Case Mgmt: Per infusion pharmacy, meropenem 1g IV q8h - self-pay cost is $66 per day. Ertapenem costs $94/day (total $1300 for full course). ID Recs: May switch to ertapenem depending on susceptibilities and pt may need copat. If switch to ertapenem, pt will need first dose in-hospital. ID anticipates discharge on Wednesday 02/07. Sepsis 02/02/2018 02/08/2018 Sepsis due to Klebsiella 02/02/2018 Bacteremia due to Klebsiella pneumoniae 02/02/2018 05/11/2018 Overview: --Pt admitted w/ fevers/chills, increased urinary frequency. TLH BCx x3 ports positive for Gram negative bacilli, Klebsiella. CTX-M type ESBL gene detected. Peripheral BCx neg. Urine Cx (in process). --Consult to ID. Consider removal of TLH. --Meropenem IV q8h. ID Recs: if unstable, add quinolone (Cipro 400 IV q12h). --Repeat cultures ordered. --ID Recs: TLH Removal. Use peripheral IV for now --02/03: BCx from 02/02 (Prelim: TL[facility]: Red & White lumens: +Gram neg bacilli, Blue lumen: no growth 2 days, Peripheral: No growth 2 days). Urine cx from 02/01 (Prelim: + Klebsiella pneumoniae). ID Recs: Repeat peripheral BCx x2 today. U/S kidney/bladder to r/o stricture. --02/04: Plan for PICC line placement on 02/05, if BCx neg x48 hrs. (PICC orders placed). ID Recs: May switch to ertapenem depending on susceptibilities and pt may need copat. If switch to ertapenem, pt will need first dose in-hospital. ID anticipates discharge on Wednesday 02/07. Weakness 02/02/2018 08/08/2018 Overview: PT/OT Consult C. difficile colitis history 02/02/2018 09/22/2018 Overview: --C. Diff positive on 12/04/17. --ID Recs: Add PO Vanco 125 TID for CDiff prevention --02/04: Pt w/ diarrhea today. C. Diff PCR ordered. Prn Imodium. 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 -Check lab q Wednesday Hypomagnesemia 01/03/2018 08/08/2018 Hemorrhagic cystitis 01/03/2018 018 Severe muscle deconditioning 12/27/2017 02/08/2018 Overview: -- d/t prolonged illness -- improved with PT -- plan DC with OP PT Dysphagia 12/23/2017 12/29/2017 Overview: --Speech/swallow eval -- Full liquid diet (adv when pt indicates desire to eat foods). Nasal congestion 12/23/2017 12/27/2017 Overview: --Afrin nasal spray x3 days with relief Hypoxia 12/21/2017 12/28/2017 Overview: -- developed post engraftment -- required 50% VM for several days -- 12/21 CXR c/w edema and or pneumonia -- treated with IV vanc and zosyn later changed to Stephane, and aggressive diuresis with good results -- Weaned off O2 -- remained stable off Antibiotics Gross hematuria 12/08/2017 12/20/2017 Overview: -- ? etiology UC neg, BK urine neg, Urine for adenovirus neg -- treated with aggressive (BID)transfuse of plt for < 30K -- received IV hydration -- urology was consulted and he received CBI -- this resolved with engraftment and CBI was DC'd Atrial fibrillation 12/05/2017 12/09/19 Overview: -- Afib w/ RVR - New onset. CHADSVASc 2 -- treated in MICU with adenosine without success followed by amiodarone CI , metoprolol for rate control Last Assessment & Plan: - Plavix, Atenolol 100mg. - Pt denies diagnosis. Acute hypoxemic respiratory failure 12/04/2017 12/09/2017 Overview: 2/2 afib with RVR and pulmonary edema -- resolved and rate controlled with metoprolol -- he then received aggressive K and mag replacement Last Assessment & Plan: - converted back to NSR. Will continue Metoprolol 50 mg q8h - lasix PRN for pulmonary edema C. difficile diarrhea 12/04/20172017 Overview: -- Treated with a 16 day course of oral Vanc to resolution -- semi formed stool at time of DC Thrombocytopenia 11/22/2017 08/16/2020 Overview: RBC transfusions for Hgb < / = 7 Platelet transfusions for PLT < / = 10K (Premeds not needed during past admission) Immunosuppression 11/22/2017 11/25/2018 Overview: --ACV, Bactrim MWF, Diflucan --IS: [place] MPN (myeloproliferative neoplasm) 04/28/2017 01/10/2020 Overview: Not requiring transfusions. 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 Will need vanco po bid on discharge (sent for prior auth). Per d/c pharmacy: Pt does not have Rx coverage. Through our discount card, copay would be $50.25. He would have to have this filled at [facility] pharmacy since its a compound. --02/04: Per Case Mgmt: Per infusion pharmacy, meropenem 1g IV q8h - self-pay cost is $66 per day. Ertapenem costs $94/day (total $1300 for full course). ID Recs: May switch to ertapenem depending on susceptibilities and pt may need copat. If switch to ertapenem, pt will need first dose in-hospital. ID anticipates discharge on Wednesday 02/07. Sepsis 02/02/2018 02/08/2018 Sepsis due to Klebsiella 02/02/2018 Bacteremia due to Klebsiella pneumoniae 02/02/2018 05/11/2018 Overview: --Pt admitted w/ fevers/chills, increased urinary frequency. TLH BCx x3 ports positive for Gram negative bacilli, Klebsiella. CTX-M type ESBL gene detected. Peripheral BCx neg. Urine Cx (in process). --Consult to ID. Consider removal of TLH. --Meropenem IV q8h. ID Recs: if unstable, add quinolone (Cipro 400 IV q12h). --Repeat cultures ordered. --ID Recs: TLH Removal. Use peripheral IV for now --02/03: BCx from 02/02 (Prelim: TLH: Red & White lumens: +Gram neg bacilli, Blue lumen: no growth 2 days, Peripheral: No growth 2 days). Urine cx from 02/01 (Prelim: + Klebsiella pneumoniae). ID Recs: Repeat peripheral BCx x2 today. U/S kidney/bladder to r/o stricture. --02/04: Plan for PICC line placement on 02/05, if BCx neg x48 hrs. (PICC orders placed). ID Recs: May switch to ertapenem depending on susceptibilities and pt may need copat. If switch to ertapenem, pt will need first dose in-hospital. ID anticipates discharge on Wednesday 02/07. Weakness 02/02/2018 08/08/2018 Overview: PT/OT Consult C. difficile colitis history 02/02/2018 09/22/2018 Overview: --C. Diff positive on 12/04/17. --ID Recs: Add PO Vanco 125 TID for CDiff prevention --02/04: Pt w/ diarrhea today. C. Diff PCR ordered. Prn Imodium. 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 -Check lab q Wednesday Hypomagnesemia 01/03/2018 08/08/2018 Hemorrhagic cystitis 01/03/2018 018 Severe muscle deconditioning 12/27/2017 02/08/2018 Overview: -- d/t prolonged illness -- improved with PT -- plan DC with OP PT Dysphagia 12/23/2017 12/29/2017 Overview: --Speech/swallow eval -- Full liquid diet (adv when pt indicates desire to eat foods). Nasal congestion 12/23/2017 12/27/2017 Overview: --Afrin nasal spray x3 days with relief Hypoxia 12/21/2017 12/28/2017 Overview: -- developed post engraftment -- required 50% VM for several days -- 12/21 CXR c/w edema and or pneumonia -- treated with IV vanc and zosyn later changed to Stephane, and aggressive diuresis with good results -- Weaned off O2 -- remained stable off Antibiotics Gross hematuria 12/08/2017 12/20/2017 Overview: -- ? etiology UC neg, BK urine neg, Urine for adenovirus neg -- treated with aggressive (BID)transfuse of plt for < 30K -- received IV hydration -- urology was consulted and he received CBI -- this resolved with engraftment and CBI was DC'd Atrial fibrillation 12/05/2017 12/09/19 Overview: -- Afib w/ RVR - New onset. CHADSVASc 2 -- treated in MICU with adenosine without success followed by amiodarone CI , metoprolol for rate control Last Assessment & Plan: - Plavix, Atenolol 100mg. - Pt denies diagnosis. Acute hypoxemic respiratory failure 12/04/2017 12/09/2017 Overview: 2/2 afib with RVR and pulmonary edema -- resolved and rate controlled with metoprolol -- he then received aggressive K and mag replacement Last Assessment & Plan: - converted back to NSR. Will continue Metoprolol 50 mg q8h - lasix PRN for pulmonary edema C. difficile diarrhea 12/04/20172017 Overview: -- Treated with a 16 day course of oral Vanc to resolution -- semi formed stool at time of DC Thrombocytopenia 11/22/2017 08/16/2020 Overview: RBC transfusions for Hgb < / = 7 Platelet transfusions for PLT < / = 10K (Premeds not needed during past admission) Immunosuppression 11/22/2017 11/25/2018 Overview: --ACV, Bactrim MWF, Diflucan --IS: [place] MPN (myeloproliferative neoplasm) 04/28/2017 01/10/2020 Overview: Not requiring transfusions. 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 Will need vanco po bid on discharge (sent for prior auth). Per d/c pharmacy: Pt does not have Rx coverage. Through our discount card, copay would be $50.25. He would have to have this filled at [facility] pharmacy since its a compound. --02/04: Per Case Mgmt: Per infusion pharmacy, meropenem 1g IV q8h - self-pay cost is $66 per day. Ertapenem costs $94/day (total $1300 for full course). ID Recs: May switch to ertapenem depending on susceptibilities and pt may need copat. If switch to ertapenem, pt will need first dose in-hospital. ID anticipates discharge on Wednesday 02/07. Sepsis 02/02/2018 02/08/2018 Sepsis due to Klebsiella 02/02/2018 Bacteremia due to Klebsiella pneumoniae 02/02/2018 05/11/2018 Overview: --Pt admitted w/ fevers/chills, increased urinary frequency. TLH BCx x3 ports positive for Gram negative bacilli, Klebsiella. CTX-M type ESBL gene detected. Peripheral BCx neg. Urine Cx (in process). --Consult to ID. Consider removal of TLH. --Meropenem IV q8h. ID Recs: if unstable, add quinolone (Cipro 400 IV q12h). --Repeat cultures ordered. --ID Recs: TLH Removal. Use peripheral IV for now --02/03: BCx from 02/02 (Prelim: TLH: Red & White lumens: +Gram neg bacilli, Blue lumen: no growth 2 days, Peripheral: No growth 2 days). Urine cx from 02/01 (Prelim: + Klebsiella pneumoniae). ID Recs: Repeat peripheral BCx x2 today. U/S kidney/bladder to r/o stricture. --02/04: Plan for PICC line placement on 02/05, if BCx neg x48 hrs. (PICC orders placed). ID Recs: May switch to ertapenem depending on susceptibilities and pt may need copat. If switch to ertapenem, pt will need first dose in-hospital. ID anticipates discharge on Wednesday 02/07. Weakness 02/02/2018 08/08/2018 Overview: PT/OT Consult C. difficile colitis history 02/02/2018 09/22/2018 Overview: --C. Diff positive on 12/04/17. --ID Recs: Add PO Vanco 125 TID for CDiff prevention --02/04: Pt w/ diarrhea today. C. Diff PCR ordered. Prn Imodium. 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 -Check lab q Wednesday Hypomagnesemia 01/03/2018 08/08/2018 Hemorrhagic cystitis 01/03/2018 018 Severe muscle deconditioning 12/27/2017 02/08/2018 Overview: -- d/t prolonged illness -- improved with PT -- plan DC with OP PT Dysphagia 12/23/2017 12/29/2017 Overview: --Speech/swallow eval -- Full liquid diet (adv when pt indicates desire to eat foods). Nasal congestion 12/23/2017 12/27/2017 Overview: --Afrin nasal spray x3 days with relief Hypoxia 12/21/2017 12/28/2017 Overview: -- developed post engraftment -- required 50% VM for several days -- 12/21 CXR c/w edema and or pneumonia -- treated with IV vanc and zosyn later changed to Stephane, and aggressive diuresis with good results -- Weaned off O2 -- remained stable off Antibiotics Gross hematuria 12/08/2017 12/20/2017 Overview: -- ? etiology UC neg, BK urine neg, Urine for adenovirus neg -- treated with aggressive (BID)transfuse of plt for < 30K -- received IV hydration -- urology was consulted and he received CBI -- this resolved with engraftment and CBI was DC'd Atrial fibrillation 12/05/2017 12/09/19 Overview: -- Afib w/ RVR - New onset. CHADSVASc 2 -- treated in MICU with adenosine without success followed by amiodarone CI , metoprolol for rate control Last Assessment & Plan: - Plavix, Atenolol 100mg. - Pt denies diagnosis. Acute hypoxemic respiratory failure 12/04/2017 12/09/2017 Overview: 2/2 afib with RVR and pulmonary edema -- resolved and rate controlled with metoprolol -- he then received aggressive K and mag replacement Last Assessment & Plan: - converted back to NSR. Will continue Metoprolol 50 mg q8h - lasix PRN for pulmonary edema C. difficile diarrhea 12/04/20172017 Overview: -- Treated with a 16 day course of oral Vanc to resolution -- semi formed stool at time of DC Thrombocytopenia 11/22/2017 08/16/2020 Overview: RBC transfusions for Hgb < / = 7 Platelet transfusions for PLT < / = 10K (Premeds not needed during past admission) Immunosuppression 11/22/2017 11/25/2018 Overview: --ACV, Bactrim MWF, Diflucan --IS: [place] MPN (myeloproliferative neoplasm) 04/28/2017 01/10/2020 Overview: Not requiring transfusions. 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 Will need vanco po bid on discharge (sent for prior auth). Per d/c pharmacy: Pt does not have Rx coverage. Through our discount card, copay would be $50.25. He would have to have this filled at [facility] pharmacy since its a compound. --02/04: Per Case Mgmt: Per infusion pharmacy, meropenem 1g IV q8h - self-pay cost is $66 per day. Ertapenem costs $94/day (total $1300 for full course). ID Recs: May switch to ertapenem depending on susceptibilities and pt may need copat. If switch to ertapenem, pt will need first dose in-hospital. ID anticipates discharge on Wednesday 02/07. Sepsis 02/02/2018 02/08/2018 Sepsis due to Klebsiella 02/02/2018 Bacteremia due to Klebsiella pneumoniae 02/02/2018 05/11/2018 Overview: --Pt admitted w/ fevers/chills, increased urinary frequency. TLH BCx x3 ports positive for Gram negative bacilli, Klebsiella. CTX-M type ESBL gene detected. Peripheral BCx neg. Urine Cx (in process). --Consult to ID. Consider removal of TLH. --Meropenem IV q8h. ID Recs: if unstable, add quinolone (Cipro 400 IV q12h). --Repeat cultures ordered. --ID Recs: TLH Removal. Use peripheral IV for now --02/03: BCx from 02/02 (Prelim: TLH: Red & White lumens: +Gram neg bacilli, Blue lumen: no growth 2 days, Peripheral: No growth 2 days). Urine cx from 02/01 (Prelim: + Klebsiella pneumoniae). ID Recs: Repeat peripheral BCx x2 today. U/S kidney/bladder to r/o stricture. --02/04: Plan for PICC line placement on 02/05, if BCx neg x48 hrs. (PICC orders placed). ID Recs: May switch to ertapenem depending on susceptibilities and pt may need copat. If switch to ertapenem, pt will need first dose in-hospital. ID anticipates discharge on Wednesday 02/07. Weakness 02/02/2018 08/08/2018 Overview: PT/OT Consult C. difficile colitis history 02/02/2018 09/22/2018 Overview: --C. Diff positive on 12/04/17. --ID Recs: Add PO Vanco 125 TID for CDiff prevention --02/04: Pt w/ diarrhea today. C. Diff PCR ordered. Prn Imodium. 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 -Check lab q Wednesday Hypomagnesemia 01/03/2018 08/08/2018 Hemorrhagic cystitis 01/03/2018 018 Severe muscle deconditioning 12/27/2017 02/08/2018 Overview: -- d/t prolonged illness -- improved with PT -- plan DC with OP PT Dysphagia 12/23/2017 12/29/2017 Overview: --Speech/swallow eval -- Full liquid diet (adv when pt indicates desire to eat foods). Nasal congestion 12/23/2017 12/27/2017 Overview: --Afrin nasal spray x3 days with relief Hypoxia 12/21/2017 12/28/2017 Overview: -- developed post engraftment -- required 50% VM for several days -- 12/21 CXR c/w edema and or pneumonia -- treated with IV vanc and zosyn later changed to Stephane, and aggressive diuresis with good results -- Weaned off O2 -- remained stable off Antibiotics Gross hematuria 12/08/2017 12/20/2017 Overview: -- ? etiology UC neg, BK urine neg, Urine for adenovirus neg -- treated with aggressive (BID)transfuse of plt for < 30K -- received IV hydration -- urology was consulted and he received CBI -- this resolved with engraftment and CBI was DC'd Atrial fibrillation 12/05/2017 12/09/19 Overview: -- Afib w/ RVR - New onset. CHADSVASc 2 -- treated in MICU with adenosine without success followed by amiodarone CI , metoprolol for rate control Last Assessment & Plan: - Plavix, Atenolol 100mg. - Pt denies diagnosis. Acute hypoxemic respiratory failure 12/04/2017 12/09/2017 Overview: 2/2 afib with RVR and pulmonary edema -- resolved and rate controlled with metoprolol -- he then received aggressive K and mag replacement Last Assessment & Plan: - converted back to NSR. Will continue Metoprolol 50 mg q8h - lasix PRN for pulmonary edema C. difficile diarrhea 12/04/20172017 Overview: -- Treated with a 16 day course of oral Vanc to resolution -- semi formed stool at time of DC Thrombocytopenia 11/22/2017 08/16/2020 Overview: RBC transfusions for Hgb < / = 7 Platelet transfusions for PLT < / = 10K (Premeds not needed during past admission) Immunosuppression 11/22/2017 11/25/2018 Overview: --ACV, Bactrim MWF, Diflucan --IS: [place] MPN (myeloproliferative neoplasm) 04/28/2017 01/10/2020 Overview: Not requiring transfusions. 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 Will need vanco po bid on discharge (sent for prior auth). Per d/c pharmacy: Pt does not have Rx coverage. Through our discount card, copay would be $50.25. He would have to have this filled at [facility] since its a compound. --02/04: Per Case Mgmt: Per infusion pharmacy, meropenem 1g IV q8h - self-pay cost is $66 per day. Ertapenem costs $94/day (total $1300 for full course). ID Recs: May switch to ertapenem depending on susceptibilities and pt may need copat. If switch to ertapenem, pt will need first dose in-hospital. ID anticipates discharge on Wednesday 02/07. Sepsis 02/02/2018 02/08/2018 Sepsis due to Klebsiella 02/02/2018 Bacteremia due to Klebsiella pneumoniae 02/02/2018 05/11/2018 Overview: --Pt admitted w/ fevers/chills, increased urinary frequency. TLH BCx x3 ports positive for Gram negative bacilli, Klebsiella. CTX-M type ESBL gene detected. Peripheral BCx neg. Urine Cx (in process). --Consult to ID. Consider removal of TLH. --Meropenem IV q8h. ID Recs: if unstable, add quinolone (Cipro 400 IV q12h). --Repeat cultures ordered. --ID Recs: TLH Removal. Use peripheral IV for now --02/03: BCx from 02/02 (Prelim: TLH: Red & White lumens: +Gram neg bacilli, Blue lumen: no growth 2 days, Peripheral: No growth 2 days). Urine cx from 02/01 (Prelim: + Klebsiella pneumoniae). ID Recs: Repeat peripheral BCx x2 today. U/S kidney/bladder to r/o stricture. --02/04: Plan for PICC line placement on 02/05, if BCx neg x48 hrs. (PICC orders placed). ID Recs: May switch to ertapenem depending on susceptibilities and pt may need copat. If switch to ertapenem, pt will need first dose in-hospital. ID anticipates discharge on Wednesday 02/07. Weakness 02/02/2018 08/08/2018 Overview: PT/OT Consult C. difficile colitis history 02/02/2018 09/22/2018 Overview: --C. Diff positive on 12/04/17. --ID Recs: Add PO Vanco 125 TID for CDiff prevention --02/04: Pt w/ diarrhea today. C. Diff PCR ordered. Prn Imodium. 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 -Check lab q Wednesday Hypomagnesemia 01/03/2018 08/08/2018 Hemorrhagic cystitis 01/03/2018 018 Severe muscle deconditioning 12/27/2017 02/08/2018 Overview: -- d/t prolonged illness -- improved with PT -- plan DC with OP PT Dysphagia 12/23/2017 12/29/2017 Overview: --Speech/swallow eval -- Full liquid diet (adv when pt indicates desire to eat foods). Nasal congestion 12/23/2017 12/27/2017 Overview: --Afrin nasal spray x3 days with relief Hypoxia 12/21/2017 12/28/2017 Overview: -- developed post engraftment -- required 50% VM for several days -- 12/21 CXR c/w edema and or pneumonia -- treated with IV vanc and zosyn later changed to Stephane, and aggressive diuresis with good results -- Weaned off O2 -- remained stable off Antibiotics Gross hematuria 12/08/2017 12/20/2017 Overview: -- ? etiology UC neg, BK urine neg, Urine for adenovirus neg -- treated with aggressive (BID)transfuse of plt for < 30K -- received IV hydration -- urology was consulted and he received CBI -- this resolved with engraftment and CBI was DC'd Atrial fibrillation 12/05/2017 12/09/19 Overview: -- Afib w/ RVR - New onset. CHADSVASc 2 -- treated in MICU with adenosine without success followed by amiodarone CI , metoprolol for rate control Last Assessment & Plan: - Plavix, Atenolol 100mg. - Pt denies diagnosis. Acute hypoxemic respiratory failure 12/04/2017 12/09/2017 Overview: 2/2 afib with RVR and pulmonary edema -- resolved and rate controlled with metoprolol -- he then received aggressive K and mag replacement Last Assessment & Plan: - converted back to NSR. Will continue Metoprolol 50 mg q8h - lasix PRN for pulmonary edema C. difficile diarrhea 12/04/20172017 Overview: -- Treated with a 16 day course of oral Vanc to resolution -- semi formed stool at time of DC Thrombocytopenia 11/22/2017 08/16/2020 Overview: RBC transfusions for Hgb < / = 7 Platelet transfusions for PLT < / = 10K (Premeds not needed during past admission) Immunosuppression 11/22/2017 11/25/2018 Overview: --ACV, Bactrim MWF, Diflucan --IS: [place] MPN (myeloproliferative neoplasm) 04/28/2017 01/10/2020 Overview: Not requiring transfusions. 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 Will need vanco po bid on discharge (sent for prior auth). Per d/c pharmacy: Pt does not have Rx coverage. Through our discount card, copay would be $50.25. He would have to have this filled at [facility] since its a compound. --02/04: Per Case Mgmt: Per infusion pharmacy, meropenem 1g IV q8h - self-pay cost is $66 per day. Ertapenem costs $94/day (total $1300 for full course). ID Recs: May switch to ertapenem depending on susceptibilities and pt may need copat. If switch to ertapenem, pt will need first dose in-hospital. ID anticipates discharge on Wednesday 02/07. Sepsis 02/02/2018 02/08/2018 Sepsis due to Klebsiella 02/02/2018 Bacteremia due to Klebsiella pneumoniae 02/02/2018 05/11/2018 Overview: --Pt admitted w/ fevers/chills, increased urinary frequency. TLH BCx x3 ports positive for Gram negative bacilli, Klebsiella. CTX-M type ESBL gene detected. Peripheral BCx neg. Urine Cx (in process). --Consult to ID. Consider removal of TLH. --Meropenem IV q8h. ID Recs: if unstable, add quinolone (Cipro 400 IV q12h). --Repeat cultures ordered. --ID Recs: TLH Removal. Use peripheral IV for now --02/03: BCx from 02/02 (Prelim: TLH: Red & White lumens: +Gram neg bacilli, Blue lumen: no growth 2 days, Peripheral: No growth 2 days). Urine cx from 02/01 (Prelim: + Klebsiella pneumoniae). ID Recs: Repeat peripheral BCx x2 today. U/S kidney/bladder to r/o stricture. --02/04: Plan for PICC line placement on 02/05, if BCx neg x48 hrs. (PICC orders placed). ID Recs: May switch to ertapenem depending on susceptibilities and pt may need copat. If switch to ertapenem, pt will need first dose in-hospital. ID anticipates discharge on Wednesday 02/07. Weakness 02/02/2018 08/08/2018 Overview: PT/OT Consult C. difficile colitis history 02/02/2018 09/22/2018 Overview: --C. Diff positive on 12/04/17. --ID Recs: Add PO Vanco 125 TID for CDiff prevention --02/04: Pt w/ diarrhea today. C. Diff PCR ordered. Prn Imodium. 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 -Check lab q Wednesday Hypomagnesemia 01/03/2018 08/08/2018 Hemorrhagic cystitis 01/03/2018 018 Severe muscle deconditioning 12/27/2017 02/08/2018 Overview: -- d/t prolonged illness -- improved with PT -- plan DC with OP PT Dysphagia 12/23/2017 12/29/2017 Overview: --Speech/swallow eval -- Full liquid diet (adv when pt indicates desire to eat foods). Nasal congestion 12/23/2017 12/27/2017 Overview: --Afrin nasal spray x3 days with relief Hypoxia 12/21/2017 12/28/2017 Overview: -- developed post engraftment -- required 50% VM for several days -- 12/21 CXR c/w edema and or pneumonia -- treated with IV vanc and zosyn later changed to Stephane, and aggressive diuresis with good results -- Weaned off O2 -- remained stable off Antibiotics Gross hematuria 12/08/2017 12/20/2017 Overview: -- ? etiology UC neg, BK urine neg, Urine for adenovirus neg -- treated with aggressive (BID)transfuse of plt for < 30K -- received IV hydration -- urology was consulted and he received CBI -- this resolved with engraftment and CBI was DC'd Atrial fibrillation 12/05/2017 12/09/19 18 Overview: -- Afib w/ RVR - New onset. CHADSVASc 2 -- treated in MICU with adenosine without success followed by amiodarone CI , metoprolol for rate control Last Assessment & Plan: - Plavix, Atenolol 100mg. - Pt denies diagnosis. Acute hypoxemic respiratory failure 12/04/2017 12/09/2017 Overview: 2/2 afib with RVR and pulmonary edema -- resolved and rate controlled with metoprolol -- he then received aggressive K and mag replacement Last Assessment & Plan: - converted back to NSR. Will continue Metoprolol 50 mg q8h - lasix PRN for pulmonary edema C. difficile diarrhea 12/04/20172017 Overview: -- Treated with a 16 day course of oral Vanc to resolution -- semi formed stool at time of DC Thrombocytopenia 11/22/2017 08/16/2020 Overview: RBC transfusions for Hgb < / = 7 Platelet transfusions for PLT < / = 10K (Premeds not needed during past admission) Immunosuppression 11/22/2017 11/25/2018 Overview: --ACV, Bactrim MWF, Diflucan --IS: [place] MPN (myeloproliferative neoplasm) 04/28/2017 01/10/2020 Overview: Not requiring transfusions. 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 Will need vanco po bid on discharge (sent for prior auth). Per d/c pharmacy: Pt does not have Rx coverage. Through our discount card, copay would be $50.25. He would have to have this filled at [facility] pharmacy since its a compound. --02/04: Per Case Mgmt: Per infusion pharmacy, meropenem 1g IV q8h - self-pay cost is $66 per day. Ertapenem costs $94/day (total $1300 for full course). ID Recs: May switch to ertapenem depending on susceptibilities and pt may need copat. If switch to ertapenem, pt will need first dose in-hospital. ID anticipates discharge on Wednesday 02/07. Sepsis 02/02/2018 02/08/2018 Sepsis due to Klebsiella 02/02/2018 Bacteremia due to Klebsiella pneumoniae 02/02/2018 05/11/2018 Overview: --Pt admitted w/ fevers/chills, increased urinary frequency. TLH BCx x3 ports positive for Gram negative bacilli, Klebsiella. CTX-M type ESBL gene detected. Peripheral BCx neg. Urine Cx (in process). --Consult to ID. Consider removal of TLH. --Meropenem IV q8h. ID Recs: if unstable, add quinolone (Cipro 400 IV q12h). --Repeat cultures ordered. --ID Recs: TLH Removal. Use peripheral IV for now --02/03: BCx from 02/02 (Prelim: TL[facility]: Red & White lumens: +Gram neg bacilli, Blue lumen: no growth 2 days, Peripheral: No growth 2 days). Urine cx from 02/01 (Prelim: + Klebsiella pneumoniae). ID Recs: Repeat peripheral BCx x2 today. U/S kidney/bladder to r/o stricture. --02/04: Plan for PICC line placement on 02/05, if BCx neg x48 hrs. (PICC orders placed). ID Recs: May switch to ertapenem depending on susceptibilities and pt may need copat. If switch to ertapenem, pt will need first dose in-hospital. ID anticipates discharge on Wednesday 02/07. Weakness 02/02/2018 08/08/2018 Overview: PT/OT Consult C. difficile colitis history 02/02/2018 09/22/2018 Overview: --C. Diff positive on 12/04/17. --ID Recs: Add PO Vanco 125 TID for CDiff prevention --02/04: Pt w/ diarrhea today. C. Diff PCR ordered. Prn Imodium. 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 -Check lab q Wednesday Hypomagnesemia 01/03/2018 08/08/2018 Hemorrhagic cystitis 01/03/2018 018 Severe muscle deconditioning 12/27/2017 02/08/2018 Overview: -- d/t prolonged illness -- improved with PT -- plan DC with OP PT Dysphagia 12/23/2017 12/29/2017 Overview: --Speech/swallow eval -- Full liquid diet (adv when pt indicates desire to eat foods). Nasal congestion 12/23/2017 12/27/2017 Overview: --Afrin nasal spray x3 days with relief Hypoxia 12/21/2017 12/28/2017 Overview: -- developed post engraftment -- required 50% VM for several days -- 12/21 CXR c/w edema and or pneumonia -- treated with IV vanc and zosyn later changed to Stephane, and aggressive diuresis with good results -- Weaned off O2 -- remained stable off Antibiotics Gross hematuria 12/08/2017 12/20/2017 Overview: -- ? etiology UC neg, BK urine neg, Urine for adenovirus neg -- treated with aggressive (BID)transfuse of plt for < 30K -- received IV hydration -- urology was consulted and he received CBI -- this resolved with engraftment and CBI was DC'd Atrial fibrillation 12/05/2017 12/09/19 Overview: -- Afib w/ RVR - New onset. CHADSVASc 2 -- treated in MICU with adenosine without success followed by amiodarone CI , metoprolol for rate control Last Assessment & Plan: - Plavix, Atenolol 100mg. - Pt denies diagnosis. Acute hypoxemic respiratory failure 12/04/2017 12/09/2017 Overview: 2/2 afib with RVR and pulmonary edema -- resolved and rate controlled with metoprolol -- he then received aggressive K and mag replacement Last Assessment & Plan: - converted back to NSR. Will continue Metoprolol 50 mg q8h - lasix PRN for pulmonary edema C. difficile diarrhea 12/04/20172017 Overview: -- Treated with a 16 day course of oral Vanc to resolution -- semi formed stool at time of DC Thrombocytopenia 11/22/2017 08/16/2020 Overview: RBC transfusions for Hgb < / = 7 Platelet transfusions for PLT < / = 10K (Premeds not needed during past admission) Immunosuppression 11/22/2017 11/25/2018 Overview: --ACV, Bactrim MWF, Diflucan --IS: [place] MPN (myeloproliferative neoplasm) 04/28/2017 01/10/2020 Overview: Not requiring transfusions. 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 -- treated with empiric Zosyn -- recurrent with Cy infusion -- then afebrile on empiric Zosyn -- all cultures neg -- cxr nl -- neutropenia and fevers resolved -- Zosyn was DC'd CINV (chemotherapy-induced n ausea and vomiting) 12/20/2017 Overview: -- treated with IV antiemetics -- supported with IVF -- resolved home with prn oral ativan, and zofran for recurrence documented as of this encounter (statuses as of 11/04/2023) [facility] of Past illness Narrative* Problem Noted Date Diagnosed Date Resolved Date Encounter for aftercare foll owing bone marrow transplant 11/17/2018 01/10/2020 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 Will need vanco po bid on discharge (sent for prior auth). Per d/c pharmacy: Pt does not have Rx coverage. Through our discount card, copay would be $50.25. He would have to have this filled at [facility] pharmacy since its a compound. --02/04: Per Case Mgmt: Per infusion pharmacy, meropenem 1g IV q8h - self-pay cost is $66 per day. Ertapenem costs $94/day (total $1300 for full course). ID Recs: May switch to ertapenem depending on susceptibilities and pt may need copat. If switch to ertapenem, pt will need first dose in-hospital. ID anticipates discharge on Wednesday 02/07. Sepsis 02/02/2018 02/08/2018 Sepsis due to Klebsiella 02/02/2018 Bacteremia due to Klebsiella pneumoniae 02/02/2018 05/11/2018 Overview: --Pt admitted w/ fevers/chills, increased urinary frequency. TLH BCx x3 ports positive for Gram negative bacilli, Klebsiella. CTX-M type ESBL gene detected. Peripheral BCx neg. Urine Cx (in process). --Consult to ID. Consider removal of TLH. --Meropenem IV q8h. ID Recs: if unstable, add quinolone (Cipro 400 IV q12h). --Repeat cultures ordered. --ID Recs: TLH Removal. Use peripheral IV for now --02/03: BCx from 02/02 (Prelim: TL[facility]: Red & White lumens: +Gram neg bacilli, Blue lumen: no growth 2 days, Peripheral: No growth 2 days). Urine cx from 02/01 (Prelim: + Klebsiella pneumoniae). ID Recs: Repeat peripheral BCx x2 today. U/S kidney/bladder to r/o stricture. --02/04: Plan for PICC line placement on 02/05, if BCx neg x48 hrs. (PICC orders placed). ID Recs: May switch to ertapenem depending on susceptibilities and pt may need copat. If switch to ertapenem, pt will need first dose in-hospital. ID anticipates discharge on Wednesday 02/07. Weakness 02/02/2018 08/08/2018 Overview: PT/OT Consult C. difficile colitis history 02/02/2018 09/22/2018 Overview: --C. Diff positive on 12/04/17. --ID Recs: Add PO Vanco 125 TID for CDiff prevention --02/04: Pt w/ diarrhea today. C. Diff PCR ordered. Prn Imodium. 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 -Check lab q Wednesday Hypomagnesemia 01/03/2018 08/08/2018 Hemorrhagic cystitis 01/03/2018 018 Severe muscle deconditioning 12/27/2017 02/08/2018 Overview: -- d/t prolonged illness -- improved with PT -- plan DC with OP PT Dysphagia 12/23/2017 12/29/2017 Overview: --Speech/swallow eval -- Full liquid diet (adv when pt indicates desire to eat foods). Nasal congestion 12/23/2017 12/27/2017 Overview: --Afrin nasal spray x3 days with relief Hypoxia 12/21/2017 12/28/2017 Overview: -- developed post engraftment -- required 50% VM for several days -- 12/21 CXR c/w edema and or pneumonia -- treated with IV vanc and zosyn later changed to Stephane, and aggressive diuresis with good results -- Weaned off O2 -- remained stable off Antibiotics Gross hematuria 12/08/2017 12/20/2017 Overview: -- ? etiology UC neg, BK urine neg, Urine for adenovirus neg -- treated with aggressive (BID)transfuse of plt for < 30K -- received IV hydration -- urology was consulted and he received CBI -- this resolved with engraftment and CBI was DC'd Atrial fibrillation 12/05/2017 12/09/19 Overview: -- Afib w/ RVR - New onset. CHADSVASc 2 -- treated in MICU with adenosine without success followed by amiodarone CI , metoprolol for rate control Last Assessment & Plan: - Plavix, Atenolol 100mg. - Pt denies diagnosis. Acute hypoxemic respiratory failure 12/04/2017 12/09/2017 Overview: 2/2 afib with RVR and pulmonary edema -- resolved and rate controlled with metoprolol -- he then received aggressive K and mag replacement Last Assessment & Plan: - converted back to NSR. Will continue Metoprolol 50 mg q8h - lasix PRN for pulmonary edema C. difficile diarrhea 12/04/20172017 Overview: -- Treated with a 16 day course of oral Vanc to resolution -- semi formed stool at time of DC Thrombocytopenia 11/22/2017 08/16/2020 Overview: RBC transfusions for Hgb < / = 7 Platelet transfusions for PLT < / = 10K (Premeds not needed during past admission) Immunosuppression 11/22/2017 11/25/2018 Overview: --ACV, Bactrim MWF, Diflucan --IS: [place] MPN (myeloproliferative neoplasm) 04/28/2017 01/10/2020 Overview: Not requiring transfusions. 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 -- treated with empiric Zosyn -- recurrent with Cy infusion -- then afebrile on empiric Zosyn -- all cultures neg -- cxr nl -- neutropenia and fevers resolved -- Zosyn was DC'd CINV (chemotherapy-induced n ausea and vomiting) 12/20/2017 Overview: -- treated with IV antiemetics -- supported with IVF -- resolved home with prn oral ativan, and zofran for recurrence documented as of this encounter (statuses as of 11/05/2023) [facility] No data available for this section [facility] Evaluation note* Diagnosis Skin lesion- Primary Unspecified disorder of skin and subcutaneous tissue Prediabetes Other abnormal glucose Primary hypertension Unspecified essential hypertension Mixed hyperlipidemia CML (chronic myeloid leukemia) (HCC) Chronic myeloid leukemia, without mention of having achieved remission 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 Benign prostatic hyperplasia without lower urinary tract symptoms documented in this encounter [facility] note* Diagnosis GABRIELA (acute kidney injury) (HCC)- Primary Acute kidney failure, unspecified documented in this encounter [facility] note* Diagnosis Electrolyte and fluid disorder- Primary Electrolyte and fluid disorders not elsewhere classified 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 (chronic myeloid leukemia) (HCC) Chronic myeloid leukemia, without mention of having achieved remission Mixed hyperlipidemia PAD (peripheral artery disease) (HCC) Peripheral vascular disease, unspecified Primary hypertension Unspecified essential hypertension Prediabetes Other abnormal glucose documented in this encounter [facility] noteNo assessment information availableWLouis [facility] Work Phone: Evaluation note* Diagnosis Prediabetes- Primary Other abnormal glucose Mixed hyperlipidemia Primary hypertension Unspecified essential hypertension documented in this encounter [facility] note* Diagnosis Hypertension, essential- Primary Unspecified essential hypertension documented in this encounter [facility] note* Diagnosis Tobacco use- Primary Tobacco use disorder Encounter for smoking cessation counseling Counseling on substance use and abuse documented in this encounter [facility] note* Diagnosis Mixed hyperlipidemia- Primary Prediabetes Other abnormal glucose documented in this encounter [facility] note* Diagnosis GABRIELA (acute kidney injury) (HCC)- Primary Acute kidney failure, unspecified Primary hypertension Unspecified essential hypertension Mixed hyperlipidemia PAD (peripheral artery disease) (HCC) Peripheral vascular disease, unspecified Benign prostatic hyperplasia without lower urinary tract symptoms Prediabetes Other abnormal glucose CML (chronic myeloid leukemia) (HCC) Chronic myeloid leukemia, without mention of having achieved remission 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 MPN (myeloproliferative neoplasm) (HCC) Neoplasm of uncertain behavior of other lymphatic and hematopoietic tissues [facility] Smoker- Primary Tobacco use disorder Encounter for screening for malignant neoplasm of lung [facility] [place] [facility]* Diagnosis Benign prostatic hyperplasia with lower urinary tract symptoms, symptom details unspecified- Primary Gross hematuria CML (chronic myeloid leukemia) (HCC) Chronic myeloid leukemia, without mention of having achieved remission Screening for genitourinary condition Screening for other and unspecified genitourinary condition [facility] Lung nodules- Primary Other nonspecific abnormal finding of lung field Encounter for screening for malignant neoplasm of lung Smoker Tobacco use disorder Coronary artery calcification seen on CT scan [facility] [place] [facility]* Diagnosis Smoker Tobacco use disorder Encounter for screening for malignant neoplasm of lung [facility] [place] [facility]* Diagnosis BPH with obstruction/lower urinary tract symptoms- Primary Hypertrophy of prostate with urinary obstruction and other lower urinary tract symptoms (LUTS) Gross hematuria [facility] [place] [facility]* Diagnosis Benign prostatic hyperplasia with lower urinary tract symptoms, symptom details unspecified Gross hematuria Bladder mass Other specified disorders of bladder [facility] [place] [facility]* Diagnosis Primary hypertension- Primary Unspecified essential hypertension Mixed hyperlipidemia PAD (peripheral artery disease) (HCC) Peripheral vascular disease, unspecified Atrial fibrillation, unspecified type (HCC) Stage 3 chronic kidney disease, unspecified whether stage 3a or 3b CKD (HCC) Preop examination Preoperative examination, unspecified Prediabetes Other abnormal glucose Bladder mass [N32.89] Other specified disorders of bladder Bladder mass Other specified disorders of bladder [facility] [place] [facility]* Diagnosis Normocytic anemia due to blood loss- Primary Iron deficiency anemia secondary to blood loss (chronic) [facility] [place] [facility]* Diagnosis Primary hypertension- Primary Unspecified essential hypertension Mixed hyperlipidemia Stage 3a chronic kidney disease (HCC) Bladder mass Other specified disorders of bladder Hematuria, unspecified type Prediabetes Other abnormal glucose CML (chronic myeloid leukemia) (HCC) Chronic myeloid leukemia, without mention of having achieved remission 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 Benign prostatic hyperplasia without lower urinary tract symptoms MPN (myeloproliferative neoplasm) (HCC) Neoplasm of uncertain behavior of other lymphatic and hematopoietic tissues [facility] [place] [facility]* Diagnosis Malignant neoplasm of urinary bladder, unspecified site (HCC)- Primary Dysuria [facility] [place] [facility]* Diagnosis Malignant neoplasm of other specified sites of bladder (HCC)- Primary Malignant neoplasm of other specified sites of bladder [facility] [place] [facility] Diagnosis Malignant neoplasm of other specified sites of bladder (HCC)- Primary Malignant neoplasm of other specified sites of bladder [facility] [place] [facility]* Diagnosis Malignant neoplasm of other specified sites of bladder (HCC)- Primary Malignant neoplasm of other specified sites of bladder [facility] [place] [facility]* Diagnosis Malignant neoplasm of urinary bladder, unspecified site (HCC)- Primary [facility] [place] [facility]* Diagnosis Malignant neoplasm of urinary bladder, unspecified site (HCC)- Primary [facility] [place] [facility]* Diagnosis Malignant neoplasm of urinary bladder, unspecified site (HCC)- Primary [facility] [place] [facility]* Diagnosis Primary hypertension- Primary Unspecified essential hypertension Mixed hyperlipidemia Stage 3a chronic kidney disease (HCC) Prediabetes Other abnormal glucose Malignant neoplasm of urinary bladder, unspecified site (HCC) Normocytic anemia due to blood loss 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) Chronic myeloid leukemia, without mention of having achieved remission MPN (myeloproliferative neoplasm) (HCC) Neoplasm of uncertain behavior of other lymphatic and hematopoietic tissues 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 Benign prostatic hyperplasia without lower urinary tract symptoms PAD (peripheral artery disease) (HCC) Peripheral vascular disease, unspecified Vitamin D insufficiency Unspecified vitamin D deficiency Atypical chronic myeloid leukemia, 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, in remission (HCC) [facility] [place] [facility]* Diagnosis 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 Primary hypertension Unspecified essential hypertension Mixed hyperlipidemia Benign prostatic hyperplasia without lower urinary tract symptoms Prediabetes Other abnormal glucose [facility] [place] [facility]* Diagnosis Primary hypertension- Primary Unspecified essential hypertension Mixed hyperlipidemia PAD (peripheral artery disease) (HCC) Peripheral vascular disease, unspecified Atrial fibrillation, unspecified type (HCC) Stage 3 chronic kidney disease, unspecified whether stage 3a or 3b CKD (HCC) Preop examination Preoperative examination, unspecified Prediabetes Other abnormal glucose Bladder mass [N32.89] Other specified disorders of bladder Malignant neoplasm of urinary bladder, unspecified site (HCC)- Primary [facility] [place] [facility]* Diagnosis Primary hypertension- Primary Unspecified essential hypertension Mixed hyperlipidemia PAD (peripheral artery disease) (HCC) Peripheral vascular disease, unspecified Atrial fibrillation, unspecified type (HCC) Stage 3 chronic kidney disease, unspecified whether stage 3a or 3b CKD (HCC) Preop examination Preoperative examination, unspecified Prediabetes Other abnormal glucose Bladder mass [N32.89] Other specified disorders of bladder Lung nodules- Primary Other nonspecific abnormal finding of lung field Encounter for screening for malignant neoplasm of lung Tobacco use Tobacco use disorder [facility] [place] [facility]* Diagnosis Primary hypertension- Primary Unspecified essential hypertension Mixed hyperlipidemia PAD (peripheral artery disease) (HCC) Peripheral vascular disease, unspecified Atrial fibrillation, unspecified type (HCC) Stage 3 chronic kidney disease, unspecified whether stage 3a or 3b CKD (HCC) Preop examination Preoperative examination, unspecified Prediabetes Other abnormal glucose Bladder mass [N32.89] Other specified disorders of bladder Encounter for screening for malignant neoplasm of lung Smoker Tobacco use disorder [facility] [place] [facility]* Diagnosis Primary hypertension- Primary Unspecified essential hypertension Mixed hyperlipidemia PAD (peripheral artery disease) (HCC) Peripheral vascular disease, unspecified Atrial fibrillation, unspecified type (HCC) Stage 3 chronic kidney disease, unspecified whether stage 3a or 3b CKD (HCC) Preop examination Preoperative examination, unspecified Prediabetes Other abnormal glucose Bladder mass [N32.89] Other specified disorders of bladder Medicare annual wellness visit, subsequent- Primary Routine general medical examination at a health care facility Primary hypertension Unspecified essential hypertension Mixed hyperlipidemia Prediabetes Other abnormal glucose Immunodeficiency (HCC) Unspecified immunity deficiency S/P allogeneic bone marrow transplant (HCC) Bone marrow replaced by transplant Benign prostatic hyperplasia without lower urinary tract symptoms Stage 3 chronic kidney disease, unspecified whether stage 3a or 3b CKD (HCC) Atypical chronic myeloid leukemia, 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, in remission (HCC) Screening for depression Encounter for screening examination for other mental health and behavioral disorders [facility] [place] [facility]* Diagnosis Primary hypertension- Primary Unspecified essential hypertension Mixed hyperlipidemia PAD (peripheral artery disease) (HCC) Peripheral vascular disease, unspecified Atrial fibrillation, unspecified type (HCC) Stage 3 chronic kidney disease, unspecified whether stage 3a or 3b CKD (HCC) Preop examination Preoperative examination, unspecified Prediabetes Other abnormal glucose Bladder mass [N32.89] Other specified disorders of bladder Malignant neoplasm of urinary bladder, unspecified site (HCC)- Primary documented in this encounter [facility] note* Diagnosis Primary hypertension- Primary Unspecified essential hypertension Mixed hyperlipidemia PAD (peripheral artery disease) (HCC) Peripheral vascular disease, unspecified Atrial fibrillation, unspecified type (HCC) Stage 3 chronic kidney disease, unspecified whether stage 3a or 3b CKD (HCC) Preop examination Preoperative examination, unspecified Prediabetes Other abnormal glucose Bladder mass [N32.89] Other specified disorders of bladder Malignant neoplasm of urinary bladder, unspecified site (HCC)- Primary documented in this encounter [facility] note* Diagnosis Primary hypertension- Primary Unspecified essential hypertension Mixed hyperlipidemia PAD (peripheral artery disease) (HCC) Peripheral vascular disease, unspecified Atrial fibrillation, unspecified type (HCC) Stage 3 chronic kidney disease, unspecified whether stage 3a or 3b CKD (HCC) Preop examination Preoperative examination, unspecified Prediabetes Other abnormal glucose Bladder mass [N32.89] Other specified disorders of bladder Malignant neoplasm of other specified sites of bladder (HCC)- Primary Malignant neoplasm of other specified sites of bladder documented in this encounter [facility] note* Diagnosis Primary hypertension- Primary Unspecified essential hypertension Mixed hyperlipidemia PAD (peripheral artery disease) (HCC) Peripheral vascular disease, unspecified Atrial fibrillation, unspecified type (HCC) Stage 3 chronic kidney disease, unspecified whether stage 3a or 3b CKD (HCC) Preop examination Preoperative examination, unspecified Prediabetes Other abnormal glucose Bladder mass [N32.89] Other specified disorders of bladder Malignant neoplasm of urinary bladder, unspecified site (HCC)- Primary documented in this encounter [facility] note* Diagnosis Primary hypertension- Primary Unspecified essential hypertension Mixed hyperlipidemia PAD (peripheral artery disease) Peripheral vascular disease, unspecified Atrial fibrillation, unspecified type (HCC) Stage 3 chronic kidney disease, unspecified whether stage 3a or 3b CKD (HCC) Preop examination Preoperative examination, unspecified Prediabetes Other abnormal glucose Bladder mass [N32.89] Other specified disorders of bladder Abdominal aortic aneurysm (AAA) without rupture, unspecified part- Primary Primary hypertension Unspecified essential hypertension Mixed hyperlipidemia PAD (peripheral artery disease) Peripheral vascular disease, unspecified Lung nodules Other nonspecific abnormal finding of lung field Tobacco use disorder Stage 3 chronic kidney disease, unspecified whether stage 3a or 3b CKD (HCC) Malignant neoplasm of urinary bladder, unspecified site (HCC) Type 2 diabetes mellitus with diabetic chronic kidney disease, unspecified CKD stage, unspecified whether alf insulin use (HCC) Preoperative examination Preoperative examination, unspecified Prediabetes- Primary Other abnormal glucose Benign prostatic hyperplasia without lower urinary tract symptoms Mixed hyperlipidemia Primary hypertension Unspecified essential hypertension Malignant neoplasm of urinary bladder, unspecified site (HCC) [facility] [place] [facility]* Diagnosis Primary hypertension- Primary Unspecified essential hypertension Mixed hyperlipidemia PAD (peripheral artery disease) Peripheral vascular disease, unspecified Atrial fibrillation, unspecified type (HCC) Stage 3 chronic kidney disease, unspecified whether stage 3a or 3b CKD (HCC) Preop examination Preoperative examination, unspecified Prediabetes Other abnormal glucose Bladder mass [N32.89] Other specified disorders of bladder Abdominal aortic aneurysm (AAA) without rupture, unspecified part- Primary Primary hypertension Unspecified essential hypertension Mixed hyperlipidemia PAD (peripheral artery disease) Peripheral vascular disease, unspecified Lung nodules Other nonspecific abnormal finding of lung field Tobacco use disorder Stage 3 chronic kidney disease, unspecified whether stage 3a or 3b CKD (HCC) Malignant neoplasm of urinary bladder, unspecified site (HCC) Type 2 diabetes mellitus with diabetic chronic kidney disease, unspecified CKD stage, unspecified whether roasterman insulin use (HCC) Preoperative examination Preoperative examination, unspecified Fatigue, unspecified type- Primary Neuropathy, arm, 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, unspecified CKD stage, unspecified whether roasterman insulin use (HCC) Abnormal EKG Nonspecific abnormal electrocardiogram (ECG) (EKG) documented [facility] [place] [facility]* Diagnosis Onset Date Resolution Status Admit Date Abnormal ECG acute March 19 8:48am [facility] effort acute March 8:48am [facility] Work Phone: Evaluation note* Diagnosis Primary hypertension- Primary Unspecified essential hypertension Mixed hyperlipidemia PAD (peripheral artery disease) Peripheral vascular disease, unspecified Atrial fibrillation, unspecified type (HCC) Stage 3 chronic kidney disease, unspecified whether stage 3a or 3b CKD (HCC) Preop examination Preoperative examination, unspecified Prediabetes Other abnormal glucose Bladder mass [N32.89] Other specified disorders of bladder Abdominal aortic aneurysm (AAA) without rupture, unspecified part- Primary Primary hypertension Unspecified essential hypertension Mixed hyperlipidemia PAD (peripheral artery disease) Peripheral vascular disease, unspecified Lung nodules Other nonspecific abnormal finding of lung field Tobacco use disorder Stage 3 chronic kidney disease, unspecified whether stage 3a or 3b CKD (HCC) Malignant neoplasm of urinary bladder, unspecified site (HCC) Type 2 diabetes mellitus with diabetic chronic kidney disease, unspecified CKD stage, unspecified whether alf insulin use (HCC) Preoperative examination Preoperative examination, unspecified Screening for genitourinary condition- Primary Screening for other and unspecified genitourinary condition Malignant neoplasm of urinary bladder, unspecified site (HCC) [facility] Diagnosis Primary hypertension- Primary Unspecified essential hypertension Mixed hyperlipidemia PAD (peripheral artery disease) Peripheral vascular disease, unspecified Atrial fibrillation, unspecified type (HCC) Stage 3 chronic kidney disease, unspecified whether stage 3a or 3b CKD (HCC) Preop examination Preoperative examination, unspecified Prediabetes Other abnormal glucose Bladder mass [N32.89] Other specified disorders of bladder Abdominal aortic aneurysm (AAA) without rupture, unspecified part- Primary Primary hypertension Unspecified essential hypertension Mixed hyperlipidemia PAD (peripheral artery disease) Peripheral vascular disease, unspecified Lung nodules Other nonspecific abnormal finding of lung field Tobacco use disorder Stage 3 chronic kidney disease, unspecified whether stage 3a or 3b CKD (HCC) Malignant neoplasm of urinary bladder, unspecified site (HCC) Type 2 diabetes mellitus with diabetic chronic kidney disease, unspecified CKD stage, unspecified whether alf insulin use (HCC) Preoperative examination Preoperative examination, unspecified Malignant neoplasm of urinary bladder, unspecified site (HCC)- Primary [facility]* Mark Anthony Washington RN: PERFORM Event Display: History and Physical Scanned Authored Date: [id number] [facility] Reason for referral (narrative)No reason for referral information availableWLouis [facility] Work Phone: Reason for visit Narrative* [place] Prior Authorization (Routine) - Authorized Specialty Diagnoses / Procedures Referred By Contac t Referred To Contact Diagnoses Malignant neoplasm of urinary bladder, unspecified site (HCC) Tami Anne Jr., MD [address] [place] [address] Phone: tel: fax: Urology [address] [address] Phone: tel: Referral ID Status Reason Start Date Expiration Date V isits Requested Visits Authorized [id number] Authorized 03/22/2025 06/20/2025 99 99 [facility] Summary Purpose Family History No Family History Records Found Relationship Condition Age at Onset Recorded Date/T viviana mother Malignant neoplasm Unknown Hypertension Unknown Hyperlipidemia Unknown father Hyperlipidemia Unknown Cardiac disease Unknown brother Malignant neoplasm Unknown Advance Directives No Advanced Directives Records FoundDocuments on File Type Date Recorded 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 Advance Directive(s) Advance Directive(s) 02/01/2018 10:32 PM Advance Directive(s) 11/23/2017 12:22 PM Advance Directive(s) 04/14/2017 11:45 AM Documents on File Type Date Recorded 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 Advance Directive(s) Advance Directive(s) 02/01/2018 10:32 PM Advance Directive(s) 11/23/2017 12:22 PM Advance Directive(s) 04/14/2017 11:45 AM Advance Directive Response Recorded Date/ Time Advance Directives No January 26 6 8:18am Living Will No January 22, 2020 9 :10am Power of Pharmacy Data Analyst No January 22, 2020 9:10am Advance Directive Response Recorded Date/ Time Advance Directives No January 26 6 7:18am Living Will No January 22, 2020 8 :10am Power of Pharmacy Data Analyst No January 22, 2020 8:10am Advance Directive Response Recorded Date/ Time Advance Directives No January 26 6 8:18am Reason for Referral Specialty Diagnoses / Procedures Referred By Contac t Referred To Contact Dermatology Diagnoses Skin lesion Procedures CONSULT TO DERMATOLOGY Lambert Gomez MD [address] [place] [address] Referral ID Status Reason Start Date Expiration Date Visits Requested Visits Authorized [id number] Ref Not Required PCP Requested Referral 01/20/2022 01/20/2023 1 1 Specialty Diagnoses / Procedures Referred By Contac t Referred To Contact Hematology Diagnoses CML (chronic myeloid leukemia) (HCC) Procedures CONSULT TO HEMATOLOGY OFFICE/OUTPATIENT [facility] 60-74 MINUTES Lambert Gomez MD [address] [place] [address] Referral ID Status Reason Start Date Expiration Date Visits Requested Visits Authorized [id number] Authorized PCP Requested Referral 01/20/2022 01/20/2023 1 1 Specialty Diagnoses / Procedures Referred By Contac t Referred To Contact CT IMAGING Diagnoses Smoker Encounter for screening for malignant neoplasm of lung Procedures CT LUNG SCREEN WO IVCON COMPUTED TOMOGRAPHY THORAX LW DOSE LNG CA SCR Ismael- Tameka, Rachael Starkey, GLASS SILVERER.LINEN ROOM SUPERVISOR [address] [place] [place] [address] Ct Imaging Referral ID Status Reason Start Date Expiration Date Visits Requested Visits Authorized [id number] Pending Review Auto-Generat ed Referral 04/01/2023 04/30/2024 1 1 Specialty Diagnoses / Procedures Referred By Contac t Referred To Contact Nephrology Diagnoses Stage 3a chronic kidney disease (HCC) Procedures CONSULT TO NEPHROLOGY OFFICE/OUTPATIENT [facility] 60-74 MINUTES Lambert Gomez MD [address] [place] [address] Referral ID Status Reason Start Date Expiration Date Visits Requested Visits Authorized [id number] Authorized PCP Requested Referral 04/22/2023 04/21/2024 1 1 Specialty Diagnoses / Procedures Referred By Contac t Referred To Contact CT IMAGING Diagnoses Benign prostatic hyperplasia with lower urinary tract symptoms, symptom details unspecified Gross hematuria Procedures CT UROGRAM WO/W IVCON CT ABD & PELVIS W/O CONTRST 1+ BODY Wood Ralph PA-C [address] [place] [address] Ct Imaging [facility] Referral ID Status Reason Start Date Expiration Date Visits Requested Visits Authorized [id number] Pending Review Auto-Generat ed Referral 07/17/2024 1 1 Specialty Diagnoses / Procedures Referred By Contac t Referred To Contact CT IMAGING Diagnoses Encounter for screening for malignant neoplasm of lung Smoker Procedures CT LUNG SCREEN WO IVCON COMPUTED TOMOGRAPHY THORAX LW DOSE LNG CA SCR C- Rachael English Avismadelin, GLASS SILVERER.LINEN ROOM SUPERVISOR [id number] [facility] [place] [address] Referral ID Status Reason Start Date Expiration Date Visits Requested Visits Authorized [id number] Authorized Auto-Generat ed Referral 07/22/2024 1 1 Specialty Diagnoses / Procedures Referred By Contac t Referred To Contact CT IMAGING Diagnoses Smoker Encounter for screening for malignant neoplasm of lung Procedures CT LUNG SCREEN WO IVCON COMPUTED TOMOGRAPHY THORAX LW DOSE LNG CA SCR Ismael- Rachael English Avismadelin, GLASS SILVERER.LINEN ROOM SUPERVISOR [phone] [facility] [place] [address] Referral ID Status Reason Start Date Expiration Date V isits Requested Visits Authorized [id number] Closed Auto-Generate d Referral 04/01/2023 04/30/2024 1 1 Referral ID Status Reason Start Date Expiration Date V isits Requested Visits Authorized [id number] Closed Auto-Generate d Referral 06/25/2023 07/17/2024 1 1 Specialty Diagnoses / Procedures Referred By Contac t Referred To Contact CT IMAGING Diagnoses Encounter for screening for malignant neoplasm of lung Tobacco use Procedures CT LUNG SCREEN WO IVCON COMPUTED TOMOGRAPHY THORAX LW DOSE LNG CA SCR Sheela Amaro, GLASS SILVERER.LINEN ROOM SUPERVISOR [id number] Imaging [place] [address] Referral ID Status Reason Start Date Expiration Date Visits Requested Visits Authorized [id number] Authorized Auto-Generat ed Referral 07/27/2025 1 1 Referral ID Status Reason Start Date Expiration Date V isits Requested Visits Authorized [id number] Closed Auto-Generate d Referral 06/23/2023 07/22/2024 1 1 Chief Complaint and Reason for Visit Chief Complaint AFTER CARE Chief Complaint AFTERCARE Chief Complaint Admit Date Pain February 22, 2025 1:50 pm Chief Complaint Admit Date Pain February 22, 2025 1:50 pm ABN EKG (JASON) March 19, 2025 8:48a m Reason for Visit Admit Date Abnormal ECG March 19, 2025 8:48a m Angina of effort March 19, 2025 8:48a m Medications Administered Section Inactive Administered Medications - up to 3 most recent administrations Medication Order MAR Action Action Date Dose Rate Site ciprofloxacin HCl 500 mg tab(s) (CIPRO) 500 mg, ORAL, ONCE, 1 dose, On Wed07/07/23 at 1300, Administer 2 hours before or 4 hours after medications containing calcium, magnesium, aluminum, iron, or zinc (including antacids and sucralfate), and sevelamer. May be administered without regard to meals. Tube feedings should be held 1 hour before and 1 hour after administration., Antimicrobial indication: Prophylaxis Given 07/07/2023 12:59 PM EDT 500 mg Oral lidocaine urojet 2 % 6 mL topical gel (GLYDO) 6 mL, URETHRAL, ONCE, 1 dose, On Wed07/07/23 at 1300 Given by LIP 07/07/2023 12:59 PM EDT 6 mL Other Additional Source Comments (unrecognized sect ion and content) No Status Records FoundNo Status Records FoundNo Status Records FoundNo Status Records FoundNo Status Records FoundNo Status Records FoundNo Status Records Found INFORMATION SOURCE (unrecogn ized section and content) DATE CREATED AUTHOR 04/05/2020 [facility] [place] DATE CREATED AUTHOR AUTHOR'S ORGANIZ ATION 06/14/2022 [facility] DATE CREATED AUTHOR AUTHOR'S ORGANIZ ATION 06/29/2024 [facility] DATE CREATED AUTHOR AUTHOR'S ORGANIZ ATION 02/08/2025 [facility] DATE CREATED AUTHOR AUTHOR'S ORGANIZ ATION 04/07/2025 [facility] DATE CREATED AUTHOR AUTHOR'S ORGANIZ ATION 04/08/2025 [facility] DATE CREATED AUTHOR AUTHOR'S ORGANIZ ATION 04/13/2025 [facility] Source Comments (unrecognize d section and content) In the event this informatio n is protected by the Federal Confidentiality of Alcohol and Drug Abuse Patient Records regulations: The Federal rules restrict any use of the information to criminally investigate or prosecute any alcohol or drug abuse patient.[facility] System[facility] the event this information is protected by the Federal Confidentiality of Alcohol and Drug Abuse Patient Records regulations: The Federal rules restrict any use of the information to criminally investigate or prosecute any alcohol or drug abuse patient.[facility] SystemIn the event this information is protected by the Federal Confidentiality of Alcohol and Drug Abuse Patient Records regulations: The Federal rules restrict any use of the information to criminally investigate or prosecute any alcohol or drug abuse patient.[facility] SystemIn the event this information is protected by the Federal Confidentiality of Alcohol and Drug Abuse Patient Records regulations: The Federal rules restrict any use of the information to criminally investigate or prosecute any alcohol or drug abuse patient.[facility] SystemIn the event this information is protected by the Federal Confidentiality of Alcohol and Drug Abuse Patient Records regulations: The Federal rules restrict any use of the information to criminally investigate or prosecute any alcohol or drug abuse patient.[facility] SystemIn the event this information is protected by the Federal Confidentiality of Alcohol and Drug Abuse Patient Records regulations: The Federal rules restrict any use of the information to criminally investigate or prosecute any alcohol or drug abuse patient.[facility] SystemIn the event this information is protected by the Federal Confidentiality of Alcohol and Drug Abuse Patient Records regulations: The Federal rules restrict any use of the information to criminally investigate or prosecute any alcohol or drug abuse patient.[facility] SystemIn the event this information is protected by the Federal Confidentiality of Alcohol and Drug Abuse Patient Records regulations: The Federal rules restrict any use of the information to criminally investigate or prosecute any alcohol or drug abuse patient.[facility] SystemIn the event this information is protected by the Federal Confidentiality of Alcohol and Drug Abuse Patient Records regulations: The Federal rules restrict any use of the information to criminally investigate or prosecute any alcohol or drug abuse patient.[facility] SystemIn the event this information is protected by the Federal Confidentiality of Alcohol and Drug Abuse Patient Records regulations: The Federal rules restrict any use of the information to criminally investigate or prosecute any alcohol or drug abuse patient.[facility] SystemIn the event this information is protected by the Federal Confidentiality of Alcohol and Drug Abuse Patient Records regulations: The Federal rules restrict any use of the information to criminally investigate or prosecute any alcohol or drug abuse patient.[facility] SystemIn the event this information is protected by the Federal Confidentiality of Alcohol and Drug Abuse Patient Records regulations: The Federal rules restrict any use of the information to criminally investigate or prosecute any alcohol or drug abuse patient.[facility] SystemIn the event this information is protected by the Federal Confidentiality of Alcohol and Drug Abuse Patient Records regulations: The Federal rules restrict any use of the information to criminally investigate or prosecute any alcohol or drug abuse patient.[facility] SystemIn the event this information is protected by the Federal Confidentiality of Alcohol and Drug Abuse Patient Records regulations: The Federal rules restrict any use of the information to criminally investigate or prosecute any alcohol or drug abuse patient.[facility] SystemIn the event this information is protected by the Federal Confidentiality of Alcohol and Drug Abuse Patient Records regulations: The Federal rules restrict any use of the information to criminally investigate or prosecute any alcohol or drug abuse patient.[facility] SystemIn the event this information is protected by the Federal Confidentiality of Alcohol and Drug Abuse Patient Records regulations: The Federal rules restrict any use of the information to criminally investigate or prosecute any alcohol or drug abuse patient.[facility] SystemIn the event this information is protected by the Federal Confidentiality of Alcohol and Drug Abuse Patient Records regulations: The Federal rules restrict any use of the information to criminally investigate or prosecute any alcohol or drug abuse patient.[facility] SystemIn the event this information is protected by the Federal Confidentiality of Alcohol and Drug Abuse Patient Records regulations: The Federal rules restrict any use of the information to criminally investigate or prosecute any alcohol or drug abuse patient.[facility] SystemIn the event this information is protected by the Federal Confidentiality of Alcohol and Drug Abuse Patient Records regulations: The Federal rules restrict any use of the information to criminally investigate or prosecute any alcohol or drug abuse patient.[facility] SystemIn the event this information is protected by the Federal Confidentiality of Alcohol and Drug Abuse Patient Records regulations: The Federal rules restrict any use of the information to criminally investigate or prosecute any alcohol or drug abuse patient.[facility] SystemIn the event this information is protected by the Federal Confidentiality of Alcohol and Drug Abuse Patient Records regulations: The Federal rules restrict any use of the information to criminally investigate or prosecute any alcohol or drug abuse patient.[facility] SystemIn the event this information is protected by the Federal Confidentiality of Alcohol and Drug Abuse Patient Records regulations: The Federal rules restrict any use of the information to criminally investigate or prosecute any alcohol or drug abuse patient.[facility] SystemIn the event this information is protected by the Federal Confidentiality of Alcohol and Drug Abuse Patient Records regulations: The Federal rules restrict any use of the information to criminally investigate or prosecute any alcohol or drug abuse patient.[facility] SystemIn the event this information is protected by the Federal Confidentiality of Alcohol and Drug Abuse Patient Records regulations: The Federal rules restrict any use of the information to criminally investigate or prosecute any alcohol or drug abuse patient.[facility] SystemIn the event this information is protected by the Federal Confidentiality of Alcohol and Drug Abuse Patient Records regulations: The Federal rules restrict any use of the information to criminally investigate or prosecute any alcohol or drug abuse patient.[facility] SystemIn the event this information is protected by the Federal Confidentiality of Alcohol and Drug Abuse Patient Records regulations: The Federal rules restrict any use of the information to criminally investigate or prosecute any alcohol or drug abuse patient.[facility] SystemIn the event this information is protected by the Federal Confidentiality of Alcohol and Drug Abuse Patient Records regulations: The Federal rules restrict any use of the information to criminally investigate or prosecute any alcohol or drug abuse patient.[facility] SystemIn the event this information is protected by the Federal Confidentiality of Alcohol and Drug Abuse Patient Records regulations: The Federal rules restrict any use of the information to criminally investigate or prosecute any alcohol or drug abuse patient.[facility] SystemIn the event this information is protected by the Federal Confidentiality of Alcohol and Drug Abuse Patient Records regulations: The Federal rules restrict any use of the information to criminally investigate or prosecute any alcohol or drug abuse patient.[facility] SystemIn the event this information is protected by the Federal Confidentiality of Alcohol and Drug Abuse Patient Records regulations: The Federal rules restrict any use of the information to criminally investigate or prosecute any alcohol or drug abuse patient.[facility] SystemIn the event this information is protected by the Federal Confidentiality of Alcohol and Drug Abuse Patient Records regulations: The Federal rules restrict any use of the information to criminally investigate or prosecute any alcohol or drug abuse patient.[facility] SystemIn the event this information is protected by the Federal Confidentiality of Alcohol and Drug Abuse Patient Records regulations: The Federal rules restrict any use of the information to criminally investigate or prosecute any alcohol or drug abuse patient.[facility] SystemIn the event this information is protected by the Federal Confidentiality of Alcohol and Drug Abuse Patient Records regulations: The Federal rules restrict any use of the information to criminally investigate or prosecute any alcohol or drug abuse patient.[facility] SystemIn the event this information is protected by the Federal Confidentiality of Alcohol and Drug Abuse Patient Records regulations: The Federal rules restrict any use of the information to criminally investigate or prosecute any alcohol or drug abuse patient.[facility] SystemIn the event this information is protected by the Federal Confidentiality of Alcohol and Drug Abuse Patient Records regulations: The Federal rules restrict any use of the information to criminally investigate or prosecute any alcohol or drug abuse patient.[facility] SystemIn the event this information is protected by the Federal Confidentiality of Alcohol and Drug Abuse Patient Records regulations: The Federal rules restrict any use of the information to criminally investigate or prosecute any alcohol or drug abuse patient.[facility] SystemIn the event this information is protected by the Federal Confidentiality of Alcohol and Drug Abuse Patient Records regulations: The Federal rules restrict any use of the information to criminally investigate or prosecute any alcohol or drug abuse patient.[facility] SystemIn the event this information is protected by the Federal Confidentiality of Alcohol and Drug Abuse Patient Records regulations: The Federal rules restrict any use of the information to criminally investigate or prosecute any alcohol or drug abuse patient.[facility] SystemIn the event this information is protected by the Federal Confidentiality of Alcohol and Drug Abuse Patient Records regulations: The Federal rules restrict any use of the information to criminally investigate or prosecute any alcohol or drug abuse patient.[facility] SystemIn the event this information is protected by the Federal Confidentiality of Alcohol and Drug Abuse Patient Records regulations: The Federal rules restrict any use of the information to criminally investigate or prosecute any alcohol or drug abuse patient.[facility] SystemIn the event this information is protected by the Federal Confidentiality of Alcohol and Drug Abuse Patient Records regulations: The Federal rules restrict any use of the information to criminally investigate or prosecute any alcohol or drug abuse patient.[facility] SystemIn the event this information is protected by the Federal Confidentiality of Alcohol and Drug Abuse Patient Records regulations: The Federal rules restrict any use of the information to criminally investigate or prosecute any alcohol or drug abuse patient.[facility] SystemIn the event this information is protected by the Federal Confidentiality of Alcohol and Drug Abuse Patient Records regulations: The Federal rules restrict any use of the information to criminally investigate or prosecute any alcohol or drug abuse patient.[facility] SystemIn the event this information is protected by the Federal Confidentiality of Alcohol and Drug Abuse Patient Records regulations: The Federal rules restrict any use of the information to criminally investigate or prosecute any alcohol or drug abuse patient.[facility] SystemIn the event this information is protected by the Federal Confidentiality of Alcohol and Drug Abuse Patient Records regulations: The Federal rules restrict any use of the information to criminally investigate or prosecute any alcohol or drug abuse patient.[facility] SystemIn the event this information is protected by the Federal Confidentiality of Alcohol and Drug Abuse Patient Records regulations: The Federal rules restrict any use of the information to criminally investigate or prosecute any alcohol or drug abuse patient.[facility] SystemIn the event this information is protected by the Federal Confidentiality of Alcohol and Drug Abuse Patient Records regulations: The Federal rules restrict any use of the information to criminally investigate or prosecute any alcohol or drug abuse patient.[facility] SystemIn the event this information is protected by the Federal Confidentiality of Alcohol and Drug Abuse Patient Records regulations: The Federal rules restrict any use of the information to criminally investigate or prosecute any alcohol or drug abuse patient.[facility] SystemIn the event this information is protected by the Federal Confidentiality of Alcohol and Drug Abuse Patient Records regulations: The Federal rules restrict any use of the information to criminally investigate or prosecute any alcohol or drug abuse patient.[facility] SystemIn the event this information is protected by the Federal Confidentiality of Alcohol and Drug Abuse Patient Records regulations: The Federal rules restrict any use of the information to criminally investigate or prosecute any alcohol or drug abuse patient.[facility] SystemIn the event this information is protected by the Federal Confidentiality of Alcohol and Drug Abuse Patient Records regulations: The Federal rules restrict any use of the information to criminally investigate or prosecute any alcohol or drug abuse patient.[facility] SystemIn the event this information is protected by the Federal Confidentiality of Alcohol and Drug Abuse Patient Records regulations: The Federal rules restrict any use of the information to criminally investigate or prosecute any alcohol or drug abuse patient.[facility] SystemIn the event this information is protected by the Federal Confidentiality of Alcohol and Drug Abuse Patient Records regulations: The Federal rules restrict any use of the information to criminally investigate or prosecute any alcohol or drug abuse patient.[facility] SystemIn the event this information is protected by the Federal Confidentiality of Alcohol and Drug Abuse Patient Records regulations: The Federal rules restrict any use of the information to criminally investigate or prosecute any alcohol or drug abuse patient.[facility] SystemIn the event this information is protected by the Federal Confidentiality of Alcohol and Drug Abuse Patient Records regulations: The Federal rules restrict any use of the information to criminally investigate or prosecute any alcohol or drug abuse patient.[facility] SystemIn the event this information is protected by the Federal Confidentiality of Alcohol and Drug Abuse Patient Records regulations: The Federal rules restrict any use of the information to criminally investigate or prosecute any alcohol or drug abuse patient.[facility] SystemIn the event this information is protected by the Federal Confidentiality of Alcohol and Drug Abuse Patient Records regulations: The Federal rules restrict any use of the information to criminally investigate or prosecute any alcohol or drug abuse patient.[facility] SystemIn the event this information is protected by the Federal Confidentiality of Alcohol and Drug Abuse Patient Records regulations: The Federal rules restrict any use of the information to criminally investigate or prosecute any alcohol or drug abuse patient.[facility] SystemIn the event this information is protected by the Federal Confidentiality of Alcohol and Drug Abuse Patient Records regulations: The Federal rules restrict any use of the information to criminally investigate or prosecute any alcohol or drug abuse patient.[facility] SystemIn the event this information is protected by the Federal Confidentiality of Alcohol and Drug Abuse Patient Records regulations: The Federal rules restrict any use of the information to criminally investigate or prosecute any alcohol or drug abuse patient.[facility] SystemIn the event this information is protected by the Federal Confidentiality of Alcohol and Drug Abuse Patient Records regulations: The Federal rules restrict any use of the information to criminally investigate or prosecute any alcohol or drug abuse patient.[facility] Reason for Visit (unrecogniz ed section and content) Reason Comments BCG Instillation Specialty Diagnoses / Procedures Referred By Contac t Referred To Contact [facility] Diagnoses Malignant neoplasm of bladder, unspecified Procedures BCG LIVE INSTILLATION 1 MG 1ST TREATMENT 1 HOUR Tami Anne Jr., [place] [address] [place] [address] [facility] [address] [place] [address] Referral ID Status Reason Start Date Expiration Date V isits Requested Visits Authorized [id number] Authorized 12/24/2023 09/12/2024 99 99 Reason Comments F/U 6 months Refill Request Reason Comments Results Reason Comments Multi Craft Maintenance Technician - Other Reason Comments Lab Orders Reason Comments Patient Question Reason Comments Blood Pressure Recheck Reason Comments Established Patient 4 week follow up Reason Comments Follow Up 6 month- Medication refills needed. Reason Comments Results Reason Comments Patient Question Patient called in on 06/01/2023 and asked if the office could please call him when the Covid boosters come in. He would like to schedule his flu shot at the sametime. Call [phone] Reason Comments Established Patient Reason Comments LSC F/U Nodule Specialty Diagnoses / Procedures Referred By Contac t Referred To Contact CT IMAGING Diagnoses Smoker Encounter for screening for malignant neoplasm of lung Procedures CT LUNG SCREEN WO IVCON COMPUTED TOMOGRAPHY THORAX LW DOSE LNG CA SCR Rachael Marquez, GLASS SILVERER.LINEN ROOM SUPERVISOR [address] [place] [address] [address] Imaging [place] [address] Referral ID Status Reason Start Date Expiration Date V isits Requested Visits Authorized [id number] Closed Auto-Generate d Referral 04/01/2023 04/30/2024 1 1 Reason Comments Cystoscopy-[address] Specialty Diagnoses / Procedures Referred By Contac t Referred To Contact CT IMAGING Diagnoses Benign prostatic hyperplasia with lower urinary tract symptoms, symptom details unspecified Gross hematuria Procedures CT UROGRAM WO/W IVCON CT ABD & PELVIS W/O CONTRST 1+ BODY Wood Ralph PA-C [address] [place] [address] Ct Imaging [place] [address] Referral ID Status Reason Start Date Expiration Date V isits Requested Visits Authorized [id number] Closed Auto-Generate d Referral 06/25/2023 07/17/2024 1 1 Reason Onset Date Comments Appointment 07/23/2023 Reason Comments Follow Up 6 month Reason Comments Benign Prostatic Hypertrophy Reason Comments Appointment Reason Comments Bladder Instillation Treatment Specialty Diagnoses / Procedures Referred By Contac t Referred To Contact [facility] Diagnoses Bladder cancer (HCC) //// BED - [place] / Tax x 6 Procedures GEMCITABINE HCL, 200 MG 1ST TREATMENT 3.5 HOURS Tami Anne Jr., MD [address] [place] [address] [facility] [address] [place] [address] Referral ID Status Reason Start Date Expiration Date V isits Requested Visits Authorized [id number] Authorized 09/17/2023 09/12/2024 99 99 Reason Onset Date Comments Refill Request 02/07/2024 Reason Comments Orders Reason Comments Follow Up ct scan Specialty Diagnoses / Procedures Referred By Contac t Referred To Contact CT IMAGING Diagnoses Encounter for screening for malignant neoplasm of lung Smoker Procedures CT LUNG SCREEN WO IVCON COMPUTED TOMOGRAPHY THORAX LW DOSE LNG CA SCR Ismael- Rachael English, GLASS SILVERER.LINEN ROOM SUPERVISOR [address] [place] [id number] Imaging [place] [address] Referral ID Status Reason Start Date Expiration Date V isits Requested Visits Authorized [id number] Closed Auto-Generate d Referral 06/23/2023 07/22/2024 1 1 Reason Comments Medicare Wellness Exam Reason Onset Date Comments Population Health Navigation Outreach 01/17/2025 ACO WORKBEMARQUITA VAZQUEZ PCSA Reason Onset Date Comments Appointment 01/19/2025 Reason Comments F/U 6 months Reason Comments Numbness L upper part of arm. Ongoing X 2 days. Comes and goes. Fatigue Reason Comments BCG Question, Vascular surgery Reason Comments Nurse Visit Specialty Diagnoses / Procedures Referred By Contac t Referred To Contact Diagnoses Malignant neoplasm of urinary bladder, unspecified site (HCC) Tami Anne Jr., MD [address] [place] [address] Phone: tel: fax: Urology [address] [address] Phone: tel: Referral ID Status Reason Start Date Expiration Date V isits Requested Visits Authorized [id number] Authorized 03/22/2025 06/20/2025 99 99 Reason Onset Date Comments Population Health Navigation Outreach 04/11/2025 ACO WORKBENCH VAZQUEZ PCSA Care Teams (unrecognized sec tion and content) Wireline Field Operator Relationship Specialty Start Date End Date Lambert Gomez MD [address] [place] [address] PCP - General Family Practice 11/25/18 Dean Cár[place] [address] [place] [address] Physician Hematology/Oncology 11/02/17 Jey Truong, RN [address] [place] [address] Specialty Multi Craft Maintenance Technician Blood and Marrow Transplant 12/16/17 Tosha Ray, GLASS SILVERER.LINEN ROOM SUPERVISOR [address] [place] [address] Nurse Practitioner Blood and Marrow Transplant 03/21/21 Wireline Field Operator Relationship Specialty Start Date End Date Lambert Gomez MD [address] [place] [address] PCP - General Family Practice 11/25/18 Dean Cár[place] [address] [place] [address] Physician Hematology/Oncology 11/02/17 Jey Truong, RN [address] [place] [address] Specialty Multi Craft Maintenance Technician Blood and Marrow Transplant 12/16/17 Tosha Ray, GLASS SILVERER.LINEN ROOM SUPERVISOR [address] [place] [address] Nurse Practitioner Blood and Marrow Transplant 03/21/21 Wireline Field Operator Relationship Specialty Start Date End Date Lambert Gomez MD [address] [place] [address] PCP - General Family Practice 11/25/18 Dean Cár[place] [address] [place] [address] Physician Hematology/Oncology 11/02/17 Jey Truong, RN [address] [place] [address] Specialty Multi Craft Maintenance Technician Blood and Marrow Transplant 12/16/17 Tosha Ray, GLASS SILVERER.LINEN ROOM SUPERVISOR [address] [place] [address] Nurse Practitioner Blood and Marrow Transplant 03/21/21 Wireline Field Operator Relationship Specialty Start Date End Date Lambert Gomez MD [address] [place] [address] PCP - General Family Practice 11/25/18 Dean Cár[place] [address] [place] [address] Physician Hematology/Oncology 11/02/17 Jey Truong RN [address] [place] [address] Specialty Multi Craft Maintenance Technician Blood and Marrow Transplant 12/16/17 Tosha Ray, GLASS SILVERER.LINEN ROOM SUPERVISOR [address] [place] [address] Nurse Practitioner Blood and Marrow Transplant 03/21/21 Wireline Field Operator Relationship Specialty Start Date End Date Lambert Gomez MD [address] [place] [address] PCP - General Family Practice 11/25/18 Dean Cár[place] [address] [place] [address] Physician Hematology/Oncology 11/02/17 Jey Truong RN [address] [place] [address] Specialty Multi Craft Maintenance Technician Blood and Marrow Transplant 12/16/17 Tosha Ray, GLASS SILVERER.LINEN ROOM SUPERVISOR [address] [place] [address] Nurse Practitioner Blood and Marrow Transplant 03/21/21 Wireline Field Operator Relationship Specialty Start Date End Date Lambert Gomez MD [address] [place] [address] PCP - General Family Medicine 11/25/18 Dean Cár[place] [address] [place] [address] Physician Hematology/Oncology 11/02/17 Jey Truong, RN [address] [place] [address] Specialty Multi Craft Maintenance Technician Blood and Marrow Transplant 12/16/17 Tosha Ray, GLASS SILVERER.LINEN ROOM SUPERVISOR [address] [place] [address] Nurse Practitioner Blood and Marrow Transplant 03/21/21 Wireline Field Operator Relationship Specialty Start Date End Date Lambert Gomez MD [address] [place] [address] PCP - General Family Medicine 11/25/18 Dean Cár[place] [address] [place] [address] Physician Hematology/Oncology 11/02/17 Jey Truong, RN [address] [place] [address] Specialty Multi Craft Maintenance Technician Blood and Marrow Transplant 12/16/17 Tosha Ray, GLASS SILVERER.LINEN ROOM SUPERVISOR [address] [place] [address] Nurse Practitioner Blood and Marrow Transplant 03/21/21 Wireline Field Operator Relationship Specialty Start Date End Date Lambert Gomez MD [address] [place] [address] PCP - General Family Medicine 11/25/18 Dean Cár[place] [address] [place] [address] Physician Hematology/Oncology 11/02/17 Jey Truong, RN [address] [place] [address] Specialty Multi Craft Maintenance Technician Blood and Marrow Transplant 12/16/17 Tosha Ray, GLASS SILVERER.LINEN ROOM SUPERVISOR [address] [place] [address] Nurse Practitioner Blood and Marrow Transplant 03/21/21 Wireline Field Operator Relationship Specialty Start Date End Date Lambert Gomez MD [address] [place], [place] [id number] PCP - General Family Medicine 11/25/18 Dean Cár[place] [address] [place] [address] Physician Hematology/Oncology 11/02/17 Jey Truong, RN [address] [place] [address] Specialty Multi Craft Maintenance Technician Blood and Marrow Transplant 12/16/17 Tosha Ray, GLASS SILVERER.LINEN ROOM SUPERVISOR [address] [place] [address] Nurse Practitioner Blood and Marrow Transplant 03/21/21 Team Status: Active Member Role Status Dates Dr. Tracy Nash MD Family Provider Active Dr. Rome Gomez MD Primary Care Provider Acti ve Team Status: Inactive Member Role Status Dates Dr. Rome Gomez MD Primary Care Provider Acti ve Dr. Pedrito Pitts MD Attending Provider, Referring Provider Active Wireline Field Operator Relationship Specialty Start Date End Date Lambert Gomez MD [address] [place], [place] [id number] PCP - General Family Medicine 11/25/18 Dean Cár[place] [address] [place] [address] Physician Hematology/Oncology 11/02/17 Jey Truong, RN [address] [place] [address] Specialty Multi Craft Maintenance Technician Blood and Marrow Transplant 12/16/17 Tosha Ray APRN.LINEN ROOM SUPERVISOR [address] [place] [address] Nurse Practitioner Blood and Marrow Transplant 03/21/21 Wireline Field Operator Relationship Specialty Start Date End Date Lambert Gomez MD [address] [place], [place] [address] PCP - General Family Medicine 11/25/18 Dean Cár[place] [address] [place] [address] Physician Hematology/Oncology 11/02/17 Jey Truong RN [address] [place] [address] Specialty Multi Craft Maintenance Technician Blood and Marrow Transplant 12/16/17 Tosha Ray APRN.LINEN ROOM SUPERVISOR [address] [place] [address] Nurse Practitioner Blood and Marrow Transplant 03/21/21 Wireline Field Operator Relationship Specialty Start Date End Date Lambert Gomez MD [address] [place] [address] PCP - General Family Medicine 11/25/18 Dean Cár[place] [address] [place] [address] Physician Hematology/Oncology 11/02/17 Jey Truong RN [address] [place] [address] Specialty Multi Craft Maintenance Technician Blood and Marrow Transplant 12/16/17 Tosha Ray APRN.LINEN ROOM SUPERVISOR [address] [place] [address] Nurse Practitioner Blood and Marrow Transplant 03/21/21 Wireline Field Operator Relationship Specialty Start Date End Date Lambert Gomez MD [address] [place] [address] PCP - General Family Medicine 11/25/18 Jey Truong, RN [address] [place] [address] Specialty Multi Craft Maintenance Technician Blood and Marrow Transplant 12/16/17 Tosha Ray APRN.LINEN ROOM SUPERVISOR [address] [place] [address] Nurse Practitioner Blood and Marrow Transplant 03/21/21 Wireline Field Operator Relationship Specialty Start Date End Date Lambert Gomez MD [address] [place] [address] PCP - General Family Medicine 11/25/18 Jey Truong RN [address] [place] [address] Specialty Multi Craft Maintenance Technician Blood and Marrow Transplant 12/16/17 Tosha Ray, GLASS SILVERER.LINEN ROOM SUPERVISOR [address] [place] [address] Nurse Practitioner Blood and Marrow Transplant 03/21/21 Wireline Field Operator Relationship Specialty Start Date End Date Lambert Gomez MD [address] [place] [address] PCP - General Family Medicine 11/25/18 Jey Truong RN [address] [place] [address] Specialty Multi Craft Maintenance Technician Blood and Marrow Transplant 12/16/17 Tosha Ray APRN.LINEN ROOM SUPERVISOR [address] [place] [address] Nurse Practitioner Blood and Marrow Transplant 03/21/21 Wireline Field Operator Relationship Specialty Start Date End Date Lambert Gomez MD [address] [place] [address] PCP - General Family Medicine 11/25/18 Jey Truong, RN [address] [place] [address] Specialty Multi Craft Maintenance Technician Blood and Marrow Transplant 12/16/17 Tosha Ray, GLASS SILVERER.LINEN ROOM SUPERVISOR [address] [place] [address] Nurse Practitioner Blood and Marrow Transplant 03/21/21 Wireline Field Operator Relationship Specialty Start Date End Date Lambert Gomez MD [address] [place] [address] PCP - General Family Medicine 11/25/18 Jey Truong RN [address] [place] [address] Specialty Multi Craft Maintenance Technician Blood and Marrow Transplant 12/16/17 Tosha Ray, GLASS SILVERER.LINEN ROOM SUPERVISOR [address] [place] [address] Nurse Practitioner Blood and Marrow Transplant 03/21/21 Wireline Field Operator Relationship Specialty Start Date End Date Lambert Gomez MD [address] [place] [address] PCP - General Family Medicine 11/25/18 Jey Truong, RN [address] [place] [address] Specialty Multi Craft Maintenance Technician Blood and Marrow Transplant 12/16/17 Tosha Ray APRN.LINEN ROOM SUPERVISOR [address] [place] [address] Nurse Practitioner Blood and Marrow Transplant 03/21/21 Wireline Field Operator Relationship Specialty Start Date End Date Lambert Gomez MD [facility] [place] [address] PCP - General Family Medicine 11/25/18 Jey Truong, GEORGI [address] [place] [address] Specialty Multi Craft Maintenance Technician Blood and Marrow Transplant 12/16/17 Tosha Ray APRN.LINEN ROOM SUPERVISOR [address] [place] [address] Nurse Practitioner Blood and Marrow Transplant 03/21/21 Wireline Field Operator Relationship Specialty Start Date End Date Lambert Gomez MD [address] [place] [address] PCP - General Family Medicine 11/25/18 Jey Truong RN [address] [place] [address] Specialty Multi Craft Maintenance Technician Blood and Marrow Transplant 12/16/17 Tosha Ray APRN.LINEN ROOM SUPERVISOR [address] [place] [address] Nurse Practitioner Blood and Marrow Transplant 03/21/21 Wireline Field Operator Relationship Specialty Start Date End Date Lambert Gomez MD [address] [place] [address] PCP - General Family Medicine 11/25/18 Jey Truong, GEORGI [address] [place] [address] Specialty Multi Craft Maintenance Technician Blood and Marrow Transplant 12/16/17 Tosha Ray, GLASS SILVERER.LINEN ROOM SUPERVISOR [address] [place] [address] Nurse Practitioner Blood and Marrow Transplant 03/21/21 Wireline Field Operator Relationship Specialty Start Date End Date Lambert Gomez MD [address] [place] [address] PCP - General Family Medicine 11/25/18 Jey Truong RN [address] [place] [address] Specialty Multi Craft Maintenance Technician Blood and Marrow Transplant 12/16/17 Tosha Ray, GLASS SILVERER.LINEN ROOM SUPERVISOR [address] [place] [address] Nurse Practitioner Blood and Marrow Transplant 03/21/21 Wireline Field Operator Relationship Specialty Start Date End Date Lambert Gomez MD [address] [place] [address] PCP - General Family Medicine 11/25/18 Jey Truong RN [address] [place] [address] Specialty Multi Craft Maintenance Technician Blood and Marrow Transplant 12/16/17 Tosha Ray, GLASS SILVERER.LINEN ROOM SUPERVISOR [address] [place] [address] Nurse Practitioner Blood and Marrow Transplant 03/21/21 Wireline Field Operator Relationship Specialty Start Date End Date Lambert Gomez MD [address] [place], [place] [address] PCP - General Family Medicine 11/25/18 Jey Truong, GEORGI [address] [place] [address] Specialty Multi Craft Maintenance Technician Blood and Marrow Transplant 12/16/17 Tosha Ray, GLASS SILVERER.LINEN ROOM SUPERVISOR [address] [place] [address] Nurse Practitioner Blood and Marrow Transplant 03/21/21 Team Status: Inactive Member Role Status Dates Dr. Rome Gomez MD Primary Care Provider Acti ve Dr. Tania Ortiz , Attending Provider, Referring P marilyn Active Team Status: Inactive Member Role Status Dates Dr. Rome Gomez MD Primary Care Provider Acti ve Dr. Tania Ortiz , Attending Provider Active Wireline Field Operator Relationship Specialty Start Date End Date Lambert Gomez MD [address] [place], [place] [address] PCP - General Family Medicine 11/25/18 Jey Truong RN [address] [place] [address] Specialty Multi Craft Maintenance Technician Blood and Marrow Transplant 12/16/17 Tosha Ray, GLASS SILVERER.LINEN ROOM SUPERVISOR [address] [place] [address] Nurse Practitioner Blood and Marrow Transplant 03/21/21 Zenaida Mason, GEORGI Specialty Multi Craft Maintenance Technician Hematology/Oncology 08/20/23 Wireline Field Operator Relationship Specialty Start Date End Date Lambert Gomez MD [address] [place], [place] [id number] PCP - General Family Medicine 11/25/18 Jey Truong, GEORGI [address] [place] [address] Specialty Multi Craft Maintenance Technician Blood and Marrow Transplant 12/16/17 Tosha Ray, GLASS SILVERER.LINEN ROOM SUPERVISOR [address] [place] [address] Nurse Practitioner Blood and Marrow Transplant 03/21/21 Zenaida Mason, RN Specialty Multi Craft Maintenance Technician Hematology/Oncology 08/20/23 Wireline Field Operator Relationship Specialty Start Date End Date Lambert Gomez MD [address] [place] [address] PCP - General Family Medicine 11/25/18 Jey Truong RN [address] [place] [address] Specialty Multi Craft Maintenance Technician Blood and Marrow Transplant 12/16/17 Tosha Ray, GLASS SILVERER.LINEN ROOM SUPERVISOR [address] [place] [address] Nurse Practitioner Blood and Marrow Transplant 03/21/21 Zenaida Mason, RN Specialty Multi Craft Maintenance Technician Hematology/Oncology 08/20/23 Wireline Field Operator Relationship Specialty Start Date End Date Lambert Gomez MD [address] [place] [address] PCP - General Family Medicine 11/25/18 Jey Truong RN [address] [place] [address] Specialty Multi Craft Maintenance Technician Blood and Marrow Transplant 12/16/17 Tosha Ray, GLASS SILVERER.LINEN ROOM SUPERVISOR [address] [place] [address] Nurse Practitioner Blood and Marrow Transplant 03/21/21 Zenaida Mason RN Specialty Multi Craft Maintenance Technician Hematology/Oncology 08/20/23 Wireline Field Operator Relationship Specialty Start Date End Date Lambert Gomez MD [address] [place] [address] PCP - General Family Medicine 11/25/18 Jey Truong, RN [address] [place], [place] [address] Specialty Multi Craft Maintenance Technician Blood and Marrow Transplant 12/16/17 Tosha Ray, GLASS SILVERER.LINEN ROOM SUPERVISOR [address] [place] [address] Nurse Practitioner Blood and Marrow Transplant 03/21/21 Zenaida Mason RN Specialty Multi Craft Maintenance Technician Hematology/Oncology 08/20/23 Wireline Field Operator Relationship Specialty Start Date End Date Lambert Gomez MD [address] [place] [address] PCP - General Family Medicine 11/25/18 Jey Truong RN [address] [place] [address] Specialty Multi Craft Maintenance Technician Blood and Marrow Transplant 12/16/17 Tosha Ray, GLASS SILVERER.LINEN ROOM SUPERVISOR [address] [place] [address] Nurse Practitioner Blood and Marrow Transplant 03/21/21 Wireline Field Operator Relationship Specialty Start Date End Date Lambert Gomez MD [address] [place] [address] PCP - General Family Medicine 11/25/18 Jey Truong RN [address] [place] [address] Specialty Multi Craft Maintenance Technician Blood and Marrow Transplant 12/16/17 Tosha Ray APRN.LINEN ROOM SUPERVISOR [address] [place] [address] Nurse Practitioner Blood and Marrow Transplant 03/21/21 Wireline Field Operator Relationship Specialty Start Date End Date Lambert Gomez MD [address] [place] [address] PCP - General Family Medicine 11/25/18 Jey Truong RN [address] [place] [address] Specialty Multi Craft Maintenance Technician Blood and Marrow Transplant 12/16/17 Tosha Ray, GLASS SILVERER.LINEN ROOM SUPERVISOR [address] [place] [address] Nurse Practitioner Blood and Marrow Transplant 03/21/21 Wireline Field Operator Relationship Specialty Start Date End Date Lambert Gomez MD [address] [place] [address] PCP - General Family Medicine 11/25/18 Jey Truong RN [address] [place] [address] Specialty Multi Craft Maintenance Technician Blood and Marrow Transplant 12/16/17 Tosha Ray, GLASS SILVERER.LINEN ROOM SUPERVISOR [address] [place] [address] Nurse Practitioner Blood and Marrow Transplant 03/21/21 Wireline Field Operator Relationship Specialty Start Date End Date Lambert Gomez MD [address] [place] [address] PCP - General Family Medicine 11/25/18 Jey Truong, RN [address] [place], [place] [address] Specialty Multi Craft Maintenance Technician Blood and Marrow Transplant 12/16/17 Tosha Ray APRN.LINEN ROOM SUPERVISOR [address] [place] [address] Nurse Practitioner Blood and Marrow Transplant 03/21/21 Wireline Field Operator Relationship Specialty Start Date End Date Lambert Gomez MD [address] [place] [address] PCP - General Family Medicine 11/25/18 Jey Truong RN [address] [place] [address] Specialty Multi Craft Maintenance Technician Blood and Marrow Transplant 12/16/17 Tosha Ray APRN.LINEN ROOM SUPERVISOR [address] [place] [address] Nurse Practitioner Blood and Marrow Transplant 03/21/21 Wireline Field Operator Relationship Specialty Start Date End Date Lambert Gomez MD [address] [place] [address] PCP - General Family Medicine 11/25/18 Jey Truong RN [address] [place] [address] Specialty Multi Craft Maintenance Technician Blood and Marrow Transplant 12/16/17 Tosha Ray APRN.LINEN ROOM SUPERVISOR [address] [place] [address] Nurse Practitioner Blood and Marrow Transplant 03/21/21 Wireline Field Operator Relationship Specialty Start Date End Date Lambert Gomez MD [address] [place] [address] PCP - General Family Medicine 11/25/18 Jey Truong, RN [address] [place] [address] Specialty Multi Craft Maintenance Technician Blood and Marrow Transplant 12/16/17 Tosha Ray APRN.LINEN ROOM SUPERVISOR [address] [place] [address] Nurse Practitioner Blood and Marrow Transplant 03/21/21 Wireline Field Operator Relationship Specialty Start Date End Date Lambert Gomez MD [address] [place] [address] PCP - General Family Medicine 11/25/18 Jey Truong RN [address] [place] [address] Specialty Multi Craft Maintenance Technician Blood and Marrow Transplant 12/16/17 Tosha Ray APRN.LINEN ROOM SUPERVISOR [address] [place] [address] Nurse Practitioner Blood and Marrow Transplant 03/21/21 Wireline Field Operator Relationship Specialty Start Date End Date Lambert Gomez MD [address] [place] [address] PCP - General Family Medicine 11/25/18 Jey Truong RN [address] [place] [address] Specialty Multi Craft Maintenance Technician Blood and Marrow Transplant 12/16/17 Tosha Ray APRN.LINEN ROOM SUPERVISOR [address] [place] [address] Nurse Practitioner Blood and Marrow Transplant 03/21/21 Wireline Field Operator Relationship Specialty Start Date End Date Lambert Gomez MD [address] [place] [address] PCP - General Family Medicine 11/25/18 Jey Truong, GEORGI [address] [place], [place] [address] Specialty Multi Craft Maintenance Technician Blood and Marrow Transplant 12/16/17 Tosha Ray, GLASS SILVERER.LINEN ROOM SUPERVISOR [address] [place] [address] Nurse Practitioner Blood and Marrow Transplant 03/21/21 PodlogarCleopatra, GLASS SILVERER.LINEN ROOM SUPERVISOR [address] [place] [address] [facility] Wireline Field Operator Relationship Specialty Start Date End Date Lambert Gomez MD [address] [place] [address] PCP - General Family Medicine 11/25/18 Jey Truong, GEORGI [address] [place] [address] Specialty Multi Craft Maintenance Technician Blood and Marrow Transplant 12/16/17 Tosha Ray, GLASS SILVERER.LINEN ROOM SUPERVISOR [address] [place] [address] Nurse Practitioner Blood and Marrow Transplant 03/21/21 PodCleopatra mario, GLASS SILVERER.LINEN ROOM SUPERVISOR [address] [place] [address] Waterproofing Mixer Family [facility] 08/19/24 Wireline Field Operator Relationship Specialty Start Date End Date Lambert Gomez MD [address] [place] [address] PCP - General Family Medicine 11/25/18 Jey Truong, RN [address] [place] [address] Specialty Multi Craft Maintenance Technician Blood and Marrow Transplant 12/16/17 Tosha Ray APRN.LINEN ROOM SUPERVISOR [address] [place] [address] Nurse Practitioner Blood and Marrow Transplant 03/21/21 PodCleopatra mario APRN.LINEN ROOM SUPERVISOR [address] [place] [address] [facility] 08/19/24 Wireline Field Operator Relationship Specialty Start Date End Date Lambert Gomez MD [address] [place] [address] PCP - General Family Medicine 11/25/18 Jey Truong, RN [address] [place] [address] Specialty Multi Craft Maintenance Technician Blood and Marrow Transplant 12/16/17 Tosha Ray APRN.LINEN ROOM SUPERVISOR [address] [place] [address] Nurse Practitioner Blood and Marrow Transplant 03/21/21 PodCleopatra mario APRN.LINEN ROOM SUPERVISOR [address] [place] [address] [facility] 08/19/24 Team Status: Inactive Member Role Status Dates Dr. Rome Gomez MD Primary Care Provider Acti ve Start: November 15, 2024 End: November 15, 2024 Dr. Tania Ortiz , DO Attending Provider Active Start: November 15, 2024 End: November 15, 2024 Wireline Field Operator Relationship Specialty Start Date End Date Lambert Gomez MD [address] [place] [address] PCP - General Family Medicine 11/25/18 Jey Truong, GEORGI [address] [place], [place] [address] Specialty Multi Craft Maintenance Technician Blood and Marrow Transplant 12/16/17 Tosha Ray APRN.LINEN ROOM SUPERVISOR [address] [place] [address] Nurse Practitioner Blood and Marrow Transplant 03/21/21 PodlogarCleopatra APRN.LINEN ROOM SUPERVISOR [address] [place] [address] Waterproofing Mixer Family [facility] 08/19/24 Ariadna Wilcox APRN.LINEN ROOM SUPERVISOR [address] [place] [address] [facility] 12/04/24 Wireline Field Operator Relationship Specialty Start Date End Date Lambert Gomez MD [address] [place] [address] PCP - General Family Medicine 11/25/18 Jey Truong RN [address] [place] [address] Specialty Multi Craft Maintenance Technician Blood and Marrow Transplant 12/16/17 Tosha Ray APRN.LINEN ROOM SUPERVISOR [address] [place] [address] Nurse Practitioner Blood and Marrow Transplant 03/21/21 PodlogarCleopatra APRN.LINEN ROOM SUPERVISOR [address] [place] [address] Waterproofing Mixer [facility] 08/19/24 Ariadna Wilcox APRN.LINEN ROOM SUPERVISOR [address] [place] [id number] [phone] Waterproofing Mixer Family [facility] 12/04/24 Wireline Field Operator Relationship Specialty Start Date End Date Lambert Gomez MD [address] [place] [address] PCP - General Family Medicine 11/25/18 Jey Truong, GEORGI [address] [place] [address] Specialty Multi Craft Maintenance Technician Blood and Marrow Transplant 12/16/17 Tosha Ray, GLASS SILVERER.LINEN ROOM SUPERVISOR [address] [place] [address] Nurse Practitioner Blood and Marrow Transplant 03/21/21 PodlogarCleopatra APRN.LINEN ROOM SUPERVISOR [facility] [place] [address] Waterproofing Mixer Family Medicine 08/19/24 Ariadna Wilcox APRN.LINEN ROOM SUPERVISOR [address] [place] [phone] [facility] Family [facility] 12/04/24 Wireline Field Operator Relationship Specialty Start Date End Date Lambert Gomez MD [address] [place] [address] PCP - General Family Medicine 11/25/18 Jey Truong, GEORGI [address] [place] [address] Specialty Multi Craft Maintenance Technician Blood and Marrow Transplant 12/16/17 Tosha Ray APRN.LINEN ROOM SUPERVISOR [address] [place] [address] Nurse Practitioner Blood and Marrow Transplant 03/21/21 PodlogarCleopatra APRN.LINEN ROOM SUPERVISOR [facility] [place] [address] Waterproofing Mixer Family Medicine 08/19/24 Ariadna Wilcox APRN.LINEN ROOM SUPERVISOR [address] [place] [address] [phone] [facility] Family Medicine 12/04/24 Wireline Field Operator Relationship Specialty Start Date End Date Lambert Gomez MD [address] [place] [id number] PCP - General Family Medicine 11/25/18 Jey Truong, RN [address] [place], [place] [id number] Specialty Multi Craft Maintenance Technician Blood and Marrow Transplant 12/16/17 Tosha Ray APRN.LINEN ROOM SUPERVISOR [address] [place] [address] Nurse Practitioner Blood and Marrow Transplant 03/21/21 PodlogarCleopatra APRN.LINEN ROOM SUPERVISOR [facility] [place] [address] Waterproofing Mixer Family Medicine 08/19/24 Ariadna Wilcox APRN.LINEN ROOM SUPERVISOR [address] [place] [address] [phone] [facility] Family Medicine 12/04/24 Wireline Field Operator Relationship Specialty Start Date End Date Lambert Gomez MD [address] [place], [place] [id number] PCP - General Family Medicine 11/25/18 Jey Truong, RN [address] [place], [place] [id number] Specialty Multi Craft Maintenance Technician Blood and Marrow Transplant 12/16/17 Tosha Ray, GLASS SILVERER.LINEN ROOM SUPERVISOR [address] [place] [address] Nurse Practitioner Blood and Marrow Transplant 03/21/21 Cleopatra Greenwood, GLASS SILVERER.LINEN ROOM SUPERVISOR [address] [place], [place] [id number] Waterproofing Mixer Family Medicine 08/19/24 Ariadna Wilcox, GLASS SILVERER.LINEN ROOM SUPERVISOR [address] [place], [place] 347161 Waterproofing Mixer Family Medicine 12/04/24 Team Status: Active Member Role Status Dates Dr. Rome Gomez MD Primary Care Provider Acti ve Team Status: Inactive Member Role Status Dates Dr. Rome Gomez MD Primary Care Provider Acti ve Start: February 22, 2025 End: February 22, 2025 Dr. Pedrito Pitts MD Attending Provider Active Start: February 22, 2025 End: February 22, 2025 Dr. Pedrito Pitts MD Referring Provider Active Start: February 22, 2025 End: February 22, 2025 Team Status: Active Member Role/Relationship Status Dates Dr. Rome Gomez MD Primary Care Provider Acti ve Team Status: Inactive Member Role/Relationship Status Dates Dr. Rome Gomez MD Primary Care Provider Acti ve Start: February 22, 2025 End: February 22, 2025 Dr. Pedrito Pitts MD Attending Provider Active Start: February 22, 2025 End: February 22, 2025 Dr. Pedrito Pitts MD Referring Provider Active Start: February 22, 2025 End: February 22, 2025 Team Status: Inactive Member Role/Relationship Status Dates Dr. Rome Gomez MD Primary Care Provider Acti ve Start: March 19, 2025 End: March 19, 2025 Dr. Rome Gomez MD Referring Provider Active Start: March 19, 2025 End: March 19, 2025 Dr. Tami Seo MD Attending Provider Active Start: March 19, 2025 End: March 19, 2025 Wireline Field Operator Relationship Specialty Start Date End Date Lambert Gomez MD [address] [place] [id number] PCP - General Family Medicine 11/25/18 Jey Truong, RN [address] [place], [place] [phone] Specialty Multi Craft Maintenance Technician Blood and Marrow Transplant 12/16/17 Tosha Ray APRN.LINEN ROOM SUPERVISOR [address] [place] [address] Nurse Practitioner Blood and Marrow Transplant 03/21/21 PodCleopatra mario APRN.LINEN ROOM SUPERVISOR [address] [place] [address] Waterproofing Mixer Family Medicine 08/19/24 Ariadna Wilcox APRN.LINEN ROOM SUPERVISOR [address] [place] [phone] Waterproofing Mixer Family Medicine 02/22/25 Wireline Field Operator Relationship Specialty Start Date End Date Lambert Gomez MD [address] [place] [address] PCP - General Family Medicine 11/25/18 Jey Truong, RN [address] [place] [address] Specialty Multi Craft Maintenance Technician Blood and Marrow Transplant 12/16/17 Tosha Ray APRN.LINEN ROOM SUPERVISOR [address] [place] [address] Nurse Practitioner Blood and Marrow Transplant 03/21/21 PodlogarCleopatra APRN.LINEN ROOM SUPERVISOR [facility] [place], [place] 444911 Waterproofing Mixer Family Medicine 08/19/24 Ariadna Wilcox APRN.LINEN ROOM SUPERVISOR [address] [place] [address] [phone] [facility] Family [facility] 02/22/25 Wireline Field Operator Relationship Specialty Start Date End Date Lambert Gomez MD [address] [place] [address] PCP - General Family Medicine 11/25/18 Jey Truong, RN [address] [place] [address] Specialty Multi Craft Maintenance Technician Blood and Marrow Transplant 12/16/17 Tosha Ray APRN.LINEN ROOM SUPERVISOR [address] [place] [address] Nurse Practitioner Blood and Marrow Transplant 03/21/21 PodlogarCleopatra APRN.LINEN ROOM SUPERVISOR [address] [place] [address] [facility] Family Medicine 08/19/24 Ariadna Wilcox APRN.LINEN ROOM SUPERVISOR [address] [place] [phone] [facility] Family [facility] 02/22/25 Wireline Field Operator Relationship Specialty Start Date End Date Lambert Gomez MD [address] [place], [place] [id number] PCP - General Family Medicine 11/25/18 Jey Truong, RN [address] [place], [place] [phone] Specialty Multi Craft Maintenance Technician Blood and Marrow Transplant 12/16/17 Tosha Ray APRN.LINEN ROOM SUPERVISOR [address] [place] [address] Nurse Practitioner Blood and Marrow Transplant 03/21/21 PodlogarCleopatra APRN.LINEN ROOM SUPERVISOR [address] [place], [place] 628701 Waterproofing Mixer Family Medicine 08/19/24 Ariadna Wilcox APRN.LINEN ROOM SUPERVISOR [address] [place], [place] [phone] Waterproofing Mixer Family Medicine 02/22/25 Goals (unrecognized section and content) Goals may be documented in a n alternate sectionGoals may be documented in an alternate sectionGoals may be documented in an alternate sectionGoals may be documented in an alternate sectionGoals may be documented in an alternate sectionGoals may be documented in an alternate sectionGoals may be documented in an alternate sectionGoals may be documented in an alternate section No data available for this section Inactive Administered Medications - up to 3 most recent administrations Administered Medications (un recognized section and content) Medication Order MAR Action Action Date Dose Rate Site DOCEtaxel 37.5 mg in NaCl 0.9% 50 mL (TAXOTERE) 37.5 mg, INTRAVESICAL, ONCE, 1 dose, On Wed10/15/23 at 1030, Instruct patient to not urinate for 120 minutes after catheter removal. EXP 10/15/23 @ 2130 Hazardous Chemotherapy Drug: Use appropriate PPE. Antineoplastic Irritant., AMB MED ORDERS Given 10/15/2023 11:05 AM EST 37.5 mg gemcitabine 1,000 mg intravesical (GEMZAR) 1,000 mg, INTRAVESICAL, ONCE, 1 dose, On Wed10/15/23 at 0900, Instill into bladder via catheter and retain for 90 minutes, followed by bladder drainage. EXP: 10/15/232129 Hazardous Chemotherapy Drug: Use appropriate PPE. Antineoplastic Irritant., AMB MED ORDERS Given 10/15/2023 9:25 AM EST 1,000 mg lidocaine urojet 2 % 11 mL topical gel (GLYDO) 11 mL, OTHER, ONCE, 1 dose, On Wed10/15/23 at 0900, FOR EXTERNAL USE ONLY Intravesical administration, AMB MED ORDERS Given 10/15/2023 9:20 AM EST 11 mL Inactive Administered Medications - up to 3 most recent administrations Medication Order MAR Action Action Date Dose Rate Site DOCEtaxel 37.5 mg in NaCl 0.9% 50 mL (TAXOTERE) 37.5 mg, INTRAVESICAL, ONCE, 1 dose, On Wed10/22/23 at 1030, Instruct patient to not urinate for 120 minutes after catheter removal. EXP:____10/23/23 1000 Hazardous Chemotherapy Drug: Use appropriate PPE. Antineoplastic Irritant., AMB MED ORDERS Given 10/22/2023 11:00 AM EST 37.5 mg gemcitabine 1,000 mg intravesical (GEMZAR) 1,000 mg, INTRAVESICAL, ONCE, 1 dose, On Wed10/22/23 at 0900, Instill into bladder via catheter and retain for 90 minutes, followed by bladder drainage. EXP:_10/24/23 1000 (48 HR) Hazardous Chemotherapy Drug: Use appropriate PPE. Antineoplastic Irritant., AMB MED ORDERS Given 10/22/2023 9:25 AM EST 1,000 mg lidocaine urojet 2 % 11 mL topical gel (GLYDO) 11 mL, OTHER, ONCE, 1 dose, On Wed10/22/23 at 0900, FOR EXTERNAL USE ONLY Intravesical administration, AMB MED ORDERS Given 10/22/2023 9:10 AM EST 11 mL Inactive Administered Medications - up to 3 most recent administrations Medication Order MAR Action Action Date Dose Rate Site DOCEtaxel 37.5 mg in NaCl 0.9% 50 mL (TAXOTERE) 37.5 mg, INTRAVESICAL, ONCE, 1 dose, On Wed10/29/23 at 1030, Instruct patient to not urinate for 120 minutes after catheter removal. EXP 11/03/23 @ 0900 Hazardous Chemotherapy Drug: Use appropriate PPE. Antineoplastic Irritant., AMB MED ORDERS Given 10/29/2023 10:44 AM EST 37.5 mg gemcitabine 1,000 mg intravesical (GEMZAR) 1,000 mg, INTRAVESICAL, ONCE, 1 dose, On Wed10/29/23 at 0900, Instill into bladder via catheter and retain for 90 minutes, followed by bladder drainage. EXP 11/05/23 @ 0900 Hazardous Chemotherapy Drug: Use appropriate PPE. Antineoplastic Irritant., AMB MED ORDERS Given 10/29/2023 9:02 AM EST 1,000 mg lidocaine urojet 2 % 11 mL topical gel (GLYDO) 11 mL, OTHER, ONCE, 1 dose, On Wed10/29/23 at 0900, FOR EXTERNAL USE ONLY Intravesical administration, AMB MED ORDERS Given 10/29/2023 8:48 AM EST 11 mL Inactive Administered Medications - up to 3 most recent administrations Medication Order MAR Action Action Date Dose Rate Site ciprofloxacin HCl 500 mg tab(s) (CIPRO) 500 mg, ORAL, ONCE, 1 dose, On Wed11/04/23 at 1430, Administer 2 hours before or 4 hours after medications containing calcium, magnesium, aluminum, iron, or zinc (including antacids and sucralfate), and sevelamer. May be administered without regard to meals. Tube feedings should be held 1 hour before and 1 hour after administration., Antimicrobial indication: Prophylaxis Given 11/04/2023 2:34 PM EST 500 mg Oral lidocaine urojet 2 % 6 mL topical gel (GLYDO) 6 mL, URETHRAL, ONCE, 1 dose, On Juliette 11/04/23 at 1430 Given by LIP 11/04/2023 2:34 PM EST 6 mL Other FOR RECORDS PERTAINING TO PATIENTS WHO ARE OR HAVE BEEN ENROLLED IN A CHEMICAL DEPENDENCY/SUBSTANCEABUSE PROGRAM, SOME INFORMATION MAY BE OMITTED. This clinical summary was aggregated from multiple sources. Caution should be exercised in using it in the provision of clinical care. This summary normalizes information from multiple sources, and as a consequence, information in this document may materially change the coding, format and clinical context of patient data. In addition, data may be omitted in some cases. CLINICAL DECISIONS SHOULD BE BASED ON THE PRIMARY CLINICAL RECORDS. [facility]. provides no warranty or guarantee of the accuracy or completeness of information in this document.
--- NOTE | 2025-04-16 09:46 | STRESSREP ---
Stress Test Report Pharmacologic myocardial perfusion stress test. 74-year-old man for preoperative clearance for abnormal EKG Resting EKG demonstrates sinus rhythm with a right bundle branch block and PVCs with a rate of 60 bpm. Resting blood pressure is 142/86 mmHg. 0.4 mg of regadenoson was infused per usual protocol followed by rapid intravenous saline flush injection. Continuous EKG monitoring was performed. The maximum heart rate was 87 bpm which was 59% of max impacted heart rate the maximum workload was 1 metabolic equivalent. At rest there were no ST or T wave changes noted to suggest ischemia and at peak infusion nonspecific ST changes were noted which did not meet the criteria for ischemia. No clinical angina is noted. The final blood pressure was 140/70 mmHg. Myocardial perfusion protocol. 12 mCi of technetium 99m sestamibi was injected at rest. 0.4 mg of regadenoson was infused per usual protocol. At peak infusion 34.6 mCi of technetium 99m sestamibi was injected stress images were obtained stress and rest images were reconstructed and compared in the short axis vertical long and horizontal long axis. Gated images were also obtained. Perfusion SPECT analysis: Review of the stress images demonstrate normal uptake of tracer noted in all areas of the myocardium. The resting images similar demonstrated normal uptake of tracer noted in all areas of the myocardium. No areas of reversibility are noted to suggest ischemia and no previous infarct is noted. Gated SPECT analysis: The gated ejection fraction is 64%. Conclusion: Normal pharmacologic myocardial perfusion stress test. Preserved ejection fraction.
== END | disposition home or self-care (01) ==
LOC: CVS 06:32
PROVIDERS: PCP Family Medicine; Referring Provider Internal Medicine Cardiovascular Disease; Visit Provider Internal Medicine Cardiovascular Disease
DX: R94.31 Abnormal electrocardiogram [ECG] [EKG] (principal); I20.89 Other forms of angina pectoris
CPT/HCPCS: 78452; 93017; 93306; A9500; A4216; J2785

== ENCOUNTER → 2025-05-18 | Outpatient (CLI) | payer MEDICARE, BC, SELFPAY ==
--- NOTE | 2025-05-18 12:53 | ADUL_ITS ---
Reason For Study Reason For Study: Atherosclerosis Right Velocities Ext. Iliac Artery, dist = 78 cm./sec. Common Femoral Artery, mid = 48 cm./sec. Supf Femoral Artery, prox = 0 cm./sec. Supf Femoral Artery, mid = 0 cm./sec. Supf Femoral Artery, dist. = 0 cm./sec. Rt SFA is occluded Rt Uyen prox is occluded. Profunda Femoral Artery = 188 cm./sec. Popliteal Artery, prox. = 0 cm./sec. Popliteal Artery, mid = 47 cm./sec. Popliteal Artery, dist = 12 cm./sec. Post. Tibial Artery, prox = 20 cm./sec. Post. Tibial Artery, mid = 18 cm./sec. Post. Tibial Artery, dist = 15 cm./sec. Peroneal Artery, prox = 10 cm./sec. Peroneal Artery, mid = 10 cm./sec. Peroneal Artery,dist = 11 cm./sec. Ant. Tibial Artery, prox = 7 cm./sec. Ant. Tibial Artery, mid = 0 cm./sec. Ant. Tibial Artery, dist = 13 cm./sec. Retrograde flow noted Rt Uyen mid and Rt IGNACIO mid. Procedure Exam performed in department. /US Art Duplex Unilat Lower Ext Interpretation Summary Right femoral, popliteal and mid anterior tibial occluded. Ordering Physician: Manny Akers Referring Physician: Mahin Gomez Performed By: Galilea Bennett, BARBARA, RVT
--- NOTE | 2025-05-18 12:53 | ART_ITS ---
Reason For Study Reason For Study: Atherosclerosis Procedure A bilateral lower extremity continuous wave Doppler with analog waveform analysis and ankle brachial indexes. Left Segmental Pressures Left brachial= 142mmHg. Left posterior tibial artery = 165mmHg. Left dorsalis pedis artery = 155mmHg. Left digit = 157 mmHg. Right Segmental Pressures Right brachial= 136mmHg. Right posterior tibial artery = 77mmHg. Right dorsalis pedis artery = 72mmHg. Right digit = 57 mmHg. Indices The right ankle brachial index by the posterior tibial artery is 0.54. The right ankle brachial index by the dorsalis pedis is 0.51. The right digital-brachial index is 0.40. The left ankle brachial index by the posterior tibial artery is 1.16. The left ankle brachial index by the dorsalis pedis is 1.09. The left digital-brachial index is 1.11. VL/Ankle Brachial Index Interpretation Summary The right resting ankle-brachial index appears moderately abnormal. Left STEPHANIE _, normal. Ordering Physician: Manny Akers Referring Physician: Mahin Gomez Performed By: Galilea Bennett RDCS/RVT
== END | disposition home or self-care (01) ==
PROVIDERS: PCP Family Medicine; Referring Provider Surgery Vascular Surgery; Visit Provider Surgery Vascular Surgery
DX: Z48.812 Encounter for surgical aftercare following surgery on the circulatory system (principal); I70.221 Atherosclerosis of native arteries of extremities with rest pain, right leg; I74.3 Embolism and thrombosis of arteries of the lower extremities; I70.311 Atherosclerosis of unspecified type of bypass graft(s) of the extremities with intermittent claudication, right leg; I71.40 Abdominal aortic aneurysm, without rupture, unspecified; E78.70 Disorder of bile acid and cholesterol metabolism, unspecified; I10 Essential (primary) hypertension; F17.200 Nicotine dependence, unspecified, uncomplicated
CPT/HCPCS: 93922; 93926